=== PATIENT | female | born 1970 | race African-American/Black ===

== ENCOUNTER → 2023-04-07 09:52 | Outpatient (BNVA) | payer OTHER, SELFPAY | PROVIDERS: PCP Internal Medicine; Visit Provider Registered Nurse Emergency | DX: M17.0 Bilateral primary osteoarthritis of knee (principal); M47.816 Spondylosis without myelopathy or radiculopathy, lumbar region; M79.18 Myalgia, other site; E11.9 Type 2 diabetes mellitus without complications; M53.3 Sacrococcygeal disorders, not elsewhere classified; M25.512 Pain in left shoulder | CPT/HCPCS: 99202 ==

== ENCOUNTER 2023-05-09 06:59 | Outpatient (REF) | payer OTHER, SELFPAY ==
--- NOTE | ~2023-05-09 | FL_ITS ---
EXAMINATION: XR FLUOROSCOPY WITH IMAGES CLINICAL INFORMATION: Sacral coccygeal disorder COMPARISON: None available. TECHNIQUE: Fluoroscopy Supervised By: Dr. Jeremy Garcia. Fluoroscopy Time: 0.3 minutes. Cumulative Dose: 5.79 mGy. DAP: 0.100 Gycm2. Images: 2. FINDINGS: Images demonstrate needle and some contrast in the region of the right SI joint. Image demonstrates a needle in some contrast in the region of the left SI joint. FL/FL guidance in treatment room IMPRESSION: Imaging assistance provided during a fluoroscopic procedure
== END 2023-05-09 07:00 | disposition home or self-care (01) ==
LOC: CF 06:59
PROVIDERS: PCP Internal Medicine; Visit Provider Anesthesiology
DX: M53.3 Sacrococcygeal disorders, not elsewhere classified (principal); M47.816 Spondylosis without myelopathy or radiculopathy, lumbar region; M79.18 Myalgia, other site
CPT/HCPCS: 27096; J3301; Q9967

== ENCOUNTER 2023-05-09 07:21 | Outpatient (AMB) | payer OTHER, SELFPAY ==
[2023-05-09 07:33] VITALS: BP 130/82; PULSE 78; RESP 16; O2SAT 96; BMI 37.7
--- NOTE | 2023-05-09 07:33 | A.OFFVIS_ITS ---
Intake Vital Signs 05/09/23 07:33 05/09/23 08:09 Height 5 ft 7 in 5 ft 7 in Weight 241 lb 241 lb BMI 37.7 37.7 BP 130/82 134/80 Blood Pressure Location Rt brachial Lt brachial Position Sitting Sitting Respiration 16 14 Pulse 78 72 Pulse Source Pulse Oximeter Pulse Oximeter Pulse Oximetry (%) 96 97 Oxygen Delivery Method Room Air Room Air Comment Pre-Op Post-Op Intake Visit Reasons: BILAT THERAPEUTIC SIJ INJ/LOCAL Allergies morphine Allergy (Mild, Verified 05/09/23 07:35) Shortness of Breath fentanyl Allergy (Unknown, Verified 05/09/23 07:35) Rash [facility] Medical History (Updated 04/07/23 @ 13:10 by Robyn Cerda APRN, SAND DRIER) Allergic rhinitis Anxiety Cervical cancer COPD (chronic obstructive pulmonary disease) Depression, major, single episode, moderate Diabetes mellitus type 2, controlled Diffuse myofascial pain syndrome Hip pain Hypercholesteremia 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 Insomnia Mechanical low back pain Migraine Obstructive sleep apnea syndrome 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 Surgical History (Updated 04/07/23 @ 13:31 by Robyn Cerda APRN, SAND DRIER) H/O gastric sleeve History of total knee replacement Hx of cholecystectomy Tubal ligation status Physical Exam Vital Signs: Last Vital Signs Pulse 72 05/09/23 08:09 Resp 14 05/09/23 08:09 BP 134/80 05/09/23 08:09 Pulse Ox 97 05/09/23 08:09 Oxygen Delivery Method Room Air 05/09/23 08:09 BMI result Body Mass Index 37.7 Results Reviewed Results Reviewed: 05/09/23 07:42 Lidocaine HCl 2 % MPF [Xylocaine 2 % MPF] 5 ml .ROUTE .STK-MED ONE Triamcinolone Acetonide [Kenalog-40] 40 mg .ROUTE .STK-MED ONE 05/09/23 07:43 iohexoL 350 MG/ML [Omnipaque 350 MG/ML] 100 ml .ROUTE As directed Assessment & Plan Assessment & Plan (1) Bilateral primary osteoarthritis of knee: Code(s): M17.0 - Bilateral primary osteoarthritis of knee (2) Diabetes: Code(s): E11.9 - Type 2 diabetes mellitus without complications (3) Lumbar facet arthropathy: Code(s): M47.816 - Spondylosis without myelopathy or radiculopathy, lumbar region (4) Lumbar spondylosis: Code(s): M47.816 - Spondylosis without myelopathy or radiculopathy, lumbar region (5) Myofascial muscle pain: Code(s): M79.18 - Myalgia, other site (6) Sacroiliac joint pain: Code(s): M53.3 - Sacrococcygeal disorders, not elsewhere classified Plan: Bilateral therapeutic sacroiliac joint injection Informed consent was explained thoroughly to the patient. All questions about benefits and risks for the procedure were answered. Patient came to the operating room and was positioned prone on the operating table with the pillow under the pelvis. [employer] monitors were applied and patient was deeply sedated. Time out was performed delineating name and of the patient, allergies and the nature of the procedure. The lower back and buttocks of the patient were prepped with ChloraPrep prepped and draped with sterile utility towels. C-arm was brought over the operating field and sq picture of patient's pelvis was demonstrated on the screen. For the right joint tilting C-arm contralateral to the site of the joint the most posterior portion of the joints was superimposed with anterior silhouette of the joint. Skin was injected in the projection of the joint slightly medial to the location of the joint with 25 gauge 1/2 inch needle using local lidocaine 2% .After that 22 gauge 3 and 1/2 inch needle was driven to the right joint in tunnel vision fashion. When needle entered the joint capsule injection of the contrast was performed demonstrating intra-articular and minimally periarticular spread of the contrast. After that 4 cc. of ropivacaine 0.5% mixed with kenalog 20 mg was injected into the joint. After that the procedure was performed on the left SI joint in the mirroring fashion. Upon completion of the injections the needle was removed Sterile dressing was applied. Upon completion of the injection patient was taken outside of the operating room to the recovery room where recovered uneventfully. (7) Left shoulder pain: Code(s): M25.512 - Pain in left shoulder Plan Records have been requested from [facility] including recent MRI lumbar spine, recent labs/A1c and visit notes from pain management. Indy is a pleasant 52 year old female who presented to the office today for evaluation and management of her chronic lower back pain. On exam patient's pain appears to be multifactoral with contributions from bilateral SI joint disfunction and lumbar facet arthropathy.. Patient has exhausted conservative treatment including physical therapy that finished 11/2022, chronic Opioid therapy, NSAIDs, topical medications,massage therapy and Tens unit. She continues with HEP. Discussed options for treatment including diagnostic interventional testing, epidural steroid injections, peripheral nerve stimulation with Sprint, RFA and more permanent neuromodulation.? Informational pamphlets provided.? Patient's main pain generator most consistent with SI joint dysfunction bilaterally, she reports reproduction of pain with palpation of PSIS, positive distraction, positive compression, positive thigh thrust and positive dalila bilaterally. Will schedule patient for?fluoroscopy guided bilateral SI joint injections with local anesthetic.? Discussed with patient options for repeat injections, PNS, RFA and SI joint fusions if she receives acceptable pain relief with initial injections. Patient with positive facet loading test and tenderness to palpation over lumbar vertebrae consistent with lumbar facet arthropathy; will plan for fluoroscopy guided bilateral L3-L4-DR L5 MBB with local anesthetic after SI joint injections. If patient receives good pain relief will plan for Sprint PNS vs RFA. Patient wth history of DM type 2, she reports not taking any medication at this time and is unsure of her A1c level. Lab results have been requested from [facility]. Patient was advised to follow up as planned with [facility] for her knee pain/pending TKA. All questions and concerns have been answered and patient agrees with the plan. Follow up after injections and sooner if needed. Orders: Orders FL guidance in treatment room Today M53.3 - Sacrococcygeal disorders, not elsewhere classified Coding Level of Care Code Procedure Only Diagnoses Bilateral primary osteoarthritis of knee M17.0 Diabetes E11.9 Lumbar facet arthropathy M47.816 Lumbar spondylosis M47.816 Myofascial muscle pain M79.18 Sacroiliac joint pain M53.3 Left shoulder pain M25.512
[2023-05-09 08:09] VITALS: BP 134/80; PULSE 72; RESP 14; O2SAT 97; BMI 37.7
== END 2023-05-09 08:09 | disposition home or self-care (01) ==
LOC: HO.PMCPRC 07:21
PROVIDERS: PCP Internal Medicine; Visit Provider Anesthesiology
DX: M53.3 Sacrococcygeal disorders, not elsewhere classified (principal)
CPT/HCPCS: 27096

== ENCOUNTER 2023-06-13 08:03 | Outpatient (AMB) | payer OTHER, SELFPAY ==
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
[2023-06-13 08:25] VITALS: BP 132/64; PULSE 86; O2SAT 99; BMI 37.6
== END 2023-06-13 08:40 | disposition home or self-care (01) ==
PROVIDERS: PCP Internal Medicine; Visit Provider Registered Nurse Emergency
DX: M25.512 Pain in left shoulder (principal); E11.9 Type 2 diabetes mellitus without complications; M47.816 Spondylosis without myelopathy or radiculopathy, lumbar region; M79.18 Myalgia, other site; M53.3 Sacrococcygeal disorders, not elsewhere classified
CPT/HCPCS: 99214

== ENCOUNTER → 2023-06-13 08:03 | Outpatient (BNVA) | payer OTHER, SELFPAY | PROVIDERS: PCP Internal Medicine; Visit Provider Registered Nurse Emergency | DX: M25.512 Pain in left shoulder (principal); E11.9 Type 2 diabetes mellitus without complications; M47.816 Spondylosis without myelopathy or radiculopathy, lumbar region; M79.18 Myalgia, other site; M53.3 Sacrococcygeal disorders, not elsewhere classified; Z98.890 Other specified postprocedural states | CPT/HCPCS: 99212 ==

== ENCOUNTER 2023-06-22 11:05 | Outpatient (REF) | payer OTHER, SELFPAY ==
--- NOTE | ~2023-06-22 | XR_ITS ---
EXAMINATION: XR SHOULDER, LEFT CLINICAL INFORMATION: Pain in left shoulder COMPARISON: None available. TECHNIQUE: 5 views of the left shoulder. FINDINGS: Mild degenerative changes acromioclavicular joint. Mild hypertrophic change along the lateral inferior aspect of the acromion. Glenohumeral alignment preserved with mild degenerative changes. XR/XR shoulder LT min 2V IMPRESSION: Mild degenerative changes.
== END 2023-06-22 11:06 | disposition home or self-care (01) ==
LOC: HO.XRAY 11:05
PROVIDERS: Visit Provider Registered Nurse Emergency
DX: M25.512 Pain in left shoulder (principal)
CPT/HCPCS: 73030

== ENCOUNTER 2023-07-27 10:01 | Outpatient (AMB) | payer OTHER, SELFPAY ==
--- NOTE | 2023-07-27 10:05 | A.OFFVIS_ITS ---
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 Patient reports about 20 years ago she slipped on ice, the past 6-8 months pain has increased. States pain and catching with lifting arm above head. Her pain radiates down her arm and tingling in her hands. No relief with oxycodone that is prescribed for fibromyalgia. No relief with ibuprofen or Tylenol. No other tx. 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 She states she has worsening pain and catching in her shoulder which radiates down to her arm. Her pain comes with overhead reaching and ROM. She also c/o intermittent tingling in her hands which is worse at night and in the mornings. She reports she is unable to sleep on her left shoulder. She denies any neck pain. She finds no relief with ibuprofen or Tylenol. She had tried icing and pain cream in the past with benefits. She has not had any treatment in the past. She has a history of fall on her left shoulder due to slipping on ice about 20 years ago. She has a history of fibromyalgia and was prescribed oxycodone which did not provide her any relief. She also has a history of diabetes. Her sugar level is currently controlled. 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 Obstructive sleep apnea syndrome Hip pain Mechanical low back pain Migraine Insomnia Hypercholesteremia 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 Diffuse myofascial pain syndrome Diabetes mellitus type 2, controlled Depression, major, single episode, moderate Anxiety Allergic rhinitis Cervical cancer COPD (chronic obstructive pulmonary disease) Surgical History Tubal ligation status H/O gastric sleeve History of total knee replacement Hx of cholecystectomy Social History (Updated 07/27/23 @ 10:10 by LANA Dawson) Patient Tobacco Use Status: Former Tobacco user Current occupational status: disabled Current occupation: right hand dominant Review of Systems Const All systems reviewed & are unremarkable except as noted in HPI and below Physical Exam Vital Signs: BMI result Body Mass Index 37.6 Const General: cooperative, healthy appearing, comfortable, no acute distress, well developed and alert Orientation/consciousness: patient oriented x3 HEENT Head: Yes normal to inspection, Yes normocephalic and Yes atraumatic Eyes General: appearance normal, both eyes and all related structures Resp Effort & Inspection: normal respiratory effort and able to speak in complete sentences Cardio Rate: regular rate Peripheral pulses: Peripheral pulses 2+ throughout GI Palpation (GI): Soft to palpation Skin Lesions: no lesions Rashes: no rashes Neuro General: patient oriented x3 Extrem Other: Left shoulder normal to inspection. Tenderness over the bicipital groove and along the deltoid region of the shoulder. Forward flexion to 175, external rotation to 90, internal rotation to S1. Weakness on the left with RTC testing when compared to the contralateral side. Negative Mohr and cross body abduction. NVI. Left wrist: Normal to inspection. Tenderness over the carpal canal. Numbness and tingling over the median nerve distribution of the right hand. Able to make a full fist and fully extend all fingers. Negative Tinel's. Office Procedures Joint Injection/Drain Joint Injection/Drain Primary Site: left shoulder Prep: site was prepped using aseptic technique, ethochloride spray was applied and injection warnings given Injected: 40 mg of, DepoMedrol, with 8 mL of, 1% plain lidocaine and in the subcromial space Approach Used: posterolateral Procedure: The patient tolerated the procedure well and there was some relief with the local anesthesia Coding 35067 - Glenohumeral/Tronchanteric Bursa/Intraarticular Procedure code (CPT) selection complete Results Reviewed Results Reviewed: 07/27/23 10:29 Lidocaine HCl 2 % MPF [Xylocaine 2 % MPF] 5 ml .ROUTE .STK-MED ONE methylPREDNISolone acetate [DEPO-MedroL] 40 mg .ROUTE .STK-MED ONE xrays of the left shoulder obtained on 06/20/23 show mild arthritis changes along the acromion with sclerotic changes over the greater tuberosity. Assessment & Plan Assessment & Plan (1) Tendonitis of left rotator cuff: Code(s): M75.82 - Other shoulder lesions, left shoulder Plan Left shoulder: We discussed options today which include steroid injection. They did consent to move forward with the left shoulder injection, which was tolerated well. I recommended rest, ice and elevation and OTC anti-inflam matories PRN for discomfort. She was referred to a course of physical therapy in the office today. If symptoms persist in 6-8 weeks, I would have her contact the office and we can discuss further MRI imaging. Left wrist: An EMG nerve conduction study has been ordered to further evaluate the etiology of her numbness in the left hand. Orders: Orders PT Evaluation and Treatment Today M75.82 - Other shoulder lesions, left shoulder NE nerve conduction velocity Today R20.0 - Anesthesia of skin, R20.2 - Paresthesia of skin NE electromyogram (EMG) Today R20.0 - Anesthesia of skin, R20.2 - Paresthesia of skin Patient Instructions: Scribed for Belinda Nance PA-C, by [place] medical librarian, on 07/27/2023 at 10:00 AM EST. I, Belinda Nance PA-C, have personally reviewed and agree with the information entered by the scribe. Coding Level of Care Code New Pt Level 3 (21147) Diagnoses Tendonitis of left rotator cuff M75.82 CPT Codes Coding - Joint 7: 97033 - Glenohumeral/Tronchanteric Bursa/Intraarticular ([id number])
[2023-07-27 10:20] VITALS: BMI 37.6
== END 2023-07-27 10:56 | disposition home or self-care (01) ==
PROVIDERS: PCP Internal Medicine; Visit Provider Physician Assistant
DX: M75.82 Other shoulder lesions, left shoulder (principal)
CPT/HCPCS: 20610; 99203

== ENCOUNTER → 2023-07-27 10:01 | Outpatient (BNVA) | payer OTHER, SELFPAY | PROVIDERS: PCP Internal Medicine; Visit Provider Physician Assistant | DX: M75.82 Other shoulder lesions, left shoulder (principal) | CPT/HCPCS: 20610; 99202; J1020 ==

== ENCOUNTER 2023-08-15 07:23 | Outpatient (REF) | payer OTHER, SELFPAY ==
--- NOTE | ~2023-08-15 | FL_ITS ---
EXAMINATION: XR FLUOROSCOPY WITH IMAGES CLINICAL INFORMATION: Sacrococcygeal disorders, not elsewhere classified. COMPARISON: None available. TECHNIQUE: Fluoroscopy Supervised By: Dr. Jeremy Garcia. Fluoroscopy Time: 0.2 minutes. Cumulative Dose: 4.20 mGy. DAP: 0.0729 Gycm2. Images: 2. FINDINGS: Image demonstrates needle placement and contrast injection adjacent to bilateral sacroiliac joints FL/FL guidance in treatment room IMPRESSION: Fluoroscopy guidance for pain management
== END 2023-08-15 07:24 | disposition home or self-care (01) ==
LOC: CF 07:23
PROVIDERS: Visit Provider Anesthesiology
DX: M35.3 Polymyalgia rheumatica (principal); M47.816 Spondylosis without myelopathy or radiculopathy, lumbar region; M79.18 Myalgia, other site; M17.0 Bilateral primary osteoarthritis of knee; M25.512 Pain in left shoulder; E11.9 Type 2 diabetes mellitus without complications
CPT/HCPCS: 27096; J3301

== ENCOUNTER 2023-08-15 10:01 | Outpatient (AMB) | payer OTHER, SELFPAY ==
[2023-08-15 10:13] VITALS: BP 134/88; PULSE 89; RESP 17; O2SAT 94; BMI 37.6
--- NOTE | 2023-08-15 10:13 | MHC.OFFVIS ---
Intake Vital Signs 08/15/23 10:13 08/15/23 10:15 Height 5 ft 7 in 5 ft 7 in Weight 240 lb 240 lb BMI 37.6 37.6 BP 134/88 130/82 Blood Pressure Location Lt brachial Lt brachial Position Sitting Sitting Respiration 17 16 Pulse 89 80 Pulse Source Pulse Oximeter Pulse Oximeter Pulse Oximetry (%) 94 96 Oxygen Delivery Method Room Air Room Air Comment pre-op post-op Intake Visit Reasons: BILAT SIJ STEROID INJ/LOCAL Allergies morphine Allergy (Mild, Verified 08/15/23 10:15) Shortness of Breath fentanyl Allergy (Unknown, Verified 08/15/23 10:15) Rash bee pollen Allergy (Verified 08/15/23 10:15) bee sting- swelling [facility] Medical History (Updated 07/27/23 @ 10:32 by Belinda Nance PA-C) 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 Obstructive sleep apnea syndrome Hip pain Mechanical low back pain Migraine Insomnia Hypercholesteremia 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 Diffuse myofascial pain syndrome Diabetes mellitus type 2, controlled Depression, major, single episode, moderate Anxiety Allergic rhinitis Cervical cancer COPD (chronic obstructive pulmonary disease) Surgical History Tubal ligation status H/O gastric sleeve History of total knee replacement Hx of cholecystectomy Social History (Updated 07/27/23 @ 10:10 by LANA Dawson) Patient Tobacco Use Status: Former Tobacco user Current occupational status: disabled Current occupation: right hand dominant Physical Exam Vital Signs: Last Vital Signs Pulse 80 08/15/23 10:15 Resp 16 08/15/23 10:15 BP 130/82 08/15/23 10:15 Pulse Ox 96 08/15/23 10:15 Oxygen Delivery Method Room Air 08/15/23 10:15 BMI result Body Mass Index 37.6 Assessment & Plan Assessment & Plan (1) Left shoulder pain: Code(s): M25.512 - Pain in left shoulder (2) Diabetes: Code(s): E11.9 - Type 2 diabetes mellitus without complications (3) Lumbar facet arthropathy: Code(s): M47.816 - Spondylosis without myelopathy or radiculopathy, lumbar region (4) Lumbar spondylosis: Code(s): M47.816 - Spondylosis without myelopathy or radiculopathy, lumbar region (5) Myofascial muscle pain: Code(s): M79.18 - Myalgia, other site (6) Sacroiliac joint dysfunction of both sides: Code(s): M53.3 - Sacrococcygeal disorders, not elsewhere classified (7) Bilateral primary osteoarthritis of knee: Code(s): M17.0 - Bilateral primary osteoarthritis of knee (8) Sacroiliac joint pain: Code(s): M53.3 - Sacrococcygeal disorders, not elsewhere classified Plan: Bilateral therapeutic sacroiliac joint injection Informed consent was explained thoroughly to the patient. All questions about benefits and risks for the procedure were answered. Patient came to the operating room and was positioned prone on the operating table with the pillow under the pelvis. [employer] monitors were applied and patient was deeply sedated. Time out was performed delineating name and of the patient, allergies and the nature of the procedure. The lower back and buttocks of the patient were prepped with ChloraPrep prepped and draped with sterile utility towels. C-arm was brought over the operating field and sq picture of patient's pelvis was demonstrated on the screen. For the right joint tilting C-arm contralateral to the site of the joint the most posterior portion of the joints was superimposed with anterior silhouette of the joint. Skin was injected in the projection of the joint slightly medial to the location of the joint with 25 gauge 1/2 inch needle using local lidocaine 2% .After that 22 gauge 3 and 1/2 inch needle was driven to the right joint in tunnel vision fashion. When needle entered the joint capsule injection of the contrast was performed demonstrating intra-articular and minimally periarticular spread of the contrast. After that 4 cc. of ropivacaine 0.5% mixed with kenalog 20 mg was injected into the joint. After that the procedure was performed on the left SI joint in the mirroring fashion. Upon completion of the injections the needle was removed Sterile dressing was applied. Upon completion of the injection patient was taken outside of the operating room to the recovery room where recovered uneventfully. Plan Patient presented to the office today for follow up bilateral therapeutic SI joint injections. She reports 100% pain relief for 3 weeks after procedure bilaterally, sustained pain relief on the right side. Pain on the left has started to return but not to pre-procedure level. Patient would like to plan for repeat injections, she is aware that 5 weeks is too soon for repeat, will schedule after 12 weeks from initial injections. XR of right shoulder ordered, patient referred to Ortho for evaluation. If she is not a surgical candidate may return here for treatment. We discussed options for treatment including diagnostic testing, steroid injections, PNS, or RFA. Given patient is diabetic and already receiving steroid injections of her SI joints will plan for US guided diagnostic suprascapular NB with local anesthetic with plan for Sprint to follow if she receives good results from diagnostic. Topical compound cream sent to pharmacy. Patient instructed on use. May apply to left shoulder and/or over PSIS. All questions and concerns have been addressed with patient, she is in agreement with plan. Patient will follow up here after repeat injections, orthopedic evaluation or sooner if needed. Orders: Orders FL guidance in treatment room Today M53.3 - Sacrococcygeal disorders, not elsewhere classified Coding Level of Care Code Procedure Only Diagnoses Left shoulder pain M25.512 Diabetes E11.9 Lumbar facet arthropathy M47.816 Lumbar spondylosis M47.816 Myofascial muscle pain M79.18 Sacroiliac joint dysfunction of both sides M53.3 Bilateral primary osteoarthritis of knee M17.0 Sacroiliac joint pain M53.3
[2023-08-15 10:15] VITALS: BP 130/82; PULSE 80; RESP 16; O2SAT 96; BMI 37.6
== END 2023-08-15 11:21 | disposition home or self-care (01) ==
LOC: HO.PMCPRC 10:01
PROVIDERS: PCP Internal Medicine; Visit Provider Anesthesiology
DX: M53.3 Sacrococcygeal disorders, not elsewhere classified (principal)
CPT/HCPCS: 27096

== ENCOUNTER 2023-09-19 09:37 | Outpatient (AMB) | payer OTHER, SELFPAY ==
[2023-09-19 09:47] VITALS: BP 156/90; PULSE 73; RESP 18; O2SAT 96; BMI 38.1
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
== END 2023-09-19 10:21 | disposition home or self-care (01) ==
PROVIDERS: PCP Internal Medicine; Visit Provider Registered Nurse Emergency
DX: M47.816 Spondylosis without myelopathy or radiculopathy, lumbar region (principal); M79.18 Myalgia, other site; M53.3 Sacrococcygeal disorders, not elsewhere classified
CPT/HCPCS: 99213

== ENCOUNTER → 2023-09-19 09:37 | Outpatient (BNVA) | payer OTHER, SELFPAY | PROVIDERS: PCP Internal Medicine; Visit Provider Registered Nurse Emergency | DX: G89.29 Other chronic pain (principal); M54.50 Low back pain, unspecified; M47.12 Other spondylosis with myelopathy, cervical region; M47.22 Other spondylosis with radiculopathy, cervical region; M53.3 Sacrococcygeal disorders, not elsewhere classified; M79.18 Myalgia, other site | CPT/HCPCS: 99212 ==

== ENCOUNTER 2023-10-19 13:12 | Outpatient (AMB) | payer OTHER, SELFPAY ==
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
[2023-10-19 13:21] VITALS: BP 137/71; PULSE 74; RESP 18; O2SAT 96; BMI 38.1
== END 2023-10-19 13:58 | disposition home or self-care (01) ==
PROVIDERS: PCP Internal Medicine; Visit Provider Registered Nurse Emergency
DX: M47.816 Spondylosis without myelopathy or radiculopathy, lumbar region (principal); M79.18 Myalgia, other site; M53.3 Sacrococcygeal disorders, not elsewhere classified
CPT/HCPCS: 99213

== ENCOUNTER → 2023-10-19 13:12 | Outpatient (BNVA) | payer OTHER, SELFPAY | PROVIDERS: PCP Internal Medicine; Visit Provider Registered Nurse Emergency | DX: M47.816 Spondylosis without myelopathy or radiculopathy, lumbar region (principal); M79.18 Myalgia, other site; M53.3 Sacrococcygeal disorders, not elsewhere classified | CPT/HCPCS: 99212 ==

== ENCOUNTER → 2023-11-30 07:59 | Outpatient (BNVA) | payer OTHER, SELFPAY | PROVIDERS: PCP Internal Medicine; Visit Provider Physician Assistant Surgical ==

== ENCOUNTER 2023-12-11 08:19 | Outpatient (AMB) | payer OTHER, SELFPAY ==
--- OUTSIDE RECORDS SUMMARY | 2023-12-11 08:20 | XMS_ITS | Continuity of Care Document ---
Author Name Unknown Organization 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 [address] [place], [place] [address] Allergies, Adverse Reactions, Alerts Substance Reaction Severity Status morphine C/O: itching Active Bee Stings swelling, loss of consciousness Active fentaNYL C/O: itching Active Immunizations Given and Recorded Vaccine Date Status Refusal Reason influenza virus vaccine, inactivated 1 09/16/21 Gi cyn influenza virus vaccine, inactivated 2 09/01/20 Gi cyn influenza virus vaccine, inactivated 3 07/23/19 Gi cyn influenza virus vaccine, inactivated 4 08/17/18 Gi cyn influenza virus vaccine, inactivated 5 08/31/17 Gi cyn influenza virus vaccine, inactivated 08/07/15 Give n influenza virus vaccine, inactivated 6 08/21/14 Gi cyn influenza virus vaccine, inactivated 7 07/25/13 Gi cyn influenza virus vaccine, inactivated 8 07/06/12 Gi cyn influenza virus vaccine, inactivated 07/06/11 Give n SARS-CoV-2 (COVID-19) mRNA BNT-162b2 vac 06/23/21 Recorded SARS-CoV-2 (COVID-19) mRNA BNT-162b2 vac 06/02/21 Recorded Typhoid Vaccine, Inactivated 11/19/19 Given Hepatitis A Adult Vaccine 11/19/19 Given tetanus-diphtheria toxoids (Td) 04/23/19 Given tetanus-diphtheria toxoids (Td) 9 11/27/96 Given pneumococcal 23-valent vaccine 10 01/22/19 Given diphtheria-tetanus toxoids (DT) 11 03/19/09 Given Influenza Virus Vaccine (oldterm) 12 10/08/07 Give n 1Result Comment: [id number] given w/out incident 2Result Comment: [facility]: [id number] 3Result Comment: [id number] given w/out incident 4Result Comment: [08/17/2018] [facility] [id number] 5Result Comment: [08/31/2017] given w/out incident [facility]: [phone] 6Result Comment: [08/21/2014] given w/o incident...AA 7Result Comment: [07/25/2013] given w/out incident 8Admin Note: vis sheet given. 9Admin Note: historial data 10Result Comment: [id number] 11Admin Note: mass bio 12Admin Note: sanofi Medications 8 HOUR ARTHRITIS PAIN RELIE 650 Tablet 8 HOUR ARTHRITIS PAIN RELIE 650 Tablet, See Instructions, # 90 tablet, 5 Refills, Maintenance, TAKE2 TABLETS BY MOUTH EVERY 8 HOURS NEEDED FOR PAIN FOR 30 DAYS, 167, cm, 01/14/20 9:59:00 EDT, Height Start Date: 10/27/20 Status: Ordered Advair HFA 115 mcg / 21 mcg See Instructions, INHALE 2 PUFFS BY MOUTH TWO TIMES A DAY RINSE MOUTH AFTER EVERY USE., # 36 Gm, 3 Refills, [facility], [facility], INHALE 2 PUFFS BY MOUTH TWO TIMES A DAY RINSE MOUTH AFTER EVERY USE., 177, cm, 10/19/21 10:00:00 EST, Height, 108, kg... Start Date: 12/21/21 Status: Ordered amitriptyline 100 mg oral tablet 1.5 tablet = 150 mg, By Mouth, Daily at bedtime, # 135 tablet, 3 Refills, Maintenance, 06/02/21 11:36:00 EDT, [facility], cm, 06/02/21 11:35:00 EDT, Height, 108, kg, 05/24/21 19:44:00 EDT, Dry Weight Start Date: 06/02/21 Stop Date: 05/28/22 Status: Ordered amLODIPine 10 mg oral tablet 10 mg, 1, tablet, By Mouth, Daily, # 90 tablet, Refills 1, Tot. Refills 1, Maintenance, 05/28/22 11:36:00 EDT, Route to Pharmacy Electronically, [facility], 177, cm, 10/19/21 10:00:00EST, Height, 108, kg, 05/24/21 19:44:00 EDT, Dry We... Start Date: 05/28/22 Stop Date: 11/24/22 Status: Ordered atorvastatin 40 mg oral tablet 1 tablet = 40 mg, By Mouth, Daily, # 90 tablet, 3 Refills, Maintenance, 01/13/22 17:26:00 EDT, Tablet, increase in dose, 177, cm, 12/21/21 8:59:00 EST, Height, 108, kg, 05/24/21 19:44:00 EDT, Dry Weight Start Date: 01/13/22 Stop Date: 01/08/23 Status: Ordered Bladder pads 120/case Bladder pads 120/case, See Instructions, # 2 each, Refills 3, Tot. Refills 3, Maintenance, use 1 to2 pads daily as needed for urinary incontinence R32, 02/11/21 13:29:00 EDT, Supply Start Date: 02/11/21 Status: Ordered buPROPion 300 mg/24 hours (XL) oral tablet, extended release 1 tablet = 300 mg, By Mouth, Daily, # 90 tablet, 3 Refills, Maintenance, 09/16/21 9:24:00 EST, ER Tablet, [facility], increase in dose, 177, cm, 06/02/21 11:35:00 EDT, Height, 108, kg, 05/24/21 19:44:00 EDT, Dry Weight Start Date: 09/16/21 Stop Date: 09/11/22 Status: Ordered busPIRone 10 mg oral tablet 10 mg, 1, tablet, By Mouth, 2 times a day, # 180 tablet, Refills 3, Tot. Refills 3, Maintenance, 09/16/21 9:24:00 EST, Route to Pharmacy Electronically, [facility], 177, cm, 06/02/21 11:35:00 EDT, Height, 108, kg, 05/24/21 19:44:00 EDT... Start Date: 09/16/21 Stop Date: 09/11/22 Status: Ordered cetirizine 10 mg oral tablet 1 tablet, By Mouth, Daily, PRN NEEDED FOR ALLERGY SYMPTOMS, # 30 tablet, 5 Refills, [facility], 177, cm, 09/16/21 10:06:00 EST, Height, 108, kg, 05/24/21 19:44:00 EDT, Dry Weight Start Date: 09/28/21 Status: Ordered CPAP Supplies - Tubing, Filter, Mask, Water Chamber, Head Gear CPAP Supplies - Tubing, Filter, Mask, Water Chamber, Head Gear, See Instructions, # 1 kit, Refills 11, Tot. Refills 11, Maintenance, use daily at bedtime for Obstructive Sleep Apnea, 10/02/17 8:48:10, Compound Start Date: 10/02/17 Status: Ordered EPINEPHrine 0.3 mg injectable solution See Instructions, INJECT 0.3 MG INTRAMUSCULAR ONCE NEEDED FOR ANAPHYLAXIS (SEVERE ALLERGY), # 2 Unknown, 1 Refills, [facility], 177, cm, 06/02/21 11:35:00 EDT, Height, 108, kg, 05/24/21 19:44:00 EDT, Dry Weight Start Date: 09/08/21 Status: Ordered FLUoxetine 20 mg oral capsule 3, capsule, By Mouth, Daily, for 90 days, # 270 capsule, Refills 0, Physician Stop, Route to Pharmacy Electronically, [facility], 177, cm, 10/19/21 10:00:00 EST, Height, 108, kg, 05/24/21 19:44:00 EDT, Dry Weight Start Date: 11/30/21 Stop Date: 02/28/22 Status: Ordered gabapentin 300 mg oral capsule See Instructions, TAKE 3 CAPSULES BY MOUTH IN THE MORNING, 3 CAPSULES EARLY PM AND 4 CAPSULES AT BEDTIME., # 900 capsule, Refills 3, Instructions Replace Required Details, Route to Pharmacy Electronically, [facility], 177, cm, 12/21/21 8:59:... Start Date: 01/11/22 Status: Ordered gloves, large gloves, large, See Instructions, # 50 each, Refills 11, Tot. Refills 11, Maintenance, use when handling soiled linen Dx: N39.4, 03/20/20 17:02:00 EDT, Supply Start Date: 03/20/20 Status: Ordered losartan 50 mg oral tablet 50 mg, 1, tablet, By Mouth, Daily, # 90 tablet, Refills 3, Tot. Refills 3, Maintenance, 06/02/21 11:36:00 EDT, Route to Pharmacy Electronically, [facility], lower dose, 177, cm, 06/02/21 11:35:00 EDT, Height, 108, kg, 05/24/21 19:44:00... Start Date: 06/02/21 Stop Date: 05/28/22 Status: Ordered Mapap Arthritis Pain 650 mg oral tablet, extended release 2 tablet, By Mouth, Every 8 hours, PRN NEEDED FOR PAIN FOR, for 30 days, # 90 tablet, 9 Refills,Physician Stop 10/17/22 9:00:00 EST, 12/21/21 9:00:00 EST, [facility], 177, cm, 12/21/21 8:59:00 EST, Height, 108, kg, 05/24/21 19:44:0... Start Date: 12/21/21 Stop Date: 10/17/22 Status: Ordered nebulizer nebulizer, See Instructions, # 1 kit, Refills 0, Tot. Refills 0, Maintenance, use as directed for shortness of breath Dx: COPD, 06/02/21 11:28:00 EDT, Supply Start Date: 06/02/21 Status: Ordered OxyCONTIN 15 mg oral tablet, extended release See Instructions, TAKE 1 TABLET BY MOUTH EVERY 12 HOURS NEEDED FOR SEVERE PAIN FOR 28 DAYS, # 56tablet, 0 Refills, Maintenance, 01/18/22 7:46:00 EDT, [facility], 177, cm, :59:00 EST, Height, 108, kg, 05/24/21 19:44:00 EDT... Start Date: 01/18/22 Status: Ordered Periwash Perineal cleaning solution Periwash Perineal cleaning solution, See Instructions, # 1,000 mL, Refills 3, Tot. Refills 3, Maintenance, apply as directed as needed Dx: urine incontinence (N39.4), 03/20/20 17:02:00 EDT, Supply Start Date: 03/20/20 Status: Ordered Protonix 40 mg oral delayed release tablet 1 tablet = 40 mg, By Mouth, Daily, # 90 tablet, 3 Refills, Maintenance, 09/16/21 9:24:00 EST, EC Tablet, 177, cm, 06/02/21 11:35:00 EDT, Height, 108, kg, 05/24/21 19:44:00 EDT, Dry Weight Start Date: 09/16/21 Stop Date: 09/11/22 Status: Ordered spironolactone 25 mg oral tablet 25 mg, 1, tablet, By Mouth, 2 times a day, # 180 tablet, Refills 1, Tot. Refills 1, Maintenance, 01/11/22 15:16:00 EDT, Route to Pharmacy Electronically, [facility], Partial fill uponpatient request if the prescription is for a schedu... Start Date: 01/11/22 Stop Date: 07/10/22 Status: Ordered Ventolin HFA 108 mcg/inh inhalation aerosol with adapter 2 puffs, Inhalation, 4 times a day, PRN NEEDED FOR WHEEZING, # 18 Gm, 6 Refills, 12/28/21 11:00:00 EST, [facility], 177, cm, 12/21/21 8:59:00 EST, Height, 108, kg, 05/24/21 19:44:00 EDT, Dry Weight Start Date: 12/28/21 Status: Ordered Zofran 4 mg oral tablet 1 tablet = 4 mg, By Mouth, Every 8 hours, PRN Nausea & Vomiting, # 12 tablet, 0 Refills, Acute 06/09/22 10:43:00 EDT, 06/09/21 10:43:00 EDT, Tablet, [facility], Partial fill upon patient request if the prescription is for a schedule II... Start Date: 06/09/21 Stop Date: 06/09/22 Status: Ordered zolpidem 10 mg oral tablet 1 tablet, By Mouth, Daily at bedtime, PRN NEEDED FOR INSOMNIA, # 28 tablet, 0 Refills, Acute 02/18/22 7:47:00 EDT, 01/18/22 7:47:00 EDT, [facility] refill when due, 177, cm, 12/21/21 8:59:00 EST, Height, 108, kg, 05/24/21 19:44:00... Start Date: 01/18/22 Stop Date: 02/18/22 Status: Ordered Problem List Condition Effective Dates Status Health Status Inform ant Allergic rhinitis(Confirmed) Active Anxiety(Confirmed) Active Knee pain(Confirmed) Active Hip pain(Confirmed) Active Cholecystectomy(Confirmed) 05/1993 Active COPD - Chronic obstructive p ulmonary disease(Confirmed) Active Ex-cigarette smoker(Confirmed) Active Family history of alcoholism(Confirmed) Active Family history of substance abuse(Confirmed) Active Family history of depression(Confirmed) Active FH: CVA/stroke (grandmother)(Confirmed) Active FH: Diabetes mellitus (aunt)(Confirmed) Active FH: 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 (mom)(Confirmed) Active [facility] current use of opi ate analgesic(Confirmed) Active Hx of total RIGHT knee arthroplasty(Confirmed) 12/12/13 Active Hypercholesterolemia(Confirmed) 2004 Active 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(Confirmed) 2001 Active Insomnia(Confirmed) Active Mechanical low back pain(Confirmed) Active Depression, major(Confirmed) Active Migraine(Confirmed) Active Diffuse myofascial pain(Confirmed) Active Obese class II(Confirmed) Active Obesity(Confirmed) 02/12/13 Active Osteoarthritis of knee(Confirmed) Active 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
--- OUTSIDE RECORDS SUMMARY | 2023-12-11 08:20 | XMS_ITS | Continuity of Care Document ---
Author Name Unknown Organization [facility] Address [address] [place] [address]- Care Team Providers Care Apple Sorter Name Role Phone Demario Nassar MD Primary Care Physician Encounter [facility] Date(s): 10/02/23 - 11/01/23 [facility] [address] [place], [place] [address] Allergies, Adverse Reactions, Alerts Substance Reaction Severity Status morphine C/O: itching Active Bee Stings swelling, loss of consciousness Active fentaNYL C/O: itching Active Immunizations Given and Recorded Vaccine Date Status Refusal Reason influenza virus vaccine, inactivated 1, 2 12/05/22 Given influenza virus vaccine, inactivated 3 09/16/21 Gi cyn influenza virus vaccine, inactivated 4 09/01/20 Gi cyn influenza virus vaccine, inactivated 5 07/23/19 Gi cyn influenza virus vaccine, inactivated 6 08/17/18 Gi cyn influenza virus vaccine, inactivated 7 08/31/17 Gi cyn influenza virus vaccine, inactivated 08/07/15 Give n influenza virus vaccine, inactivated 8 08/21/14 Gi cyn influenza virus vaccine, inactivated 9 07/25/13 Gi cyn influenza virus vaccine, inactivated 10 07/06/12 G iven influenza virus vaccine, inactivated 07/06/11 Give n SARS-CoV-2 (COVID-19) mRNA BNT-162b2 vac 06/23/21 Recorded SARS-CoV-2 (COVID-19) mRNA BNT-162b2 vac 06/02/21 Recorded Typhoid Vaccine, Inactivated 11/19/19 Given Hepatitis A Adult Vaccine 11/19/19 Given tetanus-diphtheria toxoids (Td) 04/23/19 Given tetanus-diphtheria toxoids (Td) 11 11/27/96 Given pneumococcal 23-valent vaccine 12 01/22/19 Given diphtheria-tetanus toxoids (DT) 13 03/19/09 Given Influenza Virus Vaccine (oldterm) 14 10/08/07 Give n 1Early/Late Reason: Early/Late Reason: Other : not documented 2Result Comment: [id number] given w/out incident 3Result Comment: [id number] given w/out incident 4Result Comment: [facility]: 95241-344-24 5Result Comment: [id number] given w/out incident 6Result Comment: [08/17/2018] [facility] [id number] 7Result Comment: [08/31/2017] given w/out incident [facility]: [id number] 8Result Comment: [08/21/2014] given w/o incident...AA 9Result Comment: [07/25/2013] given w/out incident 10Admin Note: vis sheet given. 11Admin Note: historial data 12Result Comment: [id number] 13Admin Note: mass bio 14Admin Note: sanofi Medications 8 HOUR ARTHRITIS PAIN RELIE 650 Tablet 8 HOUR ARTHRITIS PAIN RELIE 650 Tablet, See Instructions, # 90 tablet, 5 Refills, Maintenance, TAKE2 TABLETS BY MOUTH EVERY 8 HOURS NEEDED FOR PAIN FOR 30 DAYS, 167, cm, 01/14/20 9:59:00 EDT, Height Start Date: 10/27/20 Status: Ordered acetaminophen 650 mg oral tablet, extended release 2 tablet, By Mouth, Every 8 hours, PRN NEEDED FOR PAIN, # 80 tablet, 5 Refills, Maintenance, 07/28/23 13:25:00 EDT, [facility], [facility], [facility], 05/29/23 18:21:00 EDT, Height, 114.4, kg, 02/14/22 21:57:00 EDT, Dry Weight Start Date: 07/28/23 Status: Ordered Advair HFA 115 mcg / 21 mcg 2 puffs, Inhalation, 2 times a day, AFTER EVERY USE., # 36 Gm, 1 Refills, Maintenance, 07/28/23 13:25:00 EDT, [facility], [facility], INHALE 2 PUFFS BY MOUTH TWO TIMES A DAY RINSE MOUTH AFTER EVERYUSE., 167, cm, 05/29/23 18:21:00 EDT, Height, 114.4... Start Date: 07/28/23 Status: Ordered All Day Allergy 10 mg oral tablet 1 tablet, By Mouth, Daily, PRN NEEDED FOR ALLERGY SYMPTOMS, # 30 tablet, 5 Refills, Maintenance,06/20/23 7:39:00 EDT, [facility], 167, cm, 05/29/23 18:21:00 EDT, Height, 114.4, kg, 02/14/22 21:57:00 EDT, Dry Weight Start Date: 06/20/23 Status: Ordered amLODIPine 10 mg oral tablet 10 mg, 1, tablet, By Mouth, Daily, # 90 tablet, Refills 3, Tot. Refills 3, Maintenance, 11/25/22 15:31:00 EST, Route to Pharmacy Electronically, [facility], 177, cm, 12/21/21 8:59:00 EST, Height, 114.4, kg, 02/14/22 21:57:00 EDT, Dry W... Start Date: 11/25/22 Stop Date: 11/20/23 Status: Ordered atorvastatin 40 mg oral tablet 1 tablet, By Mouth, Daily, # 90 tablet, 1 Refills, Maintenance, 02/03/23 16:11:00 EDT, [facility], 167, cm, 12/05/22 10:53:00 EST, Height, 114.4, kg, 02/14/22 21:57:00 EDT, Dry Weight Start Date: 02/03/23 Status: Ordered Bladder pads 120/case Bladder pads 120/case, See Instructions, # 2 each, Refills 3, Tot. Refills 3, Maintenance, use 1 to2 pads daily as needed for urinary incontinence R32, 02/11/21 13:29:00 EDT, Supply Start Date: 02/11/21 Status: Ordered buPROPion 200 mg/12 hours (SR) oral tablet, extended release 1 tablet = 200 mg, By Mouth, Daily, # 30 tablet, 0 Refills, Maintenance, 05/29/23 18:14:00 EDT, ER Tablet, Partial fill upon patient request if the prescription is for a schedule II opioid drug. Start Date: 05/29/23 Stop Date: 06/28/23 Status: Ordered busPIRone 15 mg oral tablet 1 tablet = 15 mg, By Mouth, Daily at bedtime, # 30 tablet, 0 Refills, Maintenance, 05/29/23 18:16:00 EDT, Tablet, Partial fill upon patient request if the prescription is for a schedule II opioid drug. Start Date: 05/29/23 Stop Date: 06/28/23 Status: Ordered busPIRone 7.5 mg oral tablet 2 tablet = 15 mg, By Mouth, 2 times a day, # 120 tablet, 0 Refills, Maintenance, 10/21/22 13:38:00 EST, Tablet, Partial fill upon patient request if the prescription is for a schedule II opioid drug. Start Date: 10/21/22 Stop Date: 11/20/22 Status: Ordered chlorthalidone 25 mg oral tablet 25 mg, 1, tablet, By Mouth, Daily, # 90 tablet, Refills 3, Tot. Refills 3, Maintenance, 05/29/23 18:09:00 EDT, [facility] spironolactone, 167, cm, 05/29/23 17:54:00 EDT, Height, 114.4, kg, 04... Start Date: 05/29/23 Stop Date: 05/23/24 Status: Ordered CPAP Supplies - Tubing, Filter, [...] (SEVERE ALLERGY), # 2 Unknown, 1 Refills, Maintenance, 05/12/23 12:41:00 EDT, [facility], [facility], cm, 12/05/22 10:53:00 EST, Height, 114.4, kg, 02/14/22 21:57:00 EDT,... Start Date: 05/12/23 Status: Ordered gabapentin 300 mg oral capsule See Instructions, TAKE 3 CAPSULES BY MOUTH IN THE MORNING, 3 CAPSULES EARLY PM AND 4 CAPSULES AT BEDTIME., # 900 capsule, Refills 3, Maintenance, 12/23/22 13:41:00 EST, Instructions Replace Required Details, Route to Pharmacy Electronically, [facility]... Start Date: 12/23/22 Status: Ordered gloves, large gloves, large, See Instructions, # 50 each, Refills 11, Tot. Refills 11, Maintenance, use when handling soiled linen Dx: N39.4, 03/20/20 17:02:00 EDT, Supply Start Date: 03/20/20 Status: Ordered losartan 100 mg oral tablet 1 tablet = 100 mg, By Mouth, Daily, # 90 tablet, 4 Refills, Maintenance, 05/29/23 18:09:00 EDT, Tablet, [facility]., increase in dose, 167, cm, 05/29/23 17:54:00 EDT, Height, 114.4, kg, 02/14/22 21:57:00 EDT, Dry Weight Start Date: 05/29/23 Stop Date: 08/21/24 Status: Ordered nebulizer nebulizer, See Instructions, # 1 kit, Refills 0, Tot. Refills 0, Maintenance, use as directed for shortness of breath Dx: COPD, 06/02/21 11:28:00 EDT, Supply Start Date: 06/02/21 Status: Ordered OxyCONTIN 15 mg oral tablet, extended release 1 tablet = 15 mg, By Mouth, Every 12 hours, PRN Pain , Severe, # 56 tablet, 0 Refills, Maintenance,10/05/23 10:42:00 EST, [facility]., 167, cm, 05/29/23 18:21:00 EDT, Height, 114.4, kg, 02/14/22 21:57:00 EDT, Dry Weight Start Date: 10/05/23 Stop Date: 11/02/23 Status: Ordered pantoprazole 40 mg oral delayed release tablet 1 tablet, By Mouth, Daily, # 90 tablet, 1 Refills, Maintenance, 10/27/23 21:31:00 EST, 167, cm, 05/29/23 18:21:00 EDT, Height, 114.4, kg, 02/14/22 21:57:00 EDT, Dry Weight Start Date: 10/27/23 Status: Ordered QUEtiapine 25 mg oral tablet 50 mg, 2, tablet, By Mouth, Daily at bedtime, # 30 tablet, Refills 0, Maintenance, 05/29/23 18:16:00 EDT, Partial fill upon patient request if the prescription is for a schedule II opioid drug. Start Date: 05/29/23 Stop Date: 06/28/23 Status: Ordered Ventolin HFA 108 mcg/inh inhalation aerosol with adapter 2 puffs, Inhalation, 4 times a day, PRN NEEDED FOR WHEEZING, # 18 Gm, 5 Refills, Maintenance, 05/03/23 18:41:00 EDT, [facility], [facility], cm, 12/05/22 10:53:00 EST, Height, 114.4, kg, 02/14/22 21:57:00 EDT, Dry Weight Start Date: 05/03/23 Status: Ordered Problem List Condition Confirmation Course Effective Dates Status Health Status Informant Allergic rhinitis Confirmed Active Anxiety Confirmed Active Hip pain Confirmed Active Localized osteoarthritis of both knees Confirmed Active 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/22 Active Cholecystectomy Confirmed 05/1993 Active COPD - Chronic obstructive pulmonary disease Confirmed Active Family history of alcoholism Confirmed Active Family history of substance abuse Confirmed Active Family history of colon cancer in mother Confirmed Active Family history of depression Confirmed Active FH: CVA/stroke (grandmother) Confirmed Active FH: Diabetes mellitus (aunt) Confirmed Active FH: 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 (mom) Confirmed Active [facility] current use of opiate analgesic Confirmed Active Hx of total RIGHT knee arthroplasty Confirmed 12/12/13 Active Hypercholesterolemia Confirmed 2004 Active 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 Confirmed 2001 Active Insomnia Confirmed Active Mechanical low back pain Confirmed Active Migraine Confirmed Active Depression, major, single episode, moderate Confirmed Active Diffuse myofascial pain Confirmed Active Osteoarthritis of knee Confirmed Active Osteoarthritis of lumbar spine Confirmed 09/27/12 Active Severe obesity (BMI 35.0-39.9) with comorbidity Confirmed Active cervical cancer Confirmed 2001 Active Tear of medial collateral ligament of knee joint Confirmed Active Tear of medial meniscus of knee Confirmed Active Tobacco dependence Confirmed Active Diabetes mellitus type 2, controlled Confirmed Active Urine incontinence Confirmed Active Social History Social History Type Response Smoking Status 5-9 cigarettes (betw een 1/4 to 1/2 pack)/day in last 30 days; Type: Cigarettes entered on: 02/14/22 Sex Patient Care team information Care Team Personnel Name: Ermelinda Rice RN Position: [facility] RN Member Role: Primary Care Nurse Name: Tri Sebastian RN Position: [facility] RN Member Role: Primary Care Nurse Name: Demario Nassar MD Position: [facility] Physician - Primary Care Member Role: PCP Address: Address: [address] [place] [address] Adult [place] [address]- Care Team Related Persons Name: EPIFANIO STYLES Address: home [address] [place] [id number] Name: DEUCE SEE
--- OUTSIDE RECORDS SUMMARY | 2023-12-11 08:20 | XMS_ITS | Continuity of Care Document ---
Author Name Unknown Organization [facility] Address [address] [place] [address]- Care Team Providers Care Donor Services Manager Name Role Phone Demario Nassar MD Primary Care Physician Encounter [facility] Date(s): 12/11/20 - 01/10/21 [facility] [address], [place] [address] Allergies, Adverse Reactions, Alerts Substance Reaction Severity Status morphine C/O: itching Active Bee Stings swelling, loss of consciousness Active fentaNYL C/O: itching Active Immunizations Given and Recorded Vaccine Date Status Refusal Reason influenza virus vaccine, inactivated 1 09/01/20 Gi cyn influenza virus vaccine, inactivated 2 07/23/19 Gi cyn influenza virus vaccine, inactivated 3 08/17/18 Gi cyn influenza virus vaccine, inactivated 4 08/31/17 Gi cyn influenza virus vaccine, inactivated 08/07/15 Give n influenza virus vaccine, inactivated 5 08/21/14 Gi cyn influenza virus vaccine, inactivated 6 07/25/13 Gi cyn influenza virus vaccine, inactivated 7 07/06/12 Gi cyn influenza virus vaccine, inactivated 07/06/11 Give n Typhoid Vaccine, Inactivated 11/19/19 Given Hepatitis A Adult Vaccine 11/19/19 Given tetanus-diphtheria toxoids (Td) 04/23/19 Given tetanus-diphtheria toxoids (Td) 8 11/27/96 Given pneumococcal 23-valent vaccine 9 01/22/19 Given diphtheria-tetanus toxoids (DT) 10 03/19/09 Given Influenza Virus Vaccine (oldterm) 11 10/08/07 Give n 1Result Comment: [facility]: [id number] 2Result Comment: [id number] given w/out incident 3Result Comment: [08/17/2018] [facility] [id number] 4Result Comment: [08/31/2017] given w/out incident [facility]: [id number] 5Result Comment: [08/21/2014] given w/o incident...AA 6Result Comment: [07/25/2013] given w/out incident 7Admin Note: vis sheet given. 8Admin Note: historial data 9Result Comment: [id number] 10Admin Note: mass bio 11Admin Note: sanofi Medications 8 HOUR ARTHRITIS PAIN RELIE 650 Tablet 8 HOUR ARTHRITIS PAIN RELIE 650 Tablet, See Instructions, # 90 tablet, 5 Refills, Maintenance, TAKE2 TABLETS BY MOUTH EVERY 8 HOURS NEEDED FOR PAIN FOR 30 DAYS, 167, cm, 01/14/20 9:59:00 EDT, Height Start Date: 10/27/20 Status: Ordered Advair HFA 115 mcg / 21 mcg 2 puffs, Inhalation, 2 times a day, Dx: COPD rinse mouth and throat after use, # 3 each, 3 Refills,Maintenance, 04/16/20 10:16:00 EDT, Aerosol, [facility], replaces Rx for symbicort not covered by her insurance, 2 puffs Inhalation 2... Start Date: 04/16/20 Stop Date: 04/11/21 Status: Ordered amitriptyline 100 mg oral tablet 1.5 tablet = 150 mg, By Mouth, Daily at bedtime, # 135 tablet, 3 Refills, Maintenance, 04/16/20 10:16:00 EDT, Tablet, [facility]., 167, cm, 01/14/20 9:59:00 EDT, Height Start Date: 04/16/20 Stop Date: 04/11/21 Status: Ordered amLODIPine 10 mg oral tablet 10 mg, 1, tablet, By Mouth, Daily, # 90 tablet, Refills 3, Tot. Refills 3, Maintenance, 04/16/20 10:16:00 EDT, Route to Pharmacy Electronically, [facility], 167, cm, 01/14/20 9:59:00 EDT, Height Start Date: 04/16/20 Stop Date: 04/11/21 Status: Ordered amoxicillin 500 mg oral capsule 4 capsule = 2,000 mg, By Mouth, Once, given 1 hour prior to the procedure, # 4 capsule, 0 Refills, Maintenance, 05/31/20 17:21:00 EDT, Capsule Start Date: 05/31/20 Stop Date: 06/01/20 Status: Ordered atorvastatin 20 mg oral tablet 1 tablet = 20 mg, By Mouth, Daily, # 90 tablet, 3 Refills, Maintenance, 05/11/20 9:45:00 EDT, Tablet, [facility], 167, cm, 01/14/20 9:59:00 EDT, Height Start Date: 05/11/20 Stop Date: 05/06/21 Status: Ordered buPROPion 300 mg/24 hours (XL) oral tablet, extended release 1 tablet = 300 mg, By Mouth, Daily, # 90 tablet, 3 Refills, Maintenance, 09/29/20 14:40:00 EST, ER Tablet, [facility], increase in dose, 167, cm, 01/14/20 9:59:00 EDT, Height Start Date: 09/29/20 Stop Date: 09/24/21 Status: Ordered busPIRone 10 mg oral tablet 10 mg, 1, tablet, By Mouth, 2 times a day, # 180 tablet, Refills 3, Tot. Refills 3, Maintenance, 07/07/20 12:31:00 EDT, Route to Pharmacy Electronically, [facility], 167, cm, 209:59:00 EDT, Height Start Date: 07/07/20 Stop Date: 07/02/21 Status: Ordered cetirizine 10 mg oral tablet 1 tablet = 10 mg, By Mouth, Daily, PRN for allergy symptoms, # 30 tablet, 8 Refills, Maintenance, 09/01/20 17:26:00 EST, Tablet, [facility], 167, cm, 01/14/20 9:59:00 EDT, Height Start Date: 09/01/20 Stop Date: 05/29/21 Status: Ordered chlorthalidone 25 mg oral tablet 25 mg, 1, tablet, By Mouth, Daily, # 90 tablet, Refills 3, Tot. Refills 3, Maintenance, 04/16/20 10:15:00 EDT, Route to Pharmacy Electronically, [facility], replaces hydrochlorothiazide, 167, cm, 01/14/20 9:59:00 EDT, Height Start Date: 04/16/20 Stop Date: 04/11/21 Status: Ordered CPAP Supplies - Tubing, Filter, Mask, Water Chamber, Head Gear CPAP Supplies - Tubing, Filter, Mask, Water Chamber, Head Gear, See Instructions, # 1 kit, Refills 11, Tot. Refills 11, Maintenance, use daily at bedtime for Obstructive Sleep Apnea, 10/02/17 8:48:10, Compound Start Date: 10/02/17 Status: Ordered EpiPen 2-Bonilla 0.3 mg injectable kit = 0.3 mg, Intramuscular, Once, PRN for anaphylaxis (severe allergy), # 1 kit, 1 Refills, Soft Stop,04/16/20 10:16:00 EDT, [facility], 167, cm, 01/14/20 9:59:00 EDT, Height Start Date: 04/16/20 Status: Ordered FLUoxetine 20 mg oral capsule 3, capsule, By Mouth, Daily, # 270 capsule, Refills 3, Tot. Refills 0, Maintenance, 02/21/20 15:09:00 EDT, Route to Pharmacy Electronically, [facility], 167, cm, 01/14/20 9:59:00 EDT, Height Start Date: 02/21/20 Stop Date: 05/21/20 Status: Ordered gabapentin 300 mg oral capsule See Instructions, 3 capsule By Mouthin a.m. 3 in early pm and 4 at bedtime. Dx: chronic low back pain, # 900 capsule, Refills 3, Tot. Refills 3, Maintenance, 10/29/20 9:43:00 EST, Instructions Replace Required Details, Route to Pharmacy Electronical... Start Date: 10/29/20 Status: Ordered gloves, large gloves, large, See Instructions, # 50 each, Refills 11, Tot. Refills 11, Maintenance, use when handling soiled linen Dx: N39.4, 03/20/20 17:02:00 EDT, Supply Start Date: 03/20/20 Status: Ordered losartan 50 mg oral tablet 50 mg, 1, tablet, By Mouth, Daily, # 90 tablet, Refills 3, Tot. Refills 3, Maintenance, 01/14/20 10:17:00 EDT, [facility], 167, cm, 01/14/20 9:59:00 EDT, Height Start Date: 01/14/20 Stop Date: 01/08/21 Status: Ordered Meclizine By Mouth, 3 times a day, 0 Refills, Maintenance, 12/14/18 15:25:26 EST Start Date: 12/14/18 Status: Ordered nystatin topical 601440 u/gm powder See Instructions, APPLY TOPICALLY TO AFFECTED AREA TWO TIMES A DAY FOR 14 DAYS, # 30 Gm, 0 Refills,[facility], APPLY TOPICALLY TO AFFECTED AREA TWO TIMES A DAY FOR 14 DAYS, 167,cm, 10/07/19 10:55:00 EST, Height Start Date: 11/21/19 Status: Ordered oxycodone 15 mg oral tablet, extended release 1 tablet = 15 mg, By Mouth, Every 12 hours, PRN Pain , Severe, for 28 days, DX 719.45 hip pain 719.46 knee pain Z79.891pt can request partial refill, # 56 tablet, 0 Refills, Hard Stop 01/19/21 12:30:00 EDT, 12/22/20 12:30:00 EST, ER Tablet, [facility]... Start Date: 12/22/20 Stop Date: 01/19/21 Status: Ordered Periwash Perineal cleaning solution Periwash Perineal cleaning solution, See Instructions, # 1,000 mL, Refills 3, Tot. Refills 3, Maintenance, apply as directed as needed Dx: urine incontinence (N39.4), 03/20/20 17:02:00 EDT, Supply Start Date: 03/20/20 Status: Ordered Protonix 40 mg oral delayed release tablet 1 tablet = 40 mg, By Mouth, Daily, # 90 tablet, 3 Refills, Maintenance, 04/16/20 10:16:00 EDT, EC Tablet, 167, cm, 01/14/20 9:59:00 EDT, Height Start Date: 04/16/20 Stop Date: 04/11/21 Status: Ordered Ventolin HFA 108 mcg/inh inhalation aerosol with adapter 2 puffs, Inhalation, 4 times a day, PRN for wheezing, # 1 each, 5 Refills, Soft Stop, 04/06/21 11:36:00 EDT, [facility]ol[facility] replaces proair, 167, cm, 01/14/20 9:59:00 EDT, Height Start Date: 04/06/21 Stop Date: 10/03/21 Status: Ordered Ventolin HFA 108 mcg/inh inhalation aerosol with adapter 2 puffs, Inhalation, 4 times a day, PRN for wheezing, for 30 days, # 1 each, 5 Refills, Hard Stop 04/06/21 11:36:00 EDT, 10/08/20 11:36:00 EST, Aerosol, [facility]., replaces proair, 167, cm, 01/14/20 9:59:00 EDT, Height Start Date: 10/08/20 Stop Date: 04/06/21 Status: Ordered zolpidem 10 mg oral tablet 1 tablet = 10 mg, By Mouth, Daily at bedtime, PRN as needed for insomnia, # 28 tablet, 0 Refills, Soft Stop, 01/08/21 15:14:00 EST, [facility]., 167, cm, 01/14/20 9:59:00 EDT, Height Start Date: 01/08/21 Stop Date: 02/05/21 Status: Ordered Problem List Condition Effective Dates [...] mellitus (aunt)(Confirmed) Active FH: 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 (mom)(Confirmed) Active [facility] current use of opi ate analgesic(Confirmed) Active Hx of total RIGHT knee arthroplasty(Confirmed) 12/12/13 Active Hypercholesterolemia(Confirmed) 2004 Active 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(Confirmed) 2001 Active Insomnia(Confirmed) Active Mechanical low back pain(Confirmed) Active Depression, major(Confirmed) Active Migraine(Confirmed) Active Diffuse myofascial pain(Confirmed) Active Obesity(Confirmed) 02/12/13 Active Osteoarthritis of knee(Confirmed) Active 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
--- OUTSIDE RECORDS SUMMARY | 2023-12-11 08:20 | XMS_ITS | Continuity of Care Document ---
Author Name Unknown Organization [facility] Address [address] [place] [address]- Care Team Providers Care Med Surg Nurse Name Role Phone Demario Nassar MD Primary Care Physician Encounter [facility] Date(s): 07/01/21 - 07/31/21 [facility] [address] [place], [place] [address] Attending Physician: Admtr, Dario Allergies, Adverse Reactions, Alerts Substance Reaction Severity Status morphine C/O: itching Active Bee Stings swelling, loss of consciousness Active fentaNYL C/O: itching Active Immunizations Given and Recorded Vaccine Date Status Refusal Reason SARS-CoV-2 (COVID-19) mRNA BNT-162b2 vac 06/02/21 Recorded influenza virus vaccine, inactivated 1 09/01/20 Gi [...] (oldterm) 11 10/08/07 Give n 1Result Comment: [facility]: [id number] 2Result Comment: [id number] given w/out incident 3Result Comment: [08/17/2018] [facility] [id number] 4Result Comment: [08/31/2017] given w/out incident [facility]: [id number] 5Result Comment: [08/21/2014] given w/o incident...AA 6Result Comment: [07/25/2013] given w/out incident 7Admin Note: vis sheet given. 8Admin Note: historial data 9Result Comment: [id number] 10Admin Note: mass bio 11Admin Note: sanofi [...] after use, # 3 each, 3 Refills,Maintenance, 05/28/21 18:23:00 EDT, Aerosol, [id number], replaces Rx for symbicort not covered by her insurance, 2 puffs Inhalation 2 times a... Start Date: 05/28/21 Stop Date: 05/23/22 Status: Ordered albuterol 0.083% inhalation solution 3 mL = 2.5 mg, Inhalation, Every 6 hours, PRN for wheezing, Dx: COPD J44.9, # 60 each, 2 Refills, Maintenance, 06/02/21 11:29:00 EDT, [facility] upon patient request if the prescription is for a schedule II opio... Start Date: 06/02/21 Status: Ordered amitriptyline 100 mg oral tablet 1.5 tablet = 150 mg, By Mouth, Daily at bedtime, # 135 tablet, 3 Refills, Maintenance, 06/02/21 11:36:00 EDT, Tablet, [facility]., 177, cm, 06/02/21 11:35:00 EDT, Height, 108, kg, 05/24/21 19:44:00 EDT, Dry Weight Start Date: 06/02/21 Stop Date: 05/28/22 Status: Ordered amLODIPine 10 mg oral tablet 10 mg, 1, tablet, By Mouth, Daily, # 90 tablet, Refills 3, Tot. Refills 3, Maintenance, 06/02/21 11:36:00 EDT, Route to Pharmacy Electronically, [facility], 177, cm, 06/02/21 11:35:00EDT, Height, 108, kg, 05/24/21 19:44:00 EDT, Dry We... Start Date: 06/02/21 Stop Date: 05/28/22 Status: Ordered atorvastatin 20 mg oral tablet 1 tablet = 20 mg, By Mouth, Daily, # 90 tablet, 1 Refills, Maintenance, 07/26/21 13:55:00 EDT, Tablet, [facility], 177, cm, 06/02/21 11:35:00 EDT, Height, 108, kg, 05/24/21 19:44:00 EDT, Dry Weight Start Date: 07/26/21 Stop Date: 01/22/22 Status: Ordered Bladder pads 120/case Bladder pads [...] Refills, Maintenance, 09/29/20 14:40:00 EST, ER Tablet, [facility], increase in dose, 167, cm, 01/14/20 9:59:00 EDT, Height Start Date: 09/29/20 Stop Date: 09/24/21 Status: Ordered busPIRone 10 mg oral tablet 10 mg, 1, tablet, By Mouth, 2 times a day, # 180 tablet, Refills 3, Tot. Refills 3, Maintenance, 07/07/20 12:31:00 EDT, Route to Pharmacy Electronically, [facility], 167, cm, 209:59:00 EDT, Height Start Date: 07/07/20 Stop Date: 07/02/21 Status: Ordered cetirizine 10 mg oral tablet 1 tablet = 10 mg, By Mouth, Daily, PRN for allergy symptoms, # 30 tablet, 2 Refills, Maintenance, 06/01/21 14:45:00 EDT, Tablet, [facility], 177, cm, 05/26/21 12:02:00 EDT, Height, 108, kg, 05/24/21 19:44:00 EDT, Dry Weight Start Date: 06/01/21 Stop Date: 08/30/21 Status: Ordered CPAP Supplies - Tubing, Filter, [...] kit, 1 Refills, Soft Stop,04/16/20 10:16:00 EDT, [facility], 167, cm, 01/14/20 9:59:00 EDT, Height Start Date: 04/16/20 Status: Ordered FLUoxetine 20 mg oral capsule 3, capsule, By Mouth, Daily, # 270 capsule, Refills 0, Tot. Refills 0, Maintenance, 06/01/21 17:20:00 EDT, Route to Pharmacy Electronically, [facility], 177, cm, 05/26/21 12:02:00 EDT, Height, 108, kg, 05/24/21 19:44:00 EDT, Dry Weight Start Date: 06/01/21 Stop Date: 08/30/21 Status: Ordered gabapentin 300 mg oral capsule [...] 06/02/21 11:36:00 EDT, Route to Pharmacy Electronically, [facility], lower dose, 177, cm, 06/02/21 11:35:00 EDT, Height, 108, kg, 05/24/21 19:44:00... Start Date: 06/02/21 Stop Date: 05/28/22 Status: Ordered Mapap Arthritis Pain 650 mg oral tablet, extended release See Instructions, TAKE 2 TABLETS BY MOUTH EVERY 8 HOURS NEEDED FOR PAIN FOR 30 DAYS, # 90 tablet, 5 Refills, Acute, [facility], 167, cm, 01/14/20 9:59:00 EDT, Height Start Date: 04/15/21 Status: Ordered nebulizer nebulizer, See Instructions, # 1 kit, Refills 0, Tot. Refills 0, Maintenance, use as directed for shortness of breath Dx: COPD, 06/02/21 11:28:00 EDT, Supply Start Date: 06/02/21 Status: Ordered OxyCONTIN 15 mg oral tablet, extended release See Instructions, TAKE 1 TABLET BY MOUTH EVERY 12 HOURS NEEDED FOR SEVERE PAIN FOR 28 DAYS, # 56tablet, 0 Refills, Maintenance, 07/08/21 8:40:00 EDT, [facility], 177, cm, 06/02/2111:35:00 EDT, Height, 108, kg, 05/24/21 19:44:00 ED... Start Date: 07/08/21 Status: Ordered Periwash Perineal cleaning solution Periwash [...] # 1 each, 5 Refills, Hard Stop 12/19/21 11:01:00 EST, 06/22/21 11:01:00 EDT, Aerosol, [facility], replaces proair, 177, cm, 06/02/21 11:35:00 EDT, Height, 108, kg, 04/30... Start Date: 06/22/21 Stop Date: 12/19/21 Status: Ordered Zofran 4 mg oral tablet 1 tablet = 4 mg, By Mouth, Every 8 hours, PRN Nausea & Vomiting, # 12 tablet, 0 Refills, Acute 06/09/22 10:43:00 EDT, 06/09/21 10:43:00 EDT, Tablet, [facility], Partial fill upon patient request if the prescription is for a schedule II... 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
--- OUTSIDE RECORDS SUMMARY | 2023-12-11 08:20 | XMS_ITS | Continuity of Care Document ---
Author Name Unknown Organization [facility] Address [address] [place] [address]- Care Team Providers Care Chocolate Coater Name Role Phone Cesario SCHULER, Demario Primary Care Physician Encounter [facility] Date(s): 11/23/21 - 12/23/21 [facility] [address] [place], [place] [address] Allergies, Adverse Reactions, Alerts Substance [...] 9 11/27/96 Given pneumococcal 23-valent vaccine 10 3/26/19 Given diphtheria-tetanus toxoids (DT) 11 03/19/09 Given Influenza Virus Vaccine (oldterm) 12 10/08/07 Give n 1Result Comment: [id number] given w/out incident 2Result Comment: [facility]: [id number] 3Result Comment: [id number] given w/out incident 4Result Comment: [08/17/2018] [facility] [id number] 5Result Comment: [08/31/2017] given w/out incident [facility]: [id number] 6Result Comment: [08/21/2014] given w/o incident...AA 7Result Comment: [07/25/2013] given w/out incident 8Admin Note: vis sheet given. 9Admin Note: historial data 10Result Comment: [id number] 11Admin Note: mass bio 12Admin Note: sanofi [...] and throat after use, # 3 each, 1 Refills,Maintenance, 10/19/21 14:37:00 EST, Aerosol, [facility], replaces Rx for symbicort not covered by her insurance, 2 puffs Inhalation 2... Start Date: 10/19/21 Stop Date: 04/17/22 Status: Ordered Advair HFA 115 mcg / 21 mcg See Instructions, INHALE 2 PUFFS BY MOUTH TWO TIMES A DAY RINSE MOUTH AFTER EVERY USE., # 36 Gm, 3 Refills, [facility], INHALE 2 PUFFS BY MOUTH TWO TIMES A DAY RINSE MOUTH AFTER EVERY USE., 177, cm, 10/19/21 10:00:00 EST, Height, 108, kg... Start Date: 12/21/21 Status: Ordered amitriptyline 100 mg oral tablet 1.5 tablet = 150 mg, By Mouth, Daily at bedtime, # 135 tablet, 3 Refills, Maintenance, 06/02/21 11:36:00 EDT, Tablet, [facility]., 177, cm, 06/02/21 11:35:00 EDT, Height, 108, kg, 05/24/21 19:44:00 EDT, Dry Weight Start Date: 06/02/21 Stop Date: 05/28/22 Status: Ordered amLODIPine 10 mg oral tablet 10 mg, 1, tablet, By Mouth, Daily, for 90 days, # 90 tablet, Refills 3, Tot. Refills 3, Hard Stop 05/28/22 11:36:00 EDT, 06/02/21 11:36:00 EDT, Route to Pharmacy Electronically, [facility], 177, cm, 06/02/21 11:35:00 EDT, Height, 108,... Start Date: 06/02/21 Stop Date: 05/28/22 Status: Ordered amLODIPine 10 mg oral tablet 10 mg, 1, tablet, By Mouth, Daily, # 90 tablet, Refills 1, Tot. Refills 1, Maintenance, 05/28/22 11:36:00 EDT, Route to Pharmacy Electronically, [facility]., 177, cm, 10/19/21 10:00:00EST, Height, 108, kg, 05/24/21 19:44:00 EDT, Dry We... Start Date: 05/28/22 Stop Date: 11/24/22 Status: Ordered atorvastatin 20 mg oral tablet 1 tablet = 20 mg, By Mouth, Daily, # 90 tablet, 1 Refills, Maintenance, 07/26/21 13:55:00 EDT, Tablet, [facility]., 177, cm, 06/02/21 11:35:00 EDT, Height, [...] Refills, Maintenance, 09/16/21 9:24:00 EST, ER Tablet, [facility]., increase in dose, 177, cm, 06/02/21 11:35:00 EDT, Height, 108, kg, 05/24/21 19:44:00 EDT, Dry Weight Start Date: 09/16/21 Stop Date: 09/11/22 Status: Ordered busPIRone 10 mg oral tablet 10 mg, 1, tablet, By Mouth, 2 times a day, # 180 tablet, Refills 3, Tot. Refills 3, Maintenance, 09/16/21 9:24:00 EST, Route to Pharmacy Electronically, [facility], 177, cm, 06/02/21 11:35:00 EDT, Height, 108, kg, 05/24/21 19:44:00 EDT... Start Date: 09/16/21 Stop Date: 09/11/22 Status: Ordered cetirizine 10 mg oral tablet 1 tablet, By Mouth, Daily, PRN NEEDED FOR ALLERGY SYMPTOMS, # 30 tablet, 5 Refills, [facility], 177, cm, 09/16/21 10:06:00 EST, Height, 108, [...] (SEVERE ALLERGY), # 2 Unknown, 1 Refills, [facility], 177, cm, 06/02/21 11:35:00 EDT, Height, 108, kg, 05/24/21 19:44:00 EDT, Dry Weight Start Date: 09/08/21 Status: Ordered FLUoxetine 20 mg oral capsule 3, capsule, By Mouth, Daily, for 90 days, # 270 capsule, Refills 0, Physician Stop, [facility] to [facility], [facility], 177, cm, 10/19/21 10:00:00 EST, Height, 108, [...] 06/02/21 11:36:00 EDT, Route to Pharmacy Electronically, [facility], lower dose, 177, cm, 06/02/21 11:35:00 EDT, Height, 108, kg, 05/24/21 19:44:00... Start Date: 06/02/21 Stop Date: 05/28/22 Status: Ordered Mapap Arthritis Pain 650 mg oral tablet, extended release 2 tablet, By Mouth, Every 8 hours, PRN NEEDED FOR PAIN FOR, for 30 days, # 90 tablet, 9 Refills,Physician Stop 10/17/22 9:00:00 EST, 12/21/21 9:00:00 EST, [facility], 177, cm, 12/21/21 8:59:00 EST, Height, 108, [...] 28 DAYS, # 56tablet, 0 Refills, Maintenance, 12/21/21 7:53:00 EST, [facility]., 177, cm, 10/19/2110:00:00 EST, Height, 108, kg, 05/24/21 19:44:00 ED... Start Date: 12/21/21 Status: Ordered Periwash Perineal cleaning solution Periwash [...] tablet, Refills 3, Tot. Refills 3, Maintenance, 12/21/21 9:01:00 EST, Route to Pharmacy Electronically, [facility], Partial fill upon patient request if the prescription is for a schedul... Start Date: 12/21/21 Stop Date: 12/16/22 Status: Ordered Ventolin HFA 108 mcg/inh inhalation aerosol with adapter 2 puffs, Inhalation, 4 times a day, PRN NEEDED FOR WHEEZING, # 18 Gm, 6 Refills, [facility], 177, cm, 12/21/21 8:59:00 EST, Height, 108, kg, 05/24/21 19:44:00 EDT, Dry Weight Start Date: 12/23/21 Status: Ordered Zofran 4 mg oral tablet 1 tablet = 4 mg, By Mouth, Every 8 hours, PRN Nausea & Vomiting, # 12 tablet, 0 Refills, Acute 06/09/22 10:43:00 EDT, 06/09/21 10:43:00 EDT, Tablet, [facility], Partial fill upon patient request if the prescription is for a schedule II... Start Date: 06/09/21 Stop Date: 06/09/22 Status: Ordered zolpidem 10 mg oral tablet 1 tablet, By Mouth, Daily at bedtime, PRN NEEDED FOR INSOMNIA, # 28 tablet, 0 Refills, Acute 01/18/22 7:52:00 EDT, 12/21/21 7:52:00 EST, [facility], refill when due, 177, cm, 10/19/21 10:00:00 EST, Height, 108, kg, 05/24/21 19:44:00... 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
--- OUTSIDE RECORDS SUMMARY | 2023-12-11 08:21 | XMS_ITS | Continuity of Care Document ---
Author Name Unknown Organization [facility] Address [address] [place] [address]- Care Team Providers Care Butt Presser Name Role Phone Demario Nassar MD Primary Care Physician Encounter [facility] [place] Date(s): 03/31/22 - 04/07/22 [facility] [address] [place], [place] [address] Attending Physician: Demario Nassar MD Allergies, Adverse Reactions, Alerts Substance Reaction Severity [...] (oldterm) 12 10/08/07 Give n 1Result Comment: [id number] given w/out incident 2Result Comment: [facility]: [id number] 3Result Comment: [id number] given w/out incident 4Result Comment: [08/17/2018] [facility] [id number] 5Result Comment: [08/31/2017] given w/out incident [facility]: [id number] 6Result Comment: [08/21/2014] given w/o incident...AA 7Result Comment: [07/25/2013] given w/out incident 8Admin Note: vis sheet given. 9Admin Note: historial data 10Result Comment: [id number] 11Admin Note: mass bio 12Admin Note: sanofi [...] EVERY USE., # 36 Gm, 3 [facility], [facility], INHALE 2 PUFFS BY MOUTH TWO TIMES A DAY RINSE MOUTH AFTER EVERY USE., 177, cm, 10/19/21 10:00:00 EST, Height, 108, kg... Start Date: 12/21/21 Status: Ordered amitriptyline 100 mg oral tablet 0.5 tablet = 50 mg, By Mouth, Daily at bedtime, # 45 tablet, 3 Refills, Maintenance, 06/02/21 11:36:00 EDT, [facility], cm, 06/02/21 11:35:00 EDT, Height, 108, kg, 05/24/21 19:44:00 EDT, Dry Weight Start Date: 06/02/21 Stop Date: 05/28/22 Status: Ordered amLODIPine 10 mg oral tablet 10 mg, 1, tablet, By Mouth, Daily, # 90 tablet, Refills 1, Tot. Refills 1, Maintenance, 05/28/22 11:36:00 EDT, Route to Pharmacy Electronically, [facility], 177, cm, 10/19/21 10:00:00EST, Height, 108, [...] Refills, Maintenance, 09/16/21 9:24:00 EST, ER Tablet, [facility], increase in dose, 177, cm, 06/02/21 11:35:00 EDT, Height, 108, kg, 05/24/21 19:44:00 EDT, Dry Weight Start Date: 09/16/21 Stop Date: 09/11/22 Status: Ordered busPIRone 10 mg oral tablet 15 mg, 1.5, tablet, By Mouth, 2 times a day, # 270 tablet, Refills 3, Tot. Refills 3, Maintenance, 09/16/21 9:24:00 EST, Route to Pharmacy Electronically, [facility], 177, cm, 06/02/21 11:35:00 EDT, Height, 108, kg, 05/24/21 19:44:00 E... Start Date: 09/16/21 Stop Date: 09/11/22 Status: Ordered cetirizine 10 mg oral tablet 1 tablet, By Mouth, Daily, PRN NEEDED FOR ALLERGY SYMPTOMS, # 30 tablet, 5 Refills, [facility], 177, cm, 09/16/21 10:06:00 EST, Height, 108, [...] (SEVERE ALLERGY), # 2 Unknown, 1 Refills, [facility], 177, cm, 06/02/21 11:35:00 EDT, Height, 108, kg, 05/24/21 19:44:00 EDT, Dry Weight Start Date: 09/08/21 Status: Ordered gabapentin 300 mg oral capsule See Instructions, TAKE 3 CAPSULES BY MOUTH IN THE MORNING, 3 CAPSULES EARLY PM AND 4 CAPSULES AT BEDTIME., # 900 capsule, Refills 3, Instructions Replace Required Details, Route to Pharmacy Electronically, [facility], 177, cm, 12/21/21 8:59:... Start Date: 01/11/22 Status: Ordered gloves, large gloves, large, See Instructions, # 50 each, Refills 11, Tot. Refills 11, Maintenance, use when handling soiled linen Dx: N39.4, 03/20/20 17:02:00 EDT, Supply Start Date: 03/20/20 Status: Ordered losartan 100 mg oral tablet 1 tablet = 100 mg, By Mouth, Daily, # 90 tablet, 4 Refills, Maintenance, 03/31/22 15:03:00 EDT, Tablet, [facility], increase in dose, 177, cm, 12/21/21 8:59:00 EST, Height, 114.4, kg,02/14/22 21:57:00 EDT, Dry Weight Start Date: 03/31/22 Stop Date: 06/24/23 Status: Ordered Mapap Arthritis Pain 650 mg oral tablet, extended release 2 tablet, By Mouth, Every 8 hours, PRN NEEDED FOR PAIN FOR, for 30 days, # 90 tablet, 9 Refills,Physician Stop 10/17/22 9:00:00 EST, 12/21/21 9:00:00 EST, [facility], 177, cm, 12/21/21 8:59:00 EST, Height, [...] 28 DAYS, # 56tablet, 0 Refills, Maintenance, 03/15/22 16:28:00 EDT, [facility], may dispense today. cancel previous Rx for 03/17 fill, 177, cm, 2... Start Date: 03/15/22 Status: Ordered Periwash Perineal cleaning solution Periwash [...] 01/11/22 15:16:00 EDT, Route to Pharmacy Electronically, [facility], Partial fill uponpatient request if the prescription is for a schedu... Start Date: 01/11/22 Stop Date: 07/10/22 Status: Ordered Ventolin HFA 108 mcg/inh inhalation aerosol with adapter 2 puffs, Inhalation, 4 times a day, PRN NEEDED FOR WHEEZING, # 18 Gm, 6 Refills, 12/28/21 11:00:00 EST, [facility], 177, cm, 12/21/21 8:59:00 EST, Height, 108, kg, 05/24/21 19:44:00 EDT, Dry Weight Start Date: 12/28/21 Status: Ordered Zofran 4 mg oral tablet 1 tablet = 4 mg, By Mouth, Every 8 hours, PRN Nausea & Vomiting, # 12 tablet, 0 Refills, Acute 06/09/22 10:43:00 EDT, 06/09/21 10:43:00 EDT, Tablet, [facility], Partial fill upon patient request if the prescription is for a schedule II... Start Date: 06/09/21 Stop Date: 06/09/22 Status: Ordered zolpidem 10 mg oral tablet 1 tablet, By Mouth, Daily at bedtime, PRN NEEDED FOR INSOMNIA, # 28 tablet, 0 Refills, Acute 04/18/22 16:53:00 EDT, 03/18/22 16:53:00 EDT, [facility], refill when due, 177, cm, 12/21/21 8:59:00 EST, Height, 114.4, kg, 02/14/22 21:57... 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) 01/18/22 Active Cholecystectomy(Confirmed) 05/1993 Active COPD - Chronic obstructive p ulmonary disease(Confirmed) Active Ex-cigarette smoker(Confirmed) Active Family history of alcoholism(Confirmed) Active Family history of substance abuse(Confirmed) Active Family history of depression(Confirmed) Active FH: CVA/stroke (grandmother)(Confirmed) Active FH: Diabetes mellitus (aunt)(Confirmed) Active FH: 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 (mom)(Confirmed) 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) Active Hx of total RIGHT knee arthroplasty(Confirmed) 12/12/13 Active Hypercholesterolemia(Confirmed) 2004 Active 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(Confirmed) 2001 Active Insomnia(Confirmed) Active Mechanical low back pain(Confirmed) Active Migraine(Confirmed) Active Depression, major, single ep isode, moderate(Confirmed) Active Diffuse myofascial pain(Confirmed) Active Obese class II(Confirmed) Active Obesity(Confirmed) 02/12/13 Active Osteoarthritis of knee(Confirmed) Active 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 Active cervical cancer(Confirmed) 2001 Active Tear of medial collateral li gament of knee joint(Confirmed) Active Tear of medial meniscus of knee(Confirmed) Active Diabetes mellitus type 2, controlled(Confirmed) Active Urine incontinence(Confirmed) Active Vital Signs Most recent to oldest [Reference Range]: 1 Weight 116.2 kg (03/31/22 2:36 PM) Blood Pressure [90-138/55-84 mm Hg] 142/ 82mm Hg *H* (03/31/22 2:36 PM) Mode of Delivery (Oxygen) Room air (03/31/22 2:36 PM) Blood pressure sites Arm, left (03/31/22 2:36 PM) Weight Obtained Via Standing scale (03/31/22 2:36 PM) Social History Social History Type Response Smoking Status 5-9 cigarettes (betw een 1/4 to 1/2 pack)/day in last 30 days; Type: Cigarettes entered on: 02/14/22 Sex
--- OUTSIDE RECORDS SUMMARY | 2023-12-11 08:21 | XMS_ITS | Continuity of Care Document ---
Author Name Unknown Organization [facility] Address [address] [place] [address]- Care Team Providers Care Proof Load Mechanic Name Role Phone Demario Nassar MD Primary Care Physician En[place] [facility] [place](s): 11/10/20 - 12/10/20 [facility] [address] [place], [place] [address] Allergies, Adverse Reactions, Alerts Substance Reaction Severity [...] (oldterm) 11 10/08/07 Give n 1Result Comment: [facility]: [id number] 2Result Comment: [id number] given w/out incident 3Result Comment: [08/17/2018] [facility] [id number] 4Result Comment: [08/31/2017] given w/out incident [facility]: [id number] 5Result Comment: [08/21/2014] given w/o incident...AA 6Result Comment: [07/25/2013] given w/out incident 7Admin Note: vis sheet given. 8Admin Note: historial data 9Result Comment: [id number] 10Admin Note: mass bio 11Admin Note: sanofi [...] each, 3 Refills,Maintenance, 04/16/20 10:16:00 EDT, Aerosol, [facility], replaces Rx for symbicort not covered by her insurance, 2 puffs Inhalation 2... Start Date: 04/16/20 Stop Date: 04/11/21 Status: Ordered amitriptyline 100 mg oral tablet 1.5 tablet = 150 mg, By Mouth, Daily at bedtime, # 135 tablet, 3 Refills, Maintenance, 04/16/20 10:16:00 EDT, Tablet, [facility]., 167, cm, 01/14/20 9:59:00 EDT, Height Start Date: 04/16/20 Stop Date: 04/11/21 Status: Ordered amLODIPine 10 mg oral tablet 10 mg, 1, tablet, By Mouth, Daily, # 90 tablet, Refills 3, Tot. Refills 3, Maintenance, 04/16/20 10:16:00 EDT, Route to Pharmacy Electronically, [facility], 167, cm, 01/14/20 9:59:00 EDT, Height [...] 3 Refills, Maintenance, 05/11/20 9:45:00 EDT, Tablet, [facility], 167, cm, 01/14/20 9:59:00 EDT, Height Start Date: 05/11/20 Stop Date: 05/06/21 Status: Ordered buPROPion 300 mg/24 hours (XL) oral tablet, extended release 1 tablet = 300 mg, By Mouth, Daily, # 90 tablet, 3 Refills, Maintenance, 09/29/20 14:40:00 EST, ER Tablet, [facility], increase in dose, 167, cm, 01/14/20 9:59:00 EDT, Height Start Date: 09/29/20 Stop Date: 09/24/21 Status: Ordered busPIRone 10 mg oral tablet 10 mg, 1, tablet, By Mouth, 2 times a day, # 180 tablet, Refills 3, Tot. Refills 3, Maintenance, 07/07/20 12:31:00 EDT, Route to Pharmacy Electronically, [facility], 167, cm, 209:59:00 EDT, Height Start Date: 07/07/20 Stop Date: 07/02/21 Status: Ordered cetirizine 10 mg oral tablet 1 tablet = 10 mg, By Mouth, Daily, PRN for allergy symptoms, # 30 tablet, 8 Refills, Maintenance, 09/01/20 17:26:00 EST, Tablet, [facility], 167, cm, 01/14/20 9:59:00 EDT, Height Start Date: 09/01/20 Stop Date: 05/29/21 Status: Ordered chlorthalidone 25 mg oral tablet 25 mg, 1, tablet, By Mouth, Daily, # 90 tablet, Refills 3, Tot. Refills 3, Maintenance, 04/16/20 10:15:00 EDT, Route to Pharmacy Electronically, [facility], replaces hydrochlorothiazide, 167, cm, 01/14/20 9:59:00 [...] kit, 1 Refills, Soft Stop,04/16/20 10:16:00 EDT, [facility], 167, cm, 01/14/20 9:59:00 EDT, Height Start Date: 04/16/20 Status: Ordered FLUoxetine 20 mg oral capsule 3, capsule, By Mouth, Daily, # 270 capsule, Refills 3, Tot. Refills 0, Maintenance, 02/21/20 15:09:00 EDT, Route to Pharmacy Electronically, [facility], 167, cm, 01/14/20 9:59:00 EDT, [...] 01/14/20 10:17:00 EDT, [facility], 167, cm, 01/14/20 9:59:00 EDT, Height Start Date: 01/14/20 Stop Date: 01/08/21 Status: Ordered Meclizine By Mouth, 3 times a day, 0 Refills, Maintenance, 12/14/18 15:25:26 EST Start Date: 12/14/18 Status: Ordered nystatin topical 809172 u/gm powder See Instructions, APPLY TOPICALLY TO AFFECTED AREA TWO TIMES A DAY FOR 14 DAYS, # 30 Gm, 0 Refills,Acute, [facility], [facility], APPLY TOPICALLY TO AFFECTED AREA [...] # 56 tablet, 0 Refills, Hard Stop 12/22/20 12:36:00 EST, 11/24/20 12:36:00 EST, ER Tablet, [facility]... Start Date: 11/24/20 Stop Date: 12/22/20 Status: Ordered Periwash Perineal cleaning solution Periwash [...] Refills, Soft Stop, 04/06/21 11:36:00 EDT, [facility]erosol, [facility]air, 167, cm, 01/14/20 9:59:00 EDT, Height Start Date: 04/06/21 Stop Date: 10/03/21 Status: Ordered Ventolin HFA 108 mcg/inh inhalation aerosol with adapter 2 puffs, Inhalation, 4 times a day, PRN for wheezing, for 30 days, # 1 each, 5 Refills, Hard Stop 04/06/21 11:36:00 EDT, 10/08/20 11:36:00 EST, Aerosol, [facility]., replaces proair, 167, cm, 01/14/20 9:59:00 EDT, Height Start Date: 10/08/20 Stop Date: 04/06/21 Status: Ordered zolpidem 10 mg oral tablet 1 tablet = 10 mg, By Mouth, Daily at bedtime, PRN as needed for insomnia, # 28 tablet, 0 Refills, Soft Stop, 11/12/20 8:02:00 EST, [facility]., 167, cm, 01/14/20 9:59:00 EDT, Height Start Date: 11/12/20 Stop Date: 12/10/20 Status: Ordered Problem List Condition Effective Dates [...] mellitus (aunt)(Confirmed) Active FH: 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 (mom)(Confirmed) 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
--- OUTSIDE RECORDS SUMMARY | 2023-12-11 08:21 | XMS_ITS | Continuity of Care Document ---
Author Name Unknown Organization [facility] Address [address] [place] [address]- Care Team Providers Care Route Contractor Name Role Phone Cesario SCHULER, Demario Primary Care Physician Encounter [facility] [place] Date(s): 06/27/23 - 07/27/23 [facility] [address] [place], [place] [address] Allergies, Adverse [...] Reason: Other : not documented 2Result Comment: [id number] given w/out incident 3Result Comment: [id number] given w/out incident 4Result Comment: [facility]: [id number] 5Result Comment: [id number] given w/out incident 6Result Comment: [08/17/2018] [facility] [id number] 7Result Comment: [08/31/2017] given w/out incident [facility]: [id number] 8Result Comment: [08/21/2014] given w/o incident...AA 9Result Comment: [07/25/2013] given w/out incident 10Admin Note: vis sheet given. 11Admin Note: historial data 12Result Comment: [id number] 13Admin Note: mass bio 14Admin Note: sanofi [...] USE., # 36 Gm, 1 Refills, Maintenance, 01/06/23 15:18:00 EST, [facility], 90, INHALE 2 PUFFS BY MOUTH TWO TIMES A DAY RINSE MOUTH AFTER EVERYUSE., 167, cm, 12/05/22 10:53:00 EST, Height, 114.4... Start Date: 01/06/23 Status: Ordered All Day Allergy 10 mg oral tablet 1 tablet, By Mouth, Daily, PRN NEEDED FOR ALLERGY SYMPTOMS, # 30 tablet, 5 Refills, Maintenance,06/20/23 7:39:00 EDT, [facility], [facility], [facility], 05/29/23 18:21:00 EDT, Height, 114.4, kg, 02/14/22 21:57:00 EDT, Dry Weight Start Date: 06/20/23 Status: Ordered amLODIPine 10 mg oral tablet 10 mg, 1, tablet, By Mouth, Daily, # 90 tablet, Refills 3, Tot. Refills 3, Maintenance, 11/25/22 15:31:00 EST, Route to Pharmacy Electronically, [facility], 177, cm, 12/21/21 8:59:00 EST, Height, 114.4, kg, 02/14/22 21:57:00 EDT, Dry W... Start Date: 11/25/22 Stop Date: 11/20/23 Status: Ordered atorvastatin 40 mg oral tablet 1 tablet, By Mouth, Daily, # 90 tablet, 1 Refills, Maintenance, 02/03/23 16:11:00 EDT, [facility], 167, cm, 12/05/22 10:53:00 EST, Height, 114.4, [...] 05/29/23 18:09:00 EDT, Route to Pharmacy Electronically, [facility], replaces spironolactone, 167, cm, 05/29/23 17:54:00 [...] Unknown, 1 Refills, Maintenance, 05/12/23 12:41:00 EDT, [facility], 167, cm, 12/05/22 10:53:00 EST, Height, 114.4, kg, 02/14/22 21:57:00 EDT,... Start Date: 05/12/23 Status: Ordered gabapentin 300 mg oral capsule See Instructions, TAKE 3 CAPSULES BY MOUTH IN THE MORNING, 3 CAPSULES EARLY PM AND 4 CAPSULES AT BEDTIME., # 900 capsule, Refills 3, Maintenance, 12/23/22 13:41:00 EST, Instructions Replace Required Details, [facility] to [facility], [facility] Start Date: 12/23/22 Status: Ordered gloves, large gloves, large, See Instructions, # 50 each, Refills 11, Tot. Refills 11, Maintenance, use when handling soiled linen Dx: N39.4, 03/20/20 17:02:00 EDT, Supply Start Date: 03/20/20 Status: Ordered LORazepam 0.5 mg oral tablet 1 tablet = 0.5 mg, By Mouth, 2 times a day, PRN as needed for anxiety, prior to dental procedure, #2 tablet, 0 Refills, Acute 08/19/23 7:39:00 EDT, 07/20/23 7:39:00 EDT, Tablet, [facility], Partial fill upon patient request if the pre... Start Date: 07/20/23 Stop Date: 08/19/23 Status: Ordered losartan 100 mg oral tablet 1 tablet = 100 mg, By Mouth, Daily, # 90 tablet, 4 Refills, Maintenance, 05/29/23 18:09:00 EDT, Tablet, [facility]., increase in dose, 167, cm, 05/29/23 17:54:00 EDT, Height, 114.4, kg, 02/14/22 21:57:00 EDT, Dry Weight Start Date: 05/29/23 Stop Date: 08/21/24 Status: Ordered Mapap Arthritis Pain 650 mg oral tablet, extended release 2 tablet, By Mouth, Every 8 hours, PRN NEEDED FOR PAIN, # 90 tablet, 11 Refills, Maintenance, 08/12/22 10:25:00 EDT, [facility], 177, cm, 12/21/21 8:59:00 EST, Height, 114.4, kg, 02/14/22 21:57:00 EDT, Dry Weight Start Date: 08/12/22 Status: Ordered nebulizer nebulizer, See Instructions, # 1 kit, Refills 0, Tot. Refills 0, Maintenance, use as directed for shortness of breath Dx: COPD, 06/02/21 11:28:00 EDT, Supply Start Date: 06/02/21 Status: Ordered OxyCONTIN 15 mg oral tablet, extended release 1 tablet = 15 mg, By Mouth, Every 12 hours, PRN Pain , Severe, # 56 tablet, 0 Refills, Maintenance,07/11/23 14:09:00 EDT, [facility]., resent, 167, cm, 05/29/23 18:21:00 EDT, Height, 114.4, kg, 02/14/22 21:57:00 EDT, Dry Weight Start Date: 07/11/23 Stop Date: 08/08/23 Status: Ordered Protonix 40 mg oral delayed release tablet 1 tablet = 40 mg, By Mouth, Daily, # 90 tablet, 3 Refills, Maintenance, 10/21/22 12:33:00 EST, [facility] Tablet, 177, cm, 12/21/21 8:59:00 EST, Height, 114.4, kg, 02/14/22 21:57:00 EDT, Dry Weight Start Date: 10/21/22 Stop Date: 10/16/23 Status: Ordered QUEtiapine 25 mg oral tablet [...] Gm, 5 Refills, Maintenance, 05/03/23 18:41:00 EDT, [facility], 167, cm, 12/05/22 10:53:00 EST, Height, 114.4, [...] Confirmed Active FH: 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 (mom) Confirmed Active nursing home current use of opiate analgesic Confirmed Active [...] Team Personnel Name: Ermelinda Rice RN Position: [facility] RN Member Role: Primary Care Nurse Name: Tri Sebastian RN Position: [facility] RN Member Role: Primary Care Nurse Name: Demario Nassar MD Position: [facility] Physician - Primary Care Member Role: PCP Address: Address: [address] [place] [address] Adult [place] [address]- Care Team Related Persons Name: EPIFANIO STYLES Address: [address] [place] [id number] Name: DEUCE SEE
--- OUTSIDE RECORDS SUMMARY | 2023-12-11 08:21 | XMS_ITS | Continuity of Care Document ---
Author Name Unknown Organization [facility] Address [address] [place] [address]- Care Team Providers Care Leadership Development Manager Name Role Phone Demario Nassar MD Primary Care Physician Encounter [facility] Date(s): 06/02/21 - 06/09/21 [facility] [address] [place], [place] [address] Attending Physician: Demario Nassar MD Allergies, Adverse [...] (oldterm) 11 10/08/07 Give n 1Result Comment: [facility]: 88114-874-57 2Result Comment: [id number] given w/out incident 3Result Comment: [08/17/2018] [facility] [id number] 4Result Comment: [08/31/2017] given w/out incident [facility]: [id number] 5Result Comment: [08/21/2014] given w/o incident...AA 6Result Comment: [07/25/2013] given w/out incident 7Admin Note: vis sheet given. 8Admin Note: historial data 9Result Comment: [id number] 10Admin Note: mass bio 11Admin Note: sanofi [...] each, 3 Refills,Maintenance, 05/28/21 18:23:00 EDT, Aerosol, [facility]/pharmacy #[id number], replaces Rx for symbicort not covered by her insurance, 2 puffs Inhalation 2 times a... Start Date: 05/28/21 Stop Date: 05/23/22 Status: Ordered albuterol 0.083% inhalation solution 3 mL = 2.5 mg, Inhalation, Every 6 hours, PRN for wheezing, Dx: COPD J44.9, # 60 each, 2 Refills, Maintenance, 06/02/21 11:29:00 EDT, Solution, [facility], Partial fill upon patient request if the prescription is for a schedule II opio... Start Date: 06/02/21 Status: Ordered amitriptyline 100 mg oral tablet 1.5 tablet = 150 mg, By Mouth, Daily at bedtime, # 135 tablet, 3 Refills, Maintenance, 06/02/21 11:36:00 EDT, Tablet, [facility], 177, cm, 06/02/21 11:35:00 EDT, Height, 108, kg, 05/24/21 19:44:00 EDT, Dry Weight Start Date: 06/02/21 Stop Date: 05/28/22 Status: Ordered amLODIPine 10 mg oral tablet 10 mg, 1, tablet, By Mouth, Daily, # 90 tablet, Refills 3, Tot. Refills 3, Maintenance, 06/02/21 11:36:00 EDT, Route to Pharmacy Electronically, [facility], 177, cm, 06/02/21 11:35:00EDT, Height, 108, kg, 05/24/21 19:44:00 EDT, Dry We... Start Date: 06/02/21 Stop Date: 05/28/22 Status: Ordered atorvastatin 20 mg oral tablet 1 tablet = 20 mg, By Mouth, Daily, # 90 tablet, 3 Refills, Maintenance, 05/11/20 9:45:00 EDT, Tablet, [facility], 167, cm, 01/14/20 9:59:00 EDT, Height Start Date: 05/11/20 Stop Date: 05/06/21 Status: Ordered Bladder pads 120/case Bladder pads [...] Refills, Maintenance, 09/29/20 14:40:00 EST, ER Tablet, [facility], increase in dose, 167, cm, 01/14/20 9:59:00 EDT, Height Start Date: 09/29/20 Stop Date: 09/24/21 Status: Ordered busPIRone 10 mg oral tablet 10 mg, 1, tablet, By Mouth, 2 times a day, # 180 tablet, Refills 3, Tot. Refills 3, Maintenance, 07/07/20 12:31:00 EDT, Route to Pharmacy Electronically, [facility], 167, cm, 209:59:00 EDT, Height Start Date: 07/07/20 Stop Date: 07/02/21 Status: Ordered cetirizine 10 mg oral tablet 1 tablet = 10 mg, By Mouth, Daily, PRN for allergy symptoms, # 30 tablet, 2 Refills, Maintenance, 06/01/21 14:45:00 EDT, Tablet, [facility], 177, cm, 05/26/21 12:02:00 EDT, Height, [...] kit, 1 Refills, Soft Stop,04/16/20 10:16:00 EDT, [facility], 167, cm, 01/14/20 9:59:00 EDT, Height Start Date: 04/16/20 Status: Ordered FLUoxetine 20 mg oral capsule 3, capsule, By Mouth, Daily, # 270 capsule, Refills 0, Tot. Refills 0, Maintenance, 06/01/21 17:20:00 EDT, Route to Pharmacy Electronically, [facility], 177, cm, 05/26/21 12:02:00 EDT, Height, 108, [...] 06/02/21 11:36:00 EDT, Route to Pharmacy Electronically, [facility], lower dose, 177, cm, 06/02/21 11:35:00 EDT, Height, 108, kg, 05/24/21 19:44:00... Start Date: 06/02/21 Stop Date: 05/28/22 Status: Ordered Mapap Arthritis Pain 650 mg oral tablet, extended release See Instructions, TAKE 2 TABLETS BY MOUTH EVERY 8 HOURS NEEDED FOR PAIN FOR 30 DAYS, # 90 tablet, 5 Refills, Acute, [facility], 167, cm, 01/14/20 9:59:00 EDT, Height Start [...] 28 DAYS, # 56tablet, 0 Refills, Maintenance, 05/12/21 14:36:00 EDT, [facility], 05/13/21, 167, cm, 01/14/20 9:59:00 EDT, Height Start Date: 05/12/21 Status: Ordered Periwash Perineal cleaning solution Periwash [...] # 1 each, 5 Refills, Hard Stop 11/24/21 18:17:00 EST, 05/28/21 18:17:00 EDT, Aerosol, [facility]/pharmacy #[id number], replaces proair, 177, cm, 05/26/21 12:02:00 EDT, Height, 108, kg, 05/24/21 19:... Start Date: 05/28/21 Stop Date: 11/24/21 Status: Ordered Zofran 4 mg oral tablet 1 tablet = 4 mg, By Mouth, Every 8 hours, PRN Nausea & Vomiting, # 12 tablet, 0 Refills, Acute 06/09/22 10:43:00 EDT, 06/09/21 10:43:00 EDT, Tablet, [facility], Partial fill upon patient request if the prescription is for a schedule II... 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 Most recent to oldest [Reference Range]: 1 2 Height 177 cm (06/02/21 11:35 AM) 177 cm (06/02/21 11:17 AM) Weight 101.8 kg (06/02/21 11:17 AM) Oxygen Saturation [94-100 %] 88 % *L* (06/02/21 11:17 AM) Body Mass Index [18.5-24.99] 32.49 *>HHI* (06/02/21 11:17 AM) Blood Pressure [90-138/55-84 mm Hg] 122/ 74mm Hg (06/02/21 11:35 AM) 138/82mm Hg (06/02/21 11:17 AM) Temperature [96.8-100.4 DegF] 97.9 DegF (06/02/21 11:17 AM) Mode of Delivery (Oxygen) Room air (06/02/21 11:17 AM) Blood pressure sites Arm, left (06/02/21 11:17 AM) Temperature Route Oral (06/02/21 11:17 AM) Social History Social History Type Response Smoking Status Former smoker entered on: 12/04/14 Sex
--- OUTSIDE RECORDS SUMMARY | 2023-12-11 08:21 | XMS_ITS | Continuity of Care Document ---
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 Role Phone Cesario SCHULER, Demario Primary Care Physician [place] [facility] [place]): 08/27/21 - 09/26/21 [facility] [address], [place] [address] Allergies, Adverse Reactions, Alerts Substance Reaction [...] (oldterm) 12 10/08/07 Give n 1Result Comment: [id number] given w/out incident 2Result Comment: [facility]: [id number] 3Result Comment: [id number] given w/out incident 4Result Comment: [08/17/2018] [facility] [id number] 5Result Comment: [08/31/2017] given w/out incident [facility]: [id number] 6Result Comment: [08/21/2014] given w/o incident...AA 7Result Comment: [07/25/2013] given w/out incident 8Admin Note: vis sheet given. 9Admin Note: historial data 10Result Comment: [id number] 11Admin Note: mass bio 12Admin Note: sanofi [...] each, 3 Refills,Maintenance, 05/28/21 18:23:00 EDT, Aerosol, [facility]/pharmacy #[id number], replaces Rx for symbicort not covered by her insurance, 2 puffs Inhalation 2 times a... Start Date: 05/28/21 Stop Date: 05/23/22 Status: Ordered albuterol 0.083% inhalation solution 3 mL = 2.5 mg, Inhalation, Every 6 hours, PRN for wheezing, Dx: COPD J44.9, # 60 each, 2 Refills, Maintenance, 06/02/21 11:29:00 EDT, [facility] upon patient request if the prescription is for a schedule II opio... Start Date: 06/02/21 Status: Ordered amitriptyline 100 mg oral tablet 1.5 tablet = 150 mg, By Mouth, Daily at bedtime, # 135 tablet, 3 Refills, Maintenance, 06/02/21 11:36:00 EDT, Tablet, [facility], 177, cm, 06/02/21 11:35:00 EDT, Height, 108, kg, 05/24/21 19:44:00 EDT, Dry Weight Start Date: 06/02/21 Stop Date: 05/28/22 Status: Ordered amLODIPine 10 mg oral tablet 10 mg, 1, tablet, By Mouth, Daily, # 90 tablet, Refills 3, Tot. Refills 3, Maintenance, 06/02/21 11:36:00 EDT, Route to Pharmacy Electronically, [facility], 177, cm, 06/02/21 11:35:00EDT, Height, 108, kg, 05/24/21 19:44:00 EDT, Dry We... Start Date: 06/02/21 Stop Date: 05/28/22 Status: Ordered atorvastatin 20 mg oral tablet 1 tablet = 20 mg, By Mouth, Daily, # 90 tablet, 1 Refills, Maintenance, 07/26/21 13:55:00 EDT, Tablet, [facility], 177, cm, 06/02/21 11:35:00 EDT, Height, 108, [...] Refills, Maintenance, 09/16/21 9:24:00 EST, ER Tablet, [facility], increase in dose, 177, cm, 06/02/21 11:35:00 EDT, Height, 108, kg, 05/24/21 19:44:00 EDT, Dry Weight Start Date: 09/16/21 Stop Date: 09/11/22 Status: Ordered busPIRone 10 mg oral tablet 10 mg, 1, tablet, By Mouth, 2 times a day, # 180 tablet, Refills 3, Tot. Refills 3, Maintenance, 09/16/21 9:24:00 EST, Route to Pharmacy Electronically, [facility], 177, cm, 06/02/21 11:35:00 EDT, Height, 108, kg, 05/24/21 19:44:00 EDT... Start Date: 09/16/21 Stop Date: 09/11/22 Status: Ordered cetirizine 10 mg oral tablet 1 tablet = 10 mg, By Mouth, Daily, PRN for allergy symptoms, # 30 tablet, 2 Refills, Maintenance, 06/01/21 14:45:00 EDT, Tablet, [facility], 177, cm, 05/26/21 12:02:00 EDT, Height, 108, [...] (SEVERE ALLERGY), # 2 Unknown, 1 Refills, [facility], 177, cm, 06/02/21 11:35:00 EDT, Height, 108, kg, 05/24/21 19:44:00 EDT, Dry Weight Start Date: 09/08/21 Status: Ordered FLUoxetine 20 mg oral capsule 3, capsule, By Mouth, Daily, for 90 days, # 270 capsule, Refills 0, Physician Stop, [facility], 177, cm, 06/02/21 11:35:00 EDT, Height, 108, kg, 05/24/21 19:44:00 EDT, Dry Weight Start Date: 09/08/21 Stop Date: 12/07/21 Status: Ordered gabapentin 300 mg oral capsule [...] 06/02/21 11:36:00 EDT, Route to Pharmacy Electronically, [facility], lower dose, 177, cm, 06/02/21 11:35:00 EDT, Height, 108, kg, 05/24/21 19:44:00... Start Date: 06/02/21 Stop Date: 05/28/22 Status: Ordered Mapap Arthritis Pain 650 mg oral tablet, extended release See Instructions, TAKE 2 TABLETS BY MOUTH EVERY 8 HOURS NEEDED FOR PAIN FOR 30 DAYS, # 90 tablet, 5 Refills, Acute, [facility], 167, cm, 01/14/20 9:59:00 EDT, Height Start [...] 28 DAYS, # 56tablet, 0 Refills, Maintenance, 09/01/21 9:49:00 EDT, [facility], Pt requests an early refill for travel, 177, cm, 06/02/21 11:35:00 ED... Start Date: 09/01/21 Status: Ordered Periwash Perineal cleaning solution Periwash [...] By Mouth, 2 times a day, # 60 tablet, Refills 4, Tot. Refills 4, Maintenance, 09/16/21 9:30:00 EST, Route to Pharmacy Electronically, [facility], Partial fill upon patient request if the prescription is for a schedule... Start Date: 09/16/21 Stop Date: 02/13/22 Status: Ordered Ventolin HFA 108 mcg/inh inhalation aerosol with adapter 2 puffs, Inhalation, 4 times a day, PRN for wheezing, for 30 days, # 1 each, 5 Refills, Hard Stop 12/19/21 11:01:00 EST, 06/22/21 11:01:00 EDT, Aerosol, [facility], replaces proair, 177, cm, 06/02/21 11:35:00 EDT, Height, 108, kg, 04/30... Start Date: 06/22/21 Stop Date: 12/19/21 Status: Ordered Zofran 4 mg oral tablet 1 tablet = 4 mg, By Mouth, Every 8 hours, PRN Nausea & Vomiting, # 12 tablet, 0 Refills, Acute 06/09/22 10:43:00 EDT, 06/09/21 10:43:00 EDT, Tablet, [facility]., Partial fill upon patient request if the prescription is for a schedule II... Start Date: 06/09/21 Stop Date: 06/09/22 Status: Ordered zolpidem 10 mg oral tablet 1 tablet, By Mouth, Daily at bedtime, PRN NEEDED FOR INSOMNIA, # 28 tablet, 0 Refills, Acute 09/29/21 9:50:00 EST, 09/01/21 9:50:00 EDT, [facility]., refill when due, 177, cm, 06/02/21 11:35:00 EDT, Height, 108, kg, 05/24/21 19:44:00... 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
--- OUTSIDE RECORDS SUMMARY | 2023-12-11 08:21 | XMS_ITS | Continuity of Care Document ---
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 Name Role Phone Demario Nassar MD Primary Care Physician Encounter [facility] Date(s): 10/27/20 - 11/26/20 [facility] [address] [place], [place] [address] Allergies, Adverse Reactions, Alerts Substance Reaction [...] influenza virus vaccine, inactivated 6 07/25/13 Gi ycn influenza virus vaccine, inactivated 7 07/06/12 Gi cyn influenza virus vaccine, inactivated 07/06/11 Give n Typhoid Vaccine, Inactivated 11/19/19 Given Hepatitis A Adult Vaccine 11/19/19 Given tetanus-diphtheria toxoids (Td) 04/23/19 Given tetanus-diphtheria toxoids (Td) 8 11/27/96 Given pneumococcal 23-valent vaccine 9 01/22/19 Given diphtheria-tetanus toxoids (DT) 10 03/19/09 Given Influenza Virus Vaccine (oldterm) 11 10/08/07 Give n 1Result Comment: [facility]: [id number] 2Result Comment: [id number] given w/out incident 3Result Comment: [08/17/2018] [facility] [id number] 4Result Comment: [08/31/2017] given w/out incident [facility]: [id number] 5Result Comment: [08/21/2014] given w/o incident...AA 6Result Comment: [07/25/2013] given w/out incident 7Admin Note: vis sheet given. 8Admin Note: historial data 9Result Comment: [id number] 10Admin Note: mass bio 11Admin Note: sanofi [...] each, 3 Refills,Maintenance, 04/16/20 10:16:00 EDT, Aerosol, [facility], replaces Rx for symbicort not covered by her insurance, 2 puffs Inhalation 2... Start Date: 04/16/20 Stop Date: 04/11/21 Status: Ordered amitriptyline 100 mg oral tablet 1.5 tablet = 150 mg, By Mouth, Daily at bedtime, # 135 tablet, 3 Refills, Maintenance, 04/16/20 10:16:00 EDT, Tablet, [facility] 167, cm, 01/14/20 9:59:00 EDT, Height Start Date: 04/16/20 Stop Date: 04/11/21 Status: Ordered amLODIPine 10 mg oral tablet 10 mg, 1, tablet, By Mouth, Daily, # 90 tablet, Refills 3, Tot. Refills 3, Maintenance, 04/16/20 10:16:00 EDT, Route to Pharmacy Electronically, [facility], 167, cm, 01/14/20 9:59:00 EDT, [...] 3 Refills, Maintenance, 05/11/20 9:45:00 EDT, Tablet, [facility], 167, cm, 01/14/20 9:59:00 EDT, Height Start Date: 05/11/20 Stop Date: 05/06/21 Status: Ordered buPROPion 300 mg/24 hours (XL) oral tablet, extended release 1 tablet = 300 mg, By Mouth, Daily, # 90 tablet, 3 Refills, Maintenance, 09/29/20 14:40:00 EST, ER Tablet, [facility], increase in dose, 167, cm, 01/14/20 9:59:00 EDT, Height Start Date: 09/29/20 Stop Date: 09/24/21 Status: Ordered busPIRone 10 mg oral tablet 10 mg, 1, tablet, By Mouth, 2 times a day, # 180 tablet, Refills 3, Tot. Refills 3, Maintenance, 07/07/20 12:31:00 EDT, Route to Pharmacy Electronically, [facility], 167, cm, 209:59:00 EDT, Height Start Date: 07/07/20 Stop Date: 07/02/21 Status: Ordered cetirizine 10 mg oral tablet 1 tablet = 10 mg, By Mouth, Daily, PRN for allergy symptoms, # 30 tablet, 8 Refills, Maintenance, 09/01/20 17:26:00 EST, Tablet, [facility], 167, cm, 01/14/20 9:59:00 EDT, Height Start Date: 09/01/20 Stop Date: 05/29/21 Status: Ordered chlorthalidone 25 mg oral tablet 25 mg, 1, tablet, By Mouth, Daily, # 90 tablet, Refills 3, Tot. Refills 3, Maintenance, 04/16/20 10:15:00 EDT, Route to Pharmacy Electronically, [facility], replaces hydrochlorothiazide, 167, cm, 01/14/20 9:59:00 [...] kit, 1 Refills, Soft Stop,04/16/20 10:16:00 EDT, [facility], 167, cm, 01/14/20 9:59:00 EDT, Height Start Date: 04/16/20 Status: Ordered FLUoxetine 20 mg oral capsule 3, capsule, By Mouth, Daily, # 270 capsule, Refills 3, Tot. Refills 0, Maintenance, 02/21/20 15:09:00 EDT, Route to Pharmacy Electronically, [facility], 167, cm, 01/14/20 9:59:00 EDT, Height [...] 01/14/20 10:17:00 EDT, [facility], [facility] dose, 167, cm, 01/14/20 9:59:00 EDT, Height Start Date: 01/14/20 Stop Date: 01/08/21 Status: Ordered Meclizine By Mouth, 3 times a day, 0 Refills, Maintenance, 12/14/18 15:25:26 EST Start Date: 12/14/18 Status: Ordered nystatin topical [id number] u/gm powder See Instructions, APPLY TOPICALLY TO AFFECTED AREA TWO TIMES A DAY FOR 14 DAYS, # 30 Gm, 0 Refills,[facility], [facility], APPLY TOPICALLY TO AFFECTED [...] 12:36:00 EST, 11/24/20 12:36:00 EST, ER Tablet, [facility]... Start Date: 11/24/20 Stop [...] Refills, Soft Stop, 04/06/21 11:36:00 EDT, [facility]erosol, [facility]air, 167, cm, 01/14/20 9:59:00 EDT, Height Start Date: 04/06/21 Stop Date: 10/03/21 Status: Ordered Ventolin HFA 108 mcg/inh inhalation aerosol with adapter 2 puffs, Inhalation, 4 times a day, PRN for wheezing, for 30 days, # 1 each, 5 Refills, Hard Stop 04/06/21 11:36:00 EDT, 10/08/20 11:36:00 EST, Aerosol, [facility]., replaces proair, 167, cm, 01/14/20 9:59:00 EDT, Height Start Date: 10/08/20 Stop Date: 04/06/21 Status: Ordered zolpidem 10 mg oral tablet 1 tablet = 10 mg, By Mouth, Daily at bedtime, PRN as needed for insomnia, # 28 tablet, 0 Refills, Soft Stop, 11/12/20 8:02:00 EST, [facility]., 167, cm, 01/14/20 9:59:00 EDT, Height [...] mellitus (aunt)(Confirmed) Active FH: 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 (mom)(Confirmed) 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
--- OUTSIDE RECORDS SUMMARY | 2023-12-11 08:21 | XMS_ITS | Continuity of Care Document ---
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: [id number] 5Result Comment: [id number] given w/out incident 6Result Comment: [08/17/2018] [facility] [id number] 7Result Comment: [08/31/2017] given w/out incident [facility]: [id number] 8Result Comment: [08/21/2014] given w/o incident...AA 9Result Comment: [07/25/2013] given w/out incident 10Admin Note: vis sheet given. 11Admin Note: historial data 12Result Comment: [id number] 13Admin Note: mass bio 14Admin Note: sanofi [...] Gm, 1 Refills, Maintenance, 01/06/23 15:18:00 EST, [facility], 90, INHALE 2 PUFFS BY MOUTH TWO TIMES A DAY RINSE MOUTH AFTER EVERYUSE., 167, cm, 12/05/22 10:53:00 EST, Height, 114.4... Start Date: 01/06/23 Status: Ordered All Day Allergy 10 mg oral tablet 1 tablet, By Mouth, Daily, PRN NEEDED FOR ALLERGY SYMPTOMS, # 30 tablet, 6 Refills, Maintenance,11/08/22 15:08:00 EST, [facility], 177, cm, 12/21/21 8:59:00 EST, Height, 114.4, kg, 02/14/22 21:57:00 EDT, Dry Weight Start Date: 11/08/22 Status: Ordered amLODIPine 10 mg oral tablet 10 mg, 1, tablet, By Mouth, Daily, # 90 tablet, Refills 3, Tot. Refills 3, Maintenance, 11/25/22 15:31:00 EST, Route to Pharmacy Electronically, [facility], 177, cm, 12/21/21 8:59:00 EST, Height, 114.4, kg, 02/14/22 21:57:00 EDT, Dry W... Start Date: 11/25/22 Stop Date: 11/20/23 Status: Ordered atorvastatin 40 mg oral tablet 1 tablet, By Mouth, Daily, # 90 tablet, 1 Refills, Maintenance, 02/03/23 16:11:00 EDT, [facility], 167, cm, 12/05/22 10:53:00 EST, Height, [...] tablet, 3 Refills, Maintenance, 10/21/22 12:33:00 EST, ER Tablet, [facility], increase in dose, 177, cm, 12/21/21 8:59:00 EST, Height, 114.4, kg, 02/14/22 21:57:00 EDT, Dry Weight Start Date: 10/21/22 Stop Date: 10/16/23 Status: Ordered busPIRone 7.5 mg oral tablet [...] tablet, Refills 3, Tot. Refills 3, Maintenance, 08/02/22 15:37:00 EDT, Route to Pharmacy Electronically, [facility], replaces spironolactone, 177, cm, 12/21/21 8:59:00 EST, Height, 114.4, kg, ... Start Date: 08/02/22 Stop Date: 07/28/23 Status: Ordered CPAP Supplies - Tubing, Filter, [...] (SEVERE ALLERGY), # 2 Unknown, 1 Refills, [facility], 177, cm, 06/02/21 11:35:00 EDT, Height, 108, kg, 05/24/21 19:44:00 EDT, Dry Weight Start Date: 09/08/21 Status: Ordered gabapentin 300 mg oral capsule See Instructions, TAKE 3 CAPSULES BY MOUTH IN THE MORNING, 3 CAPSULES EARLY PM AND 4 CAPSULES AT BEDTIME., # 900 capsule, Refills 3, Maintenance, 12/23/22 13:41:00 EST, Instructions Replace Required Details, [facility], [facility] Start Date: 12/23/22 Status: Ordered gloves, large gloves, large, See Instructions, # 50 each, Refills 11, Tot. Refills 11, Maintenance, use when handling soiled linen Dx: N39.4, 03/20/20 17:02:00 EDT, Supply Start Date: 03/20/20 Status: Ordered losartan 100 mg oral tablet 1 tablet = 100 mg, By Mouth, Daily, # 90 tablet, 4 Refills, Maintenance, 03/31/22 15:03:00 EDT, Tablet, [facility], increase in dose, 177, cm, 12/21/21 8:59:00 EST, Height, 114.4, kg,02/14/22 21:57:00 EDT, Dry Weight Start Date: 03/31/22 Stop Date: 06/24/23 Status: Ordered Mapap Arthritis Pain 650 mg oral tablet, extended release 2 tablet, By Mouth, Every 8 hours, PRN NEEDED FOR PAIN, # 90 tablet, 11 Refills, Maintenance, 08/12/22 10:25:00 EDT, [facility], 177, cm, 12/21/21 8:59:00 EST, Height, 114.4, [...] , Severe, # 56 tablet, 0 Refills, Maintenance,04/11/23 10:59:00 EDT, [facility] resent, 167, cm, 12/05/22 10:53:00 EST, Height, 114.4, kg, 02/14/22 21:57:00 EDT, Dry Weight Start Date: 04/11/23 Stop Date: 05/09/23 Status: Ordered Protonix 40 mg oral delayed release tablet 1 tablet = 40 mg, By Mouth, Daily, # 90 tablet, 3 Refills, Maintenance, 10/21/22 12:33:00 EST, [facility] Tablet, 177, cm, 12/21/21 8:59:00 EST, Height, 114.4, kg, 02/14/22 21:57:00 EDT, Dry Weight Start Date: 10/21/22 Stop Date: 10/16/23 Status: Ordered Ventolin HFA 108 mcg/inh inhalation aerosol with adapter 2 puffs, Inhalation, 4 times a day, PRN NEEDED FOR WHEEZING, # 18 Gm, 5 Refills, Maintenance, 05/03/23 18:41:00 EDT, [facility], 167, cm, 12/05/22 10:53:00 EST, Height, [...] Confirmed Active FH: 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 (mom) Confirmed Active USP current use of opiate analgesic Confirmed Active Hx of total RIGHT knee arthroplasty Confirmed 12/12/13 Active Hypercholesterolemia Confirmed 2004 Active 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 Confirmed 2001 Active Insomnia Confirmed Active Mechanical low back pain Confirmed Active Migraine Confirmed Active Depression, major, single episode, moderate Confirmed Active Diffuse myofascial pain Confirmed Active Osteoarthritis of knee Confirmed Active Osteoarthritis of lumbar spine Confirmed 09/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 Active Severe obesity (BMI 35.0-35.9 with comorbidity) Confirmed Active cervical cancer Confirmed 2001 Active [...] Team Personnel Name: Ermelinda Rice RN Position: [facility] RN Member Role: Primary Care Nurse Name: Tri Sebastian RN Position: [facility] RN Member Role: Primary Care Nurse Name: Demario Nassar MD Position: [facility] Physician - Primary Care Member Role: PCP Address: Address: [address] [place] [address] Adult & Pediatric Medicine [address] Care Team Related Persons Name: EPIFANIO STYLES Address: [address] [address] Name: DEUCE SEE
--- OUTSIDE RECORDS SUMMARY | 2023-12-11 08:21 | XMS_ITS | Continuity of Care Document ---
Author Name Unknown Organization 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 [address] [place], [place] [address] Attending Physician: Not on Staff, Attending MD Referring Physician: Demario Nassar MD Allergies, Adverse Reactions, [...] (oldterm) 11 10/08/07 Give n 1Result Comment: [facility]: [id number] 2Result Comment: [id number] given w/out incident 3Result Comment: [08/17/2018] [facility] [id number] 4Result Comment: [08/31/2017] given w/out incident [facility] [place]: [id number] 5Result Comment: [08/21/2014] given w/o incident...AA 6Result Comment: [07/25/2013] given w/out incident 7Admin Note: vis sheet given. 8Admin Note: historial data 9Result Comment: [id number] 10Admin Note: mass bio 11Admin Note: sanofi Medications acetaminophen 650 mg oral tablet, extended release 2 tablet = 1,300 mg, By Mouth, Every 8 hours, PRN as needed for pain, for 30 days, # 90 tablet, 5 Refills, Acute 10/18/20 17:11:00 EST, 04/21/20 17:11:00 EDT, ER Tablet, [facility], 167, cm, 01/14/20 9:59:00 EDT, Height Start Date: 04/21/20 Stop Date: 10/18/20 Status: Ordered Advair HFA 115 mcg / 21 mcg 2 puffs, Inhalation, 2 times a day, Dx: COPD rinse mouth and throat after use, # 3 each, 3 Refills,Maintenance, 04/16/20 10:16:00 EDT, Aerosol, [facility]., replaces Rx for symbicort not covered by her insurance, 2 puffs Inhalation 2... Start Date: 04/16/20 Stop Date: 04/11/21 Status: Ordered amitriptyline 100 mg oral tablet 1.5 tablet = 150 mg, By Mouth, Daily at bedtime, # 135 tablet, 3 Refills, Maintenance, 04/16/20 10:16:00 EDT, Tablet, [facility]., 167, cm, 01/14/20 9:59:00 EDT, Height Start Date: 04/16/20 Stop Date: 04/11/21 Status: Ordered amLODIPine 10 mg oral tablet 10 mg, 1, tablet, By Mouth, Daily, # 90 tablet, Refills 3, Tot. Refills 3, Maintenance, 04/16/20 10:16:00 EDT, Route to Pharmacy Electronically, [facility] 167, cm, 01/14/20 9:59:00 EDT, Height Start [...] 3 Refills, Maintenance, 05/11/20 9:45:00 EDT, Tablet, [facility]., 167, cm, 01/14/20 9:59:00 EDT, Height Start Date: 05/11/20 Stop Date: 05/06/21 Status: Ordered buPROPion 300 mg/24 hours (XL) oral tablet, extended release 1 tablet = 300 mg, By Mouth, Daily, # 30 tablet, 7 Refills, Maintenance, 10/07/19 11:04:16 EST, ER Tablet, increase in dose, 167, cm, 10/07/19 10:55:37 EST, Height Start Date: 10/07/19 Stop Date: 06/03/20 Status: Ordered busPIRone 10 mg oral tablet 10 mg, 1, tablet, By Mouth, 2 times a day, # 180 tablet, Refills 3, Tot. Refills 3, Maintenance, 07/07/20 12:31:00 EDT, Route to Pharmacy Electronically, [facility] 167, cm, 209:59:00 EDT, Height Start Date: 07/07/20 Stop Date: 07/02/21 Status: Ordered cetirizine 10 mg oral tablet 1 tablet = 10 mg, By Mouth, Daily, PRN for allergy symptoms, # 30 tablet, 8 Refills, Maintenance, 09/01/20 17:26:00 EST, Tablet, [facility]., 167, cm, 01/14/20 9:59:00 EDT, Height Start Date: 09/01/20 Stop Date: 05/29/21 Status: Ordered chlorthalidone 25 mg oral tablet 25 mg, 1, tablet, By Mouth, Daily, # 90 tablet, Refills 3, Tot. Refills 3, Maintenance, 04/16/20 10:15:00 EDT, Route to Pharmacy Electronically, [facility], replaces hydrochlorothiazide, 167, cm, 01/14/20 9:59:00 [...] kit, 1 Refills, Soft Stop,04/16/20 10:16:00 EDT, [facility], 167, cm, 01/14/20 9:59:00 EDT, Height Start Date: 04/16/20 Status: Ordered FLUoxetine 20 mg oral capsule 3, capsule, By Mouth, Daily, # 270 capsule, Refills 3, Tot. Refills 0, Maintenance, 02/21/20 15:09:00 EDT, Route to Pharmacy Electronically, [facility], 167, cm, 01/14/20 9:59:00 EDT, Height Start Date: 02/21/20 Stop Date: 05/21/20 Status: Ordered gabapentin 300 mg oral capsule See Instructions, 3 capsule By Mouthin a.m. 3 in early pm and 4 at bedtime. Dx: chronic low back pain, # 900 capsule, Refills 3, Tot. Refills 3, Maintenance, 10/07/19 11:06:05 EST, Instructions Replace Required Details, Route to Pharmacy Electronica... Start Date: 10/07/19 Status: Ordered gloves, large gloves, large, See Instructions, # 50 each, Refills 11, Tot. Refills 11, Maintenance, use when handling soiled linen Dx: N39.4, 03/20/20 17:02:00 EDT, Supply Start Date: 03/20/20 Status: Ordered lidocaine 4% topical cream 1 application, Topically, 2 times a day, PRN Pain , Moderate, for 30 days, apply to affected painful joints, # 30 Gm, 1 Refills, Acute 10/31/20 17:30:00 EST, 09/01/20 17:30:00 EST, Cream, 1 application Topically 2 times a day,x30 days,PRN:Pain , Moder... Start Date: 09/01/20 Stop Date: 10/31/20 Status: Ordered losartan 50 mg oral tablet 50 mg, 1, tablet, By Mouth, Daily, # 90 tablet, Refills 3, Tot. Refills 3, Maintenance, 01/14/20 10:17:00 EDT, [facility], 167, cm, 01/14/20 9:59:00 EDT, Height Start Date: 01/14/20 Stop Date: 01/08/21 Status: Ordered Meclizine By Mouth, 3 times a day, 0 Refills, Maintenance, 12/14/18 15:25:26 EST Start Date: 12/14/18 Status: Ordered nystatin topical [id number] u/gm powder See Instructions, APPLY TOPICALLY TO AFFECTED AREA TWO TIMES A DAY FOR 14 DAYS, # 30 Gm, 0 Refills,Acute, [facility], 14, APPLY TOPICALLY TO AFFECTED AREA TWO [...] # 56 tablet, 0 Refills, Hard Stop 09/29/20 17:32:00 EST, 09/01/20 17:32:00 EST, ER Tablet, [facility]... Start Date: 09/01/20 Stop Date: 09/29/20 Status: Ordered Periwash Perineal cleaning solution Periwash [...] # 1 each, 5 Refills, Soft Stop, 01/14/20 10:16:00 EDT, [facility]ol, [facility] proair, 167, cm, 01/14/20 9:59:00 EDT, Height Start Date: 01/14/20 Stop Date: 07/12/20 Status: Ordered zolpidem 10 mg oral tablet 1 tablet = 10 mg, By Mouth, Daily at bedtime, PRN as needed for insomnia, # 28 tablet, 0 Refills, Soft Stop, 08/18/20 8:53:00 EDT, [facility], cm, 01/14/20 9:59:00 EDT, Height Start Date: 08/18/20 Stop Date: 09/15/20 Status: Ordered Problem List Condition Effective Dates [...] mellitus (aunt)(Confirmed) Active FH: 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
--- OUTSIDE RECORDS SUMMARY | 2023-12-11 08:21 | XMS_ITS | Continuity of Care Document ---
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 Name Role Phone Cesario SCHULER, Demario Primary Care Physician Encounter [facility] Date(s): 04/22/22 - 05/22/22 [facility] [address] [place], [place] [address] Allergies, Adverse Reactions, Alerts Substance [...] (oldterm) 12 10/08/07 Give n 1Result Comment: [id number] given w/out incident 2Result Comment: [facility]: [id number] 3Result Comment: [id number] given w/out incident 4Result Comment: [08/17/2018] [facility] [id number] 5Result Comment: [08/31/2017] given w/out incident [facility]: [id number] 6Result Comment: [08/21/2014] given w/o incident...AA 7Result Comment: [07/25/2013] given w/out incident 8Admin Note: vis sheet given. 9Admin Note: historial data 10Result Comment: [id number] 11Admin Note: mass bio 12Admin Note: sanofi [...] EVERY USE., # 36 Gm, 3 Refills, [facility], 90, INHALE 2 PUFFS BY MOUTH TWO TIMES A DAY RINSE MOUTH AFTER EVERY USE., 177, cm, 10/19/21 10:00:00 EST, Height, 108, kg... Start Date: 12/21/21 Status: Ordered amitriptyline 100 mg oral tablet 0.5 tablet = 50 mg, By Mouth, Daily at bedtime, # 45 tablet, 3 Refills, Maintenance, 06/02/21 11:36:00 EDT, Tablet, [facility] 177, cm, 06/02/21 11:35:00 EDT, Height, 108, kg, 05/24/21 19:44:00 EDT, Dry Weight Start Date: 06/02/21 Stop Date: 05/28/22 Status: Ordered amLODIPine 10 mg oral tablet 10 mg, 1, tablet, By Mouth, Daily, # 90 tablet, Refills 1, Tot. Refills 1, Maintenance, 05/28/22 11:36:00 EDT, Route to Pharmacy Electronically, [facility], 177, cm, 10/19/21 10:00:00EST, Height, 108, kg, 05/24/21 19:44:00 EDT, Dry We... Start Date: 05/28/22 Stop Date: 11/24/22 Status: Ordered amLODIPine 10 mg oral tablet See Instructions, TAKE 1 TABLET BY MOUTH DAILY, # 90 tablet, 3 Refills, [facility], 177, cm, 12/21/21 8:59:00 EST, Height, 114.4, kg, 02/14/22 21:57:00 EDT, Dry Weight Start Date: 05/09/22 Status: Ordered atorvastatin 40 mg oral tablet [...] Refills, Maintenance, 09/16/21 9:24:00 EST, ER Tablet, [facility], increase in dose, 177, cm, 06/02/21 11:35:00 EDT, Height, 108, kg, 05/24/21 19:44:00 EDT, Dry Weight Start Date: 09/16/21 Stop Date: 09/11/22 Status: Ordered busPIRone 10 mg oral tablet 15 mg, 1.5, tablet, By Mouth, 2 times a day, # 270 tablet, Refills 3, Tot. Refills 3, Maintenance, 09/16/21 9:24:00 EST, Route to Pharmacy Electronically, [facility], 177, cm, 06/02/21 11:35:00 EDT, Height, 108, kg, 05/24/21 19:44:00 E... Start Date: 09/16/21 Stop Date: 09/11/22 Status: Ordered cetirizine 10 mg oral tablet 1 tablet, By Mouth, Daily, PRN NEEDED FOR ALLERGY SYMPTOMS, # 30 tablet, 5 Refills, 04/16/22 9:35:00 EDT, [facility], 177, cm, 12/21/21 8:59:00 EST, Height, 114.4, kg, 02/14/22 21:57:00 EDT, Dry Weight Start Date: 04/16/22 Status: Ordered chlorthalidone 25 mg oral tablet 25 mg, 1, tablet, By Mouth, Daily, # 30 tablet, Refills 1, Tot. Refills 1, Maintenance, 04/29/22 14:31:00 EDT, Route to Pharmacy Electronically, [facility], replaces spironolactone, 177, cm, 12/21/21 8:59:00 EST, Height, 114.4, kg, 04/... Start Date: 04/29/22 Stop Date: 06/28/22 Status: Ordered CPAP Supplies - Tubing, Filter, [...] (SEVERE ALLERGY), # 2 Unknown, 1 Refills, [facility], 177, cm, 06/02/21 11:35:00 EDT, Height, 108, kg, 05/24/21 19:44:00 EDT, Dry Weight Start Date: 09/08/21 Status: Ordered gabapentin 300 mg oral capsule See Instructions, TAKE 3 CAPSULES BY MOUTH IN THE MORNING, 2 CAPSULES EARLY PM AND 3 CAPSULES AT BEDTIME., # 900 capsule, Refills 3, Instructions Replace Required Details, Route to Pharmacy Electronically, [facility], 177, cm, 12/21/21 8:59:... Start Date: 01/11/22 Status: Ordered gloves, large gloves, large, See Instructions, # 50 each, Refills 11, Tot. Refills 11, Maintenance, use when handling soiled linen Dx: N39.4, 03/20/20 17:02:00 EDT, Supply Start Date: 03/20/20 Status: Ordered losartan 100 mg oral tablet 1 tablet = 100 mg, By Mouth, Daily, # 90 tablet, 4 Refills, Maintenance, 03/31/22 15:03:00 EDT, Tablet, [facility], increase in dose, 177, cm, 12/21/21 8:59:00 EST, Height, 114.4, kg,02/14/22 21:57:00 EDT, Dry Weight Start Date: 03/31/22 Stop Date: 06/24/23 Status: Ordered Mapap Arthritis Pain 650 mg oral tablet, extended release 2 tablet, By Mouth, Every 8 hours, PRN NEEDED FOR PAIN FOR, for 30 days, # 90 tablet, 9 Refills,Physician Stop 10/17/22 9:00:00 EST, 12/21/21 9:00:00 EST, [facility], 177, cm, 12/21/21 8:59:00 EST, Height, [...] , Severe, # 56 tablet, 0 Refills, Maintenance,05/09/22 19:30:00 EDT, [facility], may dispense on 05-10-2022, 177, cm, 12/21/21 8:59:00 EST, Height, 114.4, kg, 02/14/22 21:57:00 EDT,... Start Date: 05/09/22 Stop Date: 06/06/22 Status: Ordered Periwash Perineal cleaning solution Periwash [...] Date: 09/16/21 Stop Date: 09/11/22 Status: Ordered Ventolin HFA 108 mcg/inh inhalation aerosol with adapter 2 puffs, Inhalation, 4 times a day, PRN NEEDED FOR WHEEZING, # 18 Gm, 6 Refills, 12/28/21 11:00:00 EST, [facility], 177, cm, 12/21/21 8:59:00 EST, Height, 108, kg, 05/24/21 19:44:00 EDT, Dry Weight Start Date: 12/28/21 Status: Ordered Zofran 4 mg oral tablet 1 tablet = 4 mg, By Mouth, Every 8 hours, PRN Nausea & Vomiting, # 12 tablet, 0 Refills, Acute 06/09/22 10:43:00 EDT, 06/09/21 10:43:00 EDT, Tablet, [facility], Partial fill upon patient request if the prescription is for a schedule II... Start Date: 06/09/21 Stop Date: 06/09/22 Status: Ordered zolpidem 10 mg oral tablet 1 tablet, By Mouth, Daily at bedtime, PRN NEEDED FOR INSOMNIA, for 28 days, # 28 tablet, 0 Refills, Acute 06/14/22 17:08:00 EDT, 05/17/22 17:08:00 EDT, [facility], 177, cm, 12/21/21 8:59:00 EST, Height, 114.... 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
--- OUTSIDE RECORDS SUMMARY | 2023-12-11 08:21 | XMS_ITS | Continuity of Care Document ---
Author Name Unknown Organization [facility] Address [address] [place] [address]- Care Team Providers Care Criminal Researcher Name Role Phone Cesario SCHULER, Demario Primary Care Physician Encounter [facility] Date(s): 12/29/22 - 01/28/23 [facility] [address] [place], [place] [address] [place] Allergies, Adverse Reactions, Alerts Substance Reaction Severity [...] Reason: Other : not documented 2Result Comment: [id number] given w/out incident 3Result Comment: [id number] given w/out incident 4Result Comment: [facility]: 26137-493-06 5Result Comment: [id number] given w/out incident 6Result Comment: [08/17/2018] [facility] 10022-098-51 7Result Comment: [08/31/2017] given w/out incident [facility]: [id number] 8Result Comment: [08/21/2014] given w/o incident...AA 9Result Comment: [07/25/2013] given w/out incident 10Admin Note: vis sheet given. 11Admin Note: historial data 12Result Comment: [id number] 13Admin Note: mass bio 14Admin Note: sanofi [...] Gm, 1 Refills, Maintenance, 01/06/23 15:18:00 EST[facility], INHALE 2 PUFFS BY MOUTH TWO TIMES A DAY RINSE MOUTH AFTER EVERYUSE., 167, cm, 12/05/22 10:53:00 EST, Height, 114.4... Start Date: 01/06/23 Status: Ordered All Day Allergy 10 mg oral tablet 1 tablet, By Mouth, Daily, PRN NEEDED FOR ALLERGY SYMPTOMS, # 30 tablet, 6 Refills, Maintenance,11/08/22 15:08:00 EST, [facility], 177, cm, 12/21/21 8:59:00 EST, Height, 114.4, kg, 02/14/22 21:57:00 EDT, Dry Weight Start Date: 11/08/22 Status: Ordered amLODIPine 10 mg oral tablet 10 mg, 1, tablet, By Mouth, Daily, # 90 tablet, Refills 3, Tot. Refills 3, Maintenance, 11/25/22 15:31:00 EST, Route to Pharmacy Electronically, [facility], 177, cm, 12/21/21 8:59:00 EST, Height, [...] Refills, Maintenance, 10/21/22 12:33:00 EST, ER Tablet, [facility], increase in dose, 177, cm, 12/21/21 [...] 08/02/22 15:37:00 EDT, Route to Pharmacy Electronically, [facility], replaces spironolactone, 177, cm, 12/21/21 8:59:00 [...] (SEVERE ALLERGY), # 2 Unknown, 1 Refills, [facility], 177, cm, 06/02/21 11:35:00 EDT, Height, 108, kg, 05/24/21 19:44:00 EDT, Dry Weight Start Date: 09/08/21 Status: Ordered gabapentin 300 mg oral capsule See Instructions, TAKE 3 CAPSULES BY MOUTH IN THE MORNING, 3 CAPSULES EARLY PM AND 4 CAPSULES AT BEDTIME., # 900 capsule, Refills 3, Maintenance, 12/23/22 13:41:00 EST, Instructions Replace Required Details, [facility], [facility] Start Date: 12/23/22 Status: Ordered gloves, large gloves, large, See Instructions, # 50 each, Refills 11, Tot. Refills 11, Maintenance, use when handling soiled linen Dx: N39.4, 03/20/20 17:02:00 EDT, Supply Start Date: 03/20/20 Status: Ordered losartan 100 mg oral tablet 1 tablet = 100 mg, By Mouth, Daily, # 90 tablet, 4 Refills, Maintenance, 03/31/22 15:03:00 EDT, Tablet, [facility]., increase in dose, 177, cm, 12/21/21 8:59:00 EST, Height, 114.4, kg,02/14/22 21:57:00 EDT, Dry Weight Start Date: 03/31/22 Stop Date: 06/24/23 Status: Ordered Mapap Arthritis Pain 650 mg oral tablet, extended release 2 tablet, By Mouth, Every 8 hours, PRN NEEDED FOR PAIN, # 90 tablet, 11 Refills, Maintenance, 08/12/22 10:25:00 EDT, [facility], cm, 12/21/21 8:59:00 EST, Height, 114.4, [...] , Severe, # 56 tablet, 0 Refills, Maintenance,01/17/23 16:47:00 EDT, [facility]., resent, 167, cm, 12/05/22 10:53:00 EST, Height, 114.4, kg, 02/14/22 21:57:00 EDT, Dry Weight Start Date: 01/17/23 Stop Date: 02/14/23 Status: Ordered Protonix 40 mg oral delayed [...] WHEEZING, # 18 Gm, 5 Refills, Maintenance, 12/15/22 14:09:00 EST, [facility]., 167, cm, 12/05/22 10:53:00 EST, Height, 114.4, kg, 02/14/22 21:57:00 EDT, Dry Weight Start Date: 12/15/22 Status: Ordered zolpidem 10 mg oral tablet 1 tablet, By Mouth, Daily at bedtime, PRN NEEDED FOR INSOMNIA, for 28 days, # 28 tablet, 0 Refills, Acute 02/24/23 13:53:00 EDT, 01/27/23 13:53:00 EDT, [facility], refill on April 15, 2022, 167, cm, 12/05/22 10:53:00 EST, Height, 114... 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
--- OUTSIDE RECORDS SUMMARY | 2023-12-11 08:21 | XMS_ITS | Continuity of Care Document ---
Author Name Unknown Organization [facility] Address [address] [place] [address]- Care Team Providers Care Pretzel Twister Name Role Phone Demario Nassar MD Primary Care Physician Encounter [facility] [place] Date(s): 02/13/23 - 03/15/23 [facility] [address] [place], [place] [address] Allergies, Adverse Reactions, Alerts Substance Reaction [...] Reason: Other : not documented 2Result Comment: [id number] given w/out incident 3Result Comment: [id number] given w/out incident 4Result Comment: [facility]: 84654-884-24 5Result Comment: [id number] given w/out incident 6Result Comment: [08/17/2018] [facility] 10316-478-19 7Result Comment: [08/31/2017] given w/out incident [facility]: [id number] 8Result Comment: [08/21/2014] given w/o incident...AA 9Result Comment: [07/25/2013] given w/out incident 10Admin Note: vis sheet given. 11Admin Note: historial data 12Result Comment: [id number] 13Admin Note: mass bio 14Admin Note: sanofi [...] Gm, 1 Refills, Maintenance, 01/06/23 15:18:00 EST, [facility], 90, INHALE 2 PUFFS BY MOUTH TWO TIMES A DAY RINSE MOUTH AFTER EVERYUSE., 167, cm, 12/05/22 10:53:00 EST, Height, 114.4... Start Date: 01/06/23 Status: Ordered All Day Allergy 10 mg oral tablet 1 tablet, By Mouth, Daily, PRN NEEDED FOR ALLERGY SYMPTOMS, # 30 tablet, 6 Refills, Maintenance,11/08/22 15:08:00 EST, [facility], 177, cm, 12/21/21 8:59:00 EST, Height, 114.4, kg, 02/14/22 21:57:00 EDT, Dry Weight Start Date: 11/08/22 Status: Ordered amLODIPine 10 mg oral tablet 10 mg, 1, tablet, By Mouth, Daily, # 90 tablet, Refills 3, Tot. Refills 3, Maintenance, 11/25/22 15:31:00 EST, Route to Pharmacy Electronically, [facility], 177, cm, 12/21/21 8:59:00 EST, Height, 114.4, kg, 02/14/22 21:57:00 EDT, Dry W... Start Date: 11/25/22 Stop Date: 11/20/23 Status: Ordered atorvastatin 40 mg oral tablet 1 tablet, By Mouth, Daily, # 90 tablet, 1 Refills, Maintenance, 02/03/23 16:11:00 EDT, [facility], 167, cm, 12/05/22 10:53:00 EST, Height, [...] Refills, Maintenance, 10/21/22 12:33:00 EST, ER Tablet, [facility], increase in dose, 177, cm, 12/21/21 8:59:00 [...] 08/02/22 15:37:00 EDT, [facility], 177, cm, 12/21/21 8:59:00 [...] (SEVERE ALLERGY), # 2 Unknown, 1 Refills, [facility], 177, cm, 06/02/21 11:35:00 EDT, Height, 108, kg, 05/24/21 19:44:00 EDT, Dry Weight Start Date: 09/08/21 Status: Ordered gabapentin 300 mg oral capsule See Instructions, TAKE 3 CAPSULES BY MOUTH IN THE MORNING, 3 CAPSULES EARLY PM AND 4 CAPSULES AT BEDTIME., # 900 capsule, Refills 3, Maintenance, 12/23/22 13:41:00 EST, Instructions Replace Required Details, Route to Pharm[facility] Electronically, [facility] Start Date: 12/23/22 Status: Ordered gloves, large gloves, large, See Instructions, # 50 each, Refills 11, Tot. Refills 11, Maintenance, use when handling soiled linen Dx: N39.4, 03/20/20 17:02:00 EDT, Supply Start Date: 03/20/20 Status: Ordered losartan 100 mg oral tablet 1 tablet = 100 mg, By Mouth, Daily, # 90 tablet, 4 Refills, Maintenance, 03/31/22 15:03:00 EDT, Tablet, [facility]., increase in dose, 177, cm, 12/21/21 8:59:00 EST, Height, 114.4, kg,02/14/22 21:57:00 EDT, Dry Weight Start Date: 03/31/22 Stop Date: 06/24/23 Status: Ordered Mapap Arthritis Pain 650 mg oral tablet, extended release 2 tablet, By Mouth, Every 8 hours, PRN NEEDED FOR PAIN, # 90 tablet, 11 Refills, Maintenance, 08/12/22 10:25:00 EDT, [facility], 177, cm, 12/21/21 8:59:00 EST, [...] , Severe, # 56 tablet, 0 Refills, Maintenance,03/14/23 9:10:00 EDT, [facility], resent, 167, cm, 12/05/22 10:53:00 EST, Height, 114.4, kg, 02/14/22 21:57:00 EDT, Dry Weight Start Date: 03/14/23 Stop Date: 04/11/23 Status: Ordered Protonix 40 mg oral delayed [...] 5 Refills, Maintenance, 12/15/22 14:09:00 EST, [facility] 167, cm, 12/05/22 10:53:00 EST, Height, 114.4, kg, 02/14/22 21:57:00 EDT, Dry Weight Start Date: 12/15/22 Status: Ordered Problem List Condition Confirmation Course [...] Confirmed Active FH: 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 (mom) 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 Confirmed Active [...] Team Personnel Name: Ermelinda Rice RN Position: [facility] RN Member Role: Primary Care Nurse Name: Tri Sebastian RN Position: S RN Member Role: Primary Care Nurse Name: Demario Nassar MD Position: [facility] Primary Care Physician Member Role: PCP Address: Address: [address] [place] [address] Adult & [place] [address]- Care Team Related Persons Name: STYLESEPIFANIO Address: home [address] [place] [address] [place] [id number] Name: DEUCE SEE
--- OUTSIDE RECORDS SUMMARY | 2023-12-11 08:21 | XMS_ITS | Continuity of Care Document ---
Author Name Unknown Organization [facility] Address [address] [place] [address]- Care Team Providers Care Sports Therapist Name Role Phone Demario Nassar MD Primary Care Physician Encounter [facility] Date(s): 08/04/20 - 09/03/20 [facility] [address] [place], [place] [address] Allergies, Adverse Reactions, Alerts Substance [...] (oldterm) 11 10/08/07 Give n 1Result Comment: [facility]: 40337-556-02 2Result Comment: [id number] given w/out incident 3Result Comment: [08/17/2018] [facility] [id number] 4Result Comment: [08/31/2017] given w/out incident [facility]: [id number] 5Result Comment: [08/21/2014] given w/o incident...AA 6Result Comment: [07/25/2013] given w/out incident 7Admin Note: vis sheet given. 8Admin Note: historial data 9Result Comment: [id number] 10Admin Note: mass bio 11Admin Note: sanofi Medications acetaminophen 650 mg oral tablet, extended release 2 tablet = 1,300 mg, By Mouth, Every 8 hours, PRN as needed for pain, for 30 days, # 90 tablet, 5 Refills, Acute 10/18/20 17:11:00 EST, 04/21/20 17:11:00 EDT, [facility] 167, cm, 01/14/20 9:59:00 EDT, Height Start Date: 04/21/20 Stop Date: 10/18/20 Status: Ordered Advair HFA 115 mcg / 21 mcg 2 puffs, Inhalation, 2 times a day, Dx: COPD rinse mouth and throat after use, # 3 each, 3 Refills,Maintenance, 04/16/20 10:16:00 EDT, Aerosol, [facility] replaces Rx for symbicort not covered by her insurance, 2 puffs Inhalation 2... Start Date: 04/16/20 Stop Date: 04/11/21 Status: Ordered amitriptyline 100 mg oral tablet 1.5 tablet = 150 mg, By Mouth, Daily at bedtime, # 135 tablet, 3 Refills, Maintenance, 04/16/20 10:16:00 EDT, Tablet, [facility] 167, cm, 01/14/20 9:59:00 EDT, Height Start Date: 04/16/20 Stop Date: 04/11/21 Status: Ordered amLODIPine 10 mg oral tablet 10 mg, 1, tablet, By Mouth, Daily, # 90 tablet, Refills 3, Tot. Refills 3, Maintenance, 04/16/20 10:16:00 EDT, Route to Pharmacy Electronically, [facility] 167, cm, 01/14/20 9:59:00 EDT, Height [...] 3 Refills, Maintenance, 05/11/20 9:45:00 EDT, Tablet, [facility] 167, cm, 01/14/20 9:59:00 EDT, Height [...] 07/07/20 12:31:00 EDT, Route to Pharmacy Electronically, [facility] 167, cm, 209:59:00 EDT, Height Start Date: 07/07/20 Stop Date: 07/02/21 Status: Ordered cetirizine 10 mg oral tablet 1 tablet = 10 mg, By Mouth, Daily, PRN for allergy symptoms, # 30 tablet, 8 Refills, Maintenance, 09/01/20 17:26:00 EST, Tablet, [facility] 167, cm, 01/14/20 9:59:00 EDT, Height Start Date: 09/01/20 Stop Date: 05/29/21 Status: Ordered chlorthalidone 25 mg oral tablet 25 mg, 1, tablet, By Mouth, Daily, # 90 tablet, Refills 3, Tot. Refills 3, Maintenance, 04/16/20 10:15:00 EDT, Route to Pharmacy Electronically, [facility], replaces hydrochlorothiazide, 167, cm, 01/14/20 9:59:00 [...] kit, 1 Refills, Soft Stop,04/16/20 10:16:00 EDT, [facility], 167, cm, 01/14/20 9:59:00 EDT, Height Start Date: 04/16/20 Status: Ordered FLUoxetine 20 mg oral capsule 3, capsule, By Mouth, Daily, # 270 capsule, Refills 3, Tot. Refills 0, Maintenance, 02/21/20 15:09:00 EDT, Route to Pharmacy Electronically, [facility], 167, cm, 01/14/20 9:59:00 EDT, Height Start [...] 01/14/20 10:17:00 EDT, Route to Pharmacy Electronically, [facility], lower dose, 167, cm, 01/14/20 9:59:00 EDT, Height Start Date: 01/14/20 Stop Date: 01/08/21 Status: Ordered Meclizine By Mouth, 3 times a day, 0 Refills, Maintenance, 12/14/18 15:25:26 EST Start Date: 12/14/18 Status: Ordered nystatin topical 803690 u/gm powder See Instructions, APPLY TOPICALLY TO AFFECTED AREA TWO TIMES A DAY FOR 14 DAYS, # 30 Gm, 0 Refills,Acute, [facility], 14, APPLY TOPICALLY TO AFFECTED AREA [...] 17:32:00 EST, 09/01/20 17:32:00 EST, ER Tablet, [facility] 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
--- OUTSIDE RECORDS SUMMARY | 2023-12-11 08:21 | XMS_ITS | Continuity of Care Document ---
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 Role Phone Cesario SCHULER, Demario Primary Care Physician Encounter [facility] Date(s): 04/16/20 - 05/16/20 [facility] [address] [place] [address]- [facility] Attending Physician: Admtr, Ar8 Allergies, Adverse Reactions, Alerts Substance Reaction Severity Status morphine C/O: itching Active Bee Stings swelling, loss of consciousness Active fentaNYL C/O: itching Active Immunizations Given and Recorded Vaccine Date Status Refusal Reason Typhoid Vaccine, Inactivated 11/19/19 Given Hepatitis A Adult Vaccine 11/19/19 Given influenza virus vaccine, inactivated 1 07/23/19 Gi cyn influenza virus vaccine, inactivated 2 08/17/18 Gi cyn influenza virus vaccine, inactivated 3 08/31/17 Gi cyn influenza virus vaccine, inactivated 08/07/15 Give n influenza virus vaccine, inactivated 4 08/21/14 Gi cyn influenza virus vaccine, inactivated 5 07/25/13 Gi cyn influenza virus vaccine, inactivated 6 07/06/12 Gi cyn influenza virus vaccine, inactivated 07/06/11 Give n tetanus-diphtheria toxoids (Td) 04/23/19 Given tetanus-diphtheria toxoids (Td) 7 11/27/96 Given pneumococcal 23-valent vaccine 8 01/22/19 Given diphtheria-tetanus toxoids (DT) 9 03/19/09 Given Influenza Virus Vaccine (oldterm) 10 10/08/07 Give n 1Result Comment: [id number] given w/out incident 2Result Comment: [08/17/2018] [facility] [id number] 3Result Comment: [08/31/2017] given w/out incident [facility] named [facility]: [id number] 4Result Comment: [08/21/2014] given w/o incident...AA 5Result Comment: [07/25/2013] given w/out incident 6Admin Note: vis sheet given. 7Admin Note: historial data 8Result Comment: [id number] 9Admin Note: mass bio 10Admin Note: sanofi Medications acetaminophen 650 mg oral tablet, extended release 2 tablet = 1,300 mg, By Mouth, Every 8 hours, PRN as needed for pain, for 30 days, # 90 tablet, 5 Refills, Acute 10/18/20 17:11:00 EST, 04/21/20 17:11:00 EDT, ER Tablet, [facility] 167, cm, 01/14/20 9:59:00 EDT, Height Start Date: 04/21/20 Stop Date: 10/18/20 Status: Ordered Advair HFA 115 mcg / 21 mcg 2 puffs, Inhalation, 2 times a day, Dx: COPD rinse mouth and throat after use, # 3 each, 3 Refills,Maintenance, 04/16/20 10:16:00 EDT, Aerosol, [facility], replaces Rx for symbicort not covered by her insurance, 2 puffs Inhalation 2... Start Date: 04/16/20 Stop Date: 04/11/21 Status: Ordered amitriptyline 100 mg oral tablet 1.5 tablet = 150 mg, By Mouth, Daily at bedtime, # 135 tablet, 3 Refills, Maintenance, 04/16/20 10:16:00 EDT, Tablet, [facility] 167, cm, 01/14/20 9:59:00 EDT, Height Start Date: 04/16/20 Stop Date: 04/11/21 Status: Ordered amLODIPine 10 mg oral tablet 10 mg, 1, tablet, By Mouth, Daily, # 90 tablet, Refills 3, Tot. Refills 3, Maintenance, 04/16/20 10:16:00 EDT, Route to Pharmacy Electronically, [facility] 167, cm, 01/14/20 9:59:00 EDT, Height Start Date: 04/16/20 Stop Date: 04/11/21 Status: Ordered atorvastatin 20 mg oral tablet 1 tablet = 20 mg, By Mouth, Daily, # 90 tablet, 3 Refills, Maintenance, 05/11/20 9:45:00 EDT, Tablet, [facility], 167, cm, 01/14/20 9:59:00 EDT, [...] 04/16/20 10:16:00 EDT, Route to Pharmacy Electronically, [facility], 167, cm, 209:59:00 EDT, Height Start Date: 04/16/20 Stop Date: 04/11/21 Status: Ordered chlorthalidone 25 mg oral tablet 25 mg, 1, tablet, By Mouth, Daily, # 90 tablet, Refills 3, Tot. Refills 3, Maintenance, 04/16/20 10:15:00 EDT, Route to Pharmacy Electronically, [facility], replaces hydrochlorothiazide, 167, cm, 01/14/20 [...] kit, 1 Refills, Soft Stop,04/16/20 10:16:00 EDT, [facility], 167, cm, 01/14/20 9:59:00 EDT, Height Start Date: 04/16/20 Status: Ordered FLUoxetine 20 mg oral capsule 3, capsule, By Mouth, Daily, # 270 capsule, Refills 3, Tot. Refills 0, Maintenance, 02/21/20 15:09:00 EDT, Route to Pharmacy Electronically, [facility], 167, cm, 01/14/20 9:59:00 EDT, [...] 01/14/20 10:17:00 EDT, Route to Pharmacy Electronically, [facility], lower dose, 167, cm, 01/14/20 9:59:00 EDT, Height Start Date: 01/14/20 Stop Date: 01/08/21 Status: Ordered Meclizine By Mouth, 3 times a day, 0 Refills, Maintenance, 12/14/18 15:25:26 EST Start Date: 12/14/18 Status: Ordered nystatin topical [id number] u/gm powder See Instructions, APPLY TOPICALLY TO AFFECTED AREA TWO TIMES A DAY FOR 14 DAYS, # 30 Gm, 0 Refills,Acute, [facility], 14, APPLY TOPICALLY TO AFFECTED AREA TWO [...] # 56 tablet, 0 Refills, Hard Stop 06/09/20 15:35:00 EDT, 05/12/20 15:35:00 EDT, ER Tablet, [facility]... Start Date: 05/12/20 Stop Date: 06/09/20 Status: Ordered Periwash Perineal cleaning solution Periwash [...] Refills, Soft Stop, 01/14/20 10:16:00 EDT, Aerosol, [facility] replaces proair, 167, cm, 01/14/20 9:59:00 EDT, Height Start Date: 01/14/20 Stop Date: 07/12/20 Status: Ordered zolpidem 10 mg oral tablet 1 tablet = 10 mg, By Mouth, Daily at bedtime, PRN as needed for insomnia, # 28 tablet, 0 Refills, Soft Stop, 04/27/20 15:31:00 EDT, [facility] 167, cm, 01/14/20 9:59:00 EDT, Height Start Date: 04/27/20 Stop Date: 05/25/20 Status: Ordered Problem List Condition Effective Dates [...] mellitus (aunt)(Confirmed) Active FH: 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 (mom)(Confirmed) Active assisted current use 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
--- OUTSIDE RECORDS SUMMARY | 2023-12-11 08:21 | XMS_ITS | Continuity of Care Document ---
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 Role Phone Cesario SCHULER, Demario Primary Care Physician Encounter [facility] Date(s): 07/18/23 - 08/17/23 [facility] [address] [place], [place] [address] Allergies, Adverse Reactions, Alerts Substance Reaction [...] Reason: Other : not documented 2Result Comment: [id number] given w/out incident 3Result Comment: [id number] given w/out incident 4Result Comment: [facility]: [id number] 5Result Comment: [id number] given w/out incident 6Result Comment: [08/17/2018] [facility] [id number] 7Result Comment: [08/31/2017] given w/out incident [facility]: [id number] 8Result Comment: [08/21/2014] given w/o incident...AA 9Result Comment: [07/25/2013] given w/out incident 10Admin Note: vis sheet given. 11Admin Note: historial data 12Result Comment: [id number] 13Admin Note: mass bio 14Admin Note: sanofi [...] tablet, 5 Refills, Maintenance, 07/28/23 13:25:00 EDT, [facility], 167, cm, 05/29/23 18:21:00 EDT, Height, 114.4, kg, 02/14/22 21:57:00 EDT, Dry Weight Start Date: 07/28/23 Status: Ordered Advair HFA 115 mcg / 21 mcg 2 puffs, Inhalation, 2 times a day, AFTER EVERY USE., # 36 Gm, 1 Refills, Maintenance, 07/28/23 13:25:00 EDT, [facility], 90, INHALE 2 PUFFS BY MOUTH TWO TIMES A DAY RINSE MOUTH AFTER EVERYUSE., 167, cm, 05/29/23 18:21:00 EDT, Height, 114.4... Start Date: 07/28/23 Status: Ordered All Day Allergy 10 mg oral tablet 1 tablet, By Mouth, Daily, PRN NEEDED FOR ALLERGY SYMPTOMS, # 30 tablet, 5 Refills, Maintenance,06/20/23 7:39:00 EDT, [facility], 167, cm, 05/29/23 18:21:00 EDT, Height, 114.4, kg, 02/14/22 21:57:00 EDT, Dry Weight Start Date: 06/20/23 Status: Ordered amLODIPine 10 mg oral tablet 10 mg, 1, tablet, By Mouth, Daily, # 90 tablet, Refills 3, Tot. Refills 3, Maintenance, 11/25/22 15:31:00 EST, Route to Pharmacy Electronically, [facility], 177, cm, 12/21/21 8:59:00 EST, Height, 114.4, kg, 02/14/22 21:57:00 EDT, Dry W... Start Date: 11/25/22 Stop Date: 11/20/23 Status: Ordered atorvastatin 40 mg oral tablet 1 tablet, By Mouth, Daily, # 90 tablet, 1 Refills, Maintenance, 02/03/23 16:11:00 EDT, [facility]., 167, cm, 12/05/22 10:53:00 EST, Height, 114.4, [...] 05/29/23 18:09:00 EDT, [facility], replaces spironolactone, 167, cm, 05/29/23 17:54:00 EDT, [...] Unknown, 1 Refills, Maintenance, 05/12/23 12:41:00 EDT, [facility], 167, cm, 12/05/22 10:53:00 EST, Height, 114.4, kg, 02/14/22 21:57:00 EDT,... Start Date: 05/12/23 Status: Ordered gabapentin 300 mg oral capsule See Instructions, TAKE 3 CAPSULES BY MOUTH IN THE MORNING, 3 CAPSULES EARLY PM AND 4 CAPSULES AT BEDTIME., # 900 capsule, Refills 3, Maintenance, 12/23/22 13:41:00 EST, Instructions Replace Required Details, [facility], [facility] Start Date: 12/23/22 Status: Ordered gloves, [...] 08/19/23 7:39:00 EDT, 07/20/23 7:39:00 EDT, Tablet, [facility], Partial fill upon patient request if the pre... Start Date: 07/20/23 Stop Date: 08/19/23 Status: Ordered losartan 100 mg oral tablet 1 tablet = 100 mg, By Mouth, Daily, # 90 tablet, 4 Refills, Maintenance, 05/29/23 18:09:00 EDT, Tablet, [facility], increase in dose, 167, cm, 05/29/23 17:54:00 [...] , Severe, # 56 tablet, 0 Refills, Maintenance,08/04/23 17:31:00 EDT, [facility], may fill no earlier than 08/08/23, 167, cm, 05/29/23 18:21:00 EDT, Height, 114.4, kg, 02/14/22 21:57... 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 RN Member Role: Primary Care Nurse Name: Demairo Nassar MD Position: [facility] Physician - Primary Care Member Role: PCP Address: Address: [address] [place] [address] Adult [place] [address]- Care Team Related Persons Name: EPIFANIO STYLES Address: [address] [place] [id number] Name: DEUCE SEE
--- OUTSIDE RECORDS SUMMARY | 2023-12-11 08:21 | XMS_ITS | Continuity of Care Document ---
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 Phone Demario Nassar MD Primary Care Physician Encounter [facility] Date(s): 07/07/21 - 08/06/21 [facility] [address] [place], [place] [address] Allergies, Adverse Reactions, Alerts Substance [...] 9 01/22/19 Given diphtheria-tetanus toxoids (DT) 10 5/21/09 Given Influenza Virus Vaccine (oldterm) 11 10/08/07 Give n 1Result Comment: [facility]: [id number] 2Result Comment: [id number] given w/out incident 3Result Comment: [08/17/2018] [facility] [id number] 4Result Comment: [08/31/2017] given w/out incident [facility]: [id number] 5Result Comment: [08/21/2014] given w/o incident...AA 6Result Comment: [07/25/2013] given w/out incident 7Admin Note: vis sheet given. 8Admin Note: historial data 9Result Comment: [id number] 10Admin Note: mass bio 11Admin Note: sanofi [...] each, 3 Refills,Maintenance, 05/28/21 18:23:00 EDT, Aerosol, [facility]/pharmacy #[id number], replaces Rx for symbicort not covered by her insurance, 2 puffs Inhalation 2 times a... Start Date: 05/28/21 Stop Date: 05/23/22 Status: Ordered albuterol 0.083% inhalation solution 3 mL = 2.5 mg, Inhalation, Every 6 hours, PRN for wheezing, Dx: COPD J44.9, # 60 each, 2 Refills, Maintenance, 06/02/21 11:29:00 EDT, Solution, [facility], Partial fill upon patient request if the prescription is for a schedule II opio... Start Date: 06/02/21 Status: Ordered amitriptyline 100 mg oral tablet 1.5 tablet = 150 mg, By Mouth, Daily at bedtime, # 135 tablet, 3 Refills, Maintenance, 06/02/21 11:36:00 EDT, Tablet, [facility], 177, cm, 06/02/21 11:35:00 EDT, Height, 108, kg, 05/24/21 19:44:00 EDT, Dry Weight Start Date: 06/02/21 Stop Date: 05/28/22 Status: Ordered amLODIPine 10 mg oral tablet 10 mg, 1, tablet, By Mouth, Daily, # 90 tablet, Refills 3, Tot. Refills 3, Maintenance, 06/02/21 11:36:00 EDT, Route to Pharmacy Electronically, [facility], 177, cm, 06/02/21 11:35:00EDT, Height, 108, kg, 05/24/21 19:44:00 EDT, Dry We... Start Date: 06/02/21 Stop Date: 05/28/22 Status: Ordered atorvastatin 20 mg oral tablet 1 tablet = 20 mg, By Mouth, Daily, # 90 tablet, 1 Refills, Maintenance, 07/26/21 13:55:00 EDT, Tablet, [facility], 177, cm, 06/02/21 11:35:00 EDT, [...] Refills, Maintenance, 09/29/20 14:40:00 EST, ER Tablet, [facility], increase in dose, 167, cm, 01/14/20 9:59:00 EDT, Height Start Date: 09/29/20 Stop Date: 09/24/21 Status: Ordered busPIRone 10 mg oral tablet 10 mg, 1, tablet, By Mouth, 2 times a day, # 180 tablet, Refills 3, Tot. Refills 3, Maintenance, 07/07/20 12:31:00 EDT, Route to Pharmacy Electronically, [facility], 167, cm, 209:59:00 EDT, Height Start Date: 07/07/20 Stop Date: 07/02/21 Status: Ordered cetirizine 10 mg oral tablet 1 tablet = 10 mg, By Mouth, Daily, PRN for allergy symptoms, # 30 tablet, 2 Refills, Maintenance, 06/01/21 14:45:00 EDT, Tablet, [facility], 177, cm, 05/26/21 12:02:00 EDT, [...] Compound Start Date: 10/02/17 Status: Ordered EpiPen 2-Bnoilla 0.3 mg injectable kit = 0.3 mg, Intramuscular, Once, PRN for anaphylaxis (severe allergy), # 1 kit, 1 Refills, Soft Stop,04/16/20 10:16:00 EDT, [facility], 167, cm, 01/14/20 9:59:00 EDT, Height Start Date: 04/16/20 Status: Ordered FLUoxetine 20 mg oral capsule 3, capsule, By Mouth, Daily, # 270 capsule, Refills 0, Tot. Refills 0, Maintenance, 06/01/21 17:20:00 EDT, Route to Pharmacy Electronically, [facility], 177, cm, 05/26/21 12:02:00 EDT, Height, [...] 06/02/21 11:36:00 EDT, Route to Pharmacy Electronically, [facility], lower dose, 177, cm, 06/02/21 11:35:00 EDT, Height, 108, kg, 05/24/21 19:44:00... Start Date: 06/02/21 Stop Date: 05/28/22 Status: Ordered Mapap Arthritis Pain 650 mg oral tablet, extended release See Instructions, TAKE 2 TABLETS BY MOUTH EVERY 8 HOURS NEEDED FOR PAIN FOR 30 DAYS, # 90 tablet, 5 Refills, Acute, [facility], 167, cm, 01/14/20 9:59:00 EDT, Height [...] 28 DAYS, # 56tablet, 0 Refills, Maintenance, 08/02/21 15:57:00 EDT, [facility], Pt requests an early refill for travel, 177, cm, 06/02/21 11:35:00 E... Start Date: 08/02/21 Status: Ordered Periwash Perineal cleaning solution Periwash [...] 12/19/21 11:01:00 EST, 06/22/21 11:01:00 EDT, Aerosol, [facility], replaces proair, 177, cm, 06/02/21 11:35:00 EDT, Height, 108, kg, 2... Start Date: 06/22/21 Stop Date: 12/19/21 Status: Ordered Zofran 4 mg oral tablet 1 tablet = 4 mg, By Mouth, Every 8 hours, PRN Nausea & Vomiting, # 12 tablet, 0 Refills, Acute 06/09/22 10:43:00 EDT, 06/09/21 10:43:00 EDT, Tablet, [facility], Partial fill upon patient request if the prescription is for a schedule II... Start Date: 06/09/21 Stop Date: 06/09/22 Status: Ordered zolpidem 10 mg oral tablet 1 tablet, By Mouth, Daily at bedtime, PRN NEEDED FOR INSOMNIA, # 28 tablet, 0 Refills, Acute 08/30/21 15:58:00 EDT, 08/02/21 15:57:00 EDT, [facility], Pt requests an early refill for travel, 177, cm, 06/02/21 11:35:00 EDT, Height, 1... 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
--- OUTSIDE RECORDS SUMMARY | 2023-12-11 08:22 | XMS_ITS | Continuity of Care Document ---
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 Role Phone Demario Nassar MD Primary Care Physician Encounter [facility] [place] Date(s): 10/12/20 - 11/11/20 [facility] [address] [place], [place] [address] Allergies, Adverse Reactions, Alerts Substance [...] influenza virus vaccine, inactivated 7 07/06/12 Gi ycn influenza virus vaccine, inactivated 07/06/11 Give n Typhoid Vaccine, Inactivated 11/19/19 Given Hepatitis A Adult Vaccine 11/19/19 Given tetanus-diphtheria toxoids (Td) 04/23/19 Given tetanus-diphtheria toxoids (Td) 8 11/27/96 Given pneumococcal 23-valent vaccine 9 01/22/19 Given diphtheria-tetanus toxoids (DT) 10 03/19/09 Given Influenza Virus Vaccine (oldterm) 11 10/08/07 Give n 1Result Comment: [facility]: [id number] 2Result Comment: [id number] given w/out incident 3Result Comment: [08/17/2018] [facility] [id number] 4Result Comment: [08/31/2017] given w/out incident [facility]: [id number] 5Result Comment: [08/21/2014] given w/o incident...AA 6Result Comment: [07/25/2013] given w/out incident 7Admin Note: vis sheet given. 8Admin Note: historial data 9Result Comment: [id number] 10Admin Note: mass bio 11Admin Note: sanofi [...] each, 3 Refills,Maintenance, 04/16/20 10:16:00 EDT, Aerosol, [facility], replaces Rx for symbicort not covered by her insurance, 2 puffs Inhalation 2... Start Date: 04/16/20 Stop Date: 04/11/21 Status: Ordered amitriptyline 100 mg oral tablet 1.5 tablet = 150 mg, By Mouth, Daily at bedtime, # 135 tablet, 3 Refills, Maintenance, 04/16/20 10:16:00 EDT, Tablet, [facility]., 167, cm, 01/14/20 9:59:00 EDT, Height Start Date: 04/16/20 Stop Date: 04/11/21 Status: Ordered amLODIPine 10 mg oral tablet 10 mg, 1, tablet, By Mouth, Daily, # 90 tablet, Refills 3, Tot. Refills 3, Maintenance, 04/16/20 10:16:00 EDT, Route to Pharmacy Electronically, [facility], 167, cm, 01/14/20 9:59:00 EDT, Height [...] 3 Refills, Maintenance, 05/11/20 9:45:00 EDT, Tablet, [facility], 167, cm, 01/14/20 9:59:00 EDT, Height Start Date: 05/11/20 Stop Date: 05/06/21 Status: Ordered buPROPion 300 mg/24 hours (XL) oral tablet, extended release 1 tablet = 300 mg, By Mouth, Daily, # 90 tablet, 3 Refills, Maintenance, 09/29/20 14:40:00 EST, ER Tablet, [facility], increase in dose, 167, cm, 01/14/20 9:59:00 EDT, Height Start Date: 09/29/20 Stop Date: 09/24/21 Status: Ordered busPIRone 10 mg oral tablet 10 mg, 1, tablet, By Mouth, 2 times a day, # 180 tablet, Refills 3, Tot. Refills 3, Maintenance, 07/07/20 12:31:00 EDT, Route to Pharmacy Electronically, [facility], 167, cm, 209:59:00 EDT, Height Start Date: 07/07/20 Stop Date: 07/02/21 Status: Ordered cetirizine 10 mg oral tablet 1 tablet = 10 mg, By Mouth, Daily, PRN for allergy symptoms, # 30 tablet, 8 Refills, Maintenance, 09/01/20 17:26:00 EST, Tablet, [facility], 167, cm, 01/14/20 9:59:00 EDT, Height Start Date: 09/01/20 Stop Date: 05/29/21 Status: Ordered chlorthalidone 25 mg oral tablet 25 mg, 1, tablet, By Mouth, Daily, # 90 tablet, Refills 3, Tot. Refills 3, Maintenance, 04/16/20 10:15:00 EDT, Route to Pharmacy Electronically, [facility], replaces hydrochlorothiazide, 167, cm, 01/14/20 9:59:00 [...] kit, 1 Refills, Soft Stop,04/16/20 10:16:00 EDT, [facility], 167, cm, 01/14/20 9:59:00 EDT, Height Start Date: 04/16/20 Status: Ordered FLUoxetine 20 mg oral capsule 3, capsule, By Mouth, Daily, # 270 capsule, Refills 3, Tot. Refills 0, Maintenance, 02/21/20 15:09:00 EDT, Route to Pharmacy Electronically, [facility], 167, cm, 01/14/20 9:59:00 EDT, [...] 01/14/20 10:17:00 EDT, [facility], [facility] dose, 167, cm, 01/14/20 9:59:00 EDT, Height Start Date: 01/14/20 Stop Date: 01/08/21 Status: Ordered Meclizine By Mouth, 3 times a day, 0 Refills, Maintenance, 12/14/18 15:25:26 EST Start Date: 12/14/18 Status: Ordered nystatin topical 379959 u/gm powder See Instructions, APPLY TOPICALLY TO AFFECTED AREA TWO TIMES A DAY FOR 14 DAYS, # 30 Gm, 0 Refills,Acute, [facility], 14, APPLY TOPICALLY TO AFFECTED AREA [...] # 56 tablet, 0 Refills, Hard Stop 11/24/20 17:05:00 EST, 10/27/20 17:05:00 EST, ER Tablet, [facility]... Start Date: 10/27/20 Stop Date: 11/24/20 Status: Ordered Periwash Perineal cleaning solution Periwash [...] Refills, Soft Stop, 04/06/21 11:36:00 EDT, [facility]erosol, [facility]air, 167, cm, 01/14/20 9:59:00 EDT, Height Start Date: 04/06/21 Stop Date: 10/03/21 Status: Ordered Ventolin HFA 108 mcg/inh inhalation aerosol with adapter 2 puffs, Inhalation, 4 times a day, PRN for wheezing, for 30 days, # 1 each, 5 Refills, Hard Stop 04/06/21 11:36:00 EDT, 10/08/20 11:36:00 EST, Aerosol, [facility]., replaces proair, 167, cm, 01/14/20 9:59:00 EDT, Height Start Date: 10/08/20 Stop Date: 04/06/21 Status: Ordered zolpidem 10 mg oral tablet 1 tablet = 10 mg, By Mouth, Daily at bedtime, PRN as needed for insomnia, # 28 tablet, 0 Refills, Soft Stop, 10/15/20 13:46:00 EST, [facility]., 167, cm, 01/14/20 9:59:00 EDT, Height Start Date: 10/15/20 Stop Date: 11/12/20 Status: Ordered Problem List Condition Effective Dates [...] (aunt)(Confirmed) Active FH: 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 (mom)(Confirmed) 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
--- OUTSIDE RECORDS SUMMARY | 2023-12-11 08:22 | XMS_ITS | Continuity of Care Document ---
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 Role Phone Cesario SCHULER, Demario Primary Care Physician Encounter [facility] Date(s): 04/27/20 - 05/27/20 [facility] [address] [place] [address]- [facility] Allergies, Adverse Reactions, Alerts Substance Reaction Severity [...] (oldterm) 10 10/08/07 Give n 1Result Comment: [id number] given w/out incident 2Result Comment: [08/17/2018] [facility] [id number] 3Result Comment: [08/31/2017] given w/out incident [facility]: [id number] 4Result Comment: [08/21/2014] given w/o incident...AA 5Result Comment: [07/25/2013] given w/out incident 6Admin Note: vis sheet given. 7Admin Note: historial data 8Result Comment: [id number] 9Admin Note: mass bio 10Admin Note: sanofi Medications acetaminophen 650 mg oral tablet, extended release 2 tablet = 1,300 mg, By Mouth, Every 8 hours, PRN as needed for pain, for 30 days, # 90 tablet, 5 Refills, Acute 10/18/20 17:11:00 EST, 04/21/20 17:11:00 EDT, ER Tablet, [facility] 167, cm, 01/14/20 9:59:00 EDT, Height Start Date: 04/21/20 Stop Date: 10/18/20 Status: Ordered Advair HFA 115 mcg / 21 mcg 2 puffs, Inhalation, 2 times a day, Dx: COPD rinse mouth and throat after use, # 3 each, 3 Refills,Maintenance, 04/16/20 10:16:00 EDT, Aerosol, [facility]., replaces Rx for symbicort not covered by her insurance, 2 puffs Inhalation 2... Start Date: 04/16/20 Stop Date: 04/11/21 Status: Ordered amitriptyline 100 mg oral tablet 1.5 tablet = 150 mg, By Mouth, Daily at bedtime, # 135 tablet, 3 Refills, Maintenance, 04/16/20 10:16:00 EDT, Tablet, [facility] 167, cm, 01/14/20 9:59:00 EDT, Height Start Date: 04/16/20 Stop Date: 04/11/21 Status: Ordered amLODIPine 10 mg oral tablet 10 mg, 1, tablet, By Mouth, Daily, # 90 tablet, Refills 3, Tot. Refills 3, Maintenance, 04/16/20 10:16:00 EDT, Route to Pharmacy Electronically, [facility] 167, cm, 01/14/20 9:59:00 EDT, Height Start Date: 04/16/20 Stop Date: 04/11/21 Status: Ordered atorvastatin 20 mg oral tablet 1 tablet = 20 mg, By Mouth, Daily, # 90 tablet, 3 Refills, Maintenance, 05/11/20 9:45:00 EDT, Tablet, [facility], 167, cm, 01/14/20 9:59:00 EDT, Height Start [...] 04/16/20 10:16:00 EDT, Route to Pharmacy Electronically, [facility], 167, cm, :59:00 EDT, Height Start Date: 04/16/20 Stop Date: 04/11/21 Status: Ordered chlorthalidone 25 mg oral tablet 25 mg, 1, tablet, By Mouth, Daily, # 90 tablet, Refills 3, Tot. Refills 3, Maintenance, 04/16/20 10:15:00 EDT, Route to Pharmacy Electronically, [facility], replaces hydrochlorothiazide, 167, cm, 01/14/20 9:59:00 EDT, [...] kit, 1 Refills, Soft Stop,04/16/20 10:16:00 EDT, [facility], 167, cm, 01/14/20 9:59:00 EDT, Height Start Date: 04/16/20 Status: Ordered FLUoxetine 20 mg oral capsule 3, capsule, By Mouth, Daily, # 270 capsule, Refills 3, Tot. Refills 0, Maintenance, 02/21/20 15:09:00 EDT, Route to Pharmacy Electronically, [facility], 167, cm, 01/14/20 9:59:00 EDT, Height Start [...] 01/14/20 10:17:00 EDT, Route to Pharmacy Electronically, [facility], lower dose, 167, cm, 01/14/20 9:59:00 EDT, Height Start Date: 01/14/20 Stop Date: 01/08/21 Status: Ordered Meclizine By Mouth, 3 times a day, 0 Refills, Maintenance, 12/14/18 15:25:26 EST Start Date: 12/14/18 Status: Ordered nystatin topical 097182 u/gm powder See Instructions, APPLY TOPICALLY TO AFFECTED AREA TWO TIMES A DAY FOR 14 DAYS, # 30 Gm, 0 Refills,Acute, [facility], 14, APPLY TOPICALLY TO AFFECTED AREA [...] 15:35:00 EDT, 05/12/20 15:35:00 EDT, [facility] Tablet, [facility] Start Date: 05/12/20 Stop Date: 06/09/20 [...] Refills, Soft Stop, 01/14/20 10:16:00 EDT, [facility]ol, [facility]air, 167, cm, 01/14/20 9:59:00 EDT, Height Start Date: 01/14/20 Stop Date: 07/12/20 Status: Ordered zolpidem 10 mg oral tablet 1 tablet = 10 mg, By Mouth, Daily at bedtime, PRN as needed for insomnia, # 28 tablet, 0 Refills, Soft Stop, 05/26/20 8:24:00 EDT, [facility] 167, cm, 01/14/20 9:59:00 EDT, Height Start Date: 05/26/20 Stop Date: 06/23/20 Status: Ordered Problem List Condition Effective Dates [...]
--- OUTSIDE RECORDS SUMMARY | 2023-12-11 08:22 | XMS_ITS | Continuity of Care Document ---
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 Name Role Phone Demario Nassar MD Primary Care Physician Encounter [facility] [place] Date(s): 02/12/20 - 02/22/20 [facility] [address] [place] [address]- [facility] Attending Physician: Admhaider, Ar8 Admitting Physician: Admtr, Ar8 Referring Physician: Admtr, Ar8 Allergies, Adverse Reactions, Alerts [...] (oldterm) 10 10/08/07 Give n 1Result Comment: [id number] given w/out incident 2Result Comment: [08/17/2018] [facility] 45831-936-61 3Result Comment: [08/31/2017] given w/out incident [facility]: [id number] 4Result Comment: [08/21/2014] given w/o incident...AA 5Result Comment: [07/25/2013] given w/out incident 6Admin Note: vis sheet given. 7Admin Note: historial data 8Result Comment: [id number] 9Admin Note: mass bio 10Admin Note: sanofi Medications Advair HFA 115 mcg / 21 mcg 2 puffs, Inhalation, 2 times a day, Dx: COPD rinse mouth and throat after use, # 1 each, 12 Refills, Maintenance, 04/23/19 10:58:46 EDT, Aerosol, replaces Rx for symbicort not covered by her insurance, 2 puffs Inhalation 2 times a day,x30 days,Instr:... Start Date: 04/23/19 Stop Date: 05/17/20 Status: Ordered amitriptyline 100 mg oral tablet 1.5 tablet = 150 mg, By Mouth, Daily at bedtime, # 45 tablet, 11 Refills, Maintenance, 04/23/19 10:59:49 EDT, Tablet Start Date: 04/23/19 Stop Date: 04/17/20 Status: Ordered amLODIPine 10 mg oral tablet 10 mg, 1, tablet, By Mouth, Daily, # 90 tablet, Refills 3, Tot. Refills 3, Maintenance, 04/23/19 10:58:48 EDT, Route to Pharmacy Electronically, [id number], [facility] Start Date: 04/23/19 Stop Date: 04/17/20 Status: Ordered atorvastatin 20 mg oral tablet 1 tablet = 20 mg, By Mouth, Daily, # 90 tablet, 3 Refills, Maintenance, 07/23/19 11:35:27 EDT, Tablet Start Date: 07/23/19 Stop Date: 07/17/20 Status: Ordered buPROPion 300 mg/24 hours (XL) [...] tablet, Refills 3, Tot. Refills 3, Maintenance, 04/15/19 17:12:39 EDT, Route to Pharmacy Electronically, [id number], [facility] Start Date: 04/15/19 Stop Date: 04/09/20 Status: Ordered CPAP Supplies - Tubing, Filter, [...] allergy), # 1 kit, 1 Refills, Soft Stop,04/23/19 10:58:58 EDT Start Date: 04/23/19 Status: Ordered FLUoxetine 20 mg oral capsule 3, capsule, By Mouth, Daily, # 270 capsule, Refills 3, Tot. Refills 0, Maintenance, 02/21/20 15:09:00 EDT, [facility] 167, cm, 01/14/20 9:59:00 EDT, Height Start [...] Pharmacy Electronica... Start Date: 10/07/19 Status: Ordered hydrochlorothiazide 25 mg oral tablet 25 mg, 1, tablet, By Mouth, Daily, # 90 tablet, Refills 3, Tot. Refills 3, Maintenance, 01/14/20 10:17:00 EDT, Route to Pharmacy Electronically, [facility], 167, cm, 01/14/20 9:59:00 EDT, Height Start Date: 01/14/20 Stop Date: 01/08/21 Status: Ordered losartan 50 mg oral tablet 50 mg, 1, tablet, By Mouth, Daily, # 90 tablet, Refills 3, Tot. Refills 3, Maintenance, 01/14/20 10:17:00 EDT, Route to Pharmacy Electronically, [facility], lower dose, 167, cm, 01/14/20 9:59:00 EDT, Height Start Date: 01/14/20 Stop Date: 01/08/21 Status: Ordered Meclizine By Mouth, 3 times a day, 0 Refills, Maintenance, 12/14/18 15:25:26 EST Start Date: 12/14/18 Status: Ordered nystatin topical 509858 u/gm powder See Instructions, APPLY TOPICALLY TO AFFECTED AREA TWO TIMES A DAY FOR 14 DAYS, # 30 Gm, 0 Refills,Acute, [facility], 14, APPLY TOPICALLY TO AFFECTED AREA TWO [...] # 56 tablet, 0 Refills, Hard Stop 03/16/20 15:25:00 EDT, 02/17/20 15:25:00 EDT, ER Tablet, [facility]... Start Date: 02/17/20 Stop Date: 03/16/20 Status: Ordered Protonix 40 mg oral delayed release tablet 1 tablet = 40 mg, By Mouth, Daily, # 90 tablet, 3 Refills, Maintenance, 04/23/19 10:58:45 EDT, EC Tablet Start Date: 04/23/19 Stop Date: 04/17/20 Status: Ordered Ventolin HFA 108 mcg/inh inhalation aerosol with adapter 2 puffs, Inhalation, 4 times a day, PRN for wheezing, # 1 each, 5 Refills, Soft Stop, 01/14/20 10:16:00 EDT, [facility]ol[facility] replaces proair, 167, cm, 01/14/20 9:59:00 EDT, Height Start Date: 01/14/20 Stop Date: 07/12/20 Status: Ordered Zithromax Z-Bonilla 250 mg oral tablet See Instructions, as directed on package labeling, # 1 pack/packet, 0 Refills, Maintenance, 01/14/20 10:15:00 EDT, [facility] 167, cm, 01/14/20 9:59:00 EDT, Height Start Date: 01/14/20 Status: Ordered zolpidem 10 mg oral tablet 1 tablet = 10 mg, By Mouth, Daily at bedtime, PRN as needed for insomnia, # 28 tablet, 0 Refills, Soft Stop, 01/29/20 12:56:00 EDT, [facility]., 167, cm, 01/14/20 9:59:00 EDT, Height Start Date: 01/29/20 Stop Date: 02/26/20 Status: Ordered Problem List Condition Effective Dates [...] mellitus (aunt)(Confirmed) Active FH: 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 (mom)(Confirmed) 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
--- OUTSIDE RECORDS SUMMARY | 2023-12-11 08:22 | XMS_ITS | Continuity of Care Document ---
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 Name Role Phone Demario Nassar MD Primary Care Physician Encounter [facility] [place] Date(s): 03/15/21 - 04/14/21 [facility] [address] [place], [place] [address] Allergies, Adverse Reactions, Alerts Substance Reaction [...] (oldterm) 11 10/08/07 Give n 1Result Comment: [facility]: [id number] 2Result Comment: [id number] given w/out incident 3Result Comment: [08/17/2018] [facility] 23255-061-70 4Result Comment: [08/31/2017] given w/out incident [facility]: [id number] 5Result Comment: [08/21/2014] given w/o incident...AA 6Result Comment: [07/25/2013] given w/out incident 7Admin Note: vis sheet given. 8Admin Note: historial data 9Result Comment: [id number] 10Admin Note: mass bio 11Admin Note: sanofi [...] each, 3 Refills,Maintenance, 04/16/20 10:16:00 EDT, Aerosol, [facility], replaces Rx for symbicort not covered by her insurance, 2 puffs Inhalation 2... Start Date: 04/16/20 Stop Date: 04/11/21 Status: Ordered amitriptyline 100 mg oral tablet 1.5 tablet = 150 mg, By Mouth, Daily at bedtime, # 135 tablet, 3 Refills, Maintenance, 04/16/20 10:16:00 EDT, Tablet, [facility] 167, cm, 01/14/20 9:59:00 EDT, Height Start Date: 04/16/20 Stop Date: 04/11/21 Status: Ordered amLODIPine 10 mg oral tablet 10 mg, 1, tablet, By Mouth, Daily, # 90 tablet, Refills 3, Tot. Refills 3, Maintenance, 04/16/20 10:16:00 EDT, Route to Pharmacy Electronically, [facility], 167, cm, 01/14/20 9:59:00 EDT, [...] 3 Refills, Maintenance, 05/11/20 9:45:00 EDT, Tablet, [facility] 167, cm, 01/14/20 9:59:00 EDT, Height [...] Refills, Maintenance, 09/29/20 14:40:00 EST, ER Tablet, [facility], increase in dose, 167, cm, 01/14/20 9:59:00 EDT, Height Start Date: 09/29/20 Stop Date: 09/24/21 Status: Ordered busPIRone 10 mg oral tablet 10 mg, 1, tablet, By Mouth, 2 times a day, # 180 tablet, Refills 3, Tot. Refills 3, Maintenance, 07/07/20 12:31:00 EDT, Route to Pharmacy Electronically, [facility], 167, cm, 209:59:00 EDT, Height Start Date: 07/07/20 Stop Date: 07/02/21 Status: Ordered cetirizine 10 mg oral tablet 1 tablet = 10 mg, By Mouth, Daily, PRN for allergy symptoms, # 30 tablet, 8 Refills, Maintenance, 09/01/20 17:26:00 EST, Tablet, [facility], 167, cm, 01/14/20 9:59:00 EDT, Height Start Date: 09/01/20 Stop Date: 05/29/21 Status: Ordered chlorthalidone 25 mg oral tablet 25 mg, 1, tablet, By Mouth, Daily, # 90 tablet, Refills 3, Tot. Refills 3, Maintenance, 04/16/20 10:15:00 EDT, Route to Pharmacy Electronically, [facility], replaces hydrochlorothiazide, 167, cm, 01/14/20 [...] kit, 1 Refills, Soft Stop,04/16/20 10:16:00 EDT, [facility], 167, cm, 01/14/20 9:59:00 EDT, Height Start Date: 04/16/20 Status: Ordered FLUoxetine 20 mg oral capsule 3, capsule, By Mouth, Daily, # 270 capsule, Refills 3, Tot. Refills 0, Maintenance, 02/21/20 15:09:00 EDT, Route to Pharmacy Electronically, [facility], 167, cm, 01/14/20 9:59:00 [...] 01/14/20 10:17:00 EDT, Route to Pharmacy Electronically, [facility], lower dose, 167, cm, 01/14/20 9:59:00 EDT, Height Start Date: 01/14/20 Stop Date: 01/08/21 Status: Ordered Meclizine By Mouth, 3 times a day, 0 Refills, Maintenance, 12/14/18 15:25:26 EST Start Date: 12/14/18 Status: Ordered nystatin topical 628382 u/gm powder See Instructions, APPLY TOPICALLY TO AFFECTED AREA TWO TIMES A DAY FOR 14 DAYS, # 30 Gm, 1 Refills,Physician Stop 04/16/21 17:58:00 EDT, 03/16/21 17:58:00 EDT, [facility], 14, APPLY TOPICALLY TO AFFECTED AREA TWO TIMES A DAY FOR 14 DA... Start Date: 03/16/21 Stop Date: 04/16/21 Status: Ordered OxyCONTIN 15 mg oral tablet, extended release See Instructions, TAKE 1 TABLET BY MOUTH EVERY 12 HOURS NEEDED FOR SEVERE PAIN FOR 28 DAYS, # 56tablet, 0 Refills, Maintenance, 03/18/21 17:43:00 EDT, [facility], 167, cm, 01/14/20 9:59:00 EDT, Height Start Date: 03/18/21 Status: Ordered Periwash Perineal cleaning solution Periwash [...] # 1 each, 5 Refills, Hard Stop 08/02/21 17:29:00 EDT, 02/03/21 17:29:00 EDT, Aerosol, [facility] replaces proair, 167, cm, 01/14/20 9:59:00 EDT, Height Start Date: 02/03/21 Stop Date: 08/02/21 Status: Ordered zolpidem 10 mg oral tablet 1 tablet = 10 mg, By Mouth, Daily at bedtime, PRN as needed for insomnia, # 28 tablet, 0 Refills, Soft Stop, 04/08/21 15:18:00 EDT, [facility], 167, cm, 01/14/20 9:59:00 EDT, Height Start Date: 04/08/21 Stop Date: 05/06/21 Status: Ordered Problem List Condition Effective Dates [...] mellitus (aunt)(Confirmed) Active FH: 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 (mom)(Confirmed) Active 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
--- OUTSIDE RECORDS SUMMARY | 2023-12-11 08:22 | XMS_ITS | Continuity of Care Document ---
Author Name Unknown Organization [facility] Address [address] [place] [address]- Care Team Providers Care Line Assigner Name Role Phone Cesario SCHULER, Demario Primary Care Physician Encounter [facility] Date(s): 01/13/22 - 02/12/22 [facility] [address] [place], [place] [address] Allergies, Adverse Reactions, Alerts Substance Reaction [...] (oldterm) 12 10/08/07 Give n 1Result Comment: [id number] given w/out incident 2Result Comment: [facility]: 01962-312-11 3Result Comment: [id number] given w/out incident 4Result Comment: [08/17/2018] [facility] 10826-017-80 5Result Comment: [08/31/2017] given w/out incident [facility]: [id number] 6Result Comment: [08/21/2014] given w/o incident...AA 7Result Comment: [07/25/2013] given w/out incident 8Admin Note: vis sheet given. 9Admin Note: historial data 10Result Comment: [id number] 11Admin Note: mass bio 12Admin Note: sanofi [...] EVERY USE., # 36 Gm, 3 Refills, [facility], 90, INHALE 2 PUFFS BY MOUTH TWO TIMES A DAY RINSE MOUTH AFTER EVERY USE., 177, cm, 10/19/21 10:00:00 EST, Height, 108, kg... Start Date: 12/21/21 Status: Ordered amitriptyline 100 mg oral tablet 1.5 tablet = 150 mg, By Mouth, Daily at bedtime, # 135 tablet, 3 Refills, Maintenance, 06/02/21 11:36:00 EDT, Tablet, [facility] 177, cm, 06/02/21 11:35:00 EDT, Height, 108, kg, 05/24/21 19:44:00 EDT, Dry Weight Start Date: 06/02/21 Stop Date: 05/28/22 Status: Ordered amLODIPine 10 mg oral tablet 10 mg, 1, tablet, By Mouth, Daily, # 90 tablet, Refills 1, Tot. Refills 1, Maintenance, 05/28/22 11:36:00 EDT, Route to Pharmacy Electronically, [facility], 177, cm, 10/19/21 10:00:00EST, Height, 108, [...] Refills, Maintenance, 09/16/21 9:24:00 EST, ER Tablet, [facility], increase in dose, 177, cm, 06/02/21 11:35:00 EDT, Height, 108, kg, 05/24/21 19:44:00 EDT, Dry Weight Start Date: 09/16/21 Stop Date: 09/11/22 Status: Ordered busPIRone 10 mg oral tablet 10 mg, 1, tablet, By Mouth, 2 times a day, # 180 tablet, Refills 3, Tot. Refills 3, Maintenance, 09/16/21 9:24:00 EST, Route to Pharmacy Electronically, [facility], 177, cm, 06/02/21 11:35:00 EDT, Height, [...] 06/02/21 11:36:00 EDT, Route to Pharmacy Electronically, [facility], lower dose, 177, cm, 06/02/21 11:35:00 EDT, Height, 108, kg, 05/24/21 19:44:00... Start Date: 06/02/21 Stop Date: 05/28/22 Status: Ordered Mapap Arthritis Pain 650 mg oral tablet, extended release 2 tablet, By Mouth, Every 8 hours, PRN NEEDED FOR PAIN FOR, for 30 days, # 90 tablet, 9 Refills,Physician Stop 10/17/22 9:00:00 EST, 12/21/21 9:00:00 EST, [facility], 177, cm, 12/21/21 8:59:00 EST, Height, [...] 56tablet, 0 Refills, Maintenance, 01/18/22 7:46:00 EDT, [facility], 177, cm, :59:00 EST, Height, 108, [...] 01/11/22 15:16:00 EDT, Route to Pharmacy Electronically, [facility], Partial fill uponpatient request if the prescription is for a schedu... Start Date: 01/11/22 Stop Date: 07/10/22 Status: Ordered Ventolin HFA 108 mcg/inh inhalation aerosol with adapter 2 puffs, Inhalation, 4 times a day, PRN NEEDED FOR WHEEZING, # 18 Gm, 6 Refills, 12/28/21 11:00:00 EST, [facility] 177, cm, 12/21/21 8:59:00 EST, Height, 108, kg, 05/24/21 19:44:00 EDT, Dry Weight Start Date: 12/28/21 Status: Ordered Zofran 4 mg oral tablet 1 tablet = 4 mg, By Mouth, Every 8 hours, PRN Nausea & Vomiting, # 12 tablet, 0 Refills, Acute 06/09/22 10:43:00 EDT, 06/09/21 10:43:00 EDT, Tablet, [facility]., Partial fill upon patient request if [...] (aunt)(Confirmed) Active FH: 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 (mom)(Confirmed) 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
--- OUTSIDE RECORDS SUMMARY | 2023-12-11 08:22 | XMS_ITS | Continuity of Care Document ---
Author Name Unknown Organization [facility] Address [address], [address] [place] [address]- Care Team Providers Care Deputy Grand Jury Name Role Phone Cesario SCHULER, Demario Primary Care Physician En[place] [facility] [place](s): 12/05/22 - 03/25/23 [facility] [address] [place], [place] [address] Attending Physician: Not on Staff, Attending MD [...] 08/21/14 Gi cyn influenza virus vaccine, inactivated 07/25/13 Gi cyn influenza virus vaccine, inactivated [...] Reason: Other : not documented 2Result Comment: [id number] given w/out incident 3Result Comment: [id number] given w/out incident 4Result Comment: [facility]: [id number] 5Result Comment: [id number] given w/out incident 6Result Comment: [08/17/2018] [facility] [id number] 7Result Comment: [08/31/2017] given w/out incident [facility]: [id number] 8Result Comment: [08/21/2014] given w/o incident...AA 9Result Comment: [07/25/2013] given w/out incident 10Admin Note: vis sheet given. 11Admin Note: historial data 12Result Comment: [id number] 13Admin Note: mass bio 14Admin Note: sanofi [...] Gm, 1 Refills, Maintenance, 01/06/23 15:18:00 EST, [facility], 90, INHALE 2 PUFFS BY MOUTH TWO TIMES A DAY RINSE MOUTH AFTER EVERYUSE., 167, cm, 12/05/22 10:53:00 EST, Height, 114.4... Start Date: 01/06/23 Status: Ordered All Day Allergy 10 mg oral tablet 1 tablet, By Mouth, Daily, PRN NEEDED FOR ALLERGY SYMPTOMS, # 30 tablet, 6 Refills, Maintenance,11/08/22 15:08:00 EST, [facility], 177, cm, 12/21/21 8:59:00 EST, Height, 114.4, kg, 02/14/22 21:57:00 EDT, Dry Weight Start Date: 11/08/22 Status: Ordered amLODIPine 10 mg oral tablet 10 mg, 1, tablet, By Mouth, Daily, # 90 tablet, Refills 3, Tot. Refills 3, Maintenance, 11/25/22 15:31:00 EST, Route to Pharmacy Electronically, [facility], 177, cm, 12/21/21 8:59:00 EST, Height, 114.4, kg, 02/14/22 21:57:00 EDT, Dry W... Start Date: 11/25/22 Stop Date: 11/20/23 Status: Ordered atorvastatin 40 mg oral tablet 1 tablet, By Mouth, Daily, # 90 tablet, 1 Refills, Maintenance, 02/03/23 16:11:00 EDT, [facility], 167, cm, 12/05/22 10:53:00 EST, Height, [...] Refills, Maintenance, 10/21/22 12:33:00 EST, ER Tablet, [facility], increase in dose, 177, cm, 12/21/21 [...] 08/02/22 15:37:00 EDT, Route to Pharmacy Electronically, [facility], replaces spironolactone, 177, cm, 12/21/21 8:59:00 [...] (SEVERE ALLERGY), # 2 Unknown, 1 Refills, [facility], 177, cm, 06/02/21 11:35:00 EDT, Height, 108, kg, 05/24/21 19:44:00 EDT, Dry Weight Start Date: 09/08/21 Status: Ordered gabapentin 300 mg oral capsule See Instructions, TAKE 3 CAPSULES BY MOUTH IN THE MORNING, 3 CAPSULES EARLY PM AND 4 CAPSULES AT BEDTIME., # 900 capsule, Refills 3, Maintenance, 12/23/22 13:41:00 EST, Instructions Replace Required Details, Route to Pharmacy Electronically, [facility]... Start Date: 12/23/22 Status: Ordered gloves, large gloves, large, See Instructions, # 50 each, Refills 11, Tot. Refills 11, Maintenance, use when handling soiled linen Dx: N39.4, 03/20/20 17:02:00 EDT, Supply Start Date: 03/20/20 Status: Ordered losartan 100 mg oral tablet 1 tablet = 100 mg, By Mouth, Daily, # 90 tablet, 4 Refills, Maintenance, 03/31/22 15:03:00 EDT, Tablet, [facility], increase in dose, 177, cm, 12/21/21 8:59:00 EST, Height, 114.4, kg,02/14/22 21:57:00 EDT, Dry Weight Start Date: 03/31/22 Stop Date: 06/24/23 Status: Ordered Mapap Arthritis Pain 650 mg oral tablet, extended release 2 tablet, By Mouth, Every 8 hours, PRN NEEDED FOR PAIN, # 90 tablet, 11 Refills, Maintenance, 08/12/22 10:25:00 EDT, [facility], 177, cm, 12/21/21 8:59:00 EST, Height, [...] 56 tablet, 0 Refills, Maintenance,03/14/23 9:10:00 EDT, [facility], resent, 167, cm, 12/05/22 10:53:00 EST, Height, [...] Gm, 5 Refills, Maintenance, 12/15/22 14:09:00 EST, [facility] 167, cm, 12/05/22 10:53:00 EST, [...] Confirmed Active FH: 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 (mom) Confirmed Active detention current use of opiate analgesic Confirmed Active [...] Team Personnel Name: Ermelinda Rice RN Position: [facility] RN Member Role: Primary Care Nurse Name: Tri Sebastian RN Position: S RN Member Role: Primary Care Nurse Name: Demario Nassar MD Position: [facility] Physician - Primary Care Member Role: PCP Address: Address: [address] [place] [address]- Care Team Related Persons Name: EPIFANIO STYLES Address: [address] [place] [address] Name: DEUCE SEE
--- OUTSIDE RECORDS SUMMARY | 2023-12-11 08:22 | XMS_ITS | Continuity of Care Document ---
Author Name Unknown Organization [facility] Address [address] [place] [address]- Care Team Providers Care Self Pay Collector Name Role Phone Demario Nassar MD Primary Care Physician [facility] Date(s): 07/07/20 - 08/06/20 [facility] [address] [place] [address]- [facility] Allergies, Adverse Reactions, Alerts Substance Reaction Severity [...] (oldterm) 10 10/08/07 Give n 1Result Comment: [id number] given w/out incident 2Result Comment: [08/17/2018] [facility] [id number] 3Result Comment: [08/31/2017] [facility]: [id number] 4Result Comment: [08/21/2014] given w/o incident...AA 5Result Comment: [07/25/2013] given w/out incident 6Admin Note: vis sheet given. 7Admin Note: historial data 8Result Comment: [id number] 9Admin Note: mass bio 10Admin Note: sanofi Medications acetaminophen 650 mg oral tablet, extended release 2 tablet = 1,300 mg, By Mouth, Every 8 hours, PRN as needed for pain, for 30 days, # 90 tablet, 5 Refills, Acute 10/18/20 17:11:00 EST, 04/21/20 17:11:00 EDT, ER Tablet, [facility]., 167, cm, 01/14/20 9:59:00 EDT, Height Start Date: 04/21/20 Stop Date: 10/18/20 Status: Ordered Advair HFA 115 mcg / 21 mcg 2 puffs, Inhalation, 2 times a day, Dx: COPD rinse mouth and throat after use, # 3 each, 3 Refills,Maintenance, 04/16/20 10:16:00 EDT, Aerosol, [facility] replaces Rx for symbicort not covered by her insurance, 2 puffs Inhalation 2... Start Date: 04/16/20 Stop Date: 04/11/21 Status: Ordered amitriptyline 100 mg oral tablet 1.5 tablet = 150 mg, By Mouth, Daily at bedtime, # 135 tablet, 3 Refills, Maintenance, 04/16/20 10:16:00 EDT, Tablet, [facility] 167, cm, 01/14/20 9:59:00 EDT, Height Start Date: 04/16/20 Stop Date: 04/11/21 Status: Ordered amLODIPine 10 mg oral tablet 10 mg, 1, tablet, By Mouth, Daily, # 90 tablet, Refills 3, Tot. Refills 3, Maintenance, 04/16/20 10:16:00 EDT, Route to Pharmacy Electronically, [facility], 167, cm, 01/14/20 9:59:00 EDT, Height [...] 3 Refills, Maintenance, 05/11/20 9:45:00 EDT, Tablet, [facility], 167, cm, 01/14/20 9:59:00 EDT, Height [...] 07/07/20 12:31:00 EDT, Route to Pharmacy Electronically, [facility], 167, cm, 209:59:00 EDT, Height Start Date: 07/07/20 Stop Date: 07/02/21 Status: Ordered chlorthalidone 25 mg oral tablet 25 mg, 1, tablet, By Mouth, Daily, # 90 tablet, Refills 3, Tot. Refills 3, Maintenance, 04/16/20 10:15:00 EDT, Route to Pharmacy Electronically, [facility], replaces hydrochlorothiazide, 167, cm, 01/14/20 9:59:00 [...] kit, 1 Refills, Soft Stop,04/16/20 10:16:00 EDT, [facility], 167, cm, 01/14/20 9:59:00 EDT, Height Start Date: 04/16/20 Status: Ordered FLUoxetine 20 mg oral capsule 3, capsule, By Mouth, Daily, # 270 capsule, Refills 3, Tot. Refills 0, Maintenance, 02/21/20 15:09:00 EDT, Route to Pharmacy Electronically, [facility], 167, cm, 01/14/20 9:59:00 EDT, [...] 01/14/20 10:17:00 EDT, Route to Pharmacy Electronically, [facility], lower dose, 167, cm, 01/14/20 9:59:00 EDT, Height Start Date: 01/14/20 Stop Date: 01/08/21 Status: Ordered Meclizine By Mouth, 3 times a day, 0 Refills, Maintenance, 12/14/18 15:25:26 EST Start Date: 12/14/18 Status: Ordered nystatin topical 770373 u/gm powder See Instructions, APPLY TOPICALLY TO AFFECTED AREA TWO TIMES A DAY FOR 14 DAYS, # 30 Gm, 0 Refills,Acute, [facility], 14, APPLY TOPICALLY TO AFFECTED [...] # 56 tablet, 0 Refills, Hard Stop 09/01/20 12:26:00 EST, 08/04/20 12:26:00 EDT, ER Tablet, [facility]... Start Date: 08/04/20 Stop Date: 09/01/20 Status: Ordered Periwash Perineal cleaning solution Periwash [...] Refills, Soft Stop, 01/14/20 10:16:00 EDT, Aerosol, [facility], replaces proair, 167, cm, 01/14/20 9:59:00 EDT, Height Start Date: 01/14/20 Stop Date: 07/12/20 Status: Ordered zolpidem 10 mg oral tablet 1 tablet = 10 mg, By Mouth, Daily at bedtime, PRN as needed for insomnia, # 28 tablet, 0 Refills, Soft Stop, 07/21/20 12:37:00 EDT, [facility], 167, cm, 01/14/20 9:59:00 EDT, Height Start Date: 07/21/20 Stop Date: 08/18/20 Status: Ordered Problem List Condition Effective Dates [...] mellitus (aunt)(Confirmed) Active FH: 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 (mom)(Confirmed) 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
--- OUTSIDE RECORDS SUMMARY | 2023-12-11 08:22 | XMS_ITS | Continuity of Care Document ---
Author Name Unknown Organization [facility] Address [address] [place] [address]- Care Team Providers Care Orthopedic Shoe Maker Name Role Phone Demario Nassar MD Primary Care Physician Encounter [facility] Date(s): 03/22/23 - 04/21/23 [facility] [address] [place], [place] [address] Allergies, Adverse Reactions, Alerts Substance [...] Reason: Other : not documented 2Result Comment: [id number] given w/out incident 3Result Comment: [id number] given w/out incident 4Result Comment: [facility]: [id number] 5Result Comment: [id number] given w/out incident 6Result Comment: [08/17/2018] [facility] [id number] 7Result Comment: [08/31/2017] given w/out incident [facility]: [id number] 8Result Comment: [08/21/2014] given w/o incident...AA 9Result Comment: [07/25/2013] given w/out incident 10Admin Note: vis sheet given. 11Admin Note: historial data 12Result Comment: [id number] 13Admin Note: mass bio 14Admin Note: sanofi [...] Gm, 1 Refills, Maintenance, 01/06/23 15:18:00 EST, [facility], 90, INHALE 2 PUFFS BY MOUTH TWO TIMES A DAY RINSE MOUTH AFTER EVERYUSE., 167, cm, 12/05/22 10:53:00 EST, Height, 114.4... Start Date: 01/06/23 Status: Ordered All Day Allergy 10 mg oral tablet 1 tablet, By Mouth, Daily, PRN NEEDED FOR ALLERGY SYMPTOMS, # 30 tablet, 6 Refills, Maintenance,11/08/22 15:08:00 EST, [facility], 177, cm, 12/21/21 8:59:00 EST, Height, 114.4, kg, 02/14/22 21:57:00 EDT, Dry Weight Start Date: 11/08/22 Status: Ordered amLODIPine 10 mg oral tablet 10 mg, 1, tablet, By Mouth, Daily, # 90 tablet, Refills 3, Tot. Refills 3, Maintenance, 11/25/22 15:31:00 EST, Route to Pharmacy Electronically, [facility], 177, cm, 12/21/21 8:59:00 EST, Height, 114.4, kg, 02/14/22 21:57:00 EDT, Dry W... Start Date: 11/25/22 Stop Date: 11/20/23 Status: Ordered atorvastatin 40 mg oral tablet 1 tablet, By Mouth, Daily, # 90 tablet, 1 Refills, Maintenance, 02/03/23 16:11:00 EDT, [facility], 167, cm, 12/05/22 10:53:00 EST, Height, [...] Refills, Maintenance, 10/21/22 12:33:00 EST, ER Tablet, [facility], increase in dose, 177, cm, 12/21/21 [...] 08/02/22 15:37:00 EDT, Route to Pharmacy Electronically, [facility], replaces spironolactone, 177, cm, 12/21/21 8:59:00 [...] (SEVERE ALLERGY), # 2 Unknown, 1 Refills, [facility], 177, cm, 06/02/21 11:35:00 EDT, Height, 108, kg, 05/24/21 19:44:00 EDT, Dry Weight Start Date: 09/08/21 Status: Ordered gabapentin 300 mg oral capsule See Instructions, TAKE 3 CAPSULES BY MOUTH IN THE MORNING, 3 CAPSULES EARLY PM AND 4 CAPSULES AT BEDTIME., # 900 capsule, Refills 3, Maintenance, 12/23/22 13:41:00 EST, Instructions Replace Required Details, Route to Pharmacy Electronically, [facility] Start Date: 12/23/22 Status: Ordered gloves, large gloves, large, See Instructions, # 50 each, Refills 11, Tot. Refills 11, Maintenance, use when handling soiled linen Dx: N39.4, 03/20/20 17:02:00 EDT, Supply Start Date: 03/20/20 Status: Ordered losartan 100 mg oral tablet 1 tablet = 100 mg, By Mouth, Daily, # 90 tablet, 4 Refills, Maintenance, 03/31/22 15:03:00 EDT, Tablet, [facility], increase in dose, 177, cm, 12/21/21 8:59:00 EST, Height, 114.4, kg,02/14/22 21:57:00 EDT, Dry Weight Start Date: 03/31/22 Stop Date: 06/24/23 Status: Ordered Mapap Arthritis Pain 650 mg oral tablet, extended release 2 tablet, By Mouth, Every 8 hours, PRN NEEDED FOR PAIN, # 90 tablet, 11 Refills, Maintenance, 08/12/22 10:25:00 EDT, [facility], 177, cm, 12/21/21 8:59:00 EST, Height, [...] 56 tablet, 0 Refills, Maintenance,04/11/23 10:59:00 EDT, [facility] resent, 167, cm, 12/05/22 10:53:00 EST, Height, [...] Gm, 5 Refills, Maintenance, 12/15/22 14:09:00 EST, [facility], [facility], cm, 12/05/22 10:53:00 EST, Height, [...] Confirmed Active FH: 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 (mom) 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
--- OUTSIDE RECORDS SUMMARY | 2023-12-11 08:22 | XMS_ITS | Continuity of Care Document ---
Author Name Unknown Organization [facility] Address [address] [place] [address]- Care Team Providers Care Transfer Agent Name Role Phone Cesario SCHULER, Demario Primary Care Physician [facility] Date(s): 06/22/20 - 07/22/20 [facility] [address] [place] [address]- [facility] Allergies, Adverse Reactions, Alerts Substance Reaction Severity [...] (oldterm) 10 10/08/07 Give n 1Result Comment: [id number] given w/out incident 2Result Comment: [08/17/2018] [facility] [id number] 3Result Comment: [08/31/2017] given w/out incident [facility][note 3]: [id number] 4Result Comment: [08/21/2014] given w/o incident...AA 5Result Comment: [07/25/2013] given w/out incident 6Admin Note: vis sheet given. 7Admin Note: historial data 8Result Comment: [id number] 9Admin Note: mass bio 10Admin Note: sanofi Medications acetaminophen 650 mg oral tablet, extended release 2 tablet = 1,300 mg, By Mouth, Every 8 hours, PRN as needed for pain, for 30 days, # 90 tablet, 5 Refills, Acute 10/18/20 17:11:00 EST, 04/21/20 17:11:00 EDT, ER Tablet, [facility] 167, cm, 01/14/20 9:59:00 EDT, Height Start Date: 04/21/20 Stop Date: 10/18/20 Status: Ordered Advair HFA 115 mcg / 21 mcg 2 puffs, Inhalation, 2 times a day, Dx: COPD rinse mouth and throat after use, # 3 each, 3 Refills,Maintenance, 04/16/20 10:16:00 EDT, Aerosol, [facility]., replaces Rx for symbicort not covered by her insurance, 2 puffs Inhalation 2... Start Date: 04/16/20 Stop Date: 04/11/21 Status: Ordered amitriptyline 100 mg oral tablet 1.5 tablet = 150 mg, By Mouth, Daily at bedtime, # 135 tablet, 3 Refills, Maintenance, 04/16/20 10:16:00 EDT, Tablet, [facility] 167, cm, 01/14/20 9:59:00 EDT, Height Start Date: 04/16/20 Stop Date: 04/11/21 Status: Ordered amLODIPine 10 mg oral tablet 10 mg, 1, tablet, By Mouth, Daily, # 90 tablet, Refills 3, Tot. Refills 3, Maintenance, 04/16/20 10:16:00 EDT, Route to Pharmacy Electronically, [facility] 167, cm, 01/14/20 9:59:00 EDT, [...] 3 Refills, Maintenance, 05/11/20 9:45:00 EDT, Tablet, [facility], 167, cm, 01/14/20 9:59:00 EDT, Height [...] 07/07/20 12:31:00 EDT, Route to Pharmacy Electronically, [facility], 167, cm, 209:59:00 EDT, Height Start Date: 07/07/20 Stop Date: 07/02/21 Status: Ordered chlorthalidone 25 mg oral tablet 25 mg, 1, tablet, By Mouth, Daily, # 90 tablet, Refills 3, Tot. Refills 3, Maintenance, 04/16/20 10:15:00 EDT, Route to Pharmacy Electronically, [facility], replaces hydrochlorothiazide, 167, cm, 01/14/20 9:59:00 [...] kit, 1 Refills, Soft Stop,04/16/20 10:16:00 EDT, [facility], 167, cm, 01/14/20 9:59:00 EDT, Height Start Date: 04/16/20 Status: Ordered FLUoxetine 20 mg oral capsule 3, capsule, By Mouth, Daily, # 270 capsule, Refills 3, Tot. Refills 0, Maintenance, 02/21/20 15:09:00 EDT, Route to Pharmacy Electronically, [facility], 167, cm, 01/14/20 9:59:00 EDT, [...] 01/14/20 10:17:00 EDT, Route to Pharmacy Electronically, [facility], lower dose, 167, cm, 01/14/20 9:59:00 EDT, Height Start Date: 01/14/20 Stop Date: 01/08/21 Status: Ordered Meclizine By Mouth, 3 times a day, 0 Refills, Maintenance, 12/14/18 15:25:26 EST Start Date: 12/14/18 Status: Ordered nystatin topical [id number] u/gm powder See Instructions, APPLY TOPICALLY TO AFFECTED AREA TWO TIMES A DAY FOR 14 DAYS, # 30 Gm, 0 Refills,Acute, [facility], 14, APPLY TOPICALLY TO AFFECTED AREA [...] # 56 tablet, 0 Refills, Hard Stop 08/04/20 12:32:00 EDT, 07/07/20 12:32:00 EDT, ER Tablet, [facility]... Start Date: 07/07/20 Stop Date: 08/04/20 Status: Ordered Periwash Perineal cleaning solution Periwash [...] Refills, Soft Stop, 01/14/20 10:16:00 EDT, Aerosol, [facility] replaces proair, 167, cm, 01/14/20 9:59:00 EDT, Height Start Date: 01/14/20 Stop Date: 07/12/20 Status: Ordered zolpidem 10 mg oral tablet 1 tablet = 10 mg, By Mouth, Daily at bedtime, PRN as needed for insomnia, # 28 tablet, 0 Refills, Soft Stop, 07/21/20 12:37:00 EDT, 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
--- OUTSIDE RECORDS SUMMARY | 2023-12-11 08:22 | XMS_ITS | Continuity of Care Document ---
Author Name Unknown Organization [facility] Address [address] [place] [address]- Care Team Providers Care Sales And Leasing Agent Name Role Phone Demario Nassar MD Primary Care Physician [facility]counter [facility] Date(s): 09/16/20 - 10/16/20 [facility] [address] [place], [place] [address] Allergies, Adverse Reactions, Alerts Substance Reaction Severity [...] (oldterm) 11 10/08/07 Give n 1Result Comment: [facility]: [id number] 2Result Comment: [id number] given w/out incident 3Result Comment: [08/17/2018] [facility] [id number] 4Result Comment: [08/31/2017] given w/out incident [facility]: [id number] 5Result Comment: [08/21/2014] given w/o incident...AA 6Result Comment: [07/25/2013] given w/out incident 7Admin Note: vis sheet given. 8Admin Note: historial data 9Result Comment: [id number] 10Admin Note: mass bio 11Admin Note: sanofi Medications acetaminophen 650 mg oral tablet, extended release 2 tablet = 1,300 mg, By Mouth, Every 8 hours, PRN as needed for pain, for 30 days, # 90 tablet, 5 Refills, Acute 10/18/20 17:11:00 EST, 04/21/20 17:11:00 EDT, ER Tablet, [facility] 167, cm, 01/14/20 9:59:00 EDT, Height Start Date: 04/21/20 Stop Date: 10/18/20 Status: Ordered Advair HFA 115 mcg / 21 mcg 2 puffs, Inhalation, 2 times a day, Dx: COPD rinse mouth and throat after use, # 3 each, 3 Refills,Maintenance, 04/16/20 10:16:00 EDT, Aerosol, [facility] replaces Rx for symbicort not covered by her insurance, 2 puffs Inhalation 2... Start Date: 04/16/20 Stop Date: 04/11/21 Status: Ordered amitriptyline 100 mg oral tablet 1.5 tablet = 150 mg, By Mouth, Daily at bedtime, # 135 tablet, 3 Refills, Maintenance, 04/16/20 10:16:00 EDT, Tablet, [facility] 167, cm, 01/14/20 9:59:00 EDT, Height Start Date: 04/16/20 Stop Date: 04/11/21 Status: Ordered amLODIPine 10 mg oral tablet 10 mg, 1, tablet, By Mouth, Daily, # 90 tablet, Refills 3, Tot. Refills 3, Maintenance, 04/16/20 10:16:00 EDT, Route to Pharmacy Electronically, [facility] 167, cm, 01/14/20 9:59:00 EDT, [...] 3 Refills, Maintenance, 05/11/20 9:45:00 EDT, Tablet, [facility] 167, cm, 01/14/20 9:59:00 EDT, Height Start Date: 05/11/20 Stop Date: 05/06/21 Status: Ordered buPROPion 300 mg/24 hours (XL) oral tablet, extended release 1 tablet = 300 mg, By Mouth, Daily, # 90 tablet, 3 Refills, Maintenance, 09/29/20 14:40:00 EST, ER Tablet, [facility]., increase in dose, 167, cm, 01/14/20 9:59:00 EDT, Height Start Date: 09/29/20 Stop Date: 09/24/21 Status: Ordered busPIRone 10 mg oral tablet 10 mg, 1, tablet, By Mouth, 2 times a day, # 180 tablet, Refills 3, Tot. Refills 3, Maintenance, 07/07/20 12:31:00 EDT, Route to Pharmacy Electronically, [facility] 167, cm, :59:00 EDT, Height Start Date: 07/07/20 Stop Date: 07/02/21 Status: Ordered cetirizine 10 mg oral tablet 1 tablet = 10 mg, By Mouth, Daily, PRN for allergy symptoms, # 30 tablet, 8 Refills, Maintenance, 09/01/20 17:26:00 EST, Tablet, [facility]., 167, cm, 01/14/20 9:59:00 EDT, Height Start Date: 09/01/20 Stop Date: 05/29/21 Status: Ordered chlorthalidone 25 mg oral tablet 25 mg, 1, tablet, By Mouth, Daily, # 90 tablet, Refills 3, Tot. Refills 3, Maintenance, 04/16/20 10:15:00 EDT, Route to Pharmacy Electronically, [facility], replaces hydrochlorothiazide, 167, cm, 01/14/20 9:59:00 [...] kit, 1 Refills, Soft Stop,04/16/20 10:16:00 EDT, [facility], 167, cm, 01/14/20 9:59:00 EDT, Height Start Date: 04/16/20 Status: Ordered FLUoxetine 20 mg oral capsule 3, capsule, By Mouth, Daily, # 270 capsule, Refills 3, Tot. Refills 0, Maintenance, 02/21/20 15:09:00 EDT, [facility], 167, cm, 01/14/20 9:59:00 EDT, Height [...] 01/14/20 10:17:00 EDT, Route to Pharmacy Electronically, [facility], lower dose, 167, cm, 01/14/20 9:59:00 EDT, Height Start Date: 01/14/20 Stop Date: 01/08/21 Status: Ordered Meclizine By Mouth, 3 times a day, 0 Refills, Maintenance, 12/14/18 15:25:26 EST Start Date: 12/14/18 Status: Ordered nystatin topical [id number] u/gm powder See Instructions, APPLY TOPICALLY TO AFFECTED AREA TWO TIMES A DAY FOR 14 DAYS, # 30 Gm, 0 Refills,Acute, [facility], 14, APPLY TOPICALLY TO AFFECTED AREA [...] # 56 tablet, 0 Refills, Hard Stop 10/28/20 9:03:00 EST, 09/30/20 9:03:00 EST, ER Tablet, [facility] Start Date: 09/30/20 Stop Date: 10/28/20 Status: Ordered Periwash Perineal cleaning solution Periwash [...] # 1 each, 5 Refills, Soft Stop, 10/08/20 11:36:00 EST, Aerosol, [facility] replaces proair, 167, cm, 01/14/20 9:59:00 EDT, Height Start Date: 10/08/20 Stop Date: 04/06/21 Status: Ordered zolpidem 10 mg oral tablet 1 tablet = 10 mg, By Mouth, Daily at bedtime, PRN as needed for insomnia, # 28 tablet, 0 Refills, Soft Stop, 10/15/20 13:46:00 EST, [facility] 167, cm, 01/14/20 9:59:00 EDT, [...] (aunt)(Confirmed) Active FH: 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 (mom)(Confirmed) 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
--- OUTSIDE RECORDS SUMMARY | 2023-12-11 08:22 | XMS_ITS | Continuity of Care Document ---
Author Name Unknown Organization [facility] Address [address] [place] [address]- Care Team Providers Care Cath Lab Radiology Technician Name Role Phone Demario Nassar MD Primary Care Physician Encounter [facility] Date(s): 02/14/22 - 02/14/[address] [address]- Discharge Disposition: A-D/C Home Attending Physician: Jonas Caro MD Admitting Physician: Jonas Caro MD Referring Physician: Not on Staff, Referring MD Allergies, Adverse Reactions, Alerts Substance Reaction [...] (oldterm) 12 10/08/07 Give n 1Result Comment: [id number] given w/out incident 2Result Comment: [facility]: [id number] 3Result Comment: [id number] given w/out incident 4Result Comment: [08/17/2018] [facility] [id number] 5Result Comment: [08/31/2017] given w/out incident [facility]: [id number] 6Result Comment: [08/21/2014] given w/o incident...AA 7Result Comment: [07/25/2013] given w/out incident 8Admin Note: vis sheet given. 9Admin Note: historial data 10Result Comment: [id number] 11Admin Note: mass bio 12Admin Note: sanofi [...] EVERY USE., # 36 Gm, 3 [facility] 90, INHALE 2 PUFFS BY MOUTH TWO TIMES A DAY RINSE MOUTH AFTER EVERY USE., 177, cm, 10/19/21 10:00:00 EST, Height, 108, kg... Start Date: 12/21/21 Status: Ordered amitriptyline 100 mg oral tablet 1.5 tablet = 150 mg, By Mouth, Daily at bedtime, # 135 tablet, 3 Refills, Maintenance, 06/02/21 11:36:00 EDT, Tablet, [facility] 177, cm, 06/02/21 11:35:00 EDT, Height, 108, kg, 05/24/21 19:44:00 EDT, Dry Weight Start Date: 06/02/21 Stop Date: 05/28/22 Status: Ordered amLODIPine 10 mg oral tablet 10 mg, 1, tablet, By Mouth, Daily, # 90 tablet, Refills 1, Tot. Refills 1, Maintenance, 05/28/22 11:36:00 EDT, Route to Pharmacy Electronically, [facility], 177, cm, 10/19/21 10:00:00EST, Height, 108, [...] Refills, Maintenance, 09/16/21 9:24:00 EST, ER Tablet, [facility]., increase in dose, 177, cm, 06/02/21 11:35:00 EDT, Height, 108, kg, 05/24/21 19:44:00 EDT, Dry Weight Start Date: 09/16/21 Stop Date: 09/11/22 Status: Ordered busPIRone 10 mg oral tablet 10 mg, 1, tablet, By Mouth, 2 times a day, # 180 tablet, Refills 3, Tot. Refills 3, Maintenance, 09/16/21 9:24:00 EST, Route to Pharmacy Electronically, [facility], 177, cm, 06/02/21 11:35:00 EDT, Height, [...] 06/02/21 11:36:00 EDT, Route to Pharmacy Electronically, [facility], lower dose, 177, cm, 06/02/21 11:35:00 EDT, Height, 108, kg, 05/24/21 19:44:00... Start Date: 06/02/21 Stop Date: 05/28/22 Status: Ordered Mapap Arthritis Pain 650 mg oral tablet, extended release 2 tablet, By Mouth, Every 8 hours, PRN NEEDED FOR PAIN FOR, for 30 days, # 90 tablet, 9 Refills,Physician Stop 10/17/22 9:00:00 EST, 12/21/21 9:00:00 EST, [facility], 177, cm, 12/21/21 8:59:00 EST, [...] 56tablet, 0 Refills, Maintenance, 01/18/22 7:46:00 EDT, [facility], 177, cm, 228:59:00 EST, Height, 108, kg, 05/24/21 19:44:00 EDT... [...] 01/11/22 15:16:00 EDT, Route to Pharmacy Electronically, [facility], Partial fill uponpatient request if the prescription is for a schedu... Start Date: 01/11/22 Stop Date: 07/10/22 Status: Ordered Ventolin HFA 108 mcg/inh inhalation aerosol with adapter 2 puffs, Inhalation, 4 times a day, PRN NEEDED FOR WHEEZING, # 18 Gm, 6 Refills, 12/28/21 11:00:00 EST, [facility] 177, cm, 12/21/21 8:59:00 EST, Height, 108, kg, 05/24/21 19:44:00 EDT, Dry Weight Start Date: 12/28/21 Status: Ordered Zofran 4 mg oral tablet 1 tablet = 4 mg, By Mouth, Every 8 hours, PRN Nausea & Vomiting, # 12 tablet, 0 Refills, Acute 06/09/22 10:43:00 EDT, 06/09/21 10:43:00 EDT, Tablet, [facility], Partial fill upon patient request if the prescription is for a schedule II... Start Date: 06/09/21 Stop Date: 06/09/22 Status: Ordered zolpidem 10 mg oral tablet 1 tablet, By Mouth, Daily at bedtime, PRN NEEDED FOR INSOMNIA, # 28 tablet, 0 Refills, Acute 02/18/22 7:47:00 EDT, 01/18/22 7:47:00 EDT, [facility] refill when due, 177, [...] to oldest [Reference Range]: 1 2 Height 0 cm (02/14/22 9:57 PM) 0 cm (02/14/22 9:01 PM) Weight 114.4 kg (02/14/22 9:57 PM) 114.4 kg (02/14/22 9:01 PM) Oxygen Saturation [94-100 %] 98 % (02/14/22 9:57 PM) 95 % (02/14/22 9:01 PM) Pulse Rate [55-90 bpm] 68 bpm (02/14/22 9:57 PM) 74 bpm (02/14/22 9:01 PM) Blood Pressure [90-138/55-84 mm Hg] 136/ 83mm Hg (02/14/22 9:57 PM) 150/78mm Hg *H* (02/14/22 9:01 PM) Respiratory Rate [16-30 br/min] 20 br/mi n (02/14/22 9:57 PM) 18 br/min (02/14/22 9:01 PM) Temperature [96.8-100.4 DegF] 96.9 DegF (02/14/22 9:57 PM) 98.1 DegF (02/14/22 9:01 PM) Mode of Delivery (Oxygen) Room air (02/14/22 9:57 PM) Room air (02/14/22 9:01 PM) Blood pressure sites Arm, left (02/14/22 9:57 PM) Arm, right (02/14/22 9:01 PM) Temperature Route Temporal (02/14/22 9:57 PM) Dry Weight 114.4 kg (02/14/22 9:57 PM) 114.4 kg (02/14/22 9:01 PM) Social History Social History Type Response Smoking Status 5-9 cigarettes (betw een 1/4 to 1/2 pack)/day in last 30 days; Type: Cigarettes entered on: 02/14/22 Sex
--- OUTSIDE RECORDS SUMMARY | 2023-12-11 08:22 | XMS_ITS | Continuity of Care Document ---
Author Name Unknown Organization [facility] Address [address] [place] [address]- Care Team Providers Care Track Walker Name Role Phone Demario Nassar MD Primary Care Physician Encounter [facility] [id number] Date(s): 11/02/23 - 12/06/23 [facility] [address] [place], [place] [address] Attending Physician: Demario Nassar MD Allergies, Adverse Reactions, Alerts Substance Reaction Severity Status morphine C/O: itching Active Bee Stings swelling, loss of consciousness Active fentaNYL C/O: itching Active Immunizations Given and Recorded Vaccine Date Status Refusal Reason influenza virus vaccine, inactivated 1 11/30/23 Gi cyn influenza virus vaccine, inactivated 2, 3 12/05/22 Given influenza virus vaccine, inactivated 4 09/16/21 Gi cyn influenza virus vaccine, inactivated 5 09/01/20 Gi cyn influenza virus vaccine, inactivated 6 07/23/19 Gi cyn influenza virus vaccine, inactivated 7 08/17/18 Gi cyn influenza virus vaccine, inactivated 8 08/31/17 Gi cyn influenza virus vaccine, inactivated 08/07/15 Give n influenza virus vaccine, inactivated 08/21/14 Gi cyn influenza virus vaccine, inactivated 10 07/25/13 G iven influenza virus vaccine, inactivated 11 07/06/12 G iven influenza virus vaccine, inactivated 07/06/11 Give n SARS-CoV-2 (COVID-19) mRNA BNT-162b2 vac 06/23/21 Recorded SARS-CoV-2 (COVID-19) mRNA BNT-162b2 vac 06/02/21 Recorded Typhoid Vaccine, Inactivated 11/19/19 Given Hepatitis A Adult Vaccine 11/19/19 Given tetanus-diphtheria toxoids (Td) 04/23/19 Given tetanus-diphtheria toxoids (Td) 12 11/27/96 Given pneumococcal 23-valent vaccine 13 01/22/19 Given diphtheria-tetanus toxoids (DT) 14 03/19/09 Given Influenza Virus Vaccine (oldterm) 15 10/08/07 Give n 1Result Comment: [id number] given w/out incident 2Early/Late Reason: Early/Late Reason: Other : not documented 3Result Comment: [id number] given w/out incident 4Result Comment: [id number] given w/out incident 5Result Comment: [facility]: [id number] 6Result Comment: [id number] given w/out incident 7Result Comment: [08/17/2018] [facility] [id number] 8Result Comment: [08/31/2017] given w/out incident [facility]: [id number] 9Result Comment: [08/21/2014] given w/o incident...AA 10Result Comment: [07/25/2013] given w/out incident 11Admin Note: vis sheet given. 12Admin Note: historial data 13Result Comment: [id number] 14Admin Note: mass bio 15Admin Note: sanofi Medications 4 wheel walker with seat 4 wheel walker with seat, See Instructions, # 1 each, Refills 0, Tot. Refills 0, Maintenance, use for mobility. 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 lifetime use Ht: 5'8 Wt: 247lbs, 11/06/23 15:08:00 EST, Supply Start Date: 11/06/23 Status: Ordered 8 HOUR ARTHRITIS PAIN RELIE 650 Tablet [...] tablet, 5 Refills, Maintenance, 07/28/23 13:25:00 EDT, [facility], 167, cm, 05/29/23 18:21:00 EDT, Height, 114.4, kg, 02/14/22 21:57:00 EDT, Dry Weight Start Date: 07/28/23 Status: Ordered Advair HFA 115 mcg / 21 mcg 2 puffs, Inhalation, 2 times a day, AFTER EVERY USE., # 36 Gm, 1 Refills, Maintenance, 07/28/23 13:25:00 EDT, [facility], 90, INHALE 2 PUFFS BY MOUTH TWO TIMES A DAY RINSE MOUTH AFTER EVERYUSE., 167, cm, 05/29/23 18:21:00 EDT, Height, 114.4... Start Date: 07/28/23 Status: Ordered All Day Allergy 10 mg oral tablet 1 tablet, By Mouth, Daily, PRN NEEDED FOR ALLERGY SYMPTOMS, # 30 tablet, 5 Refills, Maintenance,06/20/23 7:39:00 EDT, [facility], 167, cm, 05/29/23 18:21:00 EDT, Height, 114.4, kg, 02/14/22 21:57:00 EDT, Dry Weight Start Date: 06/20/23 Status: Ordered amLODIPine 10 mg oral tablet 10 mg, 1, tablet, By Mouth, Daily, # 90 tablet, Refills 3, Tot. Refills 3, Maintenance, 11/25/22 15:31:00 EST, Route to Pharmacy Electronically, [facility], 177, cm, 12/21/21 8:59:00 EST, Height, 114.4, kg, 02/14/22 21:57:00 EDT, Dry W... Start Date: 11/25/22 Stop Date: 11/20/23 Status: Ordered atorvastatin 40 mg oral tablet See Instructions, TAKE 1 TABLET BY MOUTH EVERY DAY, # 90 tablet, 1 Refills, Maintenance, 11/30/23 7:19:00 EST, [facility], cm, 05/29/23 18:21:00 EDT, Height, 114.4, kg, 04/18/22 21:57:00 EDT, Dry Weight Start Date: 11/30/23 Status: Ordered Bladder pads 120/case Bladder pads [...] Date: 10/21/22 Stop Date: 11/20/22 Status: Ordered CPAP Supplies - Tubing, Filter, [...] Unknown, 1 Refills, Maintenance, 05/12/23 12:41:00 EDT, [facility], 167, cm, 12/05/22 10:53:00 EST, Height, 114.4, kg, 02/14/22 21:57:00 EDT,... Start Date: 05/12/23 Status: Ordered gabapentin 300 mg oral capsule See Instructions, TAKE 3 CAPSULES BY MOUTH IN THE MORNING, 3 CAPSULES EARLY PM AND 4 CAPSULES AT BEDTIME., # 900 capsule, Refills 3, Maintenance, 12/23/22 13:41:00 EST, Instructions Replace Required Details, [facility] to [facility], [facility] Start Date: 12/23/22 Status: Ordered gloves, large gloves, large, See Instructions, # 50 each, Refills 11, Tot. Refills 11, Maintenance, use when handling soiled linen Dx: N39.4, 03/20/20 17:02:00 EDT, Supply Start Date: 03/20/20 Status: Ordered hydrochlorothiazide-triamterene 25 mg-37.5 mg oral capsule 1 capsule, By Mouth, Daily, # 90 capsule, 3 Refills, Maintenance, 11/30/23 9:52:00 EST, Capsule, [facility]., replaces chlorthalidone, 1 capsule By Mouth Daily,x90 days, 167, cm, 05/29/23 18:21:00 EDT, Height, 114.4, kg, 02/14/22 21:57:... Start Date: 11/30/23 Stop Date: 11/24/24 Status: Ordered incontinence pads, large incontinence pads, large, See Instructions, # 120 each, Refills 11, Tot. Refills 11, Maintenance, use and replace QID as needed for urine incontinence. Dx: 39.81, 11/06/23 15:06:00 EST, Supply Start Date: 11/06/23 Status: Ordered losartan 100 mg oral tablet 1 tablet = 100 mg, By Mouth, Daily, # 90 tablet, 4 Refills, Maintenance, 05/29/23 18:09:00 EDT, Tablet, [facility]., increase in dose, 167, cm, 05/29/23 17:54:00 [...] , Severe, # 56 tablet, 0 Refills, Maintenance,11/30/23 7:20:00 EST, [facility], 167, cm, 05/29/23 18:21:00 EDT, Height, 114.4, kg, 02/14/22 21:57:00 EDT, Dry Weight Start Date: 11/30/23 Stop Date: 12/28/23 Status: Ordered pantoprazole 40 mg oral delayed [...] WHEEZING, # 18 Gm, 5 Refills, Maintenance, 11/22/23 9:48:00 EST, [facility], 167, cm, 05/29/23 18:21:00 EDT, Height, 114.4, kg, 02/14/22 21:57:00 EDT, Dry Weight Start Date: 11/22/23 Status: Ordered Problem List Condition Confirmation Course [...] Confirmed Active FH: 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 (mom) 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
--- OUTSIDE RECORDS SUMMARY | 2023-12-11 08:22 | XMS_ITS | Continuity of Care Document ---
Author Name Unknown Organization [facility] Address [address] [place] [address]- Care Team Providers Care Industrial Design Engineer Name Role Phone Cesario SCHULER, Demario Primary Care Physician Encounter [facility] Date(s): 04/22/22 - 05/22/22 [facility] [address] [place], [place] [address] Allergies, Adverse Reactions, Alerts [...] (oldterm) 12 10/08/07 Give n 1Result Comment: [id number] given w/out incident 2Result Comment: [facility]: 51154-463-39 3Result Comment: [id number] given w/out incident 4Result Comment: [08/17/2018] [facility] [id number] 5Result Comment: [08/31/2017] given w/out incident [facility]: [id number] 6Result Comment: [08/21/2014] given w/o incident...AA 7Result Comment: [07/25/2013] given w/out incident 8Admin Note: vis sheet given. 9Admin Note: historial data 10Result Comment: [id number] 11Admin Note: mass bio 12Admin Note: sanofi [...] EVERY USE., # 36 Gm, 3 Refills, [facility], 90, INHALE 2 PUFFS BY MOUTH TWO TIMES A DAY RINSE MOUTH AFTER EVERY USE., 177, cm, 10/19/21 10:00:00 EST, Height, 108, kg... Start Date: 12/21/21 Status: Ordered amitriptyline 100 mg oral tablet 0.5 tablet = 50 mg, By Mouth, Daily at bedtime, # 45 tablet, 3 Refills, Maintenance, 06/02/21 11:36:00 EDT, Tablet, [facility] 177, cm, 06/02/21 11:35:00 EDT, Height, 108, kg, 05/24/21 19:44:00 EDT, Dry Weight Start Date: 06/02/21 Stop Date: 05/28/22 Status: Ordered amLODIPine 10 mg oral tablet 10 mg, 1, tablet, By Mouth, Daily, # 90 tablet, Refills 1, Tot. Refills 1, Maintenance, 05/28/22 11:36:00 EDT, Route to Pharmacy Electronically, [facility], 177, cm, 10/19/21 10:00:00EST, Height, 108, kg, 05/24/21 19:44:00 EDT, Dry We... Start Date: 05/28/22 Stop Date: 11/24/22 Status: Ordered amLODIPine 10 mg oral tablet See Instructions, TAKE 1 TABLET BY MOUTH DAILY, # 90 tablet, 3 Refills, [facility], 177, cm, 12/21/21 8:59:00 EST, Height, [...] Refills, Maintenance, 09/16/21 9:24:00 EST, ER Tablet, [facility], increase in dose, 177, cm, 06/02/21 11:35:00 EDT, Height, 108, kg, 05/24/21 19:44:00 EDT, Dry Weight Start Date: 09/16/21 Stop Date: 09/11/22 Status: Ordered busPIRone 10 mg oral tablet 15 mg, 1.5, tablet, By Mouth, 2 times a day, # 270 tablet, Refills 3, Tot. Refills 3, Maintenance, 09/16/21 9:24:00 EST, Route to Pharmacy Electronically, [facility], 177, cm, 06/02/21 11:35:00 EDT, Height, 108, kg, 05/24/21 19:44:00 E... Start Date: 09/16/21 Stop Date: 09/11/22 Status: Ordered cetirizine 10 mg oral tablet 1 tablet, By Mouth, Daily, PRN NEEDED FOR ALLERGY SYMPTOMS, # 30 tablet, 5 Refills, 04/16/22 9:35:00 EDT, [facility], 177, cm, 12/21/21 8:59:00 EST, Height, 114.4, kg, 02/14/22 21:57:00 EDT, Dry Weight Start Date: 04/16/22 Status: Ordered chlorthalidone 25 mg oral tablet 25 mg, 1, tablet, By Mouth, Daily, # 30 tablet, Refills 1, Tot. Refills 1, Maintenance, 04/29/22 14:31:00 EDT, Route to Pharmacy Electronically, [facility], replaces spironolactone, 177, cm, 12/21/21 8:59:00 [...] (SEVERE ALLERGY), # 2 Unknown, 1 Refills, [facility], 177, cm, 06/02/21 11:35:00 EDT, Height, 108, kg, 05/24/21 19:44:00 EDT, Dry Weight Start Date: 09/08/21 Status: Ordered gabapentin 300 mg oral capsule See Instructions, TAKE 3 CAPSULES BY MOUTH IN THE MORNING, 2 CAPSULES EARLY PM AND 3 CAPSULES AT BEDTIME., # 900 capsule, Refills 3, Instructions Replace Required Details, Route to Pharmacy Electronically, [facility], 177, cm, 12/21/21 8:59:... Start Date: 01/11/22 Status: Ordered gloves, large gloves, large, See Instructions, # 50 each, Refills 11, Tot. Refills 11, Maintenance, use when handling soiled linen Dx: N39.4, 03/20/20 17:02:00 EDT, Supply Start Date: 03/20/20 Status: Ordered losartan 100 mg oral tablet 1 tablet = 100 mg, By Mouth, Daily, # 90 tablet, 4 Refills, Maintenance, 03/31/22 15:03:00 EDT, Tablet, [facility], increase in dose, 177, cm, 12/21/21 8:59:00 EST, Height, 114.4, kg,02/14/22 21:57:00 EDT, Dry Weight Start Date: 03/31/22 Stop Date: 06/24/23 Status: Ordered Mapap Arthritis Pain 650 mg oral tablet, extended release 2 tablet, By Mouth, Every 8 hours, PRN NEEDED FOR PAIN FOR, for 30 days, # 90 tablet, 9 Refills,Physician Stop 10/17/22 9:00:00 EST, 12/21/21 9:00:00 EST, [facility], 177, cm, 12/21/21 8:59:00 EST, Height, [...] 56 tablet, 0 Refills, Maintenance,05/09/22 19:30:00 EDT, [facility], may dispense on 05-10-2022, 177, cm, [...] 18 Gm, 6 Refills, 12/28/21 11:00:00 EST, [facility], 177, cm, 12/21/21 8:59:00 EST, Height, 108, kg, 05/24/21 19:44:00 EDT, Dry Weight Start Date: 12/28/21 Status: Ordered Zofran 4 mg oral tablet 1 tablet = 4 mg, By Mouth, Every 8 hours, PRN Nausea & Vomiting, # 12 tablet, 0 Refills, Acute 06/09/22 10:43:00 EDT, 06/09/21 10:43:00 EDT, Tablet, [facility], Partial fill upon patient request if the prescription is for a schedule II... 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
--- OUTSIDE RECORDS SUMMARY | 2023-12-11 08:23 | XMS_ITS | Continuity of Care Document ---
Author Name Unknown Organization [facility] Address [address] [place] [address]- Care Team Providers Care Pile Driver Name Role Phone Demario Nassar MD Primary Care Physician Encounter [facility] Date(s): 10/27/23 - 11/26/23 [facility] [address] [place], [place] [address] Allergies, Adverse Reactions, Alerts Substance [...] Reason: Other : not documented 2Result Comment: [id number] given w/out incident 3Result Comment: [id number] given w/out incident 4Result Comment: [facility]: 99629-615-25 5Result Comment: [id number] given w/out incident 6Result Comment: [08/17/2018] [facility] 97720-905-52 7Result Comment: [08/31/2017] given w/out incident [facility]: 17769-535-10 8Result Comment: [08/21/2014] given w/o incident...AA 9Result Comment: [07/25/2013] given w/out incident 10Admin Note: vis sheet given. 11Admin Note: historial data 12Result Comment: [id number] 13Admin Note: mass bio 14Admin Note: sanofi Medications 4 wheel walker with [...] tablet, 5 Refills, Maintenance, 07/28/23 13:25:00 EDT, [facility], 167, cm, 05/29/23 18:21:00 EDT, Height, 114.4, kg, 02/14/22 21:57:00 EDT, Dry Weight Start Date: 07/28/23 Status: Ordered Advair HFA 115 mcg / 21 mcg 2 puffs, Inhalation, 2 times a day, AFTER EVERY USE., # 36 Gm, 1 Refills, Maintenance, 07/28/23 13:25:00 ED[facility], [facility], [facility], INHALE 2 PUFFS BY MOUTH TWO TIMES A DAY RINSE MOUTH AFTER EVERYUSE., 167, cm, 05/29/23 18:21:00 EDT, Height, 114.4... Start Date: 07/28/23 Status: Ordered All Day Allergy 10 mg oral tablet 1 tablet, By Mouth, Daily, PRN NEEDED FOR ALLERGY SYMPTOMS, # 30 tablet, 5 Refills, Maintenance,06/20/23 7:39:00 EDT, [facility], 167, cm, 05/29/23 18:21:00 EDT, Height, 114.4, kg, 02/14/22 21:57:00 EDT, Dry Weight Start Date: 06/20/23 Status: Ordered amLODIPine 10 mg oral tablet 10 mg, 1, tablet, By Mouth, Daily, # 90 tablet, Refills 3, Tot. Refills 3, Maintenance, 11/25/22 15:31:00 EST, Route to Pharmacy Electronically, [facility]., 177, cm, 12/21/21 8:59:00 EST, Height, 114.4, kg, 02/14/22 21:57:00 EDT, Dry W... Start Date: 11/25/22 Stop Date: 11/20/23 Status: Ordered atorvastatin 40 mg oral tablet 1 tablet, By Mouth, Daily, # 90 tablet, 1 Refills, Maintenance, 02/03/23 16:11:00 EDT, [facility]., 167, cm, 12/05/22 10:53:00 EST, Height, [...] 05/29/23 18:09:00 EDT, Route to Pharmacy Electronically, [facility], replaces spironolactone, 167, cm, 05/29/23 17:54:00 [...] Unknown, 1 Refills, Maintenance, 05/12/23 12:41:00 EDT, [facility], [facility], cm, 12/05/22 10:53:00 EST, Height, 114.4, kg, 02/14/22 21:57:00 EDT,... Start Date: 05/12/23 Status: Ordered gabapentin 300 mg oral capsule See Instructions, TAKE 3 CAPSULES BY MOUTH IN THE MORNING, 3 CAPSULES EARLY PM AND 4 CAPSULES AT BEDTIME., # 900 capsule, Refills 3, Maintenance, 12/23/22 13:41:00 EST, Instructions Replace Required Details, Route to Pharmacy Electronically, [facility] Start Date: 12/23/22 Status: Ordered gloves, large gloves, large, See Instructions, # 50 each, Refills 11, Tot. Refills 11, Maintenance, use when handling soiled linen Dx: N39.4, 03/20/20 17:02:00 EDT, Supply Start Date: 03/20/20 Status: Ordered incontinence pads, large incontinence pads, large, See Instructions, # 120 each, Refills 11, Tot. Refills 11, Maintenance, use and replace QID as needed for urine incontinence. Dx: 39.81, 11/06/23 15:06:00 EST, Supply Start Date: 11/06/23 Status: Ordered losartan 100 mg oral tablet 1 tablet = 100 mg, By Mouth, Daily, # 90 tablet, 4 Refills, Maintenance, 05/29/23 18:09:00 EDT, Tablet, [facility] increase in dose, 167, cm, 05/29/23 [...] , Severe, # 56 tablet, 0 Refills, Maintenance,11/02/23 13:25:00 EST, [facility], 167, cm, 05/29/23 18:21:00 EDT, Height, 114.4, kg, 02/14/22 21:57:00 EDT, Dry Weight Start Date: 11/02/23 Stop Date: 11/30/23 Status: Ordered pantoprazole 40 mg oral delayed [...] Gm, 5 Refills, Maintenance, 11/22/23 9:48:00 EST, [facility], 167, cm, 05/29/23 18:21:00 EDT, Height, 114.4, [...] Active FH: 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 (mom) 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
--- OUTSIDE RECORDS SUMMARY | 2023-12-11 08:23 | XMS_ITS | Continuity of Care Document ---
Author Name Unknown Organization [facility] Address [address] [place] [address]- Care Team Providers Care Air Defence Officer Name Role Phone Cesario SCHULER, Demario Primary Care Physician Encounter [facility] Date(s): 05/11/20 - 06/10/20 [facility] [address] [place] [address]- [facility] Allergies, Adverse Reactions, Alerts Substance Reaction Severity [...] (oldterm) 10 10/08/07 Give n 1Result Comment: [id number] given w/out incident 2Result Comment: [08/17/2018] [facility] [id number] 3Result Comment: [08/31/2017] given w/out incident [facility]: [id number] 4Result Comment: [08/21/2014] given w/o incident...AA 5Result Comment: [07/25/2013] given w/out incident 6Admin Note: vis sheet given. 7Admin Note: historial data 8Result Comment: [id number] 9Admin Note: mass bio 10Admin Note: sanofi Medications acetaminophen 650 mg oral tablet, extended release 2 tablet = 1,300 mg, By Mouth, Every 8 hours, PRN as needed for pain, for 30 days, # 90 tablet, 5 Refills, Acute 10/18/20 17:11:00 EST, 04/21/20 17:11:00 EDT, ER Tablet, [facility] 167, cm, 01/14/20 9:59:00 EDT, Height Start Date: 04/21/20 Stop Date: 10/18/20 Status: Ordered Advair HFA 115 mcg / 21 mcg 2 puffs, Inhalation, 2 times a day, Dx: COPD rinse mouth and throat after use, # 3 each, 3 Refills,Maintenance, 04/16/20 10:16:00 EDT, Aerosol, [facility]., replaces Rx for symbicort not covered by her insurance, 2 puffs Inhalation 2... Start Date: 04/16/20 Stop Date: 04/11/21 Status: Ordered amitriptyline 100 mg oral tablet 1.5 tablet = 150 mg, By Mouth, Daily at bedtime, # 135 tablet, 3 Refills, Maintenance, 04/16/20 10:16:00 EDT, Tablet, [facility] 167, cm, 01/14/20 9:59:00 EDT, Height Start Date: 04/16/20 Stop Date: 04/11/21 Status: Ordered amLODIPine 10 mg oral tablet 10 mg, 1, tablet, By Mouth, Daily, # 90 tablet, Refills 3, Tot. Refills 3, Maintenance, 04/16/20 10:16:00 EDT, Route to Pharmacy Electronically, [facility] 167, cm, 01/14/20 9:59:00 EDT, [...] 3 Refills, Maintenance, 05/11/20 9:45:00 EDT, Tablet, [facility], 167, cm, 01/14/20 9:59:00 EDT, Height [...] 04/16/20 10:16:00 EDT, Route to Pharmacy Electronically, [facility], 167, cm, 209:59:00 EDT, Height Start Date: 04/16/20 Stop Date: 04/11/21 Status: Ordered chlorthalidone 25 mg oral tablet 25 mg, 1, tablet, By Mouth, Daily, # 90 tablet, Refills 3, Tot. Refills 3, Maintenance, 04/16/20 10:15:00 EDT, Route to Pharmacy Electronically, [facility], replaces hydrochlorothiazide, 167, cm, 01/14/20 9:59:00 [...] kit, 1 Refills, Soft Stop,04/16/20 10:16:00 EDT, [facility], 167, cm, 01/14/20 9:59:00 EDT, Height Start Date: 04/16/20 Status: Ordered FLUoxetine 20 mg oral capsule 3, capsule, By Mouth, Daily, # 270 capsule, Refills 3, Tot. Refills 0, Maintenance, 02/21/20 15:09:00 EDT, Route to Pharmacy Electronically, [facility], 167, cm, 01/14/20 9:59:00 EDT, Height [...] 01/14/20 10:17:00 EDT, Route to Pharmacy Electronically, [facility], lower dose, 167, cm, 01/14/20 9:59:00 EDT, Height Start Date: 01/14/20 Stop Date: 01/08/21 Status: Ordered Meclizine By Mouth, 3 times a day, 0 Refills, Maintenance, 12/14/18 15:25:26 EST Start Date: 12/14/18 Status: Ordered nystatin topical 604181 u/gm powder See Instructions, APPLY TOPICALLY TO AFFECTED AREA TWO TIMES A DAY FOR 14 DAYS, # 30 Gm, 0 Refills,Acute, [facility], 14, APPLY TOPICALLY TO AFFECTED AREA [...] # 56 tablet, 0 Refills, Hard Stop 07/07/20 8:56:00 EDT, 06/09/20 8:56:00 EDT, ER Tablet, [facility]... Start Date: 06/09/20 Stop Date: 07/07/20 Status: Ordered Periwash Perineal cleaning solution Periwash [...] Refills, Soft Stop, 01/14/20 10:16:00 EDT, Aerosol, [facility] replaces proair, 167, cm, 01/14/20 9:59:00 EDT, Height Start Date: 01/14/20 Stop Date: 07/12/20 Status: Ordered zolpidem 10 mg oral tablet 1 tablet = 10 mg, By Mouth, Daily at bedtime, PRN as needed for insomnia, # 28 tablet, 0 Refills, Soft Stop, 05/26/20 8:24:00 EDT, [facility] 167, cm, 01/14/20 9:59:00 EDT, [...]
--- OUTSIDE RECORDS SUMMARY | 2023-12-11 08:23 | XMS_ITS | Continuity of Care Document ---
Author Name Unknown Organization [facility] Address [address] [place] [address]- Care Team Providers Care Duck Farmer Name Role Phone Demario Nassar MD Primary Care Physician Encounter [facility] Date(s): 11/18/22 - 12/18/22 [facility] [address] [place], [place] [address] Allergies, Adverse Reactions, Alerts [...] Reason: Other : not documented 2Result Comment: [id number] given w/out incident 3Result Comment: [id number] given w/out incident 4Result Comment: [facility]: [id number] 5Result Comment: [id number] given w/out incident 6Result Comment: [08/17/2018] [facility] [id number] 7Result Comment: [08/31/2017] given w/out incident [facility]: [id number] 8Result Comment: [08/21/2014] given w/o incident...AA 9Result Comment: [07/25/2013] given w/out incident 10Admin Note: vis sheet given. 11Admin Note: historial data 12Result Comment: [id number] 13Admin Note: mass bio 14Admin Note: sanofi [...] EVERY USE., # 36 Gm, 3 Refills, [facility], 90, INHALE 2 PUFFS BY MOUTH TWO TIMES A DAY RINSE MOUTH AFTER EVERY USE., 177, cm, 10/19/21 10:00:00 EST, Height, 108, kg... Start Date: 12/21/21 Status: Ordered All Day Allergy 10 mg oral tablet 1 tablet, By Mouth, Daily, PRN NEEDED FOR ALLERGY SYMPTOMS, # 30 tablet, 6 Refills, Maintenance,11/08/22 15:08:00 EST, [facility], 177, cm, 12/21/21 8:59:00 EST, Height, 114.4, kg, 02/14/22 21:57:00 EDT, Dry Weight Start Date: 11/08/22 Status: Ordered amLODIPine 10 mg oral tablet 10 mg, 1, tablet, By Mouth, Daily, # 90 tablet, Refills 3, Tot. Refills 3, Maintenance, 11/25/22 15:31:00 EST, Route to Pharmacy Electronically, [facility], 177, cm, 12/21/21 8:59:00 EST, Height, [...] Refills, Maintenance, 10/21/22 12:33:00 EST, ER Tablet, [facility], increase in dose, 177, cm, 12/21/21 [...] 08/02/22 15:37:00 EDT, Route to Pharmacy Electronically, [facility]., replaces spironolactone, 177, cm, 12/21/21 8:59:00 EST, [...] (SEVERE ALLERGY), # 2 Unknown, 1 Refills, [facility], 177, cm, 06/02/21 11:35:00 EDT, Height, 108, kg, 05/24/21 19:44:00 EDT, Dry Weight Start Date: 09/08/21 Status: Ordered gabapentin 300 mg oral capsule See Instructions, TAKE 3 CAPSULES BY MOUTH IN THE MORNING, 2 CAPSULES EARLY PM AND 3 CAPSULES AT BEDTIME., # 900 capsule, Refills 3, Instructions Replace Required Details, Route to Pharmacy Electronically, [facility], 177, cm, 12/21/21 8:59:... Start Date: 01/11/22 Status: Ordered gloves, large gloves, large, See Instructions, # 50 each, Refills 11, Tot. Refills 11, Maintenance, use when handling soiled linen Dx: N39.4, 03/20/20 17:02:00 EDT, Supply Start Date: 03/20/20 Status: Ordered losartan 100 mg oral tablet 1 tablet = 100 mg, By Mouth, Daily, # 90 tablet, 4 Refills, Maintenance, 03/31/22 15:03:00 EDT, Tablet, [facility]., increase in dose, 177, cm, 12/21/21 8:59:00 EST, Height, 114.4, kg,02/14/22 21:57:00 EDT, Dry Weight Start Date: 03/31/22 Stop Date: 06/24/23 Status: Ordered Mapap Arthritis Pain 650 mg oral tablet, extended release 2 tablet, By Mouth, Every 8 hours, PRN NEEDED FOR PAIN, # 90 tablet, 11 Refills, Maintenance, 08/12/22 10:25:00 EDT, [facility], 177, cm, 12/21/21 8:59:00 EST, Height, 114.4, kg, 02/14/22 21:57:00 EDT, Dry Weight Start Date: 08/12/22 Status: Ordered MiraLax oral powder for reconstitution = 17 Gm, By Mouth, Daily, dissolve in water before taking, # 255 Gm, 0 Refills, Acute 01/02/23 10:53:00 EST, 12/05/22 10:53:00 EST, REC Powder, Partial fill upon patient request if the prescription is for a schedule II opioid drug., 177, cm, 12/21/21... Start Date: 12/05/22 Stop Date: 01/02/23 Status: Ordered nebulizer nebulizer, See Instructions, # 1 kit, Refills 0, Tot. Refills 0, Maintenance, use as directed for shortness of breath Dx: COPD, 06/02/21 11:28:00 EDT, Supply Start Date: 06/02/21 Status: Ordered ondansetron 4 mg oral tablet 1 tablet = 4 mg, By Mouth, Every 8 hours, PRN as needed for nausea/vomiting, for 28 days, # 30 tablet, 0 Refills, Acute 12/23/22 15:36:00 EST, 11/25/22 15:36:00 EST, Tablet, [facility]., Partial fill upon patient request if the prescrip... Start Date: 11/25/22 Stop Date: 12/23/22 Status: Ordered OxyCONTIN 15 mg oral tablet, extended release 1 tablet = 15 mg, By Mouth, Every 12 hours, PRN Pain , Severe, # 56 tablet, 0 Refills, Maintenance,11/21/22 17:49:00 EST, [facility], resent, 177, cm, 12/21/21 8:59:00 EST, Height, 114.4, kg, 02/14/22 21:57:00 EDT, Dry Weight Start Date: 11/21/22 Stop Date: 12/19/22 Status: Ordered Protonix 40 mg oral delayed [...] Gm, 5 Refills, Maintenance, 12/15/22 14:09:00 EST, [facility], 167, cm, 12/05/22 10:53:00 EST, Height, 114.4, kg, 02/14/22 21:57:00 EDT, Dry Weight Start Date: 12/15/22 Status: Ordered zolpidem 10 mg oral tablet 1 tablet, By Mouth, Daily at bedtime, PRN NEEDED FOR INSOMNIA, for 28 days, # 28 tablet, 0 Refills, Acute 12/23/22 15:30:00 EST, 11/25/22 15:30:00 EST, [facility], refill on April 15, 2022, 177, cm, 12/21/21 8:59:00 EST, Height, 114.... 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 RN Member Role: Primary Care Nurse Name: Tri Sebastian RN Position: [facility] RN Member Role: Primary Care Nurse Name: Demario Nassar MD Position: [facility] Primary Care Physician Member Role: PCP Address: Address: [address] [place] [address] Adult & [place] [address]- Care Team Related Persons Name: EPIFANIO STYLES Address: home [address] [place] [address] [place] [id number] Name: DEUCE SEE
--- OUTSIDE RECORDS SUMMARY | 2023-12-11 08:23 | XMS_ITS | Continuity of Care Document ---
Author Name Unknown Organization [facility] Address [address] [place] [address]- Care Team Providers Care Senior Clinical Data Manager Name Role Phone Demario Nassar MD Primary Care Physician Encounter [facility] [id number] Date(s): 11/07/23 - 12/07/23 [facility] [address] [place], [place] [address] Allergies, Adverse Reactions, Alerts Substance [...] 08/07/15 Give n influenza virus vaccine, inactivated 9 08/21/14 Gi cyn influenza virus vaccine, inactivated 10 07/25/13 G iven influenza virus vaccine, inactivated 07/06/12 G iven influenza virus vaccine, inactivated [...] (oldterm) 15 10/08/07 Give n 1Result Comment: [id number] given w/out incident 2Early/Late Reason: Early/Late Reason: Other : not documented 3Result Comment: [id number] given w/out incident 4Result Comment: [id number] given w/out incident 5Result Comment: [facility]: [id number] 6Result Comment: [id number] given w/out incident 7Result Comment: [08/17/2018] [facility] [id number] 8Result Comment: [08/31/2017] given w/out incident [facility]: [id number] 9Result Comment: [08/21/2014] given w/o incident...AA 10Result Comment: [07/25/2013] given w/out incident 11Admin Note: vis sheet given. 12Admin Note: historial data 13Result Comment: [id number] 14Admin Note: mass bio 15Admin Note: sanofi [...] tablet, 5 Refills, Maintenance, 07/28/23 13:25:00 EDT, [facility], 167, cm, 05/29/23 18:21:00 EDT, Height, 114.4, kg, 02/14/22 21:57:00 EDT, Dry Weight Start Date: 07/28/23 Status: Ordered Advair HFA 115 mcg / 21 mcg 2 puffs, Inhalation, 2 times a day, AFTER EVERY USE., # 36 Gm, 1 Refills, Maintenance, 07/28/23 13:25:00 EDT, [facility], 90, INHALE 2 PUFFS BY MOUTH TWO TIMES A DAY RINSE MOUTH AFTER EVERYUSE., 167, cm, 05/29/23 18:21:00 EDT, Height, 114.4... Start Date: 07/28/23 Status: Ordered All Day Allergy 10 mg oral tablet 1 tablet, By Mouth, Daily, PRN NEEDED FOR ALLERGY SYMPTOMS, # 30 tablet, 5 Refills, Maintenance,06/20/23 7:39:00 EDT, [facility], 167, cm, 05/29/23 18:21:00 EDT, Height, 114.4, kg, 02/14/22 21:57:00 EDT, Dry Weight Start Date: 06/20/23 Status: Ordered amLODIPine 10 mg oral tablet 10 mg, 1, tablet, By Mouth, Daily, # 90 tablet, Refills 3, Tot. Refills 3, Maintenance, 11/25/22 15:31:00 EST, Route to Pharmacy Electronically, [facility], 177, cm, 12/21/21 8:59:00 EST, Height, 114.4, kg, 02/14/22 21:57:00 EDT, Dry W... Start Date: 11/25/22 Stop Date: 11/20/23 Status: Ordered atorvastatin 40 mg oral tablet See Instructions, TAKE 1 TABLET BY MOUTH EVERY DAY, # 90 tablet, 1 Refills, Maintenance, 11/30/23 7:19:00 EST, [facility], 167, cm, 05/29/23 18:21:00 EDT, [...] cm, 12/05/22 10:53:00 EST, Height, 114.4, kg, 04/18/22 21:57:00 EDT,... Start Date: 05/12/23 Status: Ordered gabapentin 300 mg oral capsule See Instructions, TAKE 3 CAPSULES BY MOUTH IN THE MORNING, 3 CAPSULES EARLY PM AND 4 CAPSULES AT BEDTIME., # 900 capsule, Refills 3, Maintenance, 12/23/22 13:41:00 EST, Instructions Replace Required Details, Route to Pharmacy Electronically, [facility] Start Date: 12/23/22 Status: Ordered gloves, large gloves, large, See Instructions, # 50 each, Refills 11, Tot. Refills 11, Maintenance, use when handling soiled linen Dx: N39.4, 03/20/20 17:02:00 EDT, Supply Start Date: 03/20/20 Status: Ordered hydrochlorothiazide-triamterene 25 mg-37.5 mg oral capsule 1 capsule, By Mouth, Daily, # 90 capsule, 3 Refills, Maintenance, 11/30/23 9:52:00 EST, Capsule, [facility], replaces chlorthalidone, 1 capsule By Mouth Daily,x90 [...] 4 Refills, Maintenance, 05/29/23 18:09:00 EDT, Tablet, [facility]., increase in dose, 167, cm, 05/29/23 [...] 56 tablet, 0 Refills, Maintenance,11/30/23 7:20:00 EST, [facility], 167, cm, 05/29/23 18:21:00 EDT, Height, 114.4, [...] Gm, 5 Refills, Maintenance, 11/22/23 9:48:00 EST, [facility], 167, cm, 05/29/23 18:21:00 EDT, Height, [...] Confirmed Active FH: 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 (mom) Confirmed Active [facility] current use of opiate analgesic Confirmed Active [...] Team Personnel Name: Ermelinda Rice RN Position: [facility] RN Member Role: Primary Care Nurse Name: Tri Sebastian RN Position: S RN Member Role: Primary Care Nurse Name: Demario Nassar MD Position: [facility] Physician - Primary Care Member Role: PCP Address: Address: [address] [place] [address] Adult & [place] [address]- Care Team Related Persons Name: EPIFANIO STYLES Address: [address] [place] [id number] Name: DEUCE SEE
--- OUTSIDE RECORDS SUMMARY | 2023-12-11 08:23 | XMS_ITS | Continuity of Care Document ---
Author Name Unknown Organization [facility] Address [address] [place] [address]- Care Team Providers Care Water Resource Consultant Name Role Phone Cesario SCHULER, Demario Primary Care Physician Encounter [facility] Date(s): 02/14/22 - 03/16/22 [facility] [address] [place], [place] [address] Allergies, Adverse Reactions, Alerts Substance Reaction [...] (oldterm) 12 10/08/07 Give n 1Result Comment: [id number] given w/out incident 2Result Comment: [facility]: 18090-374-01 3Result Comment: [id number] given w/out incident 4Result Comment: [08/17/2018] [facility] [id number] 5Result Comment: [08/31/2017] given w/out incident [facility]: [id number] 6Result Comment: [08/21/2014] given w/o incident...AA 7Result Comment: [07/25/2013] given w/out incident 8Admin Note: vis sheet given. 9Admin Note: historial data 10Result Comment: [id number] 11Admin Note: mass bio 12Admin Note: sanofi [...] EVERY USE., # 36 Gm, 3 Refills, [facility], 90, INHALE 2 PUFFS BY MOUTH TWO TIMES A DAY RINSE MOUTH AFTER EVERY USE., 177, cm, 10/19/21 10:00:00 EST, Height, 108, kg... Start Date: 12/21/21 Status: Ordered amitriptyline 100 mg oral tablet 1 tablet = 100 mg, By Mouth, Daily at bedtime, # 90 tablet, 3 Refills, Maintenance, 06/02/21 11:36:00 EDT, [facility] 177, cm, 06/02/21 11:35:00 EDT, Height, 108, kg, 05/24/21 19:44:00 EDT, Dry Weight Start Date: 06/02/21 Stop Date: 05/28/22 Status: Ordered amLODIPine 10 mg oral tablet 10 mg, 1, tablet, By Mouth, Daily, # 90 tablet, Refills 1, Tot. Refills 1, Maintenance, 05/28/22 11:36:00 EDT, Route to Pharmacy Electronically, [facility], 177, cm, 10/19/21 10:00:00EST, Height, [...] Refills, Maintenance, 09/16/21 9:24:00 EST, ER Tablet, [facility], increase in dose, 177, cm, 06/02/21 11:35:00 EDT, Height, 108, kg, 05/24/21 19:44:00 EDT, Dry Weight Start Date: 09/16/21 Stop Date: 09/11/22 Status: Ordered busPIRone 10 mg oral tablet 15 mg, 1.5, tablet, By Mouth, 2 times a day, # 270 tablet, Refills 3, Tot. Refills 3, Maintenance, 09/16/21 9:24:00 EST, Route to Pharmacy Electronically, [facility], 177, cm, 06/02/21 11:35:00 EDT, Height, 108, kg, 05/24/21 19:44:00 E... Start Date: 09/16/21 Stop Date: 09/11/22 Status: Ordered cetirizine 10 mg oral tablet 1 tablet, By Mouth, Daily, PRN NEEDED FOR ALLERGY SYMPTOMS, # 30 tablet, 5 Refills, [facility], 177, cm, 09/16/21 10:06:00 EST, Height, [...] (SEVERE ALLERGY), # 2 Unknown, 1 Refills, [facility], 177, cm, 06/02/21 11:35:00 EDT, Height, 108, kg, 05/24/21 19:44:00 EDT, Dry Weight Start Date: 09/08/21 Status: Ordered gabapentin 300 mg oral capsule See Instructions, TAKE 3 CAPSULES BY MOUTH IN THE MORNING, 3 CAPSULES EARLY PM AND 4 CAPSULES AT BEDTIME., # 900 capsule, Refills 3, Instructions Replace Required Details, Route to Pharmacy Electronically, [facility], 177, cm, 12/21/21 8:59:... Start Date: 01/11/22 Status: Ordered gloves, large gloves, large, See Instructions, # 50 each, Refills 11, Tot. Refills 11, Maintenance, use when handling soiled linen Dx: N39.4, 03/20/20 17:02:00 EDT, Supply Start Date: 03/20/20 Status: Ordered ibuprofen 800 mg oral tablet 800 mg, 1, tablet, By Mouth, 3 times a day, PRN, for 30 days, # 90 tablet, Refills 0, Tot. Refills 0, Acute 03/24/22 15:14:00 EDT, for pain, 02/22/22 15:14:00 EDT, Route to Pharmacy Electronically, [facility], Partial fill upon patient... Start Date: 02/22/22 Stop Date: 03/24/22 Status: Ordered losartan 50 mg oral tablet 50 mg, 1, tablet, By Mouth, Daily, # 90 tablet, Refills 3, Tot. Refills 3, Maintenance, 06/02/21 11:36:00 EDT, Route to Pharmacy Electronically, [facility], lower dose, 177, cm, 06/02/21 11:35:00 EDT, Height, 108, kg, 05/24/21 19:44:00... Start Date: 06/02/21 Stop Date: 05/28/22 Status: Ordered Mapap Arthritis Pain 650 mg oral tablet, extended release 2 tablet, By Mouth, Every 8 hours, PRN NEEDED FOR PAIN FOR, for 30 days, # 90 tablet, 9 Refills,Physician Stop 10/17/22 9:00:00 EST, 12/21/21 9:00:00 EST, [facility], 177, cm, 12/21/21 8:59:00 EST, [...] 56tablet, 0 Refills, Maintenance, 03/15/22 16:28:00 EDT, [facility], may dispense today. cancel previous Rx for 03/17 fill, 177, cm, 12/01... Start Date: 03/15/22 Status: Ordered Periwash Perineal [...] 01/11/22 15:16:00 EDT, Route to Pharmacy Electronically, [facility], Partial fill uponpatient request if the prescription is for a schedu... Start Date: 01/11/22 Stop Date: 07/10/22 Status: Ordered Ventolin HFA 108 mcg/inh inhalation aerosol with adapter 2 puffs, Inhalation, 4 times a day, PRN NEEDED FOR WHEEZING, # 18 Gm, 6 Refills, 12/28/21 11:00:00 EST, [facility] 177, cm, 12/21/21 8:59:00 EST, Height, 108, kg, 05/24/21 19:44:00 EDT, Dry Weight Start Date: 12/28/21 Status: Ordered Zofran 4 mg oral tablet 1 tablet = 4 mg, By Mouth, Every 8 hours, PRN Nausea & Vomiting, # 12 tablet, 0 Refills, Acute 06/09/22 10:43:00 EDT, 06/09/21 10:43:00 EDT, Tablet, [facility]., Partial fill upon patient request if the prescription is for a schedule II... Start Date: 06/09/21 Stop Date: 06/09/22 Status: Ordered zolpidem 10 mg oral tablet 1 tablet, By Mouth, Daily at bedtime, PRN NEEDED FOR INSOMNIA, # 28 tablet, 0 Refills, Acute 03/17/22 7:17:00 EDT, 02/15/22 7:16:00 EDT, [facility] refill when due, 177, cm, 12/21/21 8:59:00 EST, Height, 114.4, kg, 02/14/22 21:57:0... 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
--- OUTSIDE RECORDS SUMMARY | 2023-12-11 08:23 | XMS_ITS | Continuity of Care Document ---
Author Name Unknown Organization [facility] Address [address] [place] [address]- Care Team Providers Care Automotive Service Director Name Role Phone Demario Nassar MD Primary Care Physician Encounter [facility] Date(s): 10/07/19 - 12/14/19 [facility] [address] [address]- [facility] Attending Physician: Elijah Euceda MD Admitting Physician: Elijah Euceda MD Allergies, Adverse Reactions, Alerts Substance Reaction [...] (oldterm) 10 10/08/07 Give n 1Result Comment: [id number] given w/out incident 2Result Comment: [08/17/2018] [facility] 67136-852-67 3Result Comment: [08/31/2017] given w/out incident [facility]: [id number] 4Result Comment: [08/21/2014] given w/o incident...AA 5Result Comment: [07/25/2013] given w/out incident 6Admin Note: vis sheet given. 7Admin Note: historial data 8Result Comment: [id number] 9Admin Note: mass bio 10Admin Note: sanofi Medications acetaminophen 650 mg oral tablet, extended release 1 tablet = 650 mg, By Mouth, Every 8 hours, PRN Pain , Moderate, for 30 days, # 90 tablet, 5 Refills, Acute 12/30/19 15:40:26 EST, 07/03/19 15:40:26 EDT, ER Tablet Start Date: 07/03/19 Stop Date: 12/30/19 Status: Ordered Advair HFA 115 mcg / [...] 04/23/19 10:58:48 EDT, Route to Pharmacy Electronically, [id number], [facility] Start Date: 04/23/19 Stop Date: 04/17/20 [...] 04/15/19 17:12:39 EDT, Route to Pharmacy Electronically, [id number], [facility] Start Date: 04/15/19 Stop Date: 04/09/20 [...] Status: Ordered FLUoxetine 20 mg oral capsule 60 mg, 3, capsule, By Mouth, Daily, # 270 capsule, Refills 3, Tot. Refills 3, Maintenance, 01/22/1911:29:30 EDT, Route to Pharmacy Electronically, [id number], [facility], Pt howie stop cymbalta Start Date: 01/22/19 Stop Date: 01/17/20 Status: Ordered gabapentin 300 mg oral capsule [...] tablet, Refills 3, Tot. Refills 3, Maintenance, 05/30/19 13:41:08 EDT, Route to Pharmacy Electronically, [id number], [facility] Start Date: 05/30/19 Stop Date: 05/24/20 Status: Ordered losartan 50 mg oral tablet 50 mg, 1, tablet, By Mouth, Daily, # 90 tablet, Refills 3, Tot. Refills 3, Maintenance, 01/22/19 11:26:31 EDT, Route to Pharmacy Electronically, [id number], [facility], lower dose Start Date: 01/22/19 Stop Date: 01/17/20 Status: Ordered Meclizine By Mouth, 3 times a day, 0 Refills, Maintenance, 12/14/18 15:25:26 EST Start Date: 12/14/18 Status: Ordered nystatin topical 459225 u/gm powder See Instructions, APPLY TOPICALLY TO AFFECTED AREA TWO TIMES A DAY FOR 14 DAYS, # 30 Gm, 0 Refills,[facility], APPLY TOPICALLY TO AFFECTED [...] # 56 tablet, 0 Refills, Hard Stop 12/23/19 10:28:00 EST, 11/25/19 10:28:00 EST, ER Tablet, [facility]... Start Date: 11/25/19 Stop Date: 12/23/19 Status: Ordered Protonix 40 mg oral delayed release tablet 1 tablet = 40 mg, By Mouth, Daily, # 90 tablet, 3 Refills, Maintenance, 04/23/19 10:58:45 EDT, EC Tablet Start Date: 04/23/19 Stop Date: 04/17/20 Status: Ordered Ventolin HFA 108 mcg/inh inhalation aerosol with adapter 2 puffs, Inhalation, 4 times a day, PRN for wheezing, # 1 each, 2 Refills, Soft Stop, 04/23/19 10:59:31 EDT, Aerosol, replaces proair Start Date: 04/23/19 Stop Date: 07/22/19 Status: Ordered zolpidem 10 mg oral tablet 1 tablet = 10 mg, By Mouth, Daily at bedtime, PRN as needed for insomnia, # 28 tablet, 0 Refills, Soft Stop, 11/25/19 10:29:00 EST, [facility] 167, cm, 10/07/19 10:55:00 EST, Height Start Date: 11/25/19 Stop Date: 12/23/19 Status: Ordered Problem List Condition Effective Dates [...] mellitus (aunt)(Confirmed) Active FH: 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 (mom)(Confirmed) Active nursing home current use 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
--- OUTSIDE RECORDS SUMMARY | 2023-12-11 08:23 | XMS_ITS | Continuity of Care Document ---
Author Name Unknown Organization [facility] Address [address] [place] [address]- Care Team Providers Care Tattoo And Body Artist Name Role Phone Demario Nassar MD Primary Care Physician Encounter [facility] Date(s): 01/17/22 - 02/16/22 [facility] [address] [place], [place] [address] Allergies, Adverse Reactions, Alerts Substance Reaction [...] (oldterm) 12 10/08/07 Give n 1Result Comment: [id number] given w/out incident 2Result Comment: [facility]: [id number] 3Result Comment: [id number] given w/out incident 4Result Comment: [08/17/2018] [facility] [id number] 5Result Comment: [08/31/2017] given w/out incident [facility]: [id number] 6Result Comment: [08/21/2014] given w/o incident...AA 7Result Comment: [07/25/2013] given w/out incident 8Admin Note: vis sheet given. 9Admin Note: historial data 10Result Comment: [id number] 11Admin Note: mass bio 12Admin Note: sanofi [...] EVERY USE., # 36 Gm, 3 Refills, [facility], 90, INHALE 2 PUFFS BY MOUTH TWO TIMES A DAY RINSE MOUTH AFTER EVERY USE., 177, cm, 10/19/21 10:00:00 EST, Height, 108, kg... Start Date: 12/21/21 Status: Ordered amitriptyline 100 mg oral tablet 1.5 tablet = 150 mg, By Mouth, Daily at bedtime, # 135 tablet, 3 Refills, Maintenance, 06/02/21 11:36:00 EDT, [facility]t, [facility] 177, cm, 06/02/21 11:35:00 EDT, Height, 108, kg, 05/24/21 19:44:00 EDT, Dry Weight Start Date: 06/02/21 Stop Date: 05/28/22 Status: Ordered amLODIPine 10 mg oral tablet 10 mg, 1, tablet, By Mouth, Daily, # 90 tablet, Refills 1, Tot. Refills 1, Maintenance, 05/28/22 11:36:00 EDT, Route to Pharmacy Electronically, [facility], 177, cm, 10/19/21 10:00:00EST, Height, [...] Refills, Maintenance, 09/16/21 9:24:00 EST, ER Tablet, [facility], increase in dose, 177, cm, 06/02/21 11:35:00 EDT, Height, 108, kg, 05/24/21 19:44:00 EDT, Dry Weight Start Date: 09/16/21 Stop Date: 09/11/22 Status: Ordered busPIRone 10 mg oral tablet 10 mg, 1, tablet, By Mouth, 2 times a day, # 180 tablet, Refills 3, Tot. Refills 3, Maintenance, 09/16/21 9:24:00 EST, Route to Pharmacy Electronically, [facility], 177, cm, 06/02/21 11:35:00 EDT, [...] 06/02/21 11:36:00 EDT, Route to Pharmacy Electronically, [facility], lower dose, 177, cm, 06/02/21 11:35:00 EDT, Height, 108, kg, 05/24/21 19:44:00... Start Date: 06/02/21 Stop Date: 05/28/22 Status: Ordered Mapap Arthritis Pain 650 mg oral tablet, extended release 2 tablet, By Mouth, Every 8 hours, PRN NEEDED FOR PAIN FOR, for 30 days, # 90 tablet, 9 Refills,Physician Stop 10/17/22 9:00:00 EST, 12/21/21 9:00:00 EST, [facility], 177, cm, 12/21/21 8:59:00 EST, [...] 28 DAYS, # 56tablet, 0 Refills, Maintenance, 02/15/22 7:16:00 EDT, [facility], 177, cm, :59:00 EST, Height, 114.4, kg, 02/14/22 21:57:00 E... Start Date: 02/15/22 Status: Ordered Periwash Perineal cleaning solution Periwash [...] 01/11/22 15:16:00 EDT, Route to Pharmacy Electronically, [facility], Partial fill uponpatient request if the prescription is for a schedu... Start Date: 01/11/22 Stop Date: 07/10/22 Status: Ordered Ventolin HFA 108 mcg/inh inhalation aerosol with adapter 2 puffs, Inhalation, 4 times a day, PRN NEEDED FOR WHEEZING, # 18 Gm, 6 Refills, 12/28/21 11:00:00 EST, [facility]., 177, cm, 12/21/21 8:59:00 EST, Height, 108, kg, 05/24/21 19:44:00 EDT, Dry Weight Start Date: 12/28/21 Status: Ordered Zofran 4 mg oral tablet 1 tablet = 4 mg, By Mouth, Every 8 hours, PRN Nausea & Vomiting, # 12 tablet, 0 Refills, Acute 06/09/22 10:43:00 EDT, 06/09/21 10:43:00 EDT, Tablet, [facility], Partial fill upon patient request [...]
--- OUTSIDE RECORDS SUMMARY | 2023-12-11 08:23 | XMS_ITS | Continuity of Care Document ---
Author Name Unknown Organization [facility] Address [address] [place] [address]- Care Team Providers Care Manager Package Name Role Phone Demario Nassar MD Primary Care Physician Encounter [facility] Date(s): 05/24/21 - 05/26/[address] [address]- Discharge Disposition: A-D/C Home Attending Physician: Stephan Landin DO Admitting Physician: Zachary Eastman DO Referring Physician: Not on Staff, Referring MD [...] Comment: [facility]: 02197-401-02 2Result Comment: [id number] given w/out incident 3Result Comment: [08/17/2018] [facility] [id number] 4Result Comment: [08/31/2017] given w/out incident [facility]: [id number] 5Result Comment: [08/21/2014] given w/o incident...AA 6Result Comment: [07/25/2013] given w/out incident 7Admin Note: vis sheet given. 8Admin Note: historial data 9Result Comment: [id number] 10Admin Note: mass bio 11Admin Note: sanofi [...] each, 3 Refills,Maintenance, 04/16/20 10:16:00 EDT, [facility] replaces Rx for symbicort not covered by her insurance, 2 puffs Inhalation 2... Start Date: 04/16/20 Stop Date: 04/11/21 Status: Ordered amitriptyline 100 mg oral tablet 1.5 tablet = 150 mg, By Mouth, Daily at bedtime, # 135 tablet, 3 Refills, Maintenance, 04/16/20 10:16:00 EDT, Tablet, [facility] 167, cm, 01/14/20 9:59:00 EDT, Height Start Date: 04/16/20 Stop Date: 04/11/21 Status: Ordered amLODIPine 10 mg oral tablet 10 mg, Tablet, By Mouth, 05/26/21 9:00:00 EDT Start Date: 05/26/21 Stop Date: 05/26/21 Status: Completed amLODIPine 10 mg oral tablet 10 mg, 1, tablet, By Mouth, Daily, # 90 tablet, Refills 3, Tot. Refills 3, Maintenance, 04/16/20 10:16:00 EDT, Route to Pharmacy Electronically, [facility], 167, cm, 01/14/20 9:59:00 EDT, Height Start Date: 04/16/20 Stop Date: 04/11/21 Status: Ordered atorvastatin 20 mg oral tablet 1 tablet = 20 mg, By Mouth, Daily, # 90 tablet, 3 Refills, Maintenance, 05/11/20 9:45:00 EDT, Tablet, [facility], 167, cm, 01/14/20 9:59:00 EDT, Height Start Date: 05/11/20 Stop Date: 05/06/21 Status: Ordered Augmentin 875 mg-125 mg oral tablet 1 tablet, By Mouth, Every 12 hours, for 7 days, # 14 tablet, 0 Refills, Acute 06/02/21 12:19:00 EDT, 05/26/21 12:19:00 EDT, Tablet, [id number], Partial fill upon patient request if the prescription is for a schedule II opioid drug., 1... Start Date: 05/26/21 Stop Date: 06/02/21 Status: Ordered Bladder pads 120/case Bladder pads [...] Refills, Maintenance, 09/29/20 14:40:00 EST, ER Tablet, [facility]., increase in dose, 167, cm, 01/14/20 9:59:00 EDT, Height Start Date: 09/29/20 Stop Date: 09/24/21 Status: Ordered busPIRone 10 mg oral tablet 10 mg, 1, tablet, By Mouth, 2 times a day, # 180 tablet, Refills 3, Tot. Refills 3, Maintenance, 07/07/20 12:31:00 EDT, Route to Pharmacy Electronically, [facility], 167, cm, 209:59:00 EDT, Height Start Date: 07/07/20 Stop Date: 07/02/21 Status: Ordered cetirizine 10 mg oral tablet 1 tablet = 10 mg, By Mouth, Daily, PRN for allergy symptoms, # 30 tablet, 8 Refills, Maintenance, 09/01/20 17:26:00 EST, Tablet, [facility], 167, cm, 01/14/20 9:59:00 EDT, Height Start Date: 09/01/20 Stop Date: 05/29/21 Status: Ordered chlorthalidone 25 mg oral tablet 25 mg, 1, tablet, By Mouth, Daily, # 90 tablet, Refills 3, Tot. Refills 3, Maintenance, 04/16/20 10:15:00 EDT, Route to Pharmacy Electronically, [facility], replaces hydrochlorothiazide, 167, cm, 01/14/20 9:59:00 EDT, [...] kit, 1 Refills, Soft Stop,04/16/20 10:16:00 EDT, [facility], 167, cm, 01/14/20 9:59:00 EDT, Height Start Date: 04/16/20 Status: Ordered FLUoxetine 20 mg oral capsule 3, capsule, By Mouth, Daily, # 270 capsule, Refills 3, Tot. Refills 0, Maintenance, 02/21/20 15:09:00 EDT, Route to Pharmacy Electronically, [facility], 167, cm, 01/14/20 9:59:00 EDT, Height Start Date: 02/21/20 Stop Date: 05/21/20 Status: Ordered gabapentin 300 mg oral capsule 900 mg, Capsule, By Mouth, 05/26/21 9:00:00 EDT Start Date: 05/26/21 Stop Date: 05/26/21 Status: Completed gabapentin 300 mg oral capsule See Instructions, [...] 01/14/20 10:17:00 EDT, Route to Pharmacy Electronically, [facility], lower dose, 167, cm, 01/14/20 9:59:00 EDT, Height Start Date: 01/14/20 Stop Date: 01/08/21 Status: Ordered losartan 50 mg oral tablet 50 mg, Tablet, By Mouth, 05/26/21 9:00:00 EDT Start Date: 05/26/21 Stop Date: 05/26/21 Status: Completed Mapap Arthritis Pain 650 mg oral tablet, extended release See Instructions, TAKE 2 TABLETS BY MOUTH EVERY 8 HOURS NEEDED FOR PAIN FOR 30 DAYS, # 90 tablet, 5 Refills, Acute, [facility], 167, cm, 01/14/20 9:59:00 EDT, Height Start Date: 04/15/21 Status: Ordered OxyCONTIN 10 mg oral tablet, extended release 20 mg, ER Tablet, By Mouth, 05/26/21 9:00:00 EDT Start Date: 05/26/21 Stop Date: 05/26/21 Status: Completed OxyCONTIN 15 mg oral tablet, extended release See Instructions, TAKE 1 TABLET BY MOUTH EVERY 12 HOURS NEEDED FOR SEVERE PAIN FOR 28 DAYS, # 56tablet, 0 Refills, Maintenance, 05/12/21 14:36:00 EDT, [facility], 05/13/21, 167, cm, 01/14/20 9:59:00 EDT, Height [...] 08/02/21 17:29:00 EDT, 02/03/21 17:29:00 EDT, Aerosol, [facility], replaces proair, 167, cm, 01/14/20 9:59:00 EDT, Height Start Date: 02/03/21 Stop Date: 08/02/21 Status: Ordered zolpidem 10 mg oral tablet 1 tablet = 10 mg, By Mouth, Daily at bedtime, PRN as needed for insomnia, # 28 tablet, 0 Refills, Soft Stop, 05/07/21 12:55:00 EDT, [facility]., 167, cm, 01/14/20 9:59:00 EDT, Height Start Date: 05/07/21 Stop Date: 06/04/21 Status: Ordered Problem List Condition Effective Dates [...] mellitus (aunt)(Confirmed) Active FH: 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 (mom)(Confirmed) Active detention current use 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 type 2, controlled(Confirmed) Active Urine incontinence(Confirmed) Active Results Orders for Microbiology Reports Name Date Blood Culture 05/24/21 Blood Culture #2 05/24/21 Group A Strep Screen and Culture 05/24/21 Microbiology Reports TEST:Blood Culture, Second Order STATUS:Unauthenticated BODY SITE: SOURCE:Blood COLLECTED DATE/TIME:05/24/21 4:17 PM Blood Culture, Second Order SPECIMEN DESCRIPTION : BLOOD RAC SPECIAL REQUESTS : NONE CULTURE : NO GROWTH AFTER 48 HOURS REPORT STATUS : PRELIMINARY REPORT TEST:Blood Culture STATUS:Unauthenticated BODY SITE: SOURCE:Blood COLLECTED DATE/TIME:05/24/21 3:57 PM Blood Culture SPECIMEN DESCRIPTION : BLOOD LAC SPECIAL REQUESTS : NONE CULTURE : NO GROWTH AFTER 48 HOURS REPORT STATUS : PRELIMINARY REPORT TEST:Group A Strep Screen and Culture STATUS:Unauthenticated BODY SITE: SOURCE:THROAT COLLECTED DATE/TIME:05/24/21 2:45 PM Group A Strep Screen and Culture SPECIMEN DESCRIPTION : THROAT SWAB SPECIAL REQUESTS : NONE DIRECT EXAM : RAPID GROUP A RESULT IS NEGATIVE, REFER TO CULTURE RESULT. CULTURE : NO BETA STREP ISOLATED TO DATE REPORT STATUS : PRELIMINARY REPORT Radiology Reports * Exam Date Time Procedure Performing Provider Status 05/24/21 3:22 PM Chest 2 Views Frontal and Lat Aki Ruiz; Hattie (Verified) Notes: (Chest 2 Views Frontal and Lat) Reason For Exam: Persistent Cough RESULT: Chest 2 Views Frontal and Lat Chest 2 Views Frontal and Lat CLINICAL INDICATION: Cough. COMPARISON: Chest x-ray, 02/10/2016. FINDINGS: The cardiac silhouette is within normal limits. Hilar and mediastinal contours are normal. Patchy bibasilar opacity is noted. There is no pleural effusion, pneumothorax, or evidence of CHF. No acute osseous abnormality is noted. Surgical clips are seen in the upper abdomen bilaterally. IMPRESSION: Patchy bibasilar opacity may represent atelectasis or pneumonia. WSN: [id number] Ordering Physician: Koko Cheek Dictated By: Nohelia Ferrell MD Dictated Date/Time: 05/24/21 3:24 pm Reviewed By: Nohelia Ferrell MD Signed By: Nohelia Ferrell MD Signed Date/Time: 05/24/21 3:24 pm Transcribed By: JAZLYN Transcribed Date/Time: 05/24/21 3:23 pm Vital Signs Most recent to oldest [Reference Range]: 1 2 3 Height 177 cm (05/26/21 12:02 PM) 177 cm (05/26/21 6:04 AM) 177 cm (05/26/21 5:12 AM) Weight 103.0 kg (05/24/21 8:00 PM) 108 kg (05/24/21 7:44 PM) 108 kg (05/24/21 7:13 PM) Oxygen Saturation [94-100 %] 100 % (05/26/21 12:02 PM) 94 % (05/26/21 6:04 AM) 93 % *L* (05/26/21 5:12 AM) Pulse Rate [55-90 bpm] 92 bpm *H* (05/26/21 12:02 PM) 66 bpm (05/26/21 5:12 AM) 59 bpm (05/25/21 8:18 PM) Body Mass Index [18.5-24.99] 34.47 *>HHI* (05/24/21 7:13 PM) Blood Pressure [90-138/55-84 mm Hg] 112/71mm Hg (05/26/21 8:19 AM) 112/71mm Hg (05/26/21 8:18 AM) 112/64mm Hg (05/26/21 5:12 AM) Respiratory Rate [16-30 br/min] 18 br/min (05/26/21 12:02 PM) 16 br/min (05/26/21 9:18 AM) 16 br/min (05/26/21 9:16 AM) Temperature [96.8-100.4 DegF] 99.1 DegF (05/26/21 12:02 PM) 98.4 DegF (05/26/21 5:12 AM) 98.4 DegF (05/25/21 8:18 PM) Mode of Delivery (Oxygen) Room air (05/26/21 12:02 PM) Room air (05/25/21 8:18 PM) Room air (05/25/21 1:25 PM) Blood pressure sites Arm, right (05/26/21 5:12 AM) Arm, left (05/25/21 8:18 PM) Arm, right (05/25/21 1:25 PM) Temperature Route Oral (05/26/21 12:02 PM) Oral (05/26/21 5:12 AM) Oral (05/25/21 8:18 PM) Dry Weight 108 kg (05/24/21 7:44 PM) 108 kg (05/24/21 7:13 PM) 108 kg (05/24/21 2:32 PM) Social History Social History Type Response Smoking Status Former smoker entered on: 12/04/14 Sex
--- OUTSIDE RECORDS SUMMARY | 2023-12-11 08:23 | XMS_ITS | Continuity of Care Document ---
Author Name Unknown Organization [facility] Address [address] [place] [address]- Care Team Providers Care Phone Operator Name Role Phone Cesario SCHULER, Demario Primary Care Physician Encounter [facility] Date(s): 12/06/22 - 01/05/23 [facility] [address] [place], [place] [address] Allergies, Adverse Reactions, Alerts [...] Reason: Other : not documented 2Result Comment: [id number] given w/out incident 3Result Comment: [id number] given w/out incident 4Result Comment: [facility]: 53624-587-51 5Result Comment: [id number] given w/out incident 6Result Comment: [08/17/2018] [facility] 23845-161-94 7Result Comment: [08/31/2017] given w/out incident [facility]: [id number] 8Result Comment: [08/21/2014] given w/o incident...AA 9Result Comment: [07/25/2013] given w/out incident 10Admin Note: vis sheet given. 11Admin Note: historial data 12Result Comment: [id number] 13Admin Note: mass bio 14Admin Note: sanofi [...] 11/25/22 15:31:00 EST, Route to Pharmacy Electronically, [facility], 177, cm, 12/21/21 8:59:00 EST, Height, [...] Refills, Maintenance, 10/21/22 12:33:00 EST, ER Tablet, [facility], increase in dose, 177, cm, 12/21/21 [...] 08/02/22 15:37:00 EDT, Route to Pharmacy Electronically, [facility], replaces spironolactone, 177, cm, 12/21/21 8:59:00 [...] (SEVERE ALLERGY), # 2 Unknown, 1 Refills, [facility], 177, cm, 06/02/21 11:35:00 EDT, Height, 108, kg, 05/24/21 19:44:00 EDT, Dry Weight Start Date: 09/08/21 Status: Ordered gabapentin 300 mg oral capsule See Instructions, TAKE 3 CAPSULES BY MOUTH IN THE MORNING, 3 CAPSULES EARLY PM AND 4 CAPSULES AT BEDTIME., # 900 capsule, Refills 3, Maintenance, 12/23/22 13:41:00 EST, Instructions Replace Required Details, [facility] Start Date: 12/23/22 Status: Ordered gloves, large gloves, large, See Instructions, # 50 each, Refills 11, Tot. Refills 11, Maintenance, use when handling soiled linen Dx: N39.4, 03/20/20 17:02:00 EDT, Supply Start Date: 03/20/20 Status: Ordered losartan 100 mg oral tablet 1 tablet = 100 mg, By Mouth, Daily, # 90 tablet, 4 Refills, Maintenance, 03/31/22 15:03:00 EDT, Tablet, [facility], increase in dose, 177, cm, 12/21/21 8:59:00 EST, Height, 114.4, kg,02/14/22 21:57:00 EDT, Dry Weight Start Date: 03/31/22 Stop Date: 06/24/23 Status: Ordered Mapap Arthritis Pain 650 mg oral tablet, extended release 2 tablet, By Mouth, Every 8 hours, PRN NEEDED FOR PAIN, # 90 tablet, 11 Refills, Maintenance, 08/12/22 10:25:00 EDT, [facility], 177, cm, 12/21/21 8:59:00 EST, Height, 114.4, [...] , Severe, # 56 tablet, 0 Refills, Maintenance,12/20/22 17:31:00 EST, [facility], resent, 167, cm, 12/05/22 10:53:00 EST, Height, 114.4, kg, 02/14/22 21:57:00 EDT, Dry Weight Start Date: 12/20/22 Stop Date: 01/17/23 Status: Ordered Protonix 40 mg oral delayed [...] Gm, 5 Refills, Maintenance, 12/15/22 14:09:00 EST, [facility] 167, cm, 12/05/22 10:53:00 EST, [...] Confirmed Active FH: 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 (mom) Confirmed Active care home current use of opiate analgesic Confirmed [...] Team Personnel Name: Ermelinda Rice RN Position: [facility] RN Member Role: Primary Care Nurse Name: Tri Sebastian RN Position: [facility] RN Member Role: Primary Care Nurse Name: Demario Nassra MD Position: [facility] Primary Care Physician Member Role: PCP Address: Address: [address] [place] [address] Adult & [place] [address]- Care Team Related Persons Name: JENSEN EPIFANIO Address: home [address] [place] [address] [place] [id number] Name: DEUCE SEE
--- OUTSIDE RECORDS SUMMARY | 2023-12-11 08:23 | XMS_ITS | Continuity of Care Document ---
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 Name Role Phone Demario Nassar MD Primary Care Physician Encounter [facility] Date(s): 06/03/21 - 07/03/21 [facility] [address] [place], [place] [address] Allergies, Adverse Reactions, Alerts Substance Reaction [...] (oldterm) 11 10/08/07 Give n 1Result Comment: [facility]: [id number] 2Result Comment: [id number] given w/out incident 3Result Comment: [08/17/2018] [facility] [id number] 4Result Comment: [08/31/2017] given w/out incident [facility]: [id number] 5Result Comment: [08/21/2014] given w/o incident...AA 6Result Comment: [07/25/2013] given w/out incident 7Admin Note: vis sheet given. 8Admin Note: historial data 9Result Comment: [id number] 10Admin Note: mass bio 11Admin Note: sanofi [...] each, 3 Refills,Maintenance, 05/28/21 18:23:00 EDT, Aerosol, [facility]/pharmacy #[id number], replaces Rx for symbicort not covered by her insurance, 2 puffs Inhalation 2 times a... Start Date: 05/28/21 Stop Date: 05/23/22 Status: Ordered albuterol 0.083% inhalation solution 3 mL = 2.5 mg, Inhalation, Every 6 hours, PRN for wheezing, Dx: COPD J44.9, # 60 each, 2 Refills, Maintenance, 06/02/21 11:29:00 EDT, [facility], [facility] upon patient request if the prescription is for a schedule II opio... Start Date: 06/02/21 Status: Ordered amitriptyline 100 mg oral tablet 1.5 tablet = 150 mg, By Mouth, Daily at bedtime, # 135 tablet, 3 Refills, Maintenance, 06/02/21 11:36:00 EDT, Tablet, [facility], 177, cm, 06/02/21 11:35:00 EDT, Height, 108, kg, 05/24/21 19:44:00 EDT, Dry Weight Start Date: 06/02/21 Stop Date: 05/28/22 Status: Ordered amLODIPine 10 mg oral tablet 10 mg, 1, tablet, By Mouth, Daily, # 90 tablet, Refills 3, Tot. Refills 3, Maintenance, 06/02/21 11:36:00 EDT, Route to Pharmacy Electronically, [facility], 177, cm, 06/02/21 11:35:00EDT, Height, 108, kg, 05/24/21 19:44:00 EDT, Dry We... Start Date: 06/02/21 Stop Date: 05/28/22 Status: Ordered atorvastatin 20 mg oral tablet 1 tablet = 20 mg, By Mouth, Daily, # 90 tablet, 3 Refills, Maintenance, 05/11/20 9:45:00 EDT, Tablet, [facility], 167, cm, 01/14/20 9:59:00 EDT, Height Start [...] Refills, Maintenance, 09/29/20 14:40:00 EST, ER Tablet, [facility], increase in dose, 167, cm, 01/14/20 9:59:00 EDT, Height Start Date: 09/29/20 Stop Date: 09/24/21 Status: Ordered busPIRone 10 mg oral tablet 10 mg, 1, tablet, By Mouth, 2 times a day, # 180 tablet, Refills 3, Tot. Refills 3, Maintenance, 07/07/20 12:31:00 EDT, Route to Pharmacy Electronically, [facility], 167, cm, 209:59:00 EDT, Height Start Date: 07/07/20 Stop Date: 07/02/21 Status: Ordered cetirizine 10 mg oral tablet 1 tablet = 10 mg, By Mouth, Daily, PRN for allergy symptoms, # 30 tablet, 2 Refills, Maintenance, 06/01/21 14:45:00 EDT, Tablet, [facility], 177, cm, 05/26/21 12:02:00 EDT, Height, 108, [...] kit, 1 Refills, Soft Stop,04/16/20 10:16:00 EDT, [facility], 167, cm, 01/14/20 9:59:00 EDT, Height Start Date: 04/16/20 Status: Ordered FLUoxetine 20 mg oral capsule 3, capsule, By Mouth, Daily, # 270 capsule, Refills 0, Tot. Refills 0, Maintenance, 06/01/21 17:20:00 EDT, Route to Pharmacy Electronically, [facility], 177, cm, 05/26/21 12:02:00 EDT, [...] 06/02/21 11:36:00 EDT, Route to Pharmacy Electronically, [facility], lower dose, 177, cm, 06/02/21 11:35:00 EDT, Height, 108, kg, 05/24/21 19:44:00... Start Date: 06/02/21 Stop Date: 05/28/22 Status: Ordered Mapap Arthritis Pain 650 mg oral tablet, extended release See Instructions, TAKE 2 TABLETS BY MOUTH EVERY 8 HOURS NEEDED FOR PAIN FOR 30 DAYS, # 90 tablet, 5 Refills, Acute, [facility], 167, cm, 01/14/20 9:59:00 EDT, Height Start [...] 28 DAYS, # 56tablet, 0 Refills, Maintenance, 06/10/21 7:25:00 EDT, [facility], 177, cm, 06/02/2111:35:00 EDT, Height, 108, kg, 05/24/21 19:44:00 ED... Start Date: 06/10/21 Status: Ordered OxyCONTIN 15 mg oral tablet, extended release See Instructions, TAKE 1 TABLET BY MOUTH EVERY 12 HOURS NEEDED FOR SEVERE PAIN FOR 28 DAYS, # 56tablet, 0 Refills, Maintenance, 05/12/21 14:36:00 EDT, [facility], 05/13/21, 167, cm, 01/14/20 9:59:00 EDT, [...] 12/19/21 11:01:00 EST, 06/22/21 11:01:00 EDT, Aerosol, [facility], replaces proair, 177, cm, 06/02/21 11:35:00 EDT, Height, 108, kg, 04/30... Start Date: 06/22/21 Stop Date: 12/19/21 Status: Ordered Zofran 4 mg oral tablet 1 tablet = 4 mg, By Mouth, Every 8 hours, PRN Nausea & Vomiting, # 12 tablet, 0 Refills, Acute 06/09/22 10:43:00 EDT, 06/09/21 10:43:00 EDT, Tablet, [facility], Partial fill upon patient request if the prescription is for a schedule II... Start Date: 06/09/21 Stop Date: 06/09/22 Status: Ordered zolpidem 10 mg oral tablet 1 tablet, By Mouth, Daily at bedtime, PRN NEEDED FOR INSOMNIA, # 28 tablet, 0 Refills, Acute 07/07/21 16:10:00 EDT, 06/02/21 16:10:00 EDT, [facility] [address] 177, cm, 06/02/21 11:35:00 EDT, Height, [...]
--- OUTSIDE RECORDS SUMMARY | 2023-12-11 08:23 | XMS_ITS | Continuity of Care Document ---
Author Name Unknown Organization 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 [address] [place], [place] [address] Attending Physician: Demario Nassar MD Allergies, Adverse [...] (oldterm) 11 10/08/07 Give n 1Result Comment: [facility]: [id number] 2Result Comment: [id number] given w/out incident 3Result Comment: [08/17/2018] [facility] [id number] 4Result Comment: [08/31/2017] given w/out incident [facility]: [id number] 5Result Comment: [08/21/2014] given w/o incident...AA 6Result Comment: [07/25/2013] given w/out incident 7Admin Note: vis sheet given. 8Admin Note: historial data 9Result Comment: [id number] 10Admin Note: mass bio 11Admin Note: sanofi [...] each, 3 Refills,Maintenance, 05/28/21 18:23:00 EDT, Aerosol, [facility]/pharmacy #[id number], replaces Rx for symbicort not covered by her insurance, 2 puffs Inhalation 2 times a... Start Date: 05/28/21 Stop Date: 05/23/22 Status: Ordered albuterol 0.083% inhalation solution 3 mL = 2.5 mg, Inhalation, Every 6 hours, PRN for wheezing, Dx: COPD J44.9, # 60 each, 2 Refills, Maintenance, 06/02/21 11:29:00 EDT, Solution[facility], [facility] fill upon patient request if the prescription is for a schedule II opio... Start Date: 06/02/21 Status: Ordered amitriptyline 100 mg oral tablet 1.5 tablet = 150 mg, By Mouth, Daily at bedtime, # 135 tablet, 3 Refills, Maintenance, 06/02/21 11:36:00 EDT, Tablet, [facility] 177, cm, 06/02/21 11:35:00 EDT, Height, 108, kg, 05/24/21 19:44:00 EDT, Dry Weight Start Date: 06/02/21 Stop Date: 05/28/22 Status: Ordered amLODIPine 10 mg oral tablet 10 mg, 1, tablet, By Mouth, Daily, # 90 tablet, Refills 3, Tot. Refills 3, Maintenance, 06/02/21 11:36:00 EDT, Route to Pharmacy Electronically, [facility], 177, cm, 06/02/21 11:35:00EDT, Height, 108, kg, 05/24/21 19:44:00 EDT, Dry We... Start Date: 06/02/21 Stop Date: 05/28/22 Status: Ordered atorvastatin 20 mg oral tablet 1 tablet = 20 mg, By Mouth, Daily, # 90 tablet, 1 Refills, Maintenance, 07/26/21 13:55:00 EDT, Tablet, [facility], 177, cm, 06/02/21 11:35:00 EDT, [...] Refills, Maintenance, 09/29/20 14:40:00 EST, ER Tablet, [facility], increase in dose, 167, cm, 01/14/20 9:59:00 EDT, Height Start Date: 09/29/20 Stop Date: 09/24/21 Status: Ordered busPIRone 10 mg oral tablet 10 mg, 1, tablet, By Mouth, 2 times a day, # 180 tablet, Refills 3, Tot. Refills 3, Maintenance, 07/07/20 12:31:00 EDT, Route to Pharmacy Electronically, [facility], 167, cm, 209:59:00 EDT, Height Start Date: 07/07/20 Stop Date: 07/02/21 Status: Ordered cetirizine 10 mg oral tablet 1 tablet = 10 mg, By Mouth, Daily, PRN for allergy symptoms, # 30 tablet, 2 Refills, Maintenance, 06/01/21 14:45:00 EDT, Tablet, [facility], 177, cm, 05/26/21 12:02:00 EDT, [...] kit, 1 Refills, Soft Stop,04/16/20 10:16:00 EDT, [facility], 167, cm, 01/14/20 9:59:00 EDT, Height Start Date: 04/16/20 Status: Ordered FLUoxetine 20 mg oral capsule 3, capsule, By Mouth, Daily, # 270 capsule, Refills 0, Tot. Refills 0, Maintenance, 06/01/21 17:20:00 EDT, Route to Pharmacy Electronically, [facility], 177, cm, 05/26/21 12:02:00 EDT, [...] 06/02/21 11:36:00 EDT, Route to Pharmacy Electronically, [facility], lower dose, 177, cm, 06/02/21 11:35:00 EDT, Height, 108, kg, 05/24/21 19:44:00... Start Date: 06/02/21 Stop Date: 05/28/22 Status: Ordered Mapap Arthritis Pain 650 mg oral tablet, extended release See Instructions, TAKE 2 TABLETS BY MOUTH EVERY 8 HOURS NEEDED FOR PAIN FOR 30 DAYS, # 90 tablet, 5 Refills, Acute, [facility], 167, cm, 01/14/20 9:59:00 EDT, Height [...] 56tablet, 0 Refills, Maintenance, 07/08/21 8:40:00 EDT, [facility], 177, cm, 06/02/2111:35:00 EDT, Height, [...] 12/19/21 11:01:00 EST, 06/22/21 11:01:00 EDT, Aerosol, [facility], replaces proair, 177, cm, 06/02/21 11:35:00 EDT, Height, 108, kg, 04/30... Start Date: 06/22/21 Stop Date: 12/19/21 Status: Ordered Zofran 4 mg oral tablet 1 tablet = 4 mg, By Mouth, Every 8 hours, PRN Nausea & Vomiting, # 12 tablet, 0 Refills, Acute 06/09/22 10:43:00 EDT, 06/09/21 10:43:00 EDT, Tablet, [facility], Partial fill upon patient request if the prescription is for a schedule II... 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
--- OUTSIDE RECORDS SUMMARY | 2023-12-11 08:24 | XMS_ITS | Continuity of Care Document ---
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 Role Phone Demario Nassar MD Primary Care Physician [place] [facility] [place] 07/07/22 [facility] [address] [place], [place] [address] Allergies, Adverse Reactions, Alerts Substance Reaction [...] (oldterm) 12 10/08/07 Give n 1Result Comment: [id number] given w/out incident 2Result Comment: [facility]: [id number] 3Result Comment: [id number] given w/out incident 4Result Comment: [08/17/2018] [facility] [id number] 5Result Comment: [08/31/2017] given w/out incident [facility]: [id number] 6Result Comment: [08/21/2014] given w/o incident...AA 7Result Comment: [07/25/2013] given w/out incident 8Admin Note: vis sheet given. 9Admin Note: historial data 10Result Comment: [id number] 11Admin Note: mass bio 12Admin Note: sanofi [...] EVERY USE., # 36 Gm, 3 Refills, [facility], 90, INHALE 2 PUFFS BY MOUTH TWO TIMES A DAY RINSE MOUTH AFTER EVERY USE., 177, cm, 10/19/21 10:00:00 EST, Height, 108, kg... Start Date: 12/21/21 Status: Ordered amitriptyline 100 mg oral tablet 0.5 tablet = 50 mg, By Mouth, Daily at bedtime, # 45 tablet, 3 Refills, Maintenance, 06/02/21 11:36:00 EDT, Tablet, [facility] 177, cm, 06/02/21 11:35:00 EDT, Height, 108, kg, 05/24/21 19:44:00 EDT, Dry Weight Start Date: 06/02/21 Stop Date: 05/28/22 Status: Ordered amLODIPine 10 mg oral tablet 10 mg, 1, tablet, By Mouth, Daily, # 90 tablet, Refills 1, Tot. Refills 1, Maintenance, 05/28/22 11:36:00 EDT, Route to Pharmacy Electronically, [facility], 177, cm, 10/19/21 10:00:00EST, Height, 108, kg, 05/24/21 19:44:00 EDT, Dry We... Start Date: 05/28/22 Stop Date: 11/24/22 Status: Ordered amLODIPine 10 mg oral tablet See Instructions, TAKE 1 TABLET BY MOUTH DAILY, # 90 tablet, 3 Refills, [facility], 177, cm, 12/21/21 8:59:00 [...] Refills, Maintenance, 09/16/21 9:24:00 EST, ER Tablet, [facility], increase in dose, 177, cm, 06/02/21 11:35:00 EDT, Height, 108, kg, 05/24/21 19:44:00 EDT, Dry Weight Start Date: 09/16/21 Stop Date: 09/11/22 Status: Ordered busPIRone 10 mg oral tablet 15 mg, 1.5, tablet, By Mouth, 2 times a day, # 270 tablet, Refills 3, Tot. Refills 3, Maintenance, 09/16/21 9:24:00 EST, Route to Pharmacy Electronically, [facility], 177, cm, 06/02/21 11:35:00 EDT, Height, 108, kg, 05/24/21 19:44:00 E... Start Date: 09/16/21 Stop Date: 09/11/22 Status: Ordered cetirizine 10 mg oral tablet 1 tablet, By Mouth, Daily, PRN NEEDED FOR ALLERGY SYMPTOMS, # 30 tablet, 5 Refills, 04/16/22 9:35:00 EDT, [facility], 177, cm, 12/21/21 8:59:00 EST, Height, 114.4, kg, 02/14/22 21:57:00 EDT, Dry Weight Start Date: 04/16/22 Status: Ordered chlorthalidone 25 mg oral tablet 25 mg, 1, tablet, By Mouth, Daily, # 30 tablet, Refills 1, Tot. Refills 1, Maintenance, 04/29/22 14:31:00 EDT, Route to Pharmacy Electronically, [facility], replaces spironolactone, 177, cm, 12/21/21 8:59:00 [...] (SEVERE ALLERGY), # 2 Unknown, 1 Refills, [facility], 177, cm, 06/02/21 11:35:00 EDT, Height, 108, kg, 05/24/21 19:44:00 EDT, Dry Weight Start Date: 09/08/21 Status: Ordered gabapentin 300 mg oral capsule See Instructions, TAKE 3 CAPSULES BY MOUTH IN THE MORNING, 2 CAPSULES EARLY PM AND 3 CAPSULES AT BEDTIME., # 900 capsule, Refills 3, Instructions Replace Required Details, Route to Pharmacy Electronically, [facility], 177, cm, 12/21/21 8:59:... Start Date: [...] 4 Refills, Maintenance, 03/31/22 15:03:00 EDT, Tablet, [facility], increase in dose, 177, cm, 12/21/21 8:59:00 EST, Height, 114.4, kg,02/14/22 21:57:00 EDT, Dry Weight Start Date: 03/31/22 Stop Date: 06/24/23 Status: Ordered Mapap Arthritis Pain 650 mg oral tablet, extended release 2 tablet, By Mouth, Every 8 hours, PRN NEEDED FOR PAIN FOR, for 30 days, # 90 tablet, 9 Refills,Physician Stop 10/17/22 9:00:00 EST, 12/21/21 9:00:00 EST, [facility], 177, cm, 12/21/21 8:59:00 EST, Height, [...] , Severe, # 56 tablet, 0 Refills, Maintenance,07/01/22 17:39:00 EDT, [facility], do not refill earlier than 07/04/22, 177, cm, 12/21/21 8:59:00 EST, Height, 114.4, kg, 02/14/22 21:57:... Start Date: 07/01/22 Stop Date: 07/29/22 Status: Ordered Periwash Perineal cleaning solution Periwash [...] 18 Gm, 6 Refills, 12/28/21 11:00:00 EST, [facility], 177, cm, 12/21/21 8:59:00 EST, Height, 108, kg, 05/24/21 19:44:00 EDT, Dry Weight Start Date: 12/28/21 Status: Ordered zolpidem 10 mg oral tablet 1 tablet, By Mouth, Daily at bedtime, PRN NEEDED FOR INSOMNIA, for 28 days, # 28 tablet, 0 Refills, Acute 07/18/22 14:20:00 EDT, 06/20/22 14:20:00 EDT, [facility], refill on April 15, 2022, 177, cm, 12/21/21 8:59:00 EST, Height, 114.... 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
--- OUTSIDE RECORDS SUMMARY | 2023-12-11 08:24 | XMS_ITS | Continuity of Care Document ---
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: [id number] 5Result Comment: [id number] given w/out incident 6Result Comment: [08/17/2018] [facility] [id number] 7Result Comment: [08/31/2017] given w/out incident [facility]: [id number] 8Result Comment: [08/21/2014] given w/o incident...AA 9Result Comment: [07/25/2013] given w/out incident 10Admin Note: vis sheet given. 11Admin Note: historial data 12Result Comment: [id number] 13Admin Note: mass bio 14Admin Note: sanofi [...] 11/25/22 15:31:00 EST, Route to Pharmacy Electronically, [facility], 177, cm, 12/21/21 8:59:00 EST, Height, [...] Refills, Maintenance, 10/21/22 12:33:00 EST, ER Tablet, [facility], increase in dose, 177, cm, 12/21/21 [...] 08/02/22 15:37:00 EDT, Route to Pharmacy Electronically, [facility], replaces spironolactone, 177, cm, 12/21/21 8:59:00 EST, [...] (SEVERE ALLERGY), # 2 Unknown, 1 Refills, [facility], 177, cm, 06/02/21 11:35:00 EDT, Height, 108, kg, 05/24/21 19:44:00 EDT, Dry Weight Start Date: 09/08/21 Status: Ordered gabapentin 300 mg oral capsule See Instructions, TAKE 3 CAPSULES BY MOUTH IN THE MORNING, 3 CAPSULES EARLY PM AND 4 CAPSULES AT BEDTIME., # 900 capsule, Refills 3, Maintenance, 12/23/22 13:41:00 EST, Instructions Replace Required Details, [facility] to Pharmacy Electronically, [facility] Start Date: 12/23/22 Status: Ordered gloves, large gloves, large, See Instructions, # 50 each, Refills 11, Tot. Refills 11, Maintenance, use when handling soiled linen Dx: N39.4, 03/20/20 17:02:00 EDT, Supply Start Date: 03/20/20 Status: Ordered losartan 100 mg oral tablet 1 tablet = 100 mg, By Mouth, Daily, # 90 tablet, 4 Refills, Maintenance, 03/31/22 15:03:00 EDT, Tablet, [facility] increase in dose, 177, cm, 12/21/21 8:59:00 EST, Height, 114.4, kg,02/14/22 21:57:00 EDT, Dry Weight Start Date: 03/31/22 Stop Date: 06/24/23 Status: Ordered Mapap Arthritis Pain 650 mg oral tablet, extended release 2 tablet, By Mouth, Every 8 hours, PRN NEEDED FOR PAIN, # 90 tablet, 11 Refills, Maintenance, 08/12/22 10:25:00 EDT, [facility], 177, cm, 12/21/21 8:59:00 EST, Height, [...] 56 tablet, 0 Refills, Maintenance,12/20/22 17:31:00 EST, [facility]., resent, 167, cm, 12/05/22 10:53:00 EST, Height, [...] Gm, 5 Refills, Maintenance, 12/15/22 14:09:00 EST, [facility] 167, cm, 12/05/22 10:53:00 EST, Height, [...] Confirmed Active FH: 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 (mom) 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
--- OUTSIDE RECORDS SUMMARY | 2023-12-11 08:24 | XMS_ITS | Continuity of Care Document ---
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 Name Role Phone Demario Nassar MD Primary Care Physician [place] [facility] [place] 03[place]08[place]22 - 04/07/22 [facility] [address] [place] [address]- Attending Physician: Dario Benavidez Admitting Physician: Dario Benavidez Referring Physician: AdmDario maloney Allergies, Adverse Reactions, Alerts Substance Reaction Severity [...] (oldterm) 12 10/08/07 Give n 1Result Comment: [id number] given w/out incident 2Result Comment: [facility]: 44146-134-19 3Result Comment: [id number] given w/out incident 4Result Comment: [08/17/2018] [facility] [id number] 5Result Comment: [08/31/2017] given w/out incident [facility]: [id number] 6Result Comment: [08/21/2014] given w/o incident...AA 7Result Comment: [07/25/2013] given w/out incident 8Admin Note: vis sheet given. 9Admin Note: historial data 10Result Comment: [id number] 11Admin Note: mass bio 12Admin Note: sanofi [...] EVERY USE., # 36 Gm, 3 Refills, [facility], 90, INHALE 2 PUFFS BY MOUTH TWO TIMES A DAY RINSE MOUTH AFTER EVERY USE., 177, cm, 10/19/21 10:00:00 EST, Height, 108, kg... Start Date: 12/21/21 Status: Ordered amitriptyline 100 mg oral tablet 0.5 tablet = 50 mg, By Mouth, Daily at bedtime, # 45 tablet, 3 Refills, Maintenance, 06/02/21 11:36:00 EDT, [facility], cm, 06/02/21 11:35:00 EDT, Height, 108, kg, 05/24/21 19:44:00 EDT, Dry Weight Start Date: 06/02/21 Stop Date: 05/28/22 Status: Ordered amLODIPine 10 mg oral tablet 10 mg, 1, tablet, By Mouth, Daily, # 90 tablet, Refills 1, Tot. Refills 1, Maintenance, 05/28/22 11:36:00 EDT, Route to Pharmacy Electronically, [facility], 177, cm, 10/19/21 10:00:00EST, Height, 108, [...] Refills, Maintenance, 09/16/21 9:24:00 EST, ER Tablet, [facility], increase in dose, 177, cm, 06/02/21 11:35:00 EDT, Height, 108, kg, 05/24/21 19:44:00 EDT, Dry Weight Start Date: 09/16/21 Stop Date: 09/11/22 Status: Ordered busPIRone 10 mg oral tablet 15 mg, 1.5, tablet, By Mouth, 2 times a day, # 270 tablet, Refills 3, Tot. Refills 3, Maintenance, 09/16/21 9:24:00 EST, Route to Pharmacy Electronically, [facility], 177, cm, 06/02/21 11:35:00 EDT, Height, 108, kg, 05/24/21 19:44:00 E... Start Date: 09/16/21 Stop Date: 09/11/22 Status: Ordered cetirizine 10 mg oral tablet 1 tablet, By Mouth, Daily, PRN NEEDED FOR ALLERGY SYMPTOMS, # 30 tablet, 5 Refills, [facility], 177, cm, 09/16/21 10:06:00 EST, Height, 108, [...] (SEVERE ALLERGY), # 2 Unknown, 1 Refills, [facility], 177, cm, 06/02/21 11:35:00 EDT, Height, 108, kg, 05/24/21 19:44:00 EDT, Dry Weight Start Date: 09/08/21 Status: Ordered gabapentin 300 mg oral capsule See Instructions, TAKE 3 CAPSULES BY MOUTH IN THE MORNING, 3 CAPSULES EARLY PM AND 4 CAPSULES AT BEDTIME., # 900 capsule, Refills 3, Instructions Replace Required Details, Route to Pharmacy Electronically, [facility], 177, cm, 12/21/21 8:59:... Start Date: 01/11/22 Status: Ordered gloves, large gloves, large, See Instructions, # 50 each, Refills 11, Tot. Refills 11, Maintenance, use when handling soiled linen Dx: N39.4, 03/20/20 17:02:00 EDT, Supply Start Date: 03/20/20 Status: Ordered losartan 100 mg oral tablet 1 tablet = 100 mg, By Mouth, Daily, # 90 tablet, 4 Refills, Maintenance, 03/31/22 15:03:00 EDT, [facility] in dose, 177, cm, 12/21/21 8:59:00 EST, Height, 114.4, kg,02/14/22 21:57:00 EDT, Dry Weight Start Date: 03/31/22 Stop Date: 06/24/23 Status: Ordered Mapap Arthritis Pain 650 mg oral tablet, extended release 2 tablet, By Mouth, Every 8 hours, PRN NEEDED FOR PAIN FOR, for 30 days, # 90 tablet, 9 Refills,Physician Stop 10/17/22 9:00:00 EST, 12/21/21 9:00:00 EST, [facility], 177, cm, 12/21/21 8:59:00 EST, Height, [...] 56tablet, 0 Refills, Maintenance, 03/15/22 16:28:00 EDT, [facility], may dispense today. cancel previous Rx [...] 01/11/22 15:16:00 EDT, Route to Pharmacy Electronically, [facility], Partial fill uponpatient request if the prescription is for a schedu... Start Date: 01/11/22 Stop Date: 07/10/22 Status: Ordered Ventolin HFA 108 mcg/inh inhalation aerosol with adapter 2 puffs, Inhalation, 4 times a day, PRN NEEDED FOR WHEEZING, # 18 Gm, 6 Refills, 12/28/21 11:00:00 EST, [facility]., 177, cm, 12/21/21 8:59:00 EST, Height, 108, kg, 05/24/21 19:44:00 EDT, Dry Weight Start Date: 12/28/21 Status: Ordered Zofran 4 mg oral tablet 1 tablet = 4 mg, By Mouth, Every 8 hours, PRN Nausea & Vomiting, # 12 tablet, 0 Refills, Acute 06/09/22 10:43:00 EDT, 06/09/21 10:43:00 EDT, Tablet, [facility], Partial fill upon patient request if the prescription is for a schedule II... 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
--- OUTSIDE RECORDS SUMMARY | 2023-12-11 08:24 | XMS_ITS | Continuity of Care Document ---
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 Role Phone Demario Nassar MD Primary Care Physician Encounter [facility] [place](s): 11/24/20 - 12/24/20 [facility] [address] [place], [place] [address] Allergies, Adverse Reactions, Alerts Substance Reaction [...] (oldterm) 11 10/08/07 Give n 1Result Comment: [facility]: 42582-463-27 2Result Comment: [id number] given w/out incident 3Result Comment: [08/17/2018] [facility] [id number] 4Result Comment: [08/31/2017] given w/out incident [facility]: [id number] 5Result Comment: [08/21/2014] given w/o incident...AA 6Result Comment: [07/25/2013] given w/out incident 7Admin Note: vis sheet given. 8Admin Note: historial data 9Result Comment: [id number] 10Admin Note: mass bio 11Admin Note: sanofi [...] each, 3 Refills,Maintenance, 04/16/20 10:16:00 EDT, Aerosol, [facility], replaces Rx for symbicort not covered by her insurance, 2 puffs Inhalation 2... Start Date: 04/16/20 Stop Date: 04/11/21 Status: Ordered amitriptyline 100 mg oral tablet 1.5 tablet = 150 mg, By Mouth, Daily at bedtime, # 135 tablet, 3 Refills, Maintenance, 04/16/20 10:16:00 EDT, Tablet, [facility]., 167, cm, 01/14/20 9:59:00 EDT, Height Start Date: 04/16/20 Stop Date: 04/11/21 Status: Ordered amLODIPine 10 mg oral tablet 10 mg, 1, tablet, By Mouth, Daily, # 90 tablet, Refills 3, Tot. Refills 3, Maintenance, 04/16/20 10:16:00 EDT, Route to Pharmacy Electronically, [facility], 167, cm, 01/14/20 9:59:00 EDT, Height Start [...] 3 Refills, Maintenance, 05/11/20 9:45:00 EDT, Tablet, [facility], 167, cm, 01/14/20 9:59:00 EDT, Height Start Date: 05/11/20 Stop Date: 05/06/21 Status: Ordered buPROPion 300 mg/24 hours (XL) oral tablet, extended release 1 tablet = 300 mg, By Mouth, Daily, # 90 tablet, 3 Refills, Maintenance, 09/29/20 14:40:00 EST, ER Tablet, [facility], increase in dose, 167, cm, 01/14/20 9:59:00 EDT, Height Start Date: 09/29/20 Stop Date: 09/24/21 Status: Ordered busPIRone 10 mg oral tablet 10 mg, 1, tablet, By Mouth, 2 times a day, # 180 tablet, Refills 3, Tot. Refills 3, Maintenance, 07/07/20 12:31:00 EDT, Route to Pharmacy Electronically, [facility], 167, cm, 209:59:00 EDT, Height Start Date: 07/07/20 Stop Date: 07/02/21 Status: Ordered cetirizine 10 mg oral tablet 1 tablet = 10 mg, By Mouth, Daily, PRN for allergy symptoms, # 30 tablet, 8 Refills, Maintenance, 09/01/20 17:26:00 EST, Tablet, [facility], 167, cm, 01/14/20 9:59:00 EDT, Height Start Date: 09/01/20 Stop Date: 05/29/21 Status: Ordered chlorthalidone 25 mg oral tablet 25 mg, 1, tablet, By Mouth, Daily, # 90 tablet, Refills 3, Tot. Refills 3, Maintenance, 04/16/20 10:15:00 EDT, Route to Pharmacy Electronically, [facility], replaces hydrochlorothiazide, 167, cm, 01/14/20 9:59:00 EDT, [...] kit, 1 Refills, Soft Stop,04/16/20 10:16:00 EDT, [facility], 167, cm, 01/14/20 9:59:00 EDT, Height Start Date: 04/16/20 Status: Ordered FLUoxetine 20 mg oral capsule 3, capsule, By Mouth, Daily, # 270 capsule, Refills 3, Tot. Refills 0, Maintenance, 02/21/20 15:09:00 EDT, Route to Pharmacy Electronically, [facility], 167, cm, 01/14/20 9:59:00 EDT, Height [...] 01/14/20 10:17:00 EDT, [facility], lower dose, 167, cm, 01/14/20 9:59:00 EDT, Height Start Date: 01/14/20 Stop Date: 01/08/21 Status: Ordered Meclizine By Mouth, 3 times a day, 0 Refills, Maintenance, 12/14/18 15:25:26 EST Start Date: 12/14/18 Status: Ordered nystatin topical 033626 u/gm powder See Instructions, APPLY TOPICALLY TO AFFECTED AREA TWO TIMES A DAY FOR 14 DAYS, # 30 Gm, 0 Refills,[facility], [facility], [facility], APPLY TOPICALLY TO AFFECTED [...] 12:30:00 EDT, 12/22/20 12:30:00 EST, ER Tablet, [facility]... Start Date: 12/22/20 Stop Date: [...] Refills, Soft Stop, 04/06/21 11:36:00 EDT, [facility]erosol[facility] replaces proair, 167, cm, 01/14/20 9:59:00 EDT, Height Start Date: 04/06/21 Stop Date: 10/03/21 Status: Ordered Ventolin HFA 108 mcg/inh inhalation aerosol with adapter 2 puffs, Inhalation, 4 times a day, PRN for wheezing, for 30 days, # 1 each, 5 Refills, Hard Stop 04/06/21 11:36:00 EDT, 10/08/20 11:36:00 EST, Aerosol, [facility]., replaces proair, 167, cm, 01/14/20 9:59:00 EDT, Height Start Date: 10/08/20 Stop Date: 04/06/21 Status: Ordered zolpidem 10 mg oral tablet 1 tablet = 10 mg, By Mouth, Daily at bedtime, PRN as needed for insomnia, # 28 tablet, 0 Refills, Soft Stop, 12/11/20 11:27:00 EST, [facility]., 167, cm, 01/14/20 9:59:00 EDT, Height Start Date: 12/11/20 Stop Date: 01/08/21 Status: Ordered Problem List Condition Effective Dates [...] mellitus (aunt)(Confirmed) Active FH: 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 (mom)(Confirmed) Active jail current use 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
--- OUTSIDE RECORDS SUMMARY | 2023-12-11 08:24 | XMS_ITS | Continuity of Care Document ---
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 Name Role Phone Demario Nassar MD Primary Care Physician [place] [facility] [place] 11/25/22 - 12/25/22 [facility] [address] [place], [place] [address] Allergies, Adverse Reactions, Alerts [...] Reason: Other : not documented 2Result Comment: [id number] given w/out incident 3Result Comment: [id number] given w/out incident 4Result Comment: [facility]: [id number] 5Result Comment: [id number] given w/out incident 6Result Comment: [08/17/2018] [facility] [id number] 7Result Comment: [08/31/2017] given w/out incident [facility]: [id number] 8Result Comment: [08/21/2014] given w/o incident...AA 9Result Comment: [07/25/2013] given w/out incident 10Admin Note: vis sheet given. 11Admin Note: historial data 12Result Comment: [id number] 13Admin Note: mass bio 14Admin Note: sanofi [...] 11/25/22 15:31:00 EST, Route to Pharmacy Electronically, [facility], 177, cm, 12/21/21 8:59:00 [...] Refills, Maintenance, 10/21/22 12:33:00 EST, ER Tablet, [facility], increase [...] 08/02/22 15:37:00 EDT, [facility] to [facility]acy Electron[facility], [facility] [...] (SEVERE ALLERGY), # 2 Unknown, 1 Refills, [facility], 177, cm, 06/02/21 11:35:00 EDT, Height, 108, kg, 05/24/21 19:44:00 EDT, Dry Weight Start Date: 09/08/21 Status: Ordered gabapentin 300 mg oral capsule See Instructions, TAKE 3 CAPSULES BY MOUTH IN THE MORNING, 3 CAPSULES EARLY PM AND 4 CAPSULES AT BEDTIME., # 900 capsule, Refills 3, Maintenance, 12/23/22 13:41:00 EST, Instructions Replace Required Details, [facility], [facility] Start Date: 12/23/22 Status: Ordered gloves, large gloves, large, See Instructions, # 50 each, Refills 11, Tot. Refills 11, Maintenance, use when handling soiled linen Dx: N39.4, 03/20/20 17:02:00 EDT, Supply Start Date: 03/20/20 Status: Ordered losartan 100 mg oral tablet 1 tablet = 100 mg, By Mouth, Daily, # 90 tablet, 4 Refills, Maintenance, 03/31/22 15:03:00 EDT, Tablet, [facility]., increase in dose, 177, cm, 12/21/21 8:59:00 EST, Height, 114.4, kg,02/14/22 21:57:00 EDT, Dry Weight Start Date: 03/31/22 Stop Date: 06/24/23 Status: Ordered Mapap Arthritis Pain 650 mg oral tablet, extended release 2 tablet, By Mouth, Every 8 hours, PRN NEEDED FOR PAIN, # 90 tablet, 11 Refills, Maintenance, 08/12/22 10:25:00 EDT, [facility], 177, cm, 12/21/21 8:59:00 EST, Height, [...] 56 tablet, 0 Refills, Maintenance,12/20/22 17:31:00 EST, [facility]., resent, 167, cm, 12/05/22 10:53:00 EST, [...] Gm, 5 Refills, Maintenance, 12/15/22 14:09:00 EST, [facility] 167, cm, 12/05/22 10:53:00 EST, [...] Care Nurse Name: Tri Sebastian RN Position: [facility] RN Member Role: Primary Care Nurse Name: Demario Nassar MD Position: [facility] Primary Care Physician Member Role: PCP Address: Address: [address] [place] [address] Adult [place] [address]- Care Team Related Persons Name: EPIFANIO STYLES Address: [address] [address] Name: DEUCE SEE
--- OUTSIDE RECORDS SUMMARY | 2023-12-11 08:24 | XMS_ITS | Continuity of Care Document ---
Author Name Unknown Organization [facility] Address [address] [place] [address]- Care Team Providers Care Net Ui Developer Name Role Phone Cesario SCHULER, Demario Primary Care Physician Encounter [facility] Date(s): 02/17/22 - 03/19/22 [facility] [address] [place], [place] [address] Allergies, Adverse Reactions, Alerts Substance [...] (oldterm) 12 10/08/07 Give n 1Result Comment: [id number] given w/out incident 2Result Comment: [facility]: [id number] 3Result Comment: [id number] given w/out incident 4Result Comment: [08/17/2018] [facility] [id number] 5Result Comment: [08/31/2017] given w/out incident [facility]: [id number] 6Result Comment: [08/21/2014] given w/o incident...AA 7Result Comment: [07/25/2013] given w/out incident 8Admin Note: vis sheet given. 9Admin Note: historial data 10Result Comment: [id number] 11Admin Note: mass bio 12Admin Note: sanofi [...] EVERY USE., # 36 Gm, 3 Refills, [facility], 90, INHALE 2 PUFFS BY MOUTH TWO TIMES A DAY RINSE MOUTH AFTER EVERY USE., 177, cm, 10/19/21 10:00:00 EST, Height, 108, kg... Start Date: 12/21/21 Status: Ordered amitriptyline 100 mg oral tablet 1 tablet = 100 mg, By Mouth, Daily at bedtime, # 90 tablet, 3 Refills, Maintenance, 06/02/21 11:36:00 EDT, [facility]t, [facility] 177, cm, 06/02/21 11:35:00 EDT, Height, 108, kg, 05/24/21 19:44:00 EDT, Dry Weight Start Date: 06/02/21 Stop Date: 05/28/22 Status: Ordered amLODIPine 10 mg oral tablet 10 mg, 1, tablet, By Mouth, Daily, # 90 tablet, Refills 1, Tot. Refills 1, Maintenance, 05/28/22 11:36:00 EDT, Route to Pharmacy Electronically, [facility], 177, cm, 10/19/21 10:00:00EST, Height, 108, kg, [...] Refills, Maintenance, 09/16/21 9:24:00 EST, ER Tablet, [facility], increase in dose, 177, cm, 06/02/21 11:35:00 EDT, Height, 108, kg, 05/24/21 19:44:00 EDT, Dry Weight Start Date: 09/16/21 Stop Date: 09/11/22 Status: Ordered busPIRone 10 mg oral tablet 15 mg, 1.5, tablet, By Mouth, 2 times a day, # 270 tablet, Refills 3, Tot. Refills 3, Maintenance, 09/16/21 9:24:00 EST, Route to Pharmacy Electronically, [facility], 177, cm, 06/02/21 11:35:00 EDT, Height, 108, kg, 05/24/21 19:44:00 E... Start Date: 09/16/21 Stop Date: 09/11/22 Status: Ordered cetirizine 10 mg oral tablet 1 tablet, By Mouth, Daily, PRN NEEDED FOR ALLERGY SYMPTOMS, # 30 tablet, 5 Refills, [facility], 177, cm, 09/16/21 10:06:00 EST, Height, [...] # 2 Unknown, 1 Refills, [facility], 177, cm, 06/02/21 11:35:00 EDT, Height, 108, kg, 05/24/21 19:44:00 EDT, Dry Weight Start Date: 09/08/21 Status: Ordered gabapentin 300 mg oral capsule See Instructions, TAKE 3 CAPSULES BY MOUTH IN THE MORNING, 3 CAPSULES EARLY PM AND 4 CAPSULES AT BEDTIME., # 900 capsule, Refills 3, Instructions Replace Required Details, [facility], 177, cm, 12/21/21 8:59:... Start Date: 01/11/22 [...] 02/22/22 15:14:00 EDT, Route to Pharmacy Electronically, [facility], Partial fill upon patient... Start Date: 02/22/22 Stop Date: 03/24/22 Status: Ordered losartan 50 mg oral tablet 50 mg, 1, tablet, By Mouth, Daily, # 90 tablet, Refills 3, Tot. Refills 3, Maintenance, 06/02/21 11:36:00 EDT, Route to Pharmacy Electronically, [facility], lower dose, 177, cm, 06/02/21 11:35:00 EDT, Height, 108, kg, 05/24/21 19:44:00... Start Date: 06/02/21 Stop Date: 05/28/22 Status: Ordered Mapap Arthritis Pain 650 mg oral tablet, extended release 2 tablet, By Mouth, Every 8 hours, PRN NEEDED FOR PAIN FOR, for 30 days, # 90 tablet, 9 Refills,Physician Stop 10/17/22 9:00:00 EST, 12/21/21 9:00:00 EST, [facility], 177, cm, 12/21/21 8:59:00 EST, Height, 108, [...] 56tablet, 0 Refills, Maintenance, 03/15/22 16:28:00 EDT, [facility], may dispense today. cancel previous Rx for [...] 01/11/22 15:16:00 EDT, Route to Pharmacy Electronically, [facility], Partial fill uponpatient request if the prescription is for a schedu... Start Date: 01/11/22 Stop Date: 07/10/22 Status: Ordered Ventolin HFA 108 mcg/inh inhalation aerosol with adapter 2 puffs, Inhalation, 4 times a day, PRN NEEDED FOR WHEEZING, # 18 Gm, 6 Refills, 12/28/21 11:00:00 EST, [facility]., 177, cm, 12/21/21 8:59:00 EST, Height, 108, kg, 05/24/21 19:44:00 EDT, Dry Weight Start Date: 12/28/21 Status: Ordered Zofran 4 mg oral tablet 1 tablet = 4 mg, By Mouth, Every 8 hours, PRN Nausea & Vomiting, # 12 tablet, 0 Refills, Acute 06/09/22 10:43:00 EDT, 06/09/21 10:43:00 EDT, Tablet, [facility], Partial fill upon patient request if the prescription is for a schedule II... 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
--- OUTSIDE RECORDS SUMMARY | 2023-12-11 08:24 | XMS_ITS | Continuity of Care Document ---
Author Name Unknown Organization [facility] Address [address] [place] [address]- Care Team Providers Care Profiler Hand Name Role Phone Demario Nassar MD Primary Care Physician Encounter [facility] Date(s): 06/08/21 - 07/08/21 [facility] [address] [place], [place] [address] Allergies, Adverse Reactions, Alerts Substance [...] (oldterm) 11 10/08/07 Give n 1Result Comment: [facility]: [id number] 2Result Comment: [id number] given w/out incident 3Result Comment: [08/17/2018] [facility] [id number] 4Result Comment: [08/31/2017] given w/out incident [facility] [place]: [id number] 5Result Comment: [08/21/2014] given w/o incident...AA 6Result Comment: [07/25/2013] given w/out incident 7Admin Note: vis sheet given. 8Admin Note: historial data 9Result Comment: [id number] 10Admin Note: mass bio 11Admin Note: sanofi [...] each, 3 Refills,Maintenance, 05/28/21 18:23:00 EDT, Aerosol, [facility]/pharmacy #[id number], replaces Rx for symbicort not covered by her insurance, 2 puffs Inhalation 2 times a... Start Date: 05/28/21 Stop Date: 05/23/22 Status: Ordered albuterol 0.083% inhalation solution 3 mL = 2.5 mg, Inhalation, Every 6 hours, PRN for wheezing, Dx: COPD J44.9, # 60 each, 2 Refills, Maintenance, 06/02/21 11:29:00 EDT, [facility] upon patient request if the prescription is for a schedule II opio... Start Date: 06/02/21 Status: Ordered amitriptyline 100 mg oral tablet 1.5 tablet = 150 mg, By Mouth, Daily at bedtime, # 135 tablet, 3 Refills, Maintenance, 06/02/21 11:36:00 EDT, Tablet, [facility], 177, cm, 06/02/21 11:35:00 EDT, Height, 108, kg, 05/24/21 19:44:00 EDT, Dry Weight Start Date: 06/02/21 Stop Date: 05/28/22 Status: Ordered amLODIPine 10 mg oral tablet 10 mg, 1, tablet, By Mouth, Daily, # 90 tablet, Refills 3, Tot. Refills 3, Maintenance, 06/02/21 11:36:00 EDT, Route to Pharmacy Electronically, [facility], 177, cm, 06/02/21 11:35:00EDT, Height, 108, kg, 05/24/21 19:44:00 EDT, Dry We... Start Date: 06/02/21 Stop Date: 05/28/22 Status: Ordered atorvastatin 20 mg oral tablet 1 tablet = 20 mg, By Mouth, Daily, # 90 tablet, 3 Refills, Maintenance, 05/11/20 9:45:00 EDT, Tablet, [facility], 167, cm, 01/14/20 9:59:00 EDT, [...] Refills, Maintenance, 09/29/20 14:40:00 EST, ER Tablet, [facility], increase in dose, 167, cm, 01/14/20 9:59:00 EDT, Height Start Date: 09/29/20 Stop Date: 09/24/21 Status: Ordered busPIRone 10 mg oral tablet 10 mg, 1, tablet, By Mouth, 2 times a day, # 180 tablet, Refills 3, Tot. Refills 3, Maintenance, 07/07/20 12:31:00 EDT, Route to Pharmacy Electronically, [facility], 167, cm, 209:59:00 EDT, Height Start Date: 07/07/20 Stop Date: 07/02/21 Status: Ordered cetirizine 10 mg oral tablet 1 tablet = 10 mg, By Mouth, Daily, PRN for allergy symptoms, # 30 tablet, 2 Refills, Maintenance, 06/01/21 14:45:00 EDT, Tablet, [facility], 177, cm, 05/26/21 12:02:00 EDT, [...] kit, 1 Refills, Soft Stop,04/16/20 10:16:00 EDT, [facility], 167, cm, 01/14/20 9:59:00 EDT, Height Start Date: 04/16/20 Status: Ordered FLUoxetine 20 mg oral capsule 3, capsule, By Mouth, Daily, # 270 capsule, Refills 0, Tot. Refills 0, Maintenance, 06/01/21 17:20:00 EDT, Route to Pharmacy Electronically, [facility], 177, cm, 05/26/21 12:02:00 EDT, [...] 06/02/21 11:36:00 EDT, Route to Pharmacy Electronically, [facility], lower dose, 177, cm, 06/02/21 11:35:00 EDT, Height, 108, kg, 05/24/21 19:44:00... Start Date: 06/02/21 Stop Date: 05/28/22 Status: Ordered Mapap Arthritis Pain 650 mg oral tablet, extended release See Instructions, TAKE 2 TABLETS BY MOUTH EVERY 8 HOURS NEEDED FOR PAIN FOR 30 DAYS, # 90 tablet, 5 Refills, Acute[facility], [facility], 01/14/20 9:59:00 EDT, Height [...] 56tablet, 0 Refills, Maintenance, 07/08/21 8:40:00 EDT, [facility], 177, cm, 06/02/2111:35:00 EDT, Height, [...] 12/19/21 11:01:00 EST, 06/22/21 11:01:00 EDT, Aerosol, [facility]., replaces proair, 177, cm, 06/02/21 11:35:00 EDT, Height, 108, kg, 04/30... Start Date: 06/22/21 Stop Date: 12/19/21 Status: Ordered Zofran 4 mg oral tablet 1 tablet = 4 mg, By Mouth, Every 8 hours, PRN Nausea & Vomiting, # 12 tablet, 0 Refills, Acute 06/09/22 10:43:00 EDT, 06/09/21 10:43:00 EDT, Tablet, [facility]., Partial fill upon patient request if the prescription is for a schedule II... Start Date: 06/09/21 Stop Date: 06/09/22 Status: Ordered zolpidem 10 mg oral tablet 1 tablet, By Mouth, Daily at bedtime, PRN NEEDED FOR INSOMNIA, # 28 tablet, 0 Refills, Acute 08/05/21 13:21:00 EDT, 07/08/21 13:21:00 EDT, [facility]., 177, cm, 06/02/21 11:35:00 EDT, Height, [...]
--- OUTSIDE RECORDS SUMMARY | 2023-12-11 08:24 | XMS_ITS | Continuity of Care Document ---
Author Name Unknown Organization [facility] Address [address] [place] [address]- Care Team Providers Care Die Attacher Name Role Phone Demario Nassar MD Primary Care Physician Encounter [facility] Date(s): 09/29/20 - 10/29/20 [facility] [address] [place], [place] [address] Allergies, Adverse Reactions, Alerts Substance Reaction Severity Status morphine C/O: itching Active Bee Stings swelling, loss of consciousness Active fentaNYL C/O: itching Active Immunizations Given and Recorded Vaccine Date Status Refusal Reason influenza virus vaccine, inactivated 1 09/01/20 Gi cyn influenza virus vaccine, inactivated 2 07/23/19 Gi cyn influenza virus vaccine, inactivated 3 08/17/18 Gi ycn influenza virus vaccine, inactivated 4 08/31/17 Gi [...] (oldterm) 11 10/08/07 Give n 1Result Comment: [facility]: [id number] 2Result Comment: [id number] given w/out incident 3Result Comment: [08/17/2018] [facility] [id number] 4Result Comment: [08/31/2017] given w/out incident [facility]: [id number] 5Result Comment: [08/21/2014] given w/o incident...AA 6Result Comment: [07/25/2013] given w/out incident 7Admin Note: vis sheet given. 8Admin Note: historial data 9Result Comment: [id number] 10Admin Note: mass bio 11Admin Note: sanofi [...] 3 Refills,Maintenance, 04/16/20 10:16:00 EDT, Aerosol, [facility], replaces Rx for symbicort not covered by her insurance, 2 puffs Inhalation 2... Start Date: 04/16/20 Stop Date: 04/11/21 Status: Ordered amitriptyline 100 mg oral tablet 1.5 tablet = 150 mg, By Mouth, Daily at bedtime, # 135 tablet, 3 Refills, Maintenance, 04/16/20 10:16:00 EDT, Tablet, [facility]., 167, cm, 01/14/20 9:59:00 EDT, Height Start Date: 04/16/20 Stop Date: 04/11/21 Status: Ordered amLODIPine 10 mg oral tablet 10 mg, 1, tablet, By Mouth, Daily, # 90 tablet, Refills 3, Tot. Refills 3, Maintenance, 04/16/20 10:16:00 EDT, Route to Pharmacy Electronically, [facility], 167, cm, 01/14/20 9:59:00 EDT, Height [...] 3 Refills, Maintenance, 05/11/20 9:45:00 EDT, Tablet, [facility], 167, cm, 01/14/20 9:59:00 EDT, Height Start Date: 05/11/20 Stop Date: 05/06/21 Status: Ordered buPROPion 300 mg/24 hours (XL) oral tablet, extended release 1 tablet = 300 mg, By Mouth, Daily, # 90 tablet, 3 Refills, Maintenance, 09/29/20 14:40:00 EST, ER Tablet, [facility], increase in dose, 167, cm, 01/14/20 9:59:00 EDT, Height Start Date: 09/29/20 Stop Date: 09/24/21 Status: Ordered busPIRone 10 mg oral tablet 10 mg, 1, tablet, By Mouth, 2 times a day, # 180 tablet, Refills 3, Tot. Refills 3, Maintenance, 07/07/20 12:31:00 EDT, Route to Pharmacy Electronically, [facility], 167, cm, 209:59:00 EDT, Height Start Date: 07/07/20 Stop Date: 07/02/21 Status: Ordered cetirizine 10 mg oral tablet 1 tablet = 10 mg, By Mouth, Daily, PRN for allergy symptoms, # 30 tablet, 8 Refills, Maintenance, 09/01/20 17:26:00 EST, Tablet, [facility], 167, cm, 01/14/20 9:59:00 EDT, Height Start Date: 09/01/20 Stop Date: 05/29/21 Status: Ordered chlorthalidone 25 mg oral tablet 25 mg, 1, tablet, By Mouth, Daily, # 90 tablet, Refills 3, Tot. Refills 3, Maintenance, 04/16/20 10:15:00 EDT, Route to Pharmacy Electronically, [facility], replaces hydrochlorothiazide, 167, cm, 01/14/20 9:59:00 [...] kit, 1 Refills, Soft Stop,04/16/20 10:16:00 EDT, [facility], 167, cm, 01/14/20 9:59:00 EDT, Height Start Date: 04/16/20 Status: Ordered FLUoxetine 20 mg oral capsule 3, capsule, By Mouth, Daily, # 270 capsule, Refills 3, Tot. Refills 0, Maintenance, 02/21/20 15:09:00 EDT, Route to Pharmacy Electronically, [facility], 167, cm, 01/14/20 9:59:00 [...] 01/14/20 10:17:00 EDT, [facility], [facility], cm, 01/14/20 9:59:00 EDT, Height Start Date: 01/14/20 Stop Date: 01/08/21 Status: Ordered Meclizine By Mouth, 3 times a day, 0 Refills, Maintenance, 12/14/18 15:25:26 EST Start Date: 12/14/18 Status: Ordered nystatin topical 435229 u/gm powder See Instructions, APPLY TOPICALLY TO AFFECTED AREA TWO TIMES A DAY FOR 14 DAYS, # 30 Gm, 0 Refills,[facility]ute[facility], APPLY TOPICALLY TO AFFECTED AREA TWO [...] 17:05:00 EST, 10/27/20 17:05:00 EST, ER Tablet, [facility]... 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
--- OUTSIDE RECORDS SUMMARY | 2023-12-11 08:24 | XMS_ITS | Continuity of Care Document ---
Author Name Unknown Organization [facility] Address [address] [place] [address]- Care Team Providers Care Lens Examiner Name Role Phone Demario Nassar MD [id number] 12[facility] [address] [place], [place] [address] Encounter Diagnosis COPD - Chronic obstructive pulmonary disease(Discharge Diagnosis) - 11/30/23 Severe obesity (BMI 35.0-39.9) with comorbidity(Discharge Diagnosis) - 11/30/23 Open wound of right knee(Discharge Diagnosis) - 11/30/23 Attending Physician: Demario Nassar MD Allergies, Adverse [...] (oldterm) 15 10/08/07 Give n 1Result Comment: [id number] given w/out incident 2Early/Late Reason: Early/Late Reason: Other : not documented 3Result Comment: [id number] given w/out incident 4Result Comment: [id number] given w/out incident 5Result Comment: [facility]: [id number] 6Result Comment: [id number] given w/out incident 7Result Comment: [08/17/2018] [facility] [id number] 8Result Comment: [08/31/2017] given w/out incident [facility]: [id number] 9Result Comment: [08/21/2014] given w/o incident...AA 10Result Comment: [07/25/2013] given w/out incident 11Admin Note: vis sheet given. 12Admin Note: historial data 13Result Comment: [id number] 14Admin Note: mass bio 15Admin Note: sanofi [...] tablet, 5 Refills, Maintenance, 07/28/23 13:25:00 [facility], [facility], 05/29/23 18:21:00 EDT, Height, 114.4, kg, 02/14/22 21:57:00 EDT, Dry Weight Start Date: 07/28/23 Status: Ordered Advair HFA 115 mcg / 21 mcg 2 puffs, Inhalation, 2 times a day, AFTER EVERY USE., # 36 Gm, 1 Refills, Maintenance, 07/28/23 13:25:00 EDT, [facility], 90, INHALE 2 PUFFS BY MOUTH TWO TIMES A DAY RINSE MOUTH AFTER EVERYUSE., 167, cm, 05/29/23 18:21:00 EDT, Height, 114.4... Start Date: 07/28/23 Status: Ordered All Day Allergy 10 mg oral tablet 1 tablet, By Mouth, Daily, PRN NEEDED FOR ALLERGY SYMPTOMS, # 30 tablet, 5 Refills, Maintenance,06/20/23 7:39:00 EDT, [facility], 167, cm, 05/29/23 18:21:00 EDT, Height, 114.4, kg, 02/14/22 21:57:00 EDT, Dry Weight Start Date: 06/20/23 Status: Ordered amLODIPine 10 mg oral tablet 10 mg, 1, tablet, By Mouth, Daily, # 90 tablet, Refills 3, Tot. Refills 3, Maintenance, 11/25/22 15:31:00 EST, [facility] 177, cm, 12/21/21 8:59:00 EST, Height, 114.4, kg, 02/14/22 21:57:00 EDT, Dry W... Start Date: 11/25/22 Stop Date: 11/20/23 Status: Ordered atorvastatin 40 mg oral tablet See Instructions, TAKE 1 TABLET BY MOUTH EVERY DAY, # 90 tablet, 1 Refills, Maintenance, 11/30/23 7:19:00 EST, [facility], 167, cm, 05/29/23 18:21:00 EDT, Height, 114.4, [...] Unknown, 1 Refills, Maintenance, 05/12/23 12:41:00 EDT, [facility], 167, cm, 12/05/22 10:53:00 EST, Height, [...] 3 Refills, Maintenance, 11/30/23 9:52:00 EST, Capsule, [facility], replaces chlorthalidone, 1 capsule By Mouth Daily,x90 [...] Refills, Maintenance, 05/29/23 18:09:00 EDT, Tablet, [facility]., increase in dose, 167, cm, 05/29/23 [...] 56 tablet, 0 Refills, Maintenance,11/30/23 7:20:00 EST, [facility], 167, cm, 05/29/23 18:21:00 EDT, Height, [...] Gm, 5 Refills, Maintenance, 11/22/23 9:48:00 EST, [facility], 167, cm, 05/29/23 18:21:00 EDT, Height, [...] Confirmed Active FH: 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 (mom) Confirmed Active [facility] current use of opiate analgesic Confirmed Active [...] controlled Confirmed Active Urine incontinence Confirmed Active Diagnosis Diagnosis Type Effective Dates Health Status Clinical Service Informant COPD - Chronic obstructive pulmonary disease Discharge Diagnosis 11/30/23 Severe obesity (BMI 35.0-39.9) with comorbidity Discharge Diagnosis 11/30/23 Open wound of right knee Discharge Diagnosis 11/30/23 Vital Signs Most recent to oldest [Reference Range]: 1 2 Height 167 cm (11/30/23 9:45 AM) Weight 111.3 kg (11/30/23 9:45 AM) Oxygen Saturation [94-100 %] 94 % (11/30/23 9:45 AM) Pulse Rate [55-90 bpm] 64 bpm (11/30/23 9:45 AM) Body Mass Index [18.5-24.99 kg/m2] 39.91 kg/m2 *>HHI* (11/30/23 9:45 AM) Blood Pressure [90-138/55-84 mm Hg] 122/ 78mm Hg (11/30/23 9:50 AM) 138/84mm Hg (11/30/23 9:45 AM) Mode of Delivery (Oxygen) Room air (11/30/23 9:45 AM) Blood pressure sites Arm, left (11/30/23 9:50 AM) Arm, left (11/30/23 9:45 AM) Social History Social History Type Response Smoking Status 5-9 cigarettes (betw een 1/4 to 1/2 pack)/day in last 30 days; Type: Cigarettes entered on: 02/14/22 Sex Note * Divya Murillo: PERFORM, SIGN, VERIFY Event Display: Patient Education/Instruction Authored Date: [id number] [facility] *[facility] Clinical Summary Name EMIGDIO GARCIA Age 53 Years 1970 PCP Cesario SCHULER, Demario PCP Visit Date 11/30/2023 09:33:00 Patient Instructions 1. ??flu shot today 2. ??call your pharmacist to schedule your Shingrix shots 3. ??replace chlorthalidone with Dyazide once daily to see if this controls your BP without lowering your potassium too much 4. ??keep well hydrated. 5. ??please take your atorvastatin daily.?? 6. recheck fasting lab work in 6 weeks. Additional Instructions: Scheduled Appointments?? Future Appointments ?No Future Appointments Scheduled Follow-Up Instructions ?? Diagnosis [facility] (current) use of opiate analgesic; Other low back pain; Bilateral primary osteoarthritis of knee; Spondylosis without myelopathy or radiculopathy, lumbar region Medications: Please continue your medications until treatment is completed or stopped by your provider. Discuss any questions related to medications with your provider. New Medications [facility], [address] [place] [phone], [phone] Hydrochlorothiazide/Triamterene (hydrochlorothiazide-triamterene 25 mg-37.5 mg oral capsule) 1 capsule Oral Daily for 90 Days. Refills: 3. Next Dose: Medications to Continue Taking That Have Changed These medications were not printed or sent to your pharmacy - Atorvastatin (atorvastatin 40 mg oral tablet) TAKE 1 TABLET BY MOUTH EVERY DAY. Refills: 1. Next Dose: Medications to Continue with No Changes These medications were not printed or sent to your pharmacy Acetaminophen (acetaminophen 650 mg oral tablet, extended release) 2 tab(s) Oral every 8 hours as needed NEEDED FOR PAIN. Refills: 5. Next Dose: Albuterol (Ventolin HFA 108 mcg/inh inhalation aerosol with adapter) 2 puff(s) Inhalation 4 times aday as needed NEEDED FOR WHEEZING. Refills: 5. Next Dose: Amlodipine (amLODIPine 10 mg oral tablet) 1 tab(s) Oral Daily for 90 Days. Refills: 3. Next Dose: BuPROpion (buPROPion 200 mg/12 hours (SR) oral tablet, extended release) 1 tab(s) Oral Daily for 30Days. Next Dose: BusPIRone (busPIRone 15 mg oral tablet) 1 tab(s) Oral Daily at Bedtime for 30 Days. Next Dose: BusPIRone (busPIRone 7.5 mg oral tablet) 2 tab(s) Oral twice a day for 30 Days. Next Dose: Cetirizine (All Day Allergy 10 mg oral tablet) 1 tab(s) Oral Daily as needed NEEDED FOR ALLERGY SYMPTOMS. Refills: 5. Next Dose: Durable Medical Equipment (4 wheel walker with seat) use for mobility. 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 lifetime use Ht: 5'8 Wt: 247lbs. Refills: 0. Next Dose: Durable Medical Equipment (Bladder pads 120/case) use 1 to 2 pads daily as needed for urinary incontinence R32. Refills: 3. Next Dose: Durable Medical Equipment (CPAP Supplies - Tubing, Filter, Mask, Water Chamber, Head Gear) use daily at bedtime for Obstructive Sleep Apnea. Refills: 11. Next Dose: Durable Medical Equipment (gloves, large) use when handling soiled linen Dx: N39.4. Refills: 11. Next Dose: Durable Medical Equipment (incontinence pads, large) use and replace QID as needed for urine incontinence. Dx: 39.81. Refills: 11. Next Dose: Durable Medical Equipment (nebulizer) use as directed for shortness of breath Dx: COPD. Refills: 0. Next Dose: EPINEPHrine (EPINEPHrine 0.3 mg injectable solution) INJECT 0.3 MG INTRAMUSCULAR ONCE NEEDED FORANAPHYLAXIS (SEVERE ALLERGY). Refills: 1. Next Dose: Fluticasone-Salmeterol (Advair HFA 115 mcg / 21 mcg) 2 puff(s) Inhalation twice a day. AFTER EVERY USE.. Refills: 1. Next Dose: Gabapentin (gabapentin 300 mg oral capsule) TAKE 3 CAPSULES BY MOUTH IN THE MORNING, 3 CAPSULES EARLY PM AND 4 CAPSULES AT BEDTIME.. Refills: 3. Next Dose: Losartan (losartan 100 mg oral tablet) 1 tab(s) Oral Daily for 90 Days. Refills: 4. Next Dose: Miscellaneous Rx (8 HOUR ARTHRITIS PAIN RELIE 650 Tablet) TAKE 2 TABLETS BY MOUTH EVERY 8 HOURS NEEDED FOR PAIN FOR 30 DAYS. Refills: 5. Next Dose: Oxycodone (OxyCONTIN 15 mg oral tablet, extended release) 1 tab(s) Oral every 12 hours as needed Pain , Severe for 28 Days. Refills: 0. Next Dose: Pantoprazole (pantoprazole 40 mg oral delayed release tablet) 1 tab(s) Oral Daily. Refills: 1. Next Dose: Quetiapine (QUEtiapine 25 mg oral tablet) 2 tab(s) Oral Daily at Bedtime for 30 Days. Next Dose: Allergy Info:?? fentaNYL; Bee Stings; morphine Medications Given This Visit Future Orders ?ALT? Order Date:11/30/23?- Complete on or after?11/30/23 ?Lipid Panel? Order Date:11/30/23?- Complete on or after?11/30/23 ?Potassium Level? Order Date:11/30/23?- Complete on or after?11/30/23 ?Magnesium Level? Order Date:11/30/23?- Complete on or after?11/30/23 Vital Signs Height 167 cm Weight 111.3 kg BMI 39.91 kg/m2 Blood Pressure 122 mm Hg/78 mm Hg Temperature Pulse Rate 64 bpm Respiratory Rate 02 Sat Mode of Delivery 94 %/Room air You can now view a summary of your hospital visit from the comfort of your home through a free online portal called [employer]s. [employer]Calls is a website that allows you to securely view your medical information including discharge summary, medications and follow-up visits. ??You can alsosend a secure electronic message to your doctor???s office to request appointments, renew medications or just ask a question. You can enroll at [email or web address] or register during your next office visit. Disclaimer:?? The information provided is of a general nature and is intended to be used in conjunction with the recommendations and advice of your health care practitioner. ??Every effort has been made to ensure that the information provided is accurate and complete at the time it is provided to you however, as your needs change, or, as new ??information becomes available, different or additional instructions may be required. If you have questions, please consult with your primary care provider or pharmacist, as appropriate. ??This information is not intended to serve as substitution for assessment and evaluation by a qualified health care provider. If you do not have a primary care provider, you may find a [facility] provider by calling [facility] Link at [phone]. [facility], in keeping with [facility] guidance, no longer requires face masks for staff, patientsor visitors in most situations. Similar to time spent indoors at other locations, there is the chance that you were exposed to respiratory viruses during your time with us (such as flu or COVID-19).? If you develop symptoms concerning for a viral respiratory infection, please seek testing (and treatment if indicated) from your medical provider or home test kit. For information about the plan of care including goals and instructions for your diagnosis, please see the patient education orders section of this document. Patient Education Materials?? The content of this educational material or handout may have been modified, supplemented, or adapted from its original content and format to support your individualized medical care. How to Quit Smoking Smoking is one of the hardest habits to break. About half of all??people who have ever smoked have been able to quit. Most people??who still smoke want to quit. Here are some of the best ways to stopsmoking. Keep trying It takes most smokers about eight tries before they can quit entirely. It???s important not to giveup. Go cold turkey Most??former smokers quit cold turkey (all at once). Trying to cut back gradually doesn't seem to work as well, perhaps because it continues the smoking habit. Also, it is possible to inhale more while smoking fewer cigarettes. This results in the same amount of nicotine in your body! Get support Support programs can be a big help, especially for heavy smokers. These groups offer lectures, waysto change behavior, and peer support. Here are some ways to find a support program: ??? Free national quitline: 623-WPPK-WNV (581-694-5452). ??? Hospital quit-smoking programs. ??? [place] [employer]: (273.534.2620). ??? [place] (145-287-9814). Support at home is important too. Nonsmokers can offer praise and encouragement. If the smoker in your life finds it hard to quit, encourage them to keep trying! Truu-jeg-ajelwcv medicines Nicotine replacement therapy??may make quitting??easier. Certain aids, such as the nicotine patch, gum, and lozenges, are available without a prescription. It??is best to use these under a doctor???scare, though. The skin patch provides a steady supply of nicotine. Nicotine gum and lozenges give??temporary bursts of low levels of nicotine. Both methods reduce the craving for cigarettes. Warning: If you??have nausea, vomiting, dizziness, weakness, or a fast heartbeat, stop using these products and see your doctor. Prescription medicines After reviewing??your smoking patterns and prior attempts to quit, your doctor may offer a prescription medicine such as bupropion, varenicline, a nicotine inhaler, or nasal spray. Each has advantages and side effects. Your doctor can review these with you. Health benefits of quitting The benefits of quitting start right away and keep improving the longer you go without smoking.??These benefits occur at any age. ??So whether you are 17 or 70, quitting is a good decision. Some of the benefits include: ??? 20 minutes: Blood pressure and pulse return to normal. ??? 8 hours: Oxygen levels return to normal. ??? 2 days: Ability to smell and taste begin to improve as damaged nerves regrow. ??? 2 to 3 weeks: Circulation and lung function improve. ??? 1 to 9 months: Coughing, congestion, and shortness of breath decrease; tiredness decreases. ??? 1 year: Risk of heart attack decreases by half. ??? 5 years: Risk of lung cancer decreases by half; risk of stroke becomes the same as a nonsmoker???s. For more on how to quit smoking, try these online resources: ??? Smokefree.gov??http://smokefree.gov/ ??? Clearing the Air?booklet from the National Cancer Coolin??http://Independent Stock Marketfree.gov/sites/defnayely trivedi/files/pdf/huqyqpyj-inj-ssa-accessible.pdf ?? 9883-4636 [employer]. [address] [place] [address], [place] [address]. All rights reserved. This information is not intended as a substitute for professional medical care. Always follow your healthcare professional's instructions. Additional Provider Instructions: 1. flu shot today 2. call your pharmacist to schedule your Shingrix shots 3. replace chlorthalidone with dyazide once daily to see if this controls your BP without lowering your potassium too much 4. keep well hydrated. 5. please take your atorvastatin daily. 6. recheck fasting lab work in 6 weeks. Patient Care team information Care Team Personnel Name: Ermelinda Rice RN Position: [facility] RN Member Role: Primary Care Nurse Name: Tri Sebastian RN Position: [facility] RN Member Role: Primary Care Nurse Name: Demario Nassar MD Position: [facility] Physician - Primary Care Member Role: PCP Address: Address: [address] [place] [address] Adult [place] [address]- Care Team Related Persons Name: EPIFANIO STYLES Address: [address] [address] Name: DEUCE SEE
--- OUTSIDE RECORDS SUMMARY | 2023-12-11 08:24 | XMS_ITS | Continuity of Care Document ---
Author Name Unknown Organization [facility] Address [address] [place] [address]- Care Team Providers Care Immigration Associate Name Role Phone Demario Nassar MD Primary Care Physician [facility] Date[facility]): 10/20/20 - 11/19/20 [facility] [address] [place], [place] [address] Allergies, Adverse Reactions, Alerts [...] 10/08/07 Give n 1Result Comment: [facility]: [id number] 2Result Comment: [id number] given w/out incident 3Result Comment: [08/17/2018] [facility] [id number] 4Result Comment: [08/31/2017] given w/out incident [facility]: [id number] 5Result Comment: [08/21/2014] given w/o incident...AA 6Result Comment: [07/25/2013] given w/out incident 7Admin Note: vis sheet given. 8Admin Note: historial data 9Result Comment: [id number] 10Admin Note: mass bio 11Admin Note: sanofi [...] each, 3 Refills,Maintenance, 04/16/20 10:16:00 EDT, Aerosol, [facility], replaces Rx for symbicort not covered by her insurance, 2 puffs Inhalation 2... Start Date: 04/16/20 Stop Date: 04/11/21 Status: Ordered amitriptyline 100 mg oral tablet 1.5 tablet = 150 mg, By Mouth, Daily at bedtime, # 135 tablet, 3 Refills, Maintenance, 04/16/20 10:16:00 EDT, Tablet, [facility]., 167, cm, 01/14/20 9:59:00 EDT, Height Start Date: 04/16/20 Stop Date: 04/11/21 Status: Ordered amLODIPine 10 mg oral tablet 10 mg, 1, tablet, By Mouth, Daily, # 90 tablet, Refills 3, Tot. Refills 3, Maintenance, 04/16/20 10:16:00 EDT, Route to Pharmacy Electronically, [facility], 167, cm, 01/14/20 9:59:00 EDT, [...] 3 Refills, Maintenance, 05/11/20 9:45:00 EDT, Tablet, [facility], 167, cm, 01/14/20 9:59:00 EDT, Height Start Date: 05/11/20 Stop Date: 05/06/21 Status: Ordered buPROPion 300 mg/24 hours (XL) oral tablet, extended release 1 tablet = 300 mg, By Mouth, Daily, # 90 tablet, 3 Refills, Maintenance, 09/29/20 14:40:00 EST, ER Tablet, [facility], increase in dose, 167, cm, 01/14/20 9:59:00 EDT, Height Start Date: 09/29/20 Stop Date: 09/24/21 Status: Ordered busPIRone 10 mg oral tablet 10 mg, 1, tablet, By Mouth, 2 times a day, # 180 tablet, Refills 3, Tot. Refills 3, Maintenance, 07/07/20 12:31:00 EDT, Route to Pharmacy Electronically, [facility], 167, cm, 209:59:00 EDT, Height Start Date: 07/07/20 Stop Date: 07/02/21 Status: Ordered cetirizine 10 mg oral tablet 1 tablet = 10 mg, By Mouth, Daily, PRN for allergy symptoms, # 30 tablet, 8 Refills, Maintenance, 09/01/20 17:26:00 EST, Tablet, [facility], 167, cm, 01/14/20 9:59:00 EDT, Height Start Date: 09/01/20 Stop Date: 05/29/21 Status: Ordered chlorthalidone 25 mg oral tablet 25 mg, 1, tablet, By Mouth, Daily, # 90 tablet, Refills 3, Tot. Refills 3, Maintenance, 04/16/20 10:15:00 EDT, Route to Pharmacy Electronically, [facility], replaces hydrochlorothiazide, 167, cm, 01/14/20 [...] kit, 1 Refills, Soft Stop,04/16/20 10:16:00 EDT, [facility], 167, cm, 01/14/20 9:59:00 EDT, Height Start Date: 04/16/20 Status: Ordered FLUoxetine 20 mg oral capsule 3, capsule, By Mouth, Daily, # 270 capsule, Refills 3, Tot. Refills 0, Maintenance, 02/21/20 15:09:00 EDT, Route to Pharmacy Electronically, [facility], 167, cm, 01/14/20 9:59:00 EDT, [...] 01/14/20 10:17:00 EDT, [facility] dose, 167, cm, 01/14/20 9:59:00 EDT, Height Start Date: 01/14/20 Stop Date: 01/08/21 Status: Ordered Meclizine By Mouth, 3 times a day, 0 Refills, Maintenance, 12/14/18 15:25:26 EST Start Date: 12/14/18 Status: Ordered nystatin topical 446415 u/gm powder See Instructions, APPLY TOPICALLY TO AFFECTED AREA TWO TIMES A DAY FOR 14 DAYS, # 30 Gm, 0 Ref[facility], APPLY TOPICALLY TO AFFECTED AREA [...] 17:05:00 EST, 10/27/20 17:05:00 EST, ER Tablet, [facility]... Start Date: 10/27/20 Stop Date: [...] Refills, Soft Stop, 04/06/21 11:36:00 EDT, [facility] replaces proair, 167, cm, 01/14/20 9:59:00 EDT, Height Start Date: 04/06/21 Stop Date: 10/03/21 Status: Ordered Ventolin HFA 108 mcg/inh inhalation aerosol with adapter 2 puffs, Inhalation, 4 times a day, PRN for wheezing, for 30 days, # 1 each, 5 Refills, Hard Stop 04/06/21 11:36:00 EDT, 10/08/20 11:36:00 EST, Aerosol, [facility]., replaces proair, 167, cm, 01/14/20 9:59:00 EDT, Height Start Date: 10/08/20 Stop Date: 04/06/21 Status: Ordered zolpidem 10 mg oral tablet 1 tablet = 10 mg, By Mouth, Daily at bedtime, PRN as needed for insomnia, # 28 tablet, 0 Refills, Soft Stop, 11/12/20 8:02:00 EST, [facility]., 167, cm, 01/14/20 9:59:00 EDT, [...]
--- OUTSIDE RECORDS SUMMARY | 2023-12-11 08:24 | XMS_ITS | Continuity of Care Document ---
Author Name Unknown Organization 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 [address] [place], [place] [address] Attending Physician: Demario Nassar MD [...] Reason: Other : not documented 2Result Comment: [id number] given w/out incident 3Result Comment: [id number] given w/out incident 4Result Comment: [facility]: [id number] 5Result Comment: [id number] given w/out incident 6Result Comment: [08/17/2018] [facility] [id number] 7Result Comment: [08/31/2017] given w/out incident [facility]: [id number] 8Result Comment: [08/21/2014] given w/o incident...AA 9Result Comment: [07/25/2013] given w/out incident 10Admin Note: vis sheet given. 11Admin Note: historial data 12Result Comment: [id number] 13Admin Note: mass bio 14Admin Note: sanofi [...] Refills, Maintenance, 01/06/23 15:18:00 EST, [facility], 90, INHALE 2 PUFFS BY MOUTH TWO TIMES A DAY RINSE MOUTH AFTER EVERYUSE., 167, cm, 12/05/22 10:53:00 EST, Height, 114.4... Start Date: 01/06/23 Status: Ordered All Day Allergy 10 mg oral tablet 1 tablet, By Mouth, Daily, PRN NEEDED FOR ALLERGY SYMPTOMS, # 30 tablet, 6 Refills, Maintenance,11/08/22 15:08:00 EST, [facility], 177, cm, 12/21/21 8:59:00 EST, Height, 114.4, kg, 02/14/22 21:57:00 EDT, Dry Weight Start Date: 11/08/22 Status: Ordered amLODIPine 10 mg oral tablet 10 mg, 1, tablet, By Mouth, Daily, # 90 tablet, Refills 3, Tot. Refills 3, Maintenance, 11/25/22 15:31:00 EST, Route to Pharmacy Electronically, [facility], 177, cm, 12/21/21 8:59:00 EST, Height, 114.4, kg, 02/14/22 21:57:00 EDT, Dry W... Start Date: 11/25/22 Stop Date: 11/20/23 Status: Ordered atorvastatin 40 mg oral tablet 1 tablet, By Mouth, Daily, # 90 tablet, 1 Refills, Maintenance, 02/03/23 16:11:00 EDT, [facility], 167, cm, 12/05/22 10:53:00 EST, Height, [...] 05/29/23 18:09:00 EDT, Route to Pharmacy Electronically, [facility], replaces spironolactone, 167, cm, 05/29/23 17:54:00 [...] Unknown, 1 Refills, Maintenance, 05/12/23 12:41:00 EDT, [facility], 167, cm, 12/05/22 10:53:00 EST, Height, 114.4, kg, 02/14/22 21:57:00 EDT,... Start Date: 05/12/23 Status: Ordered gabapentin 300 mg oral capsule See Instructions, TAKE 3 CAPSULES BY MOUTH IN THE MORNING, 3 CAPSULES EARLY PM AND 4 CAPSULES AT BEDTIME., # 900 capsule, Refills 3, Maintenance, 12/23/22 13:41:00 EST, Instructions Replace Required Details, Route to Pharmacy Electronically, [facility] Start Date: 12/23/22 Status: Ordered gloves, large gloves, large, See Instructions, # 50 each, Refills 11, Tot. Refills 11, Maintenance, use when handling soiled linen Dx: N39.4, 03/20/20 17:02:00 EDT, Supply Start Date: 03/20/20 Status: Ordered losartan 100 mg oral tablet 1 tablet = 100 mg, By Mouth, Daily, # 90 tablet, 4 Refills, Maintenance, 05/29/23 18:09:00 EDT, Tablet, [facility], increase in dose, 167, cm, 05/29/23 17:54:00 EDT, Height, 114.4, kg, 02/14/22 21:57:00 EDT, Dry Weight Start Date: 05/29/23 Stop Date: 08/21/24 Status: Ordered Mapap Arthritis Pain 650 mg oral tablet, extended release 2 tablet, By Mouth, Every 8 hours, PRN NEEDED FOR PAIN, # 90 tablet, 11 Refills, Maintenance, 08/12/22 10:25:00 EDT, [facility], 177, cm, 12/21/21 8:59:00 EST, Height, [...] , Severe, # 56 tablet, 0 Refills, Maintenance,05/09/23 16:04:00 EDT, [facility], resent, 167, cm, 12/05/22 10:53:00 EST, Height, 114.4, kg, 02/14/22 21:57:00 EDT, Dry Weight Start Date: 05/09/23 Stop Date: 06/06/23 Status: Ordered Protonix 40 mg oral delayed [...] Gm, 5 Refills, Maintenance, 05/03/23 18:41:00 EDT, [facility], 167, cm, 12/05/22 10:53:00 EST, [...] Confirmed Active FH: 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 (mom) 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 Confirmed Active [...] controlled Confirmed Active Urine incontinence Confirmed Active Vital Signs Most recent to oldest [Reference Range]: 1 2 Height 167 cm (05/29/23 6:21 PM) 167 cm (05/29/23 5:54 PM) Weight 106.6 kg (05/29/23 5:54 PM) Oxygen Saturation [94-100 %] 99 % (05/29/23 5:54 PM) Pulse Rate [55-90 bpm] 77 bpm (05/29/23 5:54 PM) Body Mass Index [18.5-24.99 kg/m2] 38.22 kg/m2 *>HHI* (05/29/23 5:54 PM) Blood Pressure [90-138/55-84 mm Hg] 124/ 74mm Hg (05/29/23 6:21 PM) 125/78mm Hg (05/29/23 5:54 PM) Mode of Delivery (Oxygen) Room air (05/29/23 5:54 PM) Blood pressure sites Arm, left (05/29/23 6:21 PM) Arm, right (05/29/23 5:54 PM) Social History Social History Type Response Smoking Status 5-9 cigarettes (betw een 1/4 to 1/2 pack)/day in last 30 days; Type: Cigarettes entered on: 02/14/22 Sex Note * Amparo Crow: PERFORM, SIGN, VERIFY Event Display: Patient Education/Instruction Authored Date: [id number] [facility] *No Edge Adult Ped Clinical Summary Name EMIGDIO GARCIA Age 52 Years 1970 PCP Cesario SCHULER, [id number] Date 05/29/2023 17:46:00 Patient Instructions 1. please go to a local pharmacy to get your Shingrix shots. 2. please repeat fasting lab work 3. renewed BP meds 4. call [phone] to schedule your mammogram 5. will not make any med changes for now, however should you continue to have better control of your back pain after the injections, maybe we can cut back on gabapentin and OxyContin doses. 6. you lost 14lbs since November, hopefully you will continue to lose more. Additional Instructions: Scheduled Appointments?? Future Appointments ?No Future Appointments Scheduled Follow-Up Instructions ?? Diagnosis Medications: Please continue your medications until treatment is completed or stopped by your provider. Discuss any questions related to medications with your provider. Medications to Continue with No Changes [facility], [address] [place], [place] [id number], [phone] Chlorthalidone (chlorthalidone 25 mg oral tablet) 1 tab(s) Oral Daily for 90 Days. Refills: 3. Next Dose: Losartan (losartan 100 mg oral tablet) 1 tab(s) Oral Daily for 90 Days. Refills: 4. Next Dose: These medications were not printed or sent to your pharmacy Acetaminophen (Mapap Arthritis Pain 650 mg oral tablet, extended release) 2 tab(s) Oral every 8 hours as needed NEEDED FOR PAIN. Refills: 11. Next Dose: Albuterol (Ventolin HFA 108 mcg/inh inhalation aerosol with adapter) 2 puff(s) Inhalation 4 times aday as needed NEEDED FOR WHEEZING. Refills: 5. Next Dose: Amlodipine (amLODIPine 10 mg oral tablet) 1 tab(s) Oral Daily for 90 Days. Refills: 3. Next Dose: Atorvastatin (atorvastatin 40 mg oral tablet) 1 tab(s) Oral Daily. Refills: 1. Next Dose: BuPROpion (buPROPion 200 mg/12 hours [...] as needed NEEDED FOR ALLERGY SYMPTOMS. Refills: 6. Next Dose: Durable Medical Equipment (Bladder pads [...] CAPSULES AT BEDTIME.. Refills: 3. Next Dose: Miscellaneous Rx (8 HOUR ARTHRITIS PAIN RELIE 650 Tablet) TAKE 2 TABLETS BY MOUTH EVERY 8 HOURS NEEDED FOR PAIN FOR 30 DAYS. Refills: 5. Next Dose: Oxycodone (OxyCONTIN 15 mg oral tablet, extended release) 1 tab(s) Oral every 12 hours as needed Pain , Severe for 28 Days. Refills: 0. Next Dose: Pantoprazole (Protonix 40 mg oral delayed release tablet) 1 tab(s) Oral Daily for 90 Days. Refills:3. Next Dose: Quetiapine (QUEtiapine 25 mg oral tablet) 2 tab(s) Oral Daily at Bedtime for 30 Days. Next Dose: Allergy Info:?? fentaNYL; Bee Stings; morphine Medications Given This Visit Future Orders ?MM Digital Mammo Screening? Order Date:05/29/23?- Complete on or after?05/29/23 Vital Signs Height 167 cm Weight 106.6 kg BMI 38.22 kg/m2 Blood Pressure 124 mm Hg/74 mm Hg Temperature Pulse Rate 77 bpm Respiratory Rate 02 Sat Mode of Delivery 99 %/Room air You can now view a summary of your hospital visit from the comfort of your home through a free online portal called Rdio. Rdio is a website that allows you to securely view your medical information including discharge summary, medications and follow-up visits. ??You can alsosend a secure electronic message to your doctor???s office to request appointments, renew medications or just ask a question. You can enroll at [email or web address] or register during your next office visit. [...] primary care provider, you may find a [facility] provider by calling [facility] at [phone]. For information about the plan of care including goals and instructions for your diagnosis, please see the patient education orders section of this document. Patient Education Materials?? The content of this educational material or handout may have been modified, supplemented, or adapted from its original content and format to support your individualized medical care. Additional Provider Instructions: 1. please go to a local pharmacy to get your Shingrix shots. 2. please repeat fasting lab work 3. renewed BP meds 4. call [phone] to schedule your mammogram 5. will not make any med changes for now, however should you continue to have better control of your back pain after the injections, maybe we can cut back on gabapentin and oxycontin doses. 6. you lost 14lbs since November, hopefully you will continue to lose more. Patient Care team information Care Team Personnel Name: Ermelinda Rice RN Position: [facility] RN Member Role: Primary Care Nurse Name: Tri Sebastian RN Position: [facility] RN Member Role: Primary Care Nurse Name: Demario Nassar MD Position: [facility] Physician - Primary Care Member Role: PCP Address: Address: [address] [place] [address] Adult [place] [address]- Care Team Related Persons Name: EPIFANIO STYLES Address: home [address] [place] [address] [place] [id number] Name: DEUCE SEE
--- OUTSIDE RECORDS SUMMARY | 2023-12-11 08:24 | XMS_ITS | Continuity of Care Document ---
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: [id number] 5Result Comment: [08/21/2014] given w/o incident...AA 6Result Comment: [07/25/2013] given w/out incident 7Admin Note: vis sheet given. 8Admin Note: historial data 9Result Comment: [id number] 10Admin Note: mass bio 11Admin Note: sanofi [...] each, 3 Refills,Maintenance, 05/28/21 18:23:00 EDT, Aerosol, [facility]/pharmacy #[id number], replaces Rx for symbicort not covered by her insurance, 2 puffs Inhalation 2 times a... Start Date: 05/28/21 Stop Date: 05/23/22 Status: Ordered albuterol 0.083% inhalation solution 3 mL = 2.5 mg, Inhalation, Every 6 hours, PRN for wheezing, Dx: COPD J44.9, # 60 each, 2 Refills, Maintenance, 06/02/21 11:29:00 EDT, [facility] upon patient request if the prescription is for a schedule II opio... Start Date: 06/02/21 Status: Ordered amitriptyline 100 mg oral tablet 1.5 tablet = 150 mg, By Mouth, Daily at bedtime, # 135 tablet, 3 Refills, Maintenance, 06/02/21 11:36:00 EDT, Tablet, [facility], 177, cm, 06/02/21 11:35:00 EDT, Height, 108, kg, 05/24/21 19:44:00 EDT, Dry Weight Start Date: 06/02/21 Stop Date: 05/28/22 Status: Ordered amLODIPine 10 mg oral tablet 10 mg, 1, tablet, By Mouth, Daily, # 90 tablet, Refills 3, Tot. Refills 3, Maintenance, 06/02/21 11:36:00 EDT, Route to Pharmacy Electronically, [facility], 177, cm, 06/02/21 11:35:00EDT, Height, 108, kg, 05/24/21 19:44:00 EDT, Dry We... Start Date: 06/02/21 Stop Date: 05/28/22 Status: Ordered atorvastatin 20 mg oral tablet 1 tablet = 20 mg, By Mouth, Daily, # 90 tablet, 3 Refills, Maintenance, 05/11/20 9:45:00 EDT, Tablet, [facility], 167, cm, 01/14/20 9:59:00 EDT, Height [...] Refills, Maintenance, 09/29/20 14:40:00 EST, ER Tablet, [facility], increase in dose, 167, cm, 01/14/20 9:59:00 EDT, Height Start Date: 09/29/20 Stop Date: 09/24/21 Status: Ordered busPIRone 10 mg oral tablet 10 mg, 1, tablet, By Mouth, 2 times a day, # 180 tablet, Refills 3, Tot. Refills 3, Maintenance, 07/07/20 12:31:00 EDT, Route to Pharmacy Electronically, [facility], 167, cm, 209:59:00 EDT, Height Start Date: 07/07/20 Stop Date: 07/02/21 Status: Ordered cetirizine 10 mg oral tablet 1 tablet = 10 mg, By Mouth, Daily, PRN for allergy symptoms, # 30 tablet, 2 Refills, Maintenance, 06/01/21 14:45:00 EDT, Tablet, [facility], 177, cm, 05/26/21 12:02:00 EDT, Height, [...] kit, 1 Refills, Soft Stop,04/16/20 10:16:00 EDT, [facility], 167, cm, 01/14/20 9:59:00 EDT, Height Start Date: 04/16/20 Status: Ordered FLUoxetine 20 mg oral capsule 3, capsule, By Mouth, Daily, # 270 capsule, Refills 0, Tot. Refills 0, Maintenance, 06/01/21 17:20:00 EDT, Route to Pharmacy Electronically, [facility], 177, cm, 05/26/21 12:02:00 EDT, [...] 06/02/21 11:36:00 EDT, Route to Pharmacy Electronically, [facility], lower dose, 177, cm, 06/02/21 11:35:00 EDT, Height, 108, kg, 05/24/21 19:44:00... Start Date: 06/02/21 Stop Date: 05/28/22 Status: Ordered Mapap Arthritis Pain 650 mg oral tablet, extended release See Instructions, TAKE 2 TABLETS BY MOUTH EVERY 8 HOURS NEEDED FOR PAIN FOR 30 DAYS, # 90 tablet, 5 Refills, Acute, [facility], 167, cm, 01/14/20 9:59:00 EDT, [...] 56tablet, 0 Refills, Maintenance, 06/10/21 7:25:00 EDT, [facility], 177, cm, 06/02/2111:35:00 EDT, Height, 108, kg, 05/24/21 19:44:00 ED... Start Date: 06/10/21 Status: Ordered OxyCONTIN 15 mg oral tablet, extended release See Instructions, TAKE 1 TABLET BY MOUTH EVERY 12 HOURS NEEDED FOR SEVERE PAIN FOR 28 DAYS, # 56tablet, 0 Refills, Maintenance, 05/12/21 14:36:00 EDT, [facility], 05/13[facility], 167, cm, 01/14/20 9:59:00 EDT, [...] 12/19/21 11:01:00 EST, 06/22/21 11:01:00 EDT, Aerosol, [facility], replaces proair, 177, cm, 06/02/21 11:35:00 EDT, Height, 108, kg, 04/30... Start Date: 06/22/21 Stop Date: 12/19/21 Status: Ordered Zofran 4 mg oral tablet 1 tablet = 4 mg, By Mouth, Every 8 hours, PRN Nausea & Vomiting, # 12 tablet, 0 Refills, Acute 06/09/22 10:43:00 EDT, 06/09/21 10:43:00 EDT, Tablet, [facility], Partial fill upon patient request if the prescription is for a schedule II... 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
--- OUTSIDE RECORDS SUMMARY | 2023-12-11 08:25 | XMS_ITS | Continuity of Care Document ---
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 Name Role Phone Cesario SCHULER, Demario Primary Care Physician [place] [facility] [place] 06/27/21 [facility] [address] [place], [place] [address] Allergies, Adverse Reactions, Alerts Substance [...] 11 10/08/07 Give n 1Result Comment: [facility]: [id number] 2Result Comment: [id number] given w/out incident 3Result Comment: [08/17/2018] [facility] [id number] 4Result Comment: [08/31/2017] given w/out incident [facility] [id number] 5Result Comment: [08/21/2014] given w/o incident...AA 6Result Comment: [07/25/2013] given w/out incident 7Admin Note: vis sheet given. 8Admin Note: historial data 9Result Comment: [id number] 10Admin Note: mass bio 11Admin Note: sanofi [...] each, 3 Refills,Maintenance, 05/28/21 18:23:00 EDT, Aerosol, [facility]/pharmacy #[id number], replaces Rx for symbicort not covered by her insurance, 2 puffs Inhalation 2 times a... Start Date: 05/28/21 Stop Date: 05/23/22 Status: Ordered albuterol 0.083% inhalation solution 3 mL = 2.5 mg, Inhalation, Every 6 hours, PRN for wheezing, Dx: COPD J44.9, # 60 each, 2 Refills, Maintenance, 06/02/21 11:29:00 EDT, Solution, [facility] Partial fill upon patient request if the prescription is for a schedule II opio... Start Date: 06/02/21 Status: Ordered amitriptyline 100 mg oral tablet 1.5 tablet = 150 mg, By Mouth, Daily at bedtime, # 135 tablet, 3 Refills, Maintenance, 06/02/21 11:36:00 EDT, Tablet, [facility] 177, cm, 06/02/21 11:35:00 EDT, Height, 108, kg, 05/24/21 19:44:00 EDT, Dry Weight Start Date: 06/02/21 Stop Date: 05/28/22 Status: Ordered amLODIPine 10 mg oral tablet 10 mg, 1, tablet, By Mouth, Daily, # 90 tablet, Refills 3, Tot. Refills 3, Maintenance, 06/02/21 11:36:00 EDT, Route to Pharmacy Electronically, [facility], 177, cm, 06/02/21 11:35:00EDT, Height, 108, kg, 05/24/21 19:44:00 EDT, Dry We... Start Date: 06/02/21 Stop Date: 05/28/22 Status: Ordered atorvastatin 20 mg oral tablet 1 tablet = 20 mg, By Mouth, Daily, # 90 tablet, 3 Refills, Maintenance, 05/11/20 9:45:00 EDT, Tablet, [facility], 167, cm, 01/14/20 9:59:00 EDT, Height Start [...] Refills, Maintenance, 09/29/20 14:40:00 EST, ER Tablet, [facility] increase in dose, 167, cm, 01/14/20 9:59:00 EDT, Height Start Date: 09/29/20 Stop Date: 09/24/21 Status: Ordered busPIRone 10 mg oral tablet 10 mg, 1, tablet, By Mouth, 2 times a day, # 180 tablet, Refills 3, Tot. Refills 3, Maintenance, 07/07/20 12:31:00 EDT, Route to Pharmacy Electronically, [facility], 167, cm, 209:59:00 EDT, Height Start Date: 07/07/20 Stop Date: 07/02/21 Status: Ordered cetirizine 10 mg oral tablet 1 tablet = 10 mg, By Mouth, Daily, PRN for allergy symptoms, # 30 tablet, 2 Refills, Maintenance, 06/01/21 14:45:00 EDT, Tablet, [facility], 177, cm, 05/26/21 12:02:00 EDT, Height, 108, [...] kit, 1 Refills, Soft Stop,04/16/20 10:16:00 EDT, [facility], 167, cm, 01/14/20 9:59:00 EDT, Height Start Date: 04/16/20 Status: Ordered FLUoxetine 20 mg oral capsule 3, capsule, By Mouth, Daily, # 270 capsule, Refills 0, Tot. Refills 0, Maintenance, 06/01/21 17:20:00 EDT, Route to Pharmacy Electronically, [facility], 177, cm, 05/26/21 12:02:00 EDT, Height, 108, [...] 06/02/21 11:36:00 EDT, Route to Pharmacy Electronically, [facility], lower dose, 177, cm, 06/02/21 11:35:00 EDT, Height, 108, kg, 05/24/21 19:44:00... Start Date: 06/02/21 Stop Date: 05/28/22 Status: Ordered Mapap Arthritis Pain 650 mg oral tablet, extended release See Instructions, TAKE 2 TABLETS BY MOUTH EVERY 8 HOURS NEEDED FOR PAIN FOR 30 DAYS, # 90 tablet, 5 Refills, Acute, [facility], 167, cm, 01/14/20 9:59:00 EDT, Height Start [...] 56tablet, 0 Refills, Maintenance, 06/10/21 7:25:00 EDT, [facility], 177, cm, 06/02/2111:35:00 EDT, Height, 108, kg, 05/24/21 19:44:00 ED... Start Date: 06/10/21 Status: Ordered OxyCONTIN 15 mg oral tablet, extended release See Instructions, TAKE 1 TABLET BY MOUTH EVERY 12 HOURS NEEDED FOR SEVERE PAIN FOR 28 DAYS, # 56tablet, 0 Refills, Maintenance, 05/12/21 14:36:00 EDT, [facility], [facility], 167, cm, 01/14/20 9:59:00 EDT, [...] 12/19/21 11:01:00 EST, 06/22/21 11:01:00 EDT, Aerosol, [facility], replaces proair, 177, cm, 06/02/21 11:35:00 EDT, Height, 108, kg, 04/30... Start Date: 06/22/21 Stop Date: 12/19/21 Status: Ordered Zofran 4 mg oral tablet 1 tablet = 4 mg, By Mouth, Every 8 hours, PRN Nausea & Vomiting, # 12 tablet, 0 Refills, Acute 06/09/22 10:43:00 EDT, 06/09/21 10:43:00 EDT, Tablet, [facility], Partial fill upon patient request if the prescription is for a schedule II... Start Date: 06/09/21 Stop Date: 06/09/22 Status: Ordered zolpidem 10 mg oral tablet 1 tablet, By Mouth, Daily at bedtime, PRN NEEDED FOR INSOMNIA, # 28 tablet, 0 Refills, Acute 07/07/21 16:10:00 EDT, 06/02/21 16:10:00 EDT, [facility] [address] 177, cm, 06/02/21 [...]
--- OUTSIDE RECORDS SUMMARY | 2023-12-11 08:25 | XMS_ITS | Continuity of Care Document ---
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 [id number] 3Result Comment: [08/31/2017] given w/out incident [facility]: [id number] 4Result Comment: [08/21/2014] given w/o incident...AA 5Result Comment: [07/25/2013] given w/out incident 6Admin Note: vis sheet given. 7Admin Note: historial data 8Result Comment: [id number] 9Admin Note: mass bio 10Admin Note: sanofi [...] 04/23/19 10:58:48 EDT, Route to Pharmacy Electronically, [id number], [facility] Start Date: 04/23/19 Stop Date: 04/17/20 [...] 04/15/19 17:12:39 EDT, Route to Pharmacy Electronically, [id number], [facility] Start Date: 04/15/19 Stop Date: 04/09/20 [...] Maintenance, 01/22/1911:29:30 EDT, Route to Pharmacy Electronically, [id number], [facility], Pt howie stop cymbalta Start Date: [...] 01/14/20 10:17:00 EDT, Route to Pharmacy Electronically, [facility], 167, cm, 01/14/20 9:59:00 EDT, Height Start Date: 01/14/20 Stop Date: 01/08/21 Status: Ordered losartan 50 mg oral tablet 50 mg, 1, tablet, By Mouth, Daily, # 90 tablet, Refills 3, Tot. Refills 3, Maintenance, 01/14/20 10:17:00 EDT, Route to Pharmacy Electronically, [facility], lower dose, 167, cm, 01/14/20 9:59:00 EDT, Height Start Date: 01/14/20 Stop Date: 01/08/21 Status: Ordered Meclizine By Mouth, 3 times a day, 0 Refills, Maintenance, 12/14/18 15:25:26 EST Start Date: 12/14/18 Status: Ordered nystatin topical [id number] u/gm powder See Instructions, APPLY TOPICALLY TO AFFECTED AREA TWO TIMES A DAY FOR 14 DAYS, # 30 Gm, 0 Refills,Acute, [facility], 14, APPLY TOPICALLY TO AFFECTED AREA TWO [...] # 56 tablet, 0 Refills, Hard Stop 01/20/20 13:34:00 EDT, 12/23/19 13:34:00 EST, ER Tablet, [facility]... Start Date: 12/23/19 Stop Date: 01/20/20 Status: Ordered predniSONE 20 mg oral tablet 1 tablet = 20 mg, By Mouth, Daily, for 4 days, with food or milk, # 4 tablet, 0 Refills, Acute 01/18/20 10:15:00 EDT, 01/14/20 10:15:00 EDT, Tablet, [facility] 167, cm, 01/14/20 9:59:00 EDT, Height Start Date: 01/14/20 Stop Date: 01/18/20 Status: Ordered Protonix 40 mg oral delayed release tablet 1 tablet = 40 mg, By Mouth, Daily, # 90 tablet, 3 Refills, Maintenance, 04/23/19 10:58:45 EDT, EC Tablet Start Date: 04/23/19 Stop Date: 04/17/20 Status: Ordered Tamiflu 75 mg oral capsule 1 capsule = 75 mg, By Mouth, 2 times a day, for 5 days, # 10 capsule, 0 Refills, Acute 01/19/20 10:15:00 EDT, 01/14/20 10:15:00 EDT, Capsule, [facility] 167, cm, 01/14/20 9:59:00 EDT, Height Start Date: 01/14/20 Stop Date: 01/19/20 Status: Ordered Ventolin HFA 108 mcg/inh inhalation aerosol with adapter 2 puffs, Inhalation, 4 times a day, PRN for wheezing, # 1 each, 5 Refills, Soft Stop, 01/14/20 10:16:00 EDT, Aerosol, [facility] replaces proair, 167, cm, 01/14/20 9:59:00 EDT, Height Start Date: 01/14/20 Stop Date: 07/12/20 Status: Ordered Zithromax Z-Bonilla 250 mg oral tablet See Instructions, as directed on package labeling, # 1 pack/packet, 0 Refills, Maintenance, 01/14/20 10:15:00 EDT, [facility] 167, cm, 01/14/20 9:59:00 EDT, Height Start Date: 01/14/20 Status: Ordered zolpidem 10 mg oral tablet 1 tablet = 10 mg, By Mouth, Daily at bedtime, PRN as needed for insomnia, # 28 tablet, 0 Refills, Soft Stop, 12/30/19 17:23:00 EST, [facility] 167, cm, 10/07/19 10:55:00 EST, Height Start Date: 12/30/19 Stop Date: 01/27/20 Status: Ordered Problem List Condition Effective Dates [...] mellitus (aunt)(Confirmed) Active FH: 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 (mom)(Confirmed) 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
--- OUTSIDE RECORDS SUMMARY | 2023-12-11 08:25 | XMS_ITS | Continuity of Care Document ---
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 Role Phone Demario Nassar MD Primary Care Physician Encounter [facility] Date(s): 02/03/21 - 03/05/21 [facility] [address] [place], [place] [address] Allergies, Adverse Reactions, Alerts Substance [...] 11 10/08/07 Give n 1Result Comment: [facility]: 30828-482-61 2Result Comment: [id number] given w/out incident 3Result Comment: [08/17/2018] [facility] [id number] 4Result Comment: [08/31/2017] given w/out incident [facility]: [id number] 5Result Comment: [08/21/2014] given w/o incident...AA 6Result Comment: [07/25/2013] given w/out incident 7Admin Note: vis sheet given. 8Admin Note: historial data 9Result Comment: [id number] 10Admin Note: mass bio 11Admin Note: sanofi [...] each, 3 Refills,Maintenance, 04/16/20 10:16:00 EDT, Aerosol, [facility], replaces Rx for symbicort not covered by her insurance, 2 puffs Inhalation 2... Start Date: 04/16/20 Stop Date: 04/11/21 Status: Ordered amitriptyline 100 mg oral tablet 1.5 tablet = 150 mg, By Mouth, Daily at bedtime, # 135 tablet, 3 Refills, Maintenance, 04/16/20 10:16:00 EDT, Tablet, [facility] 167, cm, 01/14/20 9:59:00 EDT, Height Start Date: 04/16/20 Stop Date: 04/11/21 Status: Ordered amLODIPine 10 mg oral tablet 10 mg, 1, tablet, By Mouth, Daily, # 90 tablet, Refills 3, Tot. Refills 3, Maintenance, 04/16/20 10:16:00 EDT, Route to Pharmacy Electronically, [facility], 167, cm, 01/14/20 9:59:00 EDT, Height [...] 3 Refills, Maintenance, 05/11/20 9:45:00 EDT, Tablet, [facility] 167, cm, 01/14/20 9:59:00 EDT, [...] Refills, Maintenance, 09/29/20 14:40:00 EST, ER Tablet, [facility], increase in dose, 167, cm, 01/14/20 9:59:00 EDT, Height Start Date: 09/29/20 Stop Date: 09/24/21 Status: Ordered busPIRone 10 mg oral tablet 10 mg, 1, tablet, By Mouth, 2 times a day, # 180 tablet, Refills 3, Tot. Refills 3, Maintenance, 07/07/20 12:31:00 EDT, Route to Pharmacy Electronically, [facility] 167, cm, 209:59:00 EDT, Height Start Date: 07/07/20 Stop Date: 07/02/21 Status: Ordered cetirizine 10 mg oral tablet 1 tablet = 10 mg, By Mouth, Daily, PRN for allergy symptoms, # 30 tablet, 8 Refills, Maintenance, 09/01/20 17:26:00 EST, Tablet, [facility], 167, cm, 01/14/20 9:59:00 EDT, Height Start Date: 09/01/20 Stop Date: 05/29/21 Status: Ordered chlorthalidone 25 mg oral tablet 25 mg, 1, tablet, By Mouth, Daily, # 90 tablet, Refills 3, Tot. Refills 3, Maintenance, 04/16/20 10:15:00 EDT, Route to Pharmacy Electronically, [facility], replaces hydrochlorothiazide, 167, cm, 01/14/20 9:59:00 [...] kit, 1 Refills, Soft Stop,04/16/20 10:16:00 EDT, [facility], 167, cm, 01/14/20 9:59:00 EDT, Height Start Date: 04/16/20 Status: Ordered FLUoxetine 20 mg oral capsule 3, capsule, By Mouth, Daily, # 270 capsule, Refills 3, Tot. Refills 0, Maintenance, 02/21/20 15:09:00 EDT, Route to Pharmacy Electronically, [facility], 167, cm, 01/14/20 9:59:00 EDT, Height Start [...] 01/14/20 10:17:00 EDT, Route to Pharmacy Electronically, [facility], lower dose, 167, cm, 01/14/20 9:59:00 EDT, Height Start Date: 01/14/20 Stop Date: 01/08/21 Status: Ordered Meclizine By Mouth, 3 times a day, 0 Refills, Maintenance, 12/14/18 15:25:26 EST Start Date: 12/14/18 Status: Ordered nystatin topical [id number] u/gm powder See Instructions, APPLY TOPICALLY TO AFFECTED AREA TWO TIMES A DAY FOR 14 DAYS, # 30 Gm, 0 Refills,Acute, [facility], 14, APPLY TOPICALLY TO AFFECTED AREA TWO TIMES A DAY FOR 14 DAYS, 167,cm, 10/07/19 10:55:00 EST, Height Start Date: 11/21/19 Status: Ordered OxyCONTIN 15 mg oral tablet, extended release See Instructions, TAKE 1 TABLET BY MOUTH EVERY 12 HOURS NEEDED FOR SEVERE PAIN FOR 28 DAYS, # 56tablet, 0 Refills, Maintenance, 02/19/21 12:47:00 EDT, [facility], 167, cm, 01/14/20 9:59:00 EDT, Height Start Date: 02/19/21 Status: Ordered Periwash Perineal cleaning solution Periwash [...] 08/02/21 17:29:00 EDT, 02/03/21 17:29:00 EDT, Aerosol, [facility] replaces proair, 167, cm, 01/14/20 9:59:00 EDT, Height Start Date: 02/03/21 Stop Date: 08/02/21 Status: Ordered zolpidem 10 mg oral tablet 1 tablet = 10 mg, By Mouth, Daily at bedtime, PRN as needed for insomnia, # 28 tablet, 0 Refills, Soft Stop, 02/05/21 15:06:00 EDT, [facility], 167, cm, 01/14/20 9:59:00 EDT, Height Start Date: 02/05/21 Stop Date: 03/05/21 Status: Ordered Problem List Condition Effective Dates [...] Active FH: 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 (mom)(Confirmed) 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
--- OUTSIDE RECORDS SUMMARY | 2023-12-11 08:25 | XMS_ITS | Continuity of Care Document ---
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 Name Role Phone Demario Nassar MD Primary Care Physician [place] [facility] [place]): 03/09/21 - 04/08/21 [facility] [address] [place], [place] [address] Allergies, Adverse Reactions, Alerts Substance [...] 11 10/08/07 Give n 1Result Comment: [facility]: [id number] 2Result Comment: [id number] given w/out incident 3Result Comment: [08/17/2018] [facility] [id number] 4Result Comment: [08/31/2017] given w/out incident [facility]: [id number] 5Result Comment: [08/21/2014] given w/o incident...AA 6Result Comment: [07/25/2013] given w/out incident 7Admin Note: vis sheet given. 8Admin Note: historial data 9Result Comment: [id number] 10Admin Note: mass bio 11Admin Note: sanofi [...] 3 Refills,Maintenance, 04/16/20 10:16:00 EDT, Aerosol, [facility], replaces Rx for symbicort not covered by her insurance, 2 puffs Inhalation 2... Start Date: 04/16/20 Stop Date: 04/11/21 Status: Ordered amitriptyline 100 mg oral tablet 1.5 tablet = 150 mg, By Mouth, Daily at bedtime, # 135 tablet, 3 Refills, Maintenance, 04/16/20 10:16:00 EDT, Tablet, [facility] 167, cm, 01/14/20 9:59:00 EDT, Height Start Date: 04/16/20 Stop Date: 04/11/21 Status: Ordered amLODIPine 10 mg oral tablet 10 mg, 1, tablet, By Mouth, Daily, # 90 tablet, Refills 3, Tot. Refills 3, Maintenance, 04/16/20 10:16:00 EDT, Route to Pharmacy Electronically, [facility], 167, cm, 01/14/20 9:59:00 EDT, Height Start [...] 3 Refills, Maintenance, 05/11/20 9:45:00 EDT, Tablet, [facility] 167, cm, 01/14/20 9:59:00 EDT, [...] Maintenance, 09/29/20 14:40:00 EST, ER Tablet, [facility], increase in dose, 167, cm, 01/14/20 9:59:00 EDT, Height Start Date: 09/29/20 Stop Date: 09/24/21 Status: Ordered busPIRone 10 mg oral tablet 10 mg, 1, tablet, By Mouth, 2 times a day, # 180 tablet, Refills 3, Tot. Refills 3, Maintenance, 07/07/20 12:31:00 EDT, Route to Pharmacy Electronically, [facility] 167, cm, 209:59:00 EDT, Height Start Date: 07/07/20 Stop Date: 07/02/21 Status: Ordered cetirizine 10 mg oral tablet 1 tablet = 10 mg, By Mouth, Daily, PRN for allergy symptoms, # 30 tablet, 8 Refills, Maintenance, 09/01/20 17:26:00 EST, Tablet, [facility], 167, cm, 01/14/20 9:59:00 EDT, Height Start Date: 09/01/20 Stop Date: 05/29/21 Status: Ordered chlorthalidone 25 mg oral tablet 25 mg, 1, tablet, By Mouth, Daily, # 90 tablet, Refills 3, Tot. Refills 3, Maintenance, 04/16/20 10:15:00 EDT, Route to Pharmacy Electronically, [facility], replaces hydrochlorothiazide, 167, cm, 01/14/20 9:59:00 EDT, [...] 1 Refills, Soft Stop,04/16/20 10:16:00 EDT, [facility], 167, cm, 01/14/20 9:59:00 EDT, Height Start Date: 04/16/20 Status: Ordered FLUoxetine 20 mg oral capsule 3, capsule, By Mouth, Daily, # 270 capsule, Refills 3, Tot. Refills 0, Maintenance, 02/21/20 15:09:00 EDT, [facility], [facility], 167, cm, 01/14/20 9:59:00 EDT, Height [...] 10:17:00 EDT, Route to Pharmacy Electronically, [facility], lower dose, 167, cm, 01/14/20 9:59:00 EDT, Height Start Date: 01/14/20 Stop Date: 01/08/21 Status: Ordered Meclizine By Mouth, 3 times a day, 0 Refills, Maintenance, 12/14/18 15:25:26 EST Start Date: 12/14/18 Status: Ordered nystatin topical [id number] u/gm powder See Instructions, APPLY TOPICALLY TO AFFECTED AREA TWO TIMES A DAY FOR 14 DAYS, # 30 Gm, 1 Refills,Physician Stop 04/16/21 17:58:00 EDT, 03/16/21 17:58:00 EDT, [facility], 14, APPLY TOPICALLY TO AFFECTED AREA TWO TIMES A DAY FOR 14 DA... Start Date: 03/16/21 Stop Date: 04/16/21 Status: Ordered OxyCONTIN 15 mg oral tablet, extended release See Instructions, TAKE 1 TABLET BY MOUTH EVERY 12 HOURS NEEDED FOR SEVERE PAIN FOR 28 DAYS, # 56tablet, 0 Refills, Maintenance, 03/18/21 17:43:00 EDT, [facility], 167, cm, 01/14/20 9:59:00 EDT, Height Start [...] 08/02/21 17:29:00 EDT, 02/03/21 17:29:00 EDT, [facility]ol, 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
--- OUTSIDE RECORDS SUMMARY | 2023-12-11 08:25 | XMS_ITS | Continuity of Care Document ---
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 Name Role Phone Cesario SCHULER, Demario Primary Care Physician [place] [facility] [place] 08/26/22 - 09/25/22 [facility] [address] [place], [place] [address] Allergies, Adverse Reactions, Alerts Substance [...] (oldterm) 12 10/08/07 Give n 1Result Comment: [id number] given w/out incident 2Result Comment: [facility] [id number] 3Result Comment: [id number] given w/out incident 4Result Comment: [08/17/2018] [facility]NOTE 3] 53772-091-16 5Result Comment: [08/31/2017] given w/out incident [facility]: [id number] 6Result Comment: [08/21/2014] given w/o incident...AA 7Result Comment: [07/25/2013] given w/out incident 8Admin Note: vis sheet given. 9Admin Note: historial data 10Result Comment: [id number] 11Admin Note: mass bio 12Admin Note: sanofi [...] EVERY USE., # 36 Gm, 3 Refills, [facility], 90, INHALE 2 PUFFS BY MOUTH TWO TIMES A DAY RINSE MOUTH AFTER EVERY USE., 177, cm, 10/19/21 10:00:00 EST, Height, 108, kg... Start Date: 12/21/21 Status: Ordered amitriptyline 100 mg oral tablet 0.5 tablet = 50 mg, By Mouth, Daily at bedtime, # 45 tablet, 3 Refills, Maintenance, 06/02/21 11:36:00 EDT, Tablet, [facility] 177, cm, 06/02/21 11:35:00 EDT, [...] MOUTH DAILY, # 90 tablet, 3 Refills, [facility], 177, cm, 12/21/21 8:59:00 EST, Height, [...] 08/02/22 15:37:00 EDT, Route to Pharmacy Electronically, [facility], replaces spironolactone, 177, cm, 12/21/21 8:59:00 EST, Height, 114.4, kg, 04/... Start Date: 08/02/22 Stop Date: 07/28/23 Status: [...] (SEVERE ALLERGY), # 2 Unknown, 1 Refills, [facility], 177, cm, 06/02/21 11:35:00 EDT, Height, 108, kg, 05/24/21 19:44:00 EDT, Dry Weight Start Date: 09/08/21 Status: Ordered gabapentin 300 mg oral capsule See Instructions, TAKE 3 CAPSULES BY MOUTH IN THE MORNING, 2 CAPSULES EARLY PM AND 3 CAPSULES AT BEDTIME., # 900 capsule, Refills 3, Instructions Replace Required Details, Route to Pharmacy Electronically, [facility], 177, cm, 12/21/21 8:59:... Start Date: 01/11/22 Status: Ordered gloves, large gloves, large, See Instructions, # 50 each, Refills 11, Tot. Refills 11, Maintenance, use when handling soiled linen Dx: N39.4, 03/20/20 17:02:00 EDT, Supply Start Date: 03/20/20 Status: Ordered ibuprofen 600 mg oral tablet 600 mg, 1, tablet, By Mouth, Every 6 hours, PRN, for 30 days, with food or milk, # 90 tablet, Refills 1, Tot. Refills 1, Acute 10/01/22 15:46:00 EST, for pain, 08/02/22 15:46:00 EDT, Route to Pharmacy Electronically, [facility], [place]... Start Date: 08/02/22 Stop Date: 10/01/22 Status: Ordered losartan 100 mg oral tablet [...] 11 Refills, Maintenance, 08/12/22 10:25:00 EDT, [facility], 177, cm, 12/21/21 8:59:00 EST, Height, [...] , Severe, # 56 tablet, 0 Refills, Maintenance,08/29/22 10:15:00 EDT, [facility], resent, 177, cm, 12/21/21 8:59:00 EST, Height, 114.4, kg, 02/14/22 21:57:00 EDT, Dry Weight Start Date: 08/29/22 Stop Date: 09/26/22 Status: Ordered Periwash Perineal cleaning solution Periwash [...] WHEEZING, # 18 Gm, 5 Refills, Maintenance, 07/08/22 10:48:00 EDT, [facility], 177, cm, 12/21/21 8:59:00 EST, Height, 114.4, kg, 02/14/22 21:57:00 EDT, Dry Weight Start Date: 07/08/22 Status: Ordered zolpidem 10 mg oral tablet 1 tablet, By Mouth, Daily at bedtime, PRN NEEDED FOR INSOMNIA, for 28 days, # 28 tablet, 0 Refills, Acute 10/18/22 12:55:00 EST, 09/20/22 12:55:00 EST, [facility] refill on April 15, 2022, 177, cm, 12/21/21 8:59:00 EST, Height, 114.... 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 Active Cholecystectomy Confirmed 05/1993 Active COPD - Chronic obstructive pulmonary disease Confirmed Active Family history of alcoholism Confirmed Active Family history of substance abuse Confirmed Active Family history of depression Confirmed Active FH: CVA/stroke (grandmother) Confirmed Active FH: Diabetes mellitus (aunt) Confirmed Active FH: 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 (mom) 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 RN Member Role: Primary Care Nurse Name: Tri Sebastian RN Position: S RN Member Role: Primary Care Nurse Name: Demario Nassar MD Position: [facility] Primary Care Physician Member Role: PCP Address: Address: [address] [place] [address] Adult [place] [address]- Care Team Related Persons Name: EPIFANIO STYLES Address: home [address] [place] [address] [place] [id number] Name: DEUCE SEE
--- OUTSIDE RECORDS SUMMARY | 2023-12-11 08:25 | XMS_ITS | Continuity of Care Document ---
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 Name Role Phone Demario Nassar MD Primary Care Physician [place] [facility] [place]23 [place] 12/01/23 [facility] [address] [place], [place] [address] Allergies, Adverse Reactions, Alerts Substance Reaction [...] (oldterm) 15 10/08/07 Give n 1Result Comment: [id number] given w/out incident 2Early/Late Reason: Early/Late Reason: Other : not documented 3Result Comment: [id number] given w/out incident 4Result Comment: [id number] given w/out incident 5Result Comment: [facility]: [id number] 6Result Comment: [id number] given w/out incident 7Result Comment: [08/17/2018] [facility] [id number] 8Result Comment: [08/31/2017] given w/out incident [facility]: [phone] 9Result Comment: [08/21/2014] given w/o incident...AA 10Result Comment: [07/25/2013] given w/out incident 11Admin Note: vis sheet given. 12Admin Note: historial data 13Result Comment: [id number] 14Admin Note: mass bio 15Admin Note: sanofi [...] tablet, 5 Refills, Maintenance, 07/28/23 13:25:00 EDT, [facility], 167, cm, 05/29/23 18:21:00 EDT, Height, 114.4, kg, 02/14/22 21:57:00 EDT, Dry Weight Start Date: 07/28/23 Status: Ordered Advair HFA 115 mcg / 21 mcg 2 puffs, Inhalation, 2 times a day, AFTER EVERY USE., # 36 Gm, 1 Refills, Maintenance, 07/28/23 13:25:00 EDT, [facility], 90, INHALE 2 PUFFS BY MOUTH TWO TIMES A DAY RINSE MOUTH AFTER EVERYUSE., 167, cm, 05/29/23 18:21:00 EDT, Height, 114.4... Start Date: 07/28/23 Status: Ordered All Day Allergy 10 mg oral tablet 1 tablet, By Mouth, Daily, PRN NEEDED FOR ALLERGY SYMPTOMS, # 30 tablet, 5 Refills, Maintenance,06/20/23 7:39:00 EDT, [facility], 167, cm, 05/29/23 18:21:00 EDT, Height, 114.4, kg, 02/14/22 21:57:00 EDT, Dry Weight Start Date: 06/20/23 Status: Ordered amLODIPine 10 mg oral tablet 10 mg, 1, tablet, By Mouth, Daily, # 90 tablet, Refills 3, Tot. Refills 3, Maintenance, 11/25/22 15:31:00 EST, Route to Pharmacy Electronically, [facility], 177, cm, 12/21/21 8:59:00 EST, Height, 114.4, kg, 02/14/22 21:57:00 EDT, Dry W... Start Date: 11/25/22 Stop Date: 11/20/23 Status: Ordered atorvastatin 40 mg oral tablet See Instructions, TAKE 1 TABLET BY MOUTH EVERY DAY, # 90 tablet, 1 Refills, Maintenance, 11/30/23 7:19:00 EST, [facility], 167, cm, 05/29/23 18:21:00 EDT, Height, [...] Unknown, 1 Refills, Maintenance, 05/12/23 12:41:00 EDT, [facility], 167, cm, 12/05/22 10:53:00 EST, Height, 114.4, kg, 02/14/22 21:57:00 EDT,... Start Date: 05/12/23 Status: Ordered gabapentin 300 mg oral capsule See Instructions, TAKE 3 CAPSULES BY MOUTH IN THE MORNING, 3 CAPSULES EARLY PM AND 4 CAPSULES AT BEDTIME., # 900 capsule, Refills 3, Maintenance, 12/23/22 13:41:00 EST, Instructions Replace Required Details, Route to Pharm[facility]ically, [facility] Start Date: 12/23/22 Status: Ordered gloves, large gloves, large, See Instructions, # 50 each, Refills 11, Tot. Refills 11, Maintenance, use when handling soiled linen Dx: N39.4, 03/20/20 17:02:00 EDT, Supply Start Date: 03/20/20 Status: Ordered hydrochlorothiazide-triamterene 25 mg-37.5 mg oral capsule 1 capsule, By Mouth, Daily, # 90 capsule, 3 Refills, Maintenance, 11/30/23 9:52:00 EST, Capsule, [facility], replaces chlorthalidone, 1 capsule By Mouth [...] 4 Refills, Maintenance, 05/29/23 18:09:00 EDT, Tablet, [facility]., increase in dose, 167, cm, 05/29/23 17:54:00 [...] 56 tablet, 0 Refills, Maintenance,11/30/23 7:20:00 EST, [facility], 167, cm, 05/29/23 18:21:00 EDT, Height, [...] Gm, 5 Refills, Maintenance, 11/22/23 9:48:00 EST, [facility], 167, cm, 05/29/23 18:21:00 EDT, Height, 114.4, [...] Confirmed Active FH: 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 (mom) Confirmed Active group home current use of opiate analgesic Confirmed [...] RN Position: [facility] RN Member Role: Primary Care Nurse Name: Tri Sebastian RN Position: [facility] RN Member Role: Primary Care Nurse Name: Demario Nassar MD Position: [facility] Physician - Primary Care Member Role: PCP Address: Address: [address] [place] [address] Adult & [place] [address]- Care Team Related Persons Name: EPIFANIO STYLES Address: home [address] [place] [address] [place] [address] Name: DEUCE SEE
--- OUTSIDE RECORDS SUMMARY | 2023-12-11 08:25 | XMS_ITS | Continuity of Care Document ---
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: [id number] 2Result Comment: [id number] given w/out incident 3Result Comment: [08/17/2018] [facility] [id number] 4Result Comment: [08/31/2017] given w/out incident [facility]: [id number] 5Result Comment: [08/21/2014] given w/o incident...AA 6Result Comment: [07/25/2013] given w/out incident 7Admin Note: vis sheet given. 8Admin Note: historial data 9Result Comment: [id number] 10Admin Note: mass bio 11Admin Note: sanofi [...] each, 3 Refills,Maintenance, 05/28/21 18:23:00 EDT, Aerosol, [facility]/pharmacy #[id number], replaces Rx for symbicort not covered by her insurance, 2 puffs Inhalation 2 times a... Start Date: 05/28/21 Stop Date: 05/23/22 Status: Ordered albuterol 0.083% inhalation solution 3 mL = 2.5 mg, Inhalation, Every 6 hours, PRN for wheezing, Dx: COPD J44.9, # 60 each, 2 Refills, Maintenance, 06/02/21 11:29:00 EDT, [facility] upon patient request if the prescription is for a schedule II opio... Start Date: 06/02/21 Status: Ordered amitriptyline 100 mg oral tablet 1.5 tablet = 150 mg, By Mouth, Daily at bedtime, # 135 tablet, 3 Refills, Maintenance, 06/02/21 11:36:00 EDT, Tablet, [facility], 177, cm, 06/02/21 11:35:00 EDT, Height, 108, kg, 05/24/21 19:44:00 EDT, Dry Weight Start Date: 06/02/21 Stop Date: 05/28/22 Status: Ordered amLODIPine 10 mg oral tablet 10 mg, 1, tablet, By Mouth, Daily, # 90 tablet, Refills 3, Tot. Refills 3, Maintenance, 06/02/21 11:36:00 EDT, Route to Pharmacy Electronically, [facility], 177, cm, 06/02/21 11:35:00EDT, Height, 108, kg, 05/24/21 19:44:00 EDT, Dry We... Start Date: 06/02/21 Stop Date: 05/28/22 Status: Ordered atorvastatin 20 mg oral tablet 1 tablet = 20 mg, By Mouth, Daily, # 90 tablet, 1 Refills, Maintenance, 07/26/21 13:55:00 EDT, Tablet, [facility], 177, cm, 06/02/21 11:35:00 EDT, Height, [...] 2 Refills, Maintenance, 06/01/21 14:45:00 EDT, Tablet, [facility], 177, cm, 05/26/21 12:02:00 EDT, Height, [...] 06/01/21 17:20:00 EDT, Route to Pharmacy Electronically, [facility], 177, cm, 05/26/21 12:02:00 [...] 06/02/21 11:36:00 EDT, Route to Pharmacy Electronically, [facility], lower dose, 177, cm, 06/02/21 11:35:00 EDT, Height, 108, kg, 05/24/21 19:44:00... Start Date: 06/02/21 Stop Date: 05/28/22 Status: Ordered Mapap Arthritis Pain 650 mg oral tablet, extended release See Instructions, TAKE 2 TABLETS BY MOUTH EVERY 8 HOURS NEEDED FOR PAIN FOR 30 DAYS, # 90 tablet, 5 Refills, Acute, [facility], 167, cm, 01/14/20 9:59:00 EDT, Height [...] 56tablet, 0 Refills, Maintenance, 08/02/21 15:57:00 EDT, [facility], Pt requests an early refill for [...] 12/19/21 11:01:00 EST, 06/22/21 11:01:00 EDT, Aerosol, [facility], replaces proair, 177, cm, 06/02/21 11:35:00 EDT, Height, 108, kg, 2... Start Date: 06/22/21 Stop Date: 12/19/21 Status: Ordered Zofran 4 mg oral tablet 1 tablet = 4 mg, By Mouth, Every 8 hours, PRN Nausea & Vomiting, # 12 tablet, 0 Refills, Acute 06/09/22 10:43:00 EDT, 06/09/21 10:43:00 EDT, Tablet, [facility], Partial fill upon patient request if the prescription is for a schedule II... Start Date: 06/09/21 Stop Date: 06/09/22 Status: Ordered zolpidem 10 mg oral tablet 1 tablet, By Mouth, Daily at bedtime, PRN NEEDED FOR INSOMNIA, # 28 tablet, 0 Refills, Acute 08/30/21 15:58:00 EDT, 08/02/21 15:57:00 EDT, [facility], Pt requests an early refill for [...] mellitus (aunt)(Confirmed) Active FH: 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 (mom)(Confirmed) Active longterm current use 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
--- OUTSIDE RECORDS SUMMARY | 2023-12-11 08:25 | XMS_ITS | Continuity of Care Document ---
Author Name Unknown Organization [facility] Address [address] [place] [address]- Care Team Providers Care Edi Consultant Name Role Phone Cesario SCHULER, Demario Primary Care Physician [place] [facility] [place]23 [place] 08/09/23 [facility] [address] [place], [place] [address] Allergies, Adverse Reactions, Alerts Substance Reaction [...] Reason: Other : not documented 2Result Comment: [id number] given w/out incident 3Result Comment: [id number] given w/out incident 4Result Comment: [facility]: [id number] 5Result Comment: [id number] given w/out incident 6Result Comment: [08/17/2018] [facility] [id number] 7Result Comment: [08/31/2017] given w/out incident [facility]: [id number] 8Result Comment: [08/21/2014] given w/o incident...AA 9Result Comment: [07/25/2013] given w/out incident 10Admin Note: vis sheet given. 11Admin Note: historial data 12Result Comment: [id number] 13Admin Note: mass bio 14Admin Note: sanofi [...] tablet, 5 Refills, Maintenance, 07/28/23 13:25:00 EDT, [facility], 167, cm, 05/29/23 18:21:00 EDT, Height, 114.4, kg, 02/14/22 21:57:00 EDT, Dry Weight Start Date: 07/28/23 Status: Ordered Advair HFA 115 mcg / 21 mcg 2 puffs, Inhalation, 2 times a day, AFTER EVERY USE., # 36 Gm, 1 Refills, Maintenance, 07/28/23 13:25:00 EDT, [facility], 90, INHALE 2 PUFFS BY MOUTH TWO TIMES A DAY RINSE MOUTH AFTER EVERYUSE., 167, cm, 05/29/23 18:21:00 EDT, Height, 114.4... Start Date: 07/28/23 Status: Ordered All Day Allergy 10 mg oral tablet 1 tablet, By Mouth, Daily, PRN NEEDED FOR ALLERGY SYMPTOMS, # 30 tablet, 5 Refills, Maintenance,06/20/23 7:39:00 EDT, [facility], 167, cm, 05/29/23 18:21:00 EDT, Height, 114.4, kg, 02/14/22 21:57:00 EDT, Dry Weight Start Date: 06/20/23 Status: Ordered amLODIPine 10 mg oral tablet 10 mg, 1, tablet, By Mouth, Daily, # 90 tablet, Refills 3, Tot. Refills 3, Maintenance, 11/25/22 15:31:00 EST, Route to Pharmacy Electronically, [facility], 177, cm, 12/21/21 8:59:00 EST, Height, 114.4, kg, 02/14/22 21:57:00 EDT, Dry W... Start Date: 11/25/22 Stop Date: 11/20/23 Status: Ordered atorvastatin 40 mg oral tablet 1 tablet, By Mouth, Daily, # 90 tablet, 1 Refills, Maintenance, 02/03/23 16:11:00 EDT, [facility]., 167, cm, 12/05/22 10:53:00 EST, Height, [...] 05/29/23 18:09:00 EDT, [facility], replaces spironolactone, 167, cm, 05/29/23 [...] Unknown, 1 Refills, Maintenance, 05/12/23 12:41:00 EDT, [facility], 167, cm, 12/05/22 10:53:00 EST, Height, 114.4, kg, 02/14/22 21:57:00 EDT,... Start Date: 05/12/23 Status: Ordered gabapentin 300 mg oral capsule See Instructions, TAKE 3 CAPSULES BY MOUTH IN THE MORNING, 3 CAPSULES EARLY PM AND 4 CAPSULES AT BEDTIME., # 900 capsule, Refills 3, Maintenance, 12/23/22 13:41:00 EST, Instructions Replace Required Details, Route to Pharmacy Electronically, [facility] Start Date: 12/23/22 Status: Ordered gloves, large [...] 08/19/23 7:39:00 EDT, 07/20/23 7:39:00 EDT, Tablet, [facility], Partial fill upon patient request if the pre... Start Date: 07/20/23 Stop Date: 08/19/23 Status: Ordered losartan 100 mg oral tablet 1 tablet = 100 mg, By Mouth, Daily, # 90 tablet, 4 Refills, Maintenance, 05/29/23 18:09:00 EDT, Tablet, [facility], increase in dose, 167, cm, 05/29/23 [...] 56 tablet, 0 Refills, Maintenance,08/04/23 17:31:00 EDT, [facility], may fill no earlier than 08/08/23, 167, [...] Gm, 5 Refills, Maintenance, 05/03/23 18:41:00 EDT, 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
--- OUTSIDE RECORDS SUMMARY | 2023-12-11 08:25 | XMS_ITS | Continuity of Care Document ---
Author Name Unknown Organization [facility] Address [address] [place] [address]- Care Team Providers Care Friction Paint Machine Tender Name Role Phone Demario Nassar MD Primary Care Physician [place] [facility] [place]/14/20 - 01/21/20 [facility] [address] [place] [address]- [facility] Attending Physician: Demario Nassar MD Allergies, Adverse [...] (oldterm) 10 10/08/07 Give n 1Result Comment: [id number] given w/out incident 2Result Comment: [08/17/2018] [facility] [id number] 3Result Comment: [08/31/2017] given w/out incident [facility] [id number] 4Result Comment: [08/21/2014] given w/o incident...AA 5Result Comment: [07/25/2013] given w/out incident 6Admin Note: vis sheet given. 7Admin Note: historial data 8Result Comment: [id number] 9Admin Note: mass bio 10Admin Note: Biogenic Reagentsofi Medications Advair HFA 115 mcg / 21 [...] 04/23/19 10:58:48 EDT, Route to Pharmacy Electronically, [id number], [facility] Start Date: 04/23/19 Stop Date: 04/17/20 Status: [...] 04/15/19 17:12:39 EDT, Route to Pharmacy Electronically, [id number], [facility]. Start Date: 04/15/19 Stop Date: 04/09/20 Status: [...] Maintenance, 01/22/1911:29:30 EDT, Route to Pharmacy Electronically, [id number], [facility]., Pt howie stop cymbalta Start Date: 01/22/19 [...] 01/14/20 10:17:00 EDT, Route to Pharmacy Electronically, [facility], 167, cm, 01/14/20 9:59:00 EDT, Height Start Date: 01/14/20 Stop Date: 01/08/21 Status: Ordered losartan 50 mg oral tablet 50 mg, 1, tablet, By Mouth, Daily, # 90 tablet, Refills 3, Tot. Refills 3, Maintenance, 01/14/20 10:17:00 EDT, Route to Pharmacy Electronically, [facility], lower dose, 167, cm, 01/14/20 9:59:00 EDT, Height Start Date: 01/14/20 Stop Date: 01/08/21 Status: Ordered Meclizine By Mouth, 3 times a day, 0 Refills, Maintenance, 12/14/18 15:25:26 EST Start Date: 12/14/18 Status: Ordered nystatin topical 381023 u/gm powder See Instructions, APPLY TOPICALLY TO AFFECTED AREA TWO TIMES A DAY FOR 14 DAYS, # 30 Gm, 0 Refills,Acute, [facility], 14, APPLY TOPICALLY TO AFFECTED AREA [...] # 56 tablet, 0 Refills, Hard Stop 02/17/20 9:46:00 EDT, 01/20/20 9:46:00 EDT, ER Tablet, [facility]... Start Date: 01/20/20 Stop Date: 02/17/20 Status: Ordered Protonix 40 mg oral delayed [...] Refills, Soft Stop, 01/14/20 10:16:00 EDT, Aerosol, [facility] replaces proair, 167, cm, 01/14/20 9:59:00 EDT, Height Start Date: 01/14/20 Stop Date: 07/12/20 Status: Ordered Zithromax Z-Bonilla 250 mg oral tablet See Instructions, as directed on package labeling, # 1 pack/packet, 0 Refills, Maintenance, 01/14/20 10:15:00 EDT, [facility]., 167, cm, 01/14/20 9:59:00 EDT, Height Start Date: 01/14/20 Status: Ordered zolpidem 10 mg oral tablet 1 tablet = 10 mg, By Mouth, Daily at bedtime, PRN as needed for insomnia, # 28 tablet, 0 Refills, Soft Stop, 12/30/19 17:23:00 EST, [facility] 167, cm, 10/07/19 10:55:00 EST, Height [...] Active Diabetes mellitus type 2, controlled(Confirmed) Active Vital Signs Most recent to oldest [Reference Range]: 1 Height 167 cm (01/14/20 9:59 AM) Weight 114.4 kg (01/14/20 9:59 AM) Oxygen Saturation [94-100 %] 91 % *L* (01/14/20 9:59 AM) Pulse Rate [55-90 bpm] 73 bpm (01/14/20 9:59 AM) Body Mass Index [18.5-24.99] 41.02 *>HHI* (01/14/20 9:59 AM) Blood Pressure [90-138/55-84 mm Hg] 156/ 90mm Hg *H* (01/14/20 9:59 AM) Temperature [96.8-100.4 DegF] 98.1 DegF (01/14/20 9:59 AM) Mode of Delivery (Oxygen) Room air (01/14/20 9:59 AM) Blood pressure sites Arm, right (01/14/20 9:59 AM) Temperature Route Oral (01/14/20 9:59 AM) Weight Obtained Via Standing scale (01/14/20 9:59 AM) Social History Social History Type Response Smoking Status Former smoker entered on: 12/04/14 Sex
--- OUTSIDE RECORDS SUMMARY | 2023-12-11 08:25 | XMS_ITS | Continuity of Care Document ---
Author Name Unknown Organization [facility] Address [address] [place] [address]- Care Team Providers Care Candy Cutter Hand Name Role Phone Demario Nassar MD Primary Care Physician [facility]counter [facility] Date(s): 04/21/22 - 05/21/22 [facility] [address] [place], [place] [address] Allergies, Adverse Reactions, Alerts [...] (oldterm) 12 10/08/07 Give n 1Result Comment: [id number] given w/out incident 2Result Comment: [facility]: [id number] 3Result Comment: [id number] given w/out incident 4Result Comment: [08/17/2018] [facility] [id number] 5Result Comment: [08/31/2017] given w/out incident [facility]: [id number] 6Result Comment: [08/21/2014] given w/o incident...AA 7Result Comment: [07/25/2013] given w/out incident 8Admin Note: vis sheet given. 9Admin Note: historial data 10Result Comment: [id number] 11Admin Note: mass bio 12Admin Note: sanofi [...] EVERY USE., # 36 Gm, 3 Refills, [facility], 90, INHALE 2 PUFFS BY MOUTH TWO TIMES A DAY RINSE MOUTH AFTER EVERY USE., 177, cm, 10/19/21 10:00:00 EST, Height, 108, kg... Start Date: 12/21/21 Status: Ordered amitriptyline 100 mg oral tablet 0.5 tablet = 50 mg, By Mouth, Daily at bedtime, # 45 tablet, 3 Refills, Maintenance, 06/02/21 11:36:00 EDT, Tablet, [facility] 177, cm, 06/02/21 11:35:00 EDT, Height, 108, kg, 05/24/21 19:44:00 EDT, Dry Weight Start Date: 06/02/21 Stop Date: 05/28/22 Status: Ordered amLODIPine 10 mg oral tablet 10 mg, 1, tablet, By Mouth, Daily, # 90 tablet, Refills 1, Tot. Refills 1, Maintenance, 05/28/22 11:36:00 EDT, Route to Pharmacy Electronically, [facility], 177, cm, 10/19/21 10:00:00EST, Height, 108, kg, 05/24/21 19:44:00 EDT, Dry We... Start Date: 05/28/22 Stop Date: 11/24/22 Status: Ordered amLODIPine 10 mg oral tablet See Instructions, TAKE 1 TABLET BY MOUTH DAILY, # 90 tablet, 3 Refills, [facility], 177, cm, 12/21/21 8:59:00 EST, Height, 114.4, [...] Refills, Maintenance, 09/16/21 9:24:00 EST, ER Tablet, [facility], increase in dose, 177, cm, 06/02/21 11:35:00 EDT, Height, 108, kg, 05/24/21 19:44:00 EDT, Dry Weight Start Date: 09/16/21 Stop Date: 09/11/22 Status: Ordered busPIRone 10 mg oral tablet 15 mg, 1.5, tablet, By Mouth, 2 times a day, # 270 tablet, Refills 3, Tot. Refills 3, Maintenance, 09/16/21 9:24:00 EST, Route to Pharmacy Electronically, [facility], 177, cm, 06/02/21 11:35:00 EDT, Height, 108, kg, 05/24/21 19:44:00 E... Start Date: 09/16/21 Stop Date: 09/11/22 Status: Ordered cetirizine 10 mg oral tablet 1 tablet, By Mouth, Daily, PRN NEEDED FOR ALLERGY SYMPTOMS, # 30 tablet, 5 Refills, 04/16/22 9:35:00 EDT, [facility], 177, cm, 12/21/21 8:59:00 EST, Height, 114.4, kg, 02/14/22 21:57:00 EDT, Dry Weight Start Date: 04/16/22 Status: Ordered chlorthalidone 25 mg oral tablet 25 mg, 1, tablet, By Mouth, Daily, # 30 tablet, Refills 1, Tot. Refills 1, Maintenance, 04/29/22 14:31:00 EDT, Route to Pharmacy Electronically, [facility], replaces spironolactone, 177, cm, 12/21/21 8:59:00 [...] (SEVERE ALLERGY), # 2 Unknown, 1 Refills, [facility], 177, cm, 06/02/21 11:35:00 EDT, Height, 108, kg, 05/24/21 19:44:00 EDT, Dry Weight Start Date: 09/08/21 Status: Ordered gabapentin 300 mg oral capsule See Instructions, TAKE 3 CAPSULES BY MOUTH IN THE MORNING, 2 CAPSULES EARLY PM AND 3 CAPSULES AT BEDTIME., # 900 capsule, Refills 3, Instructions Replace Required Details, Route to Pharmacy Electronically, [facility], 177, cm, 12/21/21 8:59:... Start [...] 4 Refills, Maintenance, 03/31/22 15:03:00 EDT, Tablet, [facility], increase in dose, 177, cm, 12/21/21 8:59:00 EST, Height, 114.4, kg,02/14/22 21:57:00 EDT, Dry Weight Start Date: 03/31/22 Stop Date: 06/24/23 Status: Ordered Mapap Arthritis Pain 650 mg oral tablet, extended release 2 tablet, By Mouth, Every 8 hours, PRN NEEDED FOR PAIN FOR, for 30 days, # 90 tablet, 9 Refills,Physician Stop 10/17/22 9:00:00 EST, 12/21/21 9:00:00 EST, [facility], 177, cm, 12/21/21 8:59:00 EST, Height, [...] 56 tablet, 0 Refills, Maintenance,05/09/22 19:30:00 EDT, [facility], may dispense on 05-10-2022, 177, cm, [...] 18 Gm, 6 Refills, 12/28/21 11:00:00 EST, [facility], 177, cm, 12/21/21 8:59:00 EST, Height, 108, kg, 05/24/21 19:44:00 EDT, Dry Weight Start Date: 12/28/21 Status: Ordered Zofran 4 mg oral tablet 1 tablet = 4 mg, By Mouth, Every 8 hours, PRN Nausea & Vomiting, # 12 tablet, 0 Refills, Acute 06/09/22 10:43:00 EDT, 06/09/21 10:43:00 EDT, Tablet, [facility], Partial fill upon patient request if the prescription is for a schedule II... 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
--- OUTSIDE RECORDS SUMMARY | 2023-12-11 08:25 | XMS_ITS | Continuity of Care Document ---
Author Name Unknown Organization [facility] Address [address] [place] [address]- Care Team Providers Care New Media Strategist Name Role Phone Demario Nassar MD Primary Care Physician Encounter [facility] Date(s): 04/05/23 - 05/05/23 [facility] [address] [place], [place] [address] Allergies, Adverse Reactions, Alerts Substance Reaction [...] Reason: Other : not documented 2Result Comment: [id number] given w/out incident 3Result Comment: [id number] given w/out incident 4Result Comment: [facility]: [id number] 5Result Comment: [id number] given w/out incident 6Result Comment: [08/17/2018] [facility] [id number] 7Result Comment: [08/31/2017] given w/out incident [facility]: [id number] 8Result Comment: [08/21/2014] given w/o incident...AA 9Result Comment: [07/25/2013] given w/out incident 10Admin Note: vis sheet given. 11Admin Note: historial data 12Result Comment: [id number] 13Admin Note: mass bio 14Admin Note: sanofi [...] Gm, 1 Refills, Maintenance, 01/06/23 15:18:00 EST, [facility], 90, INHALE 2 PUFFS BY MOUTH TWO TIMES A DAY RINSE MOUTH AFTER EVERYUSE., 167, cm, 12/05/22 10:53:00 EST, Height, 114.4... Start Date: 01/06/23 Status: Ordered All Day Allergy 10 mg oral tablet 1 tablet, By Mouth, Daily, PRN NEEDED FOR ALLERGY SYMPTOMS, # 30 tablet, 6 Refills, Maintenance,11/08/22 15:08:00 EST, [facility], 177, cm, 12/21/21 8:59:00 EST, Height, 114.4, kg, 02/14/22 21:57:00 EDT, Dry Weight Start Date: 11/08/22 Status: Ordered amLODIPine 10 mg oral tablet 10 mg, 1, tablet, By Mouth, Daily, # 90 tablet, Refills 3, Tot. Refills 3, Maintenance, 11/25/22 15:31:00 EST, Route to Pharmacy Electronically, [facility], 177, cm, 12/21/21 8:59:00 EST, Height, 114.4, kg, 02/14/22 21:57:00 EDT, Dry W... Start Date: 11/25/22 Stop Date: 11/20/23 Status: Ordered atorvastatin 40 mg oral tablet 1 tablet, By Mouth, Daily, # 90 tablet, 1 Refills, Maintenance, 02/03/23 16:11:00 EDT, [facility], 167, cm, 12/05/22 10:53:00 EST, [...] Refills, Maintenance, 10/21/22 12:33:00 EST, ER Tablet, [facility], increase in dose, 177, cm, [...] 08/02/22 15:37:00 EDT, Route to Pharmacy Electronically, [facility], replaces spironolactone, 177, cm, 12/21/21 8:59:00 [...] (SEVERE ALLERGY), # 2 Unknown, 1 Refills, [facility], 177, cm, 06/02/21 11:35:00 EDT, Height, 108, kg, 05/24/21 19:44:00 EDT, Dry Weight Start Date: 09/08/21 Status: Ordered gabapentin 300 mg oral capsule See Instructions, TAKE 3 CAPSULES BY MOUTH IN THE MORNING, 3 CAPSULES EARLY PM AND 4 CAPSULES AT BEDTIME., # 900 capsule, Refills 3, Maintenance, 12/23/22 13:41:00 EST, Instructions Replace Required Details, [facility], [facility] Start Date: 12/23/22 Status: Ordered gloves, large gloves, large, See Instructions, # 50 each, Refills 11, Tot. Refills 11, Maintenance, use when handling soiled linen Dx: N39.4, 03/20/20 17:02:00 EDT, Supply Start Date: 03/20/20 Status: Ordered losartan 100 mg oral tablet 1 tablet = 100 mg, By Mouth, Daily, # 90 tablet, 4 Refills, Maintenance, 03/31/22 15:03:00 EDT, Tablet, [facility], increase in dose, 177, cm, 12/21/21 8:59:00 EST, Height, 114.4, kg,02/14/22 21:57:00 EDT, Dry Weight Start Date: 03/31/22 Stop Date: 06/24/23 Status: Ordered Mapap Arthritis Pain 650 mg oral tablet, extended release 2 tablet, By Mouth, Every 8 hours, PRN NEEDED FOR PAIN, # 90 tablet, 11 Refills, Maintenance, 08/12/22 10:25:00 EDT, [facility], 177, cm, 12/21/21 8:59:00 EST, Height, 114.4, [...] 56 tablet, 0 Refills, Maintenance,04/11/23 10:59:00 EDT, [facility]., resent, 167, cm, 12/05/22 10:53:00 EST, [...] Gm, 5 Refills, Maintenance, 05/03/23 18:41:00 EDT, [facility], 167, cm, 12/05/22 10:53:00 EST, [...] Confirmed Active FH: 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 (mom) Confirmed Active [facility] current use of opiate analgesic Confirmed Active [...] Team Personnel Name: Ermelinda Rice RN Position: [facility] RN Member Role: Primary Care Nurse Name: Tri Sebastian RN Position: [facility] RN Member Role: Primary Care Nurse Name: Demario Nassar MD Position: [facility] Physician - Primary Care Member Role: PCP Address: Address: [address] [place] [address] Adult & Pediatric Medicine [address] Care Team Related Persons Name: EPIFANIO STYLES Address: [address] [address] Name: DEUCE SEE
--- OUTSIDE RECORDS SUMMARY | 2023-12-11 08:25 | XMS_ITS | Continuity of Care Document ---
Author Name Unknown Organization [facility] Address [address] [place] [address]- Care Team Providers Care Tv Host Name Role Phone Demario Nassar MD Primary Care Physician Encounter [facility] Date(s): 06/08/21 - 07/08/21 [facility] [address] [place], [place] [address] Allergies, Adverse Reactions, Alerts Substance Reaction Severity [...] Give n 1Result Comment: [facility]: 89390-202-56 2Result Comment: [id number] given w/out incident 3Result Comment: [08/17/2018] [facility] [id number] 4Result Comment: [08/31/2017] given w/out incident [facility]: [id number] 5Result Comment: [08/21/2014] given w/o incident...AA 6Result Comment: [07/25/2013] given w/out incident 7Admin Note: vis sheet given. 8Admin Note: historial data 9Result Comment: [id number] 10Admin Note: mass bio 11Admin Note: sanofi [...] each, 3 Refills,Maintenance, 05/28/21 18:23:00 EDT, Aerosol, [facility]/pharmacy #[id number], replaces Rx for symbicort not covered by her insurance, 2 puffs Inhalation 2 times a... Start Date: 05/28/21 Stop Date: 05/23/22 Status: Ordered albuterol 0.083% inhalation solution 3 mL = 2.5 mg, Inhalation, Every 6 hours, PRN for wheezing, Dx: COPD J44.9, # 60 each, 2 Refills, Maintenance, 06/02/21 11:29:00 EDT, [facility] upon patient request if the prescription is for a schedule II opio... Start Date: 06/02/21 Status: Ordered amitriptyline 100 mg oral tablet 1.5 tablet = 150 mg, By Mouth, Daily at bedtime, # 135 tablet, 3 Refills, Maintenance, 06/02/21 11:36:00 EDT, Tablet, [facility], 177, cm, 06/02/21 11:35:00 EDT, Height, 108, kg, 05/24/21 19:44:00 EDT, Dry Weight Start Date: 06/02/21 Stop Date: 05/28/22 Status: Ordered amLODIPine 10 mg oral tablet 10 mg, 1, tablet, By Mouth, Daily, # 90 tablet, Refills 3, Tot. Refills 3, Maintenance, 06/02/21 11:36:00 EDT, Route to Pharmacy Electronically, [facility], 177, cm, 06/02/21 11:35:00EDT, Height, 108, kg, 05/24/21 19:44:00 EDT, Dry We... Start Date: 06/02/21 Stop Date: 05/28/22 Status: Ordered atorvastatin 20 mg oral tablet 1 tablet = 20 mg, By Mouth, Daily, # 90 tablet, 3 Refills, Maintenance, 05/11/20 9:45:00 EDT, Tablet, [facility], 167, cm, 01/14/20 9:59:00 EDT, Height [...] Refills, Maintenance, 09/29/20 14:40:00 EST, ER Tablet, [facility], increase in dose, 167, cm, 01/14/20 9:59:00 EDT, Height Start Date: 09/29/20 Stop Date: 09/24/21 Status: Ordered busPIRone 10 mg oral tablet 10 mg, 1, tablet, By Mouth, 2 times a day, # 180 tablet, Refills 3, Tot. Refills 3, Maintenance, 07/07/20 12:31:00 EDT, Route to Pharmacy Electronically, [facility], 167, cm, 209:59:00 EDT, Height Start Date: 07/07/20 Stop Date: 07/02/21 Status: Ordered cetirizine 10 mg oral tablet 1 tablet = 10 mg, By Mouth, Daily, PRN for allergy symptoms, # 30 tablet, 2 Refills, Maintenance, 06/01/21 14:45:00 EDT, Tablet, [facility], 177, cm, 05/26/21 12:02:00 EDT, Height, [...] kit, 1 Refills, Soft Stop,04/16/20 10:16:00 EDT, [facility], 167, cm, 01/14/20 9:59:00 EDT, Height Start Date: 04/16/20 Status: Ordered FLUoxetine 20 mg oral capsule 3, capsule, By Mouth, Daily, # 270 capsule, Refills 0, Tot. Refills 0, Maintenance, 06/01/21 17:20:00 EDT, Route to Pharmacy Electronically, [facility], 177, cm, 05/26/21 12:02:00 EDT, [...] 06/02/21 11:36:00 EDT, Route to Pharmacy Electronically, [facility], lower dose, 177, cm, 06/02/21 11:35:00 EDT, Height, 108, kg, 05/24/21 19:44:00... Start Date: 06/02/21 Stop Date: 05/28/22 Status: Ordered Mapap Arthritis Pain 650 mg oral tablet, extended release See Instructions, TAKE 2 TABLETS BY MOUTH EVERY 8 HOURS NEEDED FOR PAIN FOR 30 DAYS, # 90 tablet, 5 Refills, Acute, [facility], 167, cm, 01/14/20 9:59:00 EDT, Height [...] 56tablet, 0 Refills, Maintenance, 07/08/21 8:40:00 EDT, [facility], 177, cm, 06/02/2111:35:00 EDT, Height, 108, [...] 12/19/21 11:01:00 EST, 06/22/21 11:01:00 EDT, Aerosol, [facility]., replaces proair, 177, cm, 06/02/21 11:35:00 EDT, Height, 108, kg, 04/30... Start Date: 06/22/21 Stop Date: 12/19/21 Status: Ordered Zofran 4 mg oral tablet 1 tablet = 4 mg, By Mouth, Every 8 hours, PRN Nausea & Vomiting, # 12 tablet, 0 Refills, Acute 06/09/22 10:43:00 EDT, 06/09/21 10:43:00 EDT, Tablet, [facility]., Partial fill upon patient request if the prescription is for a schedule II... Start Date: 06/09/21 Stop Date: 06/09/22 Status: Ordered zolpidem 10 mg oral tablet 1 tablet, By Mouth, Daily at bedtime, PRN NEEDED FOR INSOMNIA, # 28 tablet, 0 Refills, Acute 08/05/21 13:21:00 EDT, 07/08/21 13:21:00 EDT, [facility]., 177, cm, 06/02/21 11:35:00 EDT, Height, [...] mellitus (aunt)(Confirmed) Active FH: 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 (mom)(Confirmed) Active long-term current use 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
--- OUTSIDE RECORDS SUMMARY | 2023-12-11 08:26 | XMS_ITS | Continuity of Care Document ---
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 Name Role Phone Demario Nassar MD Primary Care Physician Encounter [facility] [place] Date(s): 08/31/21 - 09/30/21 [facility] [address] [place], [place] [address] Allergies, Adverse Reactions, Alerts Substance [...] (oldterm) 12 10/08/07 Give n 1Result Comment: [id number] given w/out incident 2Result Comment: [facility]: [id number] 3Result Comment: [id number] given w/out incident 4Result Comment: [08/17/2018] [facility] [id number] 5Result Comment: [08/31/2017] given w/out incident [facility]: [id number] 6Result Comment: [08/21/2014] given w/o incident...AA 7Result Comment: [07/25/2013] given w/out incident 8Admin Note: vis sheet given. 9Admin Note: historial data 10Result Comment: [id number] 11Admin Note: mass bio 12Admin Note: sanofi [...] each, 3 Refills,Maintenance, 05/28/21 18:23:00 EDT, Aerosol, [facility]/pharmacy #[id number], replaces Rx for symbicort not covered by her insurance, 2 puffs Inhalation 2 times a... Start Date: 05/28/21 Stop Date: 05/23/22 Status: Ordered albuterol 0.083% inhalation solution 3 mL = 2.5 mg, Inhalation, Every 6 hours, PRN for wheezing, Dx: COPD J44.9, # 60 each, 2 Refills, Maintenance, 06/02/21 11:29:00 EDT, Solution, [facility], Partial fill upon patient request if the prescription is for a schedule II opio... Start Date: 06/02/21 Status: Ordered amitriptyline 100 mg oral tablet 1.5 tablet = 150 mg, By Mouth, Daily at bedtime, # 135 tablet, 3 Refills, Maintenance, 06/02/21 11:36:00 EDT, Tablet, [facility]., 177, cm, 06/02/21 11:35:00 EDT, Height, 108, kg, 05/24/21 19:44:00 EDT, Dry Weight Start Date: 06/02/21 Stop Date: 05/28/22 Status: Ordered amLODIPine 10 mg oral tablet 10 mg, 1, tablet, By Mouth, Daily, # 90 tablet, Refills 3, Tot. Refills 3, Maintenance, 06/02/21 11:36:00 EDT, Route to Pharmacy Electronically, [facility], 177, cm, 06/02/21 11:35:00EDT, Height, 108, kg, 05/24/21 19:44:00 EDT, Dry We... Start Date: 06/02/21 Stop Date: 05/28/22 Status: Ordered atorvastatin 20 mg oral tablet 1 tablet = 20 mg, By Mouth, Daily, # 90 tablet, 1 Refills, Maintenance, 07/26/21 13:55:00 EDT, Tablet, [facility], 177, cm, 06/02/21 11:35:00 EDT, Height, [...] Refills, Maintenance, 09/16/21 9:24:00 EST, ER Tablet, [facility]., increase in dose, 177, cm, 06/02/21 11:35:00 EDT, Height, 108, kg, 05/24/21 19:44:00 EDT, Dry Weight Start Date: 09/16/21 Stop Date: 09/11/22 Status: Ordered busPIRone 10 mg oral tablet 10 mg, 1, tablet, By Mouth, 2 times a day, # 180 tablet, Refills 3, Tot. Refills 3, Maintenance, 09/16/21 9:24:00 EST, Route to Pharmacy Electronically, [facility], 177, cm, 06/02/21 11:35:00 EDT, Height, 108, kg, 05/24/21 19:44:00 EDT... Start Date: 09/16/21 Stop Date: 09/11/22 Status: Ordered cetirizine 10 mg oral tablet 1 tablet, By Mouth, Daily, PRN NEEDED FOR ALLERGY SYMPTOMS, # 30 tablet, 5 Refills, [facility], 177, cm, 09/16/21 10:06:00 EST, Height, [...] (SEVERE ALLERGY), # 2 Unknown, 1 Refills, [facility], 177, cm, 06/02/21 11:35:00 EDT, Height, 108, kg, 05/24/21 19:44:00 EDT, Dry Weight Start Date: 09/08/21 Status: Ordered FLUoxetine 20 mg oral capsule 3, capsule, By Mouth, Daily, for 90 days, # 270 capsule, Refills 0, Physician Stop, Route to Pharmacy Electronically, [facility], 177, cm, 06/02/21 11:35:00 EDT, Height, [...] 06/02/21 11:36:00 EDT, Route to Pharmacy Electronically, [facility], lower dose, 177, cm, 06/02/21 11:35:00 EDT, Height, 108, kg, 05/24/21 19:44:00... Start Date: 06/02/21 Stop Date: 05/28/22 Status: Ordered Mapap Arthritis Pain 650 mg oral tablet, extended release See Instructions, TAKE 2 TABLETS BY MOUTH EVERY 8 HOURS NEEDED FOR PAIN FOR 30 DAYS, # 90 tablet, 5 Refills, Acute, [facility], 167, cm, 01/14/20 9:59:00 EDT, Height [...] 56tablet, 0 Refills, Maintenance, 09/01/21 9:49:00 EDT, [facility], Pt requests an early refill for travel, 177, cm, 06/02/21 11:35:00 ED... Start Date: 09/01/21 Status: Ordered OxyCONTIN 15 mg oral tablet, extended release See Instructions, TAKE 1 TABLET BY MOUTH EVERY 12 HOURS NEEDED FOR SEVERE PAIN FOR 28 DAYS, # 56tablet, 0 Refills, Maintenance, 09/29/21 16:27:00 EST, [facility], Pt requests an early refill for travel, 177, cm, 09/16/21 10:06:00 E... Start Date: 09/29/21 Status: Ordered Periwash Perineal cleaning solution Periwash [...] 09/16/21 9:30:00 EST, Route to Pharmacy Electronically, [facility], Partial fill upon patient request if the prescription is for a schedule... Start Date: 09/16/21 Stop Date: 02/13/22 Status: Ordered Ventolin HFA 108 mcg/inh inhalation aerosol with adapter 2 puffs, Inhalation, 4 times a day, PRN for wheezing, for 30 days, # 1 each, 5 Refills, Hard Stop 12/19/21 11:01:00 EST, 06/22/21 11:01:00 EDT, Aerosol, [facility], replaces proair, 177, cm, 06/02/21 11:35:00 EDT, Height, 108, kg, 04/30... Start Date: 06/22/21 Stop Date: 12/19/21 Status: Ordered Zofran 4 mg oral tablet 1 tablet = 4 mg, By Mouth, Every 8 hours, PRN Nausea & Vomiting, # 12 tablet, 0 Refills, Acute 06/09/22 10:43:00 EDT, 06/09/21 10:43:00 EDT, Tablet, [facility], Partial fill upon patient request if the prescription is for a schedule II... Start Date: 06/09/21 Stop Date: 06/09/22 Status: Ordered zolpidem 10 mg oral tablet 1 tablet, By Mouth, Daily at bedtime, PRN NEEDED FOR INSOMNIA, # 28 tablet, 0 Refills, Acute 11/03/21 16:27:00 EST, 09/29/21 16:26:00 EST, [facility], refill when due, 177, cm, 09/16/21 10:06:00 EST, Height, 108, kg, 05/24/21 19:44:... Start Date: 09/29/21 Stop Date: 11/03/21 Status: Ordered Problem List Condition Effective Dates [...]
--- OUTSIDE RECORDS SUMMARY | 2023-12-11 08:26 | XMS_ITS | Continuity of Care Document ---
Author Name Unknown Organization 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 [address] [place], [place] [address] Attending Physician: Demario Nassar MD Allergies, [...] (oldterm) 12 10/08/07 Give n 1Result Comment: [id number] given w/out incident 2Result Comment: [facility]: [id number] 3Result Comment: [id number] given w/out incident 4Result Comment: [08/17/2018] [facility] [id number] 5Result Comment: [08/31/2017] given w/out incident [facility]: [id number] 6Result Comment: [08/21/2014] given w/o incident...AA 7Result Comment: [07/25/2013] given w/out incident 8Admin Note: vis sheet given. 9Admin Note: historial data 10Result Comment: [id number] 11Admin Note: mass bio 12Admin Note: sanofi [...] each, 1 Refills,Maintenance, 10/19/21 14:37:00 EST, Aerosol, [facility], replaces Rx for symbicort not covered by her insurance, 2 puffs Inhalation 2... Start Date: 10/19/21 Stop Date: 04/17/22 Status: Ordered albuterol 0.083% inhalation solution 3 mL = 2.5 mg, Inhalation, Every 6 hours, PRN for wheezing, Dx: COPD J44.9, # 60 each, 2 Refills, Maintenance, 06/02/21 11:29:00 EDT, Solution, [facility], Partial fill upon patient request if the prescription is for a schedule II opio... Start Date: 06/02/21 Status: Ordered amitriptyline 100 mg oral tablet 1.5 tablet = 150 mg, By Mouth, Daily at bedtime, # 135 tablet, 3 Refills, Maintenance, 06/02/21 11:36:00 EDT, Tablet, [facility], 177, cm, 06/02/21 11:35:00 EDT, Height, 108, kg, 05/24/21 19:44:00 EDT, Dry Weight Start Date: 06/02/21 Stop Date: 05/28/22 Status: Ordered amLODIPine 10 mg oral tablet 10 mg, 1, tablet, By Mouth, Daily, for 90 days, # 90 tablet, Refills 3, Tot. Refills 3, Hard Stop 05/28/22 11:36:00 EDT, 06/02/21 11:36:00 EDT, Route to Pharmacy Electronically, [facility], 177, cm, 06/02/21 11:35:00 EDT, Height, 108,... Start Date: 06/02/21 Stop Date: 05/28/22 Status: Ordered amLODIPine 10 mg oral tablet 10 mg, 1, tablet, By Mouth, Daily, # 90 tablet, Refills 1, Tot. Refills 1, Maintenance, 05/28/22 11:36:00 EDT, Route to Pharmacy Electronically, [facility], 177, cm, 10/19/21 10:00:00EST, Height, 108, kg, 05/24/21 19:44:00 EDT, Dry We... Start Date: 05/28/22 Stop Date: 11/24/22 Status: Ordered atorvastatin 20 mg oral tablet 1 tablet = 20 mg, By Mouth, Daily, # 90 tablet, 1 Refills, Maintenance, 07/26/21 13:55:00 EDT, Tablet, [facility]., 177, cm, 06/02/21 11:35:00 EDT, [...] Refills, Maintenance, 09/16/21 9:24:00 EST, ER Tablet, [facility], increase in dose, 177, cm, 06/02/21 11:35:00 EDT, Height, 108, kg, 05/24/21 19:44:00 EDT, Dry Weight Start Date: 09/16/21 Stop Date: 09/11/22 Status: Ordered busPIRone 10 mg oral tablet 10 mg, 1, tablet, By Mouth, 2 times a day, # 180 tablet, Refills 3, Tot. Refills 3, Maintenance, 09/16/21 9:24:00 EST, Route to Pharmacy Electronically, [facility], 177, cm, 06/02/21 11:35:00 EDT, Height, 108, kg, 05/24/21 19:44:00 EDT... Start Date: 09/16/21 Stop Date: 09/11/22 Status: Ordered cetirizine 10 mg oral tablet 1 tablet, By Mouth, Daily, PRN NEEDED FOR ALLERGY SYMPTOMS, # 30 tablet, 5 Refills, [facility], 177, cm, 09/16/21 10:06:00 EST, Height, [...] (SEVERE ALLERGY), # 2 Unknown, 1 Refills, [facility], 177, cm, 06/02/21 11:35:00 EDT, Height, 108, kg, 05/24/21 19:44:00 EDT, Dry Weight Start Date: 09/08/21 Status: Ordered FLUoxetine 20 mg oral capsule 3, capsule, By Mouth, Daily, for 90 days, # 270 capsule, Refills 0, Physician Stop, Route to Pharmacy Electronically, [facility], 177, cm, 06/02/21 11:35:00 EDT, Height, [...] 06/02/21 11:36:00 EDT, Route to Pharmacy Electronically, [facility], lower dose, 177, cm, 06/02/21 11:35:00 EDT, Height, 108, kg, 05/24/21 19:44:00... Start Date: 06/02/21 Stop Date: 05/28/22 Status: Ordered Mapap Arthritis Pain 650 mg oral tablet, extended release 2 tablet, By Mouth, Every 8 hours, PRN NEEDED FOR PAIN FOR, for 30 days, # 90 tablet, 2 Refills,Physician Stop, [facility], 177, cm, 10/19/21 10:00:00 EST, Height, 108, kg, 05/24/21 19:44:00 EDT, Dry Weight Start Date: 10/27/21 Stop Date: 11/26/21 Status: Ordered nebulizer nebulizer, See Instructions, # 1 kit, Refills 0, Tot. Refills 0, Maintenance, use as directed for shortness of breath Dx: COPD, 06/02/21 11:28:00 EDT, Supply Start Date: 06/02/21 Status: Ordered OxyCONTIN 15 mg oral tablet, extended release See Instructions, TAKE 1 TABLET BY MOUTH EVERY 12 HOURS NEEDED FOR SEVERE PAIN FOR 28 DAYS, # 56tablet, 0 Refills, Maintenance, 11/23/21 11:01:00 EST, [facility], Pt requests an early refill for travel, 177, cm, 10/19/21 10:00:00 E... Start Date: 11/23/21 Status: Ordered Periwash Perineal cleaning solution Periwash [...] 09/16/21 9:30:00 EST, Route to Pharmacy Electronically, [facility], Partial fill upon patient request if the prescription is for a schedule... Start Date: 09/16/21 Stop Date: 02/13/22 Status: Ordered Ventolin HFA 108 mcg/inh inhalation aerosol with adapter 2 puffs, Inhalation, 4 times a day, PRN for wheezing, for 30 days, # 1 each, 5 Refills, Hard Stop 12/19/21 11:01:00 EST, 06/22/21 11:01:00 EDT, [facility], 177, cm, 06/02/21 11:35:00 EDT, Height, 108, kg, 04/30... Start Date: 06/22/21 Stop Date: 12/19/21 Status: Ordered Zofran 4 mg oral tablet 1 tablet = 4 mg, By Mouth, Every 8 hours, PRN Nausea & Vomiting, # 12 tablet, 0 Refills, Acute 06/09/22 10:43:00 EDT, 06/09/21 10:43:00 EDT, Tablet, [facility], Partial fill upon patient request if the prescription is for a schedule II... Start Date: 06/09/21 Stop Date: 06/09/22 Status: Ordered zolpidem 10 mg oral tablet 1 tablet, By Mouth, Daily at bedtime, PRN NEEDED FOR INSOMNIA, # 28 tablet, 0 Refills, Acute 12/24/21 11:01:00 EST, 11/23/21 11:01:00 EST, [facility], refill when due, 177, cm, 10/19/21 10:00:00 EST, Height, 108, kg, 05/24/21 19:44:... Start Date: 11/23/21 Stop Date: 12/24/21 Status: Ordered Problem List Condition Effective Dates [...]
--- OUTSIDE RECORDS SUMMARY | 2023-12-11 08:26 | XMS_ITS | Continuity of Care Document ---
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 [place] 03/25/23 [facility] [address], [address]th [address] [place], [place] [address] Attending Physician: Dario Benavidez Admitting Physician: AdmtrDario Referring Physician: Admtr, Ar8 Allergies, Adverse Reactions, [...] Reason: Other : not documented 2Result Comment: [id number] given w/out incident 3Result Comment: [id number] given w/out incident 4Result Comment: [facility]: 65208-941-79 5Result Comment: [id number] given w/out incident 6Result Comment: [08/17/2018] [facility] 45823-504-79 7Result Comment: [08/31/2017] given w/out incident [facility]: [id number] 8Result Comment: [08/21/2014] given w/o incident...AA 9Result Comment: [07/25/2013] given w/out incident 10Admin Note: vis sheet given. 11Admin Note: historial data 12Result Comment: [id number] 13Admin Note: mass bio 14Admin Note: sanofi [...] Gm, 1 Refills, Maintenance, 01/06/23 15:18:00 EST, [facility], 90, INHALE 2 PUFFS BY MOUTH TWO TIMES A DAY RINSE MOUTH AFTER EVERYUSE., 167, cm, 12/05/22 10:53:00 EST, Height, 114.4... Start Date: 01/06/23 Status: Ordered All Day Allergy 10 mg oral tablet 1 tablet, By Mouth, Daily, PRN NEEDED FOR ALLERGY SYMPTOMS, # 30 tablet, 6 Refills, Maintenance,11/08/22 15:08:00 EST, [facility], 177, cm, 12/21/21 8:59:00 EST, Height, 114.4, kg, 02/14/22 21:57:00 EDT, Dry Weight Start Date: 11/08/22 Status: Ordered amLODIPine 10 mg oral tablet 10 mg, 1, tablet, By Mouth, Daily, # 90 tablet, Refills 3, Tot. Refills 3, Maintenance, 11/25/22 15:31:00 EST, Route to Pharmacy Electronically, [facility], 177, cm, 12/21/21 8:59:00 EST, Height, 114.4, kg, 02/14/22 21:57:00 EDT, Dry W... Start Date: 11/25/22 Stop Date: 11/20/23 Status: Ordered atorvastatin 40 mg oral tablet 1 tablet, By Mouth, Daily, # 90 tablet, 1 Refills, Maintenance, 02/03/23 16:11:00 EDT, [facility], 167, cm, 12/05/22 10:53:00 EST, Height, [...] Refills, Maintenance, 10/21/22 12:33:00 EST, ER Tablet, [facility], increase in dose, 177, cm, 12/21/21 [...] 08/02/22 15:37:00 EDT, Route to Pharmacy Electronically, [facility], replaces spironolactone, 177, cm, 12/21/21 8:59:00 [...] (SEVERE ALLERGY), # 2 Unknown, 1 Refills, [facility], 177, cm, 06/02/21 11:35:00 EDT, Height, 108, kg, 05/24/21 19:44:00 EDT, Dry Weight Start Date: 09/08/21 Status: Ordered gabapentin 300 mg oral capsule See Instructions, TAKE 3 CAPSULES BY MOUTH IN THE MORNING, 3 CAPSULES EARLY PM AND 4 CAPSULES AT BEDTIME., # 900 capsule, Refills 3, Maintenance, 12/23/22 13:41:00 EST, Instructions Replace Required Details, [facility] to Pharm[facility], [facility] Start Date: 12/23/22 Status: Ordered gloves, large gloves, large, See Instructions, # 50 each, Refills 11, Tot. Refills 11, Maintenance, use when handling soiled linen Dx: N39.4, 03/20/20 17:02:00 EDT, Supply Start Date: 03/20/20 Status: Ordered losartan 100 mg oral tablet 1 tablet = 100 mg, By Mouth, Daily, # 90 tablet, 4 Refills, Maintenance, 03/31/22 15:03:00 EDT, Tablet, [facility], increase in dose, 177, cm, 12/21/21 8:59:00 EST, Height, 114.4, kg,02/14/22 21:57:00 EDT, Dry Weight Start Date: 03/31/22 Stop Date: 06/24/23 Status: Ordered Mapap Arthritis Pain 650 mg oral tablet, extended release 2 tablet, By Mouth, Every 8 hours, PRN NEEDED FOR PAIN, # 90 tablet, 11 Refills, Maintenance, 08/12/22 10:25:00 EDT, [facility], 177, cm, 12/21/21 8:59:00 EST, Height, [...] 56 tablet, 0 Refills, Maintenance,03/14/23 9:10:00 EDT, [facility], resent, 167, cm, 12/05/22 10:53:00 EST, [...] Maintenance, 12/15/22 14:09:00 EST, [facility] 167, cm, 12/05/22 10:53:00 EST, Height, [...] Confirmed Active FH: 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 (mom) 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
--- OUTSIDE RECORDS SUMMARY | 2023-12-11 08:26 | XMS_ITS | Continuity of Care Document ---
Author Name Unknown Organization 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 [address] [place], [place] [address] Allergies, Adverse Reactions, Alerts Substance Reaction [...] (oldterm) 15 10/08/07 Give n 1Result Comment: [id number] given w/out incident 2Early/Late Reason: Early/Late Reason: Other : not documented 3Result Comment: [id number] given w/out incident 4Result Comment: [id number] given w/out incident 5Result Comment: [facility]: [id number] 6Result Comment: [id number] given w/out incident 7Result Comment: [08/17/2018] [facility] [id number] 8Result Comment: [08/31/2017] given w/out incident [facility]: 39319-466-71 9Result Comment: [08/21/2014] given w/o incident...AA 10Result Comment: [07/25/2013] given w/out incident 11Admin Note: vis sheet given. 12Admin Note: historial data 13Result Comment: [id number] 14Admin Note: mass bio 15Admin Note: sanofi [...] tablet, 5 Refills, Maintenance, 07/28/23 13:25:00 EDT, [facility], 167, cm, 05/29/23 18:21:00 EDT, Height, 114.4, kg, 02/14/22 21:57:00 EDT, Dry Weight Start Date: 07/28/23 Status: Ordered Advair HFA 115 mcg / 21 mcg 2 puffs, Inhalation, 2 times a day, AFTER EVERY USE., # 36 Gm, 1 Refills, Maintenance, 07/28/23 13:25:00 EDT, [facility], 90, INHALE 2 PUFFS BY MOUTH TWO TIMES A DAY RINSE MOUTH AFTER EVERYUSE., 167, cm, 05/29/23 18:21:00 EDT, Height, 114.4... Start Date: 07/28/23 Status: Ordered All Day Allergy 10 mg oral tablet 1 tablet, By Mouth, Daily, PRN NEEDED FOR ALLERGY SYMPTOMS, # 30 tablet, 5 Refills, Maintenance,06/20/23 7:39:00 EDT, [facility], 167, cm, 05/29/23 18:21:00 EDT, Height, 114.4, kg, 02/14/22 21:57:00 EDT, Dry Weight Start Date: 06/20/23 Status: Ordered amLODIPine 10 mg oral tablet 10 mg, 1, tablet, By Mouth, Daily, # 90 tablet, Refills 3, Tot. Refills 3, Maintenance, 11/25/22 15:31:00 EST, Route to Pharmacy Electronically, [facility], 177, cm, 12/21/21 8:59:00 EST, Height, 114.4, kg, 02/14/22 21:57:00 EDT, Dry W... Start Date: 11/25/22 Stop Date: 11/20/23 Status: Ordered atorvastatin 40 mg oral tablet See Instructions, TAKE 1 TABLET BY MOUTH EVERY DAY, # 90 tablet, 1 Refills, Maintenance, 11/30/23 7:19:00 EST, [facility], 167, cm, 05/29/23 18:21:00 EDT, Height, [...] Unknown, 1 Refills, Maintenance, 05/12/23 12:41:00 EDT, [facility], 167, cm, 12/05/22 10:53:00 EST, Height, 114.4, kg, 02/14/22 21:57:00 EDT,... Start Date: 05/12/23 Status: Ordered gabapentin 300 mg oral capsule See Instructions, TAKE 3 CAPSULES BY MOUTH IN THE MORNING, 3 CAPSULES EARLY PM AND 4 CAPSULES AT BEDTIME., # 900 capsule, Refills 3, Maintenance, 12/23/22 13:41:00 EST, Instructions Replace Required Details, Route to Pharmacy Electronically, [facility] Start Date: 12/23/22 Status: Ordered gloves, large gloves, large, See Instructions, # 50 each, Refills 11, Tot. Refills 11, Maintenance, use when handling soiled linen Dx: N39.4, 03/20/20 17:02:00 EDT, Supply Start Date: 03/20/20 Status: Ordered hydrochlorothiazide-triamterene 25 mg-37.5 mg oral capsule 1 capsule, By Mouth, Daily, # 90 capsule, 3 Refills, Maintenance, 11/30/23 9:52:00 EST, Capsule, [facility], replaces chlorthalidone, 1 capsule By Mouth [...] 4 Refills, Maintenance, 05/29/23 18:09:00 EDT, Tablet, [facility]., increase in dose, 167, cm, 05/29/23 [...] 56 tablet, 0 Refills, Maintenance,11/30/23 7:20:00 EST, 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 Confirmed Active [...] RN Position: [facility] RN Member Role: Primary Care Nurse Name: Tri Sebastian RN Position: [facility] RN Member Role: Primary Care Nurse Name: Demario Nassar MD Position: [facility] Physician - Primary Care Member Role: PCP Address: Address: [address] [place] [address] Adult & [place] [address]- Care Team Related Persons Name: PEIFANIO STYLES Address: home [address] [place] [address] [place] [address] Name: DEUCE SEE
--- OUTSIDE RECORDS SUMMARY | 2023-12-11 08:26 | XMS_ITS | Continuity of Care Document ---
Author Name Unknown Organization 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 [address] [place], [place] [address] Allergies, Adverse Reactions, Alerts Substance [...] Reason: Other : not documented 2Result Comment: [id number] given w/out incident 3Result Comment: [id number] given w/out incident 4Result Comment: [facility]: 52287-834-93 5Result Comment: [id number] given w/out incident 6Result Comment: [08/17/2018] [facility] [id number] 7Result Comment: [08/31/2017] given w/out incident [facility]: [id number] 8Result Comment: [08/21/2014] given w/o incident...AA 9Result Comment: [07/25/2013] given w/out incident 10Admin Note: vis sheet given. 11Admin Note: historial data 12Result Comment: [id number] 13Admin Note: mass bio 14Admin Note: sanofi [...] Gm, 1 Refills, Maintenance, 01/06/23 15:18:00 EST, [facility], 90, INHALE 2 PUFFS BY MOUTH TWO TIMES A DAY RINSE MOUTH AFTER EVERYUSE., 167, cm, 12/05/22 10:53:00 EST, Height, 114.4... Start Date: 01/06/23 Status: Ordered All Day Allergy 10 mg oral tablet 1 tablet, By Mouth, Daily, PRN NEEDED FOR ALLERGY SYMPTOMS, # 30 tablet, 5 Refills, Maintenance,06/20/23 7:39:00 EDT, [facility], 167, cm, 05/29/23 18:21:00 EDT, Height, 114.4, kg, 02/14/22 21:57:00 EDT, Dry Weight Start Date: 06/20/23 Status: Ordered amLODIPine 10 mg oral tablet 10 mg, 1, tablet, By Mouth, Daily, # 90 tablet, Refills 3, Tot. Refills 3, Maintenance, 11/25/22 15:31:00 EST, Route to Pharmacy Electronically, [facility], 177, cm, 12/21/21 8:59:00 EST, Height, 114.4, kg, 02/14/22 21:57:00 EDT, Dry W... Start Date: 11/25/22 Stop Date: 11/20/23 Status: Ordered atorvastatin 40 mg oral tablet 1 tablet, By Mouth, Daily, # 90 tablet, 1 Refills, Maintenance, 02/03/23 16:11:00 EDT, [facility], 167, cm, 12/05/22 10:53:00 EST, Height, 114.4, [...] 05/29/23 18:09:00 EDT, Route to Pharmacy Electronically, [facility], replaces spironolactone, 167, cm, 05/29/23 17:54:00 EDT, [...] Unknown, 1 Refills, Maintenance, 05/12/23 12:41:00 EDT, [facility], 167, cm, 12/05/22 10:53:00 EST, Height, 114.4, kg, 02/14/22 21:57:00 EDT,... Start Date: 05/12/23 Status: Ordered gabapentin 300 mg oral capsule See Instructions, TAKE 3 CAPSULES BY MOUTH IN THE MORNING, 3 CAPSULES EARLY PM AND 4 CAPSULES AT BEDTIME., # 900 capsule, Refills 3, Maintenance, 12/23/22 13:41:00 EST, Instructions Replace Required Details, Route to Pharmacy Electronically, [facility] Start Date: 12/23/22 Status: Ordered gloves, large gloves, large, See Instructions, # 50 each, Refills 11, Tot. Refills 11, Maintenance, use when handling soiled linen Dx: N39.4, 03/20/20 17:02:00 EDT, Supply Start Date: 03/20/20 Status: Ordered losartan 100 mg oral tablet 1 tablet = 100 mg, By Mouth, Daily, # 90 tablet, 4 Refills, Maintenance, 05/29/23 18:09:00 EDT, Tablet, [facility]., increase in dose, 167, cm, 05/29/23 17:54:00 EDT, Height, 114.4, kg, 02/14/22 21:57:00 EDT, Dry Weight Start Date: 05/29/23 Stop Date: 08/21/24 Status: Ordered Mapap Arthritis Pain 650 mg oral tablet, extended release 2 tablet, By Mouth, Every 8 hours, PRN NEEDED FOR PAIN, # 90 tablet, 11 Refills, Maintenance, 08/12/22 10:25:00 EDT, [facility], 177, cm, 12/21/21 8:59:00 EST, Height, [...] 56 tablet, 0 Refills, Maintenance,07/11/23 14:09:00 EDT, [facility], resent, 167, cm, 05/29/23 18:21:00 EDT, Height, [...] Gm, 5 Refills, Maintenance, 05/03/23 18:41:00 EDT, [facility], 167, cm, 12/05/22 10:53:00 EST, Height, 114.4, [...] Confirmed Active FH: 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 (mom) Confirmed Active [facility] current use of opiate analgesic Confirmed Active [...] Team Personnel Name: Ermelinda Rice RN Position: [facility] RN Member Role: Primary Care Nurse Name: Tri Sebastian RN Position: [facility] RN Member Role: Primary Care Nurse Name: Demario Nassar MD Position: [facility] Physician - Primary Care Member Role: PCP Address: Address: [address] [place] [address] Adult [place] [address]- Care Team Related Persons Name: EPIFANIO STYLES Address: home [address] [place] [address] Name: DEUCE SEE
--- OUTSIDE RECORDS SUMMARY | 2023-12-11 08:26 | XMS_ITS | Continuity of Care Document ---
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: 17394-301-75 5Result Comment: [id number] given w/out incident 6Result Comment: [08/17/2018] [facility] [id number] 7Result Comment: [08/31/2017] given w/out incident [facility]: [id number] 8Result Comment: [08/21/2014] given w/o incident...AA 9Result Comment: [07/25/2013] given w/out incident 10Admin Note: vis sheet given. 11Admin Note: historial data 12Result Comment: [id number] 13Admin Note: mass bio 14Admin Note: sanofi [...] 11/25/22 15:31:00 EST, Route to Pharmacy Electronically, [facility], 177, cm, 12/21/21 8:59:00 EST, Height, [...] Refills, Maintenance, 10/21/22 12:33:00 EST, ER Tablet, [facility], increase in dose, 177, cm, 12/21/21 [...] 08/02/22 15:37:00 EDT, Route to Pharmacy Electronically, [facility], replaces spironolactone, 177, cm, 12/21/21 8:59:00 [...] (SEVERE ALLERGY), # 2 Unknown, 1 Refills, [facility], 177, cm, 06/02/21 11:35:00 EDT, Height, 108, kg, 05/24/21 19:44:00 EDT, Dry Weight Start Date: 09/08/21 Status: Ordered gabapentin 300 mg oral capsule See Instructions, TAKE 3 CAPSULES BY MOUTH IN THE MORNING, 3 CAPSULES EARLY PM AND 4 CAPSULES AT BEDTIME., # 900 capsule, Refills 3, Maintenance, 12/23/22 13:41:00 EST, Instructions Replace Required Details, [facility] to Pharmacy Electronically, [facility] Start Date: 12/23/22 Status: Ordered gloves, large gloves, large, See Instructions, # 50 each, Refills 11, Tot. Refills 11, Maintenance, use when handling soiled linen Dx: N39.4, 03/20/20 17:02:00 EDT, Supply Start Date: 03/20/20 Status: Ordered losartan 100 mg oral tablet 1 tablet = 100 mg, By Mouth, Daily, # 90 tablet, 4 Refills, Maintenance, 03/31/22 15:03:00 EDT, Tablet, [facility], increase in dose, 177, cm, 12/21/21 8:59:00 EST, Height, 114.4, kg,02/14/22 21:57:00 EDT, Dry Weight Start Date: 03/31/22 Stop Date: 06/24/23 Status: Ordered Mapap Arthritis Pain 650 mg oral tablet, extended release 2 tablet, By Mouth, Every 8 hours, PRN NEEDED FOR PAIN, # 90 tablet, 11 Refills, Maintenance, 08/12/22 10:25:00 EDT, [facility], 177, cm, 12/21/21 8:59:00 [...] 56 tablet, 0 Refills, Maintenance,12/20/22 17:31:00 EST, [facility], resent, 167, cm, 12/05/22 10:53:00 EST, [...] Gm, 5 Refills, Maintenance, 12/15/22 14:09:00 EST, [facility] 167, cm, 12/05/22 10:53:00 [...] Confirmed Active FH: 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 (mom) Confirmed Active alf current use of opiate analgesic Confirmed Active [...] Team Personnel Name: Ermelinda Rice RN Position: [facility] RN Member Role: Primary Care Nurse Name: Tri Sebastian RN Position: [facility] RN Member Role: Primary Care Nurse Name: Demario Nassar MD Position: [facility] Primary Care Physician Member Role: PCP Address: Address: [address] [place] [address] Adult & [place] [address]- Care Team Related Persons Name: JENSEN EPIFANIO Address: home [address] [place] [address] [place] [address] Name: DEUCE SEE
--- OUTSIDE RECORDS SUMMARY | 2023-12-11 08:26 | XMS_ITS | Continuity of Care Document ---
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 Role Phone Demario Nassar MD Primary Care Physician En[place] [facility] [place] Date(s): 11/01/23 - 12/01/23 [facility] [address] [place], [place] [address] Allergies, Adverse Reactions, Alerts Substance [...] (oldterm) 15 10/08/07 Give n 1Result Comment: [id number] given w/out incident 2Early/Late Reason: Early/Late Reason: Other : not documented 3Result Comment: [id number] given w/out incident 4Result Comment: [id number] given w/out incident 5Result Comment: [facility]: [id number] 6Result Comment: [id number] given w/out incident 7Result Comment: [08/17/2018] [facility] [id number] 8Result Comment: [08/31/2017] given w/out incident [facility]: [id number] 9Result Comment: [08/21/2014] given w/o incident...AA 10Result Comment: [07/25/2013] given w/out incident 11Admin Note: vis sheet given. 12Admin Note: historial data 13Result Comment: [id number] 14Admin Note: mass bio 15Admin Note: sanofi [...] tablet, 5 Refills, Maintenance, 07/28/23 13:25:00 EDT, [facility], 167, cm, 05/29/23 18:21:00 EDT, Height, 114.4, kg, 02/14/22 21:57:00 EDT, Dry Weight Start Date: 07/28/23 Status: Ordered Advair HFA 115 mcg / 21 mcg 2 puffs, Inhalation, 2 times a day, AFTER EVERY USE., # 36 Gm, 1 Refills, Maintenance, 07/28/23 13:25:00 EDT, [facility], 90, INHALE 2 PUFFS BY MOUTH TWO TIMES A DAY RINSE MOUTH AFTER EVERYUSE., 167, cm, 05/29/23 18:21:00 EDT, Height, 114.4... Start Date: 07/28/23 Status: Ordered All Day Allergy 10 mg oral tablet 1 tablet, By Mouth, Daily, PRN NEEDED FOR ALLERGY SYMPTOMS, # 30 tablet, 5 Refills, Maintenance,06/20/23 7:39:00 EDT, [facility], 167, cm, 05/29/23 18:21:00 EDT, Height, 114.4, kg, 02/14/22 21:57:00 EDT, Dry Weight Start Date: 06/20/23 Status: Ordered amLODIPine 10 mg oral tablet 10 mg, 1, tablet, By Mouth, Daily, # 90 tablet, Refills 3, Tot. Refills 3, Maintenance, 11/25/22 15:31:00 EST, Route to Pharmacy Electronically, [facility], 177, cm, 12/21/21 8:59:00 EST, Height, 114.4, kg, 02/14/22 21:57:00 EDT, Dry W... Start Date: 11/25/22 Stop Date: 11/20/23 Status: Ordered atorvastatin 40 mg oral tablet See Instructions, TAKE 1 TABLET BY MOUTH EVERY DAY, # 90 tablet, 1 Refills, Maintenance, 11/30/23 7:19:00 EST, [facility], 167, cm, 05/29/23 18:21:00 EDT, [...] Unknown, 1 Refills, Maintenance, 05/12/23 12:41:00 EDT, [facility], 167, cm, 12/05/22 10:53:00 EST, Height, 114.4, kg, 04/18/22 21:57:00 EDT,... Start Date: 05/12/23 Status: Ordered gabapentin 300 mg oral capsule See Instructions, TAKE 3 CAPSULES BY MOUTH IN THE MORNING, 3 CAPSULES EARLY PM AND 4 CAPSULES AT BEDTIME., # 900 capsule, Refills 3, Maintenance, 12/23/22 13:41:00 EST, Instructions Replace Required Details, [facility] Pharm[facility], [facility] Start Date: 12/23/22 Status: Ordered gloves, large gloves, large, See Instructions, # 50 each, Refills 11, Tot. Refills 11, Maintenance, use when handling soiled linen Dx: N39.4, 03/20/20 17:02:00 EDT, Supply Start Date: 03/20/20 Status: Ordered hydrochlorothiazide-triamterene 25 mg-37.5 mg oral capsule 1 capsule, By Mouth, Daily, # 90 capsule, 3 Refills, Maintenance, 11/30/23 9:52:00 EST, Capsule, [facility], replaces chlorthalidone, 1 capsule By Mouth [...] 4 Refills, Maintenance, 05/29/23 18:09:00 EDT, Tablet, [facility]., increase in dose, 167, cm, 05/29/23 17:54:00 [...] 56 tablet, 0 Refills, Maintenance,11/30/23 7:20:00 EST, [facility], 167, cm, 05/29/23 18:21:00 EDT, Height, [...] Gm, 5 Refills, Maintenance, 11/22/23 9:48:00 EST, [facility], 167, cm, 05/29/23 18:21:00 EDT, Height, [...] Team Personnel Name: Ermelinda Rice RN Position: [facility] RN Member Role: Primary Care Nurse Name: Tri Sebastian RN Position: S RN Member Role: Primary Care Nurse Name: Demario Nassar MD Position: [facility] Physician - Primary Care Member Role: PCP Address: Address: [address] [place] [address] Adult & [place] [address]- Care Team Related Persons Name: EPIFANIO STYLES Address: [address] [place] [address] Name: DEUCE SEE
--- OUTSIDE RECORDS SUMMARY | 2023-12-11 08:26 | XMS_ITS | Continuity of Care Document ---
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 Role Phone Demario Nassar MD Primary Care Physician Encounter [facility] Date(s): 04/04/23 - 05/04/23 [facility] [address], [place] [address] Allergies, Adverse Reactions, Alerts Substance [...] Inactivated 11/19/19 Given Hepatitis A Adult Vaccine 1/21/20 Given tetanus-diphtheria toxoids (Td) 04/23/19 Given tetanus-diphtheria toxoids (Td) 11 11/27/96 Given pneumococcal 23-valent vaccine 12 01/22/19 Given diphtheria-tetanus toxoids (DT) 13 03/19/09 Given Influenza Virus Vaccine (oldterm) 14 10/08/07 Give n 1Early/Late Reason: Early/Late Reason: Other : not documented 2Result Comment: [id number] given w/out incident 3Result Comment: [id number] given w/out incident 4Result Comment: [facility]: [id number] 5Result Comment: [id number] given w/out incident 6Result Comment: [08/17/2018] [facility] [id number] 7Result Comment: [08/31/2017] given w/out incident [facility]: [phone] 8Result Comment: [08/21/2014] given w/o incident...AA 9Result Comment: [07/25/2013] given w/out incident 10Admin Note: vis sheet given. 11Admin Note: historial data 12Result Comment: [id number] 13Admin Note: mass bio 14Admin Note: sanofi [...] Gm, 1 Refills, Maintenance, 01/06/23 15:18:00 EST, [facility], 90, INHALE 2 PUFFS BY [...] 11/25/22 15:31:00 EST, Route to Pharmacy Electronically, [facility], 177, cm, 12/21/21 8:59:00 EST, Height, 114.4, kg, 02/14/22 21:57:00 EDT, Dry W... Start Date: 11/25/22 Stop Date: 11/20/23 Status: Ordered atorvastatin 40 mg oral tablet 1 tablet, By Mouth, Daily, # 90 tablet, 1 Refills, Maintenance, 02/03/23 16:11:00 EDT, [facility], 167, cm, 12/05/22 10:53:00 EST, Height, [...] Refills, Maintenance, 10/21/22 12:33:00 EST, ER Tablet, [facility], increase in dose, 177, cm, 12/21/21 [...] 08/02/22 15:37:00 EDT, Route to Pharmacy Electronically, [facility], replaces spironolactone, 177, cm, 12/21/21 8:59:00 [...] (SEVERE ALLERGY), # 2 Unknown, 1 Refills, [facility], 177, cm, 06/02/21 11:35:00 EDT, Height, 108, kg, 05/24/21 19:44:00 EDT, Dry Weight Start Date: 09/08/21 Status: Ordered gabapentin 300 mg oral capsule See Instructions, TAKE 3 CAPSULES BY MOUTH IN THE MORNING, 3 CAPSULES EARLY PM AND 4 CAPSULES AT BEDTIME., # 900 capsule, Refills 3, Maintenance, 12/23/22 13:41:00 EST, Instructions Replace Required Details, [facility], [facility] Start Date: 12/23/22 Status: Ordered gloves, large gloves, large, See Instructions, # 50 each, Refills 11, Tot. Refills 11, Maintenance, use when handling soiled linen Dx: N39.4, 03/20/20 17:02:00 EDT, Supply Start Date: 03/20/20 Status: Ordered losartan 100 mg oral tablet 1 tablet = 100 mg, By Mouth, Daily, # 90 tablet, 4 Refills, Maintenance, 03/31/22 15:03:00 EDT, Tablet, [facility]., increase in dose, 177, cm, 12/21/21 8:59:00 EST, Height, 114.4, kg,02/14/22 21:57:00 EDT, Dry Weight Start Date: 03/31/22 Stop Date: 06/24/23 Status: Ordered Mapap Arthritis Pain 650 mg oral tablet, extended release 2 tablet, By Mouth, Every 8 hours, PRN NEEDED FOR PAIN, # 90 tablet, 11 Refills, Maintenance, 08/12/22 10:25:00 [facility] 177, cm, 12/21/21 8:59:00 EST, Height, 114.4, [...] 56 tablet, 0 Refills, Maintenance,04/11/23 10:59:00 EDT, [facility], resent, 167, cm, 12/05/22 10:53:00 EST, [...] Gm, 5 Refills, Maintenance, 05/03/23 18:41:00 EDT, [facility], [facility], cm, 12/05/22 10:53:00 EST, Height, [...] Confirmed Active FH: 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 (mom) Confirmed Active snf current use of opiate analgesic Confirmed Active [...] Team Personnel Name: Ermelinda Rice RN Position: [facility] RN Member Role: Primary Care Nurse Name: Tri Sebastian RN Position: [facility] RN Member Role: Primary Care Nurse Name: Demario Nassar MD Position: [facility] Physician - Primary Care Member Role: PCP Address: Address: [address] [place] [address] Adult & Pediatric Medicine [address] Care Team Related Persons Name: EPIFANIO STYLES Address: [address] [address] Name: DEUCE SEE
--- OUTSIDE RECORDS SUMMARY | 2023-12-11 08:26 | XMS_ITS | Continuity of Care Document ---
Author Name Unknown Organization 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 [address] [place], [place] [address] Allergies, Adverse Reactions, Alerts [...] 10/08/07 Give n 1Result Comment: [facility]: [id number] 2Result Comment: [id number] given w/out incident 3Result Comment: [08/17/2018] [facility] [phone] 4Result Comment: [08/31/2017] given w/out incident [facility]: [phone] 5Result Comment: [08/21/2014] given w/o incident...AA 6Result Comment: [07/25/2013] given w/out incident 7Admin Note: vis sheet given. 8Admin Note: historial data 9Result Comment: [id number] 10Admin Note: mass bio 11Admin Note: sanofi [...] each, 3 Refills,Maintenance, 04/16/20 10:16:00 EDT, Aerosol, [facility], replaces Rx for symbicort not covered by her insurance, 2 puffs Inhalation 2... Start Date: 04/16/20 Stop Date: 04/11/21 Status: Ordered amitriptyline 100 mg oral tablet 1.5 tablet = 150 mg, By Mouth, Daily at bedtime, # 135 tablet, 3 Refills, Maintenance, 04/16/20 10:16:00 EDT, Tablet, [facility]., 167, cm, 01/14/20 9:59:00 EDT, Height Start Date: 04/16/20 Stop Date: 04/11/21 Status: Ordered amLODIPine 10 mg oral tablet 10 mg, 1, tablet, By Mouth, Daily, # 90 tablet, Refills 3, Tot. Refills 3, Maintenance, 04/16/20 10:16:00 EDT, Route to Pharmacy Electronically, [facility], 167, cm, 01/14/20 9:59:00 EDT, [...] 3 Refills, Maintenance, 05/11/20 9:45:00 EDT, Tablet, [facility]., 167, cm, 01/14/20 9:59:00 EDT, Height [...] Refills, Maintenance, 09/29/20 14:40:00 EST, ER Tablet, [facility], increase in dose, 167, cm, 01/14/20 9:59:00 EDT, Height Start Date: 09/29/20 Stop Date: 09/24/21 Status: Ordered busPIRone 10 mg oral tablet 10 mg, 1, tablet, By Mouth, 2 times a day, # 180 tablet, Refills 3, Tot. Refills 3, Maintenance, 07/07/20 12:31:00 EDT, Route to Pharmacy Electronically, [facility], 167, cm, 209:59:00 EDT, Height Start Date: 07/07/20 Stop Date: 07/02/21 Status: Ordered cetirizine 10 mg oral tablet 1 tablet = 10 mg, By Mouth, Daily, PRN for allergy symptoms, # 30 tablet, 8 Refills, Maintenance, 09/01/20 17:26:00 EST, Tablet, [facility], 167, cm, 01/14/20 9:59:00 EDT, Height Start Date: 09/01/20 Stop Date: 05/29/21 Status: Ordered chlorthalidone 25 mg oral tablet 25 mg, 1, tablet, By Mouth, Daily, # 90 tablet, Refills 3, Tot. Refills 3, Maintenance, 04/16/20 10:15:00 EDT, Route to Pharmacy Electronically, [facility], replaces hydrochlorothiazide, 167, cm, 01/14/20 [...] kit, 1 Refills, Soft Stop,04/16/20 10:16:00 EDT, [facility], 167, cm, 01/14/20 9:59:00 EDT, Height Start Date: 04/16/20 Status: Ordered FLUoxetine 20 mg oral capsule 3, capsule, By Mouth, Daily, # 270 capsule, Refills 3, Tot. Refills 0, Maintenance, 02/21/20 15:09:00 EDT, Route to Pharmacy Electronically, [facility], 167, cm, 01/14/20 9:59:00 EDT, [...] 01/14/20 10:17:00 EDT, Route to Pharmacy Electronically, [facility], lower dose, 167, cm, 01/14/20 9:59:00 EDT, Height Start Date: 01/14/20 Stop Date: 01/08/21 Status: Ordered Mapap Arthritis Pain 650 mg oral tablet, extended release See Instructions, TAKE 2 TABLETS BY MOUTH EVERY 8 HOURS NEEDED FOR PAIN FOR 30 DAYS, # 90 tablet, 5 Refills, Acute, [facility], 167, cm, 01/14/20 9:59:00 EDT, Height Start Date: 04/15/21 Status: Ordered Meclizine By Mouth, 3 times a day, 0 Refills, Maintenance, 12/14/18 15:25:26 EST Start Date: 12/14/18 Status: Ordered OxyCONTIN 15 mg oral tablet, extended release See Instructions, TAKE 1 TABLET BY MOUTH EVERY 12 HOURS NEEDED FOR SEVERE PAIN FOR 28 DAYS, # 56tablet, 0 Refills, Maintenance, 04/15/21 16:57:00 EDT, [facility], 167, cm, 01/14/20 9:59:00 EDT, Height Start Date: 04/15/21 Status: Ordered Periwash Perineal cleaning solution Periwash [...] 08/02/21 17:29:00 EDT, 02/03/21 17:29:00 EDT, [facility]air, 167, cm, 01/14/20 9:59:00 EDT, Height Start Date: 02/03/21 Stop Date: 08/02/21 Status: Ordered zolpidem 10 mg oral tablet 1 tablet = 10 mg, By Mouth, Daily at bedtime, PRN as needed for insomnia, # 28 tablet, 0 Refills, Soft Stop, 05/07/21 12:55:00 EDT, [facility], cm, 01/14/20 9:59:00 [...] mellitus (aunt)(Confirmed) Active FH: 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 (mom)(Confirmed) Active prison current use 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
--- OUTSIDE RECORDS SUMMARY | 2023-12-11 08:26 | XMS_ITS | Continuity of Care Document ---
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: [id number] 5Result Comment: [08/21/2014] given w/o incident...AA 6Result Comment: [07/25/2013] given w/out incident 7Admin Note: vis sheet given. 8Admin Note: historial data 9Result Comment: [id number] 10Admin Note: mass bio 11Admin Note: sanofi [...] each, 3 Refills,Maintenance, 05/28/21 18:23:00 EDT, Aerosol, [id number], replaces Rx for symbicort not covered by her insurance, 2 puffs Inhalation 2 times a... Start Date: 05/28/21 Stop Date: 05/23/22 Status: Ordered albuterol 0.083% inhalation solution 3 mL = 2.5 mg, Inhalation, Every 6 hours, PRN for wheezing, Dx: COPD J44.9, # 60 each, 2 Refills, Maintenance, 06/02/21 11:29:00 EDT, [facility] upon patient request if the prescription is for a schedule II opio... Start Date: 06/02/21 Status: Ordered amitriptyline 100 mg oral tablet 1.5 tablet = 150 mg, By Mouth, Daily at bedtime, # 135 tablet, 3 Refills, Maintenance, 06/02/21 11:36:00 EDT, Tablet, [facility], 177, cm, 06/02/21 11:35:00 EDT, Height, 108, kg, 05/24/21 19:44:00 EDT, Dry Weight Start Date: 06/02/21 Stop Date: 05/28/22 Status: Ordered amLODIPine 10 mg oral tablet 10 mg, 1, tablet, By Mouth, Daily, # 90 tablet, Refills 3, Tot. Refills 3, Maintenance, 06/02/21 11:36:00 EDT, Route to Pharmacy Electronically, [facility], 177, cm, 06/02/21 11:35:00EDT, Height, 108, kg, 05/24/21 19:44:00 EDT, Dry We... Start Date: 06/02/21 Stop Date: 05/28/22 Status: Ordered atorvastatin 20 mg oral tablet 1 tablet = 20 mg, By Mouth, Daily, # 90 tablet, 3 Refills, Maintenance, 05/11/20 9:45:00 EDT, Tablet, [facility], 167, cm, 01/14/20 9:59:00 EDT, Height [...] Refills, Maintenance, 09/29/20 14:40:00 EST, ER Tablet, [facility], increase in dose, 167, cm, 01/14/20 9:59:00 EDT, Height Start Date: 09/29/20 Stop Date: 09/24/21 Status: Ordered busPIRone 10 mg oral tablet 10 mg, 1, tablet, By Mouth, 2 times a day, # 180 tablet, Refills 3, Tot. Refills 3, Maintenance, 07/07/20 12:31:00 EDT, Route to Pharmacy Electronically, [facility], 167, cm, 209:59:00 EDT, Height Start Date: 07/07/20 Stop Date: 07/02/21 Status: Ordered cetirizine 10 mg oral tablet 1 tablet = 10 mg, By Mouth, Daily, PRN for allergy symptoms, # 30 tablet, 2 Refills, Maintenance, 06/01/21 14:45:00 EDT, Tablet, [facility], 177, cm, 05/26/21 12:02:00 EDT, Height, [...] kit, 1 Refills, Soft Stop,04/16/20 10:16:00 EDT, [facility], 167, cm, 01/14/20 9:59:00 EDT, Height Start Date: 04/16/20 Status: Ordered FLUoxetine 20 mg oral capsule 3, capsule, By Mouth, Daily, # 270 capsule, Refills 0, Tot. Refills 0, Maintenance, 06/01/21 17:20:00 EDT, Route to Pharmacy Electronically, [facility], 177, cm, 05/26/21 12:02:00 EDT, Height, [...] 06/02/21 11:36:00 EDT, Route to Pharmacy Electronically, [facility], lower dose, 177, cm, 06/02/21 11:35:00 EDT, Height, 108, kg, 05/24/21 19:44:00... Start Date: 06/02/21 Stop Date: 05/28/22 Status: Ordered Mapap Arthritis Pain 650 mg oral tablet, extended release See Instructions, TAKE 2 TABLETS BY MOUTH EVERY 8 HOURS NEEDED FOR PAIN FOR 30 DAYS, # 90 tablet, 5 Refills, Acute, [facility], [facility], cm, 01/14/20 9:59:00 EDT, Height [...] 56tablet, 0 Refills, Maintenance, 07/08/21 8:40:00 EDT, [facility], 177, cm, 06/02/2111:35:00 EDT, Height, 108, [...] 12/19/21 11:01:00 EST, 06/22/21 11:01:00 EDT, Aerosol, [facility]., replaces proair, 177, cm, 06/02/21 11:35:00 EDT, Height, 108, kg, 04/30... Start Date: 06/22/21 Stop Date: 12/19/21 Status: Ordered Zofran 4 mg oral tablet 1 tablet = 4 mg, By Mouth, Every 8 hours, PRN Nausea & Vomiting, # 12 tablet, 0 Refills, Acute 06/09/22 10:43:00 EDT, 06/09/21 10:43:00 EDT, Tablet, [facility], Partial fill upon patient request if the prescription is for a schedule II... Start Date: 06/09/21 Stop Date: 06/09/22 Status: Ordered zolpidem 10 mg oral tablet 1 tablet, By Mouth, Daily at bedtime, PRN NEEDED FOR INSOMNIA, # 28 tablet, 0 Refills, Acute 08/05/21 13:21:00 EDT, 07/08/21 13:21:00 EDT, [facility]., 177, cm, 06/02/21 11:35:00 EDT, Height, 108, [...] mellitus (aunt)(Confirmed) Active FH: 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 (mom)(Confirmed) Active halfway current use 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
--- OUTSIDE RECORDS SUMMARY | 2023-12-11 08:26 | XMS_ITS | Continuity of Care Document ---
Author Name Unknown Organization 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 [address] [place] [address]- [facility] Allergies, Adverse Reactions, Alerts Substance Reaction [...] (oldterm) 10 10/08/07 Give n 1Result Comment: [id number] given w/out incident 2Result Comment: [08/17/2018] [facility] [id number] 3Result Comment: [08/31/2017] given w/out incident [facility]: [id number] 4Result Comment: [08/21/2014] given w/o incident...AA 5Result Comment: [07/25/2013] given w/out incident 6Admin Note: vis sheet given. 7Admin Note: historial data 8Result Comment: [id number] 9Admin Note: mass bio 10Admin Note: sanofi Medications acetaminophen 650 mg oral tablet, extended release 2 tablet = 1,300 mg, By Mouth, Every 8 hours, PRN as needed for pain, for 30 days, # 90 tablet, 5 Refills, Acute 10/18/20 17:11:00 EST, 04/21/20 17:11:00 EDT, ER Tablet, [facility] 167, cm, 01/14/20 9:59:00 EDT, Height Start Date: 04/21/20 Stop Date: 10/18/20 Status: Ordered Advair HFA 115 mcg / 21 mcg 2 puffs, Inhalation, 2 times a day, Dx: COPD rinse mouth and throat after use, # 3 each, 3 Refills,Maintenance, 04/16/20 10:16:00 EDT, Aerosol, [facility]., replaces Rx for symbicort not covered by her insurance, 2 puffs Inhalation 2... Start Date: 04/16/20 Stop Date: 04/11/21 Status: Ordered amitriptyline 100 mg oral tablet 1.5 tablet = 150 mg, By Mouth, Daily at bedtime, # 135 tablet, 3 Refills, Maintenance, 04/16/20 10:16:00 EDT, Tablet, [facility] 167, cm, 01/14/20 9:59:00 EDT, Height Start Date: 04/16/20 Stop Date: 04/11/21 Status: Ordered amLODIPine 10 mg oral tablet 10 mg, 1, tablet, By Mouth, Daily, # 90 tablet, Refills 3, Tot. Refills 3, Maintenance, 04/16/20 10:16:00 EDT, Route to Pharmacy Electronically, [facility] 167, cm, 01/14/20 9:59:00 EDT, [...] 3 Refills, Maintenance, 05/11/20 9:45:00 EDT, Tablet, [facility], 167, cm, 01/14/20 9:59:00 EDT, Height [...] Route to Pharmacy Electronically, [facility], 167, cm, 209:59:00 EDT, Height Start Date: 04/16/20 Stop Date: 04/11/21 Status: Ordered chlorthalidone 25 mg oral tablet 25 mg, 1, tablet, By Mouth, Daily, # 90 tablet, Refills 3, Tot. Refills 3, Maintenance, 04/16/20 10:15:00 EDT, Route to Pharmacy Electronically, [facility], replaces hydrochlorothiazide, 167, cm, 01/14/20 9:59:00 [...] kit, 1 Refills, Soft Stop,04/16/20 10:16:00 EDT, [facility], 167, cm, 01/14/20 9:59:00 EDT, Height Start Date: 04/16/20 Status: Ordered FLUoxetine 20 mg oral capsule 3, capsule, By Mouth, Daily, # 270 capsule, Refills 3, Tot. Refills 0, Maintenance, 02/21/20 15:09:00 EDT, Route to Pharmacy Electronically, [facility], 167, cm, 01/14/20 9:59:00 EDT, [...] 01/14/20 10:17:00 EDT, Route to Pharmacy Electronically, [facility], lower dose, 167, cm, 01/14/20 9:59:00 EDT, Height Start Date: 01/14/20 Stop Date: 01/08/21 Status: Ordered Meclizine By Mouth, 3 times a day, 0 Refills, Maintenance, 12/14/18 15:25:26 EST Start Date: 12/14/18 Status: Ordered nystatin topical 192755 u/gm powder See Instructions, APPLY TOPICALLY TO AFFECTED AREA TWO TIMES A DAY FOR 14 DAYS, # 30 Gm, 0 Refills,Acute, [facility], 14, APPLY TOPICALLY TO AFFECTED [...] 8:56:00 EDT, 06/09/20 8:56:00 EDT, ER Tablet, [facility]... Start Date: 06/09/20 Stop Date: 07/07/20 [...] Refills, Soft Stop, 01/14/20 10:16:00 EDT, Aerosol, [facility] replaces proair, 167, cm, 01/14/20 9:59:00 EDT, Height Start Date: 01/14/20 Stop Date: 07/12/20 Status: Ordered zolpidem 10 mg oral tablet 1 tablet = 10 mg, By Mouth, Daily at bedtime, PRN as needed for insomnia, # 28 tablet, 0 Refills, Soft Stop, 06/23/20 16:30:00 EDT, [facility] 167, cm, 01/14/20 9:59:00 EDT, Height Start Date: 06/23/20 Stop Date: 07/21/20 Status: Ordered Problem List Condition Effective Dates [...]
--- OUTSIDE RECORDS SUMMARY | 2023-12-11 08:26 | XMS_ITS | Continuity of Care Document ---
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 Role Phone Demario Nassar MD Primary Care Physician Encounter [facility] Date(s): 07/08/21 - 08/07/21 [facility] [address], [place] [address] Allergies, Adverse Reactions, Alerts Substance [...] 11 10/08/07 Give n 1Result Comment: [facility][NOTE 3]: [id number] 2Result Comment: [id number] given w/out incident 3Result Comment: [08/17/2018] [facility][NOTE 3] [id number] 4Result Comment: [08/31/2017] given w/out incident [facility]: [id number] 5Result Comment: [08/21/2014] given w/o incident...AA 6Result Comment: [07/25/2013] given w/out incident 7Admin Note: vis sheet given. 8Admin Note: historial data 9Result Comment: [id number] 10Admin Note: mass bio 11Admin Note: sanofi [...] each, 3 Refills,Maintenance, 05/28/21 18:23:00 EDT, Aerosol, [facility]/pharmacy #[id number], replaces Rx for symbicort not covered by her insurance, 2 puffs Inhalation 2 times a... Start Date: 05/28/21 Stop Date: 05/23/22 Status: Ordered albuterol 0.083% inhalation solution 3 mL = 2.5 mg, Inhalation, Every 6 hours, PRN for wheezing, Dx: COPD J44.9, # 60 each, 2 Refills, Maintenance, 06/02/21 11:29:00 EDT, [facility] upon patient request if the prescription is for a schedule II opio... Start Date: 06/02/21 Status: Ordered amitriptyline 100 mg oral tablet 1.5 tablet = 150 mg, By Mouth, Daily at bedtime, # 135 tablet, 3 Refills, Maintenance, 06/02/21 11:36:00 EDT, Tablet, [facility], 177, cm, 06/02/21 11:35:00 EDT, Height, 108, kg, 05/24/21 19:44:00 EDT, Dry Weight Start Date: 06/02/21 Stop Date: 05/28/22 Status: Ordered amLODIPine 10 mg oral tablet 10 mg, 1, tablet, By Mouth, Daily, # 90 tablet, Refills 3, Tot. Refills 3, Maintenance, 06/02/21 11:36:00 EDT, Route to Pharmacy Electronically, [facility], 177, cm, 06/02/21 11:35:00EDT, Height, 108, kg, 05/24/21 19:44:00 EDT, Dry We... Start Date: 06/02/21 Stop Date: 05/28/22 Status: Ordered atorvastatin 20 mg oral tablet 1 tablet = 20 mg, By Mouth, Daily, # 90 tablet, 1 Refills, Maintenance, 07/26/21 13:55:00 EDT, Tablet, [facility], 177, cm, 06/02/21 11:35:00 EDT, Height, [...] Refills, Maintenance, 09/29/20 14:40:00 EST, ER Tablet, [facility], increase in dose, 167, cm, 01/14/20 9:59:00 EDT, Height Start Date: 09/29/20 Stop Date: 09/24/21 Status: Ordered busPIRone 10 mg oral tablet 10 mg, 1, tablet, By Mouth, 2 times a day, # 180 tablet, Refills 3, Tot. Refills 3, Maintenance, 07/07/20 12:31:00 EDT, Route to Pharmacy Electronically, [facility], 167, cm, 209:59:00 EDT, Height Start Date: 07/07/20 Stop Date: 07/02/21 Status: Ordered cetirizine 10 mg oral tablet 1 tablet = 10 mg, By Mouth, Daily, PRN for allergy symptoms, # 30 tablet, 2 Refills, Maintenance, 06/01/21 14:45:00 EDT, Tablet, [facility], 177, cm, 05/26/21 12:02:00 EDT, Height, [...] kit, 1 Refills, Soft Stop,04/16/20 10:16:00 EDT, [facility], 167, cm, 01/14/20 9:59:00 EDT, Height Start Date: 04/16/20 Status: Ordered FLUoxetine 20 mg oral capsule 3, capsule, By Mouth, Daily, # 270 capsule, Refills 0, Tot. Refills 0, Maintenance, 06/01/21 17:20:00 EDT, Route to Pharmacy Electronically, [facility], 177, cm, 05/26/21 12:02:00 EDT, [...] 06/02/21 11:36:00 EDT, Route to Pharmacy Electronically, [facility], lower dose, 177, cm, 06/02/21 11:35:00 EDT, Height, 108, kg, 05/24/21 19:44:00... Start Date: 06/02/21 Stop Date: 05/28/22 Status: Ordered Mapap Arthritis Pain 650 mg oral tablet, extended release See Instructions, TAKE 2 TABLETS BY MOUTH EVERY 8 HOURS NEEDED FOR PAIN FOR 30 DAYS, # 90 tablet, 5 Refills, [facility], [facility], cm, 01/14/20 9:59:00 EDT, Height [...] 56tablet, 0 Refills, Maintenance, 08/02/21 15:57:00 EDT, [facility], Pt requests an early refill for [...] 12/19/21 11:01:00 EST, 06/22/21 11:01:00 EDT, Aerosol, [facility], replaces proair, 177, cm, 06/02/21 11:35:00 EDT, Height, 108, kg, 2... Start Date: 06/22/21 Stop Date: 12/19/21 Status: Ordered Zofran 4 mg oral tablet 1 tablet = 4 mg, By Mouth, Every 8 hours, PRN Nausea & Vomiting, # 12 tablet, 0 Refills, Acute 06/09/22 10:43:00 EDT, 06/09/21 10:43:00 EDT, Tablet, [facility], Partial fill upon patient request if the prescription is for a schedule II... Start Date: 06/09/21 Stop Date: 06/09/22 Status: Ordered zolpidem 10 mg oral tablet 1 tablet, By Mouth, Daily at bedtime, PRN NEEDED FOR INSOMNIA, # 28 tablet, 0 Refills, Acute 08/30/21 15:58:00 EDT, 08/02/21 15:57:00 EDT, [facility], Pt requests an early refill for [...] mellitus (aunt)(Confirmed) Active FH: 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 (mom)(Confirmed) Active retirement current use 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
--- OUTSIDE RECORDS SUMMARY | 2023-12-11 08:27 | XMS_ITS | Continuity of Care Document ---
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 Role Phone eCsario SCHULER, Demario Primary Care Physician Encounter [facility] Date(s): 08/02/22 - 08/09/22 [facility] [address] [place], [place] [address] Attending Physician: Demario Nassar MD Allergies, [...] (oldterm) 12 10/08/07 Give n 1Result Comment: [id number] given w/out incident 2Result Comment: [facility]: [id number] 3Result Comment: [id number] given w/out incident 4Result Comment: [08/17/2018] [facility] [id number] 5Result Comment: [08/31/2017] given w/out incident [facility]: [id number] 6Result Comment: [08/21/2014] given w/o incident...AA 7Result Comment: [07/25/2013] given w/out incident 8Admin Note: vis sheet given. 9Admin Note: historial data 10Result Comment: [id number] 11Admin Note: mass bio 12Admin Note: sanofi [...] EVERY USE., # 36 Gm, 3 Refills, [facility], [facility], INHALE 2 PUFFS BY MOUTH TWO TIMES A DAY RINSE MOUTH AFTER EVERY USE., 177, cm, 10/19/21 10:00:00 EST, Height, 108, kg... Start Date: 12/21/21 Status: Ordered amitriptyline 100 mg oral tablet 0.5 tablet = 50 mg, By Mouth, Daily at bedtime, # 45 tablet, 3 Refills, Maintenance, 06/02/21 11:36:00 EDT, Tablet, [facility]., 177, cm, 06/02/21 11:35:00 EDT, Height, 108, kg, 05/24/21 19:44:00 EDT, Dry Weight Start Date: 06/02/21 Stop Date: 05/28/22 Status: Ordered amLODIPine 10 mg oral tablet 10 mg, 1, tablet, By Mouth, Daily, # 90 tablet, Refills 1, Tot. Refills 1, Maintenance, 05/28/22 11:36:00 EDT, Route to Pharmacy Electronically, [facility], 177, cm, 10/19/21 10:00:00EST, Height, 108, kg, 05/24/21 19:44:00 EDT, Dry We... Start Date: 05/28/22 Stop Date: 11/24/22 Status: Ordered amLODIPine 10 mg oral tablet See Instructions, TAKE 1 TABLET BY MOUTH DAILY, # 90 tablet, 3 Refills, [facility], 177, cm, 12/21/21 8:59:00 EST, Height, [...] Refills, Maintenance, 09/16/21 9:24:00 EST, ER Tablet, [facility]., increase in dose, 177, cm, 06/02/21 11:35:00 EDT, Height, 108, kg, 05/24/21 19:44:00 EDT, Dry Weight Start Date: 09/16/21 Stop Date: 09/11/22 Status: Ordered busPIRone 10 mg oral tablet 15 mg, 1.5, tablet, By Mouth, 2 times a day, # 270 tablet, Refills 3, Tot. Refills 3, Maintenance, 09/16/21 9:24:00 EST, Route to Pharmacy Electronically, [facility], 177, cm, 06/02/21 11:35:00 EDT, Height, 108, kg, 05/24/21 19:44:00 E... Start Date: 09/16/21 Stop Date: 09/11/22 Status: Ordered cetirizine 10 mg oral tablet 1 tablet, By Mouth, Daily, PRN NEEDED FOR ALLERGY SYMPTOMS, # 30 tablet, 5 Refills, 04/16/22 9:35:00 EDT, [facility], 177, cm, 12/21/21 8:59:00 EST, Height, 114.4, kg, 02/14/22 21:57:00 EDT, Dry Weight Start Date: 04/16/22 Status: Ordered chlorthalidone 25 mg oral tablet 25 mg, 1, tablet, By Mouth, Daily, # 90 tablet, Refills 3, Tot. Refills 3, Maintenance, 08/02/22 15:37:00 EDT, Route to Pharmacy Electronically, [facility], replaces spironolactone, 177, cm, 12/21/21 8:59:00 EST, Height, 114.4, kg, 04... Start Date: 08/02/22 Stop Date: 07/28/23 Status: [...] (SEVERE ALLERGY), # 2 Unknown, 1 Refills, [facility], 177, cm, 06/02/21 11:35:00 EDT, Height, 108, kg, 05/24/21 19:44:00 EDT, Dry Weight Start Date: 09/08/21 Status: Ordered gabapentin 300 mg oral capsule See Instructions, TAKE 3 CAPSULES BY MOUTH IN THE MORNING, 2 CAPSULES EARLY PM AND 3 CAPSULES AT BEDTIME., # 900 capsule, Refills 3, Instructions Replace Required Details, Route to Pharmacy Electronically, [facility], 177, cm, 12/21/21 8:59:... Start Date: 01/11/22 [...] 08/02/22 15:46:00 EDT, Route to Pharmacy Electronically, [facility], [place]... Start Date: 08/02/22 Stop Date: 10/01/22 Status: Ordered losartan 100 mg oral tablet 1 tablet = 100 mg, By Mouth, Daily, # 90 tablet, 4 Refills, Maintenance, 03/31/22 15:03:00 EDT, Tablet, [facility], increase in dose, 177, cm, 12/21/21 8:59:00 EST, Height, 114.4, kg,02/14/22 21:57:00 EDT, Dry Weight Start Date: 03/31/22 Stop Date: 06/24/23 Status: Ordered Mapap Arthritis Pain 650 mg oral tablet, extended release 2 tablet, By Mouth, Every 8 hours, PRN NEEDED FOR PAIN FOR, for 30 days, # 90 tablet, 9 Refills,Physician Stop 10/17/22 9:00:00 EST, 12/21/21 9:00:00 EST, [facility], 177, cm, 12/21/21 8:59:00 EST, [...] , Severe, # 56 tablet, 0 Refills, Maintenance,07/29/22 15:45:00 EDT, [facility] do not refill earlier than 07/04/22, 177, cm, 12/21/21 8:59:00 EST, Height, 114.4, kg, 02/14/22 21:57:... Start Date: 07/29/22 Stop Date: 08/26/22 Status: Ordered Periwash Perineal cleaning solution Periwash [...] Gm, 5 Refills, Maintenance, 07/08/22 10:48:00 EDT, [facility], [facility], cm, 12/21/21 8:59:00 EST, Height, 114.4, kg, 02/14/22 21:57:00 EDT, Dry Weight Start Date: 07/08/22 Status: Ordered zolpidem 10 mg oral tablet 1 tablet, By Mouth, Daily at bedtime, PRN NEEDED FOR INSOMNIA, for 28 days, # 28 tablet, 0 Refills, Acute 08/17/22 15:47:00 EDT, 07/20/22 15:47:00 EDT, [facility], [facility] on April 15, 2022, 177, cm, 12/21/21 8:59:00 EST, Height, 114.... Start Date: 07/20/22 Stop Date: 08/17/22 Status: Ordered Problem List Condition Confirmation Course [...] controlled Confirmed Active Urine incontinence Confirmed Active Procedures Procedure Date Related Diagnosis Body Site Status Colonoscopy 1 07/19/22 Completed 1tubular adenoma recheck in 3 years. Vital Signs Most recent to oldest [Reference Range]: 1 2 Height 0 cm (08/02/22 3:39 PM) 0 cm (08/02/22 3:33 PM) Weight 115.8 kg (08/02/22 3:33 PM) Pulse Rate [55-90 bpm] 88 bpm (08/02/22 3:33 PM) Blood Pressure [90-138/55-84 mm Hg] 150/ 76mm Hg *H* (08/02/22 3:39 PM) 148/82mm Hg *H* (08/02/22 3:33 PM) Blood pressure sites Arm, left (08/02/22 3:33 PM) Social History Social History Type Response Smoking Status 5-9 cigarettes (betw een 1/4 to 1/2 pack)/day in last 30 days; Type: Cigarettes entered on: 02/14/22 Sex Patient Care team information Personnel Name: Demario Nassar MD Address: Address: [address] [place] [address] Adult & Pediatric Medicine [place], [place] [address]
--- OUTSIDE RECORDS SUMMARY | 2023-12-11 08:27 | XMS_ITS | Continuity of Care Document ---
Author Name Unknown Organization [facility] Address [address] [place] [address]- Care Team Providers Care Management Rep Name Role Phone Cesario SCHULER, Demario Primary Care Physician Encounter [facility] Date(s): 03/10/22 - 04/09/22 [facility] [address] [place], [place] [address] Allergies, Adverse Reactions, Alerts Substance Reaction [...] (oldterm) 12 10/08/07 Give n 1Result Comment: [id number] given w/out incident 2Result Comment: [facility]: [id number] 3Result Comment: [id number] given w/out incident 4Result Comment: [08/17/2018] [facility] [id number] 5Result Comment: [08/31/2017] given w/out incident [facility]: [id number] 6Result Comment: [08/21/2014] given w/o incident...AA 7Result Comment: [07/25/2013] given w/out incident 8Admin Note: vis sheet given. 9Admin Note: historial data 10Result Comment: [id number] 11Admin Note: mass bio 12Admin Note: sanofi [...] EVERY USE., # 36 Gm, 3 Refills, [facility], 90, INHALE 2 PUFFS BY MOUTH TWO TIMES A DAY RINSE MOUTH AFTER EVERY USE., 177, cm, 10/19/21 10:00:00 EST, Height, 108, kg... Start Date: 12/21/21 Status: Ordered amitriptyline 100 mg oral tablet 0.5 tablet = 50 mg, By Mouth, Daily at bedtime, # 45 tablet, 3 Refills, Maintenance, 06/02/21 11:36:00 EDT, Tablet, [facility] 177, cm, 06/02/21 11:35:00 EDT, Height, 108, kg, 05/24/21 19:44:00 EDT, Dry Weight Start Date: 06/02/21 Stop Date: 05/28/22 Status: Ordered amLODIPine 10 mg oral tablet 10 mg, 1, tablet, By Mouth, Daily, # 90 tablet, Refills 1, Tot. Refills 1, Maintenance, 05/28/22 11:36:00 EDT, Route to Pharmacy Electronically, [facility], 177, cm, 10/19/21 10:00:00EST, Height, 108, [...] Refills, Maintenance, 09/16/21 9:24:00 EST, ER Tablet, [facility], increase in dose, 177, cm, 06/02/21 11:35:00 EDT, Height, 108, kg, 05/24/21 19:44:00 EDT, Dry Weight Start Date: 09/16/21 Stop Date: 09/11/22 Status: Ordered busPIRone 10 mg oral tablet 15 mg, 1.5, tablet, By Mouth, 2 times a day, # 270 tablet, Refills 3, Tot. Refills 3, Maintenance, 09/16/21 9:24:00 EST, Route to Pharmacy Electronically, [facility], 177, cm, 06/02/21 11:35:00 EDT, Height, 108, kg, 05/24/21 19:44:00 E... Start Date: 09/16/21 Stop Date: 09/11/22 Status: Ordered cetirizine 10 mg oral tablet 1 tablet, By Mouth, Daily, PRN NEEDED FOR ALLERGY SYMPTOMS, # 30 tablet, 5 Refills, [facility], 177, cm, 09/16/21 10:06:00 EST, [...] (SEVERE ALLERGY), # 2 Unknown, 1 Refills, [facility], 177, cm, 06/02/21 11:35:00 EDT, Height, 108, kg, 05/24/21 19:44:00 EDT, Dry Weight Start Date: 09/08/21 Status: Ordered gabapentin 300 mg oral capsule See Instructions, TAKE 3 CAPSULES BY MOUTH IN THE MORNING, 3 CAPSULES EARLY PM AND 4 CAPSULES AT BEDTIME., # 900 capsule, Refills 3, Instructions Replace Required Details, Route to Pharmacy Electronically, [facility], 177, cm, 12/21/21 8:59:... Start Date: 01/11/22 Status: Ordered gloves, large gloves, large, See Instructions, # 50 each, Refills 11, Tot. Refills 11, Maintenance, use when handling soiled linen Dx: N39.4, 03/20/20 17:02:00 EDT, Supply Start Date: 03/20/20 Status: Ordered losartan 100 mg oral tablet 1 tablet = 100 mg, By Mouth, Daily, # 90 tablet, 4 Refills, Maintenance, 03/31/22 15:03:00 EDT, [facility]t, [facility], [facility] in dose, 177, cm, 12/21/21 8:59:00 EST, Height, 114.4, kg,02/14/22 21:57:00 EDT, Dry Weight Start Date: 03/31/22 Stop Date: 06/24/23 Status: Ordered Mapap Arthritis Pain 650 mg oral tablet, extended release 2 tablet, By Mouth, Every 8 hours, PRN NEEDED FOR PAIN FOR, for 30 days, # 90 tablet, 9 Refills,Physician Stop 10/17/22 9:00:00 EST, 12/21/21 9:00:00 EST, [facility] 177, cm, 12/21/21 8:59:00 EST, Height, [...] 56tablet, 0 Refills, Maintenance, 03/15/22 16:28:00 EDT, [facility], may dispense today. cancel previous Rx [...] 01/11/22 15:16:00 EDT, Route to Pharmacy Electronically, [facility], Partial fill uponpatient request if the prescription is for a schedu... Start Date: 01/11/22 Stop Date: 07/10/22 Status: Ordered Ventolin HFA 108 mcg/inh inhalation aerosol with adapter 2 puffs, Inhalation, 4 times a day, PRN NEEDED FOR WHEEZING, # 18 Gm, 6 Refills, 12/28/21 11:00:00 EST, [facility], 177, cm, 12/21/21 8:59:00 EST, Height, 108, kg, 05/24/21 19:44:00 EDT, Dry Weight Start Date: 12/28/21 Status: Ordered Zofran 4 mg oral tablet 1 tablet = 4 mg, By Mouth, Every 8 hours, PRN Nausea & Vomiting, # 12 tablet, 0 Refills, Acute 06/09/22 10:43:00 EDT, 06/09/21 10:43:00 EDT, Tablet, [facility], Partial fill upon patient request if the prescription is for a schedule II... 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
--- OUTSIDE RECORDS SUMMARY | 2023-12-11 08:27 | XMS_ITS | Continuity of Care Document ---
Author Name Unknown Organization [facility] Address [address] [place] [address]- Care Team Providers Care Grape Picker Name Role Phone Cesario SCHULER, Demario Primary Care Physician [facility] [facility] Date(s): 12/19/22 - 01/18/23 [facility] [address] [place], [place] [address] Allergies, Adverse Reactions, Alerts [...] Reason: Other : not documented 2Result Comment: [id number] given w/out incident 3Result Comment: [id number] given w/out incident 4Result Comment: [facility]: [id number] 5Result Comment: [id number] given w/out incident 6Result Comment: [08/17/2018] [facility] [id number] 7Result Comment: [08/31/2017] given w/out incident [facility] [id number] 8Result Comment: [08/21/2014] given w/o incident...AA 9Result Comment: [07/25/2013] given w/out incident 10Admin Note: vis sheet given. 11Admin Note: historial data 12Result Comment: [id number] 13Admin Note: mass bio 14Admin Note: sanofi [...] Gm, 1 Refills, Maintenance, 01/06/23 15:18:00 EST, [facility], [facility], INHALE 2 PUFFS BY MOUTH TWO TIMES A DAY RINSE MOUTH AFTER EVERYUSE., 167, cm, 12/05/22 10:53:00 EST, Height, 114.4... Start Date: 01/06/23 Status: Ordered All Day Allergy 10 mg oral tablet 1 tablet, By Mouth, Daily, PRN NEEDED FOR ALLERGY SYMPTOMS, # 30 tablet, 6 Refills, Maintenance,11/08/22 15:08:00 EST, [facility], 177, cm, 12/21/21 8:59:00 EST, Height, 114.4, kg, 02/14/22 21:57:00 EDT, Dry Weight Start Date: 11/08/22 Status: Ordered amLODIPine 10 mg oral tablet 10 mg, 1, tablet, By Mouth, Daily, # 90 tablet, Refills 3, Tot. Refills 3, Maintenance, 11/25/22 15:31:00 EST, Route to Pharmacy Electronically, [facility], 177, cm, 12/21/21 8:59:00 EST, Height, 114.4, [...] Refills, Maintenance, 10/21/22 12:33:00 EST, ER Tablet, [facility], increase in dose, 177, cm, 12/21/21 8:59:00 [...] 08/02/22 15:37:00 EDT, Route to Pharmacy Electronically, [facility], replaces spironolactone, 177, cm, 12/21/21 8:59:00 EST, [...] Refills, Maintenance, 03/31/22 15:03:00 EDT, Tablet, [facility] increase in dose, 177, cm, 12/21/21 8:59:00 EST, Height, 114.4, kg,02/14/22 21:57:00 EDT, Dry Weight Start Date: 03/31/22 Stop Date: 06/24/23 Status: Ordered Mapap Arthritis Pain 650 mg oral tablet, extended release 2 tablet, By Mouth, Every 8 hours, PRN NEEDED FOR PAIN, # 90 tablet, 11 Refills, Maintenance, 08/12/22 10:25:00 EDT, [facility], 177, cm, 12/21/21 8:59:00 EST, Height, [...] 56 tablet, 0 Refills, Maintenance,01/17/23 16:47:00 EDT, [facility], resent, 167, cm, 12/05/22 10:53:00 EST, Height, [...] Gm, 5 Refills, Maintenance, 12/15/22 14:09:00 EST, [facility] 167, cm, 12/05/22 10:53:00 [...] Team Personnel Name: Ermelinda Rice RN Position: [facility] RN Member Role: Primary Care Nurse Name: Tri Sebastian RN Position: S RN Member Role: Primary Care Nurse Name: Demario Nassar MD Position: [facility] Primary Care Physician Member Role: PCP Address: Address: [address] [place] [address] Adult [place] [address]- Care Team Related Persons Name: JENSEN EPIFANIO Address: home [address] [place] [address] [place] [id number] Name: DEUCE SEE
--- OUTSIDE RECORDS SUMMARY | 2023-12-11 08:27 | XMS_ITS | Continuity of Care Document ---
Author Name Unknown Organization [facility] Address [address] [place] [address]- Care Team Providers Care Lab Technologist Name Role Phone Cesario SCHULER, Demario Primary Care Physician [place] [facility] [place]): 05/24/21 - 06/23/21 [facility] [address] [place], [place] [address] Allergies, Adverse Reactions, Alerts Substance [...] 11 10/08/07 Give n 1Result Comment: [facility]: [id number] 2Result Comment: [id number] given w/out incident 3Result Comment: [08/17/2018] [facility] [id number] 4Result Comment: [08/31/2017] given w/out incident [facility]: [id number] 5Result Comment: [08/21/2014] given w/o incident...AA 6Result Comment: [07/25/2013] given w/out incident 7Admin Note: vis sheet given. 8Admin Note: historial data 9Result Comment: [id number] 10Admin Note: mass bio 11Admin Note: sanofi [...] each, 3 Refills,Maintenance, 05/28/21 18:23:00 EDT, Aerosol, [facility]/pharmacy #[id number], replaces Rx for symbicort not covered by her insurance, 2 puffs Inhalation 2 times a... Start Date: 05/28/21 Stop Date: 05/23/22 Status: Ordered albuterol 0.083% inhalation solution 3 mL = 2.5 mg, Inhalation, Every 6 hours, PRN for wheezing, Dx: COPD J44.9, # 60 each, 2 Refills, Maintenance, 06/02/21 11:29:00 EDT, Solution, [facility]., Partial fill upon patient request if the prescription is for a schedule II opio... Start Date: 06/02/21 Status: Ordered amitriptyline 100 mg oral tablet 1.5 tablet = 150 mg, By Mouth, Daily at bedtime, # 135 tablet, 3 Refills, Maintenance, 06/02/21 11:36:00 EDT, Tablet, [facility]., 177, cm, 06/02/21 11:35:00 EDT, Height, 108, kg, 05/24/21 19:44:00 EDT, Dry Weight Start Date: 06/02/21 Stop Date: 05/28/22 Status: Ordered amLODIPine 10 mg oral tablet 10 mg, 1, tablet, By Mouth, Daily, # 90 tablet, Refills 3, Tot. Refills 3, Maintenance, 06/02/21 11:36:00 EDT, Route to Pharmacy Electronically, [facility], 177, cm, 06/02/21 11:35:00EDT, Height, 108, kg, 05/24/21 19:44:00 EDT, Dry We... Start Date: 06/02/21 Stop Date: 05/28/22 Status: Ordered atorvastatin 20 mg oral tablet 1 tablet = 20 mg, By Mouth, Daily, # 90 tablet, 3 Refills, Maintenance, 05/11/20 9:45:00 EDT, Tablet, [facility], 167, cm, 01/14/20 9:59:00 EDT, Height [...] Refills, Maintenance, 09/29/20 14:40:00 EST, ER Tablet, [facility]., increase in dose, 167, cm, 01/14/20 9:59:00 EDT, Height Start Date: 09/29/20 Stop Date: 09/24/21 Status: Ordered busPIRone 10 mg oral tablet 10 mg, 1, tablet, By Mouth, 2 times a day, # 180 tablet, Refills 3, Tot. Refills 3, Maintenance, 07/07/20 12:31:00 EDT, Route to Pharmacy Electronically, [facility], 167, cm, 209:59:00 EDT, Height Start Date: 07/07/20 Stop Date: 07/02/21 Status: Ordered cetirizine 10 mg oral tablet 1 tablet = 10 mg, By Mouth, Daily, PRN for allergy symptoms, # 30 tablet, 2 Refills, Maintenance, 06/01/21 14:45:00 EDT, Tablet, [facility], 177, cm, 05/26/21 12:02:00 EDT, Height, [...] kit, 1 Refills, Soft Stop,04/16/20 10:16:00 EDT, [facility], 167, cm, 01/14/20 9:59:00 EDT, Height Start Date: 04/16/20 Status: Ordered FLUoxetine 20 mg oral capsule 3, capsule, By Mouth, Daily, # 270 capsule, Refills 0, Tot. Refills 0, Maintenance, 06/01/21 17:20:00 EDT, Route to Pharmacy Electronically, [facility], 177, cm, 05/26/21 12:02:00 EDT, Height, [...] 06/02/21 11:36:00 EDT, Route to Pharmacy Electronically, [facility], lower dose, 177, cm, 06/02/21 11:35:00 EDT, Height, 108, kg, 05/24/21 19:44:00... Start Date: 06/02/21 Stop Date: 05/28/22 Status: Ordered Mapap Arthritis Pain 650 mg oral tablet, extended release See Instructions, TAKE 2 TABLETS BY MOUTH EVERY 8 HOURS NEEDED FOR PAIN FOR 30 DAYS, # 90 tablet, 5 Refills, Acute, [facility], 167, cm, 01/14/20 9:59:00 EDT, Height [...] 56tablet, 0 Refills, Maintenance, 06/10/21 7:25:00 EDT, [facility], 177, cm, 06/02/2111:35:00 EDT, Height, 108, kg, 05/24/21 19:44:00 ED... Start Date: 06/10/21 Status: Ordered OxyCONTIN 15 mg oral tablet, extended release See Instructions, TAKE 1 TABLET BY MOUTH EVERY 12 HOURS NEEDED FOR SEVERE PAIN FOR 28 DAYS, # 56tablet, 0 Refills, Maintenance, 05/12/21 14:36:00 EDT, [facility], 167, cm, 01/14/20 9:59:00 EDT, [...] 12/19/21 11:01:00 EST, 06/22/21 11:01:00 EDT, Aerosol, [facility], replaces proair, 177, cm, 06/02/21 11:35:00 EDT, Height, 108, kg, 04/30... Start Date: 06/22/21 Stop Date: 12/19/21 Status: Ordered Zofran 4 mg oral tablet 1 tablet = 4 mg, By Mouth, Every 8 hours, PRN Nausea & Vomiting, # 12 tablet, 0 Refills, Acute 06/09/22 10:43:00 EDT, 06/09/21 10:43:00 EDT, Tablet, [facility], Partial fill upon patient request if the prescription is for a schedule II... 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
--- OUTSIDE RECORDS SUMMARY | 2023-12-11 08:27 | XMS_ITS | Continuity of Care Document ---
Author Name Unknown Organization [facility] Address [address] [place] [id number]- Care Team Providers Care Jail Officer Name Role Phone Demario Nassar MD Primary Care Physician [place] [facility] [place] - 06/26/[address] [address] Attending Physician: Not on Staff, Attending MD Admitting Physician: Not on Staff, Admitting MD Referring Physician: Not on Staff, Referring [...] (oldterm) 11 10/08/07 Give n 1Result Comment: [facility]: [id number] 2Result Comment: [id number] given w/out incident 3Result Comment: [08/17/2018] [facility] [id number] 4Result Comment: [08/31/2017] given w/out incident [facility]: [id number] 5Result Comment: [08/21/2014] given w/o incident...AA 6Result Comment: [07/25/2013] given w/out incident 7Admin Note: vis sheet given. 8Admin Note: historial data 9Result Comment: [id number] 10Admin Note: mass bio 11Admin Note: sanofi [...] each, 3 Refills,Maintenance, 05/28/21 18:23:00 EDT, Aerosol, [facility]/pharmacy #[id number], replaces Rx for symbicort not covered by her insurance, 2 puffs Inhalation 2 times a... Start Date: 05/28/21 Stop Date: 05/23/22 Status: Ordered albuterol 0.083% inhalation solution 3 mL = 2.5 mg, Inhalation, Every 6 hours, PRN for wheezing, Dx: COPD J44.9, # 60 each, 2 Refills, Maintenance, 06/02/21 11:29:00 EDT, [facility] upon patient request if the prescription is for a schedule II opio... Start Date: 06/02/21 Status: Ordered amitriptyline 100 mg oral tablet 1.5 tablet = 150 mg, By Mouth, Daily at bedtime, # 135 tablet, 3 Refills, Maintenance, 06/02/21 11:36:00 EDT, Tablet, [facility]., 177, cm, 06/02/21 11:35:00 EDT, Height, 108, kg, 05/24/21 19:44:00 EDT, Dry Weight Start Date: 06/02/21 Stop Date: 05/28/22 Status: Ordered amLODIPine 10 mg oral tablet 10 mg, 1, tablet, By Mouth, Daily, # 90 tablet, Refills 3, Tot. Refills 3, Maintenance, 06/02/21 11:36:00 EDT, Route to Pharmacy Electronically, [facility]., 177, cm, 06/02/21 11:35:00EDT, Height, 108, kg, 05/24/21 19:44:00 EDT, Dry We... Start Date: 06/02/21 Stop Date: 05/28/22 Status: Ordered atorvastatin 20 mg oral tablet 1 tablet = 20 mg, By Mouth, Daily, # 90 tablet, 3 Refills, Maintenance, 05/11/20 9:45:00 EDT, Tablet, [facility]., 167, cm, 01/14/20 9:59:00 EDT, Height Start [...] Refills, Maintenance, 09/29/20 14:40:00 EST, ER Tablet, [facility]., increase in dose, 167, cm, 01/14/20 9:59:00 EDT, Height Start Date: 09/29/20 Stop Date: 09/24/21 Status: Ordered busPIRone 10 mg oral tablet 10 mg, 1, tablet, By Mouth, 2 times a day, # 180 tablet, Refills 3, Tot. Refills 3, Maintenance, 07/07/20 12:31:00 EDT, Route to Pharmacy Electronically, [facility], 167, cm, 209:59:00 EDT, Height Start Date: 07/07/20 Stop Date: 07/02/21 Status: Ordered cetirizine 10 mg oral tablet 1 tablet = 10 mg, By Mouth, Daily, PRN for allergy symptoms, # 30 tablet, 2 Refills, Maintenance, 06/01/21 14:45:00 EDT, Tablet, [facility], 177, cm, 05/26/21 12:02:00 EDT, Height, [...] kit, 1 Refills, Soft Stop,04/16/20 10:16:00 EDT, [facility], 167, cm, 01/14/20 9:59:00 EDT, Height Start Date: 04/16/20 Status: Ordered FLUoxetine 20 mg oral capsule 3, capsule, By Mouth, Daily, # 270 capsule, Refills 0, Tot. Refills 0, Maintenance, 06/01/21 17:20:00 EDT, Route to Pharmacy Electronically, [facility], 177, cm, 05/26/21 12:02:00 EDT, Height, 108, [...] 06/02/21 11:36:00 EDT, Route to Pharmacy Electronically, [facility], lower dose, 177, cm, 06/02/21 11:35:00 EDT, Height, 108, kg, 05/24/21 19:44:00... Start Date: 06/02/21 Stop Date: 05/28/22 Status: Ordered Mapap Arthritis Pain 650 mg oral tablet, extended release See Instructions, TAKE 2 TABLETS BY MOUTH EVERY 8 HOURS NEEDED FOR PAIN FOR 30 DAYS, # 90 tablet, 5 Refills, Acute, [facility], 167, cm, 01/14/20 9:59:00 EDT, Height Start [...] 56tablet, 0 Refills, Maintenance, 06/10/21 7:25:00 EDT, [facility], 177, cm, 06/02/2111:35:00 EDT, Height, 108, kg, 05/24/21 19:44:00 ED... Start Date: 06/10/21 Status: Ordered OxyCONTIN 15 mg oral tablet, extended release See Instructions, TAKE 1 TABLET BY MOUTH EVERY 12 HOURS NEEDED FOR SEVERE PAIN FOR 28 DAYS, # 56tablet, 0 Refills, Maintenance, 05/12/21 14:36:00 EDT, [facility], 167, cm, 01/14/20 9:59:00 EDT, Height [...] 12/19/21 11:01:00 EST, 06/22/21 11:01:00 EDT, Aerosol, [facility], replaces proair, 177, cm, 06/02/21 11:35:00 EDT, Height, 108, kg, 04/30... Start Date: 06/22/21 Stop Date: 12/19/21 Status: Ordered Zofran 4 mg oral tablet 1 tablet = 4 mg, By Mouth, Every 8 hours, PRN Nausea & Vomiting, # 12 tablet, 0 Refills, Acute 06/09/22 10:43:00 EDT, 06/09/21 10:43:00 EDT, Tablet, [facility], Partial fill upon patient request if the prescription is for a schedule II... 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
--- OUTSIDE RECORDS SUMMARY | 2023-12-11 08:27 | XMS_ITS | Continuity of Care Document ---
Author Name Unknown Organization [facility] Address [address] [place] [address]- Care Team Providers Care Hook Up Driver Name Role Phone Cesario SCHULER, Demario Primary Care Physician [place] [facility] [place] 12/21/22 - 01/20/23 [facility] [address] [place], [place] [address] Allergies, Adverse Reactions, Alerts [...] Reason: Other : not documented 2Result Comment: [id number] given w/out incident 3Result Comment: [id number] given w/out incident 4Result Comment: [facility]: [id number] 5Result Comment: [id number] given w/out incident 6Result Comment: [08/17/2018] [facility] [id number] 7Result Comment: [08/31/2017] given w/out incident [facility]: [id number] 8Result Comment: [08/21/2014] given w/o incident...AA 9Result Comment: [07/25/2013] given w/out incident 10Admin Note: vis sheet given. 11Admin Note: historial data 12Result Comment: [id number] 13Admin Note: mass bio 14Admin Note: sanofi [...] Gm, 1 Refills, Maintenance, 01/06/23 15:18:00 EST, [facility], [facility], INHALE 2 PUFFS BY MOUTH TWO TIMES A DAY RINSE MOUTH AFTER EVERYUSE., 167, cm, 12/05/22 10:53:00 EST, Height, 114.4... Start Date: 01/06/23 Status: Ordered All Day Allergy 10 mg oral tablet 1 tablet, By Mouth, Daily, PRN NEEDED FOR ALLERGY SYMPTOMS, # 30 tablet, 6 Refills, Maintenance,11/08/22 15:08:00 EST, [facility], 177, cm, 12/21/21 8:59:00 EST, Height, 114.4, kg, 02/14/22 21:57:00 EDT, Dry Weight Start Date: 11/08/22 Status: Ordered amLODIPine 10 mg oral tablet 10 mg, 1, tablet, By Mouth, Daily, # 90 tablet, Refills 3, Tot. Refills 3, Maintenance, 11/25/22 15:31:00 EST, Route to Pharmacy Electronically, [facility], 177, cm, 12/21/21 8:59:00 EST, Height, [...] Refills, Maintenance, 10/21/22 12:33:00 EST, ER Tablet, [facility], increase in dose, 177, cm, 12/21/21 [...] 08/02/22 15:37:00 EDT, Route to Pharmacy Electronically, [facility], replaces spironolactone, 177, cm, 12/21/21 8:59:00 [...] # 2 Unknown, 1 Refills, [facility], 177, cm, 06/02/21 11:35:00 EDT, Height, 108, kg, 05/24/21 19:44:00 EDT, Dry Weight Start Date: 09/08/21 Status: Ordered gabapentin 300 mg oral capsule See Instructions, TAKE 3 CAPSULES BY MOUTH IN THE MORNING, 3 CAPSULES EARLY PM AND 4 CAPSULES AT BEDTIME., # 900 capsule, Refills 3, Maintenance, 12/23/22 13:41:00 EST, Instructions Replace Required Details, Route to Pharmacy Electronically, [facility] Start Date: 12/23/22 Status: Ordered gloves, large gloves, large, See Instructions, # 50 each, Refills 11, Tot. Refills 11, Maintenance, use when handling soiled linen Dx: N39.4, 03/20/20 17:02:00 EDT, Supply Start Date: 03/20/20 Status: Ordered losartan 100 mg oral tablet 1 tablet = 100 mg, By Mouth, Daily, # 90 tablet, 4 Refills, Maintenance, 03/31/22 15:03:00 EDT, Tablet, [facility]., increase in dose, 177, cm, 12/21/21 8:59:00 EST, Height, 114.4, kg,02/14/22 21:57:00 EDT, Dry Weight Start Date: 03/31/22 Stop Date: 06/24/23 Status: Ordered Mapap Arthritis Pain 650 mg oral tablet, extended release 2 tablet, By Mouth, Every 8 hours, PRN NEEDED FOR PAIN, # 90 tablet, 11 Refills, Maintenance, 08/12/22 10:25:00 EDT, [facility], [facility], cm, 12/21/21 8:59:00 EST, Height, [...] 56 tablet, 0 Refills, Maintenance,01/17/23 16:47:00 EDT, [facility], resent, 167, cm, 12/05/22 10:53:00 EST, [...] Gm, 5 Refills, Maintenance, 12/15/22 14:09:00 EST, [facility] 167, [...] Team Personnel Name: Ermelinda Rice RN Position: [facility] RN Member Role: Primary Care Nurse Name: Tri Sebastian RN Position: S RN Member Role: Primary Care Nurse Name: Demario Nassar MD Position: [facility] Primary Care Physician Member Role: PCP Address: Address: [address] [place] [address] Adult & [place] [address]- Care Team Related Persons Name: JENSEN EPIFANIO Address: home [address] [place] [address] [place] [id number] Name: DEUCE SEE
--- OUTSIDE RECORDS SUMMARY | 2023-12-11 08:27 | XMS_ITS | Continuity of Care Document ---
Author Name Unknown Organization [facility] Address [address] [place] [address]- Care Team Providers Care Conference Services Coordinator Name Role Phone Demario Nassar MD Primary Care Physician [place] [facility] [place]/10[place]23 - 05/10/23 [facility] [address] [place], [place] [address] Allergies, Adverse Reactions, Alerts Substance [...] Reason: Other : not documented 2Result Comment: [id number] given w/out incident 3Result Comment: [id number] given w/out incident 4Result Comment: [facility]: [id number] 5Result Comment: [id number] given w/out incident 6Result Comment: [08/17/2018] [facility] [phone] 7Result Comment: [08/31/2017] given w/out incident [facility]: [phone] 8Result Comment: [08/21/2014] given w/o incident...AA 9Result Comment: [07/25/2013] given w/out incident 10Admin Note: vis sheet given. 11Admin Note: historial data 12Result Comment: [id number] 13Admin Note: mass bio 14Admin Note: sanofi [...] Gm, 1 Refills, Maintenance, 01/06/23 15:18:00 EST, [facility], 90, INHALE 2 PUFFS BY MOUTH TWO TIMES A DAY RINSE MOUTH AFTER EVERYUSE., 167, cm, 12/05/22 10:53:00 EST, Height, 114.4... Start Date: 01/06/23 Status: Ordered All Day Allergy 10 mg oral tablet 1 tablet, By Mouth, Daily, PRN NEEDED FOR ALLERGY SYMPTOMS, # 30 tablet, 6 Refills, Maintenance,11/08/22 15:08:00 EST, [facility], 177, cm, 12/21/21 8:59:00 EST, Height, [...] tablet, 1 Refills, Maintenance, 02/03/23 16:11:00 EDT, [facility], 167, cm, 12/05/22 10:53:00 EST, [...] Refills, Maintenance, 10/21/22 12:33:00 EST, ER Tablet, [facility], increase in dose, 177, cm, [...] 08/02/22 15:37:00 EDT, Route to Pharmacy Electronically, [facility], replaces spironolactone, 177, cm, 12/21/21 [...] (SEVERE ALLERGY), # 2 Unknown, 1 Refills, [facility], 177, cm, 06/02/21 11:35:00 EDT, Height, 108, kg, 05/24/21 19:44:00 EDT, Dry Weight Start Date: 09/08/21 Status: Ordered gabapentin 300 mg oral capsule See Instructions, TAKE 3 CAPSULES BY MOUTH IN THE MORNING, 3 CAPSULES EARLY PM AND 4 CAPSULES AT BEDTIME., # 900 capsule, Refills 3, Maintenance, 12/23/22 13:41:00 EST, Instructions Replace Required Details, Route to Pharmacy Electronically, [facility]... Start Date: 12/23/22 Status: Ordered gloves, large gloves, large, See Instructions, # 50 each, Refills 11, Tot. Refills 11, Maintenance, use when handling soiled linen Dx: N39.4, 03/20/20 17:02:00 EDT, Supply Start Date: 03/20/20 Status: Ordered losartan 100 mg oral tablet 1 tablet = 100 mg, By Mouth, Daily, # 90 tablet, 4 Refills, Maintenance, 03/31/22 15:03:00 EDT, Tablet, [facility]., increase in dose, 177, cm, 12/21/21 8:59:00 EST, Height, 114.4, kg,02/14/22 21:57:00 EDT, Dry Weight Start Date: 03/31/22 Stop Date: 06/24/23 Status: Ordered Mapap Arthritis Pain 650 mg oral tablet, extended release 2 tablet, By Mouth, Every 8 hours, PRN NEEDED FOR PAIN, # 90 tablet, 11 Refills, Maintenance, 08/12/22 10:25:00 EDT, [facility], 177, cm, 12/21/21 8:59:00 EST, Height, [...] 56 tablet, 0 Refills, Maintenance,05/09/23 16:04:00 EDT, [facility]., resent, 167, cm, 12/05/22 10:53:00 EST, [...] Gm, 5 Refills, Maintenance, 05/03/23 18:41:00 EDT, [facility], 167, cm, 12/05/22 10:53:00 EST, Height, [...] Care Member Role: PCP Address: Address: [address] [place] [address] Adult & Pediatric Medicine [address] Care Team Related Persons Name: EPIFANIO STYLES Address: [address] [address] Name: DEUCE SEE
--- OUTSIDE RECORDS SUMMARY | 2023-12-11 08:27 | XMS_ITS | Continuity of Care Document ---
Author Name Unknown Organization [facility] Address [address] [place] [address]- Care Team Providers Care Bill Peddler Name Role Phone Demario Nassar MD Primary Care Physician Encounter [facility] Date(s): 04/16/20 - 04/23/20 [facility] [address] [place] [address]- [facility] Encounter Diagnosis Diabetes mellitus type 2, controlled(Discharge Diagnosis) - 04/16/20 Hypercholesterolemia(Discharge Diagnosis) - 04/16/20 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(Discharge Diagnosis) - 04/16/20 Obesity(Discharge Diagnosis) - 04/16/20 Obstructive sleep apnea syndrome(Discharge Diagnosis) - 04/16/20 Attending Physician: Demario Nassar MD Allergies, Adverse [...] (oldterm) 10 10/08/07 Give n 1Result Comment: [id number] given w/out incident 2Result Comment: [08/17/2018] [facility] 10743-768-23 3Result Comment: [08/31/2017] given w/out incident [facility]: [id number] 4Result Comment: [08/21/2014] given w/o incident...AA 5Result Comment: [07/25/2013] given w/out incident 6Admin Note: vis sheet given. 7Admin Note: historial data 8Result Comment: [id number] 9Admin Note: mass bio 10Admin Note: sanofi Medications acetaminophen 650 mg oral tablet, extended release 2 tablet = 1,300 mg, By Mouth, Every 8 hours, PRN as needed for pain, for 30 days, # 90 tablet, 5 Refills, Acute 10/18/20 17:11:00 EST, 04/21/20 17:11:00 EDT, ER Tablet, [facility]., 167, cm, 01/14/20 9:59:00 EDT, Height Start Date: 04/21/20 Stop Date: 10/18/20 Status: Ordered Advair HFA 115 mcg / 21 mcg 2 puffs, Inhalation, 2 times a day, Dx: COPD rinse mouth and throat after use, # 3 each, 3 Refills,Maintenance, 04/16/20 10:16:00 EDT, [facility] Rx for symbicort not covered by her insurance, 2 puffs Inhalation 2... Start Date: 04/16/20 Stop Date: 04/11/21 Status: Ordered amitriptyline 100 mg oral tablet 1.5 tablet = 150 mg, By Mouth, Daily at bedtime, # 135 tablet, 3 Refills, Maintenance, 04/16/20 10:16:00 EDT, Tablet, [facility] 167, cm, 01/14/20 9:59:00 EDT, Height Start Date: 04/16/20 Stop Date: 04/11/21 Status: Ordered amLODIPine 10 mg oral tablet 10 mg, 1, tablet, By Mouth, Daily, # 90 tablet, Refills 3, Tot. Refills 3, Maintenance, 04/16/20 10:16:00 EDT, Route to Pharmacy Electronically, [facility], 167, cm, 01/14/20 9:59:00 EDT, Height [...] 04/16/20 10:16:00 EDT, Route to Pharmacy Electronically, [facility], 167, cm, 209:59:00 EDT, Height Start Date: 04/16/20 Stop Date: 04/11/21 Status: Ordered chlorthalidone 25 mg oral tablet 25 mg, 1, tablet, By Mouth, Daily, # 90 tablet, Refills 3, Tot. Refills 3, Maintenance, 04/16/20 10:15:00 EDT, Route to Pharmacy Electronically, [facility], replaces hydrochlorothiazide, 167, cm, 01/14/20 9:59:00 [...] kit, 1 Refills, Soft Stop,04/16/20 10:16:00 EDT, [facility], 167, cm, 01/14/20 9:59:00 EDT, Height Start Date: 04/16/20 Status: Ordered FLUoxetine 20 mg oral capsule 3, capsule, By Mouth, Daily, # 270 capsule, Refills 3, Tot. Refills 0, Maintenance, 02/21/20 15:09:00 EDT, Route to Pharmacy Electronically, [facility], 167, cm, 01/14/20 9:59:00 EDT, Height [...] 01/14/20 10:17:00 EDT, Route to Pharmacy Electronically, [facility], lower dose, 167, cm, 01/14/20 9:59:00 EDT, Height Start Date: 01/14/20 Stop Date: 01/08/21 Status: Ordered Meclizine By Mouth, 3 times a day, 0 Refills, Maintenance, 12/14/18 15:25:26 EST Start Date: 12/14/18 Status: Ordered nystatin topical [id number] u/gm powder See Instructions, APPLY TOPICALLY TO AFFECTED AREA TWO TIMES A DAY FOR 14 DAYS, # 30 Gm, 0 Refills,Acute, [facility], 14, APPLY TOPICALLY TO AFFECTED [...] # 56 tablet, 0 Refills, Hard Stop 05/11/20 15:35:00 EDT, 04/13/20 15:35:00 EDT, ER Tablet, [facility]... Start Date: 04/13/20 Stop Date: 05/11/20 Status: Ordered Periwash Perineal cleaning solution Periwash [...] Refills, Soft Stop, 01/14/20 10:16:00 EDT, Aerosol, [facility], replaces proair, 167, cm, 01/14/20 9:59:00 EDT, Height Start Date: 01/14/20 Stop Date: 07/12/20 Status: Ordered zolpidem 10 mg oral tablet 1 tablet = 10 mg, By Mouth, Daily at bedtime, PRN as needed for insomnia, # 28 tablet, 0 Refills, Soft Stop, 03/27/20 17:41:00 EDT, [facility], 167, cm, 01/14/20 9:59:00 EDT, Height Start Date: 03/27/20 Stop Date: 04/24/20 Status: Ordered Problem List Condition Effective Dates [...] mellitus (aunt)(Confirmed) Active FH: 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 (mom)(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
--- OUTSIDE RECORDS SUMMARY | 2023-12-11 08:27 | XMS_ITS | Continuity of Care Document ---
Author Name Unknown Organization [facility] Address [address] [place] [address]- Care Team Providers Care Call Center Director Name Role Phone Cesario SCHULER, Demario Primary Care Physician Encounter [facility] Date(s): 08/25/22 - 09/24/22 [facility] [address] [place], [place] [address] Allergies, Adverse Reactions, [...] (oldterm) 12 10/08/07 Give n 1Result Comment: [id number] given w/out incident 2Result Comment: [facility]: 38220-278-27 3Result Comment: [id number] given w/out incident 4Result Comment: [08/17/2018] [facility] [id number] 5Result Comment: [08/31/2017] given w/out incident [facility]: [id number] 6Result Comment: [08/21/2014] given w/o incident...AA 7Result Comment: [07/25/2013] given w/out incident 8Admin Note: vis sheet given. 9Admin Note: historial data 10Result Comment: [id number] 11Admin Note: mass bio 12Admin Note: sanofi [...] 36 Gm, 3 Refills, [facility], 90, INHALE 2 PUFFS BY MOUTH TWO TIMES A DAY RINSE MOUTH AFTER EVERY USE., 177, cm, 10/19/21 10:00:00 EST, Height, 108, kg... Start Date: 12/21/21 Status: Ordered amitriptyline 100 mg oral tablet 0.5 tablet = 50 mg, By Mouth, Daily at bedtime, # 45 tablet, 3 Refills, Maintenance, 06/02/21 11:36:00 EDT, Tablet[facility] 177, cm, 06/02/21 11:35:00 EDT, Height, 108, kg, 05/24/21 19:44:00 EDT, Dry Weight Start Date: 06/02/21 Stop Date: 05/28/22 Status: Ordered amLODIPine 10 mg oral tablet 10 mg, 1, tablet, By Mouth, Daily, # 90 tablet, Refills 1, Tot. Refills 1, Maintenance, 05/28/22 11:36:00 EDT, Route to Pharmacy Electronically, [facility], 177, cm, 10/19/21 10:00:00EST, Height, 108, kg, 05/24/21 19:44:00 EDT, Dry We... Start Date: 05/28/22 Stop Date: 11/24/22 Status: Ordered amLODIPine 10 mg oral tablet See Instructions, TAKE 1 TABLET BY MOUTH DAILY, # 90 tablet, 3 Refills, [facility], 177, cm, 12/21/21 8:59:00 EST, Height, [...] Refills, Maintenance, 09/16/21 9:24:00 EST, ER Tablet, [facility], increase in dose, 177, cm, 06/02/21 11:35:00 EDT, Height, 108, kg, 05/24/21 19:44:00 EDT, Dry Weight Start Date: 09/16/21 Stop Date: 09/11/22 Status: Ordered busPIRone 10 mg oral tablet 15 mg, 1.5, tablet, By Mouth, 2 times a day, # 270 tablet, Refills 3, Tot. Refills 3, Maintenance, 09/16/21 9:24:00 EST, Route to Pharmacy Electronically, [facility], 177, cm, 06/02/21 11:35:00 EDT, Height, 108, kg, 05/24/21 19:44:00 E... Start Date: 09/16/21 Stop Date: 09/11/22 Status: Ordered cetirizine 10 mg oral tablet 1 tablet, By Mouth, Daily, PRN NEEDED FOR ALLERGY SYMPTOMS, # 30 tablet, 5 Refills, 04/16/22 9:35:00 EDT, [facility], 177, cm, 12/21/21 8:59:00 EST, Height, 114.4, kg, 02/14/22 21:57:00 EDT, Dry Weight Start Date: 04/16/22 Status: Ordered chlorthalidone 25 mg oral tablet 25 mg, 1, tablet, By Mouth, Daily, # 90 tablet, Refills 3, Tot. Refills 3, Maintenance, 08/02/22 15:37:00 EDT, Route to Pharmacy Electronically, [facility], replaces spironolactone, 177, cm, 12/21/21 8:59:00 [...] (SEVERE ALLERGY), # 2 Unknown, 1 Refills, [facility], 177, cm, 06/02/21 11:35:00 EDT, Height, 108, kg, 05/24/21 19:44:00 EDT, Dry Weight Start Date: 09/08/21 Status: Ordered gabapentin 300 mg oral capsule See Instructions, TAKE 3 CAPSULES BY MOUTH IN THE MORNING, 2 CAPSULES EARLY PM AND 3 CAPSULES AT BEDTIME., # 900 capsule, Refills 3, Instructions Replace Required Details, Route to Pharmacy Electronically, [facility], 177, cm, 12/21/21 8:59:... Start Date: [...] 08/02/22 15:46:00 EDT, Route to Pharmacy Electronically, [facility], [place]... Start Date: 08/02/22 Stop Date: 10/01/22 Status: Ordered losartan 100 mg oral tablet 1 tablet = 100 mg, By Mouth, Daily, # 90 tablet, 4 Refills, Maintenance, 03/31/22 15:03:00 EDT, Tablet, [facility], increase in dose, 177, cm, 12/21/21 8:59:00 EST, Height, 114.4, kg,02/14/22 21:57:00 EDT, Dry Weight Start Date: 03/31/22 Stop Date: 06/24/23 Status: Ordered Mapap Arthritis Pain 650 mg oral tablet, extended release 2 tablet, By Mouth, Every 8 hours, PRN NEEDED FOR PAIN, # 90 tablet, 11 Refills, Maintenance, 08/12/22 10:25:00 EDT, [facility], 177, cm, 12/21/21 8:59:00 EST, Height, [...] 56 tablet, 0 Refills, Maintenance,08/29/22 10:15:00 EDT, [facility], resent, 177, cm, 12/21/21 8:59:00 EST, Height, [...] Gm, 5 Refills, Maintenance, 07/08/22 10:48:00 EDT, [facility], 177, cm, 12/21/21 8:59:00 EST, Height, 114.4, kg, 02/14/22 21:57:00 EDT, Dry Weight Start Date: 07/08/22 Status: Ordered zolpidem 10 mg oral tablet 1 tablet, By Mouth, Daily at bedtime, PRN NEEDED FOR INSOMNIA, for 28 days, # 28 tablet, 0 Refills, Acute 10/18/22 12:55:00 EST, 09/20/22 12:55:00 EST, [facility] refill on April 15, 2022, 177, [...] Team Personnel Name: Ermelinda Rice RN Position: [facility] RN Member Role: Primary Care Nurse Name: Tri Sebastian RN Position: S RN Member Role: Primary Care Nurse Name: Demario Nassar MD Position: [facility] Primary Care Physician Member Role: PCP Address: Address: [address] [place] [address] Adult [place] [address]- Care Team Related Persons Name: EPIFANIO STYLES Address: home [address] [place] [address] [place] [id number] Name: DEUCE SEE
--- OUTSIDE RECORDS SUMMARY | 2023-12-11 08:27 | XMS_ITS | Continuity of Care Document ---
Author Name Unknown Organization [facility] Address [address] [place] [address]- Care Team Providers Care Land Commissioner Name Role Phone Demario Nassar MD Primary Care Physician Encounter [facility] Date(s): 11/06/23 - 11/13/23 [facility] [address] [place], [place] [address] Encounter Diagnosis Lumbar spondylosis(Discharge Diagnosis) - 11/06/23 SI (sacroiliac) joint dysfunction(Discharge Diagnosis) - 11/06/23 Attending Physician: Demario Nassar MD Allergies, Adverse [...] Reason: Other : not documented 2Result Comment: [id number] given w/out incident 3Result Comment: [id number] given w/out incident 4Result Comment: [facility]: 16244-608-99 5Result Comment: [id number] given w/out incident 6Result Comment: [08/17/2018] [facility] [id number] 7Result Comment: [08/31/2017] given w/out incident [facility]: [id number] 8Result Comment: [08/21/2014] given w/o incident...AA 9Result Comment: [07/25/2013] given w/out incident 10Admin Note: vis sheet given. 11Admin Note: historial data 12Result Comment: [id number] 13Admin Note: mass bio 14Admin Note: sanofi [...] tablet, 5 Refills, Maintenance, 07/28/23 13:25:00 EDT, [facility], 167, cm, 05/29/23 18:21:00 EDT, Height, 114.4, kg, 02/14/22 21:57:00 EDT, Dry Weight Start Date: 07/28/23 Status: Ordered Advair HFA 115 mcg / 21 mcg 2 puffs, Inhalation, 2 times a day, AFTER EVERY USE., # 36 Gm, 1 Refills, Maintenance, 07/28/23 13:25:00 EDT, [facility], 90, INHALE 2 PUFFS BY MOUTH TWO TIMES A DAY RINSE MOUTH AFTER EVERYUSE., 167, cm, 05/29/23 18:21:00 EDT, Height, 114.4... Start Date: 07/28/23 Status: Ordered All Day Allergy 10 mg oral tablet 1 tablet, By Mouth, Daily, PRN NEEDED FOR ALLERGY SYMPTOMS, # 30 tablet, 5 Refills, Maintenance,06/20/23 7:39:00 EDT, [facility], 167, cm, 05/29/23 18:21:00 EDT, Height, 114.4, kg, 02/14/22 21:57:00 EDT, Dry Weight Start Date: 06/20/23 Status: Ordered amLODIPine 10 mg oral tablet 10 mg, 1, tablet, By Mouth, Daily, # 90 tablet, Refills 3, Tot. Refills 3, Maintenance, 11/25/22 15:31:00 EST, Route to Pharmacy Electronically, [facility], 177, cm, 12/21/21 8:59:00 EST, Height, 114.4, kg, 02/14/22 21:57:00 EDT, Dry W... Start Date: 11/25/22 Stop Date: 11/20/23 Status: Ordered atorvastatin 40 mg oral tablet 1 tablet, By Mouth, Daily, # 90 tablet, 1 Refills, Maintenance, 02/03/23 16:11:00 EDT, [facility]., 167, cm, 12/05/22 10:53:00 EST, Height, [...] 05/29/23 18:09:00 EDT, [facility] spironolactone, 167, cm, 05/29/23 [...] Unknown, 1 Refills, Maintenance, 05/12/23 12:41:00 EDT, [facility], 167, cm, 12/05/22 10:53:00 EST, Height, [...] 4 Refills, Maintenance, 05/29/23 18:09:00 EDT, Tablet, [facility] increase in dose, 167, cm, 05/29/23 17:54:00 [...] 56 tablet, 0 Refills, Maintenance,11/02/23 13:25:00 EST, [facility], 167, cm, 05/29/23 18:21:00 EDT, Height, [...] Gm, 5 Refills, Maintenance, 05/03/23 18:41:00 EDT, [facility], 167, cm, 12/05/22 10:53:00 EST, Height, 114.4, [...] Confirmed Active FH: 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 (mom) 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 Confirmed Active [...] Effective Dates Health Status Clinical Service Informant Lumbar spondylosis Discharge Diagnosis 11/06/23 SI (sacroiliac) joint dysfunction Discharge Diagnosis 11/06/23 Social History Social History Type Response Smoking Status 5-9 cigarettes (betw een 1/4 to 1/2 pack)/day in last 30 days; Type: Cigarettes entered on: 02/14/22 Sex Note * Daisy Amaya: PERFORM, SIGN, VERIFY Event Display: Patient Education/Instruction Authored Date: [id number] [facility] Clinical Summary Name EMIGDIO GARCIA Age 53 Years 1970 PCP Demario Nassar MD PCP Visit Date 11/06/2023 14:32:00 Patient Instructions 1. ??fasting lab work today 2. ??inform your pain specialist about your recent fall and how compensating for it, you now have back pain. 3. ??please ask your local pharmacist about the ??Shingrix shots 4. ??no changes to meds for now. 5. prescription for incontinence pads. 6. prescription for 4 wheel walker with seat as requested. Additional Instructions: Scheduled Appointments?? Future Appointments ?*[facility] ?[address]??[place],??[place],??[address] ?Phone:??--?Fax:??-- ?Appt. Date:??11/30/2023?9:40 AM ?Scheduled Provider:??Demario Nassar MD Follow-Up Instructions ?? Diagnosis Type 2 diabetes mellitus without complications; History of falling; Sacrococcygeal disorders, not elsewhere classified; Essential (primary) hypertension; Spondylosis without myelopathy or radiculopathy, lumbar region; Pure hypercholesterolemia, unspecified; Morbid (severe) obesity due to excess calories; Unspecified urinary incontinence; Obstructive sleep apnea (adult) (pediatric); Major depressive disorder, single episode, moderate Medications: Please continue your medications until treatment is completed or stopped by your provider. Discuss any questions related to medications with your provider. New Medications - Durable Medical Equipment (4 wheel walker with seat) use for mobility. 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 lifetime use Ht: 5'8 Wt: 247lbs. Refills: 0. Next Dose: Durable Medical Equipment (incontinence pads, large) use and replace QID as needed for urine incontinence. Dx: 39.81. Refills: 11. Next Dose: Medications to Continue with No [...] FOR ALLERGY SYMPTOMS. Refills: 5. Next Dose: Chlorthalidone (chlorthalidone 25 mg oral tablet) 1 tab(s) Oral Daily for 90 Days. Refills: 3. Next Dose: Durable Medical Equipment (Bladder pads [...] morphine Medications Given This Visit Future Orders ?No future orders Vital Signs Height Weight BMI Blood Pressure / Temperature Pulse Rate Respiratory Rate 02 Sat Mode of Delivery / You can now view a summary of your hospital visit from the comfort of your home through a free online portal called [employer]. [employer] is a website that allows you to securely view your medical information including discharge summary, medications and follow-up visits. ??You can alsosend a secure electronic message to your doctor???s office to request appointments, renew medications or just ask a question. You can enroll at [email or web address] or register during your next office visit. [...] primary care provider, you may find a [facility] provider by calling [facility] [employer] [facility] at [phone]. [facility], in keeping with [facility] guidance, no longer requires face masks [...] individualized medical care. Additional Provider Instructions: 1. fasting lab work today 2. inform your pain specialist about your recent fall and how compensating for it, you now have back pain. 3. please ask your local pharmacist about the Shingrix shots 4. no changes to meds for now. 5. prescription for incontinence pads. 6. prescription for 4 wheel walker with seat as requested. Patient Care team information Care Team Personnel Name: Ermelinda Rice RN Position: [facility] SN RN Member Role: Primary Care Nurse Name: Tri Sebastian RN Position: S RN Member Role: Primary Care Nurse Name: Demario Nassar MD Position: [facility] Physician - Primary Care Member Role: PCP Address: Address: [address] [place] [address] Adult [place] [address]- Care Team Related Persons Name: EPIFANIO STYLES Address: [address] [place] [id number] Name: DEUCE SEE
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
--- OUTSIDE RECORDS SUMMARY | 2023-12-11 08:27 | XMS_ITS | Continuity of Care Document ---
Author Name Unknown Organization [facility] Address [address] [place] [address]- Care Team Providers Care Fish Hatchery Inspector Name Role Phone Cesario SCHULER, Demario Primary Care Physician Encounter [facility] Date(s): 12/28/21 - 01/27/22 [facility] [address] [place], [place] [address] Allergies, Adverse Reactions, Alerts Substance [...] (oldterm) 12 10/08/07 Give n 1Result Comment: [id number] given w/out incident 2Result Comment: [facility]: [id number] 3Result Comment: [id number] given w/out incident 4Result Comment: [08/17/2018] [facility] [id number] 5Result Comment: [08/31/2017] given w/out incident [facility]: [id number] 6Result Comment: [08/21/2014] given w/o incident...AA 7Result Comment: [07/25/2013] given w/out incident 8Admin Note: vis sheet given. 9Admin Note: historial data 10Result Comment: [id number] 11Admin Note: mass bio 12Admin Note: sanofi [...] EVERY USE., # 36 Gm, 3 Refills, [facility], 90, INHALE 2 PUFFS BY MOUTH TWO TIMES A DAY RINSE MOUTH AFTER EVERY USE., 177, cm, 10/19/21 10:00:00 EST, Height, 108, kg... Start Date: 12/21/21 Status: Ordered amitriptyline 100 mg oral tablet 1.5 tablet = 150 mg, By Mouth, Daily at bedtime, # 135 tablet, 3 Refills, Maintenance, 06/02/21 11:36:00 EDT, Table[facility], [facility] 177, cm, 06/02/21 11:35:00 EDT, Height, 108, kg, 05/24/21 19:44:00 EDT, Dry Weight Start Date: 06/02/21 Stop Date: 05/28/22 Status: Ordered amLODIPine 10 mg oral tablet 10 mg, 1, tablet, By Mouth, Daily, # 90 tablet, Refills 1, Tot. Refills 1, Maintenance, 05/28/22 11:36:00 EDT, Route to Pharmacy Electronically, [facility], 177, cm, 10/19/21 10:00:00EST, Height, 108, [...] Refills, Maintenance, 09/16/21 9:24:00 EST, ER Tablet, [facility], increase in dose, 177, cm, 06/02/21 11:35:00 EDT, Height, 108, kg, 05/24/21 19:44:00 EDT, Dry Weight Start Date: 09/16/21 Stop Date: 09/11/22 Status: Ordered busPIRone 10 mg oral tablet 10 mg, 1, tablet, By Mouth, 2 times a day, # 180 tablet, Refills 3, Tot. Refills 3, Maintenance, 09/16/21 9:24:00 EST, Route to Pharmacy Electronically, [facility], 177, cm, 06/02/21 11:35:00 [...] Stop 10/17/22 9:00:00 EST, 12/21/21 9:00:00 EST, [facility], 177, cm, 12/21/21 8:59:00 EST, [...] 56tablet, 0 Refills, Maintenance, 01/18/22 7:46:00 EDT, [facility], 177, cm, :59:00 EST, Height, 108, [...] 01/11/22 15:16:00 EDT, Route to Pharmacy Electronically, [facility], Partial fill uponpatient request if the prescription is for a schedu... Start Date: 01/11/22 Stop Date: 07/10/22 Status: Ordered Ventolin HFA 108 mcg/inh inhalation aerosol with adapter 2 puffs, Inhalation, 4 times a day, PRN NEEDED FOR WHEEZING, # 18 Gm, 6 Refills, 12/28/21 11:00:00 EST, [facility] 177, cm, 12/21/21 8:59:00 EST, Height, 108, kg, 05/24/21 19:44:00 EDT, Dry Weight Start Date: 12/28/21 Status: Ordered Zofran 4 mg oral tablet 1 tablet = 4 mg, By Mouth, Every 8 hours, PRN Nausea & Vomiting, # 12 tablet, 0 Refills, Acute 06/09/22 10:43:00 EDT, 06/09/21 10:43:00 EDT, Tablet, [facility] Partial fill upon patient request if the [...] (aunt)(Confirmed) Active FH: 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 (mom)(Confirmed) 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
--- OUTSIDE RECORDS SUMMARY | 2023-12-11 08:28 | XMS_ITS | Continuity of Care Document ---
Author Name Unknown Organization [facility] Address [address] [place] [address]- Care Team Providers Care Email Specialist Name Role Phone Demario Nassar MD Primary Care Physician Encounter [facility] Date(s): 04/29/22 - 05/06/22 [facility] [address] [place], [place] [address] Attending Physician: Demario Nassar MD [...] (oldterm) 12 10/08/07 Give n 1Result Comment: [id number] given w/out incident 2Result Comment: [facility]: [id number] 3Result Comment: [id number] given w/out incident 4Result Comment: [08/17/2018] [facility] [phone] 5Result Comment: [08/31/2017] given w/out incident [facility]: [id number] 6Result Comment: [08/21/2014] given w/o incident...AA 7Result Comment: [07/25/2013] given w/out incident 8Admin Note: vis sheet given. 9Admin Note: historial data 10Result Comment: [id number] 11Admin Note: mass bio 12Admin Note: sanofi [...] EVERY USE., # 36 Gm, 3 [facility], [facility], [facility], INHALE 2 PUFFS BY MOUTH TWO TIMES A DAY RINSE MOUTH AFTER EVERY USE., 177, cm, 10/19/21 10:00:00 EST, Height, 108, kg... Start Date: 12/21/21 Status: Ordered amitriptyline 100 mg oral tablet 0.5 tablet = 50 mg, By Mouth, Daily at bedtime, # 45 tablet, 3 Refills, Maintenance, 06/02/21 11:36:00 EDT, Tablet, [facility] 177, cm, 06/02/21 11:35:00 EDT, Height, 108, kg, 05/24/21 19:44:00 EDT, Dry Weight Start Date: 06/02/21 Stop Date: 05/28/22 Status: Ordered amLODIPine 10 mg oral tablet 10 mg, 1, tablet, By Mouth, Daily, # 90 tablet, Refills 1, Tot. Refills 1, Maintenance, 05/28/22 11:36:00 EDT, Route to Pharmacy Electronically, [facility], 177, cm, 10/19/21 10:00:00EST, Height, 108, [...] Refills, Maintenance, 09/16/21 9:24:00 EST, ER Tablet, [facility], increase in dose, 177, cm, 06/02/21 11:35:00 EDT, Height, 108, kg, 05/24/21 19:44:00 EDT, Dry Weight Start Date: 09/16/21 Stop Date: 09/11/22 Status: Ordered busPIRone 10 mg oral tablet 15 mg, 1.5, tablet, By Mouth, 2 times a day, # 270 tablet, Refills 3, Tot. Refills 3, Maintenance, 09/16/21 9:24:00 EST, Route to Pharmacy Electronically, [facility], 177, cm, 06/02/21 11:35:00 EDT, Height, 108, kg, 05/24/21 19:44:00 E... Start Date: 09/16/21 Stop Date: 09/11/22 Status: Ordered cetirizine 10 mg oral tablet 1 tablet, By Mouth, Daily, PRN NEEDED FOR ALLERGY SYMPTOMS, # 30 tablet, 5 Refills, 04/16/22 9:35:00 EDT, [facility], 177, cm, 12/21/21 8:59:00 EST, Height, 114.4, kg, 02/14/22 21:57:00 EDT, Dry Weight Start Date: 04/16/22 Status: Ordered chlorthalidone 25 mg oral tablet 25 mg, 1, tablet, By Mouth, Daily, # 30 tablet, Refills 1, Tot. Refills 1, Maintenance, 04/29/22 14:31:00 EDT, Route to Pharmacy Electronically, [facility], replaces spironolactone, 177, cm, 12/21/21 8:59:00 [...] (SEVERE ALLERGY), # 2 Unknown, 1 Refills, [facility], 177, cm, 06/02/21 11:35:00 EDT, Height, 108, kg, 05/24/21 19:44:00 EDT, Dry Weight Start Date: 09/08/21 Status: Ordered gabapentin 300 mg oral capsule See Instructions, TAKE 3 CAPSULES BY MOUTH IN THE MORNING, 2 CAPSULES EARLY PM AND 3 CAPSULES AT BEDTIME., # 900 capsule, Refills 3, Instructions Replace Required Details, Route to Pharmacy Electronically, [facility], 177, cm, 12/21/21 8:59:... Start Date: [...] 4 Refills, Maintenance, 03/31/22 15:03:00 EDT, Tablet, [facility], increase in dose, 177, cm, 12/21/21 8:59:00 EST, Height, 114.4, kg,02/14/22 21:57:00 EDT, Dry Weight Start Date: 03/31/22 Stop Date: 06/24/23 Status: Ordered Mapap Arthritis Pain 650 mg oral tablet, extended release 2 tablet, By Mouth, Every 8 hours, PRN NEEDED FOR PAIN FOR, for 30 days, # 90 tablet, 9 Refills,Physician Stop 10/17/22 9:00:00 EST, 12/21/21 9:00:00 EST, [facility], 177, cm, 12/21/21 8:59:00 EST, Height, [...] 28 DAYS, # 56tablet, 0 Refills, Maintenance, 04/12/22 16:10:00 EDT, [facility], may dispense today. cancel previous Rx for 03/17 fill, 177, cm, 2... Start Date: 04/12/22 Status: Ordered Periwash Perineal cleaning solution Periwash [...] 18 Gm, 6 Refills, 12/28/21 11:00:00 EST, [facility], 177, cm, 12/21/21 8:59:00 EST, Height, 108, kg, 05/24/21 19:44:00 EDT, Dry Weight Start Date: 12/28/21 Status: Ordered Zofran 4 mg oral tablet 1 tablet = 4 mg, By Mouth, Every 8 hours, PRN Nausea & Vomiting, # 12 tablet, 0 Refills, Acute 06/09/22 10:43:00 EDT, 06/09/21 10:43:00 EDT, Tablet, [facility], Partial fill upon patient request if the prescription is for a schedule II... Start Date: 06/09/21 Stop Date: 06/09/22 Status: Ordered zolpidem 10 mg oral tablet 1 tablet, By Mouth, Daily at bedtime, PRN NEEDED FOR INSOMNIA, # 28 tablet, 0 Refills, Acute 05/10/22 4:03:00 EDT, 04/12/22 16:11:00 EDT, [facility], refill on April 15, 2022, 177, cm, 12/21/21 8:59:00 EST, Height, 114.4, kg, ... Start Date: 04/12/22 Stop Date: 05/10/22 Status: Ordered Problem List Condition Effective Dates [...] recent to oldest [Reference Range]: 1 Height 0 cm (04/29/22 2:16 PM) Weight 114.0 kg (04/29/22 2:16 PM) Oxygen Saturation [94-100 %] 96 % (04/29/22 2:16 PM) Pulse Rate [55-90 bpm] 88 bpm (04/29/22 2:16 PM) Blood Pressure [90-138/55-84 mm Hg] 138/ 80mm Hg (04/29/22 2:16 PM) Mode of Delivery (Oxygen) Room air (04/29/22 2:16 PM) Blood pressure sites Arm, left (04/29/22 2:16 PM) Social History Social History Type Response Smoking Status 5-9 cigarettes (betw een 1/4 to 1/2 pack)/day in last 30 days; Type: Cigarettes entered on: 02/14/22 Sex
--- OUTSIDE RECORDS SUMMARY | 2023-12-11 08:28 | XMS_ITS | Continuity of Care Document ---
Author Name Unknown Organization [facility] Address [address] [place] [address]- Care Team Providers Care Practice Nurse Name Role Phone Demario Nassar MD Primary Care Physician Encounter [facility] Date(s): 10/26/21 - 11/25/21 [facility] [address] [place], [place] [address] Allergies, Adverse Reactions, Alerts [...] (oldterm) 12 10/08/07 Give n 1Result Comment: [id number] given w/out incident 2Result Comment: [facility]: [id number] 3Result Comment: [id number] given w/out incident 4Result Comment: [08/17/2018] [facility] 39500-552-22 5Result Comment: [08/31/2017] given w/out incident [facility]: [id number] 6Result Comment: [08/21/2014] given w/o incident...AA 7Result Comment: [07/25/2013] given w/out incident 8Admin Note: vis sheet given. 9Admin Note: historial data 10Result Comment: [id number] 11Admin Note: mass bio 12Admin Note: sanofi [...] each, 1 Refills,Maintenance, 10/19/21 14:37:00 EST, Aerosol, [facility], replaces Rx for symbicort not covered by her insurance, 2 puffs Inhalation 2... Start Date: 10/19/21 Stop Date: 04/17/22 Status: Ordered albuterol 0.083% inhalation solution 3 mL = 2.5 mg, Inhalation, Every 6 hours, PRN for wheezing, Dx: COPD J44.9, # 60 each, 2 Refills, Maintenance, 06/02/21 11:29:00 EDT, Solution, [facility], Partial fill upon patient request if the prescription is for a schedule II opio... Start Date: 06/02/21 Status: Ordered amitriptyline 100 mg oral tablet 1.5 tablet = 150 mg, By Mouth, Daily at bedtime, # 135 tablet, 3 Refills, Maintenance, 06/02/21 11:36:00 EDT, Tablet, [facility], 177, cm, 06/02/21 11:35:00 EDT, Height, 108, kg, 05/24/21 19:44:00 EDT, Dry Weight Start Date: 06/02/21 Stop Date: 05/28/22 Status: Ordered amLODIPine 10 mg oral tablet 10 mg, 1, tablet, By Mouth, Daily, for 90 days, # 90 tablet, Refills 3, Tot. Refills 3, Hard Stop 05/28/22 11:36:00 EDT, 06/02/21 11:36:00 EDT, Route to Pharmacy Electronically, [facility], 177, cm, 06/02/21 11:35:00 EDT, Height, 108,... Start Date: 06/02/21 Stop Date: 05/28/22 Status: Ordered amLODIPine 10 mg oral tablet 10 mg, 1, tablet, By Mouth, Daily, # 90 tablet, Refills 1, Tot. Refills 1, Maintenance, 05/28/22 11:36:00 EDT, Route to Pharmacy Electronically, [facility], 177, cm, 10/19/21 10:00:00EST, Height, 108, kg, 05/24/21 19:44:00 EDT, Dry We... Start Date: 05/28/22 Stop Date: 11/24/22 Status: Ordered atorvastatin 20 mg oral tablet 1 tablet = 20 mg, By Mouth, Daily, # 90 tablet, 1 Refills, Maintenance, 07/26/21 13:55:00 EDT, Tablet, [facility] 177, cm, 06/02/21 11:35:00 EDT, Height, [...] Refills, Maintenance, 09/16/21 9:24:00 EST, ER Tablet, [facility], increase in dose, 177, cm, 06/02/21 11:35:00 EDT, Height, 108, kg, 05/24/21 19:44:00 EDT, Dry Weight Start Date: 09/16/21 Stop Date: 09/11/22 Status: Ordered busPIRone 10 mg oral tablet 10 mg, 1, tablet, By Mouth, 2 times a day, # 180 tablet, Refills 3, Tot. Refills 3, Maintenance, 09/16/21 9:24:00 EST, Route to Pharmacy Electronically, [facility], 177, cm, 06/02/21 11:35:00 EDT, Height, 108, kg, 05/24/21 19:44:00 EDT... Start Date: 09/16/21 Stop Date: 09/11/22 Status: Ordered cetirizine 10 mg oral tablet 1 tablet, By Mouth, Daily, PRN NEEDED FOR ALLERGY SYMPTOMS, # 30 tablet, 5 Refills, [facility], 177, cm, 09/16/21 10:06:00 EST, Height, 108, [...] (SEVERE ALLERGY), # 2 Unknown, 1 Refills, [facility], 177, cm, 06/02/21 11:35:00 EDT, Height, 108, kg, 05/24/21 19:44:00 EDT, Dry Weight Start Date: 09/08/21 Status: Ordered FLUoxetine 20 mg oral capsule 3, capsule, By Mouth, Daily, for 90 days, # 270 capsule, Refills 0, Physician Stop, Route to Pharmacy Electronically, [facility], 177, cm, 06/02/21 11:35:00 EDT, Height, [...] 06/02/21 11:36:00 EDT, Route to Pharmacy Electronically, [facility], lower dose, 177, cm, 06/02/21 11:35:00 EDT, Height, 108, kg, 05/24/21 19:44:00... Start Date: 06/02/21 Stop Date: 05/28/22 Status: Ordered Mapap Arthritis Pain 650 mg oral tablet, extended release 2 tablet, By Mouth, Every 8 hours, PRN NEEDED FOR PAIN FOR, for 30 days, # 90 tablet, 2 Refills,Physician Stop, [facility], 177, cm, 10/19/21 10:00:00 EST, Height, [...] 56tablet, 0 Refills, Maintenance, 11/23/21 11:01:00 EST, [facility], Pt requests an early refill [...] 09/16/21 9:30:00 EST, Route to Pharmacy Electronically, [facility], Partial fill upon patient request if the prescription is for a schedule... Start Date: 09/16/21 Stop Date: 02/13/22 Status: Ordered Ventolin HFA 108 mcg/inh inhalation aerosol with adapter 2 puffs, Inhalation, 4 times a day, PRN for wheezing, for 30 days, # 1 each, 5 Refills, Hard Stop 12/19/21 11:01:00 EST, 06/22/21 11:01:00 EDT, Aerosol, [facility], replaces proair, 177, cm, 06/02/21 11:35:00 EDT, Height, 108, kg, 04/30... Start Date: 06/22/21 Stop Date: 12/19/21 Status: Ordered Zofran 4 mg oral tablet 1 tablet = 4 mg, By Mouth, Every 8 hours, PRN Nausea & Vomiting, # 12 tablet, 0 Refills, Acute 06/09/22 10:43:00 EDT, 06/09/21 10:43:00 EDT, Tablet, [facility], Partial fill upon patient request if the prescription is for a schedule II... Start Date: 06/09/21 Stop Date: 06/09/22 Status: Ordered zolpidem 10 mg oral tablet 1 tablet, By Mouth, Daily at bedtime, PRN NEEDED FOR INSOMNIA, # 28 tablet, 0 Refills, Acute 12/24/21 11:01:00 EST, 11/23/21 11:01:00 EST, [facility], refill when due, 177, cm, 10/19/21 10:00:00 [...] mellitus (aunt)(Confirmed) Active FH: 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 (mom)(Confirmed) Active USP current use 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
--- OUTSIDE RECORDS SUMMARY | 2023-12-11 08:28 | XMS_ITS | Continuity of Care Document ---
Author Name Unknown Organization [facility] Address [address] [place] [address]- Care Team Providers Care Coverage Analyst Name Role Phone Cseario SCHULER, Demario Primary Care Physician [facility]counter [facility] Date(s): 02/22/22 - 03/24/22 [facility] [address] [place], [place] [address] Attending Physician: Admtr, Ar8 Allergies, Adverse Reactions, [...] (oldterm) 12 10/08/07 Give n 1Result Comment: [id number] given w/out incident 2Result Comment: [facility]: [id number] 3Result Comment: [id number] given w/out incident 4Result Comment: [08/17/2018] [facility] [id number] 5Result Comment: [08/31/2017] given w/out incident [facility]: [id number] 6Result Comment: [08/21/2014] given w/o incident...AA 7Result Comment: [07/25/2013] given w/out incident 8Admin Note: vis sheet given. 9Admin Note: historial data 10Result Comment: [id number] 11Admin Note: mass bio 12Admin Note: sanofi [...] USE., # 36 Gm, 3 Refills, [facility], 90, INHALE 2 PUFFS BY MOUTH TWO TIMES A DAY RINSE MOUTH AFTER EVERY USE., 177, cm, 10/19/21 10:00:00 EST, Height, 108, kg... Start Date: 12/21/21 Status: Ordered amitriptyline 100 mg oral tablet 1 tablet = 100 mg, By Mouth, Daily at bedtime, # 90 tablet, 3 Refills, Maintenance, 06/02/21 11:36:00 EDT, [facility], cm, 06/02/21 11:35:00 EDT, Height, 108, kg, 05/24/21 19:44:00 EDT, Dry Weight Start Date: 06/02/21 Stop Date: 05/28/22 Status: Ordered amLODIPine 10 mg oral tablet 10 mg, 1, tablet, By Mouth, Daily, # 90 tablet, Refills 1, Tot. Refills 1, Maintenance, 05/28/22 11:36:00 EDT, Route to Pharmacy Electronically, [facility], 177, cm, 10/19/21 10:00:00EST, Height, 108, [...] Refills, Maintenance, 09/16/21 9:24:00 EST, ER Tablet, [facility], increase in dose, 177, cm, 06/02/21 11:35:00 EDT, Height, 108, kg, 05/24/21 19:44:00 EDT, Dry Weight Start Date: 09/16/21 Stop Date: 09/11/22 Status: Ordered busPIRone 10 mg oral tablet 15 mg, 1.5, tablet, By Mouth, 2 times a day, # 270 tablet, Refills 3, Tot. Refills 3, Maintenance, 09/16/21 9:24:00 EST, Route to Pharmacy Electronically, [facility], 177, cm, 06/02/21 11:35:00 EDT, Height, 108, kg, 05/24/21 19:44:00 E... Start Date: 09/16/21 Stop Date: 09/11/22 Status: Ordered cetirizine 10 mg oral tablet 1 tablet, By Mouth, Daily, PRN NEEDED FOR ALLERGY SYMPTOMS, # 30 tablet, 5 Refills, [facility], 177, cm, 09/16/21 10:06:00 [...] (SEVERE ALLERGY), # 2 Unknown, 1 Refills, [facility], 177, cm, 06/02/21 11:35:00 EDT, Height, 108, kg, 05/24/21 19:44:00 EDT, Dry Weight Start Date: 09/08/21 Status: Ordered gabapentin 300 mg oral capsule See Instructions, TAKE 3 CAPSULES BY MOUTH IN THE MORNING, 3 CAPSULES EARLY PM AND 4 CAPSULES AT BEDTIME., # 900 capsule, Refills 3, Instructions Replace Required Details, Route to Pharmacy Electronically, [facility], 177, cm, 12/21/21 8:59:... Start Date: [...] 06/02/21 11:36:00 EDT, Route to Pharmacy Electronically, [facility], lower dose, 177, cm, 06/02/21 11:35:00 EDT, Height, 108, kg, 05/24/21 19:44:00... Start Date: 06/02/21 Stop Date: 05/28/22 Status: Ordered Mapap Arthritis Pain 650 mg oral tablet, extended release 2 tablet, By Mouth, Every 8 hours, PRN NEEDED FOR PAIN FOR, for 30 days, # 90 tablet, 9 Refills,Physician Stop 10/17/22 9:00:00 EST, 12/21/21 9:00:00 EST, [facility]., 177, cm, 12/21/21 8:59:00 EST, Height, [...] 56tablet, 0 Refills, Maintenance, 03/15/22 16:28:00 EDT, [facility], may dispense today. cancel previous Rx [...] 01/11/22 15:16:00 EDT, Route to Pharmacy Electronically, [facility], Partial fill uponpatient request if the prescription is for a schedu... Start Date: 01/11/22 Stop Date: 07/10/22 Status: Ordered Ventolin HFA 108 mcg/inh inhalation aerosol with adapter 2 puffs, Inhalation, 4 times a day, PRN NEEDED FOR WHEEZING, # 18 Gm, 6 Refills, 12/28/21 11:00:00 EST, [facility], 177, cm, 12/21/21 8:59:00 EST, Height, 108, kg, 05/24/21 19:44:00 EDT, Dry Weight Start Date: 12/28/21 Status: Ordered Zofran 4 mg oral tablet 1 tablet = 4 mg, By Mouth, Every 8 hours, PRN Nausea & Vomiting, # 12 tablet, 0 Refills, Acute 06/09/22 10:43:00 EDT, 06/09/21 10:43:00 EDT, Tablet, [facility], Partial fill upon patient request if the prescription is for a schedule II... Start Date: 06/09/21 Stop Date: 06/09/22 Status: Ordered zolpidem 10 mg oral tablet 1 tablet, By Mouth, Daily at bedtime, PRN NEEDED FOR INSOMNIA, # 28 tablet, 0 Refills, Acute 04/18/22 16:53:00 EDT, 03/18/22 16:53:00 EDT, [facility], refill when due, 177, cm, [...] mellitus (aunt)(Confirmed) Active FH: 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 (mom)(Confirmed) Active half-way current use 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
--- OUTSIDE RECORDS SUMMARY | 2023-12-11 08:28 | XMS_ITS | Continuity of Care Document ---
Author Name Unknown Organization [facility] Address [address] [place] [address]- Care Team Providers Care Aerial Lineman Name Role Phone Demario Nassar MD Primary Care Physician Encounter [facility] Date(s): 10/04/23 - 11/03/23 [facility] [address] [place], [place] [address] Allergies, Adverse Reactions, Alerts [...] Reason: Other : not documented 2Result Comment: [id number] given w/out incident 3Result Comment: [id number] given w/out incident 4Result Comment: [facility]: [id number] 5Result Comment: [id number] given w/out incident 6Result Comment: [08/17/2018] [facility] [id number] 7Result Comment: [08/31/2017] given w/out incident [facility]: [id number] 8Result Comment: [08/21/2014] given w/o incident...AA 9Result Comment: [07/25/2013] given w/out incident 10Admin Note: vis sheet given. 11Admin Note: historial data 12Result Comment: [id number] 13Admin Note: mass bio 14Admin Note: sanofi [...] 5 Refills, Maintenance, 07/28/23 13:25:00 EDT, [facility], [facility], cm, 05/29/23 18:21:00 EDT, Height, 114.4, kg, 02/14/22 21:57:00 EDT, Dry Weight Start Date: 07/28/23 Status: Ordered Advair HFA 115 mcg / 21 mcg 2 puffs, Inhalation, 2 times a day, AFTER EVERY USE., # 36 Gm, 1 Refills, Maintenance, 07/28/23 13:25:00 EDT, [facility], 90, INHALE 2 PUFFS BY MOUTH TWO TIMES A DAY RINSE MOUTH AFTER EVERYUSE., 167, cm, 05/29/23 18:21:00 EDT, Height, 114.4... Start Date: 07/28/23 Status: Ordered All Day Allergy 10 mg oral tablet 1 tablet, By Mouth, Daily, PRN NEEDED FOR ALLERGY SYMPTOMS, # 30 tablet, 5 Refills, Maintenance,06/20/23 7:39:00 EDT, [facility], 167, cm, 05/29/23 18:21:00 EDT, Height, 114.4, kg, 02/14/22 21:57:00 EDT, Dry Weight Start Date: 06/20/23 Status: Ordered amLODIPine 10 mg oral tablet 10 mg, 1, tablet, By Mouth, Daily, # 90 tablet, Refills 3, Tot. Refills 3, Maintenance, 11/25/22 15:31:00 EST, Route to Pharmacy Electronically, [facility], 177, cm, 12/21/21 8:59:00 EST, Height, 114.4, kg, 02/14/22 21:57:00 EDT, Dry W... Start Date: 11/25/22 Stop Date: 11/20/23 Status: Ordered atorvastatin 40 mg oral tablet 1 tablet, By Mouth, Daily, # 90 tablet, 1 Refills, Maintenance, 02/03/23 16:11:00 EDT, [facility], 167, cm, 12/05/22 10:53:00 EST, Height, 114.4, [...] 05/29/23 18:09:00 EDT, [facility], replaces spironolactone, 167, cm, 05/29/23 [...] Unknown, 1 Refills, Maintenance, 05/12/23 12:41:00 EDT, [facility], [facility], cm, 12/05/22 10:53:00 EST, Height, 114.4, kg, 02/14/22 21:57:00 EDT,... Start Date: 05/12/23 Status: Ordered gabapentin 300 mg oral capsule See Instructions, TAKE 3 CAPSULES BY MOUTH IN THE MORNING, 3 CAPSULES EARLY PM AND 4 CAPSULES AT BEDTIME., # 900 capsule, Refills 3, Maintenance, 12/23/22 13:41:00 EST, Instructions Replace Required Details, [facility] to [facility], [facility] Start Date: 12/23/22 Status: Ordered gloves, large gloves, large, See Instructions, # 50 each, Refills 11, Tot. Refills 11, Maintenance, use when handling soiled linen Dx: N39.4, 03/20/20 17:02:00 EDT, Supply Start Date: 03/20/20 Status: Ordered losartan 100 mg oral tablet 1 tablet = 100 mg, By Mouth, Daily, # 90 tablet, 4 Refills, Maintenance, 05/29/23 18:09:00 EDT, Tablet, [facility]., increase in dose, 167, cm, 05/29/23 [...] 56 tablet, 0 Refills, Maintenance,11/02/23 13:25:00 EST, [facility]., 167, cm, 05/29/23 18:21:00 EDT, Height, 114.4, [...] 5 Refills, Maintenance, 05/03/23 18:41:00 EDT, [facility], 167, cm, 12/05/22 10:53:00 EST, Height, [...] Team Personnel Name: Ermelinda Rice RN Position: [facility] RN Member Role: Primary Care Nurse Name: Tri Sebastian RN Position: [facility] RN Member Role: Primary Care Nurse Name: Demario Nassar MD Position: [facility] Physician - Primary Care Member Role: PCP Address: Address: [address] [place] [address] Adult [place] [address]- Care Team Related Persons Name: EPIFANIO STYLES Address: home [address] [place] [id number] Name: DEUCE SEE
--- OUTSIDE RECORDS SUMMARY | 2023-12-11 08:28 | XMS_ITS | Continuity of Care Document ---
Author Name Unknown Organization [facility] Address [address] [place] [address]- Care Team Providers Care Cuff Folder Name Role Phone Demario Nassar MD Primary Care Physician Encounter [facility] Date(s): 07/19/22 - 07/19/[address] [address] Discharge Disposition: A-D/C Home Attending Physician: Nabil Mistry MD Admitting Physician: Nabil Mistry MD Referring Physician: Nabil Mistry MD Allergies, Adverse Reactions, Alerts Substance Reaction [...] (oldterm) 12 10/08/07 Give n 1Result Comment: [id number] given w/out incident 2Result Comment: [facility]: [id number] 3Result Comment: [id number] given w/out incident 4Result Comment: [08/17/2018] [facility] [id number] 5Result Comment: [08/31/2017] given w/out incident [facility]: [id number] 6Result Comment: [08/21/2014] given w/o incident...AA 7Result Comment: [07/25/2013] given w/out incident 8Admin Note: vis sheet given. 9Admin Note: historial data 10Result Comment: [id number] 11Admin Note: mass bio 12Admin Note: sanofi [...] EVERY USE., # 36 Gm, 3 Refills, [facility], 90, INHALE 2 PUFFS BY MOUTH TWO TIMES A DAY RINSE MOUTH AFTER EVERY USE., 177, cm, 10/19/21 10:00:00 EST, Height, 108, kg... Start Date: 12/21/21 Status: Ordered amitriptyline 100 mg oral tablet 0.5 tablet = 50 mg, By Mouth, Daily at bedtime, # 45 tablet, 3 Refills, Maintenance, 06/02/21 11:36:00 EDT, Tablet, [facility]., 177, cm, 06/02/21 11:35:00 EDT, Height, 108, kg, 05/24/21 19:44:00 EDT, Dry Weight Start Date: 06/02/21 Stop Date: 05/28/22 Status: Ordered amLODIPine 10 mg oral tablet 10 mg, 1, tablet, By Mouth, Daily, # 90 tablet, Refills 1, Tot. Refills 1, Maintenance, 05/28/22 11:36:00 EDT, Route to Pharmacy Electronically, [facility], 177, cm, 10/19/21 10:00:00EST, Height, 108, kg, 05/24/21 19:44:00 EDT, Dry We... Start Date: 05/28/22 Stop Date: 11/24/22 Status: Ordered amLODIPine 10 mg oral tablet See Instructions, TAKE 1 TABLET BY MOUTH DAILY, # 90 tablet, 3 Refills, [facility], 177, cm, 12/21/21 8:59:00 EST, [...] Refills, Maintenance, 09/16/21 9:24:00 EST, ER Tablet, [facility]., increase in dose, 177, cm, 06/02/21 11:35:00 EDT, Height, 108, kg, 05/24/21 19:44:00 EDT, Dry Weight Start Date: 09/16/21 Stop Date: 09/11/22 Status: Ordered busPIRone 10 mg oral tablet 15 mg, 1.5, tablet, By Mouth, 2 times a day, # 270 tablet, Refills 3, Tot. Refills 3, Maintenance, 09/16/21 9:24:00 EST, Route to Pharmacy Electronically, [facility], 177, cm, 06/02/21 11:35:00 EDT, Height, 108, kg, 05/24/21 19:44:00 E... Start Date: 09/16/21 Stop Date: 09/11/22 Status: Ordered cetirizine 10 mg oral tablet 1 tablet, By Mouth, Daily, PRN NEEDED FOR ALLERGY SYMPTOMS, # 30 tablet, 5 Refills, 04/16/22 9:35:00 EDT, [facility], 177, cm, 12/21/21 8:59:00 EST, Height, 114.4, kg, 02/14/22 21:57:00 EDT, Dry Weight Start Date: 04/16/22 Status: Ordered chlorthalidone 25 mg oral tablet 25 mg, 1, tablet, By Mouth, Daily, # 30 tablet, Refills 1, Tot. Refills 1, Maintenance, 04/29/22 14:31:00 EDT, Route to Pharmacy Electronically, [facility], replaces spironolactone, 177, cm, 12/21/21 8:59:00 [...] (SEVERE ALLERGY), # 2 Unknown, 1 Refills, [facility], 177, cm, 06/02/21 11:35:00 EDT, Height, 108, kg, 05/24/21 19:44:00 EDT, Dry Weight Start Date: 09/08/21 Status: Ordered gabapentin 300 mg oral capsule See Instructions, TAKE 3 CAPSULES BY MOUTH IN THE MORNING, 2 CAPSULES EARLY PM AND 3 CAPSULES AT BEDTIME., # 900 capsule, Refills 3, Instructions Replace Required Details, Route to Pharmacy Electronically, [facility], 177, cm, 12/21/21 8:59:... Start [...] 4 Refills, Maintenance, 03/31/22 15:03:00 EDT, Tablet, [facility]., increase in dose, 177, cm, 12/21/21 8:59:00 EST, Height, 114.4, kg,02/14/22 21:57:00 EDT, Dry Weight Start Date: 03/31/22 Stop Date: 06/24/23 Status: Ordered Mapap Arthritis Pain 650 mg oral tablet, extended release 2 tablet, By Mouth, Every 8 hours, PRN NEEDED FOR PAIN FOR, for 30 days, # 90 tablet, 9 Refills,Physician Stop 10/17/22 9:00:00 EST, 12/21/21 9:00:00 EST, [facility]., 177, cm, 12/21/21 8:59:00 EST, Height, 108, [...] 56 tablet, 0 Refills, Maintenance,07/01/22 17:39:00 EDT, [facility], do not refill earlier than 07/04/22, [...] Gm, 5 Refills, Maintenance, 07/08/22 10:48:00 EDT, [facility], 177, cm, 12/21/21 8:59:00 EST, Height, 114.4, kg, 02/14/22 21:57:00 EDT, Dry Weight Start Date: 07/08/22 Status: Ordered Problem List Condition Effective Dates [...] mellitus (aunt)(Confirmed) Active FH: 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 (mom)(Confirmed) Active [facility] current use 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 to oldest [Reference Range]: 1 2 3 Oxygen Saturation [94-100 %] 97 % (07/19/22 12:10 PM) 95 % (07/19/22 12:00 PM) 98 % (07/19/22 11:50 AM) Pulse Rate [55-90 bpm] 76 bpm (07/19/22 10:36 AM) Blood Pressure [90-138/55-84 mm Hg] 119/66mm Hg (07/19/22 12:10 PM) 121/63mm Hg (07/19/22 12:00 PM) 102/57mm Hg (07/19/22 11:50 AM) Respiratory Rate [16-30 br/min] 19 br/min (07/19/22 12:10 PM) 16 br/min (07/19/22 12:00 PM) 17 br/min (07/19/22 11:50 AM) Temperature [96.8-100.4 DegF] 98 DegF (07/19/22 11:30 AM) 97.9 DegF (07/19/22 10:36 AM) Liters per Minute 6 L/min (07/19/22 11:30 AM) Mode of Delivery (Oxygen) Room air (07/19/22 11:35 AM) Simple face mask (07/19/22 11:30 AM) Room air (07/19/22 10:36 AM) Blood pressure sites Arm, right (07/19/22 10:36 AM) Temperature Route Temporal (07/19/22 11:30 AM) Temporal (07/19/22 10:36 AM) Dry Weight Obtained Via Patient/family s tated (07/19/22 10:36 AM) Social History Social History Type Response Smoking Status 5-9 cigarettes (betw een 1/4 to 1/2 pack)/day in last 30 days; Type: Cigarettes entered on: 02/14/22 Sex Care Team Personnel Name: Demario Nassar MD Address: [address] [place] [address] Adult [facility] Medicine [address]
--- OUTSIDE RECORDS SUMMARY | 2023-12-11 08:28 | XMS_ITS | Continuity of Care Document ---
Author Name Unknown Organization [facility] Address [address] [place] [address], [address] [place] [address]- Care Team Providers Care Breaker Layer Name Role Phone Cesario SCHULER, Demario Primary Care Physician Encounter [facility] Date(s): 11/19/19 - 11/29/[address] [facility] [address] [place] [address]- Attending Physician: Dario Benavidez Admitting Physician: AdmtrDario Referring Physician: AdmtrDario Allergies, Adverse Reactions, Alerts Substance Reaction Severity [...] (oldterm) 10 10/08/07 Give n 1Result Comment: [id number] given w/out incident 2Result Comment: [08/17/2018] [facility] [id number] 3Result Comment: [08/31/2017] given w/out incident [facility]: [id number] 4Result Comment: [08/21/2014] given w/o incident...AA 5Result Comment: [07/25/2013] given w/out incident 6Admin Note: vis sheet given. 7Admin Note: historial data 8Result Comment: [id number] 9Admin Note: mass bio 10Admin Note: sanofi [...] 04/23/19 10:58:48 EDT, Route to Pharmacy Electronically, [id number], [facility] Start Date: 04/23/19 Stop Date: 04/17/20 [...] 04/15/19 17:12:39 EDT, Route to Pharmacy Electronically, [id number], [facility] Start Date: 04/15/19 Stop Date: 04/09/20 [...] Maintenance, 01/22/1911:29:30 EDT, Route to Pharmacy Electronically, [id number], [facility], Pt howie stop cymbalta Start Date: [...] 05/30/19 13:41:08 EDT, Route to Pharmacy Electronically, [id number], [facility] Start Date: 05/30/19 Stop Date: 05/24/20 Status: Ordered losartan 50 mg oral tablet 50 mg, 1, tablet, By Mouth, Daily, # 90 tablet, Refills 3, Tot. Refills 3, Maintenance, 01/22/19 11:26:31 EDT, Route to Pharmacy Electronically, [id number], [facility], lower dose Start Date: 01/22/19 Stop Date: 01/17/20 Status: Ordered Meclizine By Mouth, 3 times a day, 0 Refills, Maintenance, 12/14/18 15:25:26 EST Start Date: 12/14/18 Status: Ordered nystatin topical 291334 u/gm powder See Instructions, APPLY TOPICALLY TO AFFECTED AREA TWO TIMES A DAY FOR 14 DAYS, # 30 Gm, 0 Refills,[facility]ute, [facility], 14, APPLY TOPICALLY TO AFFECTED AREA TWO [...] 10:28:00 EST, 11/25/19 10:28:00 EST, ER Tablet, [facility]... 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
--- OUTSIDE RECORDS SUMMARY | 2023-12-11 08:28 | XMS_ITS | Continuity of Care Document ---
Author Name Unknown Organization [facility] Address [address] [place] [address]- Care Team Providers Care Cardiovascular Specialist Name Role Phone Cesario SCHULER, Demario Primary Care Physician [facility] Date[facility]s): 06/08/20 - 07/08/20 [facility] [address] [place] [address]- [facility] Allergies, Adverse Reactions, Alerts [...] (oldterm) 10 10/08/07 Give n 1Result Comment: [id number] given w/out incident 2Result Comment: [08/17/2018] [facility] [id number] 3Result Comment: [08/31/2017] given w/out incident [facility]: [id number] 4Result Comment: [08/21/2014] given w/o incident...AA 5Result Comment: [07/25/2013] given w/out incident 6Admin Note: vis sheet given. 7Admin Note: historial data 8Result Comment: [id number] 9Admin Note: mass bio 10Admin Note: sanofi Medications acetaminophen 650 mg oral tablet, extended release 2 tablet = 1,300 mg, By Mouth, Every 8 hours, PRN as needed for pain, for 30 days, # 90 tablet, 5 Refills, Acute 10/18/20 17:11:00 EST, 04/21/20 17:11:00 EDT, ER Tablet, [facility] 167, cm, 01/14/20 9:59:00 EDT, Height Start Date: 04/21/20 Stop Date: 10/18/20 Status: Ordered Advair HFA 115 mcg / 21 mcg 2 puffs, Inhalation, 2 times a day, Dx: COPD rinse mouth and throat after use, # 3 each, 3 Refills,Maintenance, 04/16/20 10:16:00 EDT, Aerosol, [facility]., replaces Rx for symbicort not covered by her insurance, 2 puffs Inhalation 2... Start Date: 04/16/20 Stop Date: 04/11/21 Status: Ordered amitriptyline 100 mg oral tablet 1.5 tablet = 150 mg, By Mouth, Daily at bedtime, # 135 tablet, 3 Refills, Maintenance, 04/16/20 10:16:00 EDT, Tablet, [facility] 167, cm, 01/14/20 9:59:00 EDT, Height Start Date: 04/16/20 Stop Date: 04/11/21 Status: Ordered amLODIPine 10 mg oral tablet 10 mg, 1, tablet, By Mouth, Daily, # 90 tablet, Refills 3, Tot. Refills 3, Maintenance, 04/16/20 10:16:00 EDT, Route to Pharmacy Electronically, [facility] 167, cm, 01/14/20 9:59:00 EDT, Height [...] 3 Refills, Maintenance, 05/11/20 9:45:00 EDT, Tablet, [facility], 167, cm, 01/14/20 9:59:00 EDT, [...] 07/07/20 12:31:00 EDT, Route to Pharmacy Electronically, [facility], 167, cm, 209:59:00 EDT, Height Start Date: 07/07/20 Stop Date: 07/02/21 Status: Ordered chlorthalidone 25 mg oral tablet 25 mg, 1, tablet, By Mouth, Daily, # 90 tablet, Refills 3, Tot. Refills 3, Maintenance, 04/16/20 10:15:00 EDT, Route to Pharmacy Electronically, [facility], replaces hydrochlorothiazide, 167, cm, 01/14/20 [...] kit, 1 Refills, Soft Stop,04/16/20 10:16:00 EDT, [facility], 167, cm, 01/14/20 9:59:00 EDT, Height Start Date: 04/16/20 Status: Ordered FLUoxetine 20 mg oral capsule 3, capsule, By Mouth, Daily, # 270 capsule, Refills 3, Tot. Refills 0, Maintenance, 02/21/20 15:09:00 EDT, Route to Pharmacy Electronically, [facility], 167, cm, 01/14/20 9:59:00 EDT, [...] 01/14/20 10:17:00 EDT, Route to Pharmacy Electronically, [facility], lower dose, 167, cm, 01/14/20 9:59:00 EDT, Height Start Date: 01/14/20 Stop Date: 01/08/21 Status: Ordered Meclizine By Mouth, 3 times a day, 0 Refills, Maintenance, 12/14/18 15:25:26 EST Start Date: 12/14/18 Status: Ordered nystatin topical 946515 u/gm powder See Instructions, APPLY TOPICALLY TO AFFECTED AREA TWO TIMES A DAY FOR 14 DAYS, # 30 Gm, 0 Refills,Acute, [facility], 14, APPLY TOPICALLY TO AFFECTED [...] 12:32:00 EDT, 07/07/20 12:32:00 EDT, ER Tablet, [facility]... Start Date: 07/07/20 Stop Date: [...] Refills, Soft Stop, 01/14/20 10:16:00 EDT, Aerosol, [facility] replaces proair, 167, cm, 01/14/20 9:59:00 EDT, Height Start Date: 01/14/20 Stop Date: 07/12/20 Status: Ordered zolpidem 10 mg oral tablet 1 tablet = 10 mg, By Mouth, Daily at bedtime, PRN as needed for insomnia, # 28 tablet, 0 Refills, Soft Stop, 06/23/20 16:30:00 EDT, [facility] 167, cm, 01/14/20 9:59:00 EDT, [...]
--- OUTSIDE RECORDS SUMMARY | 2023-12-11 08:28 | XMS_ITS | Continuity of Care Document ---
Author Name Unknown Organization [facility] Address [address] [place] [address]- Care Team Providers Care Buttonholer Name Role Phone Demario Nassar MD Primary Care Physician Encounter [facility] Date(s): 12/21/21 - 12/28/21 [facility] [address] [place], [place] [address] Attending Physician: Demario Nassar MD Allergies, [...] (oldterm) 12 10/08/07 Give n 1Result Comment: [id number] given w/out incident 2Result Comment: [facility]: [id number] 3Result Comment: [id number] given w/out incident 4Result Comment: [08/17/2018] [facility] [id number] 5Result Comment: [08/31/2017] given w/out incident [facility]: [id number] 6Result Comment: [08/21/2014] given w/o incident...AA 7Result Comment: [07/25/2013] given w/out incident 8Admin Note: vis sheet given. 9Admin Note: historial data 10Result Comment: [id number] 11Admin Note: mass bio 12Admin Note: sanofi [...] each, 1 Refills,Maintenance, 10/19/21 14:37:00 EST, [facility] for symbicort not covered by her insurance, 2 puffs Inhalation 2... Start Date: 10/19/21 Stop Date: 04/17/22 Status: Ordered Advair HFA 115 mcg / 21 mcg See Instructions, INHALE 2 PUFFS BY MOUTH TWO TIMES A DAY RINSE MOUTH AFTER EVERY USE., # 36 Gm, 3 Refills, [facility], 90, INHALE 2 PUFFS BY MOUTH TWO TIMES A DAY RINSE MOUTH AFTER EVERY USE., 177, cm, 10/19/21 10:00:00 EST, Height, 108, kg... Start Date: 12/21/21 Status: Ordered amitriptyline 100 mg oral tablet 1.5 tablet = 150 mg, By Mouth, Daily at bedtime, # 135 tablet, 3 Refills, Maintenance, 06/02/21 11:36:00 EDT, Tablet, [facility]., 177, cm, 06/02/21 11:35:00 EDT, Height, 108, kg, 05/24/21 19:44:00 EDT, Dry Weight Start Date: 06/02/21 Stop Date: 05/28/22 Status: Ordered amLODIPine 10 mg oral tablet 10 mg, 1, tablet, By Mouth, Daily, for 90 days, # 90 tablet, Refills 3, Tot. Refills 3, Hard Stop 05/28/22 11:36:00 EDT, 06/02/21 11:36:00 EDT, Route to Pharmacy Electronically, [facility], 177, cm, 06/02/21 11:35:00 EDT, Height, 108,... Start Date: 06/02/21 Stop Date: 05/28/22 Status: Ordered amLODIPine 10 mg oral tablet 10 mg, 1, tablet, By Mouth, Daily, # 90 tablet, Refills 1, Tot. Refills 1, Maintenance, 05/28/22 11:36:00 EDT, Route to Pharmacy Electronically, [facility], 177, cm, 10/19/21 10:00:00EST, Height, 108, kg, 05/24/21 19:44:00 EDT, Dry We... Start Date: 05/28/22 Stop Date: 11/24/22 Status: Ordered atorvastatin 20 mg oral tablet 1 tablet = 20 mg, By Mouth, Daily, # 90 tablet, 1 Refills, Maintenance, 07/26/21 13:55:00 EDT, Tablet, [facility]., 177, cm, 06/02/21 11:35:00 EDT, [...] Refills, Maintenance, 09/16/21 9:24:00 EST, ER Tablet, [facility], increase in dose, 177, cm, 06/02/21 11:35:00 EDT, Height, 108, kg, 05/24/21 19:44:00 EDT, Dry Weight Start Date: 09/16/21 Stop Date: 09/11/22 Status: Ordered busPIRone 10 mg oral tablet 10 mg, 1, tablet, By Mouth, 2 times a day, # 180 tablet, Refills 3, Tot. Refills 3, Maintenance, 09/16/21 9:24:00 EST, Route to Pharmacy Electronically, [facility], 177, cm, 06/02/21 11:35:00 EDT, Height, 108, kg, 05/24/21 19:44:00 EDT... Start Date: 09/16/21 Stop Date: 09/11/22 Status: Ordered cetirizine 10 mg oral tablet 1 tablet, By Mouth, Daily, PRN NEEDED FOR ALLERGY SYMPTOMS, # 30 tablet, 5 Refills, [facility], 177, cm, 09/16/21 10:06:00 EST, Height, [...] (SEVERE ALLERGY), # 2 Unknown, 1 Refills, [facility], 177, cm, 06/02/21 11:35:00 EDT, Height, 108, kg, 05/24/21 19:44:00 EDT, Dry Weight Start Date: 09/08/21 Status: Ordered FLUoxetine 20 mg oral capsule 3, capsule, By Mouth, Daily, for 90 days, # 270 capsule, Refills 0, Physician Stop, [facility], 177, cm, 10/19/21 10:00:00 EST, Height, 108, [...] 06/02/21 11:36:00 EDT, Route to Pharmacy Electronically, [facility], lower dose, 177, cm, 06/02/21 11:35:00 EDT, Height, 108, kg, 05/24/21 19:44:00... Start Date: 06/02/21 Stop Date: 05/28/22 Status: Ordered Mapap Arthritis Pain 650 mg oral tablet, extended release 2 tablet, By Mouth, Every 8 hours, PRN NEEDED FOR PAIN FOR, for 30 days, # 90 tablet, 9 Refills,Physician Stop 10/17/22 9:00:00 EST, 12/21/21 9:00:00 EST, [facility], 177, cm, 12/21/21 8:59:00 EST, [...] 56tablet, 0 Refills, Maintenance, 12/21/21 7:53:00 EST, [facility]., 177, cm, 10/19/2110:00:00 EST, Height, 108, [...] 12/21/21 9:01:00 EST, Route to Pharmacy Electronically, [facility], Partial fill upon patient request if the prescription is for a schedul... Start Date: 12/21/21 Stop Date: 12/16/22 Status: Ordered Ventolin HFA 108 mcg/inh inhalation aerosol with adapter 2 puffs, Inhalation, 4 times a day, PRN NEEDED FOR WHEEZING, # 18 Gm, 6 Refills, 12/28/21 11:00:00 EST, [facility]., 177, cm, 12/21/21 8:59:00 EST, Height, 108, kg, 05/24/21 19:44:00 EDT, Dry Weight Start Date: 12/28/21 Status: Ordered Zofran 4 mg oral tablet 1 tablet = 4 mg, By Mouth, Every 8 hours, PRN Nausea & Vomiting, # 12 tablet, 0 Refills, Acute 06/09/22 10:43:00 EDT, 06/09/21 10:43:00 EDT, Tablet, [facility]., Partial fill upon patient request if the prescription is for a schedule II... Start Date: 06/09/21 Stop Date: 06/09/22 Status: Ordered zolpidem 10 mg oral tablet 1 tablet, By Mouth, Daily at bedtime, PRN NEEDED FOR INSOMNIA, # 28 tablet, 0 Refills, Acute 01/18/22 7:52:00 EDT, 12/21/21 7:52:00 EST, [facility], refill when due, 177, cm, 10/19/21 [...] mellitus (aunt)(Confirmed) Active FH: 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 (mom)(Confirmed) Active [facility] current use 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 [Reference Range]: 1 2 Height 177 cm (12/21/21 8:59 AM) 177 cm (12/21/21 8:51 AM) Weight 112.2 kg (12/21/21 8:51 AM) Oxygen Saturation [94-100 %] 96 % (12/21/21 8:51 AM) Pulse Rate [55-90 bpm] 74 bpm (12/21/21 8:51 AM) Body Mass Index [18.5-24.99] 35.81 *>HHI* (12/21/21 8:51 AM) Blood Pressure [90-138/55-84 mm Hg] 124/ 68mm Hg (12/21/21 8:59 AM) 142/84mm Hg *H* (12/21/21 8:51 AM) Temperature [96.8-100.4 DegF] 97.3 DegF (12/21/21 8:51 AM) Mode of Delivery (Oxygen) Room air (12/21/21 8:51 AM) Blood pressure sites Arm, left (12/21/21 8:51 AM) Temperature Route Temporal (12/21/21 8:51 AM) Social History Social History Type Response Smoking Status Former smoker entered on: 12/04/14 Sex
--- OUTSIDE RECORDS SUMMARY | 2023-12-11 08:28 | XMS_ITS | Continuity of Care Document ---
Author Name Unknown Organization [facility] Address [address] [place] [address]- Care Team Providers Care Audit Spec Name Role Phone Demario Nassar MD Primary Care Physician Encounter [facility] Date(s): 07/28/21 - 08/27/21 [facility] [address] [place], [place] [address] Allergies, Adverse Reactions, Alerts Substance Reaction Severity [...] (oldterm) 11 10/08/07 Give n 1Result Comment: [facility]: [id number] 2Result Comment: [id number] given w/out incident 3Result Comment: [08/17/2018] [facility] [id number] 4Result Comment: [08/31/2017] given w/out incident [facility]: [id number] 5Result Comment: [08/21/2014] given w/o incident...AA 6Result Comment: [07/25/2013] given w/out incident 7Admin Note: vis sheet given. 8Admin Note: historial data 9Result Comment: [id number] 10Admin Note: mass bio 11Admin Note: sanofi [...] 3 Refills,Maintenance, 05/28/21 18:23:00 EDT, Aerosol, [id number], replaces Rx for symbicort not covered by her insurance, 2 puffs Inhalation 2 times a... Start Date: 05/28/21 Stop Date: 05/23/22 Status: Ordered albuterol 0.083% inhalation solution 3 mL = 2.5 mg, Inhalation, Every 6 hours, PRN for wheezing, Dx: COPD J44.9, # 60 each, 2 Refills, Maintenance, 06/02/21 11:29:00 EDT, [facility] Partial fill upon patient request if the prescription is for a schedule II opio... Start Date: 06/02/21 Status: Ordered amitriptyline 100 mg oral tablet 1.5 tablet = 150 mg, By Mouth, Daily at bedtime, # 135 tablet, 3 Refills, Maintenance, 06/02/21 11:36:00 EDT, Tablet, [facility], 177, cm, 06/02/21 11:35:00 EDT, Height, 108, kg, 05/24/21 19:44:00 EDT, Dry Weight Start Date: 06/02/21 Stop Date: 05/28/22 Status: Ordered amLODIPine 10 mg oral tablet 10 mg, 1, tablet, By Mouth, Daily, # 90 tablet, Refills 3, Tot. Refills 3, Maintenance, 06/02/21 11:36:00 EDT, Route to Pharmacy Electronically, [facility], 177, cm, 06/02/21 11:35:00EDT, Height, 108, kg, 05/24/21 19:44:00 EDT, Dry We... Start Date: 06/02/21 Stop Date: 05/28/22 Status: Ordered atorvastatin 20 mg oral tablet 1 tablet = 20 mg, By Mouth, Daily, # 90 tablet, 1 Refills, Maintenance, 07/26/21 13:55:00 EDT, Tablet, [facility], 177, cm, 06/02/21 11:35:00 EDT, [...] Maintenance, 09/29/20 14:40:00 EST, ER Tablet, [facility], increase in dose, 167, cm, 01/14/20 9:59:00 EDT, Height Start Date: 09/29/20 Stop Date: 09/24/21 Status: Ordered busPIRone 10 mg oral tablet 10 mg, 1, tablet, By Mouth, 2 times a day, # 180 tablet, Refills 3, Tot. Refills 3, Maintenance, 07/07/20 12:31:00 EDT, Route to Pharmacy Electronically, [facility], 167, cm, 209:59:00 EDT, Height Start Date: 07/07/20 Stop Date: 07/02/21 Status: Ordered cetirizine 10 mg oral tablet 1 tablet = 10 mg, By Mouth, Daily, PRN for allergy symptoms, # 30 tablet, 2 Refills, Maintenance, 06/01/21 14:45:00 EDT, Tablet, [facility], 177, cm, 05/26/21 12:02:00 EDT, Height, [...] 1 Refills, Soft Stop,04/16/20 10:16:00 EDT, [facility], 167, cm, 01/14/20 9:59:00 EDT, Height Start Date: 04/16/20 Status: Ordered FLUoxetine 20 mg oral capsule 3, capsule, By Mouth, Daily, # 270 capsule, Refills 0, Tot. Refills 0, Maintenance, 06/01/21 17:20:00 EDT, Route to Pharmacy Electronically, [facility], 177, cm, 05/26/21 12:02:00 EDT, [...] 11:36:00 EDT, Route to Pharmacy Electronically, [facility], lower dose, 177, cm, 06/02/21 11:35:00 EDT, Height, 108, kg, 05/24/21 19:44:00... Start Date: 06/02/21 Stop Date: 05/28/22 Status: Ordered Mapap Arthritis Pain 650 mg oral tablet, extended release See Instructions, TAKE 2 TABLETS BY MOUTH EVERY 8 HOURS NEEDED FOR PAIN FOR 30 DAYS, # 90 tablet, 5 Refills, Acute, [facility], 167, cm, 01/14/20 9:59:00 EDT, Height [...] 0 Refills, Maintenance, 08/02/21 15:57:00 EDT, [facility], Pt requests an early refill for [...] 11:01:00 EST, 06/22/21 11:01:00 EDT, Aerosol, [facility], replaces proair, 177, cm, 06/02/21 11:35:00 EDT, Height, 108, kg, 2... Start Date: 06/22/21 Stop Date: 12/19/21 Status: Ordered Zofran 4 mg oral tablet 1 tablet = 4 mg, By Mouth, Every 8 hours, PRN Nausea & Vomiting, # 12 tablet, 0 Refills, Acute 06/09/22 10:43:00 EDT, 06/09/21 10:43:00 EDT, Tablet, [facility], Partial fill upon patient request if the prescription is for a schedule II... Start Date: 06/09/21 Stop Date: 06/09/22 Status: Ordered zolpidem 10 mg oral tablet 1 tablet, By Mouth, Daily at bedtime, PRN NEEDED FOR INSOMNIA, # 28 tablet, 0 Refills, Acute 08/30/21 15:58:00 EDT, 08/02/21 15:57:00 EDT, [facility], Pt requests an early refill for travel, [...] mellitus (aunt)(Confirmed) Active FH: 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 (mom)(Confirmed) Active [facility] current use 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
--- OUTSIDE RECORDS SUMMARY | 2023-12-11 08:28 | XMS_ITS | Continuity of Care Document ---
Author Name Unknown Organization [facility] Address [address] [place] [address]- Care Team Providers Care Polisher Implant Name Role Phone Demario Nassar MD Primary Care Physician Encounter [facility] [place] Date(s): 02/18/21 - 03/20/21 [facility] [address] [place], [place] [address] Allergies, Adverse Reactions, Alerts [...] n 1Result Comment: [facility]: [id number] 2Result Comment: [id number] given w/out incident 3Result Comment: [08/17/2018] [facility] [id number] 4Result Comment: [08/31/2017] given w/out incident [facility]: [id number] 5Result Comment: [08/21/2014] given w/o incident...AA 6Result Comment: [07/25/2013] given w/out incident 7Admin Note: vis sheet given. 8Admin Note: historial data 9Result Comment: [id number] 10Admin Note: mass bio 11Admin Note: sanofi [...] each, 3 Refills,Maintenance, 04/16/20 10:16:00 EDT, Aerosol, [facility], replaces Rx for symbicort not covered by her insurance, 2 puffs Inhalation 2... Start Date: 04/16/20 Stop Date: 04/11/21 Status: Ordered amitriptyline 100 mg oral tablet 1.5 tablet = 150 mg, By Mouth, Daily at bedtime, # 135 tablet, 3 Refills, Maintenance, 04/16/20 10:16:00 EDT, Tablet, [facility] 167, cm, 01/14/20 9:59:00 EDT, Height Start Date: 04/16/20 Stop Date: 04/11/21 Status: Ordered amLODIPine 10 mg oral tablet 10 mg, 1, tablet, By Mouth, Daily, # 90 tablet, Refills 3, Tot. Refills 3, Maintenance, 04/16/20 10:16:00 EDT, [facility] to [facility] Electronically, [facility] [...] 3 Refills, Maintenance, 05/11/20 9:45:00 EDT, Tablet, [facility] 167, cm, 01/14/20 9:59:00 EDT, Height Start [...] Refills, Maintenance, 09/29/20 14:40:00 EST, ER Tablet, [facility], increase in dose, 167, cm, 01/14/20 9:59:00 EDT, Height Start Date: 09/29/20 Stop Date: 09/24/21 Status: Ordered busPIRone 10 mg oral tablet 10 mg, 1, tablet, By Mouth, 2 times a day, # 180 tablet, Refills 3, Tot. Refills 3, Maintenance, 07/07/20 12:31:00 EDT, Route to Pharmacy Electronically, [facility] 167, cm, 209:59:00 EDT, Height Start Date: 07/07/20 Stop Date: 07/02/21 Status: Ordered cetirizine 10 mg oral tablet 1 tablet = 10 mg, By Mouth, Daily, PRN for allergy symptoms, # 30 tablet, 8 Refills, Maintenance, 09/01/20 17:26:00 EST, Tablet, [facility], 167, cm, 01/14/20 9:59:00 EDT, Height Start Date: 09/01/20 Stop Date: 05/29/21 Status: Ordered chlorthalidone 25 mg oral tablet 25 mg, 1, tablet, By Mouth, Daily, # 90 tablet, Refills 3, Tot. Refills 3, Maintenance, 04/16/20 10:15:00 EDT, Route to Pharmacy Electronically, [facility], replaces hydrochlorothiazide, 167, cm, 01/14/20 9:59:00 EDT, [...] kit, 1 Refills, Soft Stop,04/16/20 10:16:00 EDT, [facility], 167, cm, 01/14/20 9:59:00 EDT, Height Start Date: 04/16/20 Status: Ordered FLUoxetine 20 mg oral capsule 3, capsule, By Mouth, Daily, # 270 capsule, Refills 3, Tot. Refills 0, Maintenance, 02/21/20 15:09:00 EDT, [facility], 167, cm, 01/14/20 9:59:00 EDT, Height [...] Start Date: 12/14/18 Status: Ordered nystatin topical 119693 u/gm powder See Instructions, APPLY TOPICALLY TO AFFECTED AREA TWO TIMES A DAY FOR 14 DAYS, # 30 Gm, 1 Refills,Physician Stop 04/16/21 17:58:00 EDT, 03/16/21 17:58:00 EDT, [facility], 14, APPLY TOPICALLY TO AFFECTED AREA TWO TIMES A DAY FOR 14 DA... Start Date: 03/16/21 Stop Date: 04/16/21 Status: Ordered OxyCONTIN 15 mg oral tablet, extended release See Instructions, TAKE 1 TABLET BY MOUTH EVERY 12 HOURS NEEDED FOR SEVERE PAIN FOR 28 DAYS, # 56tablet, 0 Refills, Maintenance, 03/18/21 17:43:00 EDT, [facility], 167, cm, [...] 08/02/21 17:29:00 EDT, 02/03/21 17:29:00 EDT, [facility]air, 167, cm, 01/14/20 9:59:00 EDT, Height Start Date: 02/03/21 Stop Date: 08/02/21 Status: Ordered zolpidem 10 mg oral tablet 1 tablet = 10 mg, By Mouth, Daily at bedtime, PRN as needed for insomnia, # 28 tablet, 0 Refills, Soft Stop, 03/09/21 17:15:00 EDT, [facility] 167, cm, 01/14/20 9:59:00 EDT, Height Start Date: 03/09/21 Stop Date: 04/06/21 Status: Ordered Problem List Condition Effective Dates [...]
--- OUTSIDE RECORDS SUMMARY | 2023-12-11 08:28 | XMS_ITS | Continuity of Care Document ---
Author Name Unknown Organization [facility] Address [address] [place] [address]- Care Team Providers Care Seasoner Name Role Phone Cesario SCHULER, Demario Primary Care Physician Encounter [facility] [place] Date(s): 03/02/22 - 04/01/22 [facility] [address] [place], [place] [address] Allergies, Adverse Reactions, [...] (oldterm) 12 10/08/07 Give n 1Result Comment: [id number] given w/out incident 2Result Comment: [facility]: [id number] 3Result Comment: [id number] given w/out incident 4Result Comment: [08/17/2018] [facility] [id number] 5Result Comment: [08/31/2017] given w/out incident [facility][note 3]: [id number] 6Result Comment: [08/21/2014] given w/o incident...AA 7Result Comment: [07/25/2013] given w/out incident 8Admin Note: vis sheet given. 9Admin Note: historial data 10Result Comment: [id number] 11Admin Note: mass bio 12Admin Note: sanofi [...] EVERY USE., # 36 Gm, 3 [facility]ills, [facility], [facility], INHALE 2 PUFFS BY MOUTH TWO TIMES A DAY RINSE MOUTH AFTER EVERY USE., 177, cm, 10/19/21 10:00:00 EST, Height, 108, kg... Start Date: 12/21/21 Status: Ordered amitriptyline 100 mg oral tablet 0.5 tablet = 50 mg, By Mouth, Daily at bedtime, # 45 tablet, 3 Refills, Maintenance, 06/02/21 11:36:00 EDT, Tablet[facility] 177, cm, 06/02/21 11:35:00 EDT, Height, 108, kg, 05/24/21 19:44:00 EDT, Dry Weight Start Date: 06/02/21 Stop Date: 05/28/22 Status: Ordered amLODIPine 10 mg oral tablet 10 mg, 1, tablet, By Mouth, Daily, # 90 tablet, Refills 1, Tot. Refills 1, Maintenance, 05/28/22 11:36:00 EDT, Route to Pharmacy Electronically, [facility] 177, cm, 10/19/21 10:00:00EST, Height, 108, [...] Refills, Maintenance, 09/16/21 9:24:00 EST, ER Tablet, [facility], increase in dose, 177, cm, 06/02/21 11:35:00 EDT, Height, 108, kg, 05/24/21 19:44:00 EDT, Dry Weight Start Date: 09/16/21 Stop Date: 09/11/22 Status: Ordered busPIRone 10 mg oral tablet 15 mg, 1.5, tablet, By Mouth, 2 times a day, # 270 tablet, Refills 3, Tot. Refills 3, Maintenance, 09/16/21 9:24:00 EST, Route to Pharmacy Electronically, [facility], 177, cm, 06/02/21 11:35:00 EDT, Height, 108, kg, 05/24/21 19:44:00 E... Start Date: 09/16/21 Stop Date: 09/11/22 Status: Ordered cetirizine 10 mg oral tablet 1 tablet, By Mouth, Daily, PRN NEEDED FOR ALLERGY SYMPTOMS, # 30 tablet, 5 Refills, [facility], 177, cm, 09/16/21 10:06:00 EST, [...] (SEVERE ALLERGY), # 2 Unknown, 1 Refills, [facility], 177, cm, 06/02/21 11:35:00 EDT, Height, 108, kg, 05/24/21 19:44:00 EDT, Dry Weight Start Date: 09/08/21 Status: Ordered gabapentin 300 mg oral capsule See Instructions, TAKE 3 CAPSULES BY MOUTH IN THE MORNING, 3 CAPSULES EARLY PM AND 4 CAPSULES AT BEDTIME., # 900 capsule, Refills 3, Instructions Replace Required Details, Route to Pharmacy Electronically, [facility], 177, cm, 12/21/21 8:59:... Start Date: 01/11/22 Status: Ordered gloves, large gloves, large, See Instructions, # 50 each, Refills 11, Tot. Refills 11, Maintenance, use when handling soiled linen Dx: N39.4, 03/20/20 17:02:00 EDT, Supply Start Date: 03/20/20 Status: Ordered losartan 100 mg oral tablet 1 tablet = 100 mg, By Mouth, Daily, # 90 tablet, 4 Refills, Maintenance, 03/31/22 15:03:00 EDT, Tablet, [facility] in dose, 177, cm, 12/21/21 8:59:00 EST, Height, 114.4, kg,02/14/22 21:57:00 EDT, Dry Weight Start Date: 03/31/22 Stop Date: 06/24/23 Status: Ordered Mapap Arthritis Pain 650 mg oral tablet, extended release 2 tablet, By Mouth, Every 8 hours, PRN NEEDED FOR PAIN FOR, for 30 days, # 90 tablet, 9 Refills,Physician Stop 10/17/22 9:00:00 EST, 12/21/21 9:00:00 EST, [facility], 177, cm, 12/21/21 8:59:00 EST, Height, [...] 56tablet, 0 Refills, Maintenance, 03/15/22 16:28:00 EDT, [facility], may dispense today. cancel previous Rx [...] 01/11/22 15:16:00 EDT, Route to Pharmacy Electronically, [facility], Partial fill uponpatient request if the prescription is for a schedu... Start Date: 01/11/22 Stop Date: 07/10/22 Status: Ordered Ventolin HFA 108 mcg/inh inhalation aerosol with adapter 2 puffs, Inhalation, 4 times a day, PRN NEEDED FOR WHEEZING, # 18 Gm, 6 Refills, 12/28/21 11:00:00 EST, [facility], 177, cm, 12/21/21 8:59:00 EST, Height, 108, kg, 05/24/21 19:44:00 EDT, Dry Weight Start Date: 12/28/21 Status: Ordered Zofran 4 mg oral tablet 1 tablet = 4 mg, By Mouth, Every 8 hours, PRN Nausea & Vomiting, # 12 tablet, 0 Refills, Acute 06/09/22 10:43:00 EDT, 06/09/21 10:43:00 EDT, Tablet, [facility], Partial fill upon patient request if the prescription is for a schedule II... 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
--- OUTSIDE RECORDS SUMMARY | 2023-12-11 08:28 | XMS_ITS | Continuity of Care Document ---
Author Name Unknown Organization [facility] Address [address] [place] [address], [place] [address]- Care Team Providers Care Sponge Buffer Name Role Phone Cesario SCHULER, Demario Primary Care Physician Encounter [facility] Date(s): 11/19/19 - 11/26/[address] [facility] [address] [place] [address]- Attending Physician: Not on Staff, Attending MD Allergies, Adverse Reactions, Alerts Substance Reaction [...] (oldterm) 10 10/08/07 Give n 1Result Comment: [id number] given w/out incident 2Result Comment: [08/17/2018] [facility] [id number] 3Result Comment: [08/31/2017] given w/out incident [facility]: [id number] 4Result Comment: [08/21/2014] given w/o incident...AA 5Result Comment: [07/25/2013] given w/out incident 6Admin Note: vis sheet given. 7Admin Note: historial data 8Result Comment: [id number] 9Admin Note: mass bio 10Admin Note: sanofi [...] 04/23/19 10:58:48 EDT, Route to Pharmacy Electronically, [id number], [facility] Start Date: 04/23/19 Stop Date: 04/17/20 [...] 04/15/19 17:12:39 EDT, Route to Pharmacy Electronically, [id number], [facility] Start Date: 04/15/19 Stop Date: 04/09/20 [...] Maintenance, 01/22/1911:29:30 EDT, Route to Pharmacy Electronically, [id number], [facility] Pt howie stop cymbalta Start Date: 01/22/19 [...] 05/30/19 13:41:08 EDT, Route to Pharmacy Electronically, [id number], [facility] Start Date: 05/30/19 Stop Date: 05/24/20 Status: Ordered losartan 50 mg oral tablet 50 mg, 1, tablet, By Mouth, Daily, # 90 tablet, Refills 3, Tot. Refills 3, Maintenance, 01/22/19 11:26:31 EDT, Route to Pharmacy Electronically, [id number], [facility], lower dose Start Date: 01/22/19 Stop Date: 01/17/20 Status: Ordered Meclizine By Mouth, 3 times a day, 0 Refills, Maintenance, 12/14/18 15:25:26 EST Start Date: 12/14/18 Status: Ordered nystatin topical 443696 u/gm powder See Instructions, APPLY TOPICALLY TO AFFECTED AREA TWO TIMES A DAY FOR 14 DAYS, # 30 Gm, 0 Refills,Acute, [facility], 14, APPLY TOPICALLY TO AFFECTED AREA TWO [...] 10:28:00 EST, 11/25/19 10:28:00 EST, ER Tablet, [facility]... Start Date: 11/25/19 Stop Date: 12/23/19 [...] 0 Refills, Soft Stop, 11/25/19 10:29:00 EST, [facility] 167, cm, 10/07/19 10:55:00 EST, Height [...]
--- OUTSIDE RECORDS SUMMARY | 2023-12-11 08:28 | XMS_ITS | Continuity of Care Document ---
Author Name Unknown Organization [facility] Address [address] [place] [address]- Care Team Providers Care Visual Supervisor Name Role Phone Demario Nassar MD Primary Care Physician Encounter [facility] Date(s): 01/24/23 - 02/23/23 [facility] [address] [place], [place] [address] Allergies, Adverse Reactions, Alerts Substance [...] Reason: Other : not documented 2Result Comment: [id number] given w/out incident 3Result Comment: [id number] given w/out incident 4Result Comment: [facility]: [id number] 5Result Comment: [id number] given w/out incident 6Result Comment: [08/17/2018] [facility] [id number] 7Result Comment: [08/31/2017] given w/out incident [facility]: [id number] 8Result Comment: [08/21/2014] given w/o incident...AA 9Result Comment: [07/25/2013] given w/out incident 10Admin Note: vis sheet given. 11Admin Note: historial data 12Result Comment: [id number] 13Admin Note: mass bio 14Admin Note: sanofi [...] Gm, 1 Refills, Maintenance, 01/06/23 15:18:00 EST, [facility], 90, INHALE 2 PUFFS BY MOUTH TWO TIMES A DAY RINSE MOUTH AFTER EVERYUSE., 167, cm, 12/05/22 10:53:00 EST, Height, 114.4... Start Date: 01/06/23 Status: Ordered All Day Allergy 10 mg oral tablet 1 tablet, By Mouth, Daily, PRN NEEDED FOR ALLERGY SYMPTOMS, # 30 tablet, 6 Refills, Maintenance,11/08/22 15:08:00 EST, [facility], 177, cm, 12/21/21 8:59:00 EST, Height, 114.4, kg, 02/14/22 21:57:00 EDT, Dry Weight Start Date: 11/08/22 Status: Ordered amLODIPine 10 mg oral tablet 10 mg, 1, tablet, By Mouth, Daily, # 90 tablet, Refills 3, Tot. Refills 3, Maintenance, 11/25/22 15:31:00 EST, Route to Pharmacy Electronically, [facility], 177, cm, 12/21/21 8:59:00 EST, Height, 114.4, kg, 02/14/22 21:57:00 EDT, Dry W... Start Date: 11/25/22 Stop Date: 11/20/23 Status: Ordered atorvastatin 40 mg oral tablet 1 tablet, By Mouth, Daily, # 90 tablet, 1 Refills, Maintenance, 02/03/23 16:11:00 EDT, [facility], 167, cm, 12/05/22 10:53:00 EST, Height, 114.4, [...] Refills, Maintenance, 10/21/22 12:33:00 EST, ER Tablet, [facility], increase in dose, 177, cm, 12/21/21 8:59:00 [...] 08/02/22 15:37:00 EDT, [facility], replaces spironolactone, 177, cm, 12/21/21 8:59:00 [...] (SEVERE ALLERGY), # 2 Unknown, 1 Refills, [facility], 177, cm, 06/02/21 11:35:00 EDT, Height, 108, kg, 05/24/21 19:44:00 EDT, Dry Weight Start Date: 09/08/21 Status: Ordered gabapentin 300 mg oral capsule See Instructions, TAKE 3 CAPSULES BY MOUTH IN THE MORNING, 3 CAPSULES EARLY PM AND 4 CAPSULES AT BEDTIME., # 900 capsule, Refills 3, Maintenance, 12/23/22 13:41:00 EST, Instructions Replace Required Details, Route to Pharmacy Electronically, [facility] Start Date: 12/23/22 Status: Ordered gloves, large gloves, large, See Instructions, # 50 each, Refills 11, Tot. Refills 11, Maintenance, use when handling soiled linen Dx: N39.4, 03/20/20 17:02:00 EDT, Supply Start Date: 03/20/20 Status: Ordered losartan 100 mg oral tablet 1 tablet = 100 mg, By Mouth, Daily, # 90 tablet, 4 Refills, Maintenance, 03/31/22 15:03:00 EDT, Tablet, [facility]., increase in dose, 177, cm, 12/21/21 8:59:00 EST, Height, 114.4, kg,02/14/22 21:57:00 EDT, Dry Weight Start Date: 03/31/22 Stop Date: 06/24/23 Status: Ordered Mapap Arthritis Pain 650 mg oral tablet, extended release 2 tablet, By Mouth, Every 8 hours, PRN NEEDED FOR PAIN, # 90 tablet, 11 Refills, Maintenance, 08/12/22 10:25:00 EDT, [facility], 177, cm, 12/21/21 8:59:00 EST, Height, [...] , Severe, # 56 tablet, 0 Refills, Maintenance,02/14/23 17:28:00 EDT, [facility]., resent, 167, cm, 12/05/22 10:53:00 EST, Height, 114.4, kg, 02/14/22 21:57:00 EDT, Dry Weight Start Date: 02/14/23 Stop Date: 03/14/23 Status: Ordered Protonix 40 mg oral delayed [...] Gm, 5 Refills, Maintenance, 12/15/22 14:09:00 EST, [facility]., 167, cm, 12/05/22 10:53:00 EST, Height, 114.4, kg, 02/14/22 21:57:00 EDT, Dry Weight Start Date: 12/15/22 Status: Ordered zolpidem 10 mg oral tablet 1 tablet, By Mouth, Daily at bedtime, PRN NEEDED FOR INSOMNIA, for 28 days, # 28 tablet, 0 Refills, Acute 02/24/23 13:53:00 EDT, 01/27/23 13:53:00 EDT, [facility], refill on April 15, 2022, 167, cm, [...] Active FH: 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 (mom) 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
--- OUTSIDE RECORDS SUMMARY | 2023-12-11 08:28 | XMS_ITS | Continuity of Care Document ---
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 Name Role Phone Demario Nassar MD Primary Care Physician Encounter [facility] Date(s): 03/14/23 - 04/13/23 [facility] [address] [place], [place] [address] Allergies, Adverse Reactions, Alerts Substance [...] Reason: Other : not documented 2Result Comment: [id number] given w/out incident 3Result Comment: [id number] given w/out incident 4Result Comment: [facility]: [id number] 5Result Comment: [id number] given w/out incident 6Result Comment: [08/17/2018] [facility] [id number] 7Result Comment: [08/31/2017] given w/out incident [facility]: [id number] 8Result Comment: [08/21/2014] given w/o incident...AA 9Result Comment: [07/25/2013] given w/out incident 10Admin Note: vis sheet given. 11Admin Note: historial data 12Result Comment: [id number] 13Admin Note: mass bio 14Admin Note: sanofi [...] Gm, 1 Refills, Maintenance, 01/06/23 15:18:00 EST, [facility], 90, INHALE 2 PUFFS BY MOUTH TWO TIMES A DAY RINSE MOUTH AFTER EVERYUSE., 167, cm, 12/05/22 10:53:00 EST, Height, 114.4... Start Date: 01/06/23 Status: Ordered All Day Allergy 10 mg oral tablet 1 tablet, By Mouth, Daily, PRN NEEDED FOR ALLERGY SYMPTOMS, # 30 tablet, 6 Refills, Maintenance,11/08/22 15:08:00 EST, [facility], 177, cm, 12/21/21 8:59:00 EST, Height, 114.4, kg, 02/14/22 21:57:00 EDT, Dry Weight Start Date: 11/08/22 Status: Ordered amLODIPine 10 mg oral tablet 10 mg, 1, tablet, By Mouth, Daily, # 90 tablet, Refills 3, Tot. Refills 3, Maintenance, 11/25/22 15:31:00 EST, Route to Pharmacy Electronically, [facility], 177, cm, 12/21/21 8:59:00 EST, Height, 114.4, kg, 02/14/22 21:57:00 EDT, Dry W... Start Date: 11/25/22 Stop Date: 11/20/23 Status: Ordered atorvastatin 40 mg oral tablet 1 tablet, By Mouth, Daily, # 90 tablet, 1 Refills, Maintenance, 02/03/23 16:11:00 EDT, [facility], 167, cm, 12/05/22 10:53:00 EST, Height, 114.4, [...] Refills, Maintenance, 10/21/22 12:33:00 EST, ER Tablet, [facility], increase in dose, 177, cm, 12/21/21 8:59:00 [...] 08/02/22 15:37:00 EDT, Route to Pharmacy Electronically, [facility], replaces spironolactone, 177, cm, 12/21/21 8:59:00 EST, [...] 2 Unknown, 1 Refills, [facility], 177, cm, 06/02/21 11:35:00 [...] Details, Route to Pharmacy Electronically, [facility] Start Date: 12/23/22 Status: Ordered gloves, large gloves, large, See Instructions, # 50 each, Refills 11, Tot. Refills 11, Maintenance, use when handling soiled linen Dx: N39.4, 03/20/20 17:02:00 EDT, Supply Start Date: 03/20/20 Status: Ordered losartan 100 mg oral tablet 1 tablet = 100 mg, By Mouth, Daily, # 90 tablet, 4 Refills, Maintenance, 03/31/22 15:03:00 EDT, Tablet, [facility]., increase in dose, 177, cm, 12/21/21 8:59:00 EST, Height, 114.4, kg,02/14/22 21:57:00 EDT, Dry Weight Start Date: 03/31/22 Stop Date: 06/24/23 Status: Ordered Mapap Arthritis Pain 650 mg oral tablet, extended release 2 tablet, By Mouth, Every 8 hours, PRN NEEDED FOR PAIN, # 90 tablet, 11 Refills, Maintenance, 08/12/22 10:25:00 EDT, [facility], 177, cm, 12/21/21 8:59:00 EST, Height, [...] 56 tablet, 0 Refills, Maintenance,04/11/23 10:59:00 EDT, [facility], resent, 167, cm, 12/05/22 10:53:00 EST, Height, [...] Gm, 5 Refills, Maintenance, 12/15/22 14:09:00 EST, [facility], 167, cm, 12/05/22 10:53:00 EST, Height, [...] Active FH: 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 (mom) 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
--- OUTSIDE RECORDS SUMMARY | 2023-12-11 08:28 | XMS_ITS | Continuity of Care Document ---
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 Name Role Phone Demario Nassar MD Primary Care Physician Encounter [facility] Date(s): 07/21/20 - 08/20/20 [facility] [address] [place] [address]- [facility] Allergies, Adverse Reactions, Alerts Substance Reaction Severity [...] (oldterm) 10 10/08/07 Give n 1Result Comment: [id number] given w/out incident 2Result Comment: [08/17/2018] [facility] 26215-968-54 3Result Comment: [08/31/2017] given w/out incident [facility]: [id number] 4Result Comment: [08/21/2014] given w/o incident...AA 5Result Comment: [07/25/2013] given w/out incident 6Admin Note: vis sheet given. 7Admin Note: historial data 8Result Comment: [id number] 9Admin Note: mass bio 10Admin Note: sanofi Medications acetaminophen 650 mg oral tablet, extended release 2 tablet = 1,300 mg, By Mouth, Every 8 hours, PRN as needed for pain, for 30 days, # 90 tablet, 5 Refills, Acute 10/18/20 17:11:00 EST, 04/21/20 17:11:00 EDT, ER Tablet, [facility]., 167, cm, 01/14/20 9:59:00 EDT, Height Start Date: 04/21/20 Stop Date: 10/18/20 Status: Ordered Advair HFA 115 mcg / 21 mcg 2 puffs, Inhalation, 2 times a day, Dx: COPD rinse mouth and throat after use, # 3 each, 3 Refills,Maintenance, 04/16/20 10:16:00 EDT, Aerosol, [facility] replaces Rx for symbicort not covered by her insurance, 2 puffs Inhalation 2... Start Date: 04/16/20 Stop Date: 04/11/21 Status: Ordered amitriptyline 100 mg oral tablet 1.5 tablet = 150 mg, By Mouth, Daily at bedtime, # 135 tablet, 3 Refills, Maintenance, 04/16/20 10:16:00 EDT, Tablet, [facility] 167, cm, 01/14/20 9:59:00 EDT, Height Start Date: 04/16/20 Stop Date: 04/11/21 Status: Ordered amLODIPine 10 mg oral tablet 10 mg, 1, tablet, By Mouth, Daily, # 90 tablet, Refills 3, Tot. Refills 3, Maintenance, 04/16/20 10:16:00 EDT, Route to Pharmacy Electronically, [facility], 167, cm, 01/14/20 9:59:00 EDT, [...] 3 Refills, Maintenance, 05/11/20 9:45:00 EDT, Tablet, [facility], 167, cm, 01/14/20 9:59:00 EDT, [...] 07/07/20 12:31:00 EDT, Route to Pharmacy Electronically, [facility], 167, cm, 209:59:00 EDT, Height Start Date: 07/07/20 Stop Date: 07/02/21 Status: Ordered chlorthalidone 25 mg oral tablet 25 mg, 1, tablet, By Mouth, Daily, # 90 tablet, Refills 3, Tot. Refills 3, Maintenance, 04/16/20 10:15:00 EDT, Route to Pharmacy Electronically, [facility], replaces hydrochlorothiazide, 167, cm, 01/14/20 9:59:00 EDT, Height Start Date: 04/16/20 Stop Date: 6/13/21 Status: Ordered CPAP Supplies - Tubing, Filter, [...] kit, 1 Refills, Soft Stop,04/16/20 10:16:00 EDT, [facility], 167, cm, 01/14/20 9:59:00 EDT, Height Start Date: 04/16/20 Status: Ordered FLUoxetine 20 mg oral capsule 3, capsule, By Mouth, Daily, # 270 capsule, Refills 3, Tot. Refills 0, Maintenance, 02/21/20 15:09:00 EDT, Route to Pharmacy Electronically, [facility], 167, cm, 01/14/20 9:59:00 EDT, Height Start [...] EDT, Route to Pharmacy Electronically, [facility], lower dose, 167, cm, 01/14/20 9:59:00 EDT, Height Start Date: 01/14/20 Stop Date: 01/08/21 Status: Ordered Meclizine By Mouth, 3 times a day, 0 Refills, Maintenance, 12/14/18 15:25:26 EST Start Date: 12/14/18 Status: Ordered nystatin topical 102686 u/gm powder See Instructions, APPLY TOPICALLY TO AFFECTED AREA TWO TIMES A DAY FOR 14 DAYS, # 30 Gm, 0 Refills,Acute, [facility], 14, APPLY TOPICALLY TO AFFECTED [...] 12:26:00 EST, 08/04/20 12:26:00 EDT, ER Tablet, [facility]... Start Date: 08/04/20 Stop Date: 09/01/20 [...] Refills, Soft Stop, 01/14/20 10:16:00 EDT, Aerosol, [facility], replaces proair, 167, cm, 01/14/20 9:59:00 EDT, Height Start Date: 01/14/20 Stop Date: 07/12/20 Status: Ordered zolpidem 10 mg oral tablet 1 tablet = 10 mg, By Mouth, Daily at bedtime, PRN as needed for insomnia, # 28 tablet, 0 Refills, Soft Stop, 08/18/20 8:53:00 EDT, [facility] 167, cm, 01/14/20 9:59:00 EDT, [...] mellitus (aunt)(Confirmed) Active FH: 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 (mom)(Confirmed) Active [employer] current use 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
--- OUTSIDE RECORDS SUMMARY | 2023-12-11 08:28 | XMS_ITS | Continuity of Care Document ---
Author Name Unknown Organization [facility] Address [address] [place] [address]- Care Team Providers Care Planting Supervisor Name Role Phone Cesario SCHULER, Demario Primary Care Physician Encounter [facility] Date(s): 02/18/22 - 03/24/22 [facility] [address] [place], [place] [address] Attending Physician: Jonathon Barlow MD Allergies, Adverse Reactions, Alerts Substance Reaction [...] (oldterm) 12 10/08/07 Give n 1Result Comment: [id number] given w/out incident 2Result Comment: [facility]: [id number] 3Result Comment: [id number] given w/out incident 4Result Comment: [08/17/2018] [facility] [id number] 5Result Comment: [08/31/2017] given w/out incident [facility]: [id number] 6Result Comment: [08/21/2014] given w/o incident...AA 7Result Comment: [07/25/2013] given w/out incident 8Admin Note: vis sheet given. 9Admin Note: historial data 10Result Comment: [id number] 11Admin Note: mass bio 12Admin Note: sanofi [...] EVERY USE., # 36 Gm, 3 Refills, [facility], 90, INHALE 2 PUFFS BY MOUTH TWO TIMES A DAY RINSE MOUTH AFTER EVERY USE., 177, cm, 10/19/21 10:00:00 EST, Height, 108, kg... Start Date: 12/21/21 Status: Ordered amitriptyline 100 mg oral tablet 1 tablet = 100 mg, By Mouth, Daily at bedtime, # 90 tablet, 3 Refills, Maintenance, 06/02/21 11:36:00 EDT, Tablet, [facility] 177, cm, 06/02/21 11:35:00 EDT, Height, 108, kg, 05/24/21 19:44:00 EDT, Dry Weight Start Date: 06/02/21 Stop Date: 05/28/22 Status: Ordered amLODIPine 10 mg oral tablet 10 mg, 1, tablet, By Mouth, Daily, # 90 tablet, Refills 1, Tot. Refills 1, Maintenance, 05/28/22 11:36:00 EDT, Route to Pharmacy Electronically, [facility], 177, cm, 10/19/21 10:00:00EST, Height, 108, [...] Refills, Maintenance, 09/16/21 9:24:00 EST, ER Tablet, [facility], increase in dose, 177, cm, 06/02/21 11:35:00 EDT, Height, 108, kg, 05/24/21 19:44:00 EDT, Dry Weight Start Date: 09/16/21 Stop Date: 09/11/22 Status: Ordered busPIRone 10 mg oral tablet 15 mg, 1.5, tablet, By Mouth, 2 times a day, # 270 tablet, Refills 3, Tot. Refills 3, Maintenance, 09/16/21 9:24:00 EST, Route to Pharmacy Electronically, [facility], 177, cm, 06/02/21 11:35:00 EDT, Height, 108, kg, 05/24/21 19:44:00 E... Start Date: 09/16/21 Stop Date: 09/11/22 Status: Ordered cetirizine 10 mg oral tablet 1 tablet, By Mouth, Daily, PRN NEEDED FOR ALLERGY SYMPTOMS, # 30 tablet, 5 Refills, [facility], 177, cm, 09/16/21 10:06:00 EST, [...] (SEVERE ALLERGY), # 2 Unknown, 1 Refills, [facility], 177, cm, 06/02/21 11:35:00 EDT, Height, 108, kg, 05/24/21 19:44:00 EDT, Dry Weight Start Date: 09/08/21 Status: Ordered gabapentin 300 mg oral capsule See Instructions, TAKE 3 CAPSULES BY MOUTH IN THE MORNING, 3 CAPSULES EARLY PM AND 4 CAPSULES AT BEDTIME., # 900 capsule, Refills 3, Instructions Replace Required Details, Route to Pharmacy Electronically, [facility], 177, cm, 12/21/21 8:59:... Start [...] 06/02/21 11:36:00 EDT, Route to Pharmacy Electronically, [facility], lower dose, 177, cm, 06/02/21 11:35:00 EDT, Height, 108, kg, 05/24/21 19:44:00... Start Date: 06/02/21 Stop Date: 05/28/22 Status: Ordered Mapap Arthritis Pain 650 mg oral tablet, extended release 2 tablet, By Mouth, Every 8 hours, PRN NEEDED FOR PAIN FOR, for 30 days, # 90 tablet, 9 Refills,Physician Stop 10/17/22 9:00:00 EST, 12/21/21 9:00:00 EST, [facility] 177, cm, 12/21/21 8:59:00 EST, Height, 108, [...] 56tablet, 0 Refills, Maintenance, 03/15/22 16:28:00 EDT, [facility], may dispense today. cancel previous Rx [...] 01/11/22 15:16:00 EDT, Route to Pharmacy Electronically, [facility], Partial fill uponpatient request if the prescription is for a schedu... Start Date: 01/11/22 Stop Date: 07/10/22 Status: Ordered Ventolin HFA 108 mcg/inh inhalation aerosol with adapter 2 puffs, Inhalation, 4 times a day, PRN NEEDED FOR WHEEZING, # 18 Gm, 6 Refills, 12/28/21 11:00:00 EST, [facility], 177, cm, 12/21/21 8:59:00 EST, Height, 108, kg, 05/24/21 19:44:00 EDT, Dry Weight Start Date: 12/28/21 Status: Ordered Zofran 4 mg oral tablet 1 tablet = 4 mg, By Mouth, Every 8 hours, PRN Nausea & Vomiting, # 12 tablet, 0 Refills, Acute 06/09/22 10:43:00 EDT, 06/09/21 10:43:00 EDT, Tablet, [facility], Partial fill upon patient request if the prescription is for a schedule II... Start Date: 06/09/21 Stop Date: 06/09/22 Status: Ordered zolpidem 10 mg oral tablet 1 tablet, By Mouth, Daily at bedtime, PRN NEEDED FOR INSOMNIA, # 28 tablet, 0 Refills, Acute 04/18/22 16:53:00 EDT, 03/18/22 16:53:00 EDT, [facility], refill when due, 177, cm, 12/21/21 [...]
--- OUTSIDE RECORDS SUMMARY | 2023-12-11 08:29 | XMS_ITS | Continuity of Care Document ---
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: [id number] 5Result Comment: [id number] given w/out incident 6Result Comment: [08/17/2018] [facility] [id number] 7Result Comment: [08/31/2017] given w/out incident [facility]: [id number] 8Result Comment: [08/21/2014] given w/o incident...AA 9Result Comment: [07/25/2013] given w/out incident 10Admin Note: vis sheet given. 11Admin Note: historial data 12Result Comment: [id number] 13Admin Note: mass bio 14Admin Note: sanofi [...] 5 Refills, Maintenance, 07/28/23 13:25:00 EDT, [facility], [facility], cm, 05/29/23 18:21:00 EDT, Height, 114.4, kg, 02/14/22 21:57:00 EDT, Dry Weight Start Date: 07/28/23 Status: Ordered Advair HFA 115 mcg / 21 mcg 2 puffs, Inhalation, 2 times a day, AFTER EVERY USE., # 36 Gm, 1 Refills, Maintenance, 07/28/23 13:25:00 EDT, [facility], [facility], INHALE 2 PUFFS BY MOUTH TWO TIMES A DAY RINSE MOUTH AFTER EVERYUSE., 167, cm, 05/29/23 18:21:00 EDT, Height, 114.4... Start Date: 07/28/23 Status: Ordered All Day Allergy 10 mg oral tablet 1 tablet, By Mouth, Daily, PRN NEEDED FOR ALLERGY SYMPTOMS, # 30 tablet, 5 Refills, Maintenance,06/20/23 7:39:00 EDT, [facility], 167, cm, 05/29/23 18:21:00 EDT, Height, 114.4, kg, 02/14/22 21:57:00 EDT, Dry Weight Start Date: 06/20/23 Status: Ordered amLODIPine 10 mg oral tablet 10 mg, 1, tablet, By Mouth, Daily, # 90 tablet, Refills 3, Tot. Refills 3, Maintenance, 11/25/22 15:31:00 EST, Route to Pharmacy Electronically, [facility], 177, cm, 12/21/21 8:59:00 EST, Height, 114.4, kg, 02/14/22 21:57:00 EDT, Dry W... Start Date: 11/25/22 Stop Date: 11/20/23 Status: Ordered atorvastatin 40 mg oral tablet 1 tablet, By Mouth, Daily, # 90 tablet, 1 Refills, Maintenance, 02/03/23 16:11:00 EDT, [facility], 167, cm, 12/05/22 10:53:00 EST, Height, [...] 05/29/23 18:09:00 EDT, [facility] spironolactone, 167, cm, 05/29/23 [...] Unknown, 1 Refills, Maintenance, 05/12/23 12:41:00 EDT, [facility], [facility], cm, 12/05/22 10:53:00 EST, Height, 114.4, kg, 02/14/22 21:57:00 EDT,... Start Date: 05/12/23 Status: Ordered gabapentin 300 mg oral capsule See Instructions, TAKE 3 CAPSULES BY MOUTH IN THE MORNING, 3 CAPSULES EARLY PM AND 4 CAPSULES AT BEDTIME., # 900 capsule, Refills 3, Maintenance, 12/23/22 13:41:00 EST, Instructions Replace Required Details, [facility] Start Date: 12/23/22 Status: Ordered gloves, large gloves, large, See Instructions, # 50 each, Refills 11, Tot. Refills 11, Maintenance, use when handling soiled linen Dx: N39.4, 03/20/20 17:02:00 EDT, Supply Start Date: 03/20/20 Status: Ordered losartan 100 mg oral tablet 1 tablet = 100 mg, By Mouth, Daily, # 90 tablet, 4 Refills, Maintenance, 05/29/23 18:09:00 EDT, Tablet, [facility]., increase in dose, 167, cm, 05/29/23 [...] 56 tablet, 0 Refills, Maintenance,08/04/23 17:31:00 EDT, [facility], may fill no earlier than 08/08/23, [...] 5 Refills, Maintenance, 05/03/23 18:41:00 EDT, [facility], 167, cm, 12/05/22 10:53:00 EST, Height, [...] Confirmed Active FH: 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 (mom) Confirmed Active senior living current use of opiate analgesic Confirmed Active [...] Team Personnel Name: Ermelinda Rice RN Position: [facility] RN Member Role: Primary Care Nurse Name: Tri Sebastian RN Position: [facility] RN Member Role: Primary Care Nurse Name: Demario Nassar MD Position: [facility] Physician - Primary Care Member Role: PCP Address: Address: [address] [place] [address] Adult [place] [address]- Care Team Related Persons Name: EPIFANIO STYLES Address: [address] [address] Name: DEUCE SEE
--- OUTSIDE RECORDS SUMMARY | 2023-12-11 08:29 | XMS_ITS | Continuity of Care Document ---
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 Phone Demario Nassar MD Primary Care Physician Encounter [facility] Date(s): 09/29/21 - 10/29/21 [facility] [address] [place], [place] [address] Allergies, Adverse Reactions, Alerts Substance Reaction [...] (oldterm) 12 10/08/07 Give n 1Result Comment: [id number] given w/out incident 2Result Comment: [facility]: [id number] 3Result Comment: [id number] given w/out incident 4Result Comment: [08/17/2018] [facility] [id number] 5Result Comment: [08/31/2017] given w/out incident [facility]: [id number] 6Result Comment: [08/21/2014] given w/o incident...AA 7Result Comment: [07/25/2013] given w/out incident 8Admin Note: vis sheet given. 9Admin Note: historial data 10Result Comment: [id number] 11Admin Note: mass bio 12Admin Note: sanofi [...] each, 1 Refills,Maintenance, 10/19/21 14:37:00 EST, Aerosol, [facility], replaces Rx for symbicort not covered by her insurance, 2 puffs Inhalation 2... Start Date: 10/19/21 Stop Date: 04/17/22 Status: Ordered albuterol 0.083% inhalation solution 3 mL = 2.5 mg, Inhalation, Every 6 hours, PRN for wheezing, Dx: COPD J44.9, # 60 each, 2 Refills, Maintenance, 06/02/21 11:29:00 EDT, Solution, [facility], Partial fill upon patient request if the prescription is for a schedule II opio... Start Date: 06/02/21 Status: Ordered amitriptyline 100 mg oral tablet 1.5 tablet = 150 mg, By Mouth, Daily at bedtime, # 135 tablet, 3 Refills, Maintenance, 06/02/21 11:36:00 EDT, Tablet, [facility], 177, cm, 06/02/21 11:35:00 EDT, Height, 108, kg, 05/24/21 19:44:00 EDT, Dry Weight Start Date: 06/02/21 Stop Date: 05/28/22 Status: Ordered amLODIPine 10 mg oral tablet 10 mg, 1, tablet, By Mouth, Daily, for 90 days, # 90 tablet, Refills 3, Tot. Refills 3, Hard Stop 05/28/22 11:36:00 EDT, 06/02/21 11:36:00 EDT, Route to Pharmacy Electronically, [facility], 177, cm, 06/02/21 11:35:00 EDT, Height, 108,... Start Date: 06/02/21 Stop Date: 05/28/22 Status: Ordered amLODIPine 10 mg oral tablet 10 mg, 1, tablet, By Mouth, Daily, # 90 tablet, Refills 1, Tot. Refills 1, Maintenance, 05/28/22 11:36:00 EDT, Route to Pharmacy Electronically, [facility], 177, cm, 10/19/21 10:00:00EST, Height, 108, kg, 05/24/21 19:44:00 EDT, Dry We... Start Date: 05/28/22 Stop Date: 11/24/22 Status: Ordered atorvastatin 20 mg oral tablet 1 tablet = 20 mg, By Mouth, Daily, # 90 tablet, 1 Refills, Maintenance, 07/26/21 13:55:00 EDT, Tablet, [facility]., 177, cm, 06/02/21 11:35:00 EDT, Height, [...] Refills, Maintenance, 09/16/21 9:24:00 EST, ER Tablet, [facility], increase in dose, 177, cm, 06/02/21 11:35:00 EDT, Height, 108, kg, 05/24/21 19:44:00 EDT, Dry Weight Start Date: 09/16/21 Stop Date: 09/11/22 Status: Ordered busPIRone 10 mg oral tablet 10 mg, 1, tablet, By Mouth, 2 times a day, # 180 tablet, Refills 3, Tot. Refills 3, Maintenance, 09/16/21 9:24:00 EST, Route to Pharmacy Electronically, [facility], 177, cm, 06/02/21 11:35:00 EDT, Height, 108, kg, 05/24/21 19:44:00 EDT... Start Date: 09/16/21 Stop Date: 09/11/22 Status: Ordered cetirizine 10 mg oral tablet 1 tablet, By Mouth, Daily, PRN NEEDED FOR ALLERGY SYMPTOMS, # 30 tablet, 5 Refills, [facility], 177, cm, 09/16/21 10:06:00 EST, Height, [...] 10/19/21 10:09:00 EST, Route to Pharmacy Electronically, [facility], Partial fill upon... Start Date: 10/19/21 Stop Date: 11/02/21 Status: Ordered EPINEPHrine 0.3 mg injectable solution See Instructions, INJECT 0.3 MG INTRAMUSCULAR ONCE NEEDED FOR ANAPHYLAXIS (SEVERE ALLERGY), # 2 Unknown, 1 Refills, [facility], 177, cm, 06/02/21 11:35:00 EDT, Height, 108, kg, 05/24/21 19:44:00 EDT, Dry Weight Start Date: 09/08/21 Status: Ordered FLUoxetine 20 mg oral capsule 3, capsule, By Mouth, Daily, for 90 days, # 270 capsule, Refills 0, Physician Stop, [facility], 177, cm, 06/02/21 11:35:00 EDT, Height, [...] 10/19/21 10:08:00 EST, Route to Pharmacy Electronically, [facility], Partial fill upon patient... Start Date: 10/19/21 Stop Date: 11/18/21 Status: Ordered losartan 50 mg oral tablet 50 mg, 1, tablet, By Mouth, Daily, # 90 tablet, Refills 3, Tot. Refills 3, Maintenance, 06/02/21 11:36:00 EDT, Route to Pharmacy Electronically, [facility], lower dose, 177, cm, 06/02/21 11:35:00 EDT, Height, 108, kg, 05/24/21 19:44:00... Start Date: 06/02/21 Stop Date: 05/28/22 Status: Ordered Mapap Arthritis Pain 650 mg oral tablet, extended release 2 tablet, By Mouth, Every 8 hours, PRN NEEDED FOR PAIN FOR, for 30 days, # 90 tablet, 2 Refills,[facility]ician Stop, [facility], 177, cm, 10/19/21 10:00:00 EST, Height, 108, [...] 28 DAYS, # 56tablet, 0 Refills, Maintenance, 10/27/21 14:17:00 EST, [facility], Pt requests an early refill for travel, 177, cm, 10/19/21 10:00:00 E... Start Date: 10/27/21 Status: Ordered Periwash Perineal cleaning solution Periwash [...] 09/16/21 9:30:00 EST, Route to Pharmacy Electronically, [facility], Partial fill upon patient request if the prescription is for a schedule... Start Date: 09/16/21 Stop Date: 02/13/22 Status: Ordered Ventolin HFA 108 mcg/inh inhalation aerosol with adapter 2 puffs, Inhalation, 4 times a day, PRN for wheezing, for 30 days, # 1 each, 5 Refills, Hard Stop 12/19/21 11:01:00 EST, 06/22/21 11:01:00 EDT, Aerosol, [facility], replaces proair, 177, cm, 06/02/21 11:35:00 EDT, Height, 108, kg, 04/30... Start Date: 06/22/21 Stop Date: 12/19/21 Status: Ordered Zofran 4 mg oral tablet 1 tablet = 4 mg, By Mouth, Every 8 hours, PRN Nausea & Vomiting, # 12 tablet, 0 Refills, Acute 06/09/22 10:43:00 EDT, 06/09/21 10:43:00 EDT, Tablet, [facility], Partial fill upon patient request if the prescription is for a schedule II... Start Date: 06/09/21 Stop Date: 06/09/22 Status: Ordered zolpidem 10 mg oral tablet 1 tablet, By Mouth, Daily at bedtime, PRN NEEDED FOR INSOMNIA, # 28 tablet, 0 Refills, Acute 10/27/22 14:17:00 EST, 10/27/21 14:17:00 EST, [facility], refill when due, 177, cm, 10/19/21 10:00:00 EST, Height, 108, kg, 05/24/21 19:44:... 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
--- OUTSIDE RECORDS SUMMARY | 2023-12-11 08:29 | XMS_ITS | Continuity of Care Document ---
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 Role Phone Demario Nassar MD Primary Care Physician Encounter [facility] Date(s): 09/30/21 - 10/30/21 [facility] [address] [place], [place] [address] Allergies, Adverse Reactions, Alerts Substance [...] (oldterm) 12 10/08/07 Give n 1Result Comment: [id number] given w/out incident 2Result Comment: [facility]: [id number] 3Result Comment: [id number] given w/out incident 4Result Comment: [08/17/2018] [facility] [id number] 5Result Comment: [08/31/2017] given w/out incident [facility]: [id number] 6Result Comment: [08/21/2014] given w/o incident...AA 7Result Comment: [07/25/2013] given w/out incident 8Admin Note: vis sheet given. 9Admin Note: historial data 10Result Comment: [id number] 11Admin Note: mass bio 12Admin Note: sanofi [...] each, 1 Refills,Maintenance, 10/19/21 14:37:00 EST, Aerosol, [facility], replaces Rx for symbicort not covered by her insurance, 2 puffs Inhalation 2... Start Date: 10/19/21 Stop Date: 04/17/22 Status: Ordered albuterol 0.083% inhalation solution 3 mL = 2.5 mg, Inhalation, Every 6 hours, PRN for wheezing, Dx: COPD J44.9, # 60 each, 2 Refills, Maintenance, 06/02/21 11:29:00 EDT, Solution, [facility]., Partial fill upon patient request [...] 05/28/22 11:36:00 EDT, Route to Pharmacy Electronically, [facility], 177, cm, 10/19/21 10:00:00EST, Height, 108, kg, 05/24/21 19:44:00 EDT, Dry We... Start Date: 05/28/22 Stop Date: 11/24/22 Status: Ordered atorvastatin 20 mg oral tablet 1 tablet = 20 mg, By Mouth, Daily, # 90 tablet, 1 Refills, Maintenance, 07/26/21 13:55:00 EDT, Tablet, [facility]., 177, cm, 06/02/21 11:35:00 EDT, Height, [...] Maintenance, 09/16/21 9:24:00 EST, ER Tablet, [facility], increase in dose, 177, cm, 06/02/21 11:35:00 EDT, Height, 108, kg, 05/24/21 19:44:00 EDT, Dry Weight Start Date: 09/16/21 Stop Date: 09/11/22 Status: Ordered busPIRone 10 mg oral tablet 10 mg, 1, tablet, By Mouth, 2 times a day, # 180 tablet, Refills 3, Tot. Refills 3, Maintenance, 09/16/21 9:24:00 EST, Route to Pharmacy Electronically, [facility], 177, cm, 06/02/21 11:35:00 EDT, Height, 108, kg, 05/24/21 19:44:00 EDT... Start Date: 09/16/21 Stop Date: 09/11/22 Status: Ordered cetirizine 10 mg oral tablet 1 tablet, By Mouth, Daily, PRN NEEDED FOR ALLERGY SYMPTOMS, # 30 tablet, 5 Refills, [facility], 177, cm, 09/16/21 10:06:00 EST, Height, [...] 10/19/21 10:09:00 EST, Route to Pharmacy Electronically, [facility], Partial fill upon... Start Date: 10/19/21 Stop Date: 11/02/21 Status: Ordered EPINEPHrine 0.3 mg injectable solution See Instructions, INJECT 0.3 MG INTRAMUSCULAR ONCE NEEDED FOR ANAPHYLAXIS (SEVERE ALLERGY), # 2 Unknown, 1 Refills, [facility], 177, cm, 06/02/21 11:35:00 EDT, Height, 108, kg, 05/24/21 19:44:00 EDT, Dry Weight Start Date: 09/08/21 Status: Ordered FLUoxetine 20 mg oral capsule 3, capsule, By Mouth, Daily, for 90 days, # 270 capsule, Refills 0, Physician Stop, [facility], 177, cm, 06/02/21 11:35:00 EDT, Height, [...] 10/19/21 10:08:00 EST, Route to Pharmacy Electronically, [facility], Partial fill upon patient... Start Date: [...] days, # 90 tablet, 2 Refills,Physician Stop, [facility], 177, cm, 10/19/21 10:00:00 EST, Height, 108, [...] 56tablet, 0 Refills, Maintenance, 10/27/21 14:17:00 EST, [facility], Pt requests [...] 09/16/21 9:30:00 EST, Route to Pharmacy Electronically, [facility], Partial fill [...] Acute 10/27/22 14:17:00 EST, 10/27/21 14:17:00 EST, [facility], refill when due, 177, cm, 10/19/21 10:00:00 [...] mellitus (aunt)(Confirmed) Active FH: 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 (mom)(Confirmed) Active shelter current use 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
--- OUTSIDE RECORDS SUMMARY | 2023-12-11 08:29 | XMS_ITS | Continuity of Care Document ---
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 Phone Demario Nassar MD Primary Care Physician Encounter [facility] Date(s): 02/22/22 - 03/01/22 [facility] [address] [place], [place] [address] Attending Physician: Demario Nassar MD Allergies, Adverse [...] Adult Vaccine 11/19/19 Given tetanus-diphtheria toxoids (Td) 6/25/19 Given tetanus-diphtheria toxoids (Td) 9 11/27/96 Given pneumococcal 23-valent vaccine 10 01/22/19 Given diphtheria-tetanus toxoids (DT) 11 03/19/09 Given Influenza Virus Vaccine (oldterm) 12 10/08/07 Give n 1Result Comment: [id number] given w/out incident 2Result Comment: [facility]: [id number] 3Result Comment: [id number] given w/out incident 4Result Comment: [08/17/2018] [facility] [id number] 5Result Comment: [08/31/2017] given w/out incident [facility]: [id number] 6Result Comment: [08/21/2014] given w/o incident...AA 7Result Comment: [07/25/2013] given w/out incident 8Admin Note: vis sheet given. 9Admin Note: historial data 10Result Comment: [id number] 11Admin Note: mass bio 12Admin Note: sanofi [...] USE., # 36 Gm, 3 Refills, [facility], 90, INHALE 2 PUFFS BY MOUTH TWO TIMES A DAY RINSE MOUTH AFTER EVERY USE., 177, cm, 10/19/21 10:00:00 EST, Height, 108, kg... Start Date: 12/21/21 Status: Ordered amitriptyline 100 mg oral tablet 1 tablet = 100 mg, By Mouth, Daily at bedtime, # 90 tablet, 3 Refills, Maintenance, 06/02/21 11:36:00 EDT, [facility], [facility] 177, cm, 06/02/21 11:35:00 EDT, Height, 108, kg, 05/24/21 19:44:00 EDT, Dry Weight Start Date: 06/02/21 Stop Date: 05/28/22 Status: Ordered amLODIPine 10 mg oral tablet 10 mg, 1, tablet, By Mouth, Daily, # 90 tablet, Refills 1, Tot. Refills 1, Maintenance, 05/28/22 11:36:00 EDT, Route to Pharmacy Electronically, [facility], 177, cm, 10/19/21 10:00:00EST, Height, 108, [...] Maintenance, 09/16/21 9:24:00 EST, ER Tablet, [facility], increase in dose, 177, cm, 06/02/21 11:35:00 EDT, Height, 108, kg, 05/24/21 19:44:00 EDT, Dry Weight Start Date: 09/16/21 Stop Date: 09/11/22 Status: Ordered busPIRone 10 mg oral tablet 15 mg, 1.5, tablet, By Mouth, 2 times a day, # 270 tablet, Refills 3, Tot. Refills 3, Maintenance, 09/16/21 9:24:00 EST, Route to Pharmacy Electronically, [facility], 177, cm, 06/02/21 11:35:00 EDT, Height, 108, kg, 05/24/21 19:44:00 E... Start Date: 09/16/21 Stop Date: 09/11/22 Status: Ordered cetirizine 10 mg oral tablet 1 tablet, By Mouth, Daily, PRN NEEDED FOR ALLERGY SYMPTOMS, # 30 tablet, 5 [facility]ills, [facility], 177, cm, 09/16/21 10:06:00 EST, Height, 108, [...] tablet, Refills 0, Tot. Refills 0, Acute 03/08/22 15:13:00 EDT, Spasm for spasm, 02/22/22 15:13:00 EDT, Route to Pharmacy Electronically, [facility], Partial fill upon... Start Date: 02/22/22 Stop Date: 03/08/22 Status: Ordered EPINEPHrine 0.3 mg injectable solution See Instructions, INJECT 0.3 MG INTRAMUSCULAR ONCE NEEDED FOR ANAPHYLAXIS (SEVERE ALLERGY), # 2 Unknown, 1 Refills, [facility], 177, cm, 06/02/21 11:35:00 EDT, Height, 108, kg, 05/24/21 19:44:00 EDT, Dry Weight Start Date: 09/08/21 Status: Ordered gabapentin 300 mg oral capsule See Instructions, TAKE 3 CAPSULES BY MOUTH IN THE MORNING, 3 CAPSULES EARLY PM AND 4 CAPSULES AT BEDTIME., # 900 capsule, Refills 3, Instructions Replace Required Details, Route to Pharmacy Electronically, [facility], 177, cm, 12/21/21 8:59:... Start Date: 01/11/22 [...] 02/22/22 15:14:00 EDT, Route to Pharmacy Electronically, [facility], Partial fill upon patient... Start Date: 02/22/22 Stop Date: 03/24/22 Status: Ordered losartan 50 mg oral tablet 50 mg, 1, tablet, By Mouth, Daily, # 90 tablet, Refills 3, Tot. Refills 3, Maintenance, 06/02/21 11:36:00 EDT, Route to Pharmacy Electronically, [facility], lower dose, 177, cm, 06/02/21 11:35:00 EDT, Height, 108, kg, 05/24/21 19:44:00... Start Date: 06/02/21 Stop Date: 05/28/22 Status: Ordered Mapap Arthritis Pain 650 mg oral tablet, extended release 2 tablet, By Mouth, Every 8 hours, PRN NEEDED FOR PAIN FOR, for 30 days, # 90 tablet, 9 Refills,Physician Stop 10/17/22 9:00:00 EST, 12/21/21 9:00:00 EST, [facility], 177, cm, 12/21/21 8:59:00 EST, [...] 56tablet, 0 Refills, Maintenance, 02/15/22 7:16:00 EDT, [facility], 177, cm, 228:59:00 EST, Height, 114.4, kg, 02/14/22 21:57:00 E... [...] 01/11/22 15:16:00 EDT, Route to Pharmacy Electronically, [facility], Partial fill uponpatient request if the prescription is for a schedu... Start Date: 01/11/22 Stop Date: 07/10/22 Status: Ordered Ventolin HFA 108 mcg/inh inhalation aerosol with adapter 2 puffs, Inhalation, 4 times a day, PRN NEEDED FOR WHEEZING, # 18 Gm, 6 Refills, 12/28/21 11:00:00 EST, [facility], 177, cm, 12/21/21 8:59:00 EST, Height, 108, kg, 05/24/21 19:44:00 EDT, Dry Weight Start Date: 12/28/21 Status: Ordered Zofran 4 mg oral tablet 1 tablet = 4 mg, By Mouth, Every 8 hours, PRN Nausea & Vomiting, # 12 tablet, 0 Refills, Acute 06/09/22 10:43:00 EDT, 06/09/21 10:43:00 EDT, Tablet, [facility]., Partial fill upon patient request if the prescription is for a schedule II... 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
--- OUTSIDE RECORDS SUMMARY | 2023-12-11 08:29 | XMS_ITS | Continuity of Care Document ---
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 Role Phone Demario Nassar MD Primary Care Physician Encounter [facility] R [id number] Date(s): 07/06/23 - 11/03/23 [facility] [address] [place], [place] [address] Attending Physician: Demario Nassar MD [...] Reason: Other : not documented 2Result Comment: [id number] given w/out incident 3Result Comment: [id number] given w/out incident 4Result Comment: [facility]: [id number] 5Result Comment: [id number] given w/out incident 6Result Comment: [08/17/2018] [facility] [id number] 7Result Comment: [08/31/2017] given w/out incident [facility]: [id number] 8Result Comment: [08/21/2014] given w/o incident...AA 9Result Comment: [07/25/2013] given w/out incident 10Admin Note: vis sheet given. 11Admin Note: historial data 12Result Comment: [id number] 13Admin Note: mass bio 14Admin Note: sanofi [...] tablet, 5 Refills, Maintenance, 07/28/23 13:25:00 EDT, [facility], 167, cm, 05/29/23 18:21:00 EDT, Height, 114.4, kg, 02/14/22 21:57:00 EDT, Dry Weight Start Date: 07/28/23 Status: Ordered Advair HFA 115 mcg / 21 mcg 2 puffs, Inhalation, 2 times a day, AFTER EVERY USE., # 36 Gm, 1 Refills, Maintenance, 07/28/23 13:25:00 [facility], [facility], INHALE 2 PUFFS BY MOUTH TWO TIMES A DAY RINSE MOUTH AFTER EVERYUSE., 167, cm, 05/29/23 18:21:00 EDT, Height, 114.4... Start Date: 07/28/23 Status: Ordered All Day Allergy 10 mg oral tablet 1 tablet, By Mouth, Daily, PRN NEEDED FOR ALLERGY SYMPTOMS, # 30 tablet, 5 Refills, Maintenance,06/20/23 7:39:00 EDT, [facility], 167, cm, 05/29/23 18:21:00 EDT, Height, 114.4, kg, 02/14/22 21:57:00 EDT, Dry Weight Start Date: 06/20/23 Status: Ordered amLODIPine 10 mg oral tablet 10 mg, 1, tablet, By Mouth, Daily, # 90 tablet, Refills 3, Tot. Refills 3, Maintenance, 11/25/22 15:31:00 EST, Route to Pharmacy Electronically, [facility], 177, cm, 12/21/21 8:59:00 EST, Height, 114.4, kg, 02/14/22 21:57:00 EDT, Dry W... Start Date: 11/25/22 Stop Date: 11/20/23 Status: Ordered atorvastatin 40 mg oral tablet 1 tablet, By Mouth, Daily, # 90 tablet, 1 Refills, Maintenance, 02/03/23 16:11:00 EDT, [facility], 167, cm, 12/05/22 10:53:00 EST, Height, [...] 05/29/23 18:09:00 EDT, [facility] sp[facility]actone, 167, cm, 05/29/23 [...] Unknown, 1 Refills, Maintenance, 05/12/23 12:41:00 EDT, [facility], 167, cm, 12/05/22 10:53:00 EST, Height, 114.4, kg, 04/18/22 21:57:00 EDT,... Start Date: 05/12/23 Status: Ordered gabapentin 300 mg oral capsule See Instructions, TAKE 3 CAPSULES BY MOUTH IN THE MORNING, 3 CAPSULES EARLY PM AND 4 CAPSULES AT BEDTIME., # 900 capsule, Refills 3, Maintenance, 12/23/22 13:41:00 EST, Instructions Replace Required Details, Route to Pharmacy Electronically, [facility]... Start Date: 12/23/22 Status: Ordered gloves, large gloves, large, See Instructions, # 50 each, Refills 11, Tot. Refills 11, Maintenance, use when handling soiled linen Dx: N39.4, 03/20/20 17:02:00 EDT, Supply Start Date: 03/20/20 Status: Ordered losartan 100 mg oral tablet 1 tablet = 100 mg, By Mouth, Daily, # 90 tablet, 4 Refills, Maintenance, 05/29/23 18:09:00 EDT, Tablet, [facility]., increase in dose, 167, cm, [...] 56 tablet, 0 Refills, Maintenance,11/02/23 13:25:00 EST, [facility]., 167, cm, 05/29/23 18:21:00 EDT, [...] Gm, 5 Refills, Maintenance, 05/03/23 18:41:00 EDT, [facility], 167, cm, 12/05/22 10:53:00 EST, [...] Team Personnel Name: Ermelinda Rice RN Position: [facility] RN Member Role: Primary Care Nurse Name: Tri Sebastian RN Position: [facility] RN Member Role: Primary Care Nurse Name: Demario Nassar MD Position: [facility] Physician - Primary Care Member Role: PCP Address: Address: [address] [place] [address] Adult [place] [address]- Care Team Related Persons Name: JENSEN EPIFANIO Address: [address] [address] Name: DEUCE SEE
--- OUTSIDE RECORDS SUMMARY | 2023-12-11 08:29 | XMS_ITS | Continuity of Care Document ---
Author Name Unknown Organization [facility] Address [address] [place] [address]- Care Team Providers Care Information Technology Manager Name Role Phone Cesario SCHULER, Demario Primary Care Physician Encounter [facility] Date(s): 08/04/23 - 09/03/23 [facility] [address] [place], [place] [address] Allergies, Adverse Reactions, Alerts [...] Reason: Other : not documented 2Result Comment: [id number] given w/out incident 3Result Comment: [id number] given w/out incident 4Result Comment: [facility]: [id number] 5Result Comment: [id number] given w/out incident 6Result Comment: [08/17/2018] [facility] [id number] 7Result Comment: [08/31/2017] given w/out incident [facility]: [id number] 8Result Comment: [08/21/2014] given w/o incident...AA 9Result Comment: [07/25/2013] given w/out incident 10Admin Note: vis sheet given. 11Admin Note: historial data 12Result Comment: [id number] 13Admin Note: mass bio 14Admin Note: sanofi [...] tablet, 5 Refills, Maintenance, 07/28/23 13:25:00 EDT, [facility], 167, cm, 05/29/23 18:21:00 EDT, Height, 114.4, kg, 02/14/22 21:57:00 EDT, Dry Weight Start Date: 07/28/23 Status: Ordered Advair HFA 115 mcg / 21 mcg 2 puffs, Inhalation, 2 times a day, AFTER EVERY USE., # 36 Gm, 1 Refills, Maintenance, 07/28/23 13:25:00 EDT, [facility], 90, INHALE 2 PUFFS BY MOUTH TWO TIMES A DAY RINSE MOUTH AFTER EVERYUSE., 167, cm, 05/29/23 18:21:00 EDT, Height, 114.4... Start Date: 07/28/23 Status: Ordered All Day Allergy 10 mg oral tablet 1 tablet, By Mouth, Daily, PRN NEEDED FOR ALLERGY SYMPTOMS, # 30 tablet, 5 Refills, Maintenance,06/20/23 7:39:00 EDT, [facility], 167, cm, 05/29/23 18:21:00 EDT, Height, 114.4, kg, 02/14/22 21:57:00 EDT, Dry Weight Start Date: 06/20/23 Status: Ordered amLODIPine 10 mg oral tablet 10 mg, 1, tablet, By Mouth, Daily, # 90 tablet, Refills 3, Tot. Refills 3, Maintenance, 11/25/22 15:31:00 EST, Route to Pharmacy Electronically, [facility], 177, cm, 12/21/21 8:59:00 EST, Height, 114.4, kg, 02/14/22 21:57:00 EDT, Dry W... Start Date: 11/25/22 Stop Date: 11/20/23 Status: Ordered atorvastatin 40 mg oral tablet 1 tablet, By Mouth, Daily, # 90 tablet, 1 Refills, Maintenance, 02/03/23 16:11:00 EDT, [facility]., 167, cm, 12/05/22 10:53:00 EST, Height, [...] 18:09:00 EDT, [facility], replaces spiron[facility]actone, 167, cm, 05/29/23 17:54:00 [...] Unknown, 1 Refills, Maintenance, 05/12/23 12:41:00 EDT, [facility], 167, cm, 12/05/22 10:53:00 EST, Height, 114.4, kg, 02/14/22 21:57:00 EDT,... Start Date: 05/12/23 Status: Ordered gabapentin 300 mg oral capsule See Instructions, TAKE 3 CAPSULES BY MOUTH IN THE MORNING, 3 CAPSULES EARLY PM AND 4 CAPSULES AT BEDTIME., # 900 capsule, Refills 3, Maintenance, 12/23/22 13:41:00 EST, Instructions Replace Required Details, Route to Pharmacy Electronically, [facility]... Start Date: 12/23/22 Status: Ordered gloves, large gloves, large, See Instructions, # 50 each, Refills 11, Tot. Refills 11, Maintenance, use when handling soiled linen Dx: N39.4, 03/20/20 17:02:00 EDT, Supply Start Date: 03/20/20 Status: Ordered losartan 100 mg oral tablet 1 tablet = 100 mg, By Mouth, Daily, # 90 tablet, 4 Refills, Maintenance, 05/29/23 18:09:00 EDT, Tablet, [facility], increase in dose, 167, cm, 05/29/23 [...] 56 tablet, 0 Refills, Maintenance,08/04/23 17:31:00 EDT, [facility], may fill no earlier than 08/08/23, [...] Gm, 5 Refills, Maintenance, 05/03/23 18:41:00 EDT, [facility], 167, cm, 12/05/22 10:53:00 EST, Height, [...] Confirmed Active FH: 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 (mom) Confirmed Active long-term current use of opiate analgesic Confirmed Active [...] [facility] SN RN Member Role: Primary Care Nurse Name: Tri Sebastian RN Position: [facility] RN Member Role: Primary Care Nurse Name: Demario Nassar MD Position: [facility] Physician - Primary Care Member Role: PCP Address: Address: [address] [place] [address] Adult & [place] [address]- Care Team Related Persons Name: JENSEN EPIFANIO Address: home [address] [place] [id number] Name: DEUCE SEE
--- OUTSIDE RECORDS SUMMARY | 2023-12-11 08:29 | XMS_ITS | Continuity of Care Document ---
Author Name Unknown Organization [facility] Address [address] [place] [address]- Care Team Providers Care Poured Pipe Maker Name Role Phone Cesario SCHULER, Demario Primary Care Physician Encounter [facility] Date(s): 10/28/22 - 11/27/22 [facility] [address] [place], [place] [address] Allergies, Adverse Reactions, Alerts [...] (oldterm) 12 10/08/07 Give n 1Result Comment: [id number] given w/out incident 2Result Comment: [facility]: [id number] 3Result Comment: [id number] given w/out incident 4Result Comment: [08/17/2018] [facility] [id number] 5Result Comment: [08/31/2017] given w/out incident [facility]: [id number] 6Result Comment: [08/21/2014] given w/o incident...AA 7Result Comment: [07/25/2013] given w/out incident 8Admin Note: vis sheet given. 9Admin Note: historial data 10Result Comment: [id number] 11Admin Note: mass bio 12Admin Note: sanofi [...] Dry Weight Start Date: 11/08/22 Status: Ordered amitriptyline 100 mg oral tablet 0.5 tablet = 50 mg, By Mouth, Daily at bedtime, # 45 tablet, 3 Refills, Maintenance, 06/02/21 11:36:00 EDT, Tablet, [facility]., 177, cm, 06/02/21 11:35:00 EDT, Height, 108, kg, 05/24/21 19:44:00 EDT, Dry Weight Start Date: 06/02/21 Stop Date: 05/28/22 Status: Ordered amLODIPine 10 mg oral tablet 10 mg, 1, tablet, By Mouth, Daily, # 90 tablet, Refills 3, Tot. Refills 3, Maintenance, 11/25/22 15:31:00 EST, Route to Pharmacy Electronically, [facility], 177, cm, 12/21/21 8:59:00 EST, Height, [...] Refills, Maintenance, 10/21/22 12:33:00 EST, ER Tablet, [facility]., increase in dose, 177, cm, 12/21/21 [...] 15:37:00 EDT, Route to Pharmacy Electronically, [facility], replaces spironolactone, 177, cm, 12/21/21 8:59:00 [...] (SEVERE ALLERGY), # 2 Unknown, 1 [facility]ills[facility], 177, cm, 06/02/21 11:35:00 EDT, Height, 108, kg, 05/24/21 19:44:00 EDT, Dry Weight Start Date: 09/08/21 Status: Ordered gabapentin 300 mg oral capsule See Instructions, TAKE 3 CAPSULES BY MOUTH IN THE MORNING, 2 CAPSULES EARLY PM AND 3 CAPSULES AT BEDTIME., # 900 capsule, Refills 3, Instructions Replace Required Details, [facility], 177, cm, 12/21/21 8:59:... Start Date: [...] 4 Refills, Maintenance, 03/31/22 15:03:00 EDT, Tablet, [facility] increase in dose, 177, cm, 12/21/21 8:59:00 EST, Height, 114.4, kg,02/14/22 21:57:00 EDT, Dry Weight Start Date: 03/31/22 Stop Date: 06/24/23 Status: Ordered Mapap Arthritis Pain 650 mg oral tablet, extended release 2 tablet, By Mouth, Every 8 hours, PRN NEEDED FOR PAIN, # 90 tablet, 11 Refills, Maintenance, 08/12/22 10:25:00 EDT, [facility], 177, cm, 12/21/21 8:59:00 EST, Height, [...] 12/23/22 15:36:00 EST, 11/25/22 15:36:00 EST, Tablet, [facility] Partial fill upon patient request if the prescrip... Start Date: 11/25/22 Stop Date: 12/23/22 Status: Ordered OxyCONTIN 15 mg oral tablet, extended release 1 tablet = 15 mg, By Mouth, Every 12 hours, PRN Pain , Severe, # 56 tablet, 0 Refills, Maintenance,11/21/22 17:49:00 EST, [facility] resent, 177, cm, 12/21/21 8:59:00 EST, Height, 114.4, kg, 02/14/22 21:57:00 EDT, Dry Weight Start Date: 11/21/22 Stop Date: 12/19/22 Status: Ordered Periwash Perineal cleaning solution Periwash [...] Gm, 5 Refills, Maintenance, 07/08/22 10:48:00 EDT, [facility], 177, cm, 12/21/21 8:59:00 EST, Height, 114.4, kg, 02/14/22 21:57:00 EDT, Dry Weight Start Date: 07/08/22 Status: Ordered zolpidem 10 mg oral tablet 1 tablet, By Mouth, Daily at bedtime, PRN NEEDED FOR INSOMNIA, for 28 days, # 28 tablet, 0 Refills, Acute 12/23/22 15:30:00 EST, 11/25/22 15:30:00 EST, [facility]ill on [facility] 15, 2022, 177, cm, [...] Confirmed Active FH: 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 (mom) 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
--- OUTSIDE RECORDS SUMMARY | 2023-12-11 08:29 | XMS_ITS | Continuity of Care Document ---
Author Name Unknown Organization [facility] Address [address] [place] [address]- Care Team Providers Care Supervisor Instrument Maintenance Name Role Phone Demario Nassar MD Primary Care Physician Encounter [facility] Date(s): 07/12/22 - 08/11/[address] [address] Attending Physician: AdmDario maloney Admitting Physician: Admtr, [id number] Referring Physician: Admtr Ar8 Allergies, Adverse Reactions, Alerts Substance Reaction [...] (oldterm) 12 10/08/07 Give n 1Result Comment: [id number] given w/out incident 2Result Comment: [facility]: [id number] 3Result Comment: [id number] given w/out incident 4Result Comment: [08/17/2018] [facility] [id number] 5Result Comment: [08/31/2017] given w/out incident [facility]: [id number] 6Result Comment: [08/21/2014] given w/o incident...AA 7Result Comment: [07/25/2013] given w/out incident 8Admin Note: vis sheet given. 9Admin Note: historial data 10Result Comment: [id number] 11Admin Note: mass bio 12Admin Note: sanofi [...] EVERY USE., # 36 Gm, 3 Refills, [facility], 90, INHALE 2 PUFFS BY MOUTH TWO TIMES A DAY RINSE MOUTH AFTER EVERY USE., 177, cm, 10/19/21 10:00:00 EST, Height, 108, kg... Start Date: 12/21/21 Status: Ordered amitriptyline 100 mg oral tablet 0.5 tablet = 50 mg, By Mouth, Daily at bedtime, # 45 tablet, 3 Refills, Maintenance, 06/02/21 11:36:00 EDT, Tablet, [facility]., 177, cm, 06/02/21 11:35:00 EDT, Height, 108, kg, 05/24/21 19:44:00 EDT, Dry Weight Start Date: 06/02/21 Stop Date: 05/28/22 Status: Ordered amLODIPine 10 mg oral tablet 10 mg, 1, tablet, By Mouth, Daily, # 90 tablet, Refills 1, Tot. Refills 1, Maintenance, 05/28/22 11:36:00 EDT, Route to Pharmacy Electronically, [facility], 177, cm, 10/19/21 10:00:00EST, Height, 108, kg, 05/24/21 19:44:00 EDT, Dry We... Start Date: 05/28/22 Stop Date: 11/24/22 Status: Ordered amLODIPine 10 mg oral tablet See Instructions, TAKE 1 TABLET BY MOUTH DAILY, # 90 tablet, 3 Refills, [facility], 177, cm, 12/21/21 8:59:00 EST, [...] Refills, Maintenance, 09/16/21 9:24:00 EST, ER Tablet, [facility]., increase in dose, 177, cm, 06/02/21 11:35:00 EDT, Height, 108, kg, 05/24/21 19:44:00 EDT, Dry Weight Start Date: 09/16/21 Stop Date: 09/11/22 Status: Ordered busPIRone 10 mg oral tablet 15 mg, 1.5, tablet, By Mouth, 2 times a day, # 270 tablet, Refills 3, Tot. Refills 3, Maintenance, 09/16/21 9:24:00 EST, Route to Pharmacy Electronically, [facility], 177, cm, 06/02/21 11:35:00 EDT, Height, 108, kg, 05/24/21 19:44:00 E... Start Date: 09/16/21 Stop Date: 09/11/22 Status: Ordered cetirizine 10 mg oral tablet 1 tablet, By Mouth, Daily, PRN NEEDED FOR ALLERGY SYMPTOMS, # 30 tablet, 5 Refills, 04/16/22 9:35:00 EDT, [facility], 177, cm, 12/21/21 8:59:00 EST, Height, 114.4, kg, 02/14/22 21:57:00 EDT, Dry Weight Start Date: 04/16/22 Status: Ordered chlorthalidone 25 mg oral tablet 25 mg, 1, tablet, By Mouth, Daily, # 90 tablet, Refills 3, Tot. Refills 3, Maintenance, 08/02/22 15:37:00 EDT, Route to Pharmacy Electronically, [facility], replaces spironolactone, 177, cm, 12/21/21 8:59:00 [...] (SEVERE ALLERGY), # 2 Unknown, 1 Refills, [facility], 177, cm, 06/02/21 11:35:00 EDT, Height, 108, kg, 05/24/21 19:44:00 EDT, Dry Weight Start Date: 09/08/21 Status: Ordered gabapentin 300 mg oral capsule See Instructions, TAKE 3 CAPSULES BY MOUTH IN THE MORNING, 2 CAPSULES EARLY PM AND 3 CAPSULES AT BEDTIME., # 900 capsule, Refills 3, Instructions Replace Required Details, Route to Pharmacy Electronically, [facility], 177, cm, 12/21/21 8:59:... Start [...] 08/02/22 15:46:00 EDT, Route to Pharmacy Electronically, [facility], [place]... Start Date: 08/02/22 Stop Date: 10/01/22 Status: Ordered losartan 100 mg oral tablet 1 tablet = 100 mg, By Mouth, Daily, # 90 tablet, 4 Refills, Maintenance, 03/31/22 15:03:00 EDT, Tablet, [facility], increase in dose, 177, cm, 12/21/21 8:59:00 EST, Height, 114.4, kg,02/14/22 21:57:00 EDT, Dry Weight Start Date: 03/31/22 Stop Date: 06/24/23 Status: Ordered Mapap Arthritis Pain 650 mg oral tablet, extended release 2 tablet, By Mouth, Every 8 hours, PRN NEEDED FOR PAIN FOR, for 30 days, # 90 tablet, 9 Refills,Physician Stop 10/17/22 9:00:00 EST, 12/21/21 9:00:00 EST, [facility], 177, cm, 12/21/21 8:59:00 EST, [...] 56 tablet, 0 Refills, Maintenance,07/29/22 15:45:00 EDT, [facility], do not refill earlier than 07/04/22, [...] Gm, 5 Refills, Maintenance, 07/08/22 10:48:00 EDT, [facility], 177, cm, 12/21/21 8:59:00 EST, Height, 114.4, kg, 02/14/22 21:57:00 EDT, Dry Weight Start Date: 07/08/22 Status: Ordered zolpidem 10 mg oral tablet 1 tablet, By Mouth, Daily at bedtime, PRN NEEDED FOR INSOMNIA, for 28 days, # 28 tablet, 0 Refills, Acute 08/17/22 15:47:00 EDT, 07/20/22 15:47:00 EDT, [facility], refill on April 15, 2022, 177, [...] Confirmed Active FH: 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 (mom) 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
--- OUTSIDE RECORDS SUMMARY | 2023-12-11 08:29 | XMS_ITS | Continuity of Care Document ---
Author Name Unknown Organization [facility] Address [address] [place] [address]- Care Team Providers Care Qa Analyst Name Role Phone Demario Nassar MD Primary Care Physician Encounter [facility] [place] Date(s): 12/22/20 - 01/21/21 [facility] [address] [place], [place] [address] Allergies, Adverse Reactions, Alerts Substance Reaction Severity [...] n 1Result Comment: [facility]: [id number] 2Result Comment: [id number] given w/out incident 3Result Comment: [08/17/2018] [facility] [id number] 4Result Comment: [08/31/2017] given w/out incident [facility]: [id number] 5Result Comment: [08/21/2014] given w/o incident...AA 6Result Comment: [07/25/2013] given w/out incident 7Admin Note: vis sheet given. 8Admin Note: historial data 9Result Comment: [id number] 10Admin Note: mass bio 11Admin Note: sanofi [...] each, 3 Refills,Maintenance, 04/16/20 10:16:00 EDT, Aerosol, [facility], replaces Rx for symbicort not covered by her insurance, 2 puffs Inhalation 2... Start Date: 04/16/20 Stop Date: 04/11/21 Status: Ordered amitriptyline 100 mg oral tablet 1.5 tablet = 150 mg, By Mouth, Daily at bedtime, # 135 tablet, 3 Refills, Maintenance, 04/16/20 10:16:00 EDT, Tablet, [facility] 167, cm, 01/14/20 9:59:00 EDT, Height Start Date: 04/16/20 Stop Date: 04/11/21 Status: Ordered amLODIPine 10 mg oral tablet 10 mg, 1, tablet, By Mouth, Daily, # 90 tablet, Refills 3, Tot. Refills 3, Maintenance, 04/16/20 10:16:00 EDT, Route to Pharmacy Electronically, [facility], 167, cm, 01/14/20 9:59:00 EDT, [...] 3 Refills, Maintenance, 05/11/20 9:45:00 EDT, Tablet, [facility], 167, cm, 01/14/20 9:59:00 EDT, Height Start Date: 05/11/20 Stop Date: 05/06/21 Status: Ordered buPROPion 300 mg/24 hours (XL) oral tablet, extended release 1 tablet = 300 mg, By Mouth, Daily, # 90 tablet, 3 Refills, Maintenance, 09/29/20 14:40:00 EST, ER Tablet, [facility], increase in dose, 167, cm, 01/14/20 9:59:00 EDT, Height Start Date: 09/29/20 Stop Date: 09/24/21 Status: Ordered busPIRone 10 mg oral tablet 10 mg, 1, tablet, By Mouth, 2 times a day, # 180 tablet, Refills 3, Tot. Refills 3, Maintenance, 07/07/20 12:31:00 EDT, Route to Pharmacy Electronically, [facility], 167, cm, 209:59:00 EDT, Height Start Date: 07/07/20 Stop Date: 07/02/21 Status: Ordered cetirizine 10 mg oral tablet 1 tablet = 10 mg, By Mouth, Daily, PRN for allergy symptoms, # 30 tablet, 8 Refills, Maintenance, 09/01/20 17:26:00 EST, Tablet, [facility], 167, cm, 01/14/20 9:59:00 EDT, Height Start Date: 09/01/20 Stop Date: 05/29/21 Status: Ordered chlorthalidone 25 mg oral tablet 25 mg, 1, tablet, By Mouth, Daily, # 90 tablet, Refills 3, Tot. Refills 3, Maintenance, 04/16/20 10:15:00 EDT, Route to Pharmacy Electronically, [facility], replaces hydrochlorothiazide, 167, cm, 01/14/20 [...] kit, 1 Refills, Soft Stop,04/16/20 10:16:00 EDT, [facility], 167, cm, 01/14/20 9:59:00 EDT, Height Start Date: 04/16/20 Status: Ordered FLUoxetine 20 mg oral capsule 3, capsule, By Mouth, Daily, # 270 capsule, Refills 3, Tot. Refills 0, Maintenance, 02/21/20 15:09:00 EDT, Route to Pharmacy Electronically, [facility], 167, cm, 01/14/20 9:59:00 EDT, Height [...] 01/14/20 10:17:00 EDT, [facility], [facility], cm, 01/14/20 9:59:00 EDT, Height Start Date: 01/14/20 Stop Date: 01/08/21 Status: Ordered Meclizine By Mouth, 3 times a day, 0 Refills, Maintenance, 12/14/18 15:25:26 EST Start Date: 12/14/18 Status: Ordered nystatin topical 109699 u/gm powder See Instructions, APPLY TOPICALLY TO AFFECTED AREA TWO TIMES A DAY FOR 14 DAYS, # 30 Gm, 0 Refills,[facility], [facility], APPLY TOPICALLY TO AFFECTED AREA [...] # 56 tablet, 0 Refills, Hard Stop 02/16/21 7:35:00 EDT, 01/19/21 7:35:00 EDT, ER Tablet, [facility]... Start Date: 01/19/21 Stop Date: 02/16/21 Status: Ordered Periwash Perineal cleaning solution Periwash [...] 04/06/21 11:36:00 EDT, 10/08/20 11:36:00 EST, [facility]ol[facility] replaces proair, 167, cm, 01/14/20 9:59:00 EDT, Height Start Date: 10/08/20 Stop Date: 04/06/21 Status: Ordered zolpidem 10 mg oral tablet 1 tablet = 10 mg, By Mouth, Daily at bedtime, PRN as needed for insomnia, # 28 tablet, 0 Refills, Soft Stop, 01/08/21 15:14:00 EST, [facility] 167, cm, 01/14/20 9:59:00 EDT, Height Start [...]
--- OUTSIDE RECORDS SUMMARY | 2023-12-11 08:29 | XMS_ITS | Continuity of Care Document ---
Author Name Unknown Organization [facility] Address [address] [place] [address]- Care Team Providers Care Medical Office Receptionist Name Role Phone Demario Nassar MD Primary Care Physician Encounter [facility] [place] Date(s): 12/05/22 - 12/12/22 [facility] [address] [place], [place] [address] Encounter Diagnosis Menopause(Discharge Diagnosis) - 12/05/22 Attending Physician: Demario Nassar MD Allergies, Adverse [...] Reason: Other : not documented 2Result Comment: [id number] given w/out incident 3Result Comment: [id number] given w/out incident 4Result Comment: [facility]: [id number] 5Result Comment: [id number] given w/out incident 6Result Comment: [08/17/2018] [facility] [id number] 7Result Comment: [08/31/2017] given w/out incident [facility]: [id number] 8Result Comment: [08/21/2014] given w/o incident...AA 9Result Comment: [07/25/2013] given w/out incident 10Admin Note: vis sheet given. 11Admin Note: historial data 12Result Comment: [id number] 13Admin Note: mass bio 14Admin Note: sanofi [...] 30 tablet, 6 Refills, Maintenance,11/08/22 15:08:00 EST, [facility], 177, cm, 12/21/21 8:59:00 EST, Height, 114.4, kg, 02/14/22 21:57:00 EDT, Dry Weight Start Date: 11/08/22 Status: Ordered amLODIPine 10 mg oral tablet 10 mg, 1, tablet, By Mouth, Daily, # 90 tablet, Refills 3, Tot. Refills 3, Maintenance, 11/25/22 15:31:00 EST, Route to Pharmacy Electronically, [facility], 177, cm, 12/21/21 8:59:00 EST, Height, [...] Refills, Maintenance, 10/21/22 12:33:00 EST, ER Tablet, [facility], increase in dose, 177, cm, 12/21/21 [...] 08/02/22 15:37:00 EDT, Route to Pharmacy Electronically, [facility], replaces spironolactone, 177, cm, 12/21/21 8:59:00 [...] Unknown, 1 Refills, [facility], 177, cm, 06/02/21 11:35:00 EDT, Height, 108, kg, 05/24/21 19:44:00 EDT, Dry Weight Start Date: 09/08/21 Status: Ordered gabapentin 300 mg oral capsule See Instructions, TAKE 3 CAPSULES BY MOUTH IN THE MORNING, 2 CAPSULES EARLY PM AND 3 CAPSULES AT BEDTIME., # 900 capsule, Refills 3, Instructions Replace Required Details, Route to Pharmacy Electronically, [facility], 177, cm, 12/21/21 8:59:... Start Date: 01/11/22 Status: Ordered gloves, large gloves, large, See Instructions, # 50 each, Refills 11, Tot. Refills 11, Maintenance, use when handling soiled linen Dx: N39.4, 03/20/20 17:02:00 EDT, Supply Start Date: 03/20/20 Status: Ordered losartan 100 mg oral tablet 1 tablet = 100 mg, By Mouth, Daily, # 90 tablet, 4 Refills, Maintenance, 03/31/22 15:03:00 EDT, Tablet, [facility]., increase in dose, 177, cm, 12/21/21 8:59:00 EST, Height, 114.4, kg,02/14/22 21:57:00 EDT, Dry Weight Start Date: 03/31/22 Stop Date: 06/24/23 Status: Ordered Mapap Arthritis Pain 650 mg oral tablet, extended release 2 tablet, By Mouth, Every 8 hours, PRN NEEDED FOR PAIN, # 90 tablet, 11 Refills, Maintenance, 08/12/22 10:25:00 EDT, [facility], cm, 12/21/21 8:59:00 EST, Height, [...] 12/23/22 15:36:00 EST, 11/25/22 15:36:00 EST, Tablet, [facility]., Partial fill upon patient request if the prescrip... Start Date: 11/25/22 Stop Date: 12/23/22 Status: Ordered OxyCONTIN 15 mg oral tablet, extended release 1 tablet = 15 mg, By Mouth, Every 12 hours, PRN Pain , Severe, # 56 tablet, 0 Refills, Maintenance,11/21/22 17:49:00 EST, [facility], resent, 177, cm, 12/21/21 8:59:00 EST, [...] Gm, 5 Refills, Maintenance, 07/08/22 10:48:00 EDT, 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 Confirmed Active [...] Diagnosis Diagnosis Type Effective Dates Health Status Clini rm Service Informant Menopause Discharge Diagnosis 12/05/22 Vital Signs Most recent to oldest [Reference Range]: 1 2 Height 167 cm (12/05/22 10:25 AM) Weight 113.1 kg (12/05/22 10:25 AM) Oxygen Saturation [94-100 %] 95 % (12/05/22 10:25 AM) Pulse Rate [55-90 bpm] 84 bpm (12/05/22 10:25 AM) Body Mass Index [18.5-24.99 kg/m2] 40.55 kg/m2 *>HHI* (12/05/22 10:25 AM) Blood Pressure [90-138/55-84 mm Hg] 140/ 76mm Hg *H* (12/05/22 10:37 AM) 148/82mm Hg *H* (12/05/22 10:25 AM) Mode of Delivery (Oxygen) Room air (12/05/22 10:25 AM) Blood pressure sites Arm, left (12/05/22 10:37 AM) Arm, left (12/05/22 10:25 AM) Social History Social History Type Response Smoking Status 5-9 cigarettes (betw een 1/4 to 1/2 pack)/day in last 30 days; Type: Cigarettes entered on: 02/14/22 Sex Note * Fidelina Shepard: PERFORM, SIGN, VERIFY Event Display: Patient Education/Instruction Authored Date: [id number] [facility] Clinical Summary Name EMIGDIO GARCIA Age 52 Years 1970 PCP Cesario SCHULER, Demario PCP [facility]# [id number] Visit Date 12/05/2022 10:10:00 Patient Instructions 1. ??call your front desk assistant for an exam and to discuss options for menopausal symptoms 2. ??refer back to [facility] for your left knee pain. X-ray of your left knee today. 3. ??urine drug screen today per protocol since you are still on oxycodone.?? 4. ??fasting DM lab work today. 5. ??continue efforts at weight loss by portion control. 6. ??use MiraLAX daily for constipation?? 7. flu shot today. Additional Instructions: Scheduled Appointments?? Future Appointments ?No Future Appointments Scheduled Follow-Up Instructions ?? With: Address: When: [facility] [address] [facility] [phone] Comments: dx: left knee pain ortho office will call pt w/appt Diagnosis Obstructive sleep apnea (adult) (pediatric); Asymptomatic menopausal state; Family history of malignant neoplasm of digestive organs; Morbid (severe) obesity due to excess calories; Morbid (severe) obesity due to excess calories; Nausea Medications: Please continue your medications until treatment is completed or stopped by your provider. Discuss any questions related to medications with your provider. New Medications These medications were not printed or sent to your pharmacy Polyethylene Glycol 3350 (MiraLax oral powder for reconstitution) 17 gram Oral Daily. dissolve in water before taking. Refills: 0. Next Dose: Medications to Continue Taking That Have Changed These medications were not printed or sent to your pharmacy - Miscellaneous Rx (8 HOUR ARTHRITIS PAIN RELIE 650 Tablet) TAKE 2 TABLETS BY MOUTH EVERY 8 HOURS NEEDED FOR PAIN FOR 30 DAYS. Refills: 5. Next Dose: Medications to Continue with No [...] 40 mg oral tablet) 1 tab(s) Oral Daily for 90 Days. Refills: 3. Next Dose: BuPROpion (buPROPion 300 mg/24 hours (XL) oral tablet, extended release) 1 tab(s) Oral Daily for 90Days. Refills: 3. Next Dose: BusPIRone (busPIRone 7.5 mg oral tablet) 2 tab(s) Oral twice a day for 30 Days. Next Dose: Cetirizine (All Day Allergy 10 mg oral tablet) 1 tab(s) Oral Daily as needed NEEDED FOR ALLERGY SYMPTOMS. Refills: 6. Next Dose: Chlorthalidone (chlorthalidone 25 mg oral [...] (Advair HFA 115 mcg / 21 mcg) INHALE 2 PUFFS BY MOUTH TWO TIMES A DAY RINSE MOUTH AFTER EVERY USE.. Refills: 3. Next Dose: Gabapentin (gabapentin 300 mg oral capsule) TAKE 3 CAPSULES BY MOUTH IN THE MORNING, 2 CAPSULES EARLY PM AND 3 CAPSULES AT BEDTIME.. Refills: 3. Next Dose: Losartan (losartan 100 mg oral tablet) 1 tab(s) Oral Daily for 90 Days. Refills: 4. Next Dose: Ondansetron (ondansetron 4 mg oral tablet) 1 tab(s) Oral every 8 hours as needed as needed for nausea/vomiting for 28 Days. Refills: 0. Next Dose: Oxycodone (OxyCONTIN 15 mg oral tablet, extended release) 1 tab(s) Oral every 12 hours as needed Pain , Severe for 28 Days. Refills: 0. Next Dose: Pantoprazole (Protonix 40 mg oral delayed release tablet) 1 tab(s) Oral Daily for 90 Days. Refills:3. Next Dose: Zolpidem (zolpidem 10 mg oral tablet) 1 tab(s) Oral Daily at Bedtime as needed NEEDED FOR INSOMNIA for 28 Days. Refills: 0. Next Dose: Allergy Info:?? fentaNYL; Bee Stings; morphine Medications Given This Visit Future Orders ?AST? Order Date:12/05/22?- Complete on or after?12/05/22 ?ALT? Order Date:12/05/22?- Complete on or after?12/05/22 ?Basic Metabolic Panel? Order Date:12/05/22?- Complete on or after?12/05/22 ?Microalbumin Urine? Order Date:12/05/22?- Complete on or after?12/05/22 ?Lipid Panel? Order Date:12/05/22?- Complete on or after?12/05/22 ?Opiate Screen Urine? Order Date:12/05/22?- Complete on or after?12/05/22 ?Cannabinoid Urine Screen? Order Date:12/05/22?- Complete on or after?12/05/22 ?Cocaine Urine Screen? Order Date:12/05/22?- Complete on or after?12/05/22 ?Oxycodone Screen Urine? Order Date:12/05/22?- Complete on or after?12/05/22 ?Benzodiazepine Urine Screen? Order Date:12/05/22?- Complete on or after?12/05/22 ?Methadone Urine? Order Date:12/05/22?- Complete on or after?12/05/22 ?Barbiturate Urine Screen? Order Date:12/05/22?- Complete on or after?12/05/22 ?Amphetamine Urine Screen? Order Date:12/05/22?- Complete on or after?12/05/22 ?Microalbumin Urine? Order Date:12/05/22?- Complete on or after?12/05/22 ?Knee 3 Views Left? Order Date:12/05/22?- Complete on or after?12/05/22 Vital Signs Height 167 cm Weight 113.1 kg BMI 40.55 kg/m2 Blood Pressure 140 mm Hg/76 mm Hg Temperature Pulse Rate 84 bpm Respiratory Rate 02 Sat Mode of Delivery 95 %/Room air You can now view a summary of your hospital visit from the comfort of your home through a free online portal called [employer]. [employer] is a website that allows you to securely view your medical information including discharge summary, medications and follow-up visits. ??You can alsosend a secure electronic message to your doctor???s office to request appointments, renew medications or just ask a question. You can enroll at [email or web address] or register during your next office visit. [...] primary care provider, you may find a [facility] provider by calling [facility] [employer] Link at [phone]. For information about the plan of care including goals and instructions for your diagnosis, please see the patient education orders section of this document. Patient Education Materials?? The content of this educational material or handout may have been modified, supplemented, or adapted from its original content and format to support your individualized medical care. Additional Provider Instructions: 1. call your front desk assistant for an exam and to discuss options for menopausal symptoms 2. refer back to [facility] for your left knee pain. X-ray of your left knee today. 3. urine drug screen today per protocol since you are still on oxycodone. 4. fasting DM lab work today. 5. continue efforts at weight loss by portion control. 6. use MiraLAX daily for constipation 7. flu shot today. Patient Care team information Care Team Personnel Name: Ermelinda Rice RN Position: [facility] RN Member Role: Primary Care Nurse Name: Tri Sebastian RN Position: [facility] RN Member Role: Primary Care Nurse Name: Demario Nassar MD Position: [facility] Primary Care Physician Member Role: PCP Address: Address: [address] [place] [address] Adult & [place] [address]- Care Team Related Persons Name: EPIFANIO STYLES Address: home [address] [place] [id number] Name: DEUCE SEE
--- OUTSIDE RECORDS SUMMARY | 2023-12-11 08:30 | XMS_ITS | Continuity of Care Document ---
Author Name Unknown Organization 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 [address] [place], [place] [address] Attending Physician: Demario Nassar MD Allergies, Adverse Reactions, Alerts Substance Reaction Severity Status morphine C/O: itching Active Bee Stings swelling, loss of consciousness Active fentaNYL C/O: itching Active Immunizations Given and Recorded Vaccine Date Status Refusal Reason influenza virus vaccine, inactivated 1 07/23/19 Gi [...] (oldterm) 10 10/08/07 Give n 1Result Comment: [id number] given w/out incident 2Result Comment: [08/17/2018] [facility] 89326-059-79 3Result Comment: [08/31/2017] given w/out incident [facility]: [id number] 4Result Comment: [08/21/2014] given w/o incident...AA 5Result Comment: [07/25/2013] given w/out incident 6Admin Note: vis sheet given. 7Admin Note: historial data 8Result Comment: [id number] 9Admin Note: mass bio 10Admin Note: sanofi [...] 04/23/19 10:58:48 EDT, Route to Pharmacy Electronically, [id number], [facility] Start Date: 04/23/19 Stop Date: 04/17/20 [...] 04/15/19 17:12:39 EDT, Route to Pharmacy Electronically, [id number], [facility] Start Date: 04/15/19 Stop Date: 04/09/20 [...] Maintenance, 01/22/1911:29:30 EDT, Route to Pharmacy Electronically, [id number], [facility] Pt howie stop cymbalta [...] 05/30/19 13:41:08 EDT, Route to Pharmacy Electronically, [id number], [facility] Start Date: 05/30/19 Stop Date: 05/24/20 Status: Ordered losartan 50 mg oral tablet 50 mg, 1, tablet, By Mouth, Daily, # 90 tablet, Refills 3, Tot. Refills 3, Maintenance, 01/22/19 11:26:31 EDT, Route to Pharmacy Electronically, [id number], [facility], lower dose Start Date: 01/22/19 Stop Date: 01/17/20 Status: Ordered Meclizine By Mouth, 3 times a day, 0 Refills, Maintenance, 12/14/18 15:25:26 EST Start Date: 12/14/18 Status: Ordered nystatin topical 958856 u/gm powder 1 application, Topically, 2 times a day, for 14 days, # 30 Gm, 0 Refills, Acute 10/21/19 11:12:09 EST, 10/07/19 11:12:09 EST, Powder, 1 application Topically 2 times a day,x14 days, 167, cm, 10/07/1910:55:37 EST, Height Start Date: 10/07/19 Stop Date: 10/21/19 Status: Ordered oxycodone 15 mg oral tablet, extended release 1 tablet = 15 mg, By Mouth, Every 12 hours, for 28 days, DX 719.45 hip pain 719.46 knee pain [id number] can request partial refill, # 56 tablet, 0 Refills, Hard Stop 10/28/19 15:13:34 EST, 09/30/19 15:13:34 EST, ER Tablet Start Date: 09/30/19 Stop Date: 10/28/19 Status: Ordered Protonix 40 mg oral delayed [...] Status: Ordered zolpidem 10 mg oral tablet See Instructions, TAKE 1 TABLET BY MOUTH EVERY DAY AT BEDTIME NEEDED FOR SLEEP, # 28 tablet, 0 Refills, Soft Stop, 09/30/19 15:26:03 EST Start Date: 09/30/19 Status: Ordered Problem List Condition Effective Dates [...] oldest [Reference Range]: 1 Height 167 cm (10/07/19 10:55 AM) Weight 111.4 kg (10/07/19 10:55 AM) Oxygen Saturation [94-100 %] 94 % (10/07/19 10:55 AM) Pulse Rate [55-90 bpm] 76 bpm (10/07/19 10:55 AM) Body Mass Index [18.5-24.99] 39.94 *>HHI* (10/07/19 10:55 AM) Blood Pressure [90-138/55-84 mm Hg] 138/ 74mm Hg (10/07/19 10:55 AM) Temperature [96.8-100.4 DegF] 98.6 DegF (10/07/19 10:55 AM) Mode of Delivery (Oxygen) Room air (10/07/19 10:55 AM) Blood pressure sites Arm, right (10/07/19 10:55 AM) Temperature Route Oral (10/07/19 10:55 AM) Social History Social History Type Response Smoking Status Former smoker entered on: 12/04/14 Sex
--- OUTSIDE RECORDS SUMMARY | 2023-12-11 08:30 | XMS_ITS | Continuity of Care Document ---
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 Date(s): 06/07/22 - 07/07/22 [facility] [address], [place] [address] Allergies, Adverse [...] (oldterm) 12 10/08/07 Give n 1Result Comment: [id number] given w/out incident 2Result Comment: [facility]: [id number] 3Result Comment: [id number] given w/out incident 4Result Comment: [08/17/2018] [facility] [id number] 5Result Comment: [08/31/2017] given w/out incident [facility]: [id number] 6Result Comment: [08/21/2014] given w/o incident...AA 7Result Comment: [07/25/2013] given w/out incident 8Admin Note: vis sheet given. 9Admin Note: historial data 10Result Comment: [id number] 11Admin Note: mass bio 12Admin Note: sanofi [...] USE., # 36 Gm, 3 Refills, [facility], 90, INHALE 2 PUFFS BY MOUTH TWO TIMES A DAY RINSE MOUTH AFTER EVERY USE., 177, cm, 10/19/21 10:00:00 EST, Height, 108, kg... Start Date: 12/21/21 Status: Ordered amitriptyline 100 mg oral tablet 0.5 tablet = 50 mg, By Mouth, Daily at bedtime, # 45 tablet, 3 Refills, Maintenance, 06/02/21 11:36:00 EDT, [facility] 177, cm, 06/02/21 11:35:00 EDT, Height, 108, kg, 05/24/21 19:44:00 EDT, Dry Weight Start Date: 06/02/21 Stop Date: 05/28/22 Status: Ordered amLODIPine 10 mg oral tablet 10 mg, 1, tablet, By Mouth, Daily, # 90 tablet, Refills 1, Tot. Refills 1, Maintenance, 05/28/22 11:36:00 EDT, Route to Pharmacy Electronically, [facility], 177, cm, 10/19/21 10:00:00EST, Height, 108, kg, 05/24/21 19:44:00 EDT, Dry We... Start Date: 05/28/22 Stop Date: 11/24/22 Status: Ordered amLODIPine 10 mg oral tablet See Instructions, TAKE 1 TABLET BY MOUTH DAILY, # 90 tablet, 3 Refills, [facility], 177, cm, 12/21/21 8:59:00 EST, [...] Maintenance, 09/16/21 9:24:00 EST, ER Tablet, [facility], increase in dose, 177, cm, 06/02/21 11:35:00 EDT, Height, 108, kg, 05/24/21 19:44:00 EDT, Dry Weight Start Date: 09/16/21 Stop Date: 09/11/22 Status: Ordered busPIRone 10 mg oral tablet 15 mg, 1.5, tablet, By Mouth, 2 times a day, # 270 tablet, Refills 3, Tot. Refills 3, Maintenance, 09/16/21 9:24:00 EST, Route to Pharmacy Electronically, [facility], 177, cm, 06/02/21 11:35:00 EDT, Height, 108, kg, 05/24/21 19:44:00 E... Start Date: 09/16/21 Stop Date: 09/11/22 Status: Ordered cetirizine 10 mg oral tablet 1 tablet, By Mouth, Daily, PRN NEEDED FOR ALLERGY SYMPTOMS, # 30 tablet, 5 Refills, 04/16/22 9:35:00 EDT, [facility], 177, cm, 12/21/21 8:59:00 EST, Height, 114.4, kg, 02/14/22 21:57:00 EDT, Dry Weight Start Date: 04/16/22 Status: Ordered chlorthalidone 25 mg oral tablet 25 mg, 1, tablet, By Mouth, Daily, # 30 tablet, Refills 1, Tot. Refills 1, Maintenance, 04/29/22 14:31:00 EDT, Route to Pharmacy Electronically, [facility], replaces spironolactone, 177, cm, 12/21/21 [...] (SEVERE ALLERGY), # 2 Unknown, 1 Refills, [facility], 177, cm, 06/02/21 11:35:00 EDT, Height, 108, kg, 05/24/21 19:44:00 EDT, Dry Weight Start Date: 09/08/21 Status: Ordered gabapentin 300 mg oral capsule See Instructions, TAKE 3 CAPSULES BY MOUTH IN THE MORNING, 2 CAPSULES EARLY PM AND 3 CAPSULES AT BEDTIME., # 900 capsule, Refills 3, Instructions Replace Required Details, Route to [facility] Electronically, [facility], 177, cm, 12/21/21 8:59:... Start [...] 4 Refills, Maintenance, 03/31/22 15:03:00 EDT, Tablet, [facility], increase in dose, 177, cm, 12/21/21 8:59:00 EST, Height, 114.4, kg,02/14/22 21:57:00 EDT, Dry Weight Start Date: 03/31/22 Stop Date: 06/24/23 Status: Ordered Mapap Arthritis Pain 650 mg oral tablet, extended release 2 tablet, By Mouth, Every 8 hours, PRN NEEDED FOR PAIN FOR, for 30 days, # 90 tablet, 9 Refills,Physician Stop 10/17/22 9:00:00 EST, 12/21/21 9:00:00 EST, [facility], 177, cm, 12/21/21 [...] 56 tablet, 0 Refills, Maintenance,07/01/22 17:39:00 EDT, [facility], do not refill earlier than 07/04/22, 177, [...] 18 Gm, 6 Refills, 12/28/21 11:00:00 EST, [facility], 177, cm, 12/21/21 8:59:00 EST, Height, 108, kg, 05/24/21 19:44:00 EDT, Dry Weight Start Date: 12/28/21 Status: Ordered zolpidem 10 mg oral tablet 1 tablet, By Mouth, Daily at bedtime, PRN NEEDED FOR INSOMNIA, for 28 days, # 28 tablet, 0 Refills, Acute 07/18/22 14:20:00 EDT, 06/20/22 14:20:00 EDT, [facility], refill on April 15, 2022, 177, cm, [...] Team Personnel Name: Demario Nassar MD Address: [address] [place] [address] [facility] [address]
--- OUTSIDE RECORDS SUMMARY | 2023-12-11 08:30 | XMS_ITS | Continuity of Care Document ---
Author Name Unknown Organization [facility] Address [address] [place] [address]- Care Team Providers Care Lead Quality Control Technician Name Role Phone Demario Nassar MD Primary Care Physician Encounter [facility] Date(s): 09/16/21 - 09/23/21 [facility] [address] [place], [place] [address] Attending Physician: Demario Nassar MD Allergies, Adverse [...] (oldterm) 12 10/08/07 Give n 1Result Comment: [id number] given w/out incident 2Result Comment: [facility]: 46876-371-62 3Result Comment: [id number] given w/out incident 4Result Comment: [08/17/2018] [facility] 46236-954-22 5Result Comment: [08/31/2017] given w/out incident [facility]: [id number] 6Result Comment: [08/21/2014] given w/o incident...AA 7Result Comment: [07/25/2013] given w/out incident 8Admin Note: vis sheet given. 9Admin Note: historial data 10Result Comment: [id number] 11Admin Note: mass bio 12Admin Note: sanofi [...] 3 Refills,Maintenance, 05/28/21 18:23:00 EDT, Aerosol, [id number], replaces Rx for symbicort not covered by her insurance, 2 puffs Inhalation 2 times a... Start Date: 05/28/21 Stop Date: 05/23/22 Status: Ordered albuterol 0.083% inhalation solution 3 mL = 2.5 mg, Inhalation, Every 6 hours, PRN for wheezing, Dx: COPD J44.9, # 60 each, 2 Refills, Maintenance, 06/02/21 11:29:00 EDT, Solution, [facility], Partial fill upon patient request if the prescription is for a schedule II opio... Start Date: 06/02/21 Status: Ordered amitriptyline 100 mg oral tablet 1.5 tablet = 150 mg, By Mouth, Daily at bedtime, # 135 tablet, 3 Refills, Maintenance, 06/02/21 11:36:00 EDT, Tablet, [facility]., 177, cm, 06/02/21 11:35:00 EDT, Height, 108, kg, 05/24/21 19:44:00 EDT, Dry Weight Start Date: 06/02/21 Stop Date: 05/28/22 Status: Ordered amLODIPine 10 mg oral tablet 10 mg, 1, tablet, By Mouth, Daily, # 90 tablet, Refills 3, Tot. Refills 3, Maintenance, 06/02/21 11:36:00 EDT, Route to Pharmacy Electronically, [facility], 177, cm, 06/02/21 11:35:00EDT, Height, 108, kg, 05/24/21 19:44:00 EDT, Dry We... Start Date: 06/02/21 Stop Date: 05/28/22 Status: Ordered atorvastatin 20 mg oral tablet 1 tablet = 20 mg, By Mouth, Daily, # 90 tablet, 1 Refills, Maintenance, 07/26/21 13:55:00 EDT, Tablet, [facility], 177, cm, 06/02/21 11:35:00 EDT, Height, [...] 9:24:00 EST, ER Tablet, [facility]., increase in dose, 177, cm, 06/02/21 11:35:00 EDT, Height, 108, kg, 05/24/21 19:44:00 EDT, Dry Weight Start Date: 09/16/21 Stop Date: 09/11/22 Status: Ordered busPIRone 10 mg oral tablet 10 mg, 1, tablet, By Mouth, 2 times a day, # 180 tablet, Refills 3, Tot. Refills 3, Maintenance, 09/16/21 9:24:00 EST, Route to Pharmacy Electronically, [facility], 177, cm, 06/02/21 11:35:00 EDT, Height, 108, kg, 05/24/21 19:44:00 EDT... Start Date: 09/16/21 Stop Date: 09/11/22 Status: Ordered cetirizine 10 mg oral tablet 1 tablet = 10 mg, By Mouth, Daily, PRN for allergy symptoms, # 30 tablet, 2 Refills, Maintenance, 06/01/21 14:45:00 EDT, Tablet, [facility], 177, cm, 05/26/21 12:02:00 EDT, Height, [...] (SEVERE ALLERGY), # 2 Unknown, 1 [facility]ills, [facility], 177, cm, 06/02/21 11:35:00 EDT, Height, 108, kg, 05/24/21 19:44:00 EDT, Dry Weight Start Date: 09/08/21 Status: Ordered FLUoxetine 20 mg oral capsule 3, capsule, By Mouth, Daily, for 90 days, # 270 capsule, Refills 0, Physician Stop, [facility] to Pharm[facility] Electronically, [facility], 177, cm, 06/02/21 11:35:00 EDT, Height, [...] 06/02/21 11:36:00 EDT, Route to Pharmacy Electronically, [facility], lower dose, 177, cm, 06/02/21 11:35:00 EDT, Height, 108, kg, 05/24/21 19:44:00... Start Date: 06/02/21 Stop Date: 05/28/22 Status: Ordered Mapap Arthritis Pain 650 mg oral tablet, extended release See Instructions, TAKE 2 TABLETS BY MOUTH EVERY 8 HOURS NEEDED FOR PAIN FOR 30 DAYS, # 90 tablet, 5 Refills, Acute, [facility], 167, cm, 01/14/20 9:59:00 EDT, Height [...] 56tablet, 0 Refills, Maintenance, 09/01/21 9:49:00 EDT, [facility], Pt requests an early refill for [...] 09/16/21 9:30:00 EST, Route to Pharmacy Electronically, [facility], Partial fill upon patient request if the prescription is for a schedule... Start Date: 09/16/21 Stop Date: 02/13/22 Status: Ordered Ventolin HFA 108 mcg/inh inhalation aerosol with adapter 2 puffs, Inhalation, 4 times a day, PRN for wheezing, for 30 days, # 1 each, 5 Refills, Hard Stop 12/19/21 11:01:00 EST, 06/22/21 11:01:00 EDT, Aerosol, [facility], replaces proair, 177, cm, 06/02/21 11:35:00 EDT, Height, 108, kg, 04/30... Start Date: 06/22/21 Stop Date: 12/19/21 Status: Ordered Zofran 4 mg oral tablet 1 tablet = 4 mg, By Mouth, Every 8 hours, PRN Nausea & Vomiting, # 12 tablet, 0 Refills, Acute 06/09/22 10:43:00 EDT, 06/09/21 10:43:00 EDT, Tablet, [facility]., Partial fill upon patient request if the prescription is for a schedule II... 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 oldest [Reference Range]: 1 Height 177 cm (09/16/21 10:06 AM) Weight 112.1 kg (09/16/21 10:06 AM) Oxygen Saturation [94-100 %] 96 % (09/16/21 10:06 AM) Pulse Rate [55-90 bpm] 81 bpm (09/16/21 10:06 AM) Body Mass Index [18.5-24.99] 35.78 *>HHI* (09/16/21 10:06 AM) Blood Pressure [90-138/55-84 mm Hg] 152/ 94mm Hg *H* (09/16/21 10:06 AM) Temperature [96.8-100.4 DegF] 98.3 DegF (09/16/21 10:06 AM) Mode of Delivery (Oxygen) Room air (09/16/21 10:06 AM) Blood pressure sites Arm, left (09/16/21 10:06 AM) Temperature Route Temporal (09/16/21 10:06 AM) Social History Social History Type Response Smoking Status Former smoker entered on: 12/04/14 Sex
--- OUTSIDE RECORDS SUMMARY | 2023-12-11 08:30 | XMS_ITS | Continuity of Care Document ---
Author Name Unknown Organization [facility] Address [address] [place] [id number]- Care Team Providers Care Career Orientation Teacher Name Role Phone Demario Nassar MD Primary Care Physician [place] [facility] [place]s): 11/11/19 - 02/05/20 [facility] [address] [place] [address] [facility] Attending Physician: Elijah Euceda MD Admitting [...] (oldterm) 10 10/08/07 Give n 1Result Comment: [id number] given w/out incident 2Result Comment: [08/17/2018] [facility] 35130-181-79 3Result Comment: [08/31/2017] given w/out incident [facility][note 3]: [id number] 4Result Comment: [08/21/2014] given w/o incident...AA 5Result Comment: [07/25/2013] given w/out incident 6Admin Note: vis sheet given. 7Admin Note: historial data 8Result Comment: [id number] 9Admin Note: mass bio 10Admin Note: sanofi [...] 04/23/19 10:58:48 EDT, Route to Pharmacy Electronically, [id number], [facility] Start Date: 04/23/19 Stop Date: [...] 04/15/19 17:12:39 EDT, Route to Pharmacy Electronically, [id number], [facility] Start Date: 04/15/19 Stop Date: [...] Maintenance, 01/22/1911:29:30 EDT, Route to Pharmacy Electronically, [id number], [facility], Pt howie stop cymbalta Start Date: [...] 01/14/20 10:17:00 EDT, Route to Pharmacy Electronically, [facility], 167, cm, 01/14/20 9:59:00 EDT, Height Start Date: 01/14/20 Stop Date: 01/08/21 Status: Ordered losartan 50 mg oral tablet 50 mg, 1, tablet, By Mouth, Daily, # 90 tablet, Refills 3, Tot. Refills 3, Maintenance, 01/14/20 10:17:00 EDT, Route to Pharmacy Electronically, [facility], lower dose, 167, cm, 01/14/20 9:59:00 EDT, Height Start Date: 01/14/20 Stop Date: 01/08/21 Status: Ordered Meclizine By Mouth, 3 times a day, 0 Refills, Maintenance, 12/14/18 15:25:26 EST Start Date: 12/14/18 Status: Ordered nystatin topical 740155 u/gm powder See Instructions, APPLY TOPICALLY TO AFFECTED AREA TWO TIMES A DAY FOR 14 DAYS, # 30 Gm, 0 Refills,Acute, [facility], 14, APPLY TOPICALLY TO AFFECTED AREA [...] 9:46:00 EDT, 01/20/20 9:46:00 EDT, ER Tablet, [facility]... Start Date: 01/20/20 Stop Date: 02/17/20 Status: Ordered Protonix 40 mg oral delayed release tablet 1 tablet = 40 mg, By Mouth, Daily, # 90 tablet, 3 Refills, Maintenance, 06/25/19 10:58:45 EDT, EC Tablet Start Date: 04/23/19 Stop Date: 04/17/20 Status: Ordered Ventolin HFA 108 mcg/inh inhalation aerosol with adapter 2 puffs, Inhalation, 4 times a day, PRN for wheezing, # 1 each, 5 Refills, Soft Stop, 01/14/20 10:16:00 EDT, [facility]ol, [facility] replaces proair, 167, cm, 01/14/20 9:59:00 EDT, Height Start Date: 01/14/20 Stop Date: 07/12/20 Status: Ordered Zithromax Z-Bonilla 250 mg oral tablet See Instructions, as directed on package labeling, # 1 pack/packet, 0 Refills, Maintenance, 01/14/20 10:15:00 EDT, [facility] 167, cm, 01/14/20 9:59:00 EDT, Height Start Date: 01/14/20 Status: Ordered zolpidem 10 mg oral tablet 1 tablet = 10 mg, By Mouth, Daily at bedtime, PRN as needed for insomnia, # 28 tablet, 0 Refills, Soft Stop, 01/29/20 12:56:00 EDT, [facility], 167, cm, 01/14/20 [...] (aunt)(Confirmed) Active FH: 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 (mom)(Confirmed) 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
--- OUTSIDE RECORDS SUMMARY | 2023-12-11 08:30 | XMS_ITS | Continuity of Care Document ---
Author Name Unknown Organization [facility] Address [address] [place] [address]- Care Team Providers Care Head Of Cytogenetics Name Role Phone Cesario SCHULER, Demario Primary Care Physician Encounter [facility] Date(s): 11/24/21 - 12/24/21 [facility] [address] [place], [place] [address] Allergies, Adverse Reactions, Alerts Substance Reaction Severity [...] (oldterm) 12 10/08/07 Give n 1Result Comment: [id number] given w/out incident 2Result Comment: [facility]: [id number] 3Result Comment: [id number] given w/out incident 4Result Comment: [08/17/2018] [facility] 45286-479-20 5Result Comment: [08/31/2017] given w/out incident [facility]: [id number] 6Result Comment: [08/21/2014] given w/o incident...AA 7Result Comment: [07/25/2013] given w/out incident 8Admin Note: vis sheet given. 9Admin Note: historial data 10Result Comment: [id number] 11Admin Note: mass bio 12Admin Note: sanofi [...] each, 1 Refills,Maintenance, 10/19/21 14:37:00 EST, Aerosol, [facility], replaces Rx for symbicort not covered by her insurance, 2 puffs Inhalation 2... Start Date: 10/19/21 Stop Date: 04/17/22 Status: Ordered Advair HFA 115 mcg / 21 mcg See Instructions, INHALE 2 PUFFS BY MOUTH TWO TIMES A DAY RINSE MOUTH AFTER EVERY USE., # 36 Gm, 3 Refills, [facility], 90, INHALE 2 PUFFS BY MOUTH TWO TIMES A DAY RINSE MOUTH AFTER EVERY USE., 177, cm, 10/19/21 10:00:00 EST, Height, 108, kg... Start Date: 12/21/21 Status: Ordered amitriptyline 100 mg oral tablet 1.5 tablet = 150 mg, By Mouth, Daily at bedtime, # 135 tablet, 3 Refills, Maintenance, 06/02/21 11:36:00 EDT, Tablet, [facility]., 177, cm, 06/02/21 11:35:00 EDT, Height, 108, kg, 05/24/21 19:44:00 EDT, Dry Weight Start Date: 06/02/21 Stop Date: 05/28/22 Status: Ordered amLODIPine 10 mg oral tablet 10 mg, 1, tablet, By Mouth, Daily, for 90 days, # 90 tablet, Refills 3, Tot. Refills 3, Hard Stop 05/28/22 11:36:00 EDT, 06/02/21 11:36:00 EDT, Route to Pharmacy Electronically, [facility], 177, cm, 06/02/21 11:35:00 EDT, Height, 108,... Start Date: 06/02/21 Stop Date: 05/28/22 Status: Ordered amLODIPine 10 mg oral tablet 10 mg, 1, tablet, By Mouth, Daily, # 90 tablet, Refills 1, Tot. Refills 1, Maintenance, 05/28/22 11:36:00 EDT, Route to Pharmacy Electronically, [facility]., 177, cm, 10/19/21 10:00:00EST, Height, 108, kg, 05/24/21 19:44:00 EDT, Dry We... Start Date: 05/28/22 Stop Date: 11/24/22 Status: Ordered atorvastatin 20 mg oral tablet 1 tablet = 20 mg, By Mouth, Daily, # 90 tablet, 1 Refills, Maintenance, 07/26/21 13:55:00 EDT, Tablet, [facility]., 177, cm, 06/02/21 11:35:00 EDT, [...] 09/16/21 9:24:00 EST, ER Tablet, [facility]., increase in dose, 177, cm, 06/02/21 11:35:00 EDT, Height, 108, kg, 05/24/21 19:44:00 EDT, Dry Weight Start Date: 09/16/21 Stop Date: 09/11/22 Status: Ordered busPIRone 10 mg oral tablet 10 mg, 1, tablet, By Mouth, 2 times a day, # 180 tablet, Refills 3, Tot. Refills 3, Maintenance, 09/16/21 9:24:00 EST, Route to Pharmacy Electronically, [facility], 177, cm, 06/02/21 11:35:00 EDT, Height, 108, kg, 05/24/21 19:44:00 EDT... Start Date: 09/16/21 Stop Date: 09/11/22 Status: Ordered cetirizine 10 mg oral tablet 1 tablet, By Mouth, Daily, PRN NEEDED FOR ALLERGY SYMPTOMS, # 30 tablet, 5 Refills, [facility], 177, cm, 09/16/21 10:06:00 EST, Height, [...] # 2 Unknown, 1 Refills, [facility], 177, cm, 06/02/21 11:35:00 EDT, Height, 108, kg, 05/24/21 19:44:00 EDT, Dry Weight Start Date: 09/08/21 Status: Ordered FLUoxetine 20 mg oral capsule 3, capsule, By Mouth, Daily, for 90 days, # 270 capsule, Refills 0, Physician Stop, [facility], 177, cm, 10/19/21 10:00:00 EST, Height, [...] 06/02/21 11:36:00 EDT, Route to Pharmacy Electronically, [facility], lower dose, 177, cm, 06/02/21 11:35:00 EDT, Height, 108, kg, 05/24/21 19:44:00... Start Date: 06/02/21 Stop Date: 05/28/22 Status: Ordered Mapap Arthritis Pain 650 mg oral tablet, extended release 2 tablet, By Mouth, Every 8 hours, PRN NEEDED FOR PAIN FOR, for 30 days, # 90 tablet, 9 Refills,Physician Stop 10/17/22 9:00:00 EST, 12/21/21 9:00:00 EST, [facility], 177, cm, 12/21/21 8:59:00 EST, Height, [...] 56tablet, 0 Refills, Maintenance, 12/21/21 7:53:00 EST, [facility]., 177, cm, 10/19/2110:00:00 EST, Height, 108, [...] 12/21/21 9:01:00 EST, Route to Pharmacy Electronically, [facility], Partial fill upon patient request if the prescription is for a schedul... Start Date: 12/21/21 Stop Date: 12/16/22 Status: Ordered Ventolin HFA 108 mcg/inh inhalation aerosol with adapter 2 puffs, Inhalation, 4 times a day, PRN NEEDED FOR WHEEZING, # 18 Gm, 6 Refills, [facility], 177, cm, 12/21/21 8:59:00 EST, Height, 108, kg, 05/24/21 19:44:00 EDT, Dry Weight Start Date: 12/23/21 Status: Ordered Zofran 4 mg oral tablet 1 tablet = 4 mg, By Mouth, Every 8 hours, PRN Nausea & Vomiting, # 12 tablet, 0 Refills, Acute 06/09/22 10:43:00 EDT, 06/09/21 10:43:00 EDT, Tablet, [facility], Partial fill upon patient request if the prescription is for a schedule II... 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
--- OUTSIDE RECORDS SUMMARY | 2023-12-11 08:30 | XMS_ITS | Continuity of Care Document ---
Author Name Unknown Organization [facility] Address [address] [place] [address]- Care Team Providers Care Contact Lens Fitter Name Role Phone Cesario SCHULER, Demario Primary Care Physician Encounter [facility] [place] Date(s): 10/19/22 - 11/18/22 [facility] [address] [place], [place] [address] Allergies, Adverse Reactions, Alerts Substance [...] (oldterm) 12 10/08/07 Give n 1Result Comment: [id number] given w/out incident 2Result Comment: [facility]: [id number] 3Result Comment: [id number] given w/out incident 4Result Comment: [08/17/2018] [facility] [id number] 5Result Comment: [08/31/2017] given w/out incident [facility]: [id number] 6Result Comment: [08/21/2014] given w/o incident...AA 7Result Comment: [07/25/2013] given w/out incident 8Admin Note: vis sheet given. 9Admin Note: historial data 10Result Comment: [id number] 11Admin Note: mass bio 12Admin Note: sanofi [...] Maintenance, 06/02/21 11:36:00 EDT, Tablet, [facility], 177, cm, 06/02/21 11:35:00 EDT, Height, 108, kg, 05/24/21 19:44:00 EDT, Dry Weight Start Date: 06/02/21 Stop Date: 05/28/22 Status: Ordered amLODIPine 10 mg oral tablet 10 mg, 1, tablet, By Mouth, Daily, # 90 tablet, Refills 1, Tot. Refills 1, Maintenance, 05/28/22 11:36:00 EDT, Route to Pharmacy Electronically, [facility], 177, cm, 10/19/21 10:00:00EST, Height, 108, kg, 05/24/21 19:44:00 EDT, Dry We... Start Date: 05/28/22 Stop Date: 11/24/22 Status: Ordered amLODIPine 10 mg oral tablet See Instructions, TAKE 1 TABLET BY MOUTH DAILY, # 90 tablet, 3 Refills, [facility], 177, [...] Refills, Maintenance, 10/21/22 12:33:00 EST, ER Tablet, [facility], increase in dose, 177, cm, 12/21/21 8:59:00 [...] 08/02/22 15:37:00 EDT, Route to Pharmacy Electronically, [facility], replaces spironolactone, 177, cm, 12/21/21 8:59:00 EST, [...] (SEVERE ALLERGY), # 2 Unknown, 1 Refills, [facility], 177, cm, 06/02/21 11:35:00 EDT, Height, 108, kg, 05/24/21 19:44:00 EDT, Dry Weight Start Date: 09/08/21 Status: Ordered gabapentin 300 mg oral capsule See Instructions, TAKE 3 CAPSULES BY MOUTH IN THE MORNING, 2 CAPSULES EARLY PM AND 3 CAPSULES AT BEDTIME., # 900 capsule, Refills 3, Instructions Replace Required Details, Route to Pharmacy Electronically, [facility], 177, cm, 12/21/21 8:59:... Start Date: [...] Maintenance, 03/31/22 15:03:00 EDT, Tablet, [facility], increase in dose, 177, cm, 12/21/21 8:59:00 EST, Height, 114.4, kg,02/14/22 21:57:00 EDT, Dry Weight Start Date: 03/31/22 Stop Date: 06/24/23 Status: Ordered Mapap Arthritis Pain 650 mg oral tablet, extended release 2 tablet, By Mouth, Every 8 hours, PRN NEEDED FOR PAIN, # 90 tablet, 11 Refills, Maintenance, 08/12/22 10:25:00 EDT, [facility], 177, cm, 12/21/21 8:59:00 EST, Height, [...] , Severe, # 56 tablet, 0 Refills, Maintenance,10/21/22 12:34:00 EST, [facility]., resent, 177, cm, 12/21/21 8:59:00 EST, Height, 114.4, kg, 02/14/22 21:57:00 EDT, Dry Weight Start Date: 10/21/22 Stop Date: 11/18/22 Status: Ordered Periwash Perineal cleaning solution Periwash [...] Gm, 5 Refills, Maintenance, 07/08/22 10:48:00 EDT, [facility], 177, cm, 12/21/21 8:59:00 EST, Height, 114.4, kg, 02/14/22 21:57:00 EDT, Dry Weight Start Date: 07/08/22 Status: Ordered Problem List Condition Confirmation Course [...] Active FH: 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 (mom) Confirmed Active 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
--- OUTSIDE RECORDS SUMMARY | 2023-12-11 08:30 | XMS_ITS | Continuity of Care Document ---
Author Name Unknown Organization [facility] Address [address] [place] [address]- Care Team Providers Care Armored Car Driver Name Role Phone Demario Nassar MD Primary Care Physician [place] [facility] [place]23 [place] 11/03/23 [facility] [address] [place], [place] [address] Allergies, Adverse Reactions, [...] Reason: Other : not documented 2Result Comment: [id number] given w/out incident 3Result Comment: [id number] given w/out incident 4Result Comment: [facility]: [id number] 5Result Comment: [id number] given w/out incident 6Result Comment: [08/17/2018] [facility] [phone] 7Result Comment: [08/31/2017] given w/out incident [facility]: [id number] 8Result Comment: [08/21/2014] given w/o incident...AA 9Result Comment: [07/25/2013] given w/out incident 10Admin Note: vis sheet given. 11Admin Note: historial data 12Result Comment: [id number] 13Admin Note: mass bio 14Admin Note: sanofi [...] tablet, 5 Refills, Maintenance, 07/28/23 13:25:00 EDT, [facility], 167, cm, 05/29/23 18:21:00 EDT, Height, 114.4, kg, 02/14/22 21:57:00 EDT, Dry Weight Start Date: 07/28/23 Status: Ordered Advair HFA 115 mcg / 21 mcg 2 puffs, Inhalation, 2 times a day, AFTER EVERY USE., # 36 Gm, 1 Refills, Maintenance, 07/28/23 13:25:00 EDT, [facility], 90, INHALE 2 PUFFS BY MOUTH TWO TIMES A DAY RINSE MOUTH AFTER EVERYUSE., 167, cm, 05/29/23 18:21:00 EDT, Height, 114.4... Start Date: 07/28/23 Status: Ordered All Day Allergy 10 mg oral tablet 1 tablet, By Mouth, Daily, PRN NEEDED FOR ALLERGY SYMPTOMS, # 30 tablet, 5 Refills, Maintenance,06/20/23 7:39:00 EDT, [facility], 167, cm, 05/29/23 18:21:00 EDT, Height, 114.4, kg, 02/14/22 21:57:00 EDT, Dry Weight Start Date: 06/20/23 Status: Ordered amLODIPine 10 mg oral tablet 10 mg, 1, tablet, By Mouth, Daily, # 90 tablet, Refills 3, Tot. Refills 3, Maintenance, 11/25/22 15:31:00 EST, Route to Pharmacy Electronically, [facility], 177, cm, 12/21/21 8:59:00 EST, Height, 114.4, kg, 02/14/22 21:57:00 EDT, Dry W... Start Date: 11/25/22 Stop Date: 11/20/23 Status: Ordered atorvastatin 40 mg oral tablet 1 tablet, By Mouth, Daily, # 90 tablet, 1 Refills, Maintenance, 02/03/23 16:11:00 EDT, [facility], 167, cm, 12/05/22 10:53:00 EST, [...] 05/29/23 18:09:00 EDT, [facility] replaces sp[facility]actone, 167, cm, 05/29/23 17:54:00 [...] Unknown, 1 Refills, Maintenance, 05/12/23 12:41:00 EDT, [facility], 167, cm, 12/05/22 10:53:00 EST, Height, 114.4, kg, 02/14/22 21:57:00 EDT,... Start Date: 05/12/23 Status: Ordered gabapentin 300 mg oral capsule See Instructions, TAKE 3 CAPSULES BY MOUTH IN THE MORNING, 3 CAPSULES EARLY PM AND 4 CAPSULES AT BEDTIME., # 900 capsule, Refills 3, Maintenance, 12/23/22 13:41:00 EST, Instructions Replace Required Details, Route to Pharmacy Electronically, [facility] Start Date: 12/23/22 Status: Ordered gloves, large [...] 56 tablet, 0 Refills, Maintenance,11/02/23 13:25:00 EST, [facility]., 167, cm, 05/29/23 18:21:00 EDT, Height, 114.4, [...] Gm, 5 Refills, Maintenance, 05/03/23 18:41:00 EDT, [facility], 167, cm, 12/05/22 10:53:00 EST, [...] Team Personnel Name: Ermelinda Rice RN Position: [facility] RN Member Role: Primary Care Nurse Name: Tri Sebastian RN Position: [facility] RN Member Role: Primary Care Nurse Name: Demario Nassar MD Position: [facility] Physician - Primary Care Member Role: PCP Address: Address: [address] [place] [address] Adult & [place] [address]- Care Team Related Persons Name: EPIFANIO STYLES Address: home [address] [place] [id number] Name: DEUCE SEE
--- OUTSIDE RECORDS SUMMARY | 2023-12-11 08:30 | XMS_ITS | Continuity of Care Document ---
Author Name Unknown Organization [facility] Address [address] [place] [address]- Care Team Providers Care Head Of Store Operations Name Role Phone Demario Nassar MD Primary Care Physician Encounter [facility] [place] Date(s): 04/12/21 - 05/12/21 [facility] [address] [place], [place] [address] Allergies, Adverse Reactions, Alerts [...] (oldterm) 11 10/08/07 Give n 1Result Comment: [facility]: [id number] 2Result Comment: [id number] given w/out incident 3Result Comment: [08/17/2018] [facility] [id number] 4Result Comment: [08/31/2017] given w/out incident [facility]: [id number] 5Result Comment: [08/21/2014] given w/o incident...AA 6Result Comment: [07/25/2013] given w/out incident 7Admin Note: vis sheet given. 8Admin Note: historial data 9Result Comment: [id number] 10Admin Note: mass bio 11Admin Note: sanofi [...] each, 3 Refills,Maintenance, 04/16/20 10:16:00 EDT, Aerosol, [facility], replaces Rx for symbicort not covered by her insurance, 2 puffs Inhalation 2... Start Date: 04/16/20 Stop Date: 04/11/21 Status: Ordered amitriptyline 100 mg oral tablet 1.5 tablet = 150 mg, By Mouth, Daily at bedtime, # 135 tablet, 3 Refills, Maintenance, 04/16/20 10:16:00 EDT, Tablet, [facility]., 167, cm, 01/14/20 9:59:00 EDT, Height Start Date: 04/16/20 Stop Date: 04/11/21 Status: Ordered amLODIPine 10 mg oral tablet 10 mg, 1, tablet, By Mouth, Daily, # 90 tablet, Refills 3, Tot. Refills 3, Maintenance, 04/16/20 10:16:00 EDT, Route to Pharmacy Electronically, [facility], 167, cm, 01/14/20 9:59:00 EDT, Height [...] 3 Refills, Maintenance, 05/11/20 9:45:00 EDT, Tablet, [facility]., 167, cm, 01/14/20 9:59:00 EDT, Height [...] Refills, Maintenance, 09/29/20 14:40:00 EST, ER Tablet, [facility], increase in dose, 167, cm, 01/14/20 9:59:00 EDT, Height Start Date: 09/29/20 Stop Date: 09/24/21 Status: Ordered busPIRone 10 mg oral tablet 10 mg, 1, tablet, By Mouth, 2 times a day, # 180 tablet, Refills 3, Tot. Refills 3, Maintenance, 07/07/20 12:31:00 EDT, Route to Pharmacy Electronically, [facility], 167, cm, 209:59:00 EDT, Height Start Date: 07/07/20 Stop Date: 07/02/21 Status: Ordered cetirizine 10 mg oral tablet 1 tablet = 10 mg, By Mouth, Daily, PRN for allergy symptoms, # 30 tablet, 8 Refills, Maintenance, 09/01/20 17:26:00 EST, Tablet, [facility], 167, cm, 01/14/20 9:59:00 EDT, Height Start Date: 09/01/20 Stop Date: 05/29/21 Status: Ordered chlorthalidone 25 mg oral tablet 25 mg, 1, tablet, By Mouth, Daily, # 90 tablet, Refills 3, Tot. Refills 3, Maintenance, 04/16/20 10:15:00 EDT, Route to Pharmacy Electronically, [facility], replaces hydrochlorothiazide, 167, cm, 01/14/20 9:59:00 [...] kit, 1 Refills, Soft Stop,04/16/20 10:16:00 EDT, [facility], 167, cm, 01/14/20 9:59:00 EDT, Height Start Date: 04/16/20 Status: Ordered FLUoxetine 20 mg oral capsule 3, capsule, By Mouth, Daily, # 270 capsule, Refills 3, Tot. Refills 0, Maintenance, 02/21/20 15:09:00 EDT, Route to Pharmacy Electronically, [facility], 167, cm, 01/14/20 9:59:00 EDT, [...] 01/14/20 10:17:00 EDT, Route to Pharmacy Electronically, [facility], lower dose, 167, cm, 01/14/20 9:59:00 EDT, Height Start Date: 01/14/20 Stop Date: 01/08/21 Status: Ordered Mapap Arthritis Pain 650 mg oral tablet, extended release See Instructions, TAKE 2 TABLETS BY MOUTH EVERY 8 HOURS NEEDED FOR PAIN FOR 30 DAYS, # 90 tablet, 5 Refills, Acute, [facility], 167, cm, 01/14/20 9:59:00 EDT, Height Start Date: 04/15/21 Status: Ordered Meclizine By Mouth, 3 times a day, 0 Refills, Maintenance, 12/14/18 15:25:26 EST Start Date: 12/14/18 Status: Ordered OxyCONTIN 15 mg oral tablet, extended release See Instructions, TAKE 1 TABLET BY MOUTH EVERY 12 HOURS NEEDED FOR SEVERE PAIN FOR 28 DAYS, # 56tablet, 0 Refills, Maintenance, 05/12/21 14:36:00 EDT, [facility], 05/13/21, 167, cm, 01/14/20 9:59:00 EDT, [...] 08/02/21 17:29:00 EDT, 02/03/21 17:29:00 EDT, [facility], [facility] replaces proair, 167, cm, 01/14/20 9:59:00 EDT, Height Start Date: 02/03/21 Stop Date: 08/02/21 Status: Ordered zolpidem 10 mg oral tablet 1 tablet = 10 mg, By Mouth, Daily at bedtime, PRN as needed for insomnia, # 28 tablet, 0 Refills, Soft Stop, 05/07/21 12:55:00 EDT, [facility]., 167, cm, 01/14/20 9:59:00 EDT, Height [...]
--- OUTSIDE RECORDS SUMMARY | 2023-12-11 08:30 | XMS_ITS | Continuity of Care Document ---
Author Name Unknown Organization [facility] Address [address] [place] [address]- Care Team Providers Care Diagnostic Tech Name Role Phone Demario Nassar MD Primary Care Physician Encounter [facility] [place] Date(s): 09/04/23 - 10/04/23 [facility] [address] [place], [place] [address] Allergies, Adverse Reactions, [...] Reason: Other : not documented 2Result Comment: [id number] given w/out incident 3Result Comment: [id number] given w/out incident 4Result Comment: [facility]: [id number] 5Result Comment: [id number] given w/out incident 6Result Comment: [08/17/2018] [facility] [id number] 7Result Comment: [08/31/2017] given w/out incident [facility]: [id number] 8Result Comment: [08/21/2014] given w/o incident...AA 9Result Comment: [07/25/2013] given w/out incident 10Admin Note: vis sheet given. 11Admin Note: historial data 12Result Comment: [id number] 13Admin Note: mass bio 14Admin Note: sanofi [...] tablet, 5 Refills, Maintenance, 07/28/23 13:25:00 EDT, [facility], 167, cm, 05/29/23 18:21:00 EDT, Height, 114.4, kg, 02/14/22 21:57:00 EDT, Dry Weight Start Date: 07/28/23 Status: Ordered Advair HFA 115 mcg / 21 mcg 2 puffs, Inhalation, 2 times a day, AFTER EVERY USE., # 36 Gm, 1 Refills, Maintenance, 07/28/23 13:25:00 EDT, [facility], 90, INHALE 2 PUFFS BY MOUTH TWO TIMES A DAY RINSE MOUTH AFTER EVERYUSE., 167, cm, 05/29/23 18:21:00 EDT, Height, 114.4... Start Date: 07/28/23 Status: Ordered All Day Allergy 10 mg oral tablet 1 tablet, By Mouth, Daily, PRN NEEDED FOR ALLERGY SYMPTOMS, # 30 tablet, 5 Refills, Maintenance,06/20/23 7:39:00 EDT, [facility], 167, cm, 05/29/23 18:21:00 EDT, Height, 114.4, kg, 02/14/22 21:57:00 EDT, Dry Weight Start Date: 06/20/23 Status: Ordered amLODIPine 10 mg oral tablet 10 mg, 1, tablet, By Mouth, Daily, # 90 tablet, Refills 3, Tot. Refills 3, Maintenance, 11/25/22 15:31:00 EST, Route to Pharmacy Electronically, [facility], 177, cm, 12/21/21 8:59:00 EST, Height, 114.4, kg, 02/14/22 21:57:00 EDT, Dry W... Start Date: 11/25/22 Stop Date: 11/20/23 Status: Ordered atorvastatin 40 mg oral tablet 1 tablet, By Mouth, Daily, # 90 tablet, 1 Refills, Maintenance, 02/03/23 16:11:00 EDT, [facility], 167, cm, 12/05/22 10:53:00 EST, [...] 05/29/23 18:09:00 EDT, [facility], replaces spironolactone, 167, cm, 05/29/23 [...] Unknown, 1 Refills, Maintenance, 05/12/23 12:41:00 EDT, [facility], 167, cm, 12/05/22 10:53:00 EST, Height, 114.4, kg, 02/14/22 21:57:00 EDT,... Start Date: 05/12/23 Status: Ordered gabapentin 300 mg oral capsule See Instructions, TAKE 3 CAPSULES BY MOUTH IN THE MORNING, 3 CAPSULES EARLY PM AND 4 CAPSULES AT BEDTIME., # 900 capsule, Refills 3, Maintenance, 12/23/22 13:41:00 EST, Instructions Replace Required Details, Route to Pharmacy Electronically, [facility] Start Date: 12/23/22 Status: Ordered gloves, large gloves, large, See Instructions, # 50 each, Refills 11, Tot. Refills 11, Maintenance, use when handling soiled linen Dx: N39.4, 03/20/20 17:02:00 EDT, Supply Start Date: 03/20/20 Status: Ordered losartan 100 mg oral tablet 1 tablet = 100 mg, By Mouth, Daily, # 90 tablet, 4 Refills, Maintenance, 05/29/23 18:09:00 EDT, Tablet, [facility], increase in dose, 167, cm, 05/29/23 [...] , Severe, # 56 tablet, 0 Refills, Maintenance,09/04/23 19:54:00 EST, [facility], may fill no earlier than 08/08/23, 167, cm, 05/29/23 18:21:00 EDT, Height, 114.4, kg, 02/14/22 21:57... Start Date: 09/04/23 Stop Date: 10/02/23 Status: Ordered Protonix 40 mg oral delayed [...] Gm, 5 Refills, Maintenance, 05/03/23 18:41:00 EDT, [facility], 167, cm, 12/05/22 10:53:00 EST, Height, [...] Confirmed Active FH: 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 (mom) Confirmed Active prison current use of opiate analgesic Confirmed Active [...] Team Personnel Name: Ermelinda Rice RN Position: [facility] RN Member Role: Primary Care Nurse Name: Tri Sebastian RN Position: [facility] RN Member Role: Primary Care Nurse Name: Demario Nassar MD Position: [facility] Physician - Primary Care Member Role: PCP Address: Address: [address] [place] [address] Adult & [place] [address]- Care Team Related Persons Name: EPIFANIO STYLES Address: [address] [address] Name: DEUCE SEE
--- NOTE | 2023-12-11 10:29 | MHC.OFFVISWM ---
Intake VS Expanded 12/11/23 10:45 Height 5 ft 6 in Weight 245 lb 4 oz BMI 39.6 Body Fat % 44.7 Body Fat Mass 96.4 Fat Free Mass 135.6 Visceral Fat Rating 13 Body Water Mass 96.4 Basal Metabolic Rate/Score 1,896 Intake Visit Reasons: TV OBIEE OBIA SOLUTION ARCHITECT Revision SWL BMI 39.6 Allergies morphine Allergy (Mild, Verified 12/11/23 10:29) Shortness of Breath fentanyl Allergy (Unknown, Verified 12/11/23 10:29) Rash bee pollen Allergy (Verified 12/11/23 10:29) bee sting- swelling Medication List - Last Reconciled 12/11/23 by Brent Kumar MD albuterol sulfate 90 mcg/actuation (Ventolin HFA) 1 inh inhalation QID amlodipine 10 mg PO DAILY atorvastatin 40 mg PO DAILY baclofen 5 mg PO TID PRN bupropion HCl 300 mg PO QAM buspirone 7.5 mg PO BID chlorthalidone 25 mg PO DAILY cream base no.105 (bulk) (Base W301 cream) Baclofen 5%, Ketoprofen 10%, Cyclobenzaprine 2%,Bupivicane 2% SIG: apply pea-sized amount 3-5 times daily to painful areas as needed epinephrine 0.3 mg IM Q4H PRN fluticasone propion-salmeterol 115-21 mcg/actuation (Advair HFA) 2 puffs inhalation BID gabapentin 300 mg PO TID losartan 100 mg PO DAILY ondansetron 4 mg PO Q8H oxycodone ER (OxyContin) 15 mg PO Q12H pantoprazole (Protonix) 40 mg PO DAILY polyethylene glycol 3350 (Miralax) 17 grams PO DAILY quetiapine mg PO HPI TV OBIEE OBIA SOLUTION ARCHITECT Revision SWL BMI 39.6 HPI Details Start time: 10.23am, End time: 11.11am ?I spent 43 minutes speaking with the patient on the phone plus an additional 5 minutes reviewing and updating records for a total of 48 minutes HPI Comments History of Present Illness Details Previous weight loss efforts: LSG (pre-sleeve weight: 287lbs, lowest: 220lbs) Wakes up: 9am, Sleeps: 8pm Breakfast: skips Lunch: 2pm (sandwich and fruits) Dinner: 6pm (meat and vegetables and rice Snacks: 12pm (popcorn chips), 4pm (pork chips, popcorn), 7pm (cookies) Exercise: has a stationary bike Fluids: Coffee: none, Tea: 1 cup/d with honey and sweet tea, soda: none, juice: none, ETOH: none PFSH Medical History (Updated 12/11/23 @ 10:47 by Brent Kumar MD) Vertigo Asthma Obstructive sleep apnea treated with continuous positive airway pressure (CPAP) 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 Obstructive sleep apnea syndrome Hip pain Mechanical low back pain Migraine Insomnia Hypercholesteremia 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 Diffuse myofascial pain syndrome Diabetes mellitus type 2, controlled Depression, major, single episode, moderate Anxiety Allergic rhinitis Cervical cancer COPD (chronic obstructive pulmonary disease) Surgical History Tubal ligation status H/O gastric sleeve History of total knee replacement Hx of cholecystectomy Family History (Updated 11/30/23 @ 08:29 by Isabella Anderson CMA) Mother Breast cancer Colon cancer Social History (Updated 07/27/23 @ 10:10 by LANA Dawson) Patient Tobacco Use Status: Former Tobacco user Current occupational status: disabled Current occupation: right hand dominant Assessment & Plan Assessment & Plan (1) Obesity: Code(s): E66.9 - Obesity, unspecified Qualifiers: Obesity type: due to excess calories Obesity classification: adult class 2 (BMI 35 - 39.9) Serious obesity comorbidity presence: with serious comorbidity Body mass index: BMI 39.0-39.9 Qualified Code(s): E66.01 - Morbid (severe) obesity due to excess calories; Z68.39 - Body mass index [BMI] 39.0-39.9, adult Plan: 1.? Plan for lap sleeve gastrectomy revision. If diaphragmatic or ventral hernias are present at time of surgery, these will be repaired laparoscopically as well. Risks and complications were discussed in detail including possible conversion to an open procedure, anastomotic leak, bleeding requiring transfusion, small bowel obstruction, , DVT and pulmonary embolism, cardiac, or pulmonary complications, as terminal make up operator complications such as anastomotic ulcer, insufficient weight loss and vitamin deficiencies. I emphasized the importance of close follow-up, adherence to instructions and good communication. 2. Nutritional counseling. Start with 2 CELEBRATE REBUILD protein (buy at [facility] [employer] [facility]) shakes (ONE scoop EACH in 8oz low fat unsweetened almond milk each) at 9am-11am and 12pm-2pm, 1 protein bar (CELEBRATE protein bars, buy at [facility] [employer] [facility]) at 3pm-5pm, dinner at 6pm (6 forks of protein and 6 forks of salad/vegetables) AND one protein bar after dinner at 6.30pm-8pm. So you do 2 protein shakes, 2 protein bars and one meal per day. Meal to include lean meat (beef, fish, pork, turkey, chicken), or [place] yogurt, or egg whites, or beans with a salad with olive oil and fruits (berries, pears, apples, kiwi). Avoid salt, breads, potatoes, rice, pasta, desserts. 3. Each shake would be drunk slowly, like coffee in a period of 2 hours. 4. Cut each bar in 4 pieces and eat each piece in 30min ?to make each bar last 2 hours. 5. I emphasized the importance of measuring accurately the food portion and measure it when serving the food in plate 6. The meal portions include 10 full-size forks of meat and 10 full-size forks of salad. You always eat the meat portion but you can replace up to 5 forks for salad/vegetables with rice, potatoes or pasta, or a fruit ?if you like. The less you do it the better weight loss will be. 7. One full-size fork is what it can be scooped on the fork without falling aside and not what can be bit with the fork. Use regular forks like those you find in a typical restaurant. 8.? Please send me weight measurements as soon as possible and then once a week. Always include your diet and exercise plan. 9. Start stationary bike at a resistance level of 0.0 Increase level by 1.0 every 3 min to a max level of 6.0. Stay at this level for 3 min and then return to level 0.0 and repeat same steps until 300 calories are burned. Velocity target is 10-12mph. Goal is to burn 2000 calories per week on exercise. 10. Goal is to lose at least 1.5-2lbs per week 11. Goal to lose 10% of your weight before surgery, which is about 25lbs. Ultimate weight goal: 220lbs before surgery 12. Please follow the diet plan exactly without any change. If you don't like something about the plan or you feel hungry you need to communicate with me so I can help you revise the plan. You should not change the plan yourself. Orders: Orders Insulin Today E11.9 - Type 2 diabetes mellitus without complications, E66.9 - Obesity, unspecified, E78.00 - Pure hypercholesterolemia, unspecified, I10 - Essential (primary) hypertension, J45.909 - Unspecified asthma, uncomplicated, Z68.39 - Body mass index [BMI] 39.0-39.9, adult Hemoglobin A1c Today E11.9 - Type 2 diabetes mellitus without complications, E66.9 - Obesity, unspecified, E78.00 - Pure hypercholesterolemia, unspecified, I10 - Essential (primary) hypertension, J45.909 - Unspecified asthma, uncomplicated, Z68.39 - Body mass index [BMI] 39.0-39.9, adult H Pylori Breath Test Today E11.9 - Type 2 diabetes mellitus without complications, E66.9 - Obesity, unspecified, E78.00 - Pure hypercholesterolemia, unspecified, I10 - Essential (primary) hypertension, J45.909 - Unspecified asthma, uncomplicated, Z68.39 - Body mass index [BMI] 39.0-39.9, adult IRON PROFILE Today E11.9 - Type 2 diabetes mellitus without complications, E66.9 - Obesity, unspecified, E78.00 - Pure hypercholesterolemia, unspecified, I10 - Essential (primary) hypertension, J45.909 - Unspecified asthma, uncomplicated, Z68.39 - Body mass index [BMI] 39.0-39.9, adult Comprehensive Met. Panel Today E11.9 - Type 2 diabetes mellitus without complications, E66.9 - Obesity, unspecified, E78.00 - Pure hypercholesterolemia, unspecified, I10 - Essential (primary) hypertension, J45.909 - Unspecified asthma, uncomplicated, Z68.39 - Body mass index [BMI] 39.0-39.9, adult Vitamin B12 and Folate Today E11.9 - Type 2 diabetes mellitus without complications, E66.9 - Obesity, unspecified, E78.00 - Pure hypercholesterolemia, unspecified, I10 - Essential (primary) hypertension, J45.909 - Unspecified asthma, uncomplicated, Z68.39 - Body mass index [BMI] 39.0-39.9, adult C Reactive Protein Today E11.9 - Type 2 diabetes mellitus without complications, E66.9 - Obesity, unspecified, E78.00 - Pure hypercholesterolemia, unspecified, I10 - Essential (primary) hypertension, J45.909 - Unspecified asthma, uncomplicated, Z68.39 - Body mass index [BMI] 39.0-39.9, adult Vitamin A Today E11.9 - Type 2 diabetes mellitus without complications, E66.9 - Obesity, unspecified, E78.00 - Pure hypercholesterolemia, unspecified, I10 - Essential (primary) hypertension, J45.909 - Unspecified asthma, uncomplicated, Z68.39 - Body mass index [BMI] 39.0-39.9, adult Vitamin D 25-OH Total Today E11.9 - Type 2 diabetes mellitus without complications, E66.9 - Obesity, unspecified, E78.00 - Pure hypercholesterolemia, unspecified, I10 - Essential (primary) hypertension, J45.909 - Unspecified asthma, uncomplicated, Z68.39 - Body mass index [BMI] 39.0-39.9, adult FL upper GI w air Today E11.9 - Type 2 diabetes mellitus without complications, E66.9 - Obesity, unspecified, E78.00 - Pure hypercholesterolemia, unspecified, I10 - Essential (primary) hypertension, J45.909 - Unspecified asthma, uncomplicated, Z68.39 - Body mass index [BMI] 39.0-39.9, adult Complete Blood Count Auto Diff Today E11.9 - Type 2 diabetes mellitus without complications, E66.9 - Obesity, unspecified, E78.00 - Pure hypercholesterolemia, unspecified, I10 - Essential (primary) hypertension, J45.909 - Unspecified asthma, uncomplicated, Z68.39 - Body mass index [BMI] 39.0-39.9, adult Lipid Panel Today E11.9 - Type 2 diabetes mellitus without complications, E66.9 - Obesity, unspecified, E78.00 - Pure hypercholesterolemia, unspecified, I10 - Essential (primary) hypertension, J45.909 - Unspecified asthma, uncomplicated, Z68.39 - Body mass index [BMI] 39.0-39.9, adult Zinc Today E11.9 - Type 2 diabetes mellitus without complications, E66.9 - Obesity, unspecified, E78.00 - Pure hypercholesterolemia, unspecified, I10 - Essential (primary) hypertension, J45.909 - Unspecified asthma, uncomplicated, Z68.39 - Body mass index [BMI] 39.0-39.9, adult Vitamin B1 Today E11.9 - Type 2 diabetes mellitus without complications, E66.9 - Obesity, unspecified, E78.00 - Pure hypercholesterolemia, unspecified, I10 - Essential (primary) hypertension, J45.909 - Unspecified asthma, uncomplicated, Z68.39 - Body mass index [BMI] 39.0-39.9, adult TSH reflex Free T4 Today E11.9 - Type 2 diabetes mellitus without complications, E66.9 - Obesity, unspecified, E78.00 - Pure hypercholesterolemia, unspecified, I10 - Essential (primary) hypertension, J45.909 - Unspecified asthma, uncomplicated, Z68.39 - Body mass index [BMI] 39.0-39.9, adult Ferritin Today E11.9 - Type 2 diabetes mellitus without complications, E66.9 - Obesity, unspecified, E78.00 - Pure hypercholesterolemia, unspecified, I10 - Essential (primary) hypertension, J45.909 - Unspecified asthma, uncomplicated, Z68.39 - Body mass index [BMI] 39.0-39.9, adult US abdomen comp w elastography Today E11.9 - Type 2 diabetes mellitus without complications, E66.9 - Obesity, unspecified, E78.00 - Pure hypercholesterolemia, unspecified, I10 - Essential (primary) hypertension, J45.909 - Unspecified asthma, uncomplicated, Z68.39 - Body mass index [BMI] 39.0-39.9, adult XR chest 2V Today E11.9 - Type 2 diabetes mellitus without complications, E66.9 - Obesity, unspecified, E78.00 - Pure hypercholesterolemia, unspecified, I10 - Essential (primary) hypertension, J45.909 - Unspecified asthma, uncomplicated, Z68.39 - Body mass index [BMI] 39.0-39.9, adult ECG 12 lead EKG Today E11.9 - Type 2 diabetes mellitus without complications, E66.9 - Obesity, unspecified, E78.00 - Pure hypercholesterolemia, unspecified, I10 - Essential (primary) hypertension, J45.909 - Unspecified asthma, uncomplicated, Z68.39 - Body mass index [BMI] 39.0-39.9, adult Referrals Nutrition/Dietitian Referral E11.9 - Type 2 diabetes mellitus without complications, E66.9 - Obesity, unspecified, E78.00 - Pure hypercholesterolemia, unspecified, I10 - Essential (primary) hypertension, J45.909 - Unspecified asthma, uncomplicated, Z68.39 - Body mass index [BMI] 39.0-39.9, adult Behavioral Health Referral E11.9 - Type 2 diabetes mellitus without complications, E66.9 - Obesity, unspecified, E78.00 - Pure hypercholesterolemia, unspecified, I10 - Essential (primary) hypertension, J45.909 - Unspecified asthma, uncomplicated, Z68.39 - Body mass index [BMI] 39.0-39.9, adult Telehealth Telehealth Location of provider rendering services: practice address Location of patient: address on file Patient Identification confirmed using: Name, : Yes Telehealth method: voice only Patient verbally consented to treatment: Yes Patient verbally consented to billing insurance company: Yes Patient informed of any privacy concerns related to visit: Yes Minutes spent on Phone/Video with Pt.: 48 Coding Level of Care Code Tele [facility] Pt Level 4 (01351) Diagnoses Class 2 severe obesity due to excess calories with serious comorbidity and body mass index (BMI) of 39.0 to 39.9 in adult E66.01; Z68.39 Obesity type: due to excess calories Obesity classification: adult class 2 (BMI 35 - 39.9) Serious obesity comorbidity presence: with serious comorbidity Body mass index: BMI 39.0-39.9 Time Spent (min) 48
[2023-12-11 10:45] VITALS: BMI 39.6
== END 2023-12-11 11:12 | disposition home or self-care (01) ==
PROVIDERS: PCP Internal Medicine; Visit Provider Surgery
DX: E66.01 Morbid (severe) obesity due to excess calories (principal); Z68.39 Body mass index [BMI] 39.0-39.9, adult
CPT/HCPCS: 99443

== ENCOUNTER → 2023-12-11 08:19 | Outpatient (BNVA) | payer OTHER, SELFPAY | PROVIDERS: PCP Internal Medicine; Visit Provider Surgery ==

== ENCOUNTER 2024-01-03 13:58 | Outpatient (REF) | payer OTHER, SELFPAY ==
--- NOTE | ~2024-01-03 | XR_ITS ---
EXAMINATION: XR BILATERAL HIPS WITH AP PELVIS CLINICAL INFORMATION: Sacral coccygeal disorders, not elsewhere classified Preprocedure for SI joint fusion COMPARISON: None available. TECHNIQUE: AP view of the pelvis and AP and frog lateral views of each hip were obtained. FINDINGS: No fracture. Hip joint spaces are maintained. Small calcification adjacent to the left greater trochanter can be seen with gluteal tendinosis. Alignment is anatomic. Sacroiliac joints and pubic symphysis are normal. Multilevel degenerative changes are seen in the lower lumbar spine. Small calcifications are seen within the pelvis likely representing phleboliths. The distal aspect of a left ureteral catheter is seen in the low pelvis. XR/XR hip BI w PEL1V IMPRESSION: 1. The joint spaces of the hips are well maintained. 2. Degenerative changes of the lower lumbar spine. 3. Left ureteral catheter in place.
--- NOTE | ~2024-01-03 | XR_ITS ---
EXAMINATION: XR CHEST CLINICAL INFORMATION: Obesity, unspecified COMPARISON: None available. TECHNIQUE: 2 views of the chest were obtained. FINDINGS: No significant abnormality is noted involving the heart, lungs, mediastinum or soft tissues. Multilevel degenerative changes of the thoracic spine are seen. XR/XR chest 2V IMPRESSION: No acute cardiopulmonary disease.
[2024-01-03 14:11] LABS: MANUAL DIFF FLAG NO
--- NOTE | 2024-01-03 14:19 | ECG_ITS ---
Test Reason : obesity Blood Pressure : / mmHG Vent. Rate : 074 BPM Atrial Rate : 074 BPM P-R Int : 162 ms QRS Dur : 076 ms QT Int : 418 ms P-R-T Axes : 056 047 054 degrees QTc Int : 463 ms Normal sinus rhythm Nonspecific T wave abnormality Prolonged QT Abnormal ECG No previous ECGs available Referred By: Brent Kumar Electronically Signed By:Ishan Bergman
[2024-01-03 14:22] LABS: Basophils Percent Auto 0.3 % (0-2); Eosinophils Absolute Auto 0.3 X10*3/uL (0.0-0.4); Eosinophils Percent Auto 4.3 % (0-4); Hematocrit 37.7 % (37.0-47.0); Hemoglobin 12.5 g/dl (12.0-16.0); Imm Gran Abs Auto 0.01 X10*3/uL (0.00-0.03); Imm Gran Pct Auto 0.2 % (0.0-0.4); Lymphocytes Absolute Auto 2.7 X10*3/uL (1.2-4.9); Lymphocytes Percent Auto 45.2 % (20-40); Mean Corpuscular HGB Conc 33.2 g/dl (31.0-35.0); Mean Corpuscular Hemoglobin 29.4 pg (27.0-33.0); Mean Corpuscular Volume 88.7 fL (80.0-98.0); Mean Platelet Volume 10.2 fL (9.4-12.3); Monocytes Absolute Auto 0.5 X10*3/uL (0.1-1.2); Monocytes Percent Auto 7.9 % (2-11); Neutrophils Absolute Auto 2.5 x10*3/uL (2.0-8.3); Neutrophils Percent Auto 42.1 % (45-73); Platelet Count 255 X10*3/uL (160-400); Red Blood Count 4.25 X10*6/uL (4.20-5.50); Red Cell Distribution Width 12.3 % (11.0-16.0)
[2024-01-03 14:35] LABS: Estimated Average Glucose 117 mg/dL; Hemoglobin A1C 125.5834 umol/L; Hemoglobin A1c % 5.7 % (<6.0)
[2024-01-03 15:12] LABS: Alanine Aminotransferase 17 U/L (0-31); Alkaline Phosphatase 96 U/L (39-117); Anion Gap 11 (12-20); Aspartate Amino Transferase 20 U/L (5-31); Bilirubin Total 0.8 mg/dL (0.0-1.0); Blood Urea Nitrogen 15 mg/dL (9-16); C Reactive Protein 1.88 mg/dL (< or = 0.50); Calcium 9.8 mg/dL (8.4-10.2); Carbon Dioxide 29 mmol/L (22-29); Chloride 104 mmol/L (96-108); Cholesterol 162 mg/dL (<200); Estimated Glomerular Filt Rate 55; Glucose Random 98 mg/dL (60-115); HDL Cholesterol 44 mg/dL (>40); Iron 79 mcg/dL (30-160); LDL Cholesterol Calculated 97 mg/dL (<100); Percent Iron Saturation 34 % (15-50); Potassium 3.9 mmol/L (3.3-5.1); Sodium 140 mmol/L (135-145); Total Iron Binding Capacity 229 mcg/dL (228-428); Total Protein 7.6 g/dL (6.5-8.0); Triglycerides 107 mg/dL (<150); Unsaturated Iron Binding 150 ug/dL
[2024-01-03 15:19] LABS: Ferritin 206 ng/mL (10-250); Insulin 10 uU/mL (2-29); TSH reflex Free T4 0.74 uIU/mL (0.32-4.0); Vitamin D 25-OH Total 28.8 ng/mL (>30)
[2024-01-03 15:34] LABS: Folate 6.2 ng/mL (> or = 4.0); Vitamin B12 778 pg/mL (200-900)
[2024-01-06 00:34] LABS: Zinc 69 mcg/dL (60-130)
[2024-01-08 05:07] LABS: Vitamin A 34 mcg/dL (38-98)
[2024-01-12 06:14] LABS: Vitamin B1 8 nmol/L (8-30)
== END 2024-01-03 13:59 | disposition home or self-care (01) ==
LOC: HO.XRAY 13:58
PROVIDERS: Absent Provider Surgery; PCP Internal Medicine; Visit Provider Registered Nurse Emergency
DX: E66.9 Obesity, unspecified (principal); I10 Essential (primary) hypertension; E78.00 Pure hypercholesterolemia, unspecified; J45.909 Unspecified asthma, uncomplicated; E11.9 Type 2 diabetes mellitus without complications; M53.3 Sacrococcygeal disorders, not elsewhere classified; Z68.39 Body mass index [BMI] 39.0-39.9, adult
CPT/HCPCS: 36415; 71046; 73521; 80053; 80061; 82306; 82607; 82728; 82746; 83036; 83525; 83540; 84425; 84443; 84590; 84630; 85025; 86140; 93005

== ENCOUNTER → 2024-01-03 14:19 | Outpatient (BNV) | payer OTHER, SELFPAY | PROVIDERS: Absent Provider Surgery; PCP Internal Medicine; Visit Provider Internal Medicine Cardiovascular Disease | DX: I45.81 Long QT syndrome (principal) | CPT/HCPCS: 93010 ==

== ENCOUNTER 2024-01-05 08:18 | Outpatient (AMB) | payer OTHER, SELFPAY ==
[2024-01-05 10:58] VITALS: BMI 40.5
--- NOTE | 2024-01-05 10:58 | MHC.OFFVISWM ---
Intake VS Expanded 01/05/24 10:58 Height 5 ft 6 in Weight 251 lb BMI 40.5 Intake Visit Reasons: TV Follow Up SWL - 1ST Allergies morphine Allergy (Mild, Verified 12/11/23 10:29) Shortness of Breath fentanyl Allergy (Unknown, Verified 12/11/23 10:29) Rash bee pollen Allergy (Verified 12/11/23 10:29) bee sting- swelling HPI TV Follow Up SWL - 1ST HPI Details Start time: 10.43am, End time: 11.03am ?I spent 15 minutes speaking with the patient on the phone plus an additional 5 minutes reviewing and updating records for a total of 20 minutes HPI Comments History of Present Illness Details Is recovering from a kidney stone Has purchased the [employer] shakes and bars Has a stationary bike at home [facility] Medical History (Updated 01/05/24 @ 11:00 by Brent Kumar MD) Vertigo Asthma Obstructive sleep apnea treated with continuous positive airway pressure (CPAP) 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 Obstructive sleep apnea syndrome Hip pain Mechanical low back pain Migraine Insomnia Hypercholesteremia 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 Diffuse myofascial pain syndrome Diabetes mellitus type 2, controlled Depression, major, single episode, moderate Anxiety Allergic rhinitis Cervical cancer COPD (chronic obstructive pulmonary disease) Surgical History Tubal ligation status H/O gastric sleeve History of total knee replacement Hx of cholecystectomy Family History (Updated 11/30/23 @ 08:29 by Isabella Anderson CMA) Mother Breast cancer Colon cancer Social History (Updated 07/27/23 @ 10:10 by LANA Dawson) Patient Tobacco Use Status: Former Tobacco user Current occupational status: disabled Current occupation: right hand dominant Assessment & Plan Assessment & Plan (1) Morbid obesity: Code(s): E66.01 - Morbid (severe) obesity due to excess calories Plan: 1. Try to set up the body composition scale over the weekend and send me weight measurements. If you have difficulties. please bring it to the office so my staff can assist you. 2. Nutritional counseling. Start with 2 CELEBRATE REBUILD protein ([facility] at [facility]) shakes (ONE scoop EACH in 8oz low fat unsweetened almond milk each) at 9am-11am and 12pm-2pm, 1 protein bar (CELEBRATE protein bars, buy at [facility]) at 3pm-5pm, dinner at 6pm (6 forks of protein and 6 forks of salad/vegetables) AND one protein bar after dinner at 6.30pm-8pm. So you do 2 protein shakes, 2 protein bars and one meal per day. Meal to include lean meat (beef, fish, pork, turkey, chicken), or [place] yogurt, or egg whites, or beans with a salad with olive oil and fruits (berries, pears, apples, kiwi). Avoid salt, breads, potatoes, rice, pasta, desserts. 3. Each shake would be drunk slowly, like coffee in a period of 2 hours. 4. Cut each bar in 4 pieces and eat each piece in 30min ?to make each bar last 2 hours. 5. I emphasized the importance of measuring accurately the food portion and measure it when serving the food in plate 6. The meal portions include 10 full-size forks of meat and 10 full-size forks of salad. You always eat the meat portion but you can replace up to 5 forks for salad/vegetables with rice, potatoes or pasta, or a fruit ?if you like. The less you do it the better weight loss will be. 7. One full-size fork is what it can be scooped on the fork without falling aside and not what can be bit with the fork. Use regular forks like those you find in a typical restaurant. 8.? Please send me weight measurements as soon as possible and then once a week. Always include your diet and exercise plan. 9. Start stationary bike at a resistance level of 0.0 Increase level by 1.0 every 3 min to a max level of 6.0. Stay at this level for 3 min and then return to level 0.0 and repeat same steps until 300 calories are burned. Velocity target is 10-12mph. Goal is to burn 2000 calories per week on exercise. Orders: Orders CA stress test Today R94.31 - Abnormal electrocardiogram [ECG] [EKG] CA echo transthorac w con Today R94.31 - Abnormal electrocardiogram [ECG] [EKG] Medications: New cholecalciferol (vitamin D3) 125 mcg PO DAILY 90 caps 0RF E55.9 - Vitamin D deficiency, unspecified Telehealth Telehealth Location of provider rendering services: practice address Location of patient: address on file Patient Identification confirmed using: Name, : Yes Telehealth method: voice only Patient verbally consented to treatment: Yes Patient verbally consented to billing insurance company: Yes Patient informed of any privacy concerns related to visit: Yes Minutes spent on Phone/Video with Pt.: 20 Coding Level of Care Code Tele Est Pt Level 3 (34056) Diagnoses Morbid obesity E66.01 Time Spent (min) 20
== END 2024-01-05 11:04 | disposition home or self-care (01) ==
LOC: HO.HBS 08:18
PROVIDERS: PCP Internal Medicine; Visit Provider Surgery
DX: E66.01 Morbid (severe) obesity due to excess calories (principal); Z68.41 Body mass index [BMI] 40.0-44.9, adult
CPT/HCPCS: 99442

== ENCOUNTER 2024-01-05 09:16 | Outpatient (REF) | payer OTHER, SELFPAY ==
--- NOTE | ~2024-01-05 | US_ITS ---
EXAMINATION: US COMPLETE ABDOMEN WITH LIVER ELASTOGRAPHY CLINICAL INFORMATION: Obesity COMPARISON: None available. TECHNIQUE: Real-time imaging of the abdominal viscera. Noninvasive ultrasound liver fibrosis assessment is performed using Brittany ElastPQ point quantification shear wave elastography (2D-SWE) with a C5-2 MHz transducer. Multiple elastography samples are obtained. FINDINGS: PANCREAS: The visualized pancreatic head and body are normal in appearance. The tail of the pancreas is obscured from visualization by the overlying bowel gas. ABDOMINAL AORTA: The proximal and middle aortic segments are normal in caliber. Distal segment is not visualized INFERIOR VENA CAVA: Visualized portions are normal. LIVER: The liver demonstrates normal size, contour and echogenicity. No focal lesion or intrahepatic biliary duct dilatation. The right lobe measures 17.8 cm in length. The left lobe measures 12.4 cm in length. Portal flow is hepatopedal Shear wave liver elastography median stiffness is 1.53 m/s (reference: normal median stiffness is 1.3 m/s or less). IQR/median stiffness to assess sampling precision is 0.04 (reference: good quality data set is IQR/median stiffness of 0.15 or less). GALLBLADDER: The gallbladder has been surgically removed. COMMON BILE DUCT: Normal in caliber measuring 0.7 cm in diameter. RIGHT KIDNEY: Normal. No hydronephrosis. No renal calculi or focal parenchymal lesions. The kidney measures 10.8 cm in maximum dimension. LEFT KIDNEY: There is normal cortical thickness. There is an echogenic stone measuring 0.4 x 0.4 x 0.5 cm. There is mild echogenic linear structure question calcified vessels in the midpole. The kidney measures 11.5 cm in maximum dimension. SPLEEN: Normal. The spleen measures 10.6 cm in maximum dimension. FREE FLUID: None. US/US abdomen comp w elastography IMPRESSION: Mild hepatic steatosis without focal lesion. Cholecystectomy. Nonobstructive stone midpole left kidney. There is a linear tubular structure in the midpole cortex question vascular calcification. 2. Liver elastography: Median liver stiffness measures 1.53 m/s suggestive of cACLD (ruled out) REFERENCE: Society of Radiologists in Ultrasound Liver Stiffness Thresholds (2019): LIVER STIFFNESS THRESHOLDS: *Liver Stiffness equal or less than 1.3 m/s: High probability of being normal. *Liver Stiffness less than 1.7 m/s: In the absence of other known clinical signs, rules out compensated advanced chronic liver disease. *Liver Stiffness 1.7-2.1 m/s: Suggestive of compensated advanced chronic liver disease but need further test for confirmation. *Liver Stiffness over 2.1 m/s: Rules in compensated advanced chronic liver disease. *Liver Stiffness over 2.4 m/s: Suggestive of clinically significant portal hypertension. QUALITY OF DATA SET: *IQR/Median value equal or less than 0.15 implies a quality data set. *IQR/Median value over 0.15 implies a poor quality data set. SIGNIFICANT CHANGE FROM PRIOR EXAM: Significant change if liver stiffness measurement is 10% or greater from prior exam. OTHER CONSIDERATIONS: The stage of liver fibrosis may be overestimated in the setting of acute hepatitis, liver inflammation, elevated liver function tests, hepatic vascular congestion, obstructive cholestasis, non-fasting state, and infiltrative diseases such as amyloidosis and lymphoma. In some patients with NAFLD, the liver stiffness thresholds for compensated advanced chronic liver disease may be lower. In causes other than viral hepatitis and NAFLD, liver stiffness thresholds are not well established.
== END 2024-01-05 09:17 | disposition home or self-care (01) ==
LOC: HO.US 09:16
PROVIDERS: PCP Internal Medicine; Visit Provider Surgery
DX: I10 Essential (primary) hypertension (principal); E78.00 Pure hypercholesterolemia, unspecified; J45.909 Unspecified asthma, uncomplicated; E11.9 Type 2 diabetes mellitus without complications; E66.01 Morbid (severe) obesity due to excess calories; R94.31 Abnormal electrocardiogram [ECG] [EKG]; E55.9 Vitamin D deficiency, unspecified; Z71.3 Dietary counseling and surveillance; Z63.9 Problem related to primary support group, unspecified; Z68.39 Body mass index [BMI] 39.0-39.9, adult
CPT/HCPCS: 76700; 76981

== ENCOUNTER 2024-01-08 14:13 | Outpatient (AMB) | payer OTHER, SELFPAY ==
--- NOTE | 2024-01-08 13:10 | A.OFFWM_ITS ---
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 Obstructive sleep apnea syndrome Hip pain Mechanical low back pain Migraine Insomnia Hypercholesteremia 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 Diffuse myofascial pain syndrome Diabetes mellitus type 2, controlled Depression, major, single episode, moderate Anxiety Allergic rhinitis Cervical cancer COPD (chronic obstructive pulmonary disease) Surgical History Tubal ligation status H/O gastric sleeve History of total knee replacement Hx of cholecystectomy Family History (Updated 11/30/23 @ 08:29 by Isabella Anderson [facility]) Mother Breast cancer Colon cancer Social History (Updated 07/27/23 @ 10:10 by LANA Dawson) Patient Tobacco Use Status: Former Tobacco user Current occupational status: disabled Current occupation: right hand dominant Behavioral Health Assessment Weight Management Therapy Therapy Notes Details Pt is looking to have weight loss surgery to help improve her health and quality of life. Pt is currently in therapy at [facility] with Clinton Mckinney and psychiatrist Leatha. She reported struggling with medical conditions. She has no history of inpatient psychiatric admissions or problems with drugs or alcohol. Presenting Concerns Referral Source provider Reason for referral weight loss surgery evaluation Precipitating Event obesity Living Situation Current Living Situation Relative's/Guardian's [place] and Rent At risk of losing current housing? No Satisfied with current living situation? Yes Comments Pt lives with her uncle and two adult sons. She rents and her daughter owns the home. Food/Weight/Diet Expectations of change weight loss and maintenance History/Relationship with food Pt stated that she is an emotional eater, she could go all day without eating and loves sweets and pasta. She will often eat out of boredom or sadness in the winter. History/Relationship with dieting sleeve in 2017, 287-190lbs. Binge Eating Do you frequently eat large amounts of food in short periods of time, not feeling physically hungry? No Do you feel out of control when you eat a large amount of food in a short period of time? No Do you eat large amounts of food rapidly and typically alone? No Night Eating Do you wake up at least once during the night to eat? No If you wake up in the night, do you find that it is necessary to eat something in order to fall back asleep? No Do you have little or no appetite in the morning and feel very hungry in the evening, often overeating between dinner and when you go to bed? No Social History Family history and relationship Pt is and has 4 biological children and raised 6 children. (Her ex husbands two children). Also has 4 grandchildren and one on the way. 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 none known Education Preferred learning style Auditory, Verbal, Written, Learn by doing and Visual Currently enrolled in educational program? No Interested in further educational program? No Educational Interests/Skills disabled since 44 when she torn her meniscus and sprained her back. Employment Employment Status Unemployed Wants help to find employment? No Financial Situation Describe current financial situation Occasional struggle Financial assistance? None and Disability Service Service? No Mental Health and Addiction Treatment Current/Past substance abuse? No Current/Past addictive behavior concerns? No Medical and Physical Health Summary Physical exam in the last year? Yes Pain Screening Current pain? Yes Pain in the last few months? Yes Comments Patient stated that in the winter she often struggles with back and knee pain. Medications Is the patient compliant with medications? Yes Does the patient have Mcgarry Guardian in place? Not applicable Does the patient use complimentary health approaches? No Trauma/Abuse History History of trauma? No Questionnaires PHQ-9 Over the last 2 weeks, how often have you been bothered by any of the following problems? 1. Little interest or pleasure in doing things: nearly every day 2. Feeling down, depressed, or hopeless: nearly every day 3. Trouble falling or staying asleep, or sleeping too much: nearly every day 4. Feeling tired or having little energy: nearly every day 5. Poor appetite or overeating: nearly every day 6. Feeling bad about yourself - or that you are a failure or have let yourself or your family down: nearly every day 7. Trouble concentrating on things, such as reading the newspaper or watching television: nearly every day 8. Moving or speaking so slowly that other people could have noticed. Or the opposite - being so fidgety or restless that you have been moving around a lot more than usual: not at all 9. Thoughts that you would be better off or of hurting yourself in some way: not at all Total score: 21 Source: Developed by Drs. Philip Fields, Shante Ye, Marcus Salinas and colleagues, with an educational yodit from [employer]. Binge Eating Scale Group 1 A. I don't feel self-conscious about my wt. or body size when I'm with others. B. I feel concerned about how I look to others, but it normally does not make me fell disappointed with myself C. I do get self-conscious about my appearance and wt. which makes me feel disappointed in myself. D. I feel very self-conscious about my wt. and frequently I feel intense shame and disgust for myself. I try to avoid social contacts because of my self- consciousness. Response Group 1: D Group 2 A. I don't have any difficulty eating slowly in the proper manner. B. Although I seem to gobble down foods, I don't end up feeling stuffed because of eating to much. C. At times, I tend to eat quickly and then, I feel uncomfortably full afterwards. D. I have the habit of bolting down my food, without really chewing it. When this happens I usually feel uncomfortably stuffed because I've eaten to much. Response Group 2: D Group 3 A. I feel capable to control my eating urges when I want to. B. I feel like I have failed to control my eating more than the average person. C. I feel utterly helpless when it comes to feeling in control of my eating urges. D. Because I feel so helpless about controlling my eating I have become very desperate about trying to get control. Response Group 3: D Group 4 A. I don't have the habit of eating when I'm bored. B. I sometimes eat when I'm bored, but often I'm able to get busy and get my mind off food. C. I have a regular habit of eating when I'm bored, but occasionally, I can use some other activity to get my mind off eating. D. I have a strong habit of eating when I'm bored. Nothing seems to help me breath the habit. Response Group 4: C Group 5 A. I'm usually physically hungry when I eat something. B. Occasionally, I eat something on impulse even though I really am not hungry. C. I have the regular habit of eating foods, that I might not really enjoy, to satisfy a hungry feeling even though physically, I don't need the food. D. Although I'm not physically hungry, I get a hungry feeling in my mouth that only seems to be satisfied when I eat a food, like sandwich, that fills my mouth. Sometimes, when I eat the food to satisfy my mouth hunger, I then spit the food out so I won't gain weight. Response Group 5: B Group 6 A. I don't feel any guilt or self-hate after I overeat. B. After I overeat, occasionally I feel guilt or self-hate. C. Almost all the time I experience strong guilt or self-hate after I overeat. Response Group 6: C Group 7 A. I don't lose total control of my eating when dieting even after periods when I overeat. B. Sometimes when I eat a forbidden food on a diet, I feel like I blew it and eat even more. C. Frequently, I have the habit of saying to myself, I've blown it now, why not go all the way, when I overeat on a diet. When that happens I eat more. D. I have a regular habit of starting a strict diets for myself but I break the diets by going on an eating binge. My life seems to be either a feast or famine. Response Group 7: B Group 8 A. I rarely eat so much food that I feel uncomfortably stuffed afterwards. B. Usually about once a month, I each such a quantity of food, I end up feeling very stuffed. C. I have regular periods during the month when I eat large amounts of food, either at mealtime or at snacks. D. I eat so much food that I regularly feel quite uncomfortable after eating and sometimes a bit nauseous. Response Group 8: D Group 9 A. My level of calorie intake does not go up very high or go down very low on a regular basis. B. Sometimes after I overeat, I will try to reduce my caloric intake to almost nothing to compensate for the excess calories I've eaten. C. I have a regular habit of overeating during the night. It seems that my routine is not to be hungry in the morning but overeat in the evening. D. In my adult years, I have had week-long periods where I practically starve myself. This follows periods when I overeat. It seems I live a life of either feast or famine. Response Group 9: C Group 10 A. I usually am able to stop eating when I want to. I know when enough is enough. B. Every so often, I experience a compulsion to eat which I can't seem to control. C. Frequently, I experience strong urges to eat which I seem unable to control, but at other times I can control my eating urges. D. I feel incapable of controlling urges to eat. I have a fear of not being able to stop eating voluntarily. Response Group 10: A Group 11 A. I don't have any problem stopping eating when I feel full. B. I usually can stop eating when I feel full but occasionally overeat leaving me feeling uncomfortably stuffed. C. I have a problem stopping eating once I start and usually I feel uncomfortably stuffed after I eat a meal. D. Because I have a problem not being able to stop eating when I want, I sometimes have to induce vomiting to relieve my stuffed feeling. Response Group 11: B Group 12 A. I seem to eat just as much when I'm with others, Family social gatherings as when I'm by myself. B. Sometimes, when I'm with other persons, I don't eat as much as I want to eat because I'm self-conscious about my eating. C. Frequently, I eat only a small amount of food when others are present, because I'm very embarrassed about my eating. D. I feel so ashamed about overeating that I pick times to overeat when I know no one will see me. I feel like a closet eater. Response Group 12: A Group 13 A. I eat three meals a day with only an occasional between meal snack. B. I eat 3 meals a day, but I also normally snack between meals. C. When I am snacking heavily, I get in the habit of skipping regular meals. D. There are regular periods when I seem to be continually eating, with no planned meals. Response Group 13: D Group 14 A. I don't think much about trying to control unwanted eating urges. B. At least some of the time, I feel my thoughts are pre-occupied with trying to control my eating urges. C. I feel that frequently I spend much time thinking about how much I ate or about trying not to eat anymore. D. It seems to me that most of my waking hours are pre-occupied by thoughts about eating or not eating. I feel like I'm constantly struggling not to eat. Response Group 14: B Group 15 A. I don't think about food a great deal. B. I have strong craving for food but they last only for brief periods of time. C. I have days when I can't seem to think about anything else but food. D. Most of my days seem to be pre-occupied with thoughts about food. I feel like I live to eat. Response Group 15: A Group 16 A. I usually know whether or not I'm physically hungry. I take the right portion of food to satisfy me. B. Occasionally, I feel uncertain about knowing whether or not I'm physically hungry. A these times it's hard to know how much food I should take to satisfy me. C. Even though I might know how many calories I should eat, I don't have any idea what is a normal amount of food for me. Response Group 16: B Binge Eating Score: 26 Score less than 17 Minimal Risk Score between 18-26 Moderate Risk Score between 27-46 High Risk Assessment & Plan Assessment & Plan (1) Depression, major, recurrent, moderate: Code(s): F33.1 - Major depressive disorder, recurrent, moderate (2) History of total knee replacement: Code(s): Z96.659 - Presence of unspecified artificial knee joint (3) H/O gastric sleeve: Code(s): Z90.3 - Acquired absence of stomach [part of] (4) Obesity: Code(s): E66.9 - Obesity, unspecified Qualifiers: Obesity type: due to excess calories Obesity classification: adult class 2 (BMI 35 - 39.9) Serious obesity comorbidity presence: with serious comorbidity Body mass index: BMI 39.0-39.9 Qualified Code(s): E66.01 - Morbid (severe) obesity due to excess calories; Z68.39 - Body mass index [BMI] 39.0- 39.9, adult Plan She has had previous gastric sleeve surgery. Pt should continue working with her mental health providers. she is cleared for surgery if she chooses. Telehealth Telehealth Location of provider rendering services: practice address Location of patient: address on file Patient Identification confirmed using: Name, : Yes Telehealth method: voice only Patient verbally consented to treatment: Yes Patient verbally consented to billing insurance company: Yes Patient informed of any privacy concerns related to visit: Yes Minutes spent on Phone/Video with Pt.: 45 Coding Level of Care Code Tele y Diag Eval (97690) Diagnoses Depression, major, recurrent, moderate F33.1 History of total knee replacement Z96.659 H/O gastric sleeve Z90.3 Class 2 severe obesity due to excess calories with serious comorbidity and body mass index (BMI) of 39.0 to 39.9 in adult E66.01; Z68.39 Obesity type: due to excess calories Obesity classification: adult class 2 (BMI 35 - 39.9) Serious obesity comorbidity presence: with serious comorbidity Body mass index: BMI 39.0-39.9 Time Spent (min) 45
== END 2024-01-08 14:30 ==
LOC: HO.HBST 14:13
PROVIDERS: PCP Internal Medicine; Visit Provider Counselor Mental Health
DX: F33.1 Major depressive disorder, recurrent, moderate (principal); Z96.659 Presence of unspecified artificial knee joint; Z90.3 Acquired absence of stomach [part of]; E66.01 Morbid (severe) obesity due to excess calories; Z68.39 Body mass index [BMI] 39.0-39.9, adult
CPT/HCPCS: 90791

== ENCOUNTER → 2024-01-08 14:13 | Outpatient (BNVA) | payer OTHER, SELFPAY | PROVIDERS: PCP Internal Medicine; Visit Provider Counselor Mental Health | DX: E66.01 Morbid (severe) obesity due to excess calories (principal) | CPT/HCPCS: 97802 ==

== ENCOUNTER 2024-01-08 14:54 | Outpatient (AMB) | payer OTHER, SELFPAY ==
--- NOTE | 2024-01-08 14:31 | A.OFFVIS_ITS ---
Intake Intake Visit Reasons: VIDEO Initial Nutrition SWL Allergies morphine Allergy (Mild, Verified 12/11/23 10:29) Shortness of Breath fentanyl Allergy (Unknown, Verified 12/11/23 10:29) Rash bee pollen Allergy (Verified 12/11/23 10:29) bee sting- swelling HPI Nutrition Presentation Reason for consult elevated BMI Diet Assmnt Details Pt states she hasn't started surgeons nutrition plan . Was having kidney stones, so never started when she first began the program. For the next week, she reports adhering to spiritual fast , will be only having her protein shakes in the PM , nothing all day After her LSG in , Mother was going through cancer and pt reports being an emotional eater. had support from family but would meet up to eat a lot. SWL online classes: none, was having issues accessing them. Previous weight loss methods attempted 2016 LSG (pre-sleeve weight: 287lbs, lowest: 190lbs) was comfortable at the weight 220 Dietary counseling reduction Diagnosis Nutrition problem #1 overweight/obesity As related to (etiology) #1 excess energy intake and physical inactivity As evidenced by (sign/symptom) #1 high BMI Monitoring/Goals Nutrition problem monitoring total energy intake, level of knowledge/skill, total PRO intake and weight Outcome progress progressing Learning/Education Readiness to learn good Stages of change action Educational materials provided Yes Most Recent Diabetes Results: Cholesterol 162 mg/dL (<200) 01/03/24 HDL Cholesterol 44 mg/dL (>40) 01/03/24 Triglycerides 107 mg/dL (<150) 01/03/24 Creatinine 1.04 mg/dL (0.5-1.4) 01/03/24 Blood Urea Nitrogen 15 mg/dL (9-16) 01/03/24 Sodium 140 mmol/L (135-145) 01/03/24 Potassium 3.9 mmol/L (3.3-5.1) 01/03/24 Chloride 104 mmol/L (96-108) 01/03/24 Carbon Dioxide 29 mmol/L (22-29) 01/03/24 Calcium 9.8 mg/dL (8.4-10.2) 01/03/24 AST 20 U/L (5-31) 01/03/24 ALT 17 U/L (0-31) 01/03/24 Total Protein 7.6 g/dL (6.5-8.0) 01/03/24 Albumin 4.0 g/dL (3.5-5.0) 01/03/24 [facility] Medical History (Updated 01/08/24 @ 13:46 by Kathi Joshi) Vertigo Asthma Obstructive sleep apnea treated with continuous positive airway pressure (CPAP) 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 Obstructive sleep apnea syndrome Hip pain Mechanical low back pain Migraine Insomnia Hypercholesteremia 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 Diffuse myofascial pain syndrome Diabetes mellitus type 2, controlled Depression, major, single episode, moderate Anxiety Allergic rhinitis Cervical cancer COPD (chronic obstructive pulmonary disease) Surgical History Tubal ligation status H/O gastric sleeve History of total knee replacement Hx of cholecystectomy Family History (Updated 11/30/23 @ 08:29 by Isabella Anderson CMA) Mother Breast cancer Colon cancer Social History (Updated 07/27/23 @ 10:10 by ALNA Dawson) Patient Tobacco Use Status: Former Tobacco user Current occupational status: disabled Current occupation: right hand dominant Assessment & Plan Assessment & Plan (1) Morbid obesity: Code(s): E66.01 - Morbid (severe) obesity due to excess calories Plan Pt will need another nutrition follow up after she has had more time in the program. will complete classes for review. Telehealth Telehealth Location of provider rendering services: practice address Location of patient: address on file Patient Identification confirmed using: Name, : Yes Telehealth method: voice only Patient verbally consented to treatment: Yes Patient verbally consented to billing insurance company: Yes Patient informed of any privacy concerns related to visit: Yes Minutes spent on Phone/Video with Pt.: 20 Coding Level of Care Code Nutr Indiv Intake (94553) Diagnoses Morbid obesity E66.01 Time Spent (min) 20
== END 2024-01-08 15:45 | disposition home or self-care (01) ==
LOC: HO.HBS 14:55
PROVIDERS: PCP Internal Medicine; Visit Provider Dietitian, Registered
DX: E66.01 Morbid (severe) obesity due to excess calories (principal)

== ENCOUNTER 2024-01-17 10:29 | Day surgery (SDC) | payer OTHER, SELFPAY ==
--- NOTE | 2024-01-16 10:57 | HO.ANESPROP2 ---
Documented by User: Nancy Haney NP 01/16/24 10:58 HPI - Anesthesia Eval Consult details Narrative: 53yo F for Upper Endoscopy PMFSH Active Problems Active Problems: All Active Problems (Updated 01/08/24 @ 16:12 by Brent Kumar MD) Vitamin A deficiency (Acute) Depression, major, recurrent, moderate (Acute) Morbid obesity (Acute) Abnormal EKG (Acute) Vitamin D deficiency (Acute) Vertigo (Acute) Asthma (Acute) Obstructive sleep apnea treated with continuous positive airway pressure (CPAP) (Acute) Depression, major, single episode, moderate (Acute) Anxiety (Acute) Hypercholesteremia (Acute) 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 (Acute) BMI 39.0-39.9,adult (Acute) Obesity (Acute) Tendonitis of left rotator cuff (Acute) Sacroiliac joint dysfunction of both sides (Acute) Tubal ligation status (Acute) H/O gastric sleeve (Acute) History of total knee replacement (Acute) Left shoulder pain (Acute) Sacroiliac joint pain (Acute) Myofascial muscle pain (Acute) Lumbar spondylosis (Acute) Lumbar facet arthropathy (Acute) Diabetes (Acute) Bilateral primary osteoarthritis of knee (Acute) Past Medical History Medical History (Updated 01/08/24 @ 16:12 by Brent Kumar MD) Vertigo Asthma Obstructive sleep apnea treated with continuous positive airway pressure (CPAP) 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 Obstructive sleep apnea syndrome Hip pain Mechanical low back pain Migraine Insomnia Hypercholesteremia 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 Diffuse myofascial pain syndrome Diabetes mellitus type 2, controlled Depression, major, single episode, moderate Anxiety Allergic rhinitis Cervical cancer COPD (chronic obstructive pulmonary disease) Family History Family History (Updated 11/30/23 @ 08:29 by Isabella Anderson CMA) Mother Breast cancer Colon cancer Surgical History Surgical History Tubal ligation status H/O gastric sleeve History of total knee replacement Hx of cholecystectomy Social History Social History (Updated 07/27/23 @ 10:10 by LANA Dawson) Patient Tobacco Use Status: Former Tobacco user Use of substances other than those prescribed or required for medical reasons: No Are you DNR?: No Advance Directives: No Advance Directives Information Provided: Yes Current occupational status: disabled Current occupation: right hand dominant Meds Allergies Allergy/AdvReac Type Severity Reaction Status Date / Time morphine Allergy Mild Shortness Verified 12/11/23 10:29 of Breath fentanyl Allergy Unknown Rash Verified 12/11/23 10:29 bee pollen Allergy bee sting- Verified 12/11/23 10:29 swelling Home Medications Medication Instructions Recorded Confirmed Last Taken Type albuterol sulfate 90 mcg/actuation 1 inh inhalation QID 04/07/23 12/11/23 Unknown History aerosol inhaler (Ventolin HFA) amlodipine 10 mg tablet 10 mg PO DAILY 04/07/23 12/11/23 Unknown History atorvastatin 40 mg tablet 40 mg PO DAILY 04/07/23 12/11/23 Unknown History bupropion HCl 300 mg 24 hr tablet, 300 mg PO QAM 04/07/23 12/11/23 Unknown History extended release buspirone 7.5 mg tablet 7.5 mg PO BID 04/07/23 12/11/23 Unknown History chlorthalidone 25 mg tablet 25 mg PO DAILY 04/07/23 12/11/23 Unknown History epinephrine 0.3 mg/0.3 mL 0.3 mg IM Q4H PRN 04/07/23 12/11/23 Unknown History injection, auto-injector fluticasone propionate 115 2 puff inhalation BID 04/07/23 12/11/23 Unknown History mcg-salmeterol 21 mcg/actuation HFA inhaler (Advair HFA) gabapentin 300 mg capsule 300 mg PO TID 04/07/23 12/11/23 Unknown History losartan 100 mg tablet 100 mg PO DAILY 04/07/23 12/11/23 Unknown History ondansetron 4 mg disintegrating 4 mg PO Q8H 04/07/23 12/11/23 Unknown History tablet oxycodone 15 mg tablet,crush 15 mg PO Q12H 04/07/23 12/11/23 Unknown History resistant,extended release 12 hr (OxyContin) pantoprazole 40 mg tablet,delayed 40 mg PO DAILY 04/07/23 12/11/23 Unknown History release (Protonix) polyethylene glycol 3350 17 17 g PO DAILY 04/07/23 12/11/23 Unknown History gram/dose oral powder (Miralax) quetiapine 25 mg tablet mg PO 07/27/23 12/11/23 Unknown History Assessment and Plan Assessment Anesthesia Assessment: Chart Reviewed Documented by User: Shea Bell MD 01/17/24 13:32 PMF Past Medical History Medical History (Updated 01/08/24 @ 16:12 by Brent Kumar MD) Vertigo Asthma Obstructive sleep apnea treated with continuous positive airway pressure (CPAP) 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 Obstructive sleep apnea syndrome Hip pain Mechanical low back pain Migraine Insomnia Hypercholesteremia 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 Diffuse myofascial pain syndrome Diabetes mellitus type 2, controlled Depression, major, single episode, moderate Anxiety Allergic rhinitis Cervical cancer COPD (chronic obstructive pulmonary disease) Family History Family History (Updated 11/30/23 @ 08:29 by Isabella Anderson CMA) Mother Breast cancer Colon cancer Family history of problems with anesthesia: No Surgical History Surgical History Tubal ligation status H/O gastric sleeve History of total knee replacement Hx of cholecystectomy History of Problems with Anesthesia: No Social History Social History (Updated 07/27/23 @ 10:10 by LANA Dawson) Patient Tobacco Use Status: Former Tobacco user Use of substances other than those prescribed or required for medical reasons: No Are you DNR?: No Advance Directives: No Advance Directives Information Provided: Yes Current occupational status: disabled Current occupation: right hand dominant Meds Allergies Allergy/AdvReac Type Severity Reaction Status Date / Time morphine Allergy Mild Shortness Verified 12/11/23 10:29 of Breath fentanyl Allergy Unknown Rash Verified 12/11/23 10:29 bee pollen Allergy bee sting- Verified 12/11/23 10:29 swelling Home Medications Medication Instructions Recorded Confirmed Last Taken Type albuterol sulfate 90 mcg/actuation 1 inh inhalation QID 04/07/23 12/11/23 Unknown History aerosol inhaler (Ventolin HFA) amlodipine 10 mg tablet 10 mg PO DAILY 04/07/23 12/11/23 Unknown History atorvastatin 40 mg tablet 40 mg PO DAILY 04/07/23 12/11/23 Unknown History bupropion HCl 300 mg 24 hr tablet, 300 mg PO QAM 04/07/23 12/11/23 Unknown History extended release buspirone 7.5 mg tablet 7.5 mg PO BID 04/07/23 12/11/23 Unknown History chlorthalidone 25 mg tablet 25 mg PO DAILY 04/07/23 12/11/23 Unknown History epinephrine 0.3 mg/0.3 mL 0.3 mg IM Q4H PRN 04/07/23 12/11/23 Unknown History injection, auto-injector fluticasone propionate 115 2 puff inhalation BID 04/07/23 12/11/23 Unknown History mcg-salmeterol 21 mcg/actuation HFA inhaler (Advair HFA) gabapentin 300 mg capsule 300 mg PO TID 04/07/23 12/11/23 Unknown History losartan 100 mg tablet 100 mg PO DAILY 04/07/23 12/11/23 Unknown History ondansetron 4 mg disintegrating 4 mg PO Q8H 04/07/23 12/11/23 Unknown History tablet oxycodone 15 mg tablet,crush 15 mg PO Q12H 04/07/23 12/11/23 Unknown History resistant,extended release 12 hr (OxyContin) pantoprazole 40 mg tablet,delayed 40 mg PO DAILY 04/07/23 12/11/23 Unknown History release (Protonix) polyethylene glycol 3350 17 17 g PO DAILY 04/07/23 12/11/23 Unknown History gram/dose oral powder (Miralax) quetiapine 25 mg tablet mg PO 07/27/23 12/11/23 Unknown History Exam Airway Mallampati Class: II TM Dist: >3cm Neck ROM: Full Denture: Upper Partial: Lower Assessment and Plan Assessment Anesthesia Assessment: Anesthesia Plan Discussed Final Anesthetic Review Family History of Problems with Anesthesia: No History of Problems with Anesthesia: No NPO: Yes ASA Class: III Final Preanesthetic Review: No Changes in Pt Med Stat, Meds/Allgs Chart Reviewed, Consent Obtained/Reviewed and Anes Risks/Benef Reviewed Patient Risk: Intermediate Procedure Risk: Low Anesthetic Plan Anesthetic Plan: TIVA Disposition: Standard PACU
[2024-01-17 13:25] VITALS: BMI 38.2
[2024-01-17 13:30] VITALS: BP 160/95; PULSE 96; RESP 20; TEMP 36.4; O2SAT 95
--- NOTE | 2024-01-17 13:43 | MHC.SHP ---
Pre-Procedural Eval Section A - 24 Hr Update-Section A only Date of Service: 01/17/24 The patient is an INPATIENT: No The patient has been examined within 24 hours of the surgical procedure. The History & Physical has been completed within 30 days and I have reviewed it.: Yes Section B - Complete if H&P > 30 days Chief Complaint: Morbid (severe) obesity due to excess calories Details of Present Illness: GERD Relevant Family History (Specify if Yes): No Relevant Social History: None Present Medications: None Medical History: No relevant PMH History of Previous Operations: Relevant previous surgery/procedure and date(s) (Laparoscopic sleeve gastrectomy) Allergies: Allergies Allergy/AdvReac Type Severity Reaction Status Date / Time morphine Allergy Mild Shortness Verified 12/11/23 10:29 of Breath fentanyl Allergy Unknown Rash Verified 12/11/23 10:29 bee pollen Allergy bee sting- Verified 12/11/23 10:29 swelling Review of Systems Sugical H&P ROS: Negative: Constitution, Cardiovascular, Respiratory, Neurological, Psychiatric, Hem-Onc, Allergic/Immunologic, Genitourinary, Musculoskeletal, Integumentary, Endocrine and Eyes/Ears/Nose/Throat and Yes, Specify: Gastrointestinal (GERD) Exam Surgical H&P Exam: Normal: HEENT, Normal: Heart, Normal: Lungs, Normal: Extremities, Normal: Abdomen, Normal: Skin and Normal: Neurological Plan Diagnosis/Plan: Unchanged (EGD to assess etiology of GERD in relation to her sleeve gastrectomy. Risks of bleeding and perforation were discussed with the patient and she is in agreement with the plan.) I have reviewed the history and physical and performed a pertinent physical examination on my patient. No changes have occurred unless specified. Time Spent With Patient Time: Total time managing care of this patient today ____ minutes.
--- NOTE | 2024-01-17 13:45 | PM.OP ---
Brief Operative Note Date of Service: 01/17/24 Pre-op diagnosis: GERD Post-op diagnosis: same Procedure: PROCEDURE DATE: 01/17/2024 PREOPERATIVE DIAGNOSIS: GERD, s/p sleeve gastrectomy POSTOPERATIVE DIAGNOSIS: ?Same as above. 1) significant proximal redundancy, 2) bile reflux, 3) esophagitis, 4) incomplete distal resection PROCEDURE: Bdomnrep-[id number] with biopsies Surgeon: ?Benny Kumar M.D.. Ph.D. Lacquer Shader: None ? Anesthesia: IV sedation Estimated blood loss: ?Minimal FINDINGS AND PROCEDURE: ? OPERATIVE INDICATIONS: ?The patient is a 53 year old female known to me who underwent a laparoscopic sleeve gastrectomy elsewhere. The patient had inadequate weight loss so far and has GERD.? Based on this information I recommended an upper endoscopy to evaluate the patient's symptoms. Risks and complications of the surgery were discussed with the patient in advance particularly the possibility of perforation or bleeding that may require surgical intervention. The patient understood the risks and was in agreement with the plan. ? PROCEDURE: After informed consent was obtained by the patient, the patient was ?transferred to the Operating Room and was placed in the supine position.? After successful induction of IV sedation, a mouth block was inserted and the patient was placed in the left lateral decubitus position. An upper endoscopy was performed next, the oropharynx and esophagus appeared within the normal limits. There was no hiatal hernia. The z-line was irregular with tongues of gastric mucosa protruding into the esophagus in 25% circumference. Two biopsies were obtained from the distal esophagus 2-3 cm proximal to the GE junction and two additional biopsies from the GE junction. The sleeve was entered. There was significant proximal redundancy near the GE junction. The remaining of he sleeve had an even caliber but it was somewhat enlarged in caliber. There was also bile reflux.There was a significant amount of stomach distally suggesting an incomplete distal sleeve resection. There was no stricture or ulcer. Biopsies were obtained from the proximal sleeve as well as the distal antrum. No significant bleeding was noted from any of the biopsy sites. The scope was then advanced into the duodenum which appeared to be normal as well. I was not able to get into the duodenum. At that point the sleeve were decompressed and the scope was withdrawn from the patient's mouth. The patient extubated and was transferred in stable condition to the Recovery Room for further care. I was present and performed all steps of the procedure. There were no residents to assist with this case. Benny Kumar M.D., Ph.D. Surgeon: Brent Kumar MD Anesthesia: MAC Was an Lacquer Shader used for this Procedure?: No Estimated blood loss (mL): 0 IV fluids (mL): 400 Urine output (mL): 0 (No Hewitt to record output) Pathology: other (1) antrum x1, 2) proximal sleeve/gastric fundus x1, 3) EGJ x2, 4) distal esophagus x2) Condition: stable Disposition: PACU
[2024-01-17] MEDS: Lactated Ringers 1,000 ML 80 ML IVCONT (13:56)
[2024-01-17 14:27] VITALS: BP 119/82; PULSE 82; RESP 16; TEMP 36.6; O2SAT 96
[2024-01-17 14:42] VITALS: BP 133/80; PULSE 80; RESP 14; O2SAT 96
[2024-01-17] MEDS: ondansetron HCL 4 MG/2 ML VIAL IVPUSH (14:46)
[2024-01-17 14:56] VITALS: BP 136/83; PULSE 75; RESP 16; TEMP 36.7; O2SAT 98
== END 2024-01-17 15:22 | disposition home or self-care (01) ==
PROVIDERS: PCP Internal Medicine; Visit Provider Surgery
PROC: 0DJ08ZZ Inspection of Upper Intestinal Tract, Via Natural or Artificial Opening Endoscopic (ICD-10-PCS; CPT 43235; principal; 2024-01-17 13:10)
DX: K21.9 Gastro-esophageal reflux disease without esophagitis (principal); Z98.84 Bariatric surgery status; K20.80 Other esophagitis without bleeding; E66.01 Morbid (severe) obesity due to excess calories; Z68.41 Body mass index [BMI] 40.0-44.9, adult; I10 Essential (primary) hypertension; E78.00 Pure hypercholesterolemia, unspecified; E11.9 Type 2 diabetes mellitus without complications; J44.9 Chronic obstructive pulmonary disease, unspecified; G47.33 Obstructive sleep apnea (adult) (pediatric); F32.1 Major depressive disorder, single episode, moderate; F41.9 Anxiety disorder, unspecified; Z99.89 Dependence on other enabling machines and devices; Z87.442 Personal history of urinary calculi; Z88.5 Allergy status to narcotic agent; Z90.49 Acquired absence of other specified parts of digestive tract; Z87.891 Personal history of nicotine dependence
CPT/HCPCS: 43239; 88305; 88313; 88342; J2250; J2405; J2704

== ENCOUNTER → 2024-01-17 10:29 | Outpatient (BNV) | payer OTHER, SELFPAY | PROVIDERS: PCP Internal Medicine; Visit Provider Surgery | DX: K21.00 Gastro-esophageal reflux disease with esophagitis, without bleeding (principal); Z90.3 Acquired absence of stomach [part of]; K95.89 Other complications of other bariatric procedure | CPT/HCPCS: 43239 ==

== ENCOUNTER 2024-01-30 08:06 | Outpatient (REF) | payer OTHER, SELFPAY ==
--- NOTE | ~2024-01-30 | FL_ITS ---
EXAMINATION: XR FLUOROSCOPY UPPER GI WITH AIR CLINICAL INFORMATION: History of sleeve gastrectomy. Preop evaluation prior sleeve revision. COMPARISON: None TECHNIQUE: Fluoroscopic air contrast upper GI examination was performed utilizing standard techniques with thin and thick barium and effervescent granules. Numerous spot images were obtained. FINDINGS: Images of the oropharynx and hypopharynx demonstrate normal swallow mechanism with normal epiglottic inversion and soft palate elevation. No tracheal penetration, glottic or subglottic aspiration identified. No nasopharyngeal reflux present. Hypopharyngeal structures appear normal without evidence of mass or diverticulum. Mild episodic cricopharyngeal achalasia is present. An esophageal web is present in the cervical esophagus just below the hypopharynx. Dual and single contrast images of the esophagus demonstrate normal caliber, contour, and mucosal pattern. No evidence of stricture, mass, or ulcerations identified. There is to and fro motion of barium column with nonpropulsive tertiary contractions noted in the mid and distal esophagus. A small type I hiatal hernia is present. No significant gastroesophageal reflux was seen during the course of the examination and on reflux views. Dual contrast and single contrast images of the stomach demonstrated a contour consistent with prior history of sleeve gastrectomy. No masses or ulcerations are seen. Contrast freely passed into the gastric antrum and duodenal bulb without delay. Single and air-contrast images of the duodenal bulb demonstrate no abnormality. The duodenal sweep has a normal appearance, course, and mucosal fold appearance. The imaged proximal jejunum has a normal fold pattern and caliber. Surgical clips are present in the right upper quadrant, consistent with prior history of cholecystectomy. FLUOROSCOPY TIME: 2 minutes 55 seconds Number of Spot Images: 15 Number of Cine: 6 DOSE AREA PRODUCT: 2548 uGy-m2 (microgray-meter squared) FL/FL upper GI w air IMPRESSION: 1. Mild episodic cricopharyngeal achalasia 2. 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 There is no obstruction. 3. To and fro motion of the barium column with nonpropulsive tertiary contractions noted in the mid and distal esophagus. These findings are consistent with esophageal dysmotility. 4. Small type I hiatal hernia 5. Postsurgical changes consistent with prior history of sleeve gastrectomy. 6. Status post cholecystectomy. This procedure was performed by Azael Ashford PA-C, and supervised by Dr. Soni
== END 2024-01-30 08:07 | disposition home or self-care (01) ==
LOC: HO.XRAY 08:06
PROVIDERS: PCP Internal Medicine; Visit Provider Surgery
DX: E66.9 Obesity, unspecified (principal); Z68.39 Body mass index [BMI] 39.0-39.9, adult; E11.9 Type 2 diabetes mellitus without complications
CPT/HCPCS: 74246

== ENCOUNTER → 2024-01-30 08:07 | Outpatient (BNV) | payer OTHER, SELFPAY | PROVIDERS: PCP Internal Medicine; Visit Provider Physician Assistant Surgical | DX: Z01.818 Encounter for other preprocedural examination (principal); E66.9 Obesity, unspecified; Z68.39 Body mass index [BMI] 39.0-39.9, adult | CPT/HCPCS: 74246 ==

== ENCOUNTER → 2024-01-31 07:49 | Outpatient (REF) | payer OTHER, SELFPAY ==
--- NOTE | 2024-01-31 07:52 | CA_ITS ---
Transthoracic Echocardiogram Patient (Last, First, Middle): Indy Dubois, Gender: Female Date of : 1970 Age: 53 Procedure Date: 01/31/2024 Procedure Type: Transthoracic Echocardiogram Location: OP Height: 167.64 cm Weight: 106.6 kg BSA: 2.14 m2 Heart Rate: 72 bpm BP: 128 / 68 mmHg Order Management Specialist: ADRIANA Raymundo MD: Brent Kumar MD Interior Design Faculty Member: Bautista Partida MD Symptoms: R94.31 - Abnormal electrocardiogram [ECG] [EKG] Study Quality: Fair ECG Rhythm: Sinus Conclusions: - 1. Normal LV ejection fraction of 60 65% with moderate asymmetric septal hypertrophy with impaired relaxation filling pattern 2. Cardiac valvular Doppler was within normal limits 3. Upper limits of normal ascending aortic size at 3.5 cm 4. No gross pericardial effusion Findings Left Ventricle Normal left ventricular size, thickness, and systolic function. The visually estimated ejection fraction is between 60-65%. Spectral Doppler is indicative of an impaired relaxation filling pattern. E/E prime ratio is between 8 and 15 consistent with indeterminate filling pressures. There is moderate septal asymmetric hypertrophy. Right Ventricle The right ventricle was not well visualized. There is normal right ventricular systolic function. Atria The left atrium is normal in size. Interatrial shunt cannot be excluded. The right atrium was not well visualized. Aortic Valve The aortic valve was not well visualized. There is no aortic valve stenosis. There is no aortic valve regurgitation. Mitral Valve Likely normal mitral valve structure and function. There is trace mitral valve regurgitation. There is no mitral valve stenosis. Pulmonic Valve The pulmonic valve was not well visualized. Tricuspid Valve Likely normal tricuspid valve structure and function. Tricuspid regurgitation envelope is inadequate for calculation of right ventricular systolic pressure. Normal right atrial pressure. Great Vessels All visible segments of the aorta are normal in size. The pulmonary artery was not well visualized. Venous The inferior vena cava is normal in size and collapses greater than 50% with inspiration. Pericardium/Pleural There is no evidence of pericardial effusion. Prior Study Comparison No prior study available for comparison. Measurements 2D Linear Measurements IVSd: 1.57 0.6-0.9/0.6-1.0 cm LVIDd: 3.81 3.9-5.3/4.2-5.9 cm LVIDd Index: 1.78 2.4-3.2/2.2-3.1 cm/m2 LVIDs: 2.51 2.0-3.6 cm LVPWd: 1.04 0.7-1.1 cm LA Diam: 3.50 2.7-3.8/3.0-4.0 cm LAIDs Index: 1.64 1.5-2.3 cm/m2 LV Mass: 217.68 67-162/88-224 g LV Mass Index: 101.72 43-95/49-115 g/m2 LVOT Diam: 2.30 3.0+(-)1.3 cm 2D Systolic Function EF 4C: 67.90 >55% EF 2C: 59.60 >55% EF BiP: 63.90 >55% Mitral Valve MV Pk E: 0.69 MV PK A: 0.67 MV Decel Time: 227.00 E/A: 1.00 E'Lateral: 7.40 E'Medial: 6.31 E/E' Med: 10.90 E/E' Lat: 9.30 PHT: 66.00 MVA PHT: 3.33 Decel [place]: 3.02 Aortic Valve AoV Pk Rex: 1.47 AoV Pk Grad: 9.00 GENOVEVA: 3.80 LVOT LVOT Pk Rex: 1.35 LVOT Mn Rex: 0.92 LVOT VTI: 0.25 LVOT Pk Grad: 7.00 LVOT Mn Grad: 4.00 LVOT Diam: 2.30 LVOT Area: 4.15 Diastolic Function MV Pk E: 0.69 MV Pk A: 0.67 E/A: 1.00 E'Medial: 6.31 E/E' Med: 10.90 E' Laterial: 7.40 E/E' Lat: 9.30 Right Ventricle TAPSE (mm): 22.10 TVS' Rex: 16.20 Tricuspid Valve RA Press: 3.00 Great Vessels Aorta Sinus of Valsalva: 3.20 2.0-3.5 cm Ao Asc: 3.50 2.1-3.4 cm Pulmonary Valve PV Pk Rex: 1.16 Peak PV Grad: 5.00 Updated in Other Vendor System with Status of Final Bautista Partida MD electronically signed on 02/01/2024 12:18:45 PM with status of Final
--- NOTE | 2024-01-31 07:52 | CA_ITS ---
Acquisition Time: 2024-01-31 08:47:04 Total Exercise Time: 00:04:00 Test Indications: Abnormal ECG Medications: SEE EMAR Protocol: PRADEEP Max HR: 126 BPM 75% of Pred: 166 BPM Max BP: 150/078 mmHG Max Work Load: 5.8 METS Exercise stress test exercise 4 min of Pradeep protocol achieving 75% MPHR and 5.8 METS, patient went to side rails of treadmill due to mild to moderate SOB and lightheadedness, without arrhythmias, with normotensive response to exercise, with nondiagnoisitic EKGs. Test reviewed with Dr. Partida Referred By: Brent Kumar Overread By: Jenn Soni
== END ==
LOC: HO.CARD 07:49
PROVIDERS: PCP Internal Medicine; Visit Provider Surgery
DX: R94.31 Abnormal electrocardiogram [ECG] [EKG] (principal)
CPT/HCPCS: 93017; 93306

== ENCOUNTER → 2024-01-31 07:52 | Outpatient (BNV) | payer OTHER, SELFPAY | PROVIDERS: PCP Internal Medicine; Visit Provider Nurse Practitioner | DX: R94.31 Abnormal electrocardiogram [ECG] [EKG] (principal); R06.02 Shortness of breath | CPT/HCPCS: 93016; 93018; 93320; 93350 ==

== ENCOUNTER 2024-02-09 08:13 | Outpatient (AMB) | payer OTHER, SELFPAY ==
--- NOTE | 2024-02-09 10:10 | MHC.OFFVISWM ---
Intake VS Expanded 02/09/24 10:26 Height 5 ft 7 in Weight 235 lb 8 oz BMI 36.9 Body Fat % 41.2 Body Fat Mass 97.1 Fat Free Mass 138.6 Visceral Fat Rating 13 Body Water % 39 Body Water Mass 91.9 Basal Metabolic Rate/Score 1,554 Intake Visit Reasons: TV Follow Up SWL Allergies morphine Allergy (Mild, Verified 12/11/23 10:29) Shortness of Breath fentanyl Allergy (Unknown, Verified 12/11/23 10:29) Rash bee pollen Allergy (Verified 12/11/23 10:29) bee sting- swelling HPI TV Follow Up SWL HPI Details Start time: 10.03am, End time: 10.33am ?I spent 25 minutes speaking with the patient on the phone plus an additional 5 minutes reviewing and updating records for a total of 30 minutes HPI Comments History of Present Illness Details Overall weight loss: 9.6lbs, or 3.91% TBWL Is doing 2 Celebrate Rebuild protein shakes (2 scoops in almond milk), one Celebrate protein bar and one meal ( Exercise: is doing the bike [facility] Medical History (Updated 02/07/24 @ 19:13 by Brent Kumar MD) Vertigo Asthma Obstructive sleep apnea treated with continuous positive airway pressure (CPAP) 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 Obstructive sleep apnea syndrome Hip pain Mechanical low back pain Migraine Insomnia Hypercholesteremia 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 Diffuse myofascial pain syndrome Diabetes mellitus type 2, controlled Depression, major, single episode, moderate Anxiety Allergic rhinitis Cervical cancer COPD (chronic obstructive pulmonary disease) Surgical History Tubal ligation status H/O gastric sleeve History of total knee replacement Hx of cholecystectomy Family History (Updated 11/30/23 @ 08:29 by Isabella Anderson CMA) Mother Breast cancer Colon cancer Social History (Updated 07/27/23 @ 10:10 by LANA Dawson) Patient Tobacco Use Status: Former Tobacco user Current occupational status: disabled Current occupation: right hand dominant Assessment & Plan Assessment & Plan (1) Obesity: Code(s): E66.9 - Obesity, unspecified Qualifiers: Obesity type: due to excess calories Obesity classification: adult class 2 (BMI 35 - 39.9) Serious obesity comorbidity presence: with serious comorbidity Body mass index: BMI 39.0-39.9 Qualified Code(s): E66.01 - Morbid (severe) obesity due to excess calories; Z68.39 - Body mass index [BMI] 39.0-39.9, adult Plan: 1. Change nutritional plan to 2 CELEBRATE REBUILD protein shakes (ONE scoop EACH in 8oz low fat unsweetened almond milk each) at 9am-11am and 12pm-2pm, 1 Celebrate protein bar at 3pm-5pm, dinner at 6pm (6 forks of protein and 6 forks of salad/vegetables) AND one protein bar after dinner at 6.30pm-8pm. 2. Start stationary bike with a resistance of zero. Burn only 100 calories at each work-out session. 3 times per day for a total of 300 calories per day. Try to do this daily for a total of 2000 calories per week on the bike. Please let me know if that does not work for you. 3. Continue to send me weight measurements weekly on Wednesdays Telehealth Telehealth Location of provider rendering services: practice address Location of patient: address on file Patient Identification confirmed using: Name, : Yes Telehealth method: voice only Patient verbally consented to treatment: Yes Patient verbally consented to billing insurance company: Yes Patient informed of any privacy concerns related to visit: Yes Minutes spent on Phone/Video with Pt.: 30 Coding Level of Care Code Tele Est Pt Level 4 (71414) Diagnoses Class 2 severe obesity due to excess calories with serious comorbidity and body mass index (BMI) of 39.0 to 39.9 in adult E66.01; Z68.39 Obesity type: due to excess calories Obesity classification: adult class 2 (BMI 35 - 39.9) Serious obesity comorbidity presence: with serious comorbidity Body mass index: BMI 39.0-39.9 Time Spent (min) 30
[2024-02-09 10:26] VITALS: BMI 36.9
== END 2024-02-09 10:34 | disposition home or self-care (01) ==
LOC: HO.HBS 08:14
PROVIDERS: PCP Internal Medicine; Visit Provider Surgery
DX: E66.01 Morbid (severe) obesity due to excess calories (principal); Z68.36 Body mass index [BMI] 36.0-36.9, adult
CPT/HCPCS: 99443

== ENCOUNTER → 2024-02-09 08:13 | Outpatient (BNVA) | payer OTHER, SELFPAY | PROVIDERS: PCP Internal Medicine; Visit Provider Surgery | DX: E55.9 Vitamin D deficiency, unspecified (principal); R94.31 Abnormal electrocardiogram [ECG] [EKG]; E66.01 Morbid (severe) obesity due to excess calories ==

== ENCOUNTER 2024-02-28 08:24 | Outpatient (AMB) | payer OTHER, SELFPAY ==
[2024-02-28 08:33] VITALS: BP 157/84; PULSE 73; RESP 18; O2SAT 94; BMI 37.3
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
== END 2024-02-28 08:53 | disposition home or self-care (01) ==
PROVIDERS: PCP Internal Medicine; Visit Provider Registered Nurse Emergency
DX: M53.3 Sacrococcygeal disorders, not elsewhere classified (principal); M47.816 Spondylosis without myelopathy or radiculopathy, lumbar region; M79.18 Myalgia, other site
CPT/HCPCS: 99213

== ENCOUNTER → 2024-02-28 08:24 | Outpatient (BNVA) | payer OTHER, SELFPAY | PROVIDERS: PCP Internal Medicine; Visit Provider Registered Nurse Emergency | DX: M53.3 Sacrococcygeal disorders, not elsewhere classified (principal); M47.816 Spondylosis without myelopathy or radiculopathy, lumbar region; M79.18 Myalgia, other site | CPT/HCPCS: 99212 ==

== ENCOUNTER 2024-04-15 08:47 | Outpatient (REF) | payer OTHER, SELFPAY ==
--- NOTE | ~2024-04-15 | CT_ITS ---
EXAMINATION: CT PELVIS WITHOUT CONTRAST CLINICAL INFORMATION: Sacrococcygeal disorders. COMPARISON: Hip and pelvic radiographs dated 01/03/2024. TECHNIQUE: Helical scanning was performed with submillimeter collimation through the pelvis. Sagittal and coronal multiplanar 2-D reconstructions were obtained. This CT examination was performed using dose optimization techniques as appropriate, variously including the following: *Automated exposure control *Adjustment of mA and/or kV according to patient size (this includes techniques or standardized protocols for targeted exams where dose is matched to indication/reason for exam; i.e. extremities or head) *Use of iterative reconstruction technique DLP: 639 mGy-cm FINDINGS: PELVIS: No soft tissue mass or fluid collection. The visualized intrapelvic structures are unremarkable. Atherosclerotic calcifications. No significant pelvic wall hernia. OSSEOUS STRUCTURES: Mild bilateral sacroiliac joint space narrowing with small marginal osteophytes, right greater than left. Subchondral sclerosis within the right iliac side of the sacral iliac joint. No large periarticular erosion or evidence of acute sacroiliitis. No acute fracture or dislocation. Prominent facet arthropathy and degenerative disc disease is partially visualized within the lower lumbar spine. No concerning lytic or blastic osseous lesion. No femoral head avascular necrosis. Mild right hip osteoarthritis. CT/CT bony pelvis IMPRESSION: 1. Mild bilateral sacral iliac osteoarthritis, right greater than left. 2. Mild right hip osteoarthritis. 3. Partially visualized prominent facet arthropathy and degenerative disc disease within the lower lumbar spine.
== END 2024-04-15 08:48 | disposition home or self-care (01) ==
LOC: HO.CT 08:47
PROVIDERS: PCP Internal Medicine; Visit Provider Registered Nurse Emergency
DX: M53.3 Sacrococcygeal disorders, not elsewhere classified (principal)
CPT/HCPCS: 72192

== ENCOUNTER 2024-07-09 10:58 | Outpatient (AMB) | payer OTHER, SELFPAY ==
[2024-07-09 11:08] VITALS: BP 168/82; PULSE 87; O2SAT 96; BMI 36.8
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
== END 2024-07-09 11:37 | disposition home or self-care (01) ==
PROVIDERS: PCP Internal Medicine; Visit Provider Registered Nurse Emergency
DX: M53.3 Sacrococcygeal disorders, not elsewhere classified (principal); M47.816 Spondylosis without myelopathy or radiculopathy, lumbar region; M79.18 Myalgia, other site
CPT/HCPCS: 99213; G2211

== ENCOUNTER → 2024-07-09 10:58 | Outpatient (BNVA) | payer OTHER, SELFPAY | PROVIDERS: PCP Internal Medicine; Visit Provider Registered Nurse Emergency | DX: M53.3 Sacrococcygeal disorders, not elsewhere classified (principal); M79.18 Myalgia, other site; M47.816 Spondylosis without myelopathy or radiculopathy, lumbar region; Z79.891 Long term (current) use of opiate analgesic | CPT/HCPCS: 99212 ==

== ENCOUNTER 2024-09-06 07:00 | Day surgery (SDC) | payer OTHER, SELFPAY ==
--- NOTE | 2024-09-05 12:49 | HO.ANESPROP2 ---
Documented by User: Nancy Haney NP 09/05/24 12:51 HPI - Anesthesia Eval Consult details Narrative: 53yo F for Left Sacroiliac Joint Stabilization and Fusion Chronic opiate DM no rx PMFSH Active Problems Active Problems: All Active Problems Abnormal stress test (Acute) Vitamin A deficiency (Acute) Depression, major, recurrent, moderate (Acute) Morbid obesity (Acute) Abnormal EKG (Acute) Vitamin D deficiency (Acute) Vertigo (Acute) Asthma (Acute) Obstructive sleep apnea treated with continuous positive airway pressure (CPAP) (Acute) Depression, major, single episode, moderate (Acute) Anxiety (Acute) Hypercholesteremia (Acute) 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 (Acute) BMI 39.0-39.9,adult (Acute) Obesity (Acute) Tendonitis of left rotator cuff (Acute) Sacroiliac joint dysfunction of both sides (Acute) Tubal ligation status (Acute) H/O gastric sleeve (Acute) History of total knee replacement (Acute) Left shoulder pain (Acute) Sacroiliac joint pain (Acute) Myofascial muscle pain (Acute) Lumbar spondylosis (Acute) Lumbar facet arthropathy (Acute) Diabetes (Acute) Bilateral primary osteoarthritis of knee (Acute) Past Medical History Medical History (Updated 02/07/24 @ 19:13 by Brent Kumar MD) Vertigo Asthma Obstructive sleep apnea treated with continuous positive airway pressure (CPAP) 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 Obstructive sleep apnea syndrome Hip pain Mechanical low back pain Migraine Insomnia Hypercholesteremia 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 Diffuse myofascial pain syndrome Diabetes mellitus type 2, controlled Depression, major, single episode, moderate Anxiety Allergic rhinitis Cervical cancer COPD (chronic obstructive pulmonary disease) Family History Family History (Updated 11/30/23 @ 08:29 by Isabella Anderson CMA) Mother Breast cancer Colon cancer Family history of problems with anesthesia: No Surgical History Surgical History Tubal ligation status H/O gastric sleeve History of total knee replacement Hx of cholecystectomy History of Problems with Anesthesia: No Social History Social History (Updated 07/27/23 @ 10:10 by LANA Dawson) Patient Tobacco Use Status: Former Tobacco user Have you been hit, kicked, punched, or otherwise hurt by someone within the past year? If so, by whom?: No Are you DNR?: No Advance Directives: No Advance Directives Information Provided: Yes Recently lost weight without trying: No Nutrition Risks: No Nutritional Risk Current occupational status: disabled Current occupation: right hand dominant Meds Allergies Allergy/AdvReac Type Severity Reaction Status Date / Time morphine Allergy Mild Shortness Verified 07/09/24 11:09 of Breath fentanyl Allergy Unknown Rash Verified 07/09/24 11:09 bee pollen Allergy bee sting- Verified 07/09/24 11:09 swelling Home Medications ?Medication ?Instructions ?Recorded ?Confirmed ?Last Taken ?Type albuterol sulfate 90 mcg/actuation 1 inh inhalation QID 04/07/23 07/09/24 09/06/24 History aerosol inhaler (Ventolin HFA) amlodipine 10 mg tablet 10 mg PO DAILY 04/07/23 07/09/24 09/06/24 History atorvastatin 40 mg tablet 40 mg PO DAILY 04/07/23 07/09/24 Unknown History bupropion HCl 300 mg 24 hr tablet, 300 mg PO QAM 04/07/23 07/09/24 Unknown History extended release buspirone 7.5 mg tablet 7.5 mg PO BID 04/07/23 07/09/24 Unknown History chlorthalidone 25 mg tablet 25 mg PO DAILY 04/07/23 07/09/24 Unknown History epinephrine 0.3 mg/0.3 mL 0.3 mg IM Q4H PRN 04/07/23 07/09/24 Unknown History injection, auto-injector fluticasone propionate 115 2 puff inhalation BID 04/07/23 07/09/24 Unknown History mcg-salmeterol 21 mcg/actuation HFA inhaler (Advair HFA) gabapentin 300 mg capsule 300 mg PO TID 04/07/23 07/09/24 Unknown History losartan 100 mg tablet 100 mg PO DAILY 04/07/23 07/09/24 Unknown History ondansetron 4 mg disintegrating 4 mg PO Q8H 04/07/23 07/09/24 Unknown History tablet oxycodone 15 mg tablet,crush 15 mg PO Q12H 04/07/23 07/09/24 Unknown History resistant,extended release 12 hr (OxyContin) pantoprazole 40 mg tablet,delayed 40 mg PO DAILY 04/07/23 07/09/24 Unknown History release (Protonix) polyethylene glycol 3350 17 17 g PO DAILY 04/07/23 07/09/24 Unknown History gram/dose oral powder (Miralax) quetiapine 25 mg tablet mg PO 07/27/23 07/09/24 Unknown History acetaminophen 650 mg mg PO 02/28/24 07/09/24 Unknown History tablet,extended release fluoxetine 10 mg capsule 10 mg PO DAILY 02/28/24 07/09/24 Unknown History melatonin 5 mg disintegrating mg PO 02/28/24 07/09/24 Unknown History tablet oxycodone 15 mg tablet,crush 15 mg PO BID 09/05/24 09/05/24 Unknown History resistant,extended release 12 hr (OxyContin) Assessment and Plan Assessment Anesthesia Assessment: Chart Reviewed Final Anesthetic Review Family History of Problems with Anesthesia: No History of Problems with Anesthesia: No Documented by User: Rosemarie Singh MD 09/06/24 08:43 [facility] Past Medical History Medical History (Updated 02/07/24 @ 19:13 by Brent Kumar MD) Vertigo Asthma Obstructive sleep apnea treated with continuous positive airway pressure (CPAP) 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 Obstructive sleep apnea syndrome Hip pain Mechanical low back pain Migraine Insomnia Hypercholesteremia 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 Diffuse myofascial pain syndrome Diabetes mellitus type 2, controlled Depression, major, single episode, moderate Anxiety Allergic rhinitis Cervical cancer COPD (chronic obstructive pulmonary disease) Family History Family History (Updated 11/30/23 @ 08:29 by Isabella Anderson CMA) Mother Breast cancer Colon cancer Surgical History Surgical History Tubal ligation status H/O gastric sleeve History of total knee replacement Hx of cholecystectomy Social History Social History (Updated 07/27/23 @ 10:10 by LANA Dawson) Patient Tobacco Use Status: Former Tobacco user Have you been hit, kicked, punched, or otherwise hurt by someone within the past year? If so, by whom?: No Are you DNR?: No Advance Directives: No Advance Directives Information Provided: Yes Recently lost weight without trying: No Nutrition Risks: No Nutritional Risk Current occupational status: disabled Current occupation: right hand dominant Meds Allergies Allergy/AdvReac Type Severity Reaction Status Date / Time morphine Allergy Mild Shortness Verified 07/09/24 11:09 of Breath fentanyl Allergy Unknown Rash Verified 07/09/24 11:09 bee pollen Allergy bee sting- Verified 07/09/24 11:09 swelling Home Medications ?Medication ?Instructions ?Recorded ?Confirmed ?Last Taken ?Type albuterol sulfate 90 mcg/actuation 1 inh inhalation QID 04/07/23 07/09/24 09/06/24 History aerosol inhaler (Ventolin HFA) amlodipine 10 mg tablet 10 mg PO DAILY 04/07/23 07/09/24 09/06/24 History atorvastatin 40 mg tablet 40 mg PO DAILY 04/07/23 07/09/24 Unknown History bupropion HCl 300 mg 24 hr tablet, 300 mg PO QAM 04/07/23 07/09/24 Unknown History extended release buspirone 7.5 mg tablet 7.5 mg PO BID 04/07/23 07/09/24 Unknown History chlorthalidone 25 mg tablet 25 mg PO DAILY 04/07/23 07/09/24 Unknown History epinephrine 0.3 mg/0.3 mL 0.3 mg IM Q4H PRN 04/07/23 07/09/24 Unknown History injection, auto-injector fluticasone propionate 115 2 puff inhalation BID 04/07/23 07/09/24 Unknown History mcg-salmeterol 21 mcg/actuation HFA inhaler (Advair HFA) gabapentin 300 mg capsule 300 mg PO TID 04/07/23 07/09/24 Unknown History losartan 100 mg tablet 100 mg PO DAILY 04/07/23 07/09/24 Unknown History ondansetron 4 mg disintegrating 4 mg PO Q8H 04/07/23 07/09/24 Unknown History tablet oxycodone 15 mg tablet,crush 15 mg PO Q12H 04/07/23 07/09/24 Unknown History resistant,extended release 12 hr (OxyContin) pantoprazole 40 mg tablet,delayed 40 mg PO DAILY 04/07/23 07/09/24 Unknown History release (Protonix) polyethylene glycol 3350 17 17 g PO DAILY 04/07/23 07/09/24 Unknown History gram/dose oral powder (Miralax) quetiapine 25 mg tablet mg PO 07/27/23 07/09/24 Unknown History acetaminophen 650 mg mg PO 02/28/24 07/09/24 Unknown History tablet,extended release fluoxetine 10 mg capsule 10 mg PO DAILY 02/28/24 07/09/24 Unknown History melatonin 5 mg disintegrating mg PO 02/28/24 07/09/24 Unknown History tablet oxycodone 15 mg tablet,crush 15 mg PO BID 09/05/24 09/05/24 Unknown History resistant,extended release 12 hr (OxyContin) Exam Airway Mallampati Class: II TM Dist: >3cm Neck ROM: Full Denture: Upper Partial: Lower Heart: rrr Lungs: cta Assessment and Plan Assessment Anesthesia Assessment: Anesthesia Plan Discussed Final Anesthetic Review NPO: Yes ASA Class: III Final Preanesthetic Review: No Changes in Pt Med Stat, Meds/Allgs Chart Reviewed and Consent Obtained/Reviewed Patient Risk: Low Procedure Risk: Low Anesthetic Plan Anesthetic Plan: MAC: Disposition: Standard PACU
[2024-09-06] VITALS (10 sets, daily range): BP systolic 125–164; BP diastolic 52–73; PULSE 73–82; RESP 16–18; TEMP 36.3–36.7; O2SAT 96–100; BMI 36.8; BMI 37.0
[2024-09-06] MEDS: Lactated Ringers 1,000 ML 100 ML IVCONT (07:39)
--- NOTE | 2024-09-06 08:43 | P.HPSUR_ITS ---
Pre-Procedural Eval Section A - 24 Hr Update-Section A only Date of Service: 09/06/24 The patient is an INPATIENT: No Changes since office visit: Yes Patient answered all questions The patient has been examined within 24 hours of the surgical procedure. The History & Physical has been completed within 30 days and I have reviewed it.: No Section B - Complete if H&P > 30 days Chief Complaint: Sacrococcygeal disorders, not elsewhere classified Details of Present Illness: As above Relevant Family History (Specify if Yes): No Relevant Social History: None Present Medications: None Medical History: No relevant PMH History of Previous Operations: No relevant previous surgery Allergies: Allergies Allergy/AdvReac Type Severity Reaction Status Date / Time morphine Allergy Mild Shortness Verified 07/09/24 11:09 of Breath fentanyl Allergy Unknown Rash Verified 07/09/24 11:09 bee pollen Allergy bee sting- Verified 07/09/24 11:09 swelling Review of Systems Sugical H&P ROS: Negative: Cardiovascular, Respiratory, Neurological, Psychiatric, Hem-Onc, Allergic/Immunologic, Gastrointestinal, Genitourinary, Musculoskeletal, Integumentary, Endocrine and Eyes/Ears/Nose/Throat and Yes, Specify: Constitution (Morbid obesity) Exam Surgical H&P Exam: Normal: HEENT, Normal: Heart, Normal: Lungs, Normal: Ex tremities, Normal: Skin and Normal: Neurological and Significant Findings: Abdomen (Enlarged due to fat) Plan I have reviewed the history and physical and performed a pertinent physical examination on my patient. No changes have occurred unless specified. Time Spent With Patient Time: Total time managing care of this patient today ____ minutes.
[2024-09-06] MEDS: fentaNYL citrate/PF 100 MCG/2 ML VIAL 50 MCG IVPUSH ×2 (11:04→11:36)
--- NOTE | 2024-09-06 11:07 | PM.OP ---
Brief Operative Note Date of Service: 09/06/24 Pre-op diagnosis: Sacroiliac joint dysfunction left side Post-op diagnosis: same Procedure: Sacroiliac joint stabilization with fusion for the left sacroiliac joint pain tech Implants: Lyophilized donor bone with biologicals promoting bone growth. Surgeon: Jeremy Garcia MD Anesthesia: MAC Was an Spring Production Supervisor used for this Procedure?: No Estimated blood loss (mL): 18 Pathology: none sent Condition: stable Disposition: PACU
[2024-09-06] MEDS: Acetaminophen 1,000 MG/100 ML PIGGYBACK 400 MG IV (11:08)
--- NOTE | 2024-09-06 11:15 | P.OP_ITS ---
Operative Note Operative Note Date of Service: 09/06/24 Narrative: Left sacroiliac joint stabilisation procedure. posterior sacroiliac joint fusion using LINQ SI joint stabilization system with C-arm fluoroscopy for guidance.? Indy is very pleasant 53 years old female who presented today for the treatment of the sacroiliac joint instability and sacroiliac joint pain as well as sacroiliitis in the operating room with sacroiliac joint stabilization with fusion on the left side. Informed consent was obtained. The risks and benefits including bleeding, infection, peripheral nerve damage, failure to reduce the pain were explained to the patient.?The patient came to the operating room, she was positioned on the operating table prone, [place] [employer] monitors were applied and the patient was moderately to deeply sedated. Time-out was performed delineating correct site, side, and nature of the procedure, name and date of of the patient, risk of fire, need for DVT prophylaxis, need for antibiotics.? All pressure points were protected again. Lower back and bilateral buttocks were prepped with ChloraPrep and draped with full body drape including ioban film. Sterilely draped C-arm was brought over the operating field and sq picture of the left sacroiliac joint was demonstrated on the screen. Contralateral oblique view demonstrated proper position of sacroiliac joint anterior portion superimposing sacroiliac joint posterior portion. In the projection of the left S1 foramina 2 cm midline incision was performed. Soft tissue dissection was done to sacroiliac joint and thorough blind dissection was made in the direction of the?sacroiliac joint. Blunt? K-wire pin was inserted into the left sacroiliac joint and guiding instrument was inserted into the joint using the pin as a guide and advanced into the joint on the intermittent anterior posterior, oblique and lateral views.??? After that the sacroiliac joint introduction cannula was inserted over the pain and advanced into the sacroiliac joint with hammering. The image was saved on proper position of sacroiliac joint introduction cannula positioned in the left sacroiliac joint. The pin was removed and rasping device was inserted to broach and rasp sacroiliac joint's bilateral lips.? Once joint was prepared the structural allograft implant was hammered into the joint . It was packed with ortho biologics in and around the implant to provide better opportunity? for bones fusion.? The position of the allograft was confirmed radiographically.? After allograft positions were documented on the lateral view the wound was irrigated, thorough hemostasis was achieved, wound was closed in 2 layers.? Surgery was concluded by performing standard suture closing technique:? 0 Polysorb suture was used to close the wound and ruth were used to apptoximate the level of the skin.? Ruth were applied to the edges of the wound bacitracin dressing was applied patient Tegaderm film. After that patient was awakened, transferred stable to PACU.
== END 2024-09-06 12:50 | disposition home or self-care (01) ==
PROVIDERS: PCP Internal Medicine; Visit Provider Anesthesiology
PROC: (CPT 27278; principal; 2024-09-06 09:00)
DX: M53.3 Sacrococcygeal disorders, not elsewhere classified (principal); M53.2X8 Spinal instabilities, sacral and sacrococcygeal region; M46.1 Sacroiliitis, not elsewhere classified; M47.816 Spondylosis without myelopathy or radiculopathy, lumbar region; M79.18 Myalgia, other site; J44.9 Chronic obstructive pulmonary disease, unspecified; E11.9 Type 2 diabetes mellitus without complications; I10 Essential (primary) hypertension; E78.00 Pure hypercholesterolemia, unspecified; F32.A Depression, unspecified; F41.9 Anxiety disorder, unspecified; Z79.891 Long term (current) use of opiate analgesic; Z79.51 Long term (current) use of inhaled steroids; Z79.899 Other long term (current) drug therapy; Z88.5 Allergy status to narcotic agent; Z88.8 Allergy status to other drugs, medicaments and biological substances; Z96.651 Presence of right artificial knee joint; Z98.890 Other specified postprocedural states; Z87.891 Personal history of nicotine dependence
CPT/HCPCS: 27278; C1713; J0131; J0690; J1596; J2003; J2250; J2405; J2704; J2795; J3010; J3370

== ENCOUNTER → 2024-09-06 07:00 | Outpatient (BNV) | payer OTHER, SELFPAY | PROVIDERS: PCP Internal Medicine; Visit Provider Anesthesiology | DX: M53.3 Sacrococcygeal disorders, not elsewhere classified (principal) | CPT/HCPCS: 27279 ==

== ENCOUNTER 2024-09-13 13:41 | Outpatient (AMB) | payer OTHER, SELFPAY ==
[2024-09-13 13:50] VITALS: BP 155/86; PULSE 90; O2SAT 96
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
== END 2024-09-13 14:09 | disposition home or self-care (01) ==
PROVIDERS: PCP Internal Medicine; Visit Provider Registered Nurse Emergency
DX: M53.3 Sacrococcygeal disorders, not elsewhere classified (principal); M47.816 Spondylosis without myelopathy or radiculopathy, lumbar region; M79.18 Myalgia, other site
CPT/HCPCS: 99213; G2211

== ENCOUNTER → 2024-09-13 13:41 | Outpatient (BNVA) | payer OTHER, SELFPAY | PROVIDERS: PCP Internal Medicine; Visit Provider Registered Nurse Emergency | DX: M53.3 Sacrococcygeal disorders, not elsewhere classified (principal); M47.816 Spondylosis without myelopathy or radiculopathy, lumbar region; M79.18 Myalgia, other site | CPT/HCPCS: 99212 ==

== ENCOUNTER 2024-09-20 13:40 | Outpatient (AMB) | payer OTHER, SELFPAY ==
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
[2024-09-20 14:01] VITALS: BP 190/91; PULSE 86; RESP 15; O2SAT 95; BMI 37.7
== END 2024-09-20 14:23 | disposition home or self-care (01) ==
PROVIDERS: PCP Internal Medicine; Visit Provider Registered Nurse Emergency
DX: M53.3 Sacrococcygeal disorders, not elsewhere classified (principal); M47.816 Spondylosis without myelopathy or radiculopathy, lumbar region; M79.18 Myalgia, other site
CPT/HCPCS: 99024

== ENCOUNTER → 2024-09-20 13:40 | Outpatient (BNVA) | payer OTHER, SELFPAY | PROVIDERS: PCP Internal Medicine; Visit Provider Registered Nurse Emergency | DX: M53.3 Sacrococcygeal disorders, not elsewhere classified (principal); M47.816 Spondylosis without myelopathy or radiculopathy, lumbar region; M79.18 Myalgia, other site | CPT/HCPCS: 99212 ==

== ENCOUNTER 2024-12-06 05:53 | Day surgery (SDC) | payer OTHER, SELFPAY ==
[2024-12-04 10:46] VITALS: BMI 37.7
--- NOTE | 2024-12-05 12:00 | HO.ANESPROP2 ---
Documented by User: Nancy Haney NP 12/05/24 12:01 HPI - Anesthesia Eval Consult details Narrative: 54yo F for Right Sacroiliac Joint Stabiliation Fusion s/p left side 08/2024 with TIVA Chronic opiate DM no rx PMFSH Active Problems Active Problems: All Active Problems Abnormal stress test (Acute) Vitamin A deficiency (Acute) Depression, major, recurrent, moderate (Acute) Morbid obesity (Acute) Abnormal EKG (Acute) Vitamin D deficiency (Acute) Vertigo (Acute) Asthma (Acute) Obstructive sleep apnea treated with continuous positive airway pressure (CPAP) (Acute) Depression, major, single episode, moderate (Acute) Anxiety (Acute) Hypercholesteremia (Acute) 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 (Acute) BMI 39.0-39.9,adult (Acute) Obesity (Acute) Tendonitis of left rotator cuff (Acute) Sacroiliac joint dysfunction of both sides (Acute) Tubal ligation status (Acute) H/O gastric sleeve (Acute) History of total knee replacement (Acute) Left shoulder pain (Acute) Sacroiliac joint pain (Acute) Myofascial muscle pain (Acute) Lumbar spondylosis (Acute) Lumbar facet arthropathy (Acute) Diabetes (Acute) Bilateral primary osteoarthritis of knee (Acute) Past Medical History Medical History (Updated 02/07/24 @ 19:13 by Brent Kumar MD) Vertigo Asthma Obstructive sleep apnea treated with continuous positive airway pressure (CPAP) 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 Obstructive sleep apnea syndrome Hip pain Mechanical low back pain Migraine Insomnia Hypercholesteremia 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 Diffuse myofascial pain syndrome Diabetes mellitus type 2, controlled Depression, major, single episode, moderate Anxiety Allergic rhinitis Cervical cancer COPD (chronic obstructive pulmonary disease) Family History Family History (Updated 11/30/23 @ 08:29 by Isabella Anderson CMA) Mother Breast cancer Colon cancer Family history of problems with anesthesia: No Surgical History Surgical History (Updated 12/06/24 @ 06:22 by Mariangel Luciano RN) History of surgery Tubal ligation status H/O gastric sleeve History of total knee replacement Hx of cholecystectomy History of Problems with Anesthesia: No Social History Social History (Updated 07/27/23 @ 10:10 by LANA Dawson) Patient Tobacco Use Status: Former Tobacco user Use of substances other than those prescribed or required for medical reasons: Yes Substance Use Type Other:: gummies for sleep Are you DNR?: No Advance Directives: No Advance Directives Information Provided: Yes Nutrition Risks: No Nutritional Risk Patient : No Current occupational status: disabled Current occupation: right hand dominant Meds Allergies Allergy/AdvReac Type Severity Reaction Status Date / Time bee pollen Allergy Intermediate bee sting- Verified 12/06/24 06:20 swelling fentanyl Allergy Mild Rash Verified 12/06/24 06:20 morphine Allergy Mild Shortness Verified 09/20/24 14:07 of Breath Home Medications ?Medication ?Instructions ?Recorded ?Confirmed ?Last Taken ?Type albuterol sulfate 90 mcg/actuation 1 inh inhalation QID 04/07/23 12/06/24 12/06/24 History aerosol inhaler (Ventolin HFA) amlodipine 10 mg tablet 10 mg PO DAILY 04/07/23 09/20/24 12/06/24 04:30 History atorvastatin 40 mg tablet 40 mg PO DAILY 04/07/23 09/20/24 Unknown History bupropion HCl 300 mg 24 hr tablet, 300 mg PO QAM 04/07/23 09/20/24 12/06/24 04:30 History extended release buspirone 7.5 mg tablet 7.5 mg PO BID 04/07/23 09/20/24 Unknown History chlorthalidone 25 mg tablet 25 mg PO DAILY 04/07/23 09/20/24 Unknown History epinephrine 0.3 mg/0.3 mL 0.3 mg IM Q4H PRN 04/07/23 09/20/24 Unknown History injection, auto-injector fluticasone propionate 115 2 puff inhalation BID 04/07/23 12/06/24 12/06/24 History mcg-salmeterol 21 mcg/actuation HFA inhaler (Advair HFA) gabapentin 300 mg capsule 300 mg PO TID 04/07/23 09/20/24 Unknown History losartan 100 mg tablet 100 mg PO DAILY 04/07/23 09/20/24 Unknown History ondansetron 4 mg disintegrating 4 mg PO Q8H 04/07/23 09/20/24 Unknown History tablet oxycodone 15 mg tablet,crush 15 mg PO Q12H 04/07/23 09/20/24 Unknown History resistant,extended release 12 hr (OxyContin) pantoprazole 40 mg tablet,delayed 40 mg PO DAILY 04/07/23 09/20/24 Unknown History release (Protonix) polyethylene glycol 3350 17 17 g PO DAILY 04/07/23 09/20/24 Unknown History gram/dose oral powder (Miralax) quetiapine 25 mg tablet mg PO 07/27/23 09/20/24 Unknown History acetaminophen 650 mg mg PO 02/28/24 09/20/24 12/06/24 04:30 History tablet,extended release fluoxetine 10 mg capsule 10 mg PO DAILY 02/28/24 09/20/24 Unknown History melatonin 5 mg disintegrating mg PO 02/28/24 09/20/24 Unknown History tablet oxycodone 15 mg tablet,crush 15 mg PO BID 09/05/24 09/20/24 12/06/24 04:30 History resistant,extended release 12 hr (OxyContin) Exam Height,Weight and Vital Signs: Height 5 ft 7 in Weight 109.316 kg Assessment and Plan Assessment Anesthesia Assessment: Chart Reviewed Final Anesthetic Review Family History of Problems with Anesthesia: No History of Problems with Anesthesia: No Documented by User: Galo Carcamo MD 12/06/24 08:08 [facility] Past Medical History Medical History (Updated 02/07/24 @ 19:13 by Brent Kumar MD) Vertigo Asthma Obstructive sleep apnea treated with continuous positive airway pressure (CPAP) 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 Obstructive sleep apnea syndrome Hip pain Mechanical low back pain Migraine Insomnia Hypercholesteremia 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 Diffuse myofascial pain syndrome Diabetes mellitus type 2, controlled Depression, major, single episode, moderate Anxiety Allergic rhinitis Cervical cancer COPD (chronic obstructive pulmonary disease) Family History Family History (Updated 11/30/23 @ 08:29 by Isabella Anderson CMA) Mother Breast cancer Colon cancer Surgical History Surgical History (Updated 12/06/24 @ 06:22 by Mariangel Luciano RN) History of surgery Tubal ligation status H/O gastric sleeve History of total knee replacement Hx of cholecystectomy Social History Social History (Updated 07/27/23 @ 10:10 by LANA Dawson) Patient Tobacco Use Status: Former Tobacco user Use of substances other than those prescribed or required for medical reasons: Yes Substance Use Type Other:: gummies for sleep Are you DNR?: No Advance Directives: No Advance Directives Information Provided: Yes Nutrition Risks: No Nutritional Risk Patient : No Current occupational status: disabled Current occupation: right hand dominant Meds Allergies Allergy/AdvReac Type Severity Reaction Status Date / Time bee pollen Allergy Intermediate bee sting- Verified 12/06/24 06:20 swelling fentanyl Allergy Mild Rash Verified 12/06/24 06:20 morphine Allergy Mild Shortness Verified 09/20/24 14:07 of Breath Home Medications ?Medication ?Instructions ?Recorded ?Confirmed ?Last Taken ?Type albuterol sulfate 90 mcg/actuation 1 inh inhalation QID 04/07/23 12/06/24 12/06/24 History aerosol inhaler (Ventolin HFA) amlodipine 10 mg tablet 10 mg PO DAILY 04/07/23 09/20/24 12/06/24 04:30 History atorvastatin 40 mg tablet 40 mg PO DAILY 04/07/23 09/20/24 Unknown History bupropion HCl 300 mg 24 hr tablet, 300 mg PO QAM 04/07/23 09/20/24 12/06/24 04:30 History extended release buspirone 7.5 mg tablet 7.5 mg PO BID 04/07/23 09/20/24 Unknown History chlorthalidone 25 mg tablet 25 mg PO DAILY 04/07/23 09/20/24 Unknown History epinephrine 0.3 mg/0.3 mL 0.3 mg IM Q4H PRN 04/07/23 09/20/24 Unknown History injection, auto-injector fluticasone propionate 115 2 puff inhalation BID 04/07/23 12/06/24 12/06/24 History mcg-salmeterol 21 mcg/actuation HFA inhaler (Advair HFA) gabapentin 300 mg capsule 300 mg PO TID 04/07/23 09/20/24 Unknown History losartan 100 mg tablet 100 mg PO DAILY 04/07/23 09/20/24 Unknown History ondansetron 4 mg disintegrating 4 mg PO Q8H 04/07/23 09/20/24 Unknown History tablet oxycodone 15 mg tablet,crush 15 mg PO Q12H 04/07/23 09/20/24 Unknown History resistant,extended release 12 hr (OxyContin) pantoprazole 40 mg tablet,delayed 40 mg PO DAILY 04/07/23 09/20/24 Unknown History release (Protonix) polyethylene glycol 3350 17 17 g PO DAILY 04/07/23 09/20/24 Unknown History gram/dose oral powder (Miralax) quetiapine 25 mg tablet mg PO 07/27/23 09/20/24 Unknown History acetaminophen 650 mg mg PO 02/28/24 09/20/24 12/06/24 04:30 History tablet,extended release fluoxetine 10 mg capsule 10 mg PO DAILY 02/28/24 09/20/24 Unknown History melatonin 5 mg disintegrating mg PO 02/28/24 09/20/24 Unknown History tablet oxycodone 15 mg tablet,crush 15 mg PO BID 09/05/24 09/20/24 12/06/24 04:30 History resistant,extended release 12 hr (OxyContin) Exam Airway Mallampati Class: II TM Dist: >3cm Neck ROM: Full Denture: Upper and Lower Heart: ok Lungs: ok Assessment and Plan Assessment Anesthesia Assessment: Anesthesia Plan Discussed Final Anesthetic Review NPO: Yes ASA Class: III Final Preanesthetic Review: No Changes in Pt Med Stat, Meds/Allgs Chart Reviewed, Consent Obtained/Reviewed and Anes Risks/Benef Reviewed Patient Risk: High Procedure Risk: Intermediate Anesthetic Plan Anesthetic Plan: GA and Agree w/ Assess. and Plan Disposition: Standard PACU
[2024-12-06] VITALS (11 sets, daily range): BP systolic 123–167; BP diastolic 64–92; PULSE 9–82; RESP 14–22; TEMP 36.3–37.2; O2SAT 93–97; BMI 39.8
--- NOTE | ~2024-12-06 | FL_ITS ---
EXAMINATION: XR FLUOROSCOPY WITH IMAGES CLINICAL INFORMATION: Right SI joint fusion. COMPARISON: 04/15/2024 CT pelvis TECHNIQUE: Fluoroscopy provided to: Dr. Garcia Fluoroscopy time: 50 seconds DAP: 16.966 Gycm2 Images: 5 FINDINGS: 5 fluoroscopic spot images obtained during surgical fusion of the right SI joint. Please refer to the full operative report for details. FL/FL guidance in OR IMPRESSION: Fluoroscopic guidance. Electronically signed by: Lisandro Soni MD 12/06/2024 08:57 AM [facility]
--- OUTSIDE RECORDS SUMMARY | 2024-12-06 05:56 | XMS_ITS | Clinical Summary ---
Author Organization [facility] it Address [address] [place] [address] Care Team Providers Care Company Driver Name Role Phone Unavailable Primary Care Provider Unavailabl e Social History Tobacco Use Types Packs/Day Years Used Date Smoking Tobacco: Never Assessed Sex and Gender Information Value Date Recorded Sex Assigned at Not on file Gender Identity Not on file Sexual Orientation Not on file Plan of Treatment Health Maintenance Due Date Last Done Comments Breast Cancer Screening 1969 DTaP,Tdap,and Td Vaccines (1 - Tdap) 1988 Hepatitis B Vaccines (1 of 3 - 19+ 3-dose series) 1988 Cervical Cancer Screening: P ap Smear 1990 Zoster Vaccines (1 of 2) 2019 Colorectal Cancer Screening: Colonoscopy 10/02/2022 Depression Screening 10/02/2022 HIV Screening 10/02/2022 Hepatitis C Screening 10/02/2022 Social Influencers of Health Screening 10/02/2022 COVID-19 Vaccine (2023-2 5 season) 2024 Influenza Vaccine (#1) 2024 HIB Vaccines Aged Out No longer eligi ble based on patient's age to complete this topic HPV Vaccines Aged Out No longer eligi ble based on patient's age to complete this topic Hepatitis A Vaccines Aged Out No long er eligible based on patient's age to complete this topic IPV Vaccines Aged Out No longer eligi ble based on patient's age to complete this topic MMR Vaccines Aged Out No longer eligi ble based on patient's age to complete this topic Meningococcal ACWY Vaccine Aged Out N o longer eligible based on patient's age to complete this topic Pneumococcal Vaccine: Pediat rics (0 to 5 Years) and At-Risk Patients (6 to 64 Years) Aged Out No longer eligible b ased on patient's age to complete this topic RSV Immunization Patients Un kenzie 20 months Aged Out No longer eligible b ased on patient's age to complete this topic Varicella Vaccines Aged Out No longer eligible based on patient's age to complete this topic
--- OUTSIDE RECORDS SUMMARY | 2024-12-06 05:56 | XMS_ITS | Data Portability ---
Author Organization [employer] [facility] [place] - [employer] Address [address] [place] [phone] Care Team Providers Care Extension Educator Name Role Phone [facility] Primary Care Provider HIM CCA OTHER Assessment Encounter Date Assessment Date Assessment LastModified by Organization Details LastModified Time 10/22/2024 10/22/2024 I have reviewed and agree with the assessment and plan as documented by the waterproof bag cutting machine operator. I provided real-time medical direction for this encounter and was immediately available to provide additional phone-based assistance as needed. 54F presenting with URTI symptoms. No fever, mild headache, congestion, body aches. Pt was exposed to RSV recently. Using OTC meds with good relief. Hydrating appropriately. Exam unremarkable, vitals at baseline. COVID/Strep/Flu negative. Recommend supportive care. Red flags and return precautions discussed. paysola Not available 10/22/2024 15:44:16 10/28/2024 10/28/2024 Evaluation in the field was performed by my waterproof bag cutting machine operator colleague, as noted above, I provided real-time direction and supervision for this visit. This is a 54yo F with hx of COPD, HTN who presents complaining of flulike symptoms. She has been sick for about a week with body aches, headaches, productive cough, congestion, SOB. Has been using her albuterol inhaler with relief. Has not taken temp to know whether or not she has a fever. C/o decreased appetite but no vomiting or diarrhea. [facility] recommended supportive care. Has been taking tylenol as well which helps but she still feels bad. PE: General: Awake & alert, NAD Respiratory: Chest rise equal bilat, no increased wob CV: Regular rate, normal peripheral perfusion Impression: Upper respiratory infection COPD exacerabation Plan: -VSS, O2 92% on RA but w/COPD is likely normal for her -No stethoscope on truck for lung ascultation, but pt not exhibiting any signs of respiratory distress. -Neg COVID and Influenza poc testing today. -Pt given DuoNeb x2, ODT ondansetron, and 600mg ibuprofen. Reporting improvement in breathing, states chest feels clear. -Will prescribe prednisone 20mg daily for 4 days after 40mg prednisone po x1 given on scene. -Will treat COPD exacerbation with azithromycin. 500mg po x1 given on scene, prescribed 250mg daily for 4 days. -Can continue other symptomatic care and f/u with PCP. Disposition: Remain at home We discussed the diagnostic uncertainty of home visits and the risk associated with this. In this case, the patient and I felt this to be an acceptable and reasonable amount of risk given the benefit of avoiding an ED visit. We discussed the need to seek care urgently/emergen tly in the setting of any new or worsening serious symptoms. [email or web address] Not available 10/28/2024 16:11:51 Plan of Treatment Reminders Order Date Submit Date Provider Last Modified By Organization Details Last Modified Time Details Appointments None recorded. Lab rapid SARS CoV 2 Ag, QL IA, respiratory specimen 2023 024 [facility], [address] [place] [address], [id number], 4 15:44:40 rapid flu (A+B) 2023 024 [facility], [address] [place] [address], [id number], 4 15:44:40 rapid strep group A, throat 2023 024 [facility], [address] [place] [address], [id number], 4 17:44:50 rapid SARS CoV 2 Ag, QL IA, respiratory specimen 2023 024 [facility], [address] [place] [address], [id number], 4 08:55:22 rapid flu (A+B) 2023 024 [facility], [address] [place], [id number], 4 08:55:37 Referral None recorded. Procedures None recorded. Surgeries None recorded. Imaging None recorded. Medication Orders ipratropium 0.5 mg-albutero l 3 mg (2.5 mg base)/3 mL nebulizatio n soln [address], [address] [place] [address], [id number], 4 15:52:29 ondansetron 4 mg disintegrat ing tablet [address], [address] [place] [address], [id number], 4 15:52:34 ibuprofen 600 mg tablet [address], [address] [place] [address], [id number], 4 15:52:42 prednisone 20 mg tablet [address], [address] [place], [address], 4 16:06:03 prednisone 20 mg tablet [address] [facility], [address] [place] [address], [id number], 4 16:08:50 azithromyci n 500 mg tablet [address], [address] [place] [address], [address], 4 16:08:47 ipratropium 0.5 mg-albutero l 3 mg (2.5 mg base)/3 mL nebulizatio n soln 2023 024 [email or web address] [facility], [address] [place] [address], [id number], 16:08:47 azithromyci n 250 mg tablet 2023 024 SHIL[facility], [address] [facility], [place], [address], 16:08:50 Patient TargetsNo targets recorded. Patient InstructionsNo instructions recorded. Reason for Referral None Reported. Results Created Date Observation Date Name Description Value Unit Range Abnormal Flag Note LastModifiedBy Organization Detail LastModifiedTime Result Notes None recorded. Medical Equipment None Reported. Allergies Allergen ID Allergen Name Allergen Category Reaction Reaction Severity Criticality Documentation Date Start Date Code Code System Note Provider Name and Address Organization Details Recorded Time 87886 fentanyl medicatio n Not available Not available Not available 10/22/2024 4337 RxNorm Not Available [facility] - production 10:48:14 75928 morphine medicatio n Not available Not available Not available 10/22/2024 7052 RxNorm Not Available [facility] - production 10:48:14 Medications Name Sig Start Date Stop Date Status Note LastModified by Organization Details LastModified Time melatonin 5 mg fast dissolv active Not Available Not Available Not Available quetiapine 25 mg tablet active Not Available Not Available Not Available fluoxetine 40 mg capsule active Not Available Not Available Not Available atorvastatin 40 mg tablet active Not Available Not Available Not Available ipratropium 0.5 mg-albuterol 3 mg (2.5 mg base)/3 mL nebulization soln Inhale 3 mL by nebulizatio n route. 2023 active Not Available Not Available Not Avai lable cetirizine 10 mg tablet active Not Available Not Available Not Available azithromycin 250 mg tablet TAKE 1 TABLET (250 MG) BY ORAL ROUTE ONCE DAILY FOR 4 DAYS active Not Available Not Available No t Available prednisone 20 mg tablet Take 1 tablet every day by oral route for 4 days. active Not Available Not Available No t Available triamterene 37.5 mg-hydrochlo rothiazide 25 mg capsule active Not Available Not Available Not Available acetaminophe n ER 650 mg tablet,exten ded release active Not Available Not Available Not Available tamsulosin 0.4 mg capsule active Not Available Not Available Not Available phenazopyrid ine 100 mg tablet active Not Available Not Available Not Available amlodipine 10 mg tablet active Not Available Not Available Not Available pantoprazole 40 mg tablet,delay ed release active Not Available Not Available N ot Available fluoxetine 10 mg capsule active Not Available Not Available Not Available gabapentin 300 mg capsule active Not Available Not Available Not Available zolpidem 5 mg tablet active Not Available Not Available No t Available ibuprofen 600 mg tablet Take 600 mg by oral route. 2023 active Not Available Not Available Not Avai lable ondansetron 4 mg disintegrati ng tablet Place 1 tablet by translingua l route. 2023 active Not Available Not Available Not Avai lable losartan 100 mg tablet active Not Available Not Available No t Available fluoxetine 20 mg capsule active Not Available Not Available Not Available cholecalcife rol (vitamin D3) 125 mcg (5,000 unit) capsule active Not Available Not Available Not Available Ventolin HFA 90 mcg/actuatio n aerosol inhaler active Not Available Not Available Not Available buspirone 15 mg tablet active Not Available Not Available No t Available oxycodone 5 mg tablet active Not Available Not Available No t Available bupropion HCl SR 200 mg tablet,12 hr sustained-re lease active Not Available Not Available Not Available vitamin A palmitate 3,000 mcg (10,000 unit) capsule active Not Available Not Available Not Available azithromycin 500 mg tablet Take 1 tablet by oral route. 2023 active Not Available Not Available Not Avai lable cyclobenzapr ine 5 mg tablet active Not Available Not Available Not Available Advair HFA 115 mcg-21 mcg/actuatio n aerosol inhaler active Not Available Not Available Not Available melatonin 5 mg disintegrati ng tablet active Not Available Not Available No t Available OxyContin 15 mg tablet,crush resistant,ex tended release active Not Available Not Available Not Available baclofen 5 mg tablet active Not Available Not Available No t Available Kloxxado 8 mg/actuation nasal spray active Not Available Not Available Not Available Vitals Date Recorded Body weight Body temperature Oxygen saturation Oxygen saturation in Arterial blood by Pulse oximetry Heart rate Body height Respiratory rate Systolic blood pressure Diastolic blood pressure Provider Name and Address Organization Details Last Updated DateTime 4 229702. 08 g 98.4 [degF] 96 % 96 % 86 /min 170.18 cm 18 /min 154 mm[Hg] 58 mm[Hg] Not Available [facility] 4 15:27:35 Date Recorded Heart rate Respiratory rate Oxygen saturation Oxygen saturation in Arterial blood by Pulse oximetry Body temperature Body weight Body height Systolic blood pressure Diastolic blood pressure Provider Name and Address Organization Details Last Updated DateTime 4 98 /min 16 /min 92 % 92 % 98.6 [degF] 781288. 08 g 170.18 cm 144 mm[Hg] 83 mm[Hg] Not Available [facility] 4 15:35:00 Date Recorded Oxygen saturation Oxygen saturation in Arterial blood by Pulse oximetry Body temperature Heart rate Respiratory rate Systolic blood pressure Diastolic blood pressure Provider Name and Address Organization Details Last Updated DateTime 5 98 % 98 % 97.8 [degF] 80 /min 16 /min 170 mm[Hg] 90 mm[Hg] Not Available [facility] [employer] 5 14:30:36 Social History None recorded. Functional Status None recorded. Mental Status None recorded. Family History Nothing Reported. Medical History No medical history recorded. Gynecological HistoryNo gynecological history recorded. Obstetrics History GPAL:G 0 P 0 0 0 0 Past Encounters Encounter ID Performer Location Encounter Start Date Encounter Closed Date Diagnosis/Indication Diagnosis SNOMED-CT Code Diagnosis ICD10 Code Diagnosis Note [id number] Jailene Stephens MD [facility] [address] [place] [phone] 10/22/2024 15:27:32 10/22/2024 19:10:23 Viral upper respiratory tract infection 535900897 J06.9 [id number] Natasha Patricia MD [facility] - [facility] [address] [place] [phone] 10/28/2024 15:34:58 10/29/2024 22:05:52 Upper respiratory infection 31272753 J06.9 Acute exac erbation of chronic obstructive pulmonary disease 833157286 J44.1 [id number] Tatianna Chan MD Main - [address] [phone] 11/26/2024 14:23:31 11/26/2024 22:25:30 Edema of lower extremity 640031480 R60.0 54 year old female being evaluated for several weeks of lower extremity edema and also R hand. Patient denies any new medication s or exposures, and is compliant with all her medication s. No swelling elsewhere, no pain in the edematous areas, and no dyspnea. Exam notable for normal vital signs, lower extremitie s with bilateral pedal edema not involving the ankles, R dorsum of hand with slight fullness, no skin rashes or erythema. Presentati on suggestive of slight peripheral edema possibly related to patient's amlodipine , vs angioedema vs underlying renal or cardiac pathology. No indication for urgent diuresis today, therefore no labs drawn. Recommend outpatient FU at next availabili ty to perform full review of medication s and additional work up. I have reviewed and agree with the assessment and plan as documented by the waterproof bag cutting machine operator. I provided real-time medical direction for this encounter and was immediatel y available to provide additional phone-base d assistance as needed. We discussed the diagnostic uncertaint y of home visits and associated risks. We discussed the need to seek care urgently/e mergently in the setting of any new or worsening symptoms. Health Concerns Section Related Observation LastModified by Organization Detai ls LastModified Time None Recorded Concern Status LastModified by Organization Details LastModified Time None Recorded Advance Directives Directive None Recorded Payers Encounter Date Sequence Insurance Name Policy Number Policy Dixon Covered Member ID Dixon Member ID Guarantor Name 10/22/2024 1 [facility] - DOS ON OR AFTER 2023 - DUAL ELIGIBLE - LONG TERM OPTIONS AND ONE CARE (MEDICARE REPLACEMENT/ADV ANTAGE - HMO) Indy Beltran is [id number] Indy Dubois 10/28/2024 1 [facility] - DOS ON OR AFTER 2023 - DUAL ELIGIBLE - LONG TERM OPTIONS AND ONE CARE (MEDICARE REPLACEMENT/ADV ANTAGE - HMO) Indy Beltran is [id number] Indy Dubois 11/26/2024 1 [facility] - DOS ON OR AFTER 2023 - DUAL ELIGIBLE - LONG TERM OPTIONS AND ONE CARE (MEDICARE REPLACEMENT/ADV ANTAGE - HMO) Indy Beltran is [id number] Indy Dubois Notes Date Note Type Note Provider Name and Address Organization Details Recorded Time 10/22/2024 text/html [facility] Nurse Triage Notes (Myranda Flores - CED): Reason For Request: Pt reporting cold like symptoms>breathing problems>sore throat, nausea, stuffy nose, headache>notes having a fever last night>grandson and daughter tested positive for RSV Patient Reports: Shortness of breath with exertion Denies: Increased work of breathing/labored ? with or without fever Unable to speak in full sentences without distress Discoloration of skin -cyanosis Needs to sleep sitting up, can? t catch breath Shortness of breath in setting of confusion Chief Complaints: Common cold symptoms, Sore throat, Nausea PMH: Asthma, Diabetes Mellitus Type 2, Fibromyalgia, 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, Hyperlipidemia, Joint Replacement (e.g., Hip, Knee) Comments: Patient states daughter/grandson tested positive for RSV last Monday. Exposed to them 2 days ago. Developed symptoms of fever last night. Temp 101.2 + Sore throat, nausea, headache, nasal congestion and chest heaviness. Shortness of breath with talking. Taking Tylenol for symptom relief. Social Contact Worker Organization Information for Shelly Atkinson [employer] Legal Name: [email or web address]? Address: [address] [place] [address], Shipping Packer: Alberto DHILLON No.: [id number] Social Contact Worker POC Test Results from Shelly Atkinson Rapid influenza antigen (15:25:54) Flu: - Rapid COVID antigen (15:25:55) COVID: - Rapid strep test (15:25:56) Strep: - .................. .................. .................. .................. .................. .................. .................. ............... Social Contact Worker Note From Shelly Atkinson: Sent to a call for a pt complaining of URI symptoms. SC8 arrives on scene, pt is alert and oriented airway is patent. Allergies verified: Fentanyl, Morphine; Pt states, she was exposed to a couple family members on Monday who tested positive for RSV. Pt complains of nausea and feeling feverish yesterday, then the following symptoms starting today: headache, bilateral sinus pain, nasal congestion, dry cough, nausea (decreased), diarrhea, and diffuse abd pain. Pt denies dizziness, cp, sob, vomiting or loc. Pt has been taking Tylenol. BP:154/53, P:86, RR:18, SpO2:96% RA, T:98.4; Head: unremarkable; Lung sounds: clear bilaterally; Abdomen: soft, non-tender, no distention; Back: unremarkable; Extremities: unremarkable; Skin: pink, warm, dry; Rapid covid/flu test: neg; Rapid strep test: neg; [facility] [place]; pt advised to continue symptomatic treatment. Red flags discussed. Pt has no further questions. .................. .................. .................. .................. .................. .................. .................. ............... [facility] Consulted: Jailene Stephens .................. .................. .................. .................. .................. .................. .................. ............... Disposition: Fazal Jailene Stephens MD [address] [facility],[address], [place], [phone], [x+1] 10/22/2024 17:44:52 10/28/2024 text/html CRC Nurse Triage Notes (Claudine Kennedy - RN): Denies: Increased work of breathing/labored ? with or without fever Unable to speak in full sentences without distress Discoloration of skin -cyanosis Needs to sleep sitting up, can? t catch breath Shortness of breath in setting of confusion Chief Complaints: Chest pain, Common cold symptoms, Cough, Breathing problems, Diarrhea, Fever/chills, Fatigue, Nausea, Sore throat, Weakness PMH: Asthma, Diabetes Mellitus Type 2, Fibromyalgia, 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, Hyperlipidemia, Joint Replacement (e.g., Hip, Knee) Comments: Patient calling in to place a referral, identified via name and . Patient seen 10/22, was negative for covid/flu/strep. She calls back today as her symptoms have worsened. She continues with a congested productive cough, sinus pressure and headache, sore throat, n/v/d, and no appetite, +chills, no fever, no chest pain, occasional shortness of breath, she feels weak and fatigued. She has an albuterol inhaler, advair diskus, and has been taking tylenol and robitussin. She would like to be re-evaluated. Social Contact Worker Organization Information for Azael [facility] [employer] Legal Name: [employer]? Address: [address] [place] [address], Shipping Packer: Alberto Garcia MD CLIA No.: [id number] Social Contact Worker POC Test Results from Azael Lambert Rapid COVID antigen (15:30:53) COVID: - Rapid influenza antigen (15:30:58) Flu: - .................. .................. .................. .................. .................. .................. .................. ............... Social Contact Worker Note From Azael Lambert: [facility] makes pt contact a 54 yo F CC of Cold like S/sMIH obtains vital signs. PT test negative for covid and flu. PT has allergies to morphine and fentanyl. PT has hx of COPD. PT explains she was seen by [facility] on the and has gotten worse since then. pt complains of chest congestion, chills, sinus pressure, productive cough (yellow phelgm), running nose (yellow mucus), decreased appetite, nausea, no vomiting. PT able to keep foods down. PT using cough syrup, albuterol MDI, and tyelonl. [facility] contacts [facility] and explains above mentioned. [facility] orders 500mg of azithromycin, 40mg of prednisone, 4mg zofran odt, 600mg of ibuprofen. PT is given two duo nebs with significant relief of SOB. [facility] treats pt for PNA. [facility] sends prescription of azithromycin and prednisone to pt confirmed pharmacy. PT is advised that if she develops a fever not controlled by tyelonl or gets chest pain that she should call 911. Otherwise to continue prescribed medications and call us back for reevaluation. [facility] sana. .................. .................. .................. .................. .................. .................. .................. ............... [facility] Consulted: Natasha Patricia .................. .................. .................. .................. .................. .................. .................. ............... Disposition: Fazal Natasha Patricia MD [address] [place] [address],[address], [place], [phone], [employer] 10/28/2024 17:18:41 11/26/2024 text/html [facility] Nurse Triage Notes (Claudine Kennedy - RN): Reason For Request: pt is experiencing swelling in feet as well as right hand with minimal painDenies: History of Heart Attack, in the setting of active chest pain Active Chest pain, radiates to neck jaw and or arm Diaphoretic/Sweati ng Describes as ? c rushing? Sudden onset of nausea/Vomiting and shortness of breath. Shortness of Breath Unable to speak in full sentences without distress Chief Complaints: SwellingPMH: Asthma, Diabetes Mellitus Type 2, Fibromyalgia, 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, Hyperlipidemia, Joint Replacement (e.g., Hip, Knee)PMH Reviewed at 11/26/2024 13:52Allergies Reviewed at 11/26/2024 13:52Comments: Patient calling in to place a referral, identified via name and . Patient who had puffy feet 2 weeks ago, elevated them and it went down, then started again 3 days ago. No history of CHF, however, takes torsemide daily, no history of gout. She denies pain, redness or warmth, they are nonpitting, no difficulty with ambulating, states she is having good urine output, if anything more than usual. She also reports the top of her right hand is swollen, no pain, and no issues with doing tasks. History of neuropathy. She denies any increase in her fluid or salt intake. She spoke to her PCP who suggested [facility] for evaluation, patient would like to be seen. .................. .................. .................. .................. .................. .................. .................. ............... Social Contact Worker Note From Johnny Moreland: Dispatch to the call address for the female with swelling in her feet and one of her hands. Patient states that two weeks ago she started with some swelling in her feet. It had gone away a little bit and started coming back yesterday and she also noticed this morning that her right hand was slightly swollen. She denies pain in the feet and only complaints of mild pain to her right hand.patient does not have a history of CHF but does take HCTZ for high blood pressure. Patient also takes amlodipine for her hypertension. Patient denies shortness of breath/difficulty breathing, chest pain. Fevers or any other complaints at this time. patient has not had a difficult time ambulating. She? s been able to eat and drink without issue. Patient was found opening door in no obvious distress. CyAOX4. Airway open in patient, breathing non labored and able to speak in full sentences, ? JVD, +CMSx4, ABD soft nontender/distende d, skin color appropriate for race/warm/dry with good turgor, mucous membranes pink and moist, edema to feet, It stops at the ankles slight edema to right hand afebrile. [facility] consulted. Patient was advised to follow up with PCP red flags discussed. All times are approximate. .................. .................. .................. .................. .................. .................. .................. ............... [facility] Consulted: Tatianna Chan .................. .................. .................. .................. .................. .................. .................. ............... Disposition: Fulfilled Tatianna Chan MD [address] [facility],[address], [place], [phone], [employer] [facility] 11/26/2024 14:58:04 OBGyn Episode No OBEpisode recorded.
--- OUTSIDE RECORDS SUMMARY | 2024-12-06 05:56 | XMS_ITS | Continuity of Care Document ---
Author Organization [employer] [facility] [place] [facility] Address [address] [place] [id number] Care Team Providers Care Production Technologist Name Role Phone [facility] Primary Care Provider [facility] OTHER Assessment No assessment recorded. Plan of Treatment Reminders Order Date Submit Date Provider Last Modified By Organization Details Last Modified Time Details Appointments None record ed. Lab None record ed. Referral None record ed. Procedures None record ed. Surgeries None record ed. Imaging None record ed. Medication Orders None record ed. Patient TargetsNo targets recorded. Patient InstructionsNo instructions recorded. Reason for Referral None Reported. Medical Equipment None Reported. Allergies Allergen ID Allergen Name Allergen Category Reaction Reaction Severity Criticality Documentation Date Start Date Code Code System Note Provider Name and Address Organization Details Recorded Time 85661 fentanyl medicatio n Not available Not available Not available 10/22/2024 4337 RxNorm Not Available [facility] - production 4 10:48:14 35808 morphine medicatio n Not available Not available [...] Not Available Not Available Vitals Date Recorded Oxygen saturation Oxygen saturation in Arterial blood by Pulse oximetry Body temperature Heart rate Respiratory rate Systolic blood pressure Diastolic blood pressure Provider Name and Address Organization Details Last Updated DateTime 5 98 % 98 % 97.8 [degF] 80 /min 16 /min 170 mm[Hg] 90 mm[Hg] Not Available [facility] - production 5 14:30:36 Social History None recorded. Functional Status None recorded. Mental Status None recorded. Family History Nothing Reported. Medical History No medical history recorded. Gynecological HistoryNo gynecological history recorded. Obstetrics History GPAL:G 0 P 0 0 0 0 Past Encounters Encounter ID Performer Location Encounter Start Date Encounter Closed Date Diagnosis/Indication Diagnosis SNOMED-CT Code Diagnosis ICD10 Code Diagnosis Note [id number] Natasha Patricia MD Main - [address] [id number] 10/28/2024 15:34:58 10/29/2024 22:05:52 Upper respiratory infection 46480433 J06.9 Acute exac erbation of chronic obstructive pulmonary disease 027556211 J44.1 [id number] Tatianna Chan MD Main - [address] [id number] 11/26/2024 14:23:31 11/26/2024 22:25:30 Edema of lower extremity 652139345 R60.0 54 year old female being evaluated [...] assessment and plan as documented by the general matcher. I provided real-time medical direction for this [...] by Organization Details LastModified Time None Recorded Payers Encounter Date Sequence Insurance Name Policy Number Policy Dixon Covered Member ID Dixon Member ID Guarantor Name 11/26/2024 1 [facility] - DOS ON OR AFTER 2023 - DUAL ELIGIBLE - LONG TERM OPTIONS AND ONE CARE (MEDICARE REPLACEMENT/ADV ANTAGE - HMO) Indy Beltran is [id number] Indy Dubois Notes Date Note Type Note Provider Name and Address Organization Details Recorded Time 11/26/2024 text/html [facility] Nurse Triage Notes (Claudine [...] Replacement (e.g., Hip, Knee)PMH Reviewed at 11/26/2024 - 13:52Allergies Reviewed at 11/26/2024:52Comments: Patient calling in to place a referral, [...] .................. .................. .................. .................. .................. .................. ............... All Round Logger Note From Johnny Moreland: Dispatch to the [...] .................. .................. .................. .................. .................. .................. ............... [facility] [place] Consulted: Tatianna Chan .................. .................. .................. .................. .................. .................. .................. ............... Disposition: Fulfilled Tatianna Chan MD [address] [facility],[address], [place], [address], FIDEL MEJIA 11/26/2024 14:58:04 OBGyn Episode No OBEpisode recorded.
[2024-12-06] MEDS: Lactated Ringers 1,000 ML 100 ML IVCONT (06:59)
--- NOTE | 2024-12-06 07:10 | MHC.SHP ---
Pre-Procedural Eval Section A - 24 Hr Update-Section A only Date of Service: 12/06/24 The patient is an INPATIENT: No Changes since office visit: Yes Patient answered all questions The patient has been examined within 24 hours of the surgical procedure. The History & Physical has been completed within 30 days and I have reviewed it.: No Section B - Complete if H&P > 30 days Chief Complaint: Sacrococcygeal disorders, not elsewhere classified Details of Present Illness: as above Relevant Family History (Specify if Yes): No Relevant Social History: None Present Medications: None Medical History: No relevant PMH History of Previous Operations: Relevant previous surgery/procedure and date(s) Allergies: Allergies Allergy/AdvReac Type Severity Reaction Status Date / Time bee pollen Allergy Intermediate bee sting- Verified 12/06/24 06:20 swelling fentanyl Allergy Mild Rash Verified 12/06/24 06:20 morphine Allergy Mild Shortness Verified 09/20/24 14:07 of Breath Review of Systems Sugical H&P ROS: Negative: Neurological, Hem-Onc, Allergic/Immunologic, Gastrointestinal, Genitourinary, Integumentary, Endocrine and Eyes/Ears/Nose/Throat and Yes, Specify: Constitution (morbid obesity), Cardiovascular (HTN), Respiratory (asthma , FARNAZ), Psychiatric (anxiety, depresion) and Musculoskeletal (sacroiliitis) Exam Surgical H&P Exam: Normal: HEENT, Normal: Heart, Normal: Lungs, Normal: Extremities, Normal: Skin and Normal: Neurological and Significant Findings: Abdomen (enlarged due to i/a & s/q fat) Plan Diagnosis/Plan: Unchanged I have reviewed the history and physical and performed a pertinent physical examination on my patient. No changes have occurred unless specified. Time Spent With Patient Time: Total time managing care of this patient today ____ minutes.
--- NOTE | 2024-12-06 07:13 | P.OP_ITS ---
Operative Note Operative Note Date of Service: 12/06/24 Narrative: Right sacroiliac joint stabilisation procedure. posterior sacroiliac joint fusion using LINQ SI joint stabilization system with C-arm fluoroscopy for guidance.? Indy is very pleasant 53 years old female who presented today 12/06/2024 for the treatment of the sacroiliac joint instability and sacroiliac joint pain as well as sacroiliitis in the operating room with sacroiliac joint stabilization with fusion on the right side Informed consent was obtained. The risks and benefits including bleeding, infection, peripheral nerve damage, failure to reduce the pain were explained to the patient.?The patient came to the operating room, she was positioned on the operating table prone, [place] [employer] monitors were applied and the patient was induced with general anesthesia in prone position, after which Dr. Galo Carcamo inserted LMA to the patient's larynx. Time-out was performed delineating correct site, side, and nature of the procedure, name and date of of the patient, risk of fire, need for DVT prophylaxis, need for antibiotics.? The patient received cefazolin 3 g intravenously approximately 25 minutes before onset of the procedure. All pressure points were protected again. Lower back and bilateral buttocks were prepped with ChloraPrep and draped with full body drape including ioban film. Sterilely draped C-arm was brought over the operating field and sq picture of the right sacroiliac joint was demonstrated on the screen. Contralateral oblique view 30 degrees demonstrated proper position of sacroiliac joint anterior portion superimposing sacroiliac joint posterior portion. In the projection of the left S1 foramina 3 cm midline incision was performed. Soft tissue dissection was done to sacroiliac joint and thorough blind dissection was made in the direction of the right?sacroiliac joint. Blunt? K- wire pin was inserted into the right sacroiliac joint and guiding instrument was inserted into the joint using the pin as a guide and advanced into the joint on the intermittent anterior posterior, oblique and lateral views.??? After that the sacroiliac joint introduction cannula was inserted over the pain and advanced into the sacroiliac joint with hammering. The image was saved on proper position of sacroiliac joint introduction cannula positioned in the left sacroiliac joint. The pin was removed and rasping device was inserted to broach and rasp sacroiliac joint's bilateral lips.? Once joint was prepared the structural allograft implant was hammered into the joint . It was packed with ortho biologics in and around the implant to provide better opportunity? for bones fusion.? The position of the allograft was confirmed radiographically.? After allograft positions were documented on the lateral view the wound was irrigated, thorough hemostasis was achieved, wound was closed in 2 layers.? Surgery was concluded by performing standard suture closing technique:? 0 Polysorb suture was used to close the wound and ruth were used to apptoximate the level of the skin.? [place] were applied to the edges of the wound bacitracin dressing using 4x4s and the Medipore tape were applied. After that patient was awakened, transferred stable to PACU.
[2024-12-06 07:34] LABS: Glucose, Whole Blood 161 mg/dL (60-115)
--- NOTE | 2024-12-06 09:03 | P.BOP_ITS ---
Brief Operative Note Date of Service: 12/06/24 Pre-op diagnosis: Sacroiliitis, right SI joint dysfunction. Post-op diagnosis: same Procedure: Sacroiliac joint stabilization with fusion pain teq Implants: Sacroiliac joint stabilization graft and ortho biologicals in the sacroiliac joint. Surgeon: Jeremy Garcia MD Anesthesia: GLMA Was an Sheet Metal Engineer used for this Procedure?: No Estimated blood loss (mL): 28 Pathology: none sent Condition: stable Disposition: PACU
[2024-12-06] MEDS: fentaNYL citrate/PF 100 MCG/2 ML VIAL 50 MCG IVPUSH ×2 (09:20→09:25)
[2024-12-06] MEDS: ondansetron HCL 4 MG/2 ML VIAL IVPUSH (09:27)
[2024-12-06] MEDS: Acetaminophen 325 MG TABLET 975 MG PO (10:01)
[2024-12-06] MEDS: oxyCODONE HCl Immed Release 5 MG TABLET PO (10:01)
[2024-12-06 11:32] LABS: MRSA Nasal PCR NEGATIVE (Negative); SA Nasal PCR NEGATIVE (Negative)
== END 2024-12-06 10:55 | disposition home or self-care (01) ==
PROVIDERS: Registered Nurse Emergency; PCP Internal Medicine; Visit Provider Anesthesiology
PROC: (CPT 27279; principal; 2024-12-06 07:30)
DX: M46.1 Sacroiliitis, not elsewhere classified (principal); M53.3 Sacrococcygeal disorders, not elsewhere classified; M79.18 Myalgia, other site; M47.816 Spondylosis without myelopathy or radiculopathy, lumbar region; M54.50 Low back pain, unspecified; I10 Essential (primary) hypertension; E78.00 Pure hypercholesterolemia, unspecified; J44.9 Chronic obstructive pulmonary disease, unspecified; E11.9 Type 2 diabetes mellitus without complications; G43.909 Migraine, unspecified, not intractable, without status migrainosus; F41.9 Anxiety disorder, unspecified; Z96.651 Presence of right artificial knee joint; Z79.891 Long term (current) use of opiate analgesic; Z79.51 Long term (current) use of inhaled steroids; Z79.899 Other long term (current) drug therapy; Z88.5 Allergy status to narcotic agent; Z98.84 Bariatric surgery status; Z90.49 Acquired absence of other specified parts of digestive tract; Z87.891 Personal history of nicotine dependence
CPT/HCPCS: 27279; 82947; 87640; 87641; C1713; J0690; J2003; J2405; J2704; J2795; J3010; J3370

== ENCOUNTER → 2024-12-06 05:53 | Outpatient (BNV) | CPT/HCPCS: 27279 ==

== ENCOUNTER 2024-12-13 09:49 | Outpatient (AMB) | payer OTHER, SELFPAY ==
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
[2024-12-13 09:53] VITALS: BP 179/90; PULSE 90; O2SAT 97; BMI 39.8
--- OUTSIDE RECORDS SUMMARY | 2024-12-13 10:20 | XMS_ITS | Data Portability ---
Author Organization [facility], [place] Address [address] [place] [phone] Care Team Providers Care Express Clerk Name Role Phone [facility] Primary Care Provider HIM [facility] OTHER Assessment Encounter Date Assessment Date Assessment LastModified by Organization Details LastModified Time 10/22/2024 10/22/2024 I have reviewed and agree with the assessment and plan as documented by the tank truck engine mechanic. I provided real-time medical direction for this [...] in the field was performed by my tank truck engine mechanic colleague, as noted above, I provided real-time [...] no vomiting or diarrhea. [facility] recommended supportive [facility]. Has [...] Ag, QL IA, respiratory specimen 2023 024 [facility], [address] [place] [address], [phone], 4 08:55:22 rapid flu (A+B) 2023 024 [facility], [address] [place] [address], [phone], 4 08:55:37 rapid SARS CoV 2 Ag, QL IA, respiratory specimen 2023 024 [facility], [address] [place] [address], [phone], 4 15:44:40 rapid flu (A+B) 2023 024 [facility], [address] [place] [address], [id number], 4 15:44:40 rapid strep group A, throat 2023 024 [email or web address], [address] [place], [address], 4 17:44:50 Referral None recorded. Procedures None recorded. Surgeries None recorded. Imaging None recorded. Medication Orders ipratropium 0.5 mg-albutero l 3 mg (2.5 mg base)/3 mL nebulizatio n soln [address], [address] [place] [address], [address], 4 15:52:29 ondansetron 4 mg disintegrat ing tablet [address], [address] [place] [address], [address], 4 15:52:34 ibuprofen 600 mg tablet [address], [address] [place] [address], [address], 4 15:52:42 prednisone 20 mg tablet [address], [address] [place] [address], [address], 4 16:06:03 prednisone 20 mg tablet 2023 024 [facility], [address] [place] [address], [address], 4 16:08:50 azithromyci n 500 mg tablet [address], [address] [place] [address], [address], 4 16:08:47 ipratropium 0.5 mg-albutero l 3 mg (2.5 mg base)/3 mL nebulizatio n soln 2023 024 [email or web address] [facility] [place], [address] [place] [address], [address], 16:08:47 azithromyci n 250 mg tablet 2023 024 SHILOH [facility] [place], [address] [facility], [place], [address], 16:08:50 Patient TargetsNo targets recorded. Patient InstructionsNo [...] Name and Address Organization Details Recorded Time 14514 fentanyl medicatio n Not available Not available Not available 10/22/2024 4337 RxNorm Not Available [facility] - production 10:48:14 20135 morphine medicatio n Not available Not available [...] Address Organization Details Last Updated DateTime 4 333009. 08 g 98.4 [degF] 96 % 96 [...] /min 92 % 92 % 98.6 [degF] 727733. 08 g 170.18 cm 144 mm[Hg] 83 mm[Hg] Not Available [facility] 4 15:35:00 Date Recorded Oxygen saturation Oxygen saturation in Arterial blood by Pulse oximetry Body temperature Heart rate Respiratory rate Systolic blood pressure Diastolic blood pressure Provider Name and Address Organization Details Last Updated DateTime 5 98 % 98 % 97.8 [degF] 80 /min 16 /min 170 mm[Hg] 90 mm[Hg] Not Available [facility] [employer] 5 14:30:36 Social History None recorded. Functional Status None recorded. Mental Status None recorded. Family History Nothing Reported. Medical History No medical history recorded. Gynecological HistoryNo gynecological history recorded. Obstetrics History GPAL:G 0 P 0 0 0 0 Past Encounters Encounter ID Performer Location Encounter Start Date Encounter Closed Date Diagnosis/Indication Diagnosis SNOMED-CT Code Diagnosis ICD10 Code Diagnosis Note [id number] Jailene Stephens MD [facility] [address] [place] [phone] 10/22/2024 15:27:32 10/22/2024 19:10:23 Viral upper respiratory tract infection 956971862 J06.9 [id number] Natasha Patricia MD Main - [facility] [address] [place] [phone] 10/28/2024 15:34:58 10/29/2024 22:05:52 Upper respiratory infection 09647308 J06.9 Acute exac erbation of chronic obstructive pulmonary disease 296150021 J44.1 [id number] Tatianna Chan MD Main - [address] [phone] 11/26/2024 14:23:31 11/26/2024 22:25:30 Edema of lower extremity 578849286 R60.0 54 year old female being evaluated [...] assessment and plan as documented by the tank truck engine mechanic. I provided real-time medical direction for this [...] Dixon Member ID Guarantor Name 10/22/2024 1 [facility] - DOS ON OR AFTER 2023 - DUAL ELIGIBLE - INTERMEDIATE OPTIONS AND ONE CARE (MEDICARE REPLACEMENT/ADV ANTAGE - HMO) Indy Beltran is [id number] Indy Dubois 10/28/2024 1 [facility] - DOS ON OR AFTER 2023 - DUAL ELIGIBLE - INTERMEDIATE OPTIONS AND ONE CARE (MEDICARE REPLACEMENT/ADV ANTAGE - HMO) Indy Beltran is [id number] Indy Dubois 11/26/2024 1 [facility] - DOS ON OR AFTER 2023 - DUAL ELIGIBLE - INTERMEDIATE OPTIONS AND ONE CARE (MEDICARE REPLACEMENT/ADV ANTAGE - HMO) Indy Beltran is [id number] Indy Dubois Notes Date Note Type Note [...] talking. Taking Tylenol for symptom relief. Social Director Organization Information for Shelly Atkinson Care Thread Legal Name: [facility], [employer]? Address: [address] [place] [address], Medical Library Assistant: Alberto DHILLON No.: [id number] Social Director POC Test Results from Shelly Atkinson Rapid influenza antigen (15:25:54) Flu: - Rapid COVID antigen (15:25:55) COVID: - Rapid strep test (15:25:56) Strep: - .................. .................. .................. .................. .................. .................. .................. ............... Social Director Note From Shelly Atkinson: Sent to a [...] covid/flu test: neg; Rapid strep test: neg; [facility] consulted; pt advised to continue symptomatic treatment. Red flags discussed. Pt has no further questions. .................. .................. .................. .................. .................. .................. .................. ............... [facility] Consulted: Jailene Stephens .................. .................. .................. .................. .................. .................. .................. ............... Disposition: Fazal Jailene Stephens MD [address] [facility],[address], [place], [address], [employer] 10/22/2024 17:44:52 10/28/2024 text/html CRC Nurse Triage [...] She would like to be re-evaluated. Social Director Organization Information for Azael [facility] Legal Name: [employer]? Address: [address] [place] [address], Medical Library Assistant: Alberto Garcia MD CLIA No.: [id number] Social Director POC Test Results from Aza[facility] Lambert Rapid COVID antigen (15:30:53) COVID: - Rapid influenza antigen (15:30:58) Flu: - .................. .................. .................. .................. .................. .................. .................. ............... Social Director Note From Azael Lambert: [facility] makes pt contact a 54 yo F CC of Cold like S/sMIH obtains vital signs. PT test negative for covid and flu. PT has allergies to morphine and fentanyl. PT has hx of COPD. PT explains she was seen by [facility] on the and has gotten worse since then. pt complains of chest congestion, chills, sinus pressure, productive cough (yellow phelgm), running nose (yellow mucus), decreased appetite, nausea, no vomiting. PT able to keep foods down. PT using cough syrup, albuterol MDI, and tyelonl. [facility] contacts [facility] and explains above mentioned. [facility] orders 500mg of azithromycin, 40mg of prednisone, 4mg zofran odt, 600mg of ibuprofen. PT is given two duo nebs with significant relief of SOB. [facility] treats pt for PNA. [facility] sends prescription of azithromycin and prednisone to pt confirmed pharmacy. PT is advised that if she develops a fever not controlled by tyelonl or gets chest pain that she should call 911. Otherwise to continue prescribed medications and call us back for reevaluation. [facility] sana. .................. .................. .................. .................. .................. .................. .................. ............... [facility] Consulted: Natasha Patricia .................. .................. .................. .................. .................. .................. .................. ............... Disposition: Fazal Natasha Patricia MD [address] [place] [address],[address], [place], [address], [facility] 10/28/2024 17:18:41 11/26/2024 text/html CRC Nurse Triage [...] .................. .................. .................. .................. .................. ............... Social Director Note From Johnny Moreland: Dispatch to the [...] .................. .................. .................. .................. .................. .................. ............... [facility] Consulted: Tatianna Chan .................. .................. .................. .................. .................. .................. .................. ............... Disposition: Fulfilled Tatianna Chan MD [address] [facility],[address], [place], [address], [facility] 11/26/2024 14:58:04 OBGyn Episode No OBEpisode recorded.
--- OUTSIDE RECORDS SUMMARY | 2024-12-13 10:20 | XMS_ITS | Clinical Summary ---
Author Organization [facility] Address [address] [place] [address] Care Team Providers Care Transit Vehicle Inspector Name Role Phone Unavailable Primary Care Provider Unavailabl e Social History Tobacco Use Types Packs/Day Years Used Date Smoking Tobacco: Never Assessed Comments Unknown Sex and Gender Information Value Date Recorded Sex Assigned at Not on file Legal Sex Female 4:27 AM EST Gender Identity Not on file Sexual Orientation Not on file Plan of Treatment Health Maintenance Due Date Last Done Comments Breast Cancer Screening 1969 DTaP,Tdap,and Td Vaccines (1 - Tdap) 1988 Hepatitis B Vaccines (1 of 3 - 19+ 3-dose series) 1988 Cervical Cancer Screening: P ap Smear 1990 Pneumococcal Vaccine: 50+ Ye ars (1 of 1 - PCV) 2019 Zoster Vaccines (1 of 2) 2019 Colorectal Cancer Screening: Colonoscopy 10/02/2022 Depression Screening 10/02/2022 HIV Screening 10/02/2022 Hepatitis C Screening 10/02/2022 Social Influencers of Health Screening 10/02/2022 COVID-19 Vaccine ( - 2023-2 5 season) 2024 Influenza Vaccine (#1) 2024 [...] patient's age to complete this topic Meningococcal B Vacine Aged Out No lo nger eligible based on patient's age to complete [...]
--- OUTSIDE RECORDS SUMMARY | 2024-12-13 10:20 | XMS_ITS | Continuity of Care Document ---
Author Organization [employer] [facility] [place] [facility] Address [address] [place] [phone] Care Team Providers Care Land Manager Name Role Phone [facility]IC[facility] Primary Care Provider [facility] OTHER Assessment No assessment recorded. [...] Name and Address Organization Details Recorded Time 61514 fentanyl medicatio n Not available Not available Not available 10/22/2024 4337 RxNorm Not Available [facility] - production 4 10:48:14 04100 morphine medicatio n Not available Not available [...] SNOMED-CT Code Diagnosis ICD10 Code Diagnosis Note [id number] Natasha Patricia MD Main - [address] [phone] 10/28/2024 15:34:58 10/29/2024 22:05:52 Upper respiratory infection [id number] J06.9 Acute exac erbation of chronic obstructive pulmonary disease 590486443 J44.1 [id number] Tatianna Chan MD Main - [address] [address] 11/26/2024 14:23:31 11/26/2024 22:25:30 Edema of lower extremity 785443143 R60.0 54 year old female being evaluated [...] assessment and plan as documented by the entertainment manager. I provided real-time medical direction for this [...] Dixon Member ID Guarantor Name 11/26/2024 1 [facility] - DOS ON OR AFTER 2023 - DUAL ELIGIBLE - GROUP HOME OPTIONS AND ONE CARE (MEDICARE REPLACEMENT/ADV ANTAGE - HMO) Indy Beltran is [id number] Indy Dubois Notes Date Note Type Note [...] .................. .................. .................. .................. .................. .................. ............... Center Administrator Note From Johnny Moreland: Dispatch to the [...] .................. .................. .................. .................. .................. .................. ............... [facility] Consulted: Tatianna Chan .................. .................. .................. .................. .................. .................. .................. ............... Disposition: Fulfilled Tatianna Chan MD [address] [facility],[address], [place], [address], FIDEL MEJIA 11/26/2024 14:58:04 OBGyn Episode No OBEpisode recorded.
== END 2024-12-13 10:24 | disposition home or self-care (01) ==
PROVIDERS: PCP Internal Medicine; Visit Provider Registered Nurse Emergency
DX: Z98.1 Arthrodesis status (principal); M53.3 Sacrococcygeal disorders, not elsewhere classified; M47.816 Spondylosis without myelopathy or radiculopathy, lumbar region; M79.18 Myalgia, other site
CPT/HCPCS: 99024

== ENCOUNTER → 2024-12-13 09:49 | Outpatient (BNVA) | payer OTHER, SELFPAY | PROVIDERS: PCP Internal Medicine; Visit Provider Registered Nurse Emergency | DX: M53.3 Sacrococcygeal disorders, not elsewhere classified (principal); M47.816 Spondylosis without myelopathy or radiculopathy, lumbar region; M79.18 Myalgia, other site; Z98.1 Arthrodesis status | CPT/HCPCS: 99212 ==

== ENCOUNTER 2024-12-18 15:50 | Outpatient (REF) | payer OTHER, SELFPAY ==
--- NOTE | ~2024-12-18 | XR_ITS ---
CLINICAL HISTORY: Z98.1 - Arthrodesis status 1 view pelvis Comparison: None Findings: No acute fracture or dislocation. There are degenerative changes of the lumbar spine. No significant degeneration of the bilateral hips. There may be a mild degree of hip dysplasia bilaterally with steep acetabula and partial uncovering of the femoral heads. There are skin ruth overlying the upper sacrum. IMPRESSION: 1. No acute findings. This document has been electronically signed by: Ashley Jones MD on 12/19/2024 14:25:22
--- OUTSIDE RECORDS SUMMARY | 2024-12-18 15:54 | XMS_ITS | Continuity of Care Document ---
Author Organization [facility] [place] [facility] Address [address] [place] [phone] Care Team Providers Care Director Occupational Name Role Phone [facility]IC[facility] Primary Care Provider [facility] OTHER Assessment No assessment recorded. Plan [...] Name and Address Organization Details Recorded Time 62604 fentanyl medicatio n Not available Not available Not available 10/22/2024 4337 RxNorm Not Available [facility] - production 4 10:48:14 84701 morphine medicatio n Not available Not available [...] SNOMED-CT Code Diagnosis ICD10 Code Diagnosis Note [id number] Natasha Patricia MD Main - [address] [phone] 10/28/2024 15:34:58 10/29/2024 22:05:52 Upper respiratory infection [id number] J06.9 Acute exac erbation of chronic obstructive pulmonary disease 228311386 J44.1 [id number] Tatianna Chan MD Main - [address] [address] 11/26/2024 14:23:31 11/26/2024 22:25:30 Edema of lower extremity 882441882 R60.0 54 year old female being evaluated [...] assessment and plan as documented by the ocean freight agent. I provided real-time medical direction for this [...] Dixon Member ID Guarantor Name 11/26/2024 1 [facility] - DOS ON OR AFTER 2023 - DUAL ELIGIBLE - MCC OPTIONS AND ONE CARE (MEDICARE REPLACEMENT/ADV ANTAGE - HMO) Indy Beltran is [id number] Indy Dubois Notes Date Note Type Note [...] .................. .................. .................. .................. .................. .................. ............... Horticulture Instructor Note From Johnny Moreland: Dispatch to the [...] .................. .................. .................. .................. .................. .................. ............... [facility] Consulted: Tatianna Chan .................. .................. .................. .................. .................. .................. .................. ............... Disposition: Fulfilled Tatianna Chan MD [address] [facility],[address], [place], [address], FIDEL MEJIA 11/26/2024 14:58:04 OBGyn Episode No OBEpisode recorded.
--- OUTSIDE RECORDS SUMMARY | 2024-12-18 15:54 | XMS_ITS | Clinical Summary ---
Author Organization [facility] Address [address] [place] [address] Care Team Providers Care Solar Fabrication Technician Name Role Phone Unavailable Primary Care Provider [...]
--- OUTSIDE RECORDS SUMMARY | 2024-12-18 15:54 | XMS_ITS | Data Portability ---
Author Organization Trip[employer]ary [facility], [place] in - [employer] Address [address] [place] [id number] Care Team Providers Care Data Science And Iot Manager Name Role Phone [facility] Primary Care Provider HIM CCA OTHER Assessment Encounter Date Assessment Date Assessment LastModified by Organization Details LastModified Time 10/22/2024 10/22/2024 I have reviewed and agree with the assessment and plan as documented by the policy manager. I provided real-time medical direction for [...] in the field was performed by my policy manager colleague, as noted above, I provided real-time [...] no vomiting or diarrhea. [facility], recommended supportive [...] Ag, QL IA, respiratory specimen 2023 024 [facility], [address] [place] [address], [id number], 4 08:55:22 rapid flu (A+B) 2023 024 [facility], [address] [place] [address], [phone], 4 08:55:37 rapid SARS CoV 2 Ag, QL IA, respiratory specimen 2023 024 [facility], [address] [place] [address], [phone], 4 15:44:40 rapid flu (A+B) 2023 024 [facility], [address] [place] [address], [id number], 4 15:44:40 rapid strep group A, throat 2023 024 [email or web address], [address] [place], [phone], 4 17:44:50 Referral None recorded. Procedures None recorded. Surgeries None recorded. Imaging None recorded. Medication Orders ipratropium 0.5 mg-albutero l 3 mg (2.5 mg base)/3 mL nebulizatio n soln [address], [address] [place] [address], [address], 4 15:52:29 ondansetron 4 mg disintegrat ing tablet [address], [address] [place] [address], [address], 4 15:52:34 ibuprofen 600 mg tablet [address], [address] [place] [address], [address], 4 15:52:42 prednisone 20 mg tablet [address], [address] [place] [address], [address], 4 16:06:03 prednisone 20 mg tablet 2023 024 [facility], [address] [place] [address], [address], 4 16:08:50 azithromyci n 500 mg tablet [address], [address] [place] [address], [address], 4 16:08:47 ipratropium 0.5 mg-albutero l 3 mg (2.5 mg base)/3 mL nebulizatio n soln 2023 024 [email or web address] [facility], [address] [place] [address], [address], 16:08:47 azithromyci n 250 mg tablet 2023 024 SHILOH [facility], [address] [facility], [place], [address], 16:08:50 Patient TargetsNo targets recorded. Patient InstructionsNo [...] Name and Address Organization Details Recorded Time 98693 fentanyl medicatio n Not available Not available Not available 10/22/2024 4337 RxNorm Not Available [facility] - production 10:48:14 23026 morphine medicatio n Not available Not available [...] Address Organization Details Last Updated DateTime 4 171783. 08 g 98.4 [degF] 96 % 96 [...] /min 92 % 92 % 98.6 [degF] 301801. 08 g 170.18 cm 144 mm[Hg] 83 mm[Hg] Not Available [employer] [facility] - production 4 15:35:00 Date Recorded Oxygen saturation Oxygen saturation in Arterial blood by Pulse oximetry Body temperature Heart rate Respiratory rate Systolic blood pressure Diastolic blood pressure Provider Name and Address Organization Details Last Updated DateTime 5 98 % 98 % 97.8 [degF] 80 /min 16 /min 170 mm[Hg] 90 mm[Hg] Not Available [facility] - [employer] 5 14:30:36 Social History None recorded. Functional Status None recorded. Mental Status None recorded. Family History Nothing Reported. Medical History No medical history recorded. Gynecological HistoryNo gynecological history recorded. Obstetrics History GPAL:G 0 P 0 0 0 0 Past Encounters Encounter ID Performer Location Encounter Start Date Encounter Closed Date Diagnosis/Indication Diagnosis SNOMED-CT Code Diagnosis ICD10 Code Diagnosis Note [id number] Jailene Stephens MD Main - [facility] [address] [place] [phone] 10/22/2024 15:27:32 10/22/2024 19:10:23 Viral upper respiratory tract infection 141930965 J06.9 [id number] Natasha Patricia MD Main - [facility] [address] [place] [phone] 10/28/2024 15:34:58 10/29/2024 22:05:52 Upper respiratory infection 63206837 J06.9 Acute exac erbation of chronic obstructive pulmonary disease 383716578 J44.1 [id number] Tatianna Chan MD Main - [address] [phone] 11/26/2024 14:23:31 11/26/2024 22:25:30 Edema of lower extremity 414411979 R60.0 54 year old female being evaluated [...] assessment and plan as documented by the policy manager. I provided real-time medical direction for [...] Dixon Member ID Guarantor Name 10/22/2024 1 [facility] - DOS ON OR AFTER 2023 - DUAL ELIGIBLE - RETIREMENT OPTIONS AND ONE CARE (MEDICARE REPLACEMENT/ADV ANTAGE - HMO) Indy Beltran is [id number] Indy Dubois 10/28/2024 1 [facility] - DOS ON OR AFTER 2023 - DUAL ELIGIBLE - RETIREMENT OPTIONS AND ONE CARE (MEDICARE REPLACEMENT/ADV ANTAGE - HMO) Indy Beltran is [id number] Indy Dubois 11/26/2024 1 [facility] - DOS ON OR AFTER 2023 - DUAL ELIGIBLE - RETIREMENT OPTIONS AND ONE CARE (MEDICARE REPLACEMENT/ADV ANTAGE - HMO) Indy Beltran is [id number] Indy Dubois Notes Date Note Type Note [...] with talking. Taking Tylenol for symptom relief. [employer] Organization Information for Shelly Atkinson [employer] Legal Name: [employer], [employer]? Address: [address] [place] [address], Fence Making Machine Operator: Alberto DHILLON No.: [id number] [employer] POC Test Results from Shelly Atkinson Rapid influenza antigen (15:25:54) Flu: - Rapid COVID antigen (15:25:55) COVID: - Rapid strep test (15:25:56) Strep: - .................. .................. .................. .................. .................. .................. .................. ............... [employer] Note From Shelly Atkinson: Sent to a [...] covid/flu test: neg; Rapid strep test: neg; [facility] consulted; pt advised to continue symptomatic treatment. Red flags discussed. Pt has no further questions. .................. .................. .................. .................. .................. .................. .................. ............... [facility] Consulted: Jailene Stephens .................. .................. .................. .................. .................. .................. .................. ............... Disposition: Fazal Jailene Stephens MD [address] [facility],[address], [place], [address], [employer] 10/22/2024 17:44:52 10/28/2024 text/html CRC Nurse Triage [...] robitussin. She would like to be re-evaluated. [employer] Organization Information for Azael Lambert [employer] Legal Name: [employer]? Address: [address] [place] [id number], Fence Making Machine Operator: Alberto Garcia MD CLIA No.: [id number] [employer] POC Test Results from Azael Lambert Rapid COVID antigen (15:30:53) COVID: - Rapid influenza antigen (15:30:58) Flu: - .................. .................. .................. .................. .................. .................. .................. ............... [employer] Note From Azael Lambert: [facility] makes pt contact a 54 yo F CC of Cold like S/sMIH obtains vital signs. PT test negative for covid and flu. PT has allergies to morphine and fentanyl. PT has hx of COPD. PT explains [facility] and has gotten worse since then. pt complains of chest congestion, chills, sinus pressure, productive cough (yellow phelgm), running nose (yellow mucus), decreased appetite, nausea, no vomiting. PT able to keep foods down. PT using cough syrup, albuterol MDI, and tyelonl. [facility] contacts [facility] and explains above mentioned. [facility] orders 500mg of azithromycin, 40mg of prednisone, 4mg zofran odt, 600mg of ibuprofen. PT is given two duo nebs with significant relief of SOB. [facility] treats pt for PNA. [facility] sends prescription of azithromycin and prednisone to pt confirmed pharmacy. PT is advised that if she develops a fever not controlled by tyelonl or gets chest pain that she should call 911. Otherwise to continue prescribed medications and call us back for reevaluation. [facility] sana. .................. .................. .................. .................. .................. .................. .................. ............... [facility] Consulted: Natasha Patricia .................. .................. .................. .................. .................. .................. .................. ............... Disposition: Fazal Natasha Patricia MD [address] [place] [address],[address], [place], [address], [employer] 10/28/2024 17:18:41 11/26/2024 text/html CRC Nurse Triage [...] .................. .................. .................. .................. .................. .................. ............... [employer] Note From Johnny Moreland: Dispatch to the [...] .................. .................. .................. .................. .................. .................. ............... [facility] Consulted: Tatianna Chan .................. .................. .................. .................. .................. .................. .................. ............... Disposition: Fulfilled Tatianna Chan MD [address] [facility],[address], [place], [address], [employer] [facility] 11/26/2024 14:58:04 OBGyn Episode No OBEpisode recorded.
== END 2024-12-18 15:51 | disposition home or self-care (01) ==
LOC: HO.XRAY 15:50
PROVIDERS: PCP Internal Medicine; Visit Provider Registered Nurse Emergency
DX: Z98.1 Arthrodesis status (principal)
CPT/HCPCS: 72170

== ENCOUNTER → 2024-12-18 15:55 | Outpatient (BNV) | payer OTHER, SELFPAY | PROVIDERS: PCP Internal Medicine; Visit Provider Radiology Diagnostic Radiology | DX: Z98.1 Arthrodesis status (principal) | CPT/HCPCS: 72170 ==

== ENCOUNTER 2024-12-20 09:59 | Outpatient (AMB) | payer OTHER, SELFPAY ==
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
[2024-12-20 10:04] VITALS: BP 170/81; PULSE 84; O2SAT 97; BMI 39.8
--- OUTSIDE RECORDS SUMMARY | 2024-12-20 10:43 | XMS_ITS | Continuity of Care Document ---
Author Organization [employer] [facility] [facility] Address [address] [place] [phone] Care Team Providers Care Reduction Plant Supervisor Name Role Phone [facility] Primary Care Provider [facility] OTHER Assessment No assessment [...] Name and Address Organization Details Recorded Time 47333 fentanyl medicatio n Not available Not available Not available 10/22/2024 4337 RxNorm Not Available [facility] - production 4 10:48:14 15606 morphine medicatio n Not available Not available [...] SNOMED-CT Code Diagnosis ICD10 Code Diagnosis Note [id number] Natasha Patricia MD Main - [address] [phone] 10/28/2024 15:34:58 10/29/2024 22:05:52 Upper respiratory infection [id number] J06.9 Acute exac erbation of chronic obstructive pulmonary disease [id number] J44.1 [id number] Tatianna Chan MD Main - [address] [phone] 11/26/2024 14:23:31 11/26/2024 22:25:30 Edema of lower extremity 251350082 R60.0 54 year old female being evaluated [...] assessment and plan as documented by the light rail train operator. I provided real-time medical direction for [...] Dixon Member ID Guarantor Name 11/26/2024 1 [facility] - DOS ON OR AFTER 2023 - DUAL ELIGIBLE - SNF OPTIONS AND ONE CARE (MEDICARE REPLACEMENT/ADV ANTAGE - HMO) Indy Beltran is [id number] Indy Dubois Notes Date Note Type Note [...] .................. .................. .................. .................. .................. .................. ............... Braille Teacher Note From Johnny Moreland: Dispatch to the [...] .................. .................. .................. .................. .................. .................. ............... [facility] Consulted: Tatianna Chan .................. .................. .................. .................. .................. .................. .................. ............... Disposition: Fulfilled Tatianna Chan MD [address] [facility], [place], [address], [employer] 11/26/2024 14:58:04 OBGyn Episode No OBEpisode recorded.
--- OUTSIDE RECORDS SUMMARY | 2024-12-20 10:43 | XMS_ITS | Clinical Summary ---
Author Organization [facility] Address [address] [place] [address] Care Team Providers Care Driver Utility Worker Name Role Phone Unavailable Primary Care Provider [...]
--- OUTSIDE RECORDS SUMMARY | 2024-12-20 10:43 | XMS_ITS | Data Portability ---
Author Organization [employer] [facility], [place] [facility] [employer] Address [address] [place] [id number] Care Team Providers Care Florist Designer Name Role Phone [facility] [place] [place] [facility] Primary Care Provider HIM [facility] OTHER Assessment Encounter Date Assessment Date Assessment LastModified by Organization Details LastModified Time 10/22/2024 10/22/2024 I have reviewed and agree with the assessment and plan as documented by the septic technician. I provided real-time medical direction for this [...] in the field was performed by my septic technician colleague, as noted above, I provided real-time [...] no vomiting or diarrhea. [facility] recommended supportive care. [...] Ag, QL IA, respiratory specimen 2023 024 [facility], [address] [place] [address], [id number], 4 08:55:22 rapid flu (A+B) 2023 024 [facility], [address] [place] [address], [id number], 4 08:55:37 rapid SARS CoV 2 Ag, QL IA, respiratory specimen 2023 024 [facility], [address] [place] [address], [id number], 4 15:44:40 rapid flu (A+B) 2023 024 [facility], [address] [place] [address], [id number], 4 15:44:40 rapid strep group A, throat 2023 024 [email or web address], [address] [place], [phone], 4 17:44:50 Referral None recorded. Procedures None recorded. Surgeries None recorded. Imaging None recorded. Medication Orders ipratropium 0.5 mg-albutero l 3 mg (2.5 mg base)/3 mL nebulizatio n soln [address], [address] [place] [address], [address], 4 15:52:29 ondansetron 4 mg disintegrat ing tablet [address], [address] [place] [address], [address], 4 15:52:34 ibuprofen 600 mg tablet [address], [address] [place] [address], [address], 4 15:52:42 prednisone 20 mg tablet [address], [address] [place] [address], [address], 4 16:06:03 prednisone 20 mg tablet 2023 024 [facility], [address] [place] [address], [address], 4 16:08:50 azithromyci n 500 mg tablet [address], [address] [place] [address], [address], 4 16:08:47 ipratropium 0.5 mg-albutero l 3 mg (2.5 mg base)/3 mL nebulizatio n soln 2023 024 [email or web address] [facility], [address] [place] [address], [address], 16:08:47 azithromyci n 250 mg tablet 2023 024 SHILOH [facility], [address] [facility], [place], [address], 16:08:50 Patient TargetsNo targets recorded. Patient InstructionsNo [...] Name and Address Organization Details Recorded Time 71743 fentanyl medicatio n Not available Not available Not available 10/22/2024 4337 RxNorm Not Available [facility] - production 10:48:14 38772 morphine medicatio n Not available Not available [...] Address Organization Details Last Updated DateTime 4 177111. 08 g 98.4 [degF] 96 % 96 [...] /min 92 % 92 % 98.6 [degF] 918564. 08 g 170.18 cm 144 mm[Hg] 83 mm[Hg] Not Available [facility] 4 15:35:00 Date Recorded Oxygen saturation Oxygen saturation in Arterial blood by Pulse oximetry Body temperature Heart rate Respiratory rate Systolic blood pressure Diastolic blood pressure Provider Name and Address Organization Details Last Updated DateTime 5 98 % 98 % 97.8 [degF] 80 /min 16 /min 170 mm[Hg] 90 mm[Hg] Not Available [facility] [employer] 5 14:30:36 Social History None recorded. Functional Status None recorded. Mental Status None recorded. Family History Nothing Reported. Medical History No medical history recorded. Gynecological HistoryNo gynecological history recorded. Obstetrics History GPAL:G 0 P 0 0 0 0 Past Encounters Encounter ID Performer Location Encounter Start Date Encounter Closed Date Diagnosis/Indication Diagnosis SNOMED-CT Code Diagnosis ICD10 Code Diagnosis Note [id number] Jailene Stephens MD [facility] - [facility] [address] [place] [phone] 10/22/2024 15:27:32 10/22/2024 19:10:23 Viral upper respiratory tract infection 238238304 J06.9 [id number] Natasha Patricia MD Main - [facility] [address] [place] [phone] 10/28/2024 15:34:58 10/29/2024 22:05:52 Upper respiratory infection 16524197 J06.9 Acute exac erbation of chronic obstructive pulmonary disease 835455201 J44.1 [id number] Tatianna Chan MD Main - [address] [phone] 11/26/2024 14:23:31 11/26/2024 22:25:30 Edema of lower extremity 903244515 R60.0 54 year old female being evaluated [...] assessment and plan as documented by the septic technician. I provided real-time medical direction for this [...] Dixon Member ID Guarantor Name 10/22/2024 1 [facility] - DOS ON OR AFTER 2023 - DUAL ELIGIBLE - INTERMEDIATE OPTIONS AND ONE CARE (MEDICARE REPLACEMENT/ADV ANTAGE - HMO) Indy Beltran is [id number] Indy Dubois 10/28/2024 1 [facility] - DOS ON OR AFTER 2023 - DUAL ELIGIBLE - INTERMEDIATE OPTIONS AND ONE CARE (MEDICARE REPLACEMENT/ADV ANTAGE - HMO) Indy Beltran is [id number] Indy Dubois 11/26/2024 1 [facility] - DOS ON OR AFTER 2023 - DUAL ELIGIBLE - INTERMEDIATE OPTIONS AND ONE CARE (MEDICARE REPLACEMENT/ADV ANTAGE - HMO) Indy Beltran is [id number] Indy Dubois Notes Date Note Type Note [...] with talking. Taking Tylenol for symptom relief. [employer] Organization Information for Shelly Atkinson [email or web address] Legal Name: [employer]? Address: [address] [place] [address], Transmission Specialist: Alberto DHILLON No.: [id number] [employer] POC Test Results from Shelly Atkinson Rapid influenza antigen (15:25:54) Flu: - Rapid COVID antigen (15:25:55) COVID: - Rapid strep test (15:25:56) Strep: - .................. .................. .................. .................. .................. .................. .................. ............... [employer] Note From Shelly Atkinson: Sent to a [...] covid/flu test: neg; Rapid strep test: neg; [facility] consulted; pt advised to continue symptomatic treatment. Red flags discussed. Pt has no further questions. .................. .................. .................. .................. .................. .................. .................. ............... [facility] Consulted: Jailene Stephens .................. .................. .................. .................. .................. .................. .................. ............... Disposition: Fazal Jailene Stephens MD [address] [facility],[address], [place], [phone], [employer] 10/22/2024 17:44:52 10/28/2024 text/html CRC Nurse Triage [...] robitussin. She would like to be re-evaluated. [employer] Organization Information for Azael Lambert Business Legal Name: [employer]? Address: [address] [place] [address], Transmission Specialist: Alberto Garcia MD CLIA No.: [id number] [employer] POC Test Results from Azael Lambert Rapid COVID antigen (15:30:53) COVID: - Rapid influenza antigen (15:30:58) Flu: - .................. .................. .................. .................. .................. .................. .................. ............... [employer] Note From Azael Lambert: [facility] makes pt contact a 54 yo F CC of Cold like S/sMIH obtains vital signs. PT test negative for covid and flu. PT has allergies to morphine and fentanyl. PT has hx of COPD. PT explains she was seen by [facility] on the and has gotten worse since then. pt complains of chest congestion, chills, sinus pressure, productive cough (yellow phelgm), running nose (yellow mucus), decreased appetite, nausea, no vomiting. PT able to keep foods down. PT using cough syrup, albuterol MDI, and tyelonl. [facility] contacts [facility] and explains above mentioned. [facility] orders 500mg of azithromycin, 40mg of prednisone, 4mg zofran odt, 600mg of ibuprofen. PT is given two duo nebs with significant relief of SOB. [facility] treats pt for PNA. [facility] sends prescription of azithromycin and prednisone to pt confirmed pharmacy. PT is advised that if she develops a fever not controlled by tyelonl or gets chest pain that she should call 911. Otherwise to continue prescribed medications and call us back for reevaluation. [facility] sana. .................. .................. .................. .................. .................. .................. .................. ............... [facility] Consulted: Natasha Patricia .................. .................. .................. .................. .................. .................. .................. ............... Disposition: Fazal Natasha Patricia MD [address] [place] [address],[address], [place], [phone], [id number] 10/28/2024 17:18:41 11/26/2024 text/html CRC Nurse Triage [...] .................. .................. .................. .................. .................. .................. ............... [employer] Note From Johnny Moreland: Dispatch to the [...] .................. .................. .................. .................. .................. .................. ............... [facility] Consulted: Tatianna Chan .................. .................. .................. .................. .................. .................. .................. ............... Disposition: Fulfilled Tatianna Chan MD [address] [facility],[address], [place], [phone], [employer] [facility] 11/26/2024 14:58:04 OBGyn Episode No OBEpisode recorded."
== END 2024-12-20 10:28 | disposition home or self-care (01) ==
PROVIDERS: PCP Internal Medicine; Visit Provider Registered Nurse Emergency
DX: M53.3 Sacrococcygeal disorders, not elsewhere classified (principal); M47.816 Spondylosis without myelopathy or radiculopathy, lumbar region; M79.18 Myalgia, other site
CPT/HCPCS: 99024

== ENCOUNTER → 2024-12-20 09:59 | Outpatient (BNVA) | payer OTHER, SELFPAY | PROVIDERS: PCP Internal Medicine; Visit Provider Registered Nurse Emergency | DX: M53.3 Sacrococcygeal disorders, not elsewhere classified (principal); M47.816 Spondylosis without myelopathy or radiculopathy, lumbar region; M79.18 Myalgia, other site | CPT/HCPCS: 99212 ==